=== PATIENT | female | born 1965 | race Caucasian/White ===

== ENCOUNTER 2018-01-28 01:25 | Emergency (ER) | payer OTHER ==
--- OUTSIDE RECORDS SUMMARY | 2018-01-28 01:27 | XMS REPORT ---
:1965 Author Organization [facility] Address [address] [place] [address] Dr. Baker [address] [place] [id number] Care Team Providers Name Role Phone Sg CORDOVA Primary Care Provider Unavailable MARKO CORDOVA M.D. Unavailable Unavailable Problems This patient has no known problems. Allergies, Adverse Reactions, Alerts This patient has no known allergies or adverse reactions. Medications This patient has no known medications. Results Test Description Test Time Test Comments Text Results Atomic Results Result Comments POC Glucose, Blood 2017-11-03 05:26:00 Test Item Value Reference Range Comments POC Glucose (test code=POCGLUC) 136 mg/dL 70-115 Notify RN or MDIf you consider your patient critically ill, the Moira Accu-Chek InformII metershould not be used for Glucose determinations.Draw a venous Glucose and send to the Main Lab for Analysis. [id number] 08:15:00 Test Item Value Reference Range Comments [place] (test code=LI) 0.44 mmol/L 0.6-1.2 POC Glucose, [id number] 05:37:00 Test Item Value Reference Range Comments POC Glucose (test 134 mg/dL 70-115 If you consider your patient code=POCGLUC) critically ill, the Moira Accu-Chek InformII metershould not be used for Glucose determinations.Draw a venous Glucose and send to the Main Lab for Analysis. POC Glucose, [id number] 07:28:00 Test Item Value Reference Range Comments POC Glucose (test 128 mg/dL 70-115 If you consider your patient code=POCGLUC) critically ill, the Moira Accu-Chek InformII metershould not be used for Glucose determinations.Draw a venous Glucose and send to the Main Lab for Analysis. POC Glucose, [id number] 20:18:00 Test Item Value Reference Range Comments POC Glucose (test 121 mg/dL 70-115 If you consider your patient code=POCGLUC) critically ill, the [place]ira Accu-Chek InformII metershould not be used for Glucose determinations.Draw a venous Glucose and send to the Main Lab for Analysis. BHCG, Serum, [id number] 22:36:00 Test Item Value Reference Range Comments Preg Qual [Se] (test code=BSHCG) Negative Negative POC Glucose, [id number] 15:14:00 Test Item Value Reference Range Comments POC Glucose (test 117 mg/dL 70-115 If you consider your patient code=POCGLUC) critically ill, the Moira Accu-Chek InformII metershould not be used for Glucose determinations.Draw a venous Glucose and send to the Main Lab for Analysis.
[2018-01-28] MEDS ORDERED: LIDOCAINE VISCOUS 2% SOLN 15 ML UDC ONE (02:03)
--- NOTE | 2018-01-28 02:09 | EDPHYS ---
Physician Documentation [facility] Name: Wendi Norton Age: 52 yrs Sex: Female : 1965 Arrival Date: 01/28/2018 Time: 01:26 Bed 18 Private MD: ED Physician Cornelius Vyas HPI: 01/28 01:38 This 52 yrs old Female presents to ER via EMS with complaints of Vaginal Pain.snw 01:38 The patient presents with vaginal pain. Onset: The symptoms/episode began/occurred snw suddenly, just prior to arrival. Modifying factors: The symptoms are alleviated by nothing, the symptoms are aggravated by movement, sexual intercourse, walking, urinating. Associated signs and symptoms: The patient has no apparent associated signs or symptoms. Severity of symptoms: At their worst the symptoms were moderate, severe. The patient has experienced a previous episode, many years ago. It is unknown whether or not the patient has recently seen a physician. 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 - Social history:: Smoking status: unknown. ROS: 01:37 Constitutional: Negative for fever, chills, and weight loss, Eyes: Negative for injury, snw pain, redness, and discharge, ENT: Negative for injury, pain, and discharge, Neck: Negative for injury, pain, and swelling, Cardiovascular: Negative for chest pain, palpitations, and edema, Respiratory: Negative for shortness of breath, cough, wheezing, and pleuritic chest pain, Abdomen/GI: Negative for abdominal pain, nausea, vomiting, diarrhea, and constipation, Back: Negative for injury and pain, MS/Extremity: Negative for injury and deformity, Skin: Negative for injury, rash, and discoloration, Neuro: Negative for headache, weakness, numbness, tingling, and seizure, Psych: Negative for depression, anxiety, suicide ideation, homicidal ideation, and hallucinations. 01:37 : Positive for urinary symptoms, vaginal burning. Exam: 01:35 Constitutional: This is a well developed, well nourished patient who is awake, alert, snw and in no acute distress. Head/Face: Normocephalic, atraumatic. Eyes: Pupils equal round and reactive to light, extra-ocular motions intact. Lids and lashes normal. Conjunctiva and sclera are non-icteric and not injected. Cornea within normal limits. Periorbital areas with no swelling, redness, or edema. ENT: Nares patent. No nasal discharge, no septal abnormalities noted. Tympanic membranes are normal and external auditory canals are clear. Oropharynx with no redness, swelling, or masses, exudates, or evidence of obstruction, uvula midline. Mucous membranes moist. Neck: Trachea midline, no thyromegaly or masses palpated, and no cervical lymphadenopathy. Supple, full range of motion without nuchal rigidity, or vertebral point tenderness. No Meningismus. Chest/axilla: Normal chest wall appearance and motion. Nontender with no deformity. No lesions are appreciated. Cardiovascular: Regular rate and rhythm with a normal S1 and S2. No gallops, murmurs, or rubs. Normal PMI, no JVD. No pulse deficits. Respiratory: Lungs have equal breath sounds bilaterally, clear to auscultation and percussion. No rales, rhonchi or wheezes noted. No increased work of breathing, no retractions or nasal flaring. Abdomen/GI: Soft, non-tender, with normal bowel sounds. No distension or tympany. No guarding or rebound. No evidence of tenderness throughout. Back: No spinal tenderness. No costovertebral tenderness. Full range of motion. Pelvic Exam: Tender external genital. Pt unwilling to allow full view. Hx of blistered lesions to perineal before. Will place topical lidocaine and eval cath urine Skin: Warm, dry with normal turgor. Normal color with no rashes, no lesions, and no evidence of cellulitis. MS/ Extremity: Pulses equal, no cyanosis. Neurovascular intact. Full, normal range of motion. Neuro: Awake and alert, GCS 15, oriented to person, place, time, and situation. Cranial nerves II-XII grossly intact. Motor strength 5/5 in all extremities. Sensory grossly intact. Cerebellar exam normal. Normal gait. Psych: Awake, alert, with orientation to person, place and time. Behavior, mood, and affect are within normal limits. Vital Signs: 01:33 BP 114 / 62; Pulse 87; Resp 20 S; Temp 98.2(O); Pulse Ox 97% on R/A; Weight 86.18 kg bb (R); Height 5 ft. 4 in. (162.56 cm) (R); Pain 9/10; 02:20 BP 120 / 75; Pulse 86; Resp 17 S; Pulse Ox 97% on R/A; jd3 01:33 Body Mass Index 32.61 (86.18 kg, 162.56 cm) bb MDM: 01:27 Patient medically screened. snw 02:11 Data reviewed: vital signs, nurses notes. Data interpreted: Pulse oximetry: on room air snw is 97 %. Interpretation: normal. Counseling: I had a detailed discussion with the patient and/or guardian regarding: the historical points, exam findings, and any diagnostic results supporting the discharge/admit diagnosis, the need for outpatient follow up, to return to the emergency department if symptoms worsen or persist or if there are any questions or concerns that arise at home. Special discussion: Based on the history and exam findings, there is no indication for further emergent testing or inpatient evaluation. I discussed with the patient/guardian the need to see the OB Gyne specialist for further evaluation of the symptoms. I discussed with the patient/guardian the need to see the primary care provider for further evaluation of the symptoms. 01/28 01:40 Order name: Urine Culture w 01/28 01:40 Order name: Urine Microscopic Only w 01/28 02:06 Order name: Urine Dipstick--Ancillary (enter results) rg2 01/28 02:35 Order name: Urine Dipstick-Ancillary; Complete Time: 16:10 EDMS 01/28 02:49 Order name: Urine Microscopic Only; Complete Time: 16:10 EDMS 01/28 01:40 Order name: Cath; Complete Time: 01:56 snw 01/28 01:40 Order name: Urine Dipstick-Ancillary (obtain specimen); Complete Time: 01:56 snw Administered Medications: 02:01 Drug: Lidocaine Gel 2 % 1 application Route: Mucous Membrane; ea Disposition: 06:14 Co-signature as Attending Physician, Cornelius Vyas MD. Disposition: 01/28/18 02:08 Discharged to Home. Impression: Pain in vagina, Dysuria. - Condition is Stable. - Discharge Instructions: Dysuria, Sitz Bath, Atrophic Vaginitis, [id number]. - Prescriptions for Lubricating Plus - Apply to affected area 1 application by VAGINAL route 2 times per day; 1 Container. - Medication Reconciliation Form, Thank You Letter, Antibiotic Education, Prescription Opioid Use form. - Follow up: Private Physician; When: Tomorrow; Reason: Recheck today's complaints, Continuance of care, Re-evaluation by your physician. Follow up: Emergency Department; When: As needed; Reason: Worsening of condition. Signatures: Dispatcher [employer] EDMS Sveta Moss, MAILING MANAGER-C MAILING MANAGER-Csnw Carli Ren, RN RN Akua Campbell RN Cornelius Olson ea, MD MD gs Davies, Jonathon RN RN jd3
--- NOTE | 2018-01-28 02:09 | ER ---
Nurse's Notes [facility] Name: Wendi Norton Age: 52 yrs Sex: Female : 1965 Arrival Date: 01/28/2018 Time: : Bed 18 Private MD: Diagnosis: Pain in vagina;Dysuria Presentation: 01/28 01:20 Presenting complaint: EMS states: they were toned out for report of pt having vaginal bb pain. Transition of care: patient was not received from another setting of care. Onset of symptoms was January 28, 2018. Care prior to arrival: None. 01:20 Method Of Arrival: EMS: [facility] bb 01:20 Acuity: RAUL 3 bb [place]: 02:23 LMP N/A - Post-menopause jd3 Historical: - Allergies: : NKDA; bb - PMHx: :33 Asthma; Bipolar disorder; COPD; Depression; Diabetes - NIDDM; Diverticulitis; bb Hepatitis; PTSD; - Immunization history:: Adult Immunizations unknown. - Social history:: Smoking status: unknown. Screenin:34 Abuse screen: Denies threats or abuse. Nutritional screening: No deficits noted. jd3 Tuberculosis screening: No symptoms or risk factors identified. Fall Risk Mental Status- Overestimates/Forgets Limitations (15 pts.). Total Singleton Fall Scale indicates No Risk (0-24 pts). Assessment: 01:30 General: Appears in no apparent distress. uncomfortable, Behavior is calm, cooperative, jd3 appropriate for age. Pain: Complains of pain in suprapubic area Quality of pain is described as aching, sharp. Neuro: Level of Consciousness is awake, alert, obeys commands, Oriented to person, place, time, situation. Cardiovascular: Heart tones S1 S2 present Capillary refill < 3 seconds Patient's skin is warm and dry. Respiratory: Airway is patent Respiratory effort is even, unlabored, Respiratory pattern is regular, symmetrical, Breath sounds are clear bilaterally. GI: Abdomen is round Bowel sounds present X 4 quads. Abd is soft Abdomen is tender to palpation in suprapubic area. : No signs and/or symptoms were reported regarding the genitourinary system. EENT: No signs and/or symptoms were reported regarding the EENT system. Derm: Skin is intact, Skin is dry, Skin is normal, Skin temperature is warm. Musculoskeletal: Circulation, motion, and sensation intact. Range of motion: intact in all extremities. 02:00 Reassessment: Patient appears in no apparent distress at this time. Patient and/or jd3 family updated on plan of care and expected duration. Pain level reassessed. Patient is alert, oriented x 3, equal unlabored respirations, skin warm/dry/pink. pt requesting pain medication, provider notified, no new orders at this time. 02:21 Reassessment: Patient appears in no apparent distress at this time. Patient and/or jd3 family updated on plan of care and expected duration. Pain level reassessed. Patient is alert, oriented x 3, equal unlabored respirations, skin warm/dry/pink. pt reporting some pain relief while sitting upright, continues to request pain medication, provider notified, no new orders at this time. 03:10 Reassessment: Patient appears in no apparent distress at this time. Patient and/or jd3 family updated on plan of care and expected duration. Pain level reassessed. Patient is alert, oriented x 3, equal unlabored respirations, skin warm/dry/pink. pt reported understanding of discharge instructions, even and steady gait upon discharge. Vital Signs: 01:33 BP 114 / 62; Pulse 87; Resp 20 S; Temp 98.2(O); Pulse Ox 97% on R/A; Weight 86.18 kg bb (R); Height 5 ft. 4 in. (162.56 cm) (R); Pain 9/10; 02:20 BP 120 / 75; Pulse 86; Resp 17 S; Pulse Ox 97% on R/A; jd3 01:33 Body Mass Index 32.61 (86.18 kg, 162.56 cm) bb ED Course: 01:26 Patient arrived in ED. ds1 01:27 [facility] snw 01:27 Cornelius Vyas MD is Attending Physician. snw 01:30 Eduin Nuno RN is Primary Nurse. jd3 01:32 Triage completed. bb 01:33 Arm band placed on Patient placed in an exam room, on a stretcher, on pulse oximetry. bb 01:34 Patient has correct armband on for positive identification. Bed in low position. Call jd3 light in reach. Side rails up X2. 03:08 No provider procedures requiring assistance completed. Patient did not have IV access jd3 during this emergency room visit. Administered Medications: 02:01 Drug: Lidocaine Gel 2 % 1 application Route: Mucous Membrane; ea Output: 02:01 Urine: 700ml (Straight Cath); Total: 700ml. ea Outcome: 02:08 Discharge ordered by . polo 03:09 Discharged to home ambulatory. jd3 03:09 Condition: stable 03:09 Discharge instructions given to patient, Instructed on discharge instructions, follow up and referral plans. medication usage, Demonstrated understanding of instructions, follow-up care, medications, Prescriptions given X 1. 03:09 Patient left the ED. jd3 Addendum: 01/31/2018 09:17 Addendum: Culture Results: Positive urine culture. Patient was not prescribed i w antibiotics at discharge. Report given to KEO for further evaluation and then to quality improvement analyst for follow up with patient. Phone call Attempt #1 pt did not answer, left voice mail with call back number. Signatures: Sveta Moss, PRODUCTION BORING MACHINE OPERATOR-C PRODUCTION BORING MACHINE OPERATOR-Csnw Luana Villegas ds1 Carli Ren, RN RN Danette Thomas, RN Akua Ramos, Eduin Parsons RN, ea, RN RN jd3
[2018-01-28 02:35] LABS: Urine Blood TRACE (NEG); Urine Glucose NEGATIVE (NEG); Urine Protein NEGATIVE (NEG)
[2018-01-28 02:48] LABS: Urine Bacteria <20 /HPF (<20); Urine Culture Reflex Order NOT NEEDED; Urine RBC <5 /HPF (NONE SEEN)
[2018-01-28 03:22] VITALS: TEMP 98.2; O2SAT 97
[2018-01-28 03:23] VITALS: BP 120/75
== END 2018-01-28 03:09 | disposition home or self-care (01) ==
LOC: ER 01:25
DX: R30.0 Dysuria (principal)
CPT/HCPCS: 81003; 81015; 87077; 87086; 87088; 87186; 99284

== ENCOUNTER 2018-05-03 13:16 | Emergency (ER) | payer OTHER ==
--- OUTSIDE RECORDS SUMMARY | 2018-05-03 13:20 | XMS REPORT ---
:1965 Author Organization [facility] Address [address] [place] [address] Dr. Baker [address] [place] [address] Care Team Providers Name Role Phone MARKO CORDOVA Primary Care Provider Unavailable MARKO CORDOVA [...] send to the Main Lab for Analysis. [id number] 08:15:00 Test Item Value Reference Range Comments [place] (test code=LI) 0.44 mmol/L 0.6-1.2 POC Glucose, [id number] 05:37:00 Test Item Value Reference Range Comments POC Glucose (test 134 mg/dL 70-115 If you consider your patient code=POCGLUC) critically ill, the Moira Accu-Chek InformII metershould not be used for Glucose determinations.Draw a venous Glucose and send to the Main Lab for Analysis. POC Glucose, [id number] 07:28:00 Test Item Value Reference Range Comments POC Glucose (test 128 mg/dL 70-115 If you consider your patient code=POCGLUC) critically ill, the Moira Accu-Chek InformII metershould not be used for Glucose determinations.Draw a venous Glucose and send to the Main Lab for Analysis. POC Glucose, [id number] 20:18:00 Test Item Value Reference Range Comments POC Glucose (test 121 mg/dL 70-115 If you consider your patient code=POCGLUC) critically ill, the Moira Accu-Chek InformII metershould not be used for Glucose determinations.Draw a venous Glucose and send to the Main Lab for Analysis. BHCG, Serum, [id number] 22:36:00 Test Item Value Reference Range Comments Preg Qual [Se] (test code=BSHCG) Negative Negative POC Glucose, [id number] 15:14:00 Test Item Value Reference Range Comments POC Glucose (test 117 mg/dL 70-115 If you consider your patient code=POCGLUC) critically ill, the Moira Accu-Chek InformII metershould not be used for Glucose determinations.Draw a venous Glucose and send to the Main Lab for Analysis.
--- OUTSIDE RECORDS SUMMARY | 2018-05-03 13:20 | XMS REPORT | Clinical Summary ---
:1965 Author Organization [facility] Address [address] [place] [address] Phone Care Team Providers Name Role Phone Unavailable Primary Care Provider Unavailable Allergies No Known Allergies Current Medications Prescription Sig. Disp. Refills Start Date End Date Status QUEtiapine (SEROQUEL) Take 100 mg by mouth Active 100 MG tablet nightly. lithium 150 MG capsule Take 300 mg by mouth. Active FLUOXETINE, BULK, MISC 40 mg by Miscellaneous Active route . clonazePAM (KLONOPIN) Take 2 mg by mouth 2 Active 2 MG tablet (two) times daily as needed for Anxiety. dextroamphetamine-amph Take 10 mg by mouth. Active etamine 5 mg Tab pregabalin (LYRICA) 50 Take 50 mg by mouth 3 Active MG capsule (three) times daily. topiramate (TOPAMAX) Take 50 mg by mouth 2 Active 50 MG tablet (two) times daily. Active Problems Problem Noted Date Shortness of breath 04/22/2016 Social History Tobacco Use Types Packs/Day Years Used Date Current Every Day Smoker Smokeless Tobacco: Never Used Alcohol Use Drinks/Week oz/Week Comments No Sex Assigned at Date Recorded Not on file Last Filed Vital Signs Not on file Plan of Treatment Not on file Results Not on fileafter 05/02/2017
--- NOTE | 2018-05-03 14:58 | ER ---
Nurse's Notes [facility] Name: Wendi Norton Age: 52 yrs Sex: Female : 1965 Arrival Date: 05/03/2018 Time: 13:21 Bed 24 Private MD: None, None Diagnosis: Cellulitis of chest wall Presentation: 05/03 13:24 Presenting complaint: Patient states: recently had a partial mastectomy to the left sv breast and reports drainage and foul smell. Was done about a week and a half ago. Transition of care: patient was not received from another setting of care. Onset of symptoms was May 03, 2018. Care prior to arrival: None. 13:24 Method Of Arrival: Wheelchair sv 13:24 Acuity: RAUL 3 sv 14:22 Risk Assessment: Do you want to hurt yourself or someone else? Patient reports no kr2 desire to harm self or others. Other: first officer at bedside. States he received a report that patient called MD Hawley and stated she would kill herself if someone did not prescribe her pain medication. She states she said this out of anger and has no desire or intention of hurting herself or anyone else. Initial Sepsis Screen: Does the patient meet any 2 criteria? No. Patient's initial sepsis screen is negative. Does the patient have a suspected source of infection? No. Patient's initial sepsis screen is negative. Triage Assessment: 13:24 General: Appears uncomfortable, obese, Behavior is calm, cooperative, appropriate for sv age. Pain: Complains of pain in left breast Pain currently is 8 out of 10 on a pain scale. Neuro: Level of Consciousness is awake, alert, obeys commands, Oriented to person, place, time, situation, Moves all extremities. Full function. Respiratory: Respiratory effort is even, unlabored, Respiratory pattern is regular, symmetrical. Derm: Skin is normal. Historical: - Allergies: 13:26 NKDA; sv - Home Meds: :26 quetiapine 300 mg Oral tab 2 tabs nightly [Active]; Ambien 12.5 MG Oral 1 tab nightly sv [Active]; Adderall XR Oral 1 cap once daily [Active]; clonazepam 2 mg Oral tab 1 tab 2 times per day [Active]; fluoxetine 40 mg Oral cap 1 cap once daily [Active]; [place] Carbonate Oral 1 cap 3 times per day [Active]; vicodin [Active]; - PMHx: 13:26 Asthma; Bipolar disorder; COPD; Depression; Diabetes - NIDDM; Diverticulitis; sv Hepatitis; PTSD; - Immunization history:: Adult Immunizations up to date. - Social history:: Smoking status: Patient uses tobacco products, smokes one-half pack cigarettes per day. - Ebola Screening: : No symptoms or risks identified at this time. Screenin:21 Abuse screen: Denies threats or abuse. Denies injuries from another. Nutritional kr2 screening: No deficits noted. Tuberculosis screening: No symptoms or risk factors identified. Fall Risk None identified. Assessment: 14:20 General: Appears in no apparent distress. uncomfortable, well groomed, well developed, kr2 well nourished, Behavior is cooperative, anxious, restless. Pain: Complains of pain in left breast Pain does not radiate. Pain currently is 6 out of 10 on a pain scale. Quality of pain is described as sharp, tender, Is continuous, Alleviated by nothing. Aggravated by touch. Neuro: Cardiovascular: Capillary refill < 3 seconds in bilateral fingers Patient's skin is warm and dry. Respiratory: Airway is patent Respiratory effort is even, unlabored, Respiratory pattern is regular, symmetrical. GI: Abdomen is flat, non-distended. : Denies burning with urination. EENT: Oral mucosa is moist. Derm: Skin is intact, is healthy with good turgor, Skin is pink, warm \T\ dry. Musculoskeletal: Circulation, motion, and sensation intact. 15:10 Reassessment: Patient appears in no apparent distress at this time. Patient and/or kr2 family updated on plan of care and expected duration. Pain level reassessed. Patient is alert, oriented x 3, equal unlabored respirations, skin warm/dry/pink. Patient states feeling better. Vital Signs: 13:26 BP 149 / 75; Pulse 101; Resp 18; Temp 99.2(O); Pulse Ox 97% ; Weight 92.53 kg; Height 5 sv ft. 4 in. (162.56 cm); Pain 8/10; 15:00 BP 146 / 70; Pulse 110; Resp 16; Pulse Ox 99% on R/A; kr2 13:26 Body Mass Index 35.02 (92.53 kg, 162.56 cm) sv ED Course: 13:21 Patient arrived in ED. mr 13:22 None, None is Private Physician. mr 13:25 Triage completed. 13:27 Arm band placed on left wrist. 13:55 Cornelius Vyas MD is Attending Physician. 14:20 Verona Hull, RN is Primary Nurse. kr2 14:23 Patient has correct armband on for positive identification. Bed in low position. Call kr2 light in reach. Side rails up X2. Pulse ox on. NIBP on. Door closed. Warm blanket given. Head of bed elevated. 15:05 Patient did not have IV access during this emergency room visit. kr2 21:52 No provider procedures requiring assistance completed. kr2 Administered Medications: No medications were administered Outcome: 14:57 Discharge ordered by . 15:30 Discharged to home ambulatory. kr2 15:30 Condition: good 15:30 Discharge instructions given to patient, Instructed on discharge instructions, follow up and referral plans. medication usage, Demonstrated understanding of instructions, follow-up care, medications, Prescriptions given X 2. 15:38 Patient left the ED. kr2 Signatures: Padmini Scott, RN RN Eve Arora mr Cornelius Vyas MD MD Verona Hull, RN RN kr2
--- NOTE | 2018-05-03 14:58 | EDPHYS ---
Physician Documentation [facility] Name: Wendi Norton Age: 52 yrs Sex: Female : 1965 Arrival Date: 05/03/2018 Time: 13:21 Bed 24 Private MD: None, None ED Physician Cornelius Vyas HPI: 05/03 14:27 This 52 yrs old Female presents to ER via Wheelchair with complaints of gs Breast Problem. 14:27 Patient presents to ED for recheck of: breast surgery incisions red painful. The gs affected area is on the left breast. The affected area is on the left axilla. The patient has not experienced similar symptoms in the past. Historical: - Allergies: 13:26 NKDA; sv - Home Meds: 13:26 quetiapine 300 mg Oral tab 2 tabs nightly [Active]; Ambien 12.5 MG Oral 1 tab nightly sv [Active]; Adderall XR Oral 1 cap once daily [Active]; clonazepam 2 mg Oral tab 1 tab 2 times per day [Active]; fluoxetine 40 mg Oral cap 1 cap once daily [Active]; Bethania Carbonate Oral 1 cap 3 times per day [Active]; vicodin [Active]; - PMHx: 13:26 Asthma; Bipolar disorder; COPD; Depression; Diabetes - NIDDM; Diverticulitis; sv Hepatitis; PTSD; - Immunization history:: Adult Immunizations up to date. - Social history:: Smoking status: Patient uses tobacco products, smokes one-half pack cigarettes per day. - Ebola Screening: : No symptoms or risks identified at this time. ROS: 14:27 All other systems are negative. gs 15:34 Psych: Negative for suicide gesture, suicidal ideation, acute changes. gs Exam: 14:27 Head/Face: Normocephalic, atraumatic. ENT: Nares patent. No nasal discharge, no gs septal abnormalities noted. Tympanic membranes are normal and external auditory canals are clear. Oropharynx with no redness, swelling, or masses, exudates, or evidence of obstruction, uvula midline. Mucous membranes moist. Neck: Trachea midline, no thyromegaly or masses palpated, and no cervical lymphadenopathy. Supple, full range of motion without nuchal rigidity, or vertebral point tenderness. No Meningismus. Cardiovascular: Regular rate and rhythm with a normal S1 and S2. No gallops, murmurs, or rubs. Normal PMI, no JVD. No pulse deficits. Respiratory: Lungs have equal breath sounds bilaterally, clear to auscultation and percussion. No rales, rhonchi or wheezes noted. No increased work of breathing, no retractions or nasal flaring. Abdomen/GI: Soft, non-tender, with normal bowel sounds. No distension or tympany. No guarding or rebound. No evidence of tenderness throughout. 14:27 Constitutional: The patient appears alert, awake. 14:27 Chest/axilla: Axilla: cellulitis, that is moderate, of the left axilla, incision, Breasts: cellulitis, that is mild of the left breast. 14:27 Skin: cellulitis, see breast exam. Vital Signs: 13:26 BP 149 / 75; Pulse 101; Resp 18; Temp 99.2(O); Pulse Ox 97% ; Weight 92.53 kg; Height 5 sv ft. 4 in. (162.56 cm); Pain 8/10; 15:00 BP 146 / 70; Pulse 110; Resp 16; Pulse Ox 99% on R/A; kr2 13:26 Body Mass Index 35.02 (92.53 kg, 162.56 cm) sv MDM: 14:07 Patient medically screened. 14:27 Differential diagnosis: cellulitis, wound dehiscence, spoke dr baig wants on cipro gs doxy will see tomorrow, says on pain contact so no pain meds. Data reviewed: vital signs, nurses notes. Administered Medications: No medications were administered Disposition: 05/03/18 14:57 Discharged to Home. Impression: Cellulitis of chest wall. - Condition is Stable. - Discharge Instructions: Cellulitis. - Prescriptions for Cipro 500 mg Oral Tablet - take 1 tablet by ORAL route every 12 hours for 7 days; 14 tablet. Doxycycline Hyclate 100 mg Oral Tablet - take 1 tablet by ORAL route every 12 hours; 14 tablet. Ibuprofen 800 mg Oral Tablet - take 1 tablet by ORAL route every 8 hours As needed take with food; 30 tablet. - Medication Reconciliation Form, Thank You Letter, Antibiotic Education, Prescription Opioid Use form. - Follow up: Private Physician; When: 2 - 3 days; Reason: Re-evaluation by your physician. Signatures: Padmini Scott RN RN sv Cornelius Vyas MD MD gs Reaves, Karey, RN RN kr2 Corrections: (The following items were deleted from the chart) 15:38 14:57 05/03/2018 14:57 Discharged to Home. Impression: Cellulitis of chest wall. kr2 Condition is Stable. Forms are Medication Reconciliation Form, Thank You Letter, Antibiotic Education, Prescription Opioid Use. Follow up: Private Physician; When: 2 - 3 days; Reason: Re-evaluation by your physician.
[2018-05-03 15:49] VITALS: BP 149/75; TEMP 99.2; O2SAT 97
== END 2018-05-03 15:38 | disposition home or self-care (01) ==
LOC: ER 13:16
DX: L03.313 Cellulitis of chest wall (principal); F17.210 Nicotine dependence, cigarettes, uncomplicated; J45.909 Unspecified asthma, uncomplicated; E11.9 Type 2 diabetes mellitus without complications; K75.9 Inflammatory liver disease, unspecified
CPT/HCPCS: 99283

== ENCOUNTER 2018-11-05 20:35 | Emergency (ER) | payer OTHER ==
--- OUTSIDE RECORDS SUMMARY | 2018-11-05 20:38 | XMS REPORT | Clinical Summary ---
:1965 Author Organization [facility] Address [address] [place] [address] Care Team Providers Name Role Phone Unavailable Primary Care Provider Unavailable Allergies No Known Allergies Medications Medication Sig Dispensed Refills Start Date End Date Status QUEtiapine Take 100 mg by mouth 0 Active (SEROQUEL) 100 MG nightly. tablet lithium 150 MG Take 300 mg by mouth. 0 Active capsule FLUOXETINE, BULK, 40 mg by 0 Active MISC Miscellaneous route . clonazePAM Take 2 mg by mouth 2 0 Active (KLONOPIN) 2 MG (two) times daily as tablet needed for Anxiety. dextroamphetamine-a Take 10 mg by mouth. 0 Active mphetamine 5 mg Tab pregabalin (LYRICA) Take 50 mg by mouth 3 0 Active 50 MG capsule (three) times daily. topiramate Take 50 mg by mouth 2 0 Active (TOPAMAX) 50 MG (two) times daily. tablet Active Problems Problem Noted Date Shortness of breath 04/22/2016 Social History Tobacco Use Types Packs/Day Years Used Date Current Every Day Smoker Smokeless Tobacco: Never Used Alcohol Use Drinks/Week oz/Week Comments No Sex Assigned at Date Recorded Not on file Job Start Date Occupation Industry Not on file Not on file Not on file Travel History Travel Start Travel End No recent travel history available. Last Filed Vital Signs Not on file Plan of Treatment Not on file Results Not on fileafter 11/04/2017 Insurance Payer Benefit Plan / Group Subscriber ID Type Phone Address MEDICARE MEDICARE A B xxxxxxxxxx Medicare MEDICAID MEDICAID [facility] xxxxxxxxx Medicaid Advance Directives For more information, please contact:[place] [id number] [facility] [place], [place] [phone] Code Status Date Activated Date Inactivated Comments Full Code 04/22/2016 12:20 PM 04/29/2016 5:47 PM This code status was determined by: Patient
--- OUTSIDE RECORDS SUMMARY | 2018-11-05 20:38 | XMS REPORT ---
:1965 Author Organization [facility] Address [address] [place] [address] Dr. Baker [address] [place] [id number] Care Team Providers Name Role Phone MARKO [...] send to the Main Lab for Analysis. [id number] 08:15:00 Test Item Value Reference Range Comments Experiment (test code=LI) 0.44 mmol/L 0.6-1.2 POC Glucose, [id number] 05:37:00 Test Item Value Reference Range Comments POC Glucose (test 134 mg/dL 70-115 If you consider your patient code=POCGLUC) critically ill, the Moira Accu-Chek InformII metershould not be used for Glucose determinations.Draw a venous Glucose and send to the Main Lab for Analysis. POC Glucose, [id number] 07:28:00 Test Item Value Reference Range Comments POC Glucose (test 128 mg/dL 70-115 If you consider your patient code=POCGLUC) critically ill, the Moira Accu-Chek InformII metershould not be used for Glucose determinations.Draw a venous Glucose and send to the Main Lab for Analysis. POC Glucose, [id number] 20:18:00 Test Item Value Reference Range Comments POC Glucose (test 121 mg/dL 70-115 If you consider your patient code=POCGLUC) critically ill, the Moira Accu-Chek InformII metershould not be used for Glucose determinations.Draw a venous Glucose and send to the Main Lab for Analysis. BHCG, Serum, [id number] 22:36:00 Test Item Value Reference Range Comments Preg Qual [Se] (test code=BSHCG) Negative Negative POC Glucose, [id number] 15:14:00 Test Item Value Reference Range Comments POC Glucose (test 117 mg/dL 70-115 If you consider your patient code=POCGLUC) critically ill, the Moira Accu-Chek InformII metershould not be used for Glucose determinations.Draw a venous Glucose and send to the Main Lab for Analysis.
[2018-11-05] MEDS ORDERED: HYDROCODONE/APAP 7.5/325 MG TAB ONE (21:31)
--- NOTE | 2018-11-05 22:01 | ER ---
Nurse's Notes [facility] Name: Wendi Norton Age: 53 yrs Sex: Female : 1965 Arrival Date: 11/05/2018 Time: 20:43 Bed 14 Private MD: Diagnosis: Pain in right ankle and joints of right foot;Pain in left ankle and joints of left foot Presentation: 11/05 20:58 Presenting complaint: Patient states: She fell last night and then again this morning. aj1 States she landed on her left knee both times, and now she is having pain to the left knee and both feet. Patient also states that she hit the left side of her head. Small laceration noted above left eye, not currently bleeding. Patient denies LOC, vomiting. Transition of care: patient was not received from another setting of care. Onset of symptoms was November 05, 2018. Risk Assessment: Do you want to hurt yourself or someone else? Patient reports no desire to harm self or others. Initial Sepsis Screen: Does the patient meet any 2 criteria? No. Patient's initial sepsis screen is negative. Does the patient have a suspected source of infection? No. Patient's initial sepsis screen is negative. Care prior to arrival: None. 20:58 Method Of Arrival: Ambulatory aj1 20:58 Acuity: RAUL 4 aj1 Triage Assessment: 21:03 General: Appears in no apparent distress. comfortable, Behavior is calm, cooperative, aj1 appropriate for age. Pain: Complains of pain in right foot, left foot and left knee. Neuro: Level of Consciousness is awake, alert, obeys commands. Neuro: Oriented to person, place, time, situation, Moves all extremities. Full function Gait is steady, Speech is normal, Facial symmetry appears normal. Cardiovascular: Patient's skin is warm and dry. Respiratory: Airway is patent Respiratory effort is even, unlabored, Respiratory pattern is regular, symmetrical. 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 - Social history:: Smoking status: Patient uses tobacco products, denies chronic smoking, but will smoke occasionally. - Ebola Screening: : Patient denies travel to an Ebola-affected area in the 21 days before illness onset. Screenin:01 Abuse screen: Denies threats or abuse. Nutritional screening: No deficits noted. jb4 Tuberculosis screening: No symptoms or risk factors identified. Fall Risk Fall in past 12 months (25 points). Total Singleton Fall Scale indicates Low Risk Score (25-44 pts). Assessment: 21:01 General: Appears in no apparent distress. uncomfortable, Behavior is calm, cooperative, jb4 appropriate for age. Pain: Complains of pain in left knee, Bilaterall ankles Pain does not radiate. Pain currently is 10 out of 10 on a pain scale. Quality of pain is described as stabbing. Neuro: Level of Consciousness is awake, alert, obeys commands, Oriented to person, place, time, situation. Cardiovascular: Patient's skin is warm and dry. Respiratory: Airway is patent Respiratory effort is even, unlabored, Respiratory pattern is regular, symmetrical. GI: No signs and/or symptoms were reported involving the gastrointestinal system. Patient currently denies nausea, vomiting. : No signs and/or symptoms were reported regarding the genitourinary system. EENT: No signs and/or symptoms were reported regarding the EENT system. Derm: Skin is intact, Skin is pink, warm \T\ dry. Musculoskeletal: Circulation, motion, and sensation intact. Reports pain in left knee, Bilaterall ankles. 22:23 Reassessment: Patient appears in no apparent distress at this time. Patient and/or jb4 family updated on plan of care and expected duration. Pain level reassessed. Patient is alert, oriented x 3, equal unlabored respirations, skin warm/dry/pink. Discussed D/c, F/u with pt, denies questions or concerns. Vital Signs: 21:03 BP 118 / 82; Pulse 83; Resp 18; Temp 98.0; Pulse Ox 96% on R/A; aj1 22:00 BP 130 / 86; Pulse 77; Resp 16; Pulse Ox 95% on R/A; jb4 ED Course: 20:43 Patient arrived in ED. es 20:49 Sunny Waller, RN is Primary Nurse. jb4 20:58 Alphonso Simeon PA is PHCP. jr8 20:58 Juwan Dyer MD is Attending Physician. jr8 20:59 Triage completed. aj1 21:01 Patient has correct armband on for positive identification. Bed in low position. Call jb4 light in reach. Side rails up X 1. Pulse ox on. NIBP on. 21:03 Arm band placed on Patient placed in an exam room, on a stretcher. aj1 21:43 XRAY Ankle LEFT 3 view In Process Unspecified. EDMS 21:43 XRAY Ankle RIGHT 3 view In Process Unspecified. EDMS 22:00 No provider procedures requiring assistance completed. Patient did not have IV access jb4 during this emergency room visit. Administered Medications: 21:25 Drug: [place] (7.5 mg-325 mg) 1 tabs Route: PO; jb4 22:28 Follow up: Response: No adverse reaction; Pain is decreased jb4 Outcome: 22:01 Discharge ordered by . jr8 22:27 Discharged to home ambulatory, with significant other. jb4 22:27 Condition: stable 22:27 Discharge instructions given to patient, Instructed on discharge instructions, follow up and referral plans. medication usage, Demonstrated understanding of instructions, follow-up care, medications, Prescriptions given X 1. 22:28 Patient left the ED. jb4 Signatures: Dispatcher [employer] Gaviota Desai, RN RN aj1 Yu Handy Josh, PA PA jr8 Sunny Waller, RN RN jb4
--- NOTE | 2018-11-05 22:02 | EDPHYS ---
Physician Documentation [facility] Name: Wendi Norton Age: 53 yrs Sex: Female : 1965 Arrival Date: 11/05/2018 Time: 20:43 Bed 14 Private MD: ED Physician Juwan Dyer HPI: 11/05 21:29 This 53 yrs old Female presents to ER via Ambulatory with complaints of Leg jr8 Pain. 21:29 Onset: The symptoms/episode began/occurred acutely, yesterday. Modifying factors: The jr8 symptoms are alleviated by nothing. the symptoms are aggravated by movement. Associated signs and symptoms: The patient has no apparent associated signs or symptoms. Severity of symptoms: At their worst the symptoms were mild, in the emergency department the symptoms are unchanged. The patient has not experienced similar symptoms in the past. The patient has not recently seen a physician. Patient stated that she fell while signing to a song. Hurt both ankle regions. Able to ambulate but with pain. Denies LOC. Denies pain anywhere else . 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 - Social history:: Smoking status: Patient uses tobacco products, denies chronic smoking, but will smoke occasionally. - Ebola Screening: : Patient denies travel to an Ebola-affected area in the 21 days before illness onset. ROS: 21:29 Eyes: Negative for injury, pain, redness, and discharge, ENT: Negative for injury, jr8 pain, and discharge, Neck: Negative for injury, pain, and swelling, Cardiovascular: Negative for chest pain, palpitations, and edema, Respiratory: Negative for shortness of breath, cough, wheezing, and pleuritic chest pain, Abdomen/GI: Negative for abdominal pain, nausea, vomiting, diarrhea, and constipation, Back: Negative for injury and pain, Skin: Negative for injury, rash, and discoloration, Neuro: Negative for headache, weakness, numbness, tingling, and seizure. 21:29 MS/extremity: Positive for pain, tenderness, of the right and left ankle. Exam: 21:29 Eyes: Pupils equal round and reactive to light, extra-ocular motions intact. Lids and jr8 lashes normal. Conjunctiva and sclera are non-icteric and not injected. Cornea within normal limits. Periorbital areas with no swelling, redness, or edema. ENT: Nares patent. No nasal discharge, no septal abnormalities noted. Tympanic membranes are normal and external auditory canals are clear. Oropharynx with no redness, swelling, or masses, exudates, or evidence of obstruction, uvula midline. Mucous membranes moist. Neck: Trachea midline, no thyromegaly or masses palpated, and no cervical lymphadenopathy. Supple, full range of motion without nuchal rigidity, or vertebral point tenderness. No Meningismus. Chest/axilla: Normal chest wall appearance and motion. Nontender with no deformity. No lesions are appreciated. Cardiovascular: Regular rate and rhythm with a normal S1 and S2. No gallops, murmurs, or rubs. Normal PMI, no JVD. No pulse deficits. Respiratory: Lungs have equal breath sounds bilaterally, clear to auscultation and percussion. No rales, rhonchi or wheezes noted. No increased work of breathing, no retractions or nasal flaring. Abdomen/GI: Soft, non-tender, with normal bowel sounds. No distension or tympany. No guarding or rebound. No evidence of tenderness throughout. Back: No spinal tenderness. No costovertebral tenderness. Full range of motion. Skin: Warm, dry with normal turgor. Normal color with no rashes, no lesions, and no evidence of cellulitis. Neuro: Awake and alert, GCS 15, oriented to person, place, time, and situation. Cranial nerves II-XII grossly intact. Motor strength 5/5 in all extremities. Sensory grossly intact. Cerebellar exam normal. Normal gait. 21:29 Musculoskeletal/extremity: Extremities: grossly normal except: noted in the right ankle: pain, tenderness, noted in the left ankle: pain, tenderness, Mild bruising to left mid tibia without point tenderness , ROM: intact in all extremities, full active range of motion, full passive range of motion, Circulation is intact in all extremities. Sensation intact. Vital Signs: 21:03 BP 118 / 82; Pulse 83; Resp 18; Temp 98.0; Pulse Ox 96% on R/A; aj1 22:00 BP 130 / 86; Pulse 77; Resp 16; Pulse Ox 95% on R/A; jb4 MDM: 20:58 Patient medically screened. jr8 22:00 Data reviewed: vital signs, nurses notes, radiologic studies, plain films, and as a jr8 result, I will discharge patient. Data interpreted: Pulse oximetry: on room air is 96 %. Interpretation: normal. Counseling: I had a detailed discussion with the patient and/or guardian regarding: the historical points, exam findings, and any diagnostic results supporting the discharge/admit diagnosis, radiology results, the need for outpatient follow up, a orthopedic surgeon, to return to the emergency department if symptoms worsen or persist or if there are any questions or concerns that arise at home. 11/05 21:17 Order name: XRAY Ankle LEFT 3 view jr8 11/05 21:17 Order name: XRAY Ankle RIGHT 3 view jr8 Administered Medications: 21:25 Drug: [place] (7.5 mg-325 mg) 1 tabs Route: PO; jb4 22:28 Follow up: Response: No adverse reaction; Pain is decreased jb4 Disposition: 22:30 Co-signature as Attending Physician, Juwan Dyer MD. pkl Disposition: 11/05/18 22:01 Discharged to Home. Impression: Pain in right ankle and joints of right foot, Pain in left ankle and joints of left foot. - Condition is Stable. - Discharge Instructions: Ankle Sprain, Contusion. - Prescriptions for Tylenol- Codeine #3 300-30 mg Oral Tablet - take 2 tablets by ORAL route every 6 hours As needed; 12 tablet. - Medication Reconciliation Form, Thank You Letter, Antibiotic Education, Prescription Opioid Use form. - Follow up: Private Physician; When: 1 week; Reason: Recheck today's complaints, Continuance of care, Re-evaluation by your physician. - Problem is new. - Symptoms have improved. Signatures: Dispatcher [employer] Gaviota Desai RN RN aj1 Juwan Dyer MD MD pkl Roszak, Josh, PA PA jr8 Sunny Waller, RN RN jb4 Corrections: (The following items were deleted from the chart) 22:28 22:01 11/05/2018 22:01 Discharged to Home. Impression: Pain in right ankle and joints jb4 of right foot; Pain in left ankle and joints of left foot. Condition is Stable. Forms are Medication Reconciliation Form, Thank You Letter, Antibiotic Education, Prescription Opioid Use. Follow up: Private Physician; When: 1 week; Reason: Recheck today's complaints, Continuance of care, Re-evaluation by your physician. Problem is new. Symptoms have improved. jr8
[2018-11-05 22:55] VITALS: TEMP 98
[2018-11-05 22:56] VITALS: BP 130/86; O2SAT 95
--- NOTE | 2018-11-06 11:22 | RAD REPORT ---
EXAM DESCRIPTION: RAD - Ankle Right 3 View - 11/05/2018 9:43 pm CLINICAL HISTORY: PAIN Trauma, fall COMPARISON: Ankle Right 3 View dated 05/19/2015 FINDINGS: Tibiotalar joint fusion is noted. Bony remodeling of the distal fibula also seen, chronic. No acute fracture or dislocation right ankle suspected. Small calcaneal spurs.
--- NOTE | 2018-11-06 11:23 | RAD REPORT ---
EXAM DESCRIPTION: RAD - Ankle Left 3 View - 11/05/2018 9:43 pm CLINICAL HISTORY: PAIN Fall, pain COMPARISON: No comparisons FINDINGS: No acute fracture or dislocation of the left ankle is seen. A large plantar calcaneal spur is seen.
== END 2018-11-05 22:28 | disposition home or self-care (01) ==
LOC: ER 20:35
DX: M25.571 Pain in right ankle and joints of right foot (principal); M25.572 Pain in left ankle and joints of left foot; W19.XXXA Unspecified fall, initial encounter; J44.9 Chronic obstructive pulmonary disease, unspecified; E11.9 Type 2 diabetes mellitus without complications; F31.9 Bipolar disorder, unspecified; F17.210 Nicotine dependence, cigarettes, uncomplicated; Z79.899 Other long term (current) drug therapy; Z85.3 Personal history of malignant neoplasm of breast
CPT/HCPCS: 99284

== ENCOUNTER 2018-11-25 20:28 | Emergency (ER) | payer OTHER ==
--- OUTSIDE RECORDS SUMMARY | 2018-11-25 20:31 | XMS REPORT | Clinical Summary ---
:1965 Author Organization [facility] Address [address] [place] [address] Care Team Providers Name Role Phone Unavailable [...] Not on file Results Not on fileafter 11/24/2017 Insurance Payer Benefit Plan / Group Subscriber ID Type Phone Address MEDICARE MEDICARE A B xxxxxxxxxx Medicare MEDICAID MEDICAID [facility] xxxxxxxxx Medicaid Advance Directives For more information, please contact:[place] [phone] [facility] [place], [place] [phone] Code Status Date Activated Date Inactivated Comments Full Code 04/22/2016 12:20 PM 04/29/2016 5:47 PM This code status was determined by: Patient
--- OUTSIDE RECORDS SUMMARY | 2018-11-25 20:31 | XMS REPORT ---
:1965 Author Organization [facility] Address [address] [place] [address] Dr. Baker [address] [place] [id number] Care Team Providers Name Role Phone MARKO [...] send to the Main Lab for Analysis. [id number] 08:15:00 Test Item Value Reference Range Comments [place] (test code=LI) 0.44 mmol/L 0.6-1.2 POC Glucose, [id number] 05:37:00 Test Item Value Reference Range Comments POC Glucose (test 134 mg/dL 70-115 If you consider your patient code=POCGLUC) critically ill, the Moira Accu-Chek InformII metershould not be used for Glucose determinations.Draw a venous Glucose and send to the Main Lab for Analysis. POC Glucose, [id number] 07:28:00 Test Item Value Reference Range Comments POC Glucose (test 128 mg/dL 70-115 If you consider your patient code=POCGLUC) critically ill, the Moira Accu-Chek InformII metershould not be used for Glucose determinations.Draw a venous Glucose and send to the Main Lab for Analysis. POC Glucose, [id number] 20:18:00 Test Item Value Reference Range Comments POC Glucose (test 121 mg/dL 70-115 If you consider your patient code=POCGLUC) critically ill, the Moira Accu-Chek InformII metershould not be used for Glucose determinations.Draw a venous Glucose and send to the Main Lab for Analysis. BHCG, Serum, [id number] 22:36:00 Test Item Value Reference Range Comments Preg Qual [Se] (test code=BSHCG) Negative Negative POC Glucose, [id number] 15:14:00 Test Item Value Reference Range Comments POC Glucose (test 117 mg/dL 70-115 If you consider your patient code=POCGLUC) critically ill, the Moira Accu-Chek InformII metershould not be used for Glucose determinations.Draw a venous Glucose and send to the Main Lab for Analysis.
--- NOTE | 2018-11-25 21:20 | EDPHYS ---
Physician Documentation [facility] Name: Wendi Norton Age: 53 yrs Sex: Female : 1965 Arrival Date: 11/25/2018 Time: 20:30 Bed 10 Private MD: ED Physician Cornelius Vyas HPI: 11/25 21:22 This 53 yrs old Female presents to ER via Ambulatory with complaints of Ankle kb Injury. 21:22 The patient presents with pain, that is chronic. The complaints affect the right ankle. kb Onset: The symptoms/episode began/occurred 2 month(s) ago. Context: The problem was sustained at home, resulted from The patient can fully bear weight on the affected extremity. the patient is able to ambulate. Associated signs and symptoms: The patient has no apparent associated signs or symptoms. Modifying factors: The symptoms are alleviated by nothing, the symptoms are aggravated by weight bearing. Severity of symptoms: At their worst the symptoms were moderate, in the emergency department the symptoms are unchanged. The patient has experienced similar episodes in the past, chronically. The patient has not recently seen a physician. 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-menopause jl3 Historical: - Allergies: 20:38 NKDA; ak1 - Home Meds: 20:38 quetiapine 300 mg Oral tab 2 tabs nightly [Active]; clonazepam 2 mg Oral tab 1 tab 2 ak1 times per day [Active]; Adderall XR Oral 1 cap once daily [Active]; fluoxetine 40 mg Oral cap 1 cap once daily [Active]; lithium carbonate 300 mg Oral TbER 1 tab 2 times per day [Active]; Harvoni 90-400 mg oral tab 1 tab once daily [Active]; - PMHx: 20:38 Asthma; Bipolar disorder; breast cancer- in remission; COPD; Depression; Diabetes - ak1 NIDDM; Diverticulitis; PTSD; Hepatitis; - PSHx: 20:38 ; ak1 - Immunization history:: Adult Immunizations unknown. - Social history:: Smoking status: Patient uses tobacco products, denies chronic smoking, but will smoke occasionally. - Ebola Screening: : No symptoms or risks identified at this time. ROS: 21:20 Constitutional: Negative for fever, chills, and weight loss, Cardiovascular: Negative kb for chest pain, palpitations, and edema, Respiratory: Negative for shortness of breath, cough, wheezing, and pleuritic chest pain, Abdomen/GI: Negative for abdominal pain, nausea, vomiting, diarrhea, and constipation, Skin: Negative for injury, rash, and discoloration, Neuro: Negative for headache, weakness, numbness, tingling, and seizure. 21:20 MS/extremity: Positive for pain, of the right forearm and anterior aspect of right ankle. Exam: 21:21 Constitutional: This is a well developed, well nourished patient who is awake, alert, kb and in no acute distress. Head/Face: Normocephalic, atraumatic. Neck: Trachea midline, no thyromegaly or masses palpated, and no cervical lymphadenopathy. Supple, full range of motion without nuchal rigidity, or vertebral point tenderness. No Meningismus. Chest/axilla: Normal chest wall appearance and motion. Nontender with no deformity. No lesions are appreciated. Cardiovascular: Regular rate and rhythm with a normal S1 and S2. No gallops, murmurs, or rubs. Normal PMI, no JVD. No pulse deficits. Respiratory: Lungs have equal breath sounds bilaterally, clear to auscultation and percussion. No rales, rhonchi or wheezes noted. No increased work of breathing, no retractions or nasal flaring. Abdomen/GI: Soft, non-tender, with normal bowel sounds. No distension or tympany. No guarding or rebound. No evidence of tenderness throughout. Skin: Warm, dry with normal turgor. Normal color with no rashes, no lesions, and no evidence of cellulitis. MS/ Extremity: Pulses equal, no cyanosis. Neurovascular intact. Full, normal range of motion. Neuro: Awake and alert, GCS 15, oriented to person, place, time, and situation. Cranial nerves II-XII grossly intact. Motor strength 5/5 in all extremities. Sensory grossly intact. Cerebellar exam normal. Normal gait. Vital Signs: 20:36 BP 102 / 67; Pulse 92; Resp 16; Temp 98; Pulse Ox 96% on R/A; Weight 90.72 kg (R); ak1 Height 5 ft. 4 in. (162.56 cm); Pain 9/10; 21:35 BP 108 / 70; Pulse 98; Resp 18; Pulse Ox 96% ; Pain 5/10; jl3 20:36 Body Mass Index 34.33 (90.72 kg, 162.56 cm) ak1 MDM: 21:02 Patient medically screened. kb 21:17 Data reviewed: vital signs, nurses notes. Data interpreted: Pulse oximetry: on room air kb is 96 %. Interpretation: normal. Counseling: I had a detailed discussion with the patient and/or guardian regarding: the historical points, exam findings, and any diagnostic results supporting the discharge/admit diagnosis, the need for outpatient follow up, a family practitioner, a painting contractor, to return to the emergency department if symptoms worsen or persist or if there are any questions or concerns that arise at home. Administered Medications: 21:30 Drug: TORadol 60 mg Route: IM; Site: right gluteus; jl3 22:00 Follow up: Response: No adverse reaction jl3 Disposition: 11/25/18 21:19 Discharged to Home. Impression: Pain in right ankle and joints of right foot - chronic, Pain in right forearm. - Condition is Stable. - Discharge Instructions: Chronic Pain, Musculoskeletal Pain. - Medication Reconciliation Form, Thank You Letter, Antibiotic Education, Prescription Opioid Use form. - Follow up: Emergency Department; When: As needed; Reason: Worsening of condition. Follow up: Private Physician; When: 2 - 3 days; Reason: Recheck today's complaints, Continuance of care, Re-evaluation by your physician. Addendum: 12/03/2018 03:22 Co-signature as Attending Physician, Cornelius Vyas MD. g s Signatures: Anisa Noriega, ASIA-Primitivo BETANCOURT-Salvador Cintron RN RN jl3 Mayra Paredes RN RN ak1 Cornelius Vyas MD MD Corrections: (The following items were deleted from the chart) 11/25 22:02 21:19 11/25/2018 21:19 Discharged to Home. Impression: Pain in right ankle and joints jl3 of right foot - chronic; Pain in right forearm. Condition is Stable. Forms are Medication Reconciliation Form, Thank You Letter, Antibiotic Education, Prescription Opioid Use. Follow up: Emergency Department; When: As needed; Reason: Worsening of condition. Follow up: Private Physician; When: 2 - 3 days; Reason: Recheck today's complaints, Continuance of care, Re-evaluation by your physician. kb
--- NOTE | 2018-11-25 21:20 | ER ---
Nurse's Notes [facility] Name: Wendi Norton Age: 53 yrs Sex: Female : 1965 Arrival Date: 11/25/2018 Time: 20:30 Bed 10 Private MD: Diagnosis: Pain in right ankle and joints of right foot-chronic;Pain in right forearm Presentation: 11/25 20:36 Presenting complaint: Patient states: right ankle pain X1 week, bilateral hand pain X 6 ak1 months. Transition of care: patient was not received from another setting of care. Onset of symptoms is unknown. Risk Assessment: Do you want to hurt yourself or someone else? Patient reports no desire to harm self or others. Initial Sepsis Screen: Does the patient meet any 2 criteria? No. Patient's initial sepsis screen is negative. Does the patient have a suspected source of infection? No. Patient's initial sepsis screen is negative. Care prior to arrival: None. 20:36 Method Of Arrival: Ambulatory ak1 20:36 Acuity: RAUL 5 ak1 Triage Assessment: 21:36 General: Appears distressed, uncomfortable, obese, unkempt, Behavior is anxious. 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 jl3 Historical: - Allergies: 20:38 NKDA; ak1 - Home Meds: 20:38 quetiapine 300 mg Oral tab 2 tabs nightly [Active]; clonazepam 2 mg Oral tab 1 tab 2 ak1 times per day [Active]; Adderall XR Oral 1 cap once daily [Active]; fluoxetine 40 mg Oral cap 1 cap once daily [Active]; lithium carbonate 300 mg Oral TbER 1 tab 2 times per day [Active]; Harvoni 90-400 mg oral tab 1 tab once daily [Active]; - PMHx: 20:38 Asthma; Bipolar disorder; breast cancer- in remission; COPD; Depression; Diabetes - ak1 NIDDM; Diverticulitis; PTSD; Hepatitis; - PSHx: 20:38 ; ak1 - Immunization history:: Adult Immunizations unknown. - Social history:: Smoking status: Patient uses tobacco products, denies chronic smoking, but will smoke occasionally. - Ebola Screening: : No symptoms or risks identified at this time. Screenin:36 Abuse screen: none. Nutritional screening: No deficits noted. Tuberculosis screening: jl3 No symptoms or risk factors identified. Fall Risk None identified. Assessment: 20:54 General: Pt states pain 8/10 in R. ankle and lower leg, hX ankle sx "about 8 months jl3 ago" but area is well-healed. Pt also c/o pain 8/10 bilateral hands r/t moving a bed without help. 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 Pain: Complains of pain in right foot and right heel. Neuro: No deficits noted. Cardiovascular: No deficits noted. Respiratory: No deficits noted. GI: No deficits noted. : No deficits noted. EENT: No deficits noted. Derm: Reports Hx breast CA. L. breast. Currently on radiation and meds. Musculoskeletal: Reports pain in right hand, left hand, right foot and right heel. Vital Signs: 20:36 BP 102 / 67; Pulse 92; Resp 16; Temp 98; Pulse Ox 96% on R/A; Weight 90.72 kg (R); ak1 Height 5 ft. 4 in. (162.56 cm); Pain 9/10; 21:35 BP 108 / 70; Pulse 98; Resp 18; Pulse Ox 96% ; Pain 5/10; jl3 20:36 Body Mass Index 34.33 (90.72 kg, 162.56 cm) ak1 ED Course: 20:30 Patient arrived in ED. am2 20:36 Triage completed. ak1 20:36 Arm band placed on Patient placed in an exam room, on a stretcher, Patient notified of ak1 wait time. 20:48 Salvador Zayas RN is Primary Nurse. jl3 21:02 [facility]C [facility] kb 21:02 Cornelius Vyas MD is Attending Physician. kb 21:36 No provider procedures requiring assistance completed. jl3 21:37 Patient has correct armband on for positive identification. jl3 21:37 Patient did not have IV access during this emergency room visit. jl3 Administered Medications: 21:30 Drug: TORadol 60 mg Route: IM; Site: right gluteus; jl3 22:00 Follow up: Response: No adverse reaction jl3 Outcome: 21:19 Discharge ordered by . kb 21:36 Discharged to home ambulatory. jl3 21:36 Condition: stable 22:00 Discharge instructions given to patient, friend, Pt ambulatory, but placed in WC and jl3 taken to personal vehicle, helped into vehicle, left with 2 friends. 22:02 Patient left the ED. jl3 Signatures: Anisa Noriega, VANDNAA BETANCOURT-Salvador Cintron, RN RN jl3 Mayra Paredes RN RN ak1 Kenzie Nickerson am2
[2018-11-25] MEDS ORDERED: KETOROLAC 30 MG/ML INJ ONE (21:33)
[2018-11-25 22:20] VITALS: BP 108/70; O2SAT 96
[2018-11-25 22:22] VITALS: TEMP 98
== END 2018-11-25 22:02 | disposition home or self-care (01) ==
LOC: ER 20:28
DX: M79.631 Pain in right forearm (principal); E11.9 Type 2 diabetes mellitus without complications; F31.9 Bipolar disorder, unspecified; F32.9 Major depressive disorder, single episode, unspecified; F43.10 Post-traumatic stress disorder, unspecified; J44.9 Chronic obstructive pulmonary disease, unspecified; Z72.0 Tobacco use; Z85.3 Personal history of malignant neoplasm of breast

== ENCOUNTER 2018-12-21 19:46 | Emergency (ER) | payer OTHER ==
--- OUTSIDE RECORDS SUMMARY | 2018-12-21 19:48 | XMS REPORT ---
:1965 Author Organization [facility] Address [address] [place] [address] Dr. Baker [address] [place] [id number] Care Team Providers Name Role Phone MARKO [...] send to the Main Lab for Analysis. [id number] 08:15:00 Test Item Value Reference Range Comments [place] (test code=LI) 0.44 mmol/L 0.6-1.2 POC Glucose, [id number] 05:37:00 Test Item Value Reference Range Comments POC Glucose (test 134 mg/dL 70-115 If you consider your patient code=POCGLUC) critically ill, the Moira Accu-Chek InformII metershould not be used for Glucose determinations.Draw a venous Glucose and send to the Main Lab for Analysis. POC Glucose, [id number] 07:28:00 Test Item Value Reference Range Comments POC Glucose (test 128 mg/dL 70-115 If you consider your patient code=POCGLUC) critically ill, the Moira Accu-Chek InformII metershould not be used for Glucose determinations.Draw a venous Glucose and send to the Main Lab for Analysis. POC Glucose, [id number] 20:18:00 Test Item Value Reference Range Comments POC Glucose (test 121 mg/dL 70-115 If you consider your patient code=POCGLUC) critically ill, the Moira Accu-Chek InformII metershould not be used for Glucose determinations.Draw a venous Glucose and send to the Main Lab for Analysis. BHCG, Serum, [id number] 22:36:00 Test Item Value Reference Range Comments Preg Qual [Se] (test code=BSHCG) Negative Negative POC Glucose, [id number] 15:14:00 Test Item Value Reference Range Comments POC Glucose (test 117 mg/dL 70-115 If you consider your patient code=POCGLUC) critically ill, the Moira Accu-Chek InformII metershould not be used for Glucose determinations.Draw a venous Glucose and send to the Main Lab for Analysis.
--- OUTSIDE RECORDS SUMMARY | 2018-12-21 19:48 | XMS REPORT | Clinical Summary ---
:1965 Author Organization [facility] Address [address] [place] [address] Care Team Providers Name Role Phone Unavailable [...] Not on file Results Not on fileafter 12/20/2017 Insurance Payer Benefit Plan / Group Subscriber ID Type Phone Address MEDICARE MEDICARE A B xxxxxxxxxx Medicare MEDICAID MEDICAID [facility] xxxxxxxxx Medicaid Advance Directives For more information, please contact:[place] [phone] [facility] [place], [place] [phone] Code Status Date Activated Date Inactivated Comments Full Code 04/22/2016 12:20 PM 04/29/2016 5:47 PM This code status was determined by: Patient
[2018-12-21 21:13] LABS: Protime INR 1.12
[2018-12-21 21:14] LABS: Absolute Lymphocytes (CBC) 1.3 K/uL (0.7-4.9); Absolute Monocytes 0.3 K/uL (0.1-1.3); Absolute Neutrophil 2.3 K/uL (1.8-8.0); Basophils % 1.1 % (0-1.3); Eosinophils % 2.3 % (0-4.4); Hematocrit 34.1 % (36.0-45.0); Lymphocytes % 31.4 % (15.3-44.8); MPV 9.2 fL (7.6-11.3); Monocytes % 8.4 % (3.3-12.3); RBC Red Blood Cell Count 3.88 M/uL (3.86-4.86)
[2018-12-21 21:20] LABS: Urine Blood NEGATIVE (NEG); Urine Glucose NEGATIVE (NEG); Urine Protein NEGATIVE (NEG); Urine Specific Gravity 1.025 (1.005-1.030); Urine pH 6.5 (5.0-7.0)
[2018-12-21 21:38] LABS: ALT/SGPT 23 U/L (12-78); AST/SGOT 22 U/L (15-37); Albumin 3.3 g/dL (3.4-5.0); Alkaline Phosphatase 170 U/L (45-117); BUN Blood Urea Nitrogen 17 mg/dL (7-18); Bicarbonate 28 mmol/L (21-32); Bilirubin Direct 0.3 mg/dL (0-0.2); Bilirubin Total 0.7 mg/dL (0.2-1.0); Glucose Level 148 mg/dL (74-106); NT PRO-BNP 8 pg/mL (<125); Potassium 3.8 mmol/L (3.5-5.1); Sodium Level 143 mmol/L (136-145); Troponin (Emerg Dept Use Only) < 0.02 ng/mL (0.0-0.045)
[2018-12-21 21:47] LABS: Barbiturates NEGATIVE (NEGATIVE); Benzodiazepines POSITIVE (NEGATIVE); Cocaine NEGATIVE (NEGATIVE); METHAMPHETAM POSITIVE (NEGATIVE); Methadone NEGATIVE (NEGATIVE); Opiates NEGATIVE (NEGATIVE); Phencyclidine NEGATIVE (NEGATIVE); THC Cannibis NEGATIVE (NEGATIVE)
[2018-12-21 21:49] LABS: Platelet Estimate DECR; Urine White Blood Cell Casts OK
[2018-12-21 21:50] LABS: Blood Morphology Comment NOTED (NOT SEEN)
--- NOTE | 2018-12-21 22:18 | EDPHYS ---
Physician Documentation [facility] Name: Wendi Norton Age: 53 yrs Sex: Female : 1965 Arrival Date: 12/21/2018 Time: 19:51 Bed 5 Private MD: ED Physician Donavan Hawley HPI: 12/21 21:10 This 53 yrs old Female presents to ER via Ambulatory with complaints of Chest shefali Pain. 21:10 The patient or guardian reports chest pain that is located primarily in the anterior shefali chest wall. Onset: just prior to arrival, after choking on water. The pain does not radiate. The chest pain is described as dull. Severity of pain: At its worst the pain was mild in the emergency department the pain is unchanged. 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 - Social history:: Smoking status: Patient uses tobacco products, smokes one-half pack cigarettes per day. - Ebola Screening: : Patient denies travel to an Ebola-affected area in the 21 days before illness onset. ROS: 21:13 Constitutional: Negative for fever, chills, and weight loss, Eyes: Negative for injury, shefali pain, redness, and discharge, ENT: Negative for injury, pain, and discharge, Neck: Negative for injury, pain, and swelling, Cardiovascular: Negative for chest pain, palpitations, and edema, Respiratory: Negative for shortness of breath, cough, wheezing, and pleuritic chest pain, Abdomen/GI: Negative for abdominal pain, nausea, vomiting, diarrhea, and constipation, Back: Negative for injury and pain, : Negative for injury, bleeding, discharge, and swelling, Skin: Negative for injury, rash, and discoloration, Neuro: Negative for headache, weakness, numbness, tingling, and seizure, Psych: Negative for depression, anxiety, suicide ideation, homicidal ideation, and hallucinations, Allergy/Immunology: Negative for hives, rash, and allergies, Endocrine: Negative for neck swelling, polydipsia, polyuria, polyphagia, and marked weight changes, Hematologic/Lymphatic: Negative for swollen nodes, abnormal bleeding, and unusual bruising. 21:13 MS/extremity: Positive for pain, of the right arm, left arm, right leg and left leg. Exam: 21:13 Constitutional: This is a well developed, well nourished patient who is awake, alert, shefali and in no acute distress. Head/Face: Normocephalic, atraumatic. Eyes: Pupils equal round and reactive to light, extra-ocular motions intact. Lids and lashes normal. Conjunctiva and sclera are non-icteric and not injected. Cornea within normal limits. Periorbital areas with no swelling, redness, or edema. ENT: Nares patent. No nasal discharge, no septal abnormalities noted. Tympanic membranes are normal and external auditory canals are clear. Oropharynx with no redness, swelling, or masses, exudates, or evidence of obstruction, uvula midline. Mucous membranes moist. Neck: Trachea midline, no thyromegaly or masses palpated, and no cervical lymphadenopathy. Supple, full range of motion without nuchal rigidity, or vertebral point tenderness. No Meningismus. Chest/axilla: Normal chest wall appearance and motion. Nontender with no deformity. No lesions are appreciated. Cardiovascular: Regular rate and rhythm with a normal S1 and S2. No gallops, murmurs, or rubs. Normal PMI, no JVD. No pulse deficits. Respiratory: Lungs have equal breath sounds bilaterally, clear to auscultation and percussion. No rales, rhonchi or wheezes noted. No increased work of breathing, no retractions or nasal flaring. Abdomen/GI: Soft, non-tender, with normal bowel sounds. No distension or tympany. No guarding or rebound. No evidence of tenderness throughout. Back: No spinal tenderness. No costovertebral tenderness. Full range of motion. Skin: Warm, dry with normal turgor. Normal color with no rashes, no lesions, and no evidence of cellulitis. MS/ Extremity: Pulses equal, no cyanosis. Neurovascular intact. Full, normal range of motion. Neuro: Awake and alert, GCS 15, oriented to person, place, time, and situation. Cranial nerves II-XII grossly intact. Motor strength 5/5 in all extremities. Sensory grossly intact. Cerebellar exam normal. Normal gait. Psych: Awake, alert, with orientation to person, place and time. Behavior, mood, and affect are within normal limits. 21:13 Musculoskeletal/extremity: DVT Exam: No signs of deep vein thrombosis. no pain, no swelling, no tenderness, negative Homans' sign noted on exam, no appreciated bluish discoloration, no erythema, no increased warmth. Vital Signs: 19:59 BP 112 / 61; Pulse 94; Resp 18; Temp 97.9; Pulse Ox 97% on R/A; Weight 60.78 kg (R); aj1 Height 5 ft. 4 in. (162.56 cm) (R); Pain 8/10; 20:38 BP 131 / 74; Pulse 96; Resp 17; Pulse Ox 98% on R/A; lp1 21:30 BP 112 / 61; Pulse 91; Resp 20; Pulse Ox 96% ; lp1 22:30 BP 128 / 94; Pulse 91; Resp 19; Pulse Ox 95% on R/A; lp1 19:59 Body Mass Index 23.00 (60.78 kg, 162.56 cm) aj1 MDM: 20:38 Patient medically screened. [facility] 21:14 Data reviewed: vital signs, nurses notes, lab test result(s), EKG, radiologic studies, shefali plain films. 12/21 20:48 Order name: Basic Metabolic Panel [facility] 12/21 20:48 Order name: CBC with Diff; Complete Time: 21:55 [facility] 12/21 20:48 Order name: LFT's; Complete Time: 21:55 [facility] 12/21 20:48 Order name: Magnesium; Complete Time: 21:55 [facility] 12/21 20:48 Order name: NT PRO-BNP; Complete Time: 21:55 [facility] 12/21 20:48 Order name: PT-INR; Complete Time: 21:55 [facility] 12/21 20:48 Order name: Troponin (emerg Dept Use Only); Complete Time: 21:55 [facility] 12/21 20:49 Order name: Basic Metabolic Panel; Complete Time: 21:55 [facility] 12/21 21:10 Order name: Acetaminophen; Complete Time: 22:17 [facility] 12/21 21:10 Order name: ETOH Level; Complete Time: 22:17 [facility] 12/21 21:10 Order name: Ptt, Activated; Complete Time: 21:55 [facility] 12/21 21:10 Order name: Salicylate; Complete Time: 22:17 [facility] 12/21 21:10 Order name: Urine Drug Screen; Complete Time: 21:55 [facility] 12/21 21:12 Order name: Urine Dipstick--Ancillary (enter results); Complete Time: 21:55 12/21 20:48 Order name: XRAY Chest (1 view) [facility] 12/21 20:48 Order name: EKG; Complete Time: 20:49 [facility] 12/21 20:48 Order name: Cardiac monitoring; Complete Time: 21:05 [facility] 12/21 20:48 Order name: EKG - Nurse/Tech; Complete Time: 21:05 [facility] 12/21 20:48 Order name: IV Saline Lock; Complete Time: 21:05 [facility] 12/21 20:48 Order name: Labs collected and sent; Complete Time: 21:05 [facility] 12/21 20:48 Order name: O2 Per Protocol; Complete Time: 21:05 [facility] 12/21 20:48 Order name: O2 Sat Monitoring; Complete Time: 21:05 [facility] 12/21 21:10 Order name: Urine Dipstick-Ancillary (obtain specimen); Complete Time: 21:32 [facility] 12/21 21:50 Order name: CBC Smear Scan; Complete Time: 21:55 [facility] 12/21 21:56 Order name: [place] [facility] Administered Medications: No medications were administered Disposition: 12/21/18 22:17 Discharged to Home. Impression: Malaise and fatigue, Bipolar disorder, Adverse effect of amphetamines. - Condition is Stable. - Discharge Instructions: Bipolar Disorder, Weakness, Stimulant Use Disorder-Methamphetamines, Weakness, [id number]. - Medication Reconciliation Form, Thank You Letter, Antibiotic Education, Prescription Opioid Use form. - Follow up: Private Physician; When: 2 - 3 days; Reason: Recheck today's complaints, Continuance of care, Re-evaluation by your physician. - Problem is new. - Symptoms have improved. Signatures: Dispatcher [employer] Gaviota Desai, RN RN aj1 Donavan Hawley MD MD cha Pena, Laura, RN RN lp1 Corrections: (The following items were deleted from the chart) 22:31 22:17 12/21/2018 22:17 Discharged to Home. Impression: Malaise and fatigue; Bipolar lp1 disorder; Adverse effect of amphetamines. Condition is Stable. Discharge Instructions: Bipolar Disorder, Weakness, Weakness, [id number], Stimulant Use Disorder-Methamphetamines. Forms are Medication Reconciliation Form, Thank You Letter, Antibiotic Education, Prescription Opioid Use. Follow up: Private Physician; When: 2 - 3 days; Reason: Recheck today's complaints, Continuance of care, Re-evaluation by your physician. Problem is new. Symptoms have improved. shefali
--- NOTE | 2018-12-21 22:18 | ER ---
Nurse's Notes [facility] Name: Wendi Norton Age: 53 yrs Sex: Female : 1965 Arrival Date: 12/21/2018 Time: 19:51 Bed 5 Private MD: Diagnosis: Malaise and fatigue;Bipolar disorder;Adverse effect of amphetamines Presentation: 12/21 19:52 Presenting complaint: Patient states: "I was coughing, I choked on my water and I threw aj1 up and it felt like something was jabbing up here (patient points to her chest), and it went down my right arm, and I have an ankle that has 28 stitches and I need another boot or some pain medicine, even Tylenol #3s work. I'm out of luck for pain meds until I get a PCP." Patient states that her chest pain has calmed down some now. Patient also reports that she is under a large amount of stress right now because she is from her and she is not getting along with her mother. Transition of care: patient was not received from another setting of care. Onset of symptoms was December 21, 2018. Risk Assessment: Do you want to hurt yourself or someone else? Patient reports no desire to harm self or others. Initial Sepsis Screen: Does the patient meet any 2 criteria? No. Patient's initial sepsis screen is negative. Does the patient have a suspected source of infection? No. Patient's initial sepsis screen is negative. Care prior to arrival: None. 19:52 Method Of Arrival: Ambulatory aj1 19:52 Acuity: RAUL 3 aj1 Triage Assessment: 19:59 General: Appears in no apparent distress. comfortable, Behavior is calm, cooperative, aj1 appropriate for age. Pain: Complains of pain in chest Pain currently is 8 out of 10 on a pain scale. Quality of pain is described as aching, Pain began 3 hours ago. Neuro: Level of Consciousness is awake, alert, obeys commands, Oriented to person, place, time, situation. Cardiovascular: Reports chest pain, Patient's skin is warm and dry. Respiratory: Airway is patent Respiratory effort is even, unlabored, Respiratory pattern is regular, symmetrical. 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 - Post-menopause aj1 Historical: - Allergies: 19:59 NKDA; aj1 - Home Meds: 19:59 Adderall XR Oral 1 cap once daily [Active]; clonazepam 2 mg Oral tab 1 tab 2 times per aj1 day [Active]; fluoxetine 40 mg Oral cap 1 cap once daily [Active]; Harvoni 90-400 mg Oral tab 1 tab once daily [Active]; lithium carbonate 300 mg Oral TbER 1 tab 2 times per day [Active]; quetiapine 300 mg Oral tab 2 tabs nightly [Active]; - PMHx: 19:59 Asthma; Bipolar disorder; breast cancer- in remission; COPD; Depression; Diabetes - aj1 NIDDM; Diverticulitis; Hepatitis; PTSD; - Immunization history:: Flu vaccine is not up to date. - Social history:: Smoking status: Patient uses tobacco products, smokes one-half pack cigarettes per day. - Ebola Screening: : Patient denies travel to an Ebola-affected area in the 21 days before illness onset. Screenin:40 Abuse screen: Denies threats or abuse. Denies injuries from another. Nutritional lp1 screening: No deficits noted. Tuberculosis screening: No symptoms or risk factors identified. Fall Risk None identified. Assessment: 20:38 General: Appears in no apparent distress. comfortable, Behavior is calm, cooperative. lp1 Pain: Complains of pain in chest, right ankle Pain does not radiate. Pain currently is 5 out of 10 on a pain scale. Quality of pain is described as squeezing. Neuro: Level of Consciousness is awake, alert, obeys commands, Oriented to person, place, situation. Cardiovascular: Patient's skin is warm and dry. Rhythm is sinus rhythm. Respiratory: Respiratory effort is even, unlabored, Breath sounds are clear bilaterally. GI: No signs and/or symptoms were reported involving the gastrointestinal system. : No signs and/or symptoms were reported regarding the genitourinary system. EENT: No signs and/or symptoms were reported regarding the EENT system. Derm: Skin is pink, warm \\T\\ dry. 22:00 Reassessment: Patient appears in no apparent distress at this time. Patient and/or lp1 family updated on plan of care and expected duration. Pain level reassessed. Patient is alert, oriented x 3, equal unlabored respirations, skin warm/dry/pink. Vital Signs: 19:59 BP 112 / 61; Pulse 94; Resp 18; Temp 97.9; Pulse Ox 97% on R/A; Weight 60.78 kg (R); aj1 Height 5 ft. 4 in. (162.56 cm) (R); Pain 8/10; 20:38 BP 131 / 74; Pulse 96; Resp 17; Pulse Ox 98% on R/A; lp1 21:30 BP 112 / 61; Pulse 91; Resp 20; Pulse Ox 96% ; lp1 22:30 BP 128 / 94; Pulse 91; Resp 19; Pulse Ox 95% on R/A; lp1 19:59 Body Mass Index 23.00 (60.78 kg, 162.56 cm) aj1 ED Course: 19:51 Patient arrived in ED. aj1 19:59 Triage completed. aj1 19:59 Arm band placed on Patient placed in waiting room. EKG completed in triage. Results aj1 shown to MD. 20:37 Saige Fischer, RN is Primary Nurse. lp1 20:38 Donavan Hawley MD is Attending Physician. [facility] 20:40 Patient has correct armband on for positive identification. Placed in gown. Bed in low lp1 position. conveyor monitor on. Pulse ox on. NIBP on. 20:40 Patient maintains SpO2 saturation greater than 95% on room air. lp1 21:00 Missed attempt(s): 20 gauge in left antecubital area. Inserted saline lock: 22 gauge in lp1 left wrist, using aseptic technique. Blood collected. 21:22 X-ray completed. Portable x-ray completed in exam room. Patient tolerated procedure ka well. 21:24 XRAY Chest (1 view) In Process Unspecified. EDCT 22:31 No provider procedures requiring assistance completed. IV discontinued, No lp1 redness/swelling at site. Pressure dressing applied. Administered Medications: No medications were administered Outcome: 22:17 Discharge ordered by . [facility] 22:31 Discharged to home ambulatory. lp1 22:31 Condition: good 22:31 Discharge instructions given to patient, Instructed on discharge instructions, follow up and referral plans. Demonstrated understanding of instructions, follow-up care. 22:31 Patient left the ED. lp1 Signatures: Dispatcher [employer] EDMS Gaviota Carlin RN RN aj1 Donavan Hawley MD MD cha Pena, Laura, RN RN lp1 Zhang, Seble ka
[2018-12-22 01:02] VITALS: TEMP 97.9
[2018-12-22 01:06] VITALS: BP 128/94; O2SAT 95
--- NOTE | 2018-12-22 06:59 | RAD REPORT ---
EXAM DESCRIPTION: RAD - Chest Single View - 12/21/2018 9:24 pm CLINICAL HISTORY: Chest pain COMPARISON: August 2017 TECHNIQUE: AP portable chest image was obtained 2121 hours . FINDINGS: Lungs are clear. Portable technique and large body habitus accentuate chest findings. Late ral left base opacification is a common artifact of portable imaging with large body habitus. Heart a nd vasculature are normal. No measurable pleural effusion and no pneumothorax. No acute bony abnormal ity seen. No acute aortic findings suspected. IMPRESSION: No acute cardiopulmonary process. No significant change from 2017.
--- NOTE | 2018-12-22 09:50 | EKG ---
Test Date: 2018-12-21 Test Time: 20:01:25 [place] Set Up Operator: JUAN J MEASUREMENT RESULTS: Intervals: Rate: 95 IL: 126 QRSD: 78 QT: 360 QTc: 452 [place]: P: 33 IL: 126 QRS: 54 T: 41 INTERPRETIVE STATEMENTS: Normal sinus rhythm Normal ECG Compared to ECG 10/26/2017 10:42:05 No significant changes Electronically Signed On 12-22-18 08:34:40 SAFETY SPEC by Karel Greene
--- NOTE | 2018-12-22 09:51 | EKG ---
Test Date: 2018-12-21 Test Time: 20:34:07 Planning Rn: SHY MEASUREMENT RESULTS: Intervals: Rate: 98 ID: [id number] QRSD: 82 QT: 348 QTc: 444 [place]: P: 50 ID: 130 QRS: 70 T: 49 INTERPRETIVE STATEMENTS: Normal sinus rhythm Normal ECG Compared to ECG 12/21/2018 20:01:25 No significant changes Electronically Signed On 12-22-18 09:20:49 HAT CONDITIONER by Karel Greene
== END 2018-12-21 22:31 | disposition home or self-care (01) ==
LOC: ER 19:46
DX: F31.9 Bipolar disorder, unspecified (principal); R53.81 Other malaise; R53.83 Other fatigue; T43.625A Adverse effect of amphetamines, initial encounter; E11.9 Type 2 diabetes mellitus without complications; J44.9 Chronic obstructive pulmonary disease, unspecified; F43.10 Post-traumatic stress disorder, unspecified; F17.210 Nicotine dependence, cigarettes, uncomplicated; Z79.899 Other long term (current) drug therapy
CPT/HCPCS: 36415; 71045; 80048; 80076; 80178; 80307; 80320; 80329; 81003; 83735; 83880; 84484; 85025; 85610; 85730; 93005; 99285

== ENCOUNTER 2019-02-15 19:47 | Emergency (ER) | payer OTHER ==
--- OUTSIDE RECORDS SUMMARY | 2019-02-15 19:50 | XMS REPORT | Clinical Summary ---
:1965 Author Organization [facility] Address [address] [place] [address] Care Team Providers Name Role Phone Unavailable [...] Not on file Results Not on fileafter 02/14/2018 Insurance Payer Benefit Plan / Group Subscriber ID Type Phone Address MEDICARE MEDICARE A B xxxxxxxxxx Medicare MEDICAID MEDICAID [facility] xxxxxxxxx Medicaid Advance Directives For more information, please contact:[place] [id number] [facility] [place], [place] [phone] Code Status Date Activated Date Inactivated Comments Full Code 04/22/2016 12:20 PM 04/29/2016 5:47 PM This code status was determined by: Patient
--- OUTSIDE RECORDS SUMMARY | 2019-02-15 19:50 | XMS REPORT ---
:1965 Author Organization [facility] Address [address] [place] [address] Dr. Baker [address] [place] [id number] Care Team Providers Name Role Phone MARKO [...] send to the Main Lab for Analysis. [id number] 08:15:00 Test Item Value Reference Range Comments Pentress (test code=LI) 0.44 mmol/L 0.6-1.2 POC Glucose, [id number] 05:37:00 Test Item Value Reference Range Comments POC Glucose (test 134 mg/dL 70-115 If you consider your patient code=POCGLUC) critically ill, the [place]ira Accu-Chek InformII metershould not be used for Glucose determinations.Draw a venous Glucose and send to the Main Lab for Analysis. POC Glucose, [id number] 07:28:00 Test Item Value Reference Range Comments POC Glucose (test 128 mg/dL 70-115 If you consider your patient code=POCGLUC) critically ill, the [place] Accu-Chek InformII metershould not be used for Glucose determinations.Draw a venous Glucose and send to the Main Lab for Analysis. POC Glucose, [id number] 20:18:00 Test Item Value Reference Range Comments POC Glucose (test 121 mg/dL 70-115 If you consider your patient code=POCGLUC) critically ill, the [place]ira Accu-Chek InformII metershould not be used for Glucose determinations.Draw a venous Glucose and send to the Main Lab for Analysis. BHCG, Serum, [id number] 22:36:00 Test Item Value Reference Range Comments Preg Qual [Se] (test code=BSHCG) Negative Negative POC Glucose, [id number] 15:14:00 Test Item Value Reference Range Comments POC Glucose (test 117 mg/dL 70-115 If you consider your patient code=POCGLUC) critically ill, the [place] Accu-Chek InformII metershould not be used for Glucose determinations.Draw a venous Glucose and send to the Main Lab for Analysis.
--- NOTE | 2019-02-15 20:33 | EDPHYS ---
Physician Documentation [facility] Name: Wendi Norton Age: 53 yrs Sex: Female : 1965 Arrival Date: 02/15/2019 Time: 19:50 Bed 12 Private MD: Donavan Verduzco HPI: 02/16 03:17 This 53 yrs old Female presents to ER via Ambulatory with complaints of Ear snw Pain, Knee Pain. 03:17 The patient presents with pain, that is acute. The complaints affect the right ear. snw Onset: The symptoms/episode began/occurred suddenly. Modifying factors: The symptoms are alleviated by nothing. Associated signs and symptoms: The patient has no apparent associated signs or symptoms. Severity of symptoms: At their worst the symptoms were moderate severe. It is unknown whether or not the patient has had similar symptoms in the past. The patient has been recently seen by a physician: the patient's primary care provider, with different complaint(s). 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 - Post-menopause lp1 Historical: - Allergies: 19:55 NKDA; lp1 - Home Meds: 19:55 Adderall XR Oral 1 cap once daily [Active]; clonazepam 2 mg Oral tab 1 tab 2 times per lp1 day [Active]; fluoxetine 40 mg Oral cap 1 cap once daily [Active]; lithium carbonate 300 mg Oral TbER 1 tab 2 times per day [Active]; quetiapine 300 mg Oral tab 2 tabs nightly [Active]; - PMHx: 19:55 Asthma; Bipolar disorder; breast cancer- in remission; COPD; Depression; Diabetes - lp1 NIDDM; Diverticulitis; Hepatitis; PTSD; - PSHx: 19:55 None; lp1 - Immunization history:: Immunization history: Adult Immunizations up to date, Flu vaccine is not up to date. - Social history:: Smoking status: Patient uses tobacco products, smokes one-half pack cigarettes per day. - Ebola Screening: : No symptoms or risks identified at this time. ROS: 02/16 03:16 Constitutional: Negative for fever, chills, and weight loss, Eyes: Negative for injury, snw pain, redness, and discharge, Neck: Negative for injury, pain, and swelling, Cardiovascular: Negative for chest pain, palpitations, and edema, Respiratory: Negative for shortness of breath, cough, wheezing, and pleuritic chest pain, Abdomen/GI: Negative for abdominal pain, nausea, vomiting, diarrhea, and constipation, Back: Negative for injury and pain, : Negative for injury, bleeding, discharge, and swelling, Neuro: Negative for headache, weakness, numbness, tingling, and seizure. ENT: Positive for ear pain. MS/extremity: Positive for abrasion, contusion, pain, of the bilateral knees and right lower anterior avila. Skin: Positive for abscess, of the right axilla. Exam: 03:12 Constitutional: This is a well developed, well nourished patient who is awake, alert, snw and in no acute distress. Head/Face: Normocephalic, atraumatic. Eyes: Pupils equal round and reactive to light, extra-ocular motions intact. Lids and lashes normal. Conjunctiva and sclera are non-icteric and not injected. Cornea within normal limits. Periorbital areas with no swelling, redness, or edema. ENT: Nares patent. No nasal discharge, no septal abnormalities noted. Tympanic membrane is normal on the left, perforated with dried blood on the right, external auditory canal is clear on the left with dried blood and exudate on the right. Oropharynx with no redness, swelling, or masses, exudates, or evidence of obstruction, uvula midline. Mucous membranes moist. Neck: Trachea midline, no thyromegaly or masses palpated, and no cervical lymphadenopathy. Supple, full range of motion without nuchal rigidity, or vertebral point tenderness. No Meningismus. Cardiovascular: Regular rate and rhythm with a normal S1 and S2. No gallops, murmurs, or rubs. Normal PMI, no JVD. No pulse deficits. Respiratory: Lungs have equal breath sounds bilaterally, clear to auscultation and percussion. No rales, rhonchi or wheezes noted. No increased work of breathing, no retractions or nasal flaring. Abdomen/GI: Soft, non-tender, with normal bowel sounds. No distension or tympany. No guarding or rebound. No evidence of tenderness throughout. Back: No spinal tenderness. No costovertebral tenderness. Full range of motion. Skin: Warm, dry with normal turgor. Normal color with no rashes, no lesions, and no evidence of cellulitis. Neuro: Awake and alert, GCS 15, oriented to person, place, time, and situation. Cranial nerves II-XII grossly intact. Motor strength 5/5 in all extremities. Sensory grossly intact. Cerebellar exam normal. Normal gait. Psych: Awake, alert, with orientation to person, place and time. Behavior, mood, and affect are within normal limits. 03:12 Chest/axilla: Inspection: abscess, that is small, of the right axilla several scars from previous abscesses, area of erythema, minimal induration, no fluctuance x 4, no dc, no warmth. 03:12 Musculoskeletal/extremity: Extremities: tenderness to anterior avila area of right lower extremity, left knee with small abrasion, Circulation is intact in all extremities. Sensation intact. Vital Signs: 02/15 19:54 BP 129 / 55; Pulse 107; Resp 18; Temp 98.5(O); Pulse Ox 97% on R/A; Weight 99.79 kg; lp1 Height 5 ft. 4 in. (162.56 cm); Pain 08/17; 21:05 BP 115 / 70; Pulse 95; Resp 17; Pulse Ox 99% ; rr5 19:54 Body Mass Index 37.76 (99.79 kg, 162.56 cm) lp1 MDM: 20:14 Patient medically screened. snw 02/16 03:11 Data reviewed: vital signs, nurses notes. Data interpreted: Pulse oximetry: on room air snw is 99 %. Interpretation: normal. Counseling: I had a detailed discussion with the patient and/or guardian regarding: the historical points, exam findings, and any diagnostic results supporting the discharge/admit diagnosis, the need for outpatient follow up, for definitive care, to return to the emergency department if symptoms worsen or persist or if there are any questions or concerns that arise at home. Special discussion: Based on the history and exam findings, there is no indication for further emergent testing or inpatient evaluation. I discussed with the patient/guardian the need to see the primary care provider for further evaluation of the symptoms. 02/15 20:26 Order name: Walking boot: right; Complete Time: 20:46 snw Administered Medications: 02/15 20:30 Drug: [place] 5 mg-325 mg 1 tabs Route: PO; rr5 21:19 Follow up: Response: No adverse reaction rr5 20:30 Drug: Clindamycin 300 mg Route: PO; rr5 21:20 Follow up: Response: No adverse reaction rr5 Disposition: 02/15/19 20:32 Discharged to Home. Impression: Acute serous otitis media, right ear, Unspecified perforation of tympanic membrane, right ear, Cutaneous abscess of right axilla, Abrasion, left knee, Pain in right leg. - Condition is Stable. - Discharge Instructions: Skin Abscess, Eardrum Rupture, Adult, Otitis Media, Adult, Musculoskeletal Pain, Heat Therapy, Walking Boot. - Prescriptions for Clindamycin HCl 300 mg Oral Capsule - take 1 capsule by ORAL route every 6 hours for 10 days; 40 capsule. Cortisporin- TC 3.3-3-10-0.5 mg/mL Otic Suspension - instill 4 drop by OTIC route every 6 hours; 1 bottle. - Medication Reconciliation Form, Thank You Letter, Antibiotic Education, Prescription Opioid Use form. - Follow up: Private Physician; When: 2 - 3 days; Reason: Recheck today's complaints, Continuance of care, Re-evaluation by your physician. Follow up: Emergency Department; When: As needed; Reason: Worsening of condition. Signatures: Sveta Moss, ASIA-C OUTREACH CLINICIAN-Csnw Saige Fischer RN RN lp1 Jonnie Camara RN RN rr5 Corrections: (The following items were deleted from the chart) 21:22 20:32 02/15/2019 20:32 Discharged to Home. Impression: Acute serous otitis media, right rr5 ear; Unspecified perforation of tympanic membrane, right ear; Cutaneous abscess of right axilla; Abrasion, left knee; Pain in right leg. Condition is Stable. Forms are Medication Reconciliation Form, Thank You Letter, Antibiotic Education, Prescription Opioid Use. Follow up: Private Physician; When: 2 - 3 days; Reason: Recheck today's complaints, Continuance of care, Re-evaluation by your physician. Follow up: Emergency Department; When: As needed; Reason: Worsening of condition. snw
--- NOTE | 2019-02-15 20:33 | ER ---
Nurse's Notes [facility] Name: Wendi Norton Age: 53 yrs Sex: Female : 1965 Arrival Date: 02/15/2019 Time: 19:50 Bed 12 Private MD: Diagnosis: Acute serous otitis media, right ear;Unspecified perforation of tympanic membrane, right ear;Cutaneous abscess of right axilla;Abrasion, left knee;Pain in right leg Presentation: 02/15 19:52 Presenting complaint: Patient states: Bilateral ear pain, "I feel like they are lp1 infected, the right hurts worse"; States her legs have been hurting her, "they just give out on me sometimes". Transition of care: patient was not received from another setting of care. Onset of symptoms was February 15, 2019. Risk Assessment: Do you want to hurt yourself or someone else? Patient reports no desire to harm self or others. Initial Sepsis Screen: Does the patient meet any 2 criteria? No. Patient's initial sepsis screen is negative. Does the patient have a suspected source of infection? No. Patient's initial sepsis screen is negative. Care prior to arrival: None. 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 - Post-menopause lp1 Historical: - Allergies: 19:55 NKDA; lp1 - Home Meds: 19:55 Adderall XR Oral 1 cap once daily [Active]; clonazepam 2 mg Oral tab 1 tab 2 times per lp1 day [Active]; fluoxetine 40 mg Oral cap 1 cap once daily [Active]; lithium carbonate 300 mg Oral TbER 1 tab 2 times per day [Active]; quetiapine 300 mg Oral tab 2 tabs nightly [Active]; - PMHx: 19:55 Asthma; Bipolar disorder; breast cancer- in remission; COPD; Depression; Diabetes - lp1 NIDDM; Diverticulitis; Hepatitis; PTSD; - PSHx: 19:55 None; lp1 - Immunization history:: Immunization history: Adult Immunizations up to date, Flu vaccine is not up to date. - Social history:: Smoking status: Patient uses tobacco products, smokes one-half pack cigarettes per day. - Ebola Screening: : No symptoms or risks identified at this time. Screenin:07 Abuse screen: Denies threats or abuse. Denies injuries from another. Nutritional rr5 screening: No deficits noted. Tuberculosis screening: No symptoms or risk factors identified. Fall Risk None identified. Assessment: 20:00 General: Appears in no apparent distress. uncomfortable, Behavior is calm, cooperative, rr5 appropriate for age. Pain: Complains of pain in right ear and left ear Pain does not radiate. Pain currently is 10 out of 10 on a pain scale. Quality of pain is described as aching, Pain began gradually, Is intermittent. Neuro: Level of Consciousness is awake, alert, obeys commands, Oriented to person, place, time, situation, Appropriate for age. Cardiovascular: Capillary refill < 3 seconds Patient's skin is warm and dry. Cardiovascular: Capillary refill < 3 seconds Patient's skin is warm and dry. Respiratory: Airway is patent Respiratory effort is even, unlabored, Respiratory pattern is regular, symmetrical. EENT: Ear canal ear wax noted.. 20:00 GI: No signs and/or symptoms were reported involving the gastrointestinal system. : rr5 No signs and/or symptoms were reported regarding the genitourinary system. Derm: redness swelling right armpit. Musculoskeletal: Circulation, motion, and sensation intact. Range of motion: intact in all extremities, Reports pain in knee. 21:20 Reassessment: Patient appears in no apparent distress at this time. Patient is alert, rr5 oriented x 3, equal unlabored respirations, skin warm/dry/pink. discharge instruction given and explained without complaints made. Patient states feeling better. Patient states symptoms have improved. Vital Signs: 19:54 BP 129 / 55; Pulse 107; Resp 18; Temp 98.5(O); Pulse Ox 97% on R/A; Weight 99.79 kg; lp1 Height 5 ft. 4 in. (162.56 cm); Pain 10/10; 21:05 BP 115 / 70; Pulse 95; Resp 17; Pulse Ox 99% ; rr5 19:54 Body Mass Index 37.76 (99.79 kg, 162.56 cm) lp1 ED Course: 19:50 Patient arrived in ED. do 19:54 Triage completed. lp1 19:55 Arm band placed on. lp1 19:57 Jonnie Camara, KEYUR is Primary Nurse. rr5 20:00 Patient has correct armband on for positive identification. rr5 20:14 Sveta Moss FNP-C is PHCP. snw 20:14 Donavan Hawley MD is Attending Physician. snw 21:00 No provider procedures requiring assistance completed. Patient did not have IV access rr5 during this emergency room visit. Ortho shoe applied to right foot. Administered Medications: 20:30 Drug: [place] 5 mg-325 mg 1 tabs Route: PO; rr5 21:19 Follow up: Response: No adverse reaction rr5 20:30 Drug: Clindamycin 300 mg Route: PO; rr5 21:20 Follow up: Response: No adverse reaction rr5 Outcome: 20:32 Discharge ordered by . snw 21:20 Discharged to home ambulatory, with family. rr5 21:20 Condition: stable 21:20 Discharge instructions given to patient, family, Instructed on discharge instructions, follow up and referral plans. medication usage, Demonstrated understanding of instructions, follow-up care, medications, Prescriptions given X 2. 21:22 Patient left the ED. rr5 Signatures: Sveta Moss FNP-C VARNISH BLENDER-Csnw Saige Fischer RN RN lp1 Holly Randall Raymond, RN RN rr5 Corrections: (The following items were deleted from the chart) 19:56 19:54 Pain 10/10; lp1 lp1 20:10 20:00 Musculoskeletal: Circulation, motion, and sensation intact. Range of motion: rr5 intact in all extremities, rr5
[2019-02-15] MEDS ORDERED: HYDROCODONE/APAP 5/325 MG TAB ONE (20:47)
[2019-02-15] MEDS ORDERED: CLINDAMYCIN HCL 150 MG CAP ONE (20:47)
[2019-02-15 21:28] VITALS: TEMP 98.5
[2019-02-15 21:37] VITALS: BP 115/70; O2SAT 99
== END 2019-02-15 21:22 | disposition home or self-care (01) ==
LOC: ER 19:47
DX: H65.01 Acute serous otitis media, right ear (principal); H72.91 Unspecified perforation of tympanic membrane, right ear; L02.411 Cutaneous abscess of right axilla; S80.212A Abrasion, left knee, initial encounter; X58.XXXA Exposure to other specified factors, initial encounter; M25.561 Pain in right knee; J44.9 Chronic obstructive pulmonary disease, unspecified; E11.9 Type 2 diabetes mellitus without complications; F31.9 Bipolar disorder, unspecified; F17.210 Nicotine dependence, cigarettes, uncomplicated; Z79.899 Other long term (current) drug therapy
CPT/HCPCS: 99283

== ENCOUNTER 2019-03-13 14:08 | Emergency (ER) | payer OTHER ==
--- OUTSIDE RECORDS SUMMARY | 2019-03-13 14:19 | XMS REPORT ---
:1965 Author Organization [facility] Address [address] [place] [address] Dr. Baker [address] [place] [address] Care Team Providers Name Role Phone MARKO [...] send to the Main Lab for Analysis. [id number] 08:15:00 Test Item Value Reference Range Comments [place] (test code=LI) 0.44 mmol/L 0.6-1.2 POC Glucose, [id number] 05:37:00 Test Item Value Reference Range Comments POC Glucose (test 134 mg/dL 70-115 If you consider your patient code=POCGLUC) critically ill, the Moira Accu-Chek InformII metershould not be used for Glucose determinations.Draw a venous Glucose and send to the Main Lab for Analysis. POC Glucose, [id number] 07:28:00 Test Item Value Reference Range Comments POC Glucose (test 128 mg/dL 70-115 If you consider your patient code=POCGLUC) critically ill, the Moira Accu-Chek InformII metershould not be used for Glucose determinations.Draw a venous Glucose and send to the Main Lab for Analysis. POC Glucose, [id number] 20:18:00 Test Item Value Reference Range Comments POC Glucose (test 121 mg/dL 70-115 If you consider your patient code=POCGLUC) critically ill, the Moira Accu-Chek InformII metershould not be used for Glucose determinations.Draw a venous Glucose and send to the Main Lab for Analysis. BHCG, Serum, [id number] 22:36:00 Test Item Value Reference Range Comments Preg Qual [Se] (test code=BSHCG) Negative Negative POC Glucose, [id number] 15:14:00 Test Item Value Reference Range Comments POC Glucose (test 117 mg/dL 70-115 If you consider your patient code=POCGLUC) critically ill, the Moira Accu-Chek InformII metershould not be used for Glucose determinations.Draw a venous Glucose and send to the Main Lab for Analysis.
--- OUTSIDE RECORDS SUMMARY | 2019-03-13 14:19 | XMS REPORT | Clinical Summary ---
:[address] [facility] Address [address] [place] [address] Care Team Providers Name Role Phone Unavailable [...] Not on file Results Not on fileafter 03/12/2018 Insurance Payer Benefit Plan / Group Subscriber ID Type Phone Address MEDICARE MEDICARE A B xxxxxxxxxx Medicare MEDICAID MEDICAID [facility] xxxxxxxxx Medicaid Advance Directives For more information, please contact:[place] [phone] [facility] [place], [place] [phone] Code Status Date Activated Date Inactivated Comments Full Code 04/22/2016 12:20 PM 04/29/2016 5:47 PM This code status was determined by: Patient
[2019-03-13] MEDS ORDERED: KETOROLAC 30 MG/ML INJ ONE (16:34)
--- NOTE | 2019-03-13 17:00 | ER ---
Nurse's Notes [facility] Name: Wendi Norton Age: 53 yrs Sex: Female : 1965 Arrival Date: 03/13/2019 Time: 14:09 Bed 20 Private MD: None, None Diagnosis: Otalgia;Pain in left leg;Pain in right leg;Other chronic pain Presentation: 03/13 14:41 Presenting complaint: Patient states: "It's more like a follow up today, but last week ss I was here for an ear thing, and I still have ear drainage and a cough, and my legs hurts so if I can get a couple Tylenol #3s until I can get in with my doctor that would be good.". Transition of care: patient was not received from another setting of care. Onset of symptoms is unknown. Risk Assessment: Do you want to hurt yourself or someone else? Patient reports no desire to harm self or others. Initial Sepsis Screen: Does the patient meet any 2 criteria? HR > 90 bpm. No. Patient's initial sepsis screen is negative. Does the patient have a suspected source of infection? No. Patient's initial sepsis screen is negative. Care prior to arrival: None. 14:41 Method Of Arrival: Ambulatory ss 14:41 Acuity: RAUL 5 ss Triage Assessment: 16:06 General: Appears in no apparent distress. uncomfortable, Behavior is calm, cooperative, hj appropriate for age. Pain: Complains of pain in right ear. EENT: Reports pain in right ear. 16:06 Neuro: Level of Consciousness is awake, alert, obeys commands, Oriented to person, hj place, time, situation, Appropriate for age. Cardiovascular: Capillary refill < 3 seconds Patient's skin is warm and dry. Respiratory: Airway is patent Respiratory effort is even, unlabored, Respiratory pattern is regular, symmetrical. GI: No signs and/or symptoms were reported involving the gastrointestinal system. : No signs and/or symptoms were reported regarding the genitourinary system. Derm: No signs and/or symptoms reported regarding the dermatologic system. Musculoskeletal: No signs and/or symptoms reported regarding the musculoskeletal system. 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 - Social history:: Smoking status: Patient uses tobacco products, 4 cigarettes/ day. - Ebola Screening: : Patient denies exposure to infectious person Patient denies travel to an Ebola-affected area in the 21 days before illness onset. Screenin:06 Abuse screen: Denies threats or abuse. Denies injuries from another. Nutritional hj screening: No deficits noted. Tuberculosis screening: No symptoms or risk factors identified. Fall Risk None identified. Assessment: 16:44 Reassessment: Patient and/or family updated on plan of care and expected duration. Pain hj level reassessed. Patient is alert, oriented x 3, equal unlabored respirations, skin warm/dry/pink. awaiting POC; Patient states feeling better. Vital Signs: 14:43 BP 97 / 77; Pulse 104; Resp 20; Temp 98.6(O); Pulse Ox 95% on R/A; Weight 90.72 kg; ss Height 5 ft. 4 in. (162.56 cm); Pain 9/10; 16:14 BP 151 / 88; Pulse 96; Pulse Ox 95% on R/A; mb4 17:10 BP 140 / 74; Pulse 90; Resp 18; Pulse Ox 96% ; hj 14:43 Body Mass Index 34.33 (90.72 kg, 162.56 cm) ED Course: 14:09 Patient arrived in ED. mr 14:10 None, None is Private Physician. mr 14:42 Triage completed. ss 14:43 Arm band placed on left wrist. ss 16:04 Alphonso Simeon PA is PHCP. jr8 16:05 Donavan Hawley MD is Attending Physician. jr8 16:06 Luis Carlos Ireland, KEYUR is Primary Nurse. hj 16:08 Bed in low position. Call light in reach. Side rails up X 1. Pulse ox on. NIBP on. mb4 16:08 Patient has correct armband on for positive identification. Bed in low position. Call light in reach. Side rails up X 1. 17:09 No provider procedures requiring assistance completed. Patient did not have IV access hj during this emergency room visit. Administered Medications: 16:19 Drug: TORadol - Ketorolac 15 mg Route: IM; Site: right deltoid; 16:24 Follow up: Response: No adverse reaction; Pain is decreased Outcome: 17:00 Discharge ordered by . twyla 17:10 Discharged to home ambulatory. 17:10 Condition: stable 17:10 Discharge instructions given to patient, Instructed on discharge instructions, follow up and referral plans. medication usage, Demonstrated understanding of instructions, follow-up care, medications, Prescriptions given X 1. 17:11 Patient left the ED. Signatures: Charisse Arora mr Dana Worley RN RN Alphonso Simeon PA PA Luis Carlos Kirkpatrick RN RN Adelia Monteoj mb4 Corrections: (The following items were deleted from the chart) 14:44 14:41 Initial Sepsis Screen: Does the patient meet any 2 criteria? No. Patient's ss initial sepsis screen is negative. Does the patient have a suspected source of infection? No. Patient's initial sepsis screen is negative.
--- NOTE | 2019-03-13 17:00 | EDPHYS ---
Physician Documentation [facility] Name: Wendi Norton Age: 53 yrs Sex: Female : 1965 Arrival Date: 03/13/2019 Time: 14:09 Bed 20 Private MD: None, None ED Physician Donavan Hawley HPI: 03/13 16:18 This 53 yrs old Female presents to ER via Ambulatory with complaints of Ear jr8 Pain. 16:18 The patient presents with "itching". The complaints affect the right ear and left ear. jr8 Onset: The symptoms/episode began/occurred last week. Associated signs and symptoms: Pertinent negatives: cough, fever, rhinorrhea, sore throat. Severity of symptoms: Pain is currently a 6 / 10. The patient has experienced a previous episode, last week. The patient has been recently seen at the [facility] Emergency Department, last week. Patient also report bilateral intermittent sharp lower leg pain in her knees. Reports pain is severe enough to cause her to fall occasionally. Denies recent preceding trauma. . 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 - Social history:: Smoking status: Patient uses tobacco products, 4 cigarettes/ day. - Ebola Screening: : Patient denies exposure to infectious person Patient denies travel to an Ebola-affected area in the 21 days before illness onset. ROS: 16:21 Constitutional: Negative for fever, chills, and weight loss, Cardiovascular: Negative jr8 for chest pain, palpitations, and edema, Respiratory: Negative for shortness of breath, cough, wheezing, and pleuritic chest pain, Abdomen/GI: Negative for abdominal pain, nausea, vomiting, diarrhea, and constipation, Skin: Negative for injury, rash, and discoloration, Neuro: Negative for headache, weakness, numbness, tingling, and seizure. 16:21 ENT: Positive for "ear itching", Negative for drainage from ear(s), ear pain, rhinorrhea, sore throat. 16:21 MS/extremity: Positive for pain, Negative for acute changes, injury or acute deformity, decreased range of motion, deformity, ecchymosis, laceration, paresthesias, swelling, tenderness. Exam: 16:22 Constitutional: This is a well developed, well nourished patient who is awake, alert, jr8 and in no acute distress. ENT: Nares patent. No nasal discharge, no septal abnormalities noted. Tympanic membranes are normal and external auditory canals are clear. Oropharynx with no redness, swelling, or masses, exudates, or evidence of obstruction, uvula midline. Mucous membranes moist. Neck: Trachea midline, no thyromegaly or masses palpated, and no cervical lymphadenopathy. Supple, full range of motion without nuchal rigidity, or vertebral point tenderness. No Meningismus. Chest/axilla: Normal chest wall appearance and motion. Nontender with no deformity. No lesions are appreciated. Cardiovascular: Regular rate and rhythm with a normal S1 and S2. No gallops, murmurs, or rubs. Normal PMI, no JVD. No pulse deficits. Respiratory: Lungs have equal breath sounds bilaterally, clear to auscultation and percussion. No rales, rhonchi or wheezes noted. No increased work of breathing, no retractions or nasal flaring. Skin: Warm, dry with normal turgor. Normal color with no rashes, no lesions, and no evidence of cellulitis. MS/ Extremity: Pulses equal, no cyanosis. Neurovascular intact. Full, normal range of motion. Neuro: Awake and alert, GCS 15, oriented to person, place, time, and situation. Cranial nerves II-XII grossly intact. Motor strength 5/5 in all extremities. Sensory grossly intact. Cerebellar exam normal. Normal gait. Vital Signs: 14:43 BP 97 / 77; Pulse 104; Resp 20; Temp 98.6(O); Pulse Ox 95% on R/A; Weight 90.72 kg; ss Height 5 ft. 4 in. (162.56 cm); Pain 9/10; 16:14 BP 151 / 88; Pulse 96; Pulse Ox 95% on R/A; mb4 17:10 BP 140 / 74; Pulse 90; Resp 18; Pulse Ox 96% ; hj 14:43 Body Mass Index 34.33 (90.72 kg, 162.56 cm) MDM: 16:05 Patient medically screened. jr8 16:59 Data reviewed: vital signs, nurses notes, and as a result, I will discharge patient. jr8 Data interpreted: Pulse oximetry: on room air is 95 %. Interpretation: normal. Counseling: I had a detailed discussion with the patient and/or guardian regarding: the historical points, exam findings, and any diagnostic results supporting the discharge/admit diagnosis, the need for outpatient follow up, a family practitioner, to return to the emergency department if symptoms worsen or persist or if there are any questions or concerns that arise at home. Response to treatment: the patient's symptoms have markedly improved after treatment. 17:05 ED course: Patient reports pain relief after Toradol. Instructed patient to use OTC jr8 allergy medication to assist in ear itching. Patient verbalized understanding. Patient to follow up with PCP. Administered Medications: 16:19 Drug: TORadol - Ketorolac 15 mg Route: IM; Site: right deltoid; hj 16:24 Follow up: Response: No adverse reaction; Pain is decreased hj Disposition: 03/14 07:02 Co-signature as Attending Physician, Donavan Hawley MD I agree with the assessment and shefali plan of care. Disposition: 03/13/19 17:00 Discharged to Home. Impression: Otalgia, Pain in left leg, Pain in right leg, Other chronic pain. - Condition is Stable. - Discharge Instructions: Chronic Pain. - Prescriptions for Mobic 7.5 mg Oral Tablet - take 1 tablet by ORAL route once daily take with food; 20 tablet. - Medication Reconciliation Form, Thank You Letter, Antibiotic Education, Prescription Opioid Use form. - Follow up: Private Physician; When: 5 - 6 days; Reason: Recheck today's complaints, Continuance of care, Re-evaluation by your physician. - Problem is new. - Symptoms have improved. Signatures: Donavan Hawley MD MD cha Smirch, Shelby, RN RN Alphonso Simeon PA PA jr8 Luis Carlos Ireland RN RN hj Corrections: (The following items were deleted from the chart) 03/13 17:00 17:00 03/13/2019 17:00 Discharged to Home. Impression: Otalgia; Pain in left leg; Pain jr8 in right leg. Condition is Stable. Forms are Medication Reconciliation Form, Thank You Letter, Antibiotic Education, Prescription Opioid Use. Follow up: Private Physician; When: 5 - 6 days; Reason: Recheck today's complaints, Continuance of care, Re-evaluation by your physician. Problem is new. Symptoms have improved. jr8 17:11 17:00 03/13/2019 17:00 Discharged to Home. Impression: Otalgia; Pain in left leg; Pain hj in right leg; Other chronic pain. Condition is Stable. Forms are Medication Reconciliation Form, Thank You Letter, Antibiotic Education, Prescription Opioid Use. Follow up: Private Physician; When: 5 - 6 days; Reason: Recheck today's complaints, Continuance of care, Re-evaluation by your physician. Problem is new. Symptoms have improved. jr8
[2019-03-13 18:40] VITALS: TEMP 98.6
[2019-03-13 18:41] VITALS: BP 140/74; O2SAT 96
== END 2019-03-13 17:11 | disposition home or self-care (01) ==
LOC: ER 14:08
DX: M79.605 Pain in left leg (principal); M79.604 Pain in right leg; G89.29 Other chronic pain; J45.909 Unspecified asthma, uncomplicated; F31.9 Bipolar disorder, unspecified; C50.919 Malignant neoplasm of unspecified site of unspecified female breast; E11.9 Type 2 diabetes mellitus without complications; J44.9 Chronic obstructive pulmonary disease, unspecified; F32.9 Major depressive disorder, single episode, unspecified; Z72.0 Tobacco use
CPT/HCPCS: 96372; 99283

== ENCOUNTER 2019-03-15 02:16 | Emergency (ER) | payer OTHER ==
--- OUTSIDE RECORDS SUMMARY | 2019-03-15 02:19 | XMS REPORT ---
:1965 Author Organization [facility] Address [address] [place] [address] Dr. Baker [address] [place] [id number] Care Team Providers Name Role Phone MARKO [...] send to the Main Lab for Analysis. [id number] 08:15:00 Test Item Value Reference Range Comments [place] (test code=LI) 0.44 mmol/L 0.6-1.2 POC Glucose, [id number] 05:37:00 Test Item Value Reference Range Comments POC Glucose (test 134 mg/dL 70-115 If you consider your patient code=POCGLUC) critically ill, the Moira Accu-Chek InformII metershould not be used for Glucose determinations.Draw a venous Glucose and send to the Main Lab for Analysis. POC Glucose, [id number] 07:28:00 Test Item Value Reference Range Comments POC Glucose (test 128 mg/dL 70-115 If you consider your patient code=POCGLUC) critically ill, the Moira Accu-Chek InformII metershould not be used for Glucose determinations.Draw a venous Glucose and send to the Main Lab for Analysis. POC Glucose, [id number] 20:18:00 Test Item Value Reference Range Comments POC Glucose (test 121 mg/dL 70-115 If you consider your patient code=POCGLUC) critically ill, the Moira Accu-Chek InformII metershould not be used for Glucose determinations.Draw a venous Glucose and send to the Main Lab for Analysis. BHCG, Serum, [id number] 22:36:00 Test Item Value Reference Range Comments Preg Qual [Se] (test code=BSHCG) Negative Negative POC Glucose, [id number] 15:14:00 Test Item Value Reference Range Comments POC Glucose (test 117 mg/dL 70-115 If you consider your patient code=POCGLUC) critically ill, the Moira Accu-Chek InformII metershould not be used for Glucose determinations.Draw a venous Glucose and send to the Main Lab for Analysis.
--- OUTSIDE RECORDS SUMMARY | 2019-03-15 02:19 | XMS REPORT | Clinical Summary ---
:1965 Author Organization [facility] Address [address] [place] [address] Care Team Providers Name Role Phone Unavailable [...] Not on file Results Not on fileafter 03/14/2018 Insurance Payer Benefit Plan / Group Subscriber ID Type Phone Address MEDICARE MEDICARE A B xxxxxxxxxx Medicare MEDICAID MEDICAID [facility] xxxxxxxxx Medicaid Advance Directives For more information, please contact:[place] [phone] [facility] [place], [place] [phone] Code Status Date Activated Date Inactivated Comments Full Code 04/22/2016 12:20 PM 04/29/2016 5:47 PM This code status was determined by: Patient
[2019-03-15] MEDS ORDERED: IPRATROPIUM BROM 0.5MG/2.5ML ONE (02:46)
[2019-03-15] MEDS ORDERED: KETOROLAC 30 MG/ML INJ ONE (02:46)
[2019-03-15] MEDS ORDERED: ALBUTEROL 2.5 MG/3 ML NEB SOL ONE (02:46)
[2019-03-15] MEDS ORDERED: NA CHLORIDE 0.9% 1,000 ML ONE (03:18)
--- NOTE | 2019-03-15 04:08 | EDPHYS ---
Physician Documentation [facility] Name: Wendi Norton Age: 53 yrs Sex: Female : 1965 Arrival Date: 03/15/2019 Time: 02:20 Bed 5 Private MD: ED Physician Daniel Bauman HPI: 03/15 02:29 This 53 yrs old Female presents to ER via EMS with complaints of Back Pain. tw4 02:29 The patient presents with pain, that is chronic. The complaints affect the left lateral tw4 ankle, lateral aspect of left foot, left Achilles, left heel, left medial ankle, medial aspect of left foot, anterior aspect of left ankle and dorsum of left foot, right ankle, lateral aspect of right foot, right Achilles, right heel, medial aspect of right foot, anterior aspect of right ankle and dorsum of right foot. 02:30 The complaints affect the lateral aspect of left knee, lateral aspect of left foot, tw4 posterior aspect of left knee, left heel, medial aspect of left knee, medial aspect of left foot, left knee and dorsum of left foot, lateral aspect of right knee, lateral aspect of right foot, posterior aspect of right knee, right heel, medial aspect of right knee, medial aspect of right foot, right knee and dorsum of right foot. Onset: The symptoms/episode began/occurred at an unknown time. Modifying factors: The symptoms are alleviated by nothing. the symptoms are aggravated by movement, weight bearing. Associated signs and symptoms: The patient has no apparent associated signs or symptoms. Severity of symptoms: At their worst the symptoms were moderate, in the emergency department the symptoms are unchanged. The patient has experienced similar episodes in the past, several times. Pt states she has had chronic pain both of her lower extremities for a month and a half. Denies pervious injury.. 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 - Social history:: Smoking status: unknown. - Ebola Screening: : No symptoms or risks identified at this time. ROS: 02:30 Constitutional: Negative for fever, chills, and weight loss, Eyes: Negative for injury, tw4 pain, redness, and discharge, Cardiovascular: Negative for chest pain, palpitations, and edema, Respiratory: Negative for shortness of breath, cough, wheezing, and pleuritic chest pain, Abdomen/GI: Negative for abdominal pain, nausea, vomiting, diarrhea, and constipation, Skin: Negative for injury, rash, and discoloration. 02:30 MS/extremity: Positive for decreased range of motion, pain, Negative for injury or acute deformity, abrasion, paresthesias, rash. Exam: 02:30 Constitutional: This is a well developed, well nourished patient who is awake, alert, tw4 and in no acute distress. Head/Face: Normocephalic, atraumatic. Chest/axilla: Normal chest wall appearance and motion. Nontender with no deformity. No lesions are appreciated. Cardiovascular: Regular rate and rhythm with a normal S1 and S2. No gallops, murmurs, or rubs. Normal PMI, no JVD. No pulse deficits. Respiratory: Lungs have equal breath sounds bilaterally, clear to auscultation and percussion. No rales, rhonchi or wheezes noted. No increased work of breathing, no retractions or nasal flaring. Abdomen/GI: Soft, non-tender, with normal bowel sounds. No distension or tympany. No guarding or rebound. No evidence of tenderness throughout. Back: No spinal tenderness. No costovertebral tenderness. Full range of motion. Neuro: Awake and alert, GCS 15, oriented to person, place, time, and situation. Cranial nerves II-XII grossly intact. Motor strength 5/5 in all extremities. Sensory grossly intact. Cerebellar exam normal. Normal gait. 02:30 Musculoskeletal/extremity: Extremities: noted in the lateral side of right heel, right lateral malleolus, right medial malleolus, right Achilles, medial aspect of right heel and instep of right foot: pain, There is no evidence of abrasion, bite, contusion, deformity, ecchymosis, erythema, laceration, swelling, noted in the lateral aspect of right knee, posterior aspect of right knee, medial aspect of right knee and right knee: pain, abrasion, deformity, ecchymosis, erythema, laceration, swelling, noted in the lateral aspect of left knee, posterior aspect of left knee, medial aspect of left knee and left knee: pain, abrasion, bite, contusion, deformity, ecchymosis, erythema, laceration, swelling. Vital Signs: 02:27 BP 94 / 45 (auto/); Pulse 103; Resp 18 S; Temp 97.5(O); Pulse Ox 95% on R/A; Weight bb 92.53 kg (R); Height 5 ft. 4 in. (162.56 cm) (R); Pain 10/10; 02:28 BP 90 / 52 RA (man/reg); ea 02:30 BP 93 / 54; jd3 03:00 BP 88 / 50; Pulse 96; Resp 17 S; Pulse Ox 94% on R/A; jd3 03:56 BP 106 / 58 LA (man/reg); ea 03:59 BP 105 / 59; Pulse 93; Resp 19; Pulse Ox 95% on R/A; ea 02:27 Body Mass Index 35.02 (92.53 kg, 162.56 cm) bb 03:00 provider notified of low blood pressure. orders recieved, view MAR. jd3 MDM: 02:21 Patient medically screened. tw4 04:03 Differential diagnosis: tendonitis, chronic pain syndrome. Data reviewed: vital signs, tw4 nurses notes. Data interpreted: Pulse oximetry: Interpretation: normal. Counseling: I had a detailed discussion with the patient and/or guardian regarding: the historical points, exam findings, and any diagnostic results supporting the discharge/admit diagnosis. Special discussion: I discussed with the patient/guardian in detail that at this point there is no indication for admission to the hospital. It is understood, however, that if the symptoms persist or worsen the patient needs to return immediately for re-evaluation. ED course: pt was recently seen yesterday am with the same complaints. There have been no new changes with her complaints or additional complaints. Pt appears somewhat intoxicated as her speech seems slurred.. Administered Medications: 02:38 Drug: DuoNeb (3:1) (2.5 mg - 0.5 mg) 3 ml Route: Nebulizer; jd3 04:10 Follow up: Response: No adverse reaction ea 02:38 Drug: TORadol 60 mg Route: IM; Site: right gluteus; jd3 04:10 Follow up: Response: No adverse reaction; Pain is decreased ea 04:10 Not Given (Patient Refused): NS 0.9% 1000 ml IV at 1 bolus Per protocol; 1000 mL bolus ea Disposition: 03/15/19 04:07 Discharged to Home. Impression: Chronic pain syndrome, Other chronic pain. - Condition is Stable. - Discharge Instructions: Chronic Pain, Pain Without a Known Cause. - Prescriptions for Albuterol Sulfate 90 mcg/actuation - inhale 1-2 puff by INHALATION route every 4-6 hours; 1 Inhaler. - Medication Reconciliation Form, Thank You Letter, Antibiotic Education, Prescription Opioid Use form. - Follow up: Private Physician; When: Upon discharge from the Emergency Department; Reason: If symptoms return, Recheck today's complaints, Continuance of care. - Problem is an ongoing problem. - Symptoms are unchanged. Signatures: Carli Ren RN RN bb Antunez, Elena, RN RN ea Davies, Jonathon, RN RN jd3 Wadley, Terrence, MD MD tw4 Corrections: (The following items were deleted from the chart) 04:10 03:25 IV Saline Lock ordered. jd3 ea 04:35 04:07 03/15/2019 04:07 Discharged to Home. Impression: Chronic pain syndrome; Other ea chronic pain. Condition is Stable. Forms are Medication Reconciliation Form, Thank You Letter, Antibiotic Education, Prescription Opioid Use. Follow up: Private Physician; When: Upon discharge from the Emergency Department; Reason: If symptoms return, Recheck today's complaints, Continuance of care. Problem is an ongoing problem. Symptoms are unchanged. tw4
--- NOTE | 2019-03-15 04:08 | ER ---
Nurse's Notes [facility] Name: Wendi Norton Age: 53 yrs Sex: Female : 1965 Arrival Date: 03/15/2019 Time: 02:20 Bed 5 Private MD: Diagnosis: Chronic pain syndrome;Other chronic pain Presentation: 03/15 02:24 Presenting complaint: EMS states: they were toned out for report of pt with left sided bb back pain, foot pain and pt states she is having cramping in her feet. Pt was seen here yesterday for the same thing. Transition of care: patient was not received from another setting of care. Onset of symptoms was March 15, 2019. Risk Assessment: Do you want to hurt yourself or someone else? Patient reports no desire to harm self or others. Initial Sepsis Screen: Does the patient meet any 2 criteria? No. Patient's initial sepsis screen is negative. Does the patient have a suspected source of infection? No. Patient's initial sepsis screen is negative. Care prior to arrival: None. 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 - Social history:: Smoking status: unknown. - Ebola Screening: : No symptoms or risks identified at this time. Screenin:29 Abuse screen: Denies threats or abuse. Nutritional screening: No deficits noted. jd3 Tuberculosis screening: No symptoms or risk factors identified. Fall Risk Ambulatory Aid- None/Bed Rest/Nurse Assist (0 pts). Gait- Weak (10 pts.). Mental Status- Oriented to own ability (0 pts). Total Singleton Fall Scale indicates No Risk (0-24 pts). Assessment: 02:20 General: Appears uncomfortable, Behavior is cooperative, drowsy. Pain: Complains of jd3 pain in back and left foot and right foot Quality of pain is described as sharp. Neuro: Level of Consciousness is awake, obeys commands, Oriented to person, place, time, situation, Appropriate for age Speech is slurred, Facial symmetry appears normal. Cardiovascular: Denies chest pain, Heart tones S1 S2 present Capillary refill < 3 seconds Patient's skin is warm and dry. Respiratory: Airway is patent Respiratory effort is even, unlabored, Respiratory pattern is regular, symmetrical, Breath sounds with wheezes bilaterally. GI: No signs and/or symptoms were reported involving the gastrointestinal system. : No signs and/or symptoms were reported regarding the genitourinary system. EENT: No signs and/or symptoms were reported regarding the EENT system. Derm: Skin is intact, Skin is dry, Skin is normal, Skin temperature is warm. Musculoskeletal: Circulation, motion, and sensation intact. Range of motion: intact in all extremities. 03:30 Reassessment: Patient and/or family updated on plan of care and expected duration. Pain ea level reassessed. Patient is alert, oriented x 3, equal unlabored respirations, skin warm/dry/pink. 04:34 Reassessment: Patient and/or family updated on plan of care and expected duration. Pain ea level reassessed. Patient is alert, oriented x 3, equal unlabored respirations, skin warm/dry/pink. Discharge instruction given to patient, verbalized the understanding of instruction. No s/s of pain or discomfort noted at this time Patient states feeling better. Patient states symptoms have improved. Vital Signs: 02:27 BP 94 / 45 (auto/); Pulse 103; Resp 18 S; Temp 97.5(O); Pulse Ox 95% on R/A; Weight bb 92.53 kg (R); Height 5 ft. 4 in. (162.56 cm) (R); Pain 10/10; 02:28 BP 90 / 52 RA (man/reg); ea 02:30 BP 93 / 54; jd3 03:00 BP 88 / 50; Pulse 96; Resp 17 S; Pulse Ox 94% on R/A; jd3 03:56 BP 106 / 58 LA (man/reg); ea 03:59 BP 105 / 59; Pulse 93; Resp 19; Pulse Ox 95% on R/A; ea 02:27 Body Mass Index 35.02 (92.53 kg, 162.56 cm) bb 03:00 provider notified of low blood pressure. orders recieved, view JAN. jd3 ED Course: 02:20 Patient arrived in ED. jd3 02:21 Daniel Bauman MD is Attending Physician. tw4 02:26 Triage completed. bb 02:27 Arm band placed on Patient placed in an exam room, on a stretcher, on director of cardiac rehabilitation, bb on pulse oximetry. 02:29 Patient has correct armband on for positive identification. Placed in gown. Bed in low jd3 position. Call light in reach. Side rails up X2. 02:38 Eduin Nuno RN is Primary Nurse. jd3 03:26 Missed attempt(s): 22 gauge in right wrist. Bleeding controlled, band aid applied, jd3 catheter tip intact. 03:57 Missed attempt(s): 18 gauge in left antecubital area. Bleeding controlled, band aid ea applied, catheter tip intact. 04:11 No provider procedures requiring assistance completed. ea 04:35 Patient did not have IV access during this emergency room visit. ea Administered Medications: 02:38 Drug: DuoNeb (3:1) (2.5 mg - 0.5 mg) 3 ml Route: Nebulizer; jd3 04:10 Follow up: Response: No adverse reaction ea 02:38 Drug: TORadol 60 mg Route: IM; Site: right gluteus; jd3 04:10 Follow up: Response: No adverse reaction; Pain is decreased ea 04:10 Not Given (Patient Refused): NS 0.9% 1000 ml IV at 1 bolus Per protocol; 1000 mL bolus ea Outcome: 04:07 Discharge ordered by . tw4 04:35 Discharged to home ambulatory. ea 04:35 Condition: improved 04:35 Discharge instructions given to patient, Instructed on discharge instructions, follow up and referral plans. medication usage, Demonstrated understanding of instructions, follow-up care, medications, Prescriptions given X 1. 04:35 Patient left the ED. ea Signatures: Carli Ren RN RN bb Akua Simons RN Eduin Parsons ea, RN RN jd3 Wadley, Terrence, MD MD tw4 Corrections: (The following items were deleted from the chart) 02:20 Pain: Complains of pain in right foot and left foot Quality of pain is described jd3 as sharp, jd3 02:20 Cardiovascular: Denies chest pain, Capillary refill < 3 seconds Patient's skin is jd3 warm and dry. jd3 02:20 Respiratory: Airway is patent Respiratory effort is even, unlabored, Respiratory jd3 pattern is regular, symmetrical, Denies shortness of breath jd3 02:32 02:27 Pulse 103bpm; Resp 18bpm; Spontaneous; Pulse Ox 95% RA; Temp 97.5F Oral; 92.53 kg bb Reported; Height 5 ft. 4 in. Reported; BMI: 35.0; Pain 08/17; bb
[2019-03-15 04:40] VITALS: TEMP 97.5
[2019-03-15 04:45] VITALS: BP 105/59; O2SAT 95
== END 2019-03-15 04:35 | disposition home or self-care (01) ==
LOC: ER 02:16
DX: G89.4 Chronic pain syndrome (principal); F31.9 Bipolar disorder, unspecified; J45.909 Unspecified asthma, uncomplicated; F32.9 Major depressive disorder, single episode, unspecified; J44.9 Chronic obstructive pulmonary disease, unspecified; E11.9 Type 2 diabetes mellitus without complications; F43.10 Post-traumatic stress disorder, unspecified
CPT/HCPCS: 94640; 96372; 99284; J7030

== ENCOUNTER 2019-04-28 18:49 | Emergency (ER) | payer OTHER ==
--- OUTSIDE RECORDS SUMMARY | 2019-04-28 18:53 | XMS REPORT ---
:1965 Author Organization [facility] Address [address] [place] [address] Dr. Baker [address] [place] [id number] Care Team Providers Name Role Phone MARKO [...] send to the Main Lab for Analysis. [id number] 08:15:00 Test Item Value Reference Range Comments [place] (test code=LI) 0.44 mmol/L 0.6-1.2 POC Glucose, [id number] 05:37:00 Test Item Value Reference Range Comments POC Glucose (test 134 mg/dL 70-115 If you consider your patient code=POCGLUC) critically ill, the [place] Accu-Chek InformII metershould not be used for Glucose determinations.Draw a venous Glucose and send to the Main Lab for Analysis. POC Glucose, [id number] 07:28:00 Test Item Value Reference Range Comments POC Glucose (test 128 mg/dL 70-115 If you consider your patient code=POCGLUC) critically ill, the [place] Accu-Chek InformII metershould not be used for Glucose determinations.Draw a venous Glucose and send to the Main Lab for Analysis. POC Glucose, [id number] 20:18:00 Test Item Value Reference Range Comments POC Glucose (test 121 mg/dL 70-115 If you consider your patient code=POCGLUC) critically ill, the [place] Accu-Chek InformII metershould not be used for Glucose determinations.Draw a venous Glucose and send to the Main Lab for Analysis. BHCG, Serum, [id number] 22:36:00 Test Item Value Reference Range Comments Preg Qual [Se] (test code=BSHCG) Negative Negative POC Glucose, [id number] 15:14:00 Test Item Value Reference Range Comments POC Glucose (test 117 mg/dL 70-115 If you consider your patient code=POCGLUC) critically ill, the [place] Accu-Chek InformII metershould not be used for Glucose determinations.Draw a venous Glucose and send to the Main Lab for Analysis.
--- OUTSIDE RECORDS SUMMARY | 2019-04-28 18:53 | XMS REPORT | Clinical Summary ---
:1965 Author Organization [facility] Address [address] [place] [address] Care Team Providers Name Role Phone Unavailable [...] Not on file Results Not on fileafter 04/27/2018 Insurance Payer Benefit Plan / Group Subscriber ID Type Phone Address MEDICARE MEDICARE A B xxxxxxxxxx Medicare MEDICAID MEDICAID [facility] xxxxxxxxx Medicaid Advance Directives For more information, please contact:[place] [id number] [facility] [place], [place] [phone] Code Status Date Activated Date Inactivated Comments Full Code 04/22/2016 12:20 PM 04/29/2016 5:47 PM This code status was determined by: Patient
[2019-04-28] MEDS ORDERED: CEFTRIAXONE 1000 MG/VIAL ONE (19:37)
[2019-04-28] MEDS ORDERED: LIDOCAINE 1% MPF 2 ML AMPULE ONE (19:37)
--- NOTE | 2019-04-28 19:39 | EDPHYS ---
Physician Documentation [facility] Name: Wendi Norton Age: 53 yrs Sex: Female : 1965 Arrival Date: 04/28/2019 Time: 18:52 Bed 24 Private MD: ED Physician Cam Zambrano HPI: 04/28 19:37 This 53 yrs old Female presents to ER via Ambulatory with complaints of ma2 Infection under arms. 19:37 The rash is located on the. Onset: The symptoms/episode began/occurred gradually, 2 ma2 month(s) ago. Associated signs and symptoms: Pertinent negatives: None. Pain swelling of lips, swelling of tongue. Severity of symptoms: At their worst the symptoms were mild in the emergency department the symptoms are unchanged. The patient has experienced similar episodes in the past. 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 - Social history:: Smoking status: Patient uses tobacco products, smokes one-half pack cigarettes per day, Patient/guardian denies using alcohol, street drugs, The patient lives with family. - Ebola Screening: : Patient negative for fever greater than or equal to 101.5 degrees Fahrenheit, and additional compatible Ebola Virus Disease symptoms. - Family history:: not pertinent. ROS: 19:37 Constitutional: Negative for fever, chills, and weight loss. ma2 19:37 Skin: Positive for rash, Negative for cellulitis, erythema, hematoma. 19:37 All other systems are negative. Exam: 19:37 Constitutional: This is a well developed, well nourished patient who is awake, alert, ma2 and in no acute distress. Chest/axilla: Normal chest wall appearance and motion. Nontender with no deformity. No lesions are appreciated. Cardiovascular: Regular rate and rhythm with a normal S1 and S2. No gallops, murmurs, or rubs. Normal PMI, no JVD. No pulse deficits. Respiratory: Lungs have equal breath sounds bilaterally, clear to auscultation and percussion. No rales, rhonchi or wheezes noted. No increased work of breathing, no retractions or nasal flaring. Abdomen/GI: Soft, non-tender, with normal bowel sounds. No distension or tympany. No guarding or rebound. No evidence of tenderness throughout. Back: No spinal tenderness. No costovertebral tenderness. Full range of motion. 19:37 Skin: no rash present. rash a mild rash is noted, underarm redness , no induration or tenderness no abscess . Vital Signs: 19:10 BP 144 / 72; Pulse 108; Resp 19 S; Temp 98.7(O); Pulse Ox 95% on R/A; Weight 95.25 kg jd3 (R); Height 5 ft. 4 in. (162.56 cm) (R); Pain 0/10; 19:10 Body Mass Index 36.05 (95.25 kg, 162.56 cm) jd3 MDM: 19:06 Patient medically screened. ma2 19:37 Differential diagnosis: varicella, allergic reaction, parasite infection, carcinoma. ma2 Data reviewed: vital signs, nurses notes. Counseling: I had a detailed discussion with the patient and/or guardian regarding: the historical points, exam findings, and any diagnostic results supporting the discharge/admit diagnosis, the presence of at least one elevated blood pressure reading (>120/80) during this emergency department visit, the need for outpatient follow up. Medical screen evaluation completed. EMTALA emergency medical condition absent. 04/28 19:21 Order name: Glucose, Ancillary Testing EDMS Administered Medications: 19:27 Drug: Rocephin (cefTRIAXone) 1 grams Route: IM; Site: left gluteus; ca1 19:47 Follow up: Response: No adverse reaction; No change in condition ca1 Point of Care Testing: Blood Glucose: 19:20 Blood Glucose: 134 mg/dL; ca1 Ranges: Critical Glucose Levels:Adult <50 mg/dl or >400 mg/dl <40 mg/dl or >180 mg/dl Disposition: 04/28/19 19:39 Discharged to Home. Impression: Candidiasis. - Condition is Stable. - Discharge Instructions: Rash. - Prescriptions for Nystatin- Triamcinolone 100,000-0.1 unit/g-% Topical Cream - apply 1 application by TOPICAL route 2 times per day; 1 tube. - Medication Reconciliation Form, Thank You Letter, Antibiotic Education, Prescription Opioid Use form. - Follow up: Private Physician; When: Tomorrow; Reason: Continuance of care. Signatures: Eduin Nuno RN RN jd3 Cam Zambrano MD MD ma2 Betty Aponte RN RN ca1 Corrections: (The following items were deleted from the chart) 19:48 19:39 04/28/2019 19:39 Discharged to Home. Impression: Candidiasis. Condition is ca1 Stable. Forms are Medication Reconciliation Form, Thank You Letter, Antibiotic Education, Prescription Opioid Use. Follow up: Private Physician; When: Tomorrow; Reason: Continuance of care. ma2
--- NOTE | 2019-04-28 19:39 | ER ---
Nurse's Notes [facility] Name: Wendi Norton Age: 53 yrs Sex: Female : 1965 Arrival Date: 04/28/2019 Time: 18:52 Bed 24 Private MD: Diagnosis: Candidiasis Presentation: 04/28 19:06 Presenting complaint: Patient states: "I think I might have an infection under both my jd3 arms. I also am noticing some skin breakdown under my breasts. Also my gums might have a problem because I recently lost 2 teeth for no reason. and I also have been having swelling in my knees.". Transition of care: patient was not received from another setting of care. Onset of symptoms was April 28, 2019. Risk Assessment: Do you want to hurt yourself or someone else? Patient reports no desire to harm self or others. Initial Sepsis Screen: Does the patient meet any 2 criteria? HR > 90 bpm. No. Patient's initial sepsis screen is negative. Does the patient have a suspected source of infection? No. Patient's initial sepsis screen is negative. Care prior to arrival: None. 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 - Social history:: Smoking status: Patient uses tobacco products, smokes one-half pack cigarettes per day, Patient/guardian denies using alcohol, street drugs, The patient lives with family. - Ebola Screening: : Patient negative for fever greater than or equal to 101.5 degrees Fahrenheit, and additional compatible Ebola Virus Disease symptoms. - Family history:: not pertinent. Screenin:12 Abuse screen: Denies threats or abuse. Denies injuries from another. Nutritional ca1 screening: No deficits noted. Tuberculosis screening: No symptoms or risk factors identified. Fall Risk None identified. Assessment: 19:12 General: Appears in no apparent distress. comfortable, Behavior is calm, cooperative, ca1 appropriate for age. Pain: Denies pain. Neuro: Level of Consciousness is awake, alert, obeys commands, Oriented to person, place, time, situation. Derm: Skin is intact, is healthy with good turgor, Skin is pink, warm \\T\\ dry. redness under both underarm. Pt reports foul smell from it as well as under the creases of the breasts. No redness seen under the breasrs. Musculoskeletal: Circulation, motion, and sensation intact. Capillary refill < 3 seconds, Range of motion: intact in all extremities. 19:40 Reassessment: Patient appears in no apparent distress at this time. Patient is alert, ca1 oriented x 3, equal unlabored respirations, skin warm/dry/pink. Vital Signs: 19:10 BP 144 / 72; Pulse 108; Resp 19 S; Temp 98.7(O); Pulse Ox 95% on R/A; Weight 95.25 kg jd3 (R); Height 5 ft. 4 in. (162.56 cm) (R); Pain 0/10; 19:10 Body Mass Index 36.05 (95.25 kg, 162.56 cm) jd3 ED Course: 18:52 Patient arrived in ED. mr 18:53 Betty Aponte, KEYUR is Primary Nurse. ca1 19:06 Cam Zambrano MD is Attending Physician. ma2 19:08 Triage completed. jd3 19:10 Arm band placed on. jd3 19:12 Patient has correct armband on for positive identification. Placed in gown. Bed in low ca1 position. Call light in reach. Side rails up X 1. Pulse ox on. NIBP on. Warm blanket given. 19:12 No provider procedures requiring assistance completed. Patient did not have IV access ca1 during this emergency room visit. Administered Medications: 19:27 Drug: Rocephin (cefTRIAXone) 1 grams Route: IM; Site: left gluteus; ca1 19:47 Follow up: Response: No adverse reaction; No change in condition ca1 Point of Care Testing: Blood Glucose: 19:20 Blood Glucose: 134 mg/dL; ca1 Ranges: Outcome: 19:39 Discharge ordered by . kofi 19:40 Discharged to home ambulatory. ca1 19:40 Condition: stable 19:40 Discharge instructions given to patient, Instructed on discharge instructions, follow up and referral plans. medication usage, Demonstrated understanding of instructions, follow-up care, medications, Prescriptions given X 1. 19:48 Patient left the ED. ca1 Signatures: Charisse Arora NurysEduin RN RN jd3 Cam Zambrano MD MD ma2 Acob, Cheryl, RN RN ca1
[2019-04-28 20:40] VITALS: BP 144/72; TEMP 98.7; O2SAT 95
== END 2019-04-28 19:48 | disposition home or self-care (01) ==
LOC: ER 18:49
DX: B37.2 Candidiasis of skin and nail (principal); J45.909 Unspecified asthma, uncomplicated; F31.9 Bipolar disorder, unspecified; Z85.3 Personal history of malignant neoplasm of breast; J44.9 Chronic obstructive pulmonary disease, unspecified; F32.9 Major depressive disorder, single episode, unspecified; E11.9 Type 2 diabetes mellitus without complications; F17.210 Nicotine dependence, cigarettes, uncomplicated
CPT/HCPCS: 82962; 96372; 99283; J2001

== ENCOUNTER 2019-07-03 15:12 | Emergency (ER) | payer OTHER ==
--- OUTSIDE RECORDS SUMMARY | 2019-07-03 15:21 | XMS REPORT ---
:1965 Author Organization [facility] Address [address] [place] [address] Dr. Baker [address] [place] [id number] Care Team Providers Name Role Phone MARKO [...] send to the Main Lab for Analysis. [id number] 08:15:00 Test Item Value Reference Range Comments [place] (test code=LI) 0.44 mmol/L 0.6-1.2 POC Glucose, [id number] 05:37:00 Test Item Value Reference Range Comments POC Glucose (test 134 mg/dL 70-115 If you consider your patient code=POCGLUC) critically ill, the Moira Accu-Chek InformII metershould not be used for Glucose determinations.Draw a venous Glucose and send to the Main Lab for Analysis. POC Glucose, [id number] 07:28:00 Test Item Value Reference Range Comments POC Glucose (test 128 mg/dL 70-115 If you consider your patient code=POCGLUC) critically ill, the [place] Accu-Chek InformII metershould not be used for Glucose determinations.Draw a venous Glucose and send to the Main Lab for Analysis. POC Glucose, [id number] 20:18:00 Test Item Value Reference Range Comments POC Glucose (test 121 mg/dL 70-115 If you consider your patient code=POCGLUC) critically ill, the [place] Accu-Chek InformII metershould not be used for Glucose determinations.Draw a venous Glucose and send to the Main Lab for Analysis. BHCG, Serum, [id number] 22:36:00 Test Item Value Reference Range Comments Preg Qual [Se] (test code=BSHCG) Negative Negative POC Glucose, [id number] 15:14:00 Test Item Value Reference Range Comments POC Glucose (test 117 mg/dL 70-115 If you consider your patient code=POCGLUC) critically ill, the [place]ira Accu-Chek InformII metershould not be used for Glucose determinations.Draw a venous Glucose and send to the Main Lab for Analysis.
--- OUTSIDE RECORDS SUMMARY | 2019-07-03 15:21 | XMS REPORT | Clinical Summary ---
:1965 Author Organization [facility] Address [address] [place] [address] Care Team Providers Name Role Phone Unavailable [...] Not on file Results Not on fileafter 07/02/2018 Insurance Payer Benefit Plan / Group Subscriber ID Type Phone Address MEDICARE MEDICARE A B xxxxxxxxxx Medicare MEDICAID MEDICAID [facility] xxxxxxxxx Medicaid Advance Directives For more information, please contact:[place] [phone] [facility] [place], [place] [phone] Code Status Date Activated Date Inactivated Comments Full Code 04/22/2016 12:20 PM 04/29/2016 5:47 PM This code status was determined by: Patient
[2019-07-03] MEDS ORDERED: CODEINE 30MG/APAP 300MG TAB ONE ×2 (16:33→16:41)
--- NOTE | 2019-07-03 16:36 | EDPHYS ---
Physician Documentation [facility] Name: Wendi Norton Age: 53 yrs Sex: Female : 1965 Arrival Date: 07/03/2019 Time: 15:15 Bed 18 Private MD: ED Physician Donavan Hawley HPI: 07/03 16:32 This 53 yrs old Female presents to ER via Ambulatory with complaints of shefali Medication Refill. 16:32 The patient presents to the emergency department requesting refill(s) for: Klonopin, shefali Tylenol #3, SEROQUEL. The patient has experienced similar episodes in the past, a few times. 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 jl7 Historical: - Allergies: 15:16 NKDA; hj - Home Meds: 16:39 Adderall XR Oral 1 cap once daily [Active]; clonazepam 2 mg Oral tab 1 tab 2 times per jl7 day [Active]; fluoxetine 40 mg Oral cap 1 cap once daily [Active]; lithium carbonate 300 mg Oral cpER 1 tab 2 times per day [Active]; quetiapine 300 mg Oral tab 2 tabs nightly [Active]; Tylenol #3 Oral [Active]; - PMHx: 15:16 Asthma; Bipolar disorder; breast cancer- in remission; COPD; Depression; Diabetes - hj NIDDM; Diverticulitis; Hepatitis; PTSD; 16:39 Pain Management; jl7 - PSHx: 15:16 None; hj - Immunization history:: Adult Immunizations unknown. - Social history:: Smoking status: unknown. - Ebola Screening: : No symptoms or risks identified at this time. ROS: 16:33 Constitutional: Negative for fever, chills, and weight loss, Eyes: Negative for injury, shefali pain, redness, and discharge, ENT: Negative for injury, pain, and discharge, Neck: Negative for injury, pain, and swelling, Cardiovascular: Negative for chest pain, palpitations, and edema, Respiratory: Negative for shortness of breath, cough, wheezing, and pleuritic chest pain, Abdomen/GI: Negative for abdominal pain, nausea, vomiting, diarrhea, and constipation, Back: Negative for injury and pain, : Negative for injury, bleeding, discharge, and swelling, MS/Extremity: Negative for injury and deformity, Skin: Negative for injury, rash, and discoloration, Psych: Negative for depression, anxiety, suicide ideation, homicidal ideation, and hallucinations, Allergy/Immunology: Negative for hives, rash, and allergies, Endocrine: Negative for neck swelling, polydipsia, polyuria, polyphagia, and marked weight changes, Hematologic/Lymphatic: Negative for swollen nodes, abnormal bleeding, and unusual bruising. 16:33 Neuro: Negative for headache, weakness, numbness, tingling, and seizure. 16:33 Neuro: Exam: 16:34 Constitutional: This is a well developed, well nourished patient who is awake, alert, shefali and in no acute distress. Head/Face: Normocephalic, atraumatic. Eyes: Pupils equal round and reactive to light, extra-ocular motions intact. Lids and lashes normal. Conjunctiva and sclera are non-icteric and not injected. Cornea within normal limits. Periorbital areas with no swelling, redness, or edema. ENT: Nares patent. No nasal discharge, no septal abnormalities noted. Tympanic membranes are normal and external auditory canals are clear. Oropharynx with no redness, swelling, or masses, exudates, or evidence of obstruction, uvula midline. Mucous membranes moist. Neck: Trachea midline, no thyromegaly or masses palpated, and no cervical lymphadenopathy. Supple, full range of motion without nuchal rigidity, or vertebral point tenderness. No Meningismus. Chest/axilla: Normal chest wall appearance and motion. Nontender with no deformity. No lesions are appreciated. Cardiovascular: Regular rate and rhythm with a normal S1 and S2. No gallops, murmurs, or rubs. Normal PMI, no JVD. No pulse deficits. Respiratory: Lungs have equal breath sounds bilaterally, clear to auscultation and percussion. No rales, rhonchi or wheezes noted. No increased work of breathing, no retractions or nasal flaring. Abdomen/GI: Soft, non-tender, with normal bowel sounds. No distension or tympany. No guarding or rebound. No evidence of tenderness throughout. Back: No spinal tenderness. No costovertebral tenderness. Full range of motion. Female : Normal external genitalia. Skin: Warm, dry with normal turgor. Normal color with no rashes, no lesions, and no evidence of cellulitis. MS/ Extremity: Pulses equal, no cyanosis. Neurovascular intact. Full, normal range of motion. Neuro: Awake and alert, GCS 15, oriented to person, place, time, and situation. Cranial nerves II-XII grossly intact. Motor strength 5/5 in all extremities. Sensory grossly intact. Cerebellar exam normal. Normal gait. Psych: Awake, alert, with orientation to person, place and time. Behavior, mood, and affect are within normal limits. Vital Signs: 15:18 BP 124 / 72; Pulse 98; Resp 18; Temp 99.0(O); Pulse Ox 97% on R/A; Weight 90.72 kg; hj Height 5 ft. 4 in. (162.56 cm); Pain 10/10; 16:45 BP 125 / 75; Pulse 95; Resp 18 S; Pulse Ox 97% on R/A; jl7 15:18 Body Mass Index 34.33 (90.72 kg, 162.56 cm) hj MDM: 15:22 Patient medically screened. shefali Administered Medications: 16:35 Drug: Tylenol #3 (300 mg-30 mg) 2 tabs Route: PO; jl7 16:40 Follow up: Response: Medication administered at discharge. jl7 Disposition: 07/03/19 16:35 Discharged to Home. Impression: Bipolar disorder, Encounter for issue of repeat prescription. - Condition is Stable. - Discharge Instructions: Medicine Refill at the Emergency Department. - Prescriptions for Seroquel 300 mg Oral tablet - take 2 tablet by ORAL route At bedtime; 30 tablet. Klonopin 1 mg Oral Tablet - take 2 tablet by ORAL route every 12 hours As needed; 30 tablet. Tylenol- Codeine #3 300-30 mg Oral Tablet - take 2 tablet by ORAL route every 6 hours As needed; 30 tablet. - Medication Reconciliation Form, Thank You Letter, Antibiotic Education, Prescription Opioid Use form. - Follow up: Private Physician; When: 2 - 3 days; Reason: Recheck today's complaints, Continuance of care, Re-evaluation by your physician. - Problem is new. - Symptoms have improved. Signatures: Donavan Hawley MD MD cha Joaquin, Henry RN RN Robert Cleary RN RN jl7 Corrections: (The following items were deleted from the chart) 16:47 16:35 07/03/2019 16:35 Discharged to Home. Impression: Bipolar disorder; Encounter for jl7 issue of repeat prescription. Condition is Stable. Forms are Medication Reconciliation Form, Thank You Letter, Antibiotic Education, Prescription Opioid Use. Follow up: Private Physician; When: 2 - 3 days; Reason: Recheck today's complaints, Continuance of care, Re-evaluation by your physician. Problem is new. Symptoms have improved. shefali
--- NOTE | 2019-07-03 16:36 | ER ---
Nurse's Notes [facility] Name: Wendi Norton Age: 53 yrs Sex: Female : 1965 Arrival Date: 07/03/2019 Time: 15:15 Bed 18 Private MD: Diagnosis: Bipolar disorder;Encounter for issue of repeat prescription Presentation: 07/03 15:16 Presenting complaint: Patient states: i miss my psych appointment and i couldn't get an hj appointment until a malia, i need a refill for my Klonopin and Tylenol codeine #3 and Adderall;. Transition of care: patient was not received from another setting of care. Onset of symptoms was July 03, 2019. Risk Assessment: Do you want to hurt yourself or someone else? Patient reports no desire to harm self or others. Initial Sepsis Screen: Does the patient meet any 2 criteria? No. Patient's initial sepsis screen is negative. Does the patient have a suspected source of infection? No. Patient's initial sepsis screen is negative. Care prior to arrival: None. 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 jl7 Historical: - Allergies: 15:16 NKDA; - Home Meds: 16:39 Adderall XR Oral 1 cap once daily [Active]; clonazepam 2 mg Oral tab 1 tab 2 times per jl7 day [Active]; fluoxetine 40 mg Oral cap 1 cap once daily [Active]; lithium carbonate 300 mg Oral cpER 1 tab 2 times per day [Active]; quetiapine 300 mg Oral tab 2 tabs nightly [Active]; Tylenol #3 Oral [Active]; - PMHx: 15:16 Asthma; Bipolar disorder; breast cancer- in remission; COPD; Depression; Diabetes - NIDDM; Diverticulitis; Hepatitis; PTSD; 16:39 Pain Management; jl7 - PSHx: 15:16 None; hj - Immunization history:: Adult Immunizations unknown. - Social history:: Smoking status: unknown. - Ebola Screening: : No symptoms or risks identified at this time. Screenin:00 Abuse screen: Denies threats or abuse. Denies injuries from another. Nutritional jl7 screening: No deficits noted. Tuberculosis screening: No symptoms or risk factors identified. Fall Risk None identified. Assessment: 16:00 General: Appears in no apparent distress. uncomfortable, Behavior is calm, cooperative, jl7 appropriate for age. Pain: Complains of pain in right wrist Pain currently is 10 out of 10 on a pain scale. Quality of pain is described as aching, Pain began years ago. Is continuous. Neuro: Level of Consciousness is awake, alert, obeys commands, Oriented to person, place, time, situation. Cardiovascular: Patient's skin is warm and dry. Respiratory: Airway is patent Respiratory effort is even, unlabored, Respiratory pattern is regular, symmetrical. Derm: Skin is pink, warm \T\ dry. Musculoskeletal: Range of motion: intact in all extremities. Vital Signs: 15:18 BP 124 / 72; Pulse 98; Resp 18; Temp 99.0(O); Pulse Ox 97% on R/A; Weight 90.72 kg; hj Height 5 ft. 4 in. (162.56 cm); Pain 10/10; 16:45 BP 125 / 75; Pulse 95; Resp 18 S; Pulse Ox 97% on R/A; jl7 15:18 Body Mass Index 34.33 (90.72 kg, 162.56 cm) ED Course: 15:15 Patient arrived in ED. 15:16 Arm band placed on. 15:18 Triage completed. 15:22 Donavan Hawley MD is Attending Physician. [facility] 15:53 Robert Cleary, KEYUR is Primary Nurse. jl7 16:00 Patient has correct armband on for positive identification. Bed in low position. Call jl7 light in reach. Side rails up X 1. 16:40 No provider procedures requiring assistance completed. Patient did not have IV access jl7 during this emergency room visit. Administered Medications: 16:35 Drug: Tylenol #3 (300 mg-30 mg) 2 tabs Route: PO; jl7 16:40 Follow up: Response: Medication administered at discharge. jl7 Outcome: 16:35 Discharge ordered by . [facility] 16:46 Discharged to home ambulatory. jl7 16:46 Condition: stable 16:46 Discharge instructions given to patient, Instructed on discharge instructions, follow up and referral plans. medication usage, Demonstrated understanding of instructions, follow-up care, medications, Prescriptions given X 3. 16:47 Patient left the ED. jl7 Signatures: Donavan Hawley MD MD cha Joaquin, Henry, RN RN hj Robert Cleary RN RN jl7 Corrections: (The following items were deleted from the chart) 15:21 15:18 Pulse 98bpm; Resp 18bpm; Pulse Ox 97% RA; Temp 99.0F Oral; 90.72 kg; Height 5 ft. hj 4 in.; BMI: 34.3; Pain 10/10; hj
[2019-07-03 17:10] VITALS: BP 125/75; O2SAT 97
[2019-07-03 17:11] VITALS: TEMP 99
== END 2019-07-03 16:47 | disposition home or self-care (01) ==
LOC: ER 15:12
DX: F31.9 Bipolar disorder, unspecified (principal); F32.9 Major depressive disorder, single episode, unspecified; E11.9 Type 2 diabetes mellitus without complications; F43.10 Post-traumatic stress disorder, unspecified; Z85.3 Personal history of malignant neoplasm of breast
CPT/HCPCS: 99283

== ENCOUNTER 2019-08-27 18:34 | Emergency (ER) | payer OTHER ==
[2019-08-27] MEDS ORDERED: dexAMETHasone 10 MG/ML VIAL ONE (19:10)
[2019-08-27] MEDS ORDERED: GABAPENTIN 300 MG CAP ONE (19:10)
[2019-08-27] MEDS ORDERED: IBUPROFEN 400 MG TAB ONE (19:11)
--- NOTE | 2019-08-27 19:42 | ER ---
Nurse's Notes [facility] Name: Wendi Norton Age: 54 yrs Sex: Female : 1965 Arrival Date: 08/27/2019 Time: 18:36 Bed 6 Private MD: Unknown, Unknown Diagnosis: Paresthesia of skin Presentation: 08/27 18:38 Presenting complaint: Numbness and tingling of bilateral arms and sore throat x 3 days. hb VAN NEGATIVE. Transition of care: patient was not received from another setting of care. Onset of symptoms was August 25, 2019. Risk Assessment: Do you want to hurt yourself or someone else? Patient reports no desire to harm self or others. Initial Sepsis Screen: Does the patient meet any 2 criteria? No. Patient's initial sepsis screen is negative. Does the patient have a suspected source of infection? No. Patient's initial sepsis screen is negative. Care prior to arrival: None. 18:38 Method Of Arrival: Ambulatory hb 18:38 Acuity: RAUL 3 hb Historical: - Allergies: 18:40 NKDA; hb - Immunization history:: Adult Immunizations up to date. - Social history:: Smoking status: Patient uses tobacco products, denies chronic smoking, but will smoke occasionally. - Ebola Screening: : No symptoms or risks identified at this time. Screenin:22 Abuse screen: Denies threats or abuse. Nutritional screening: No deficits noted. ea Tuberculosis screening: No symptoms or risk factors identified. Fall Risk None identified. Assessment: 19:21 General: Appears in no apparent distress. Behavior is calm, cooperative, appropriate ea for age. Pain: Complains of pain in right hand. Neuro: Level of Consciousness is awake, alert, obeys commands, Oriented to person, place, time, situation. Cardiovascular: Patient's skin is warm and dry. Respiratory: Airway is patent Respiratory effort is even, unlabored, Respiratory pattern is regular, symmetrical. Derm: Skin is pink, warm \T\ dry. Musculoskeletal: Circulation, motion, and sensation intact. 19:49 Reassessment: Patient and/or family updated on plan of care and expected duration. Pain ea level reassessed. Patient is alert, oriented x 3, equal unlabored respirations, skin warm/dry/pink. Discharge instruction given to patient, verbalized the understanding of instruction. Pt awaiting for to be discharged. Ambulated to husbands room, tolerating well. Vital Signs: 18:40 BP 173 / 83; Pulse 88; Resp 16; Temp 98.1; Pulse Ox 100% on R/A; Weight 90.72 kg; hb Height 5 ft. 4 in. (162.56 cm); Pain 9/10; 19:30 BP 150 / 82; Pulse 90; Resp 18; Pulse Ox 98% ; ea 18:40 Body Mass Index 34.33 (90.72 kg, 162.56 cm) hb ED Course: 18:36 Patient arrived in ED. ag5 18:36 Unknown, Unknown is Private Physician. ag5 18:40 Triage completed. hb 18:40 Arm band placed on left wrist. 18:49 [email or web address]] 18:49 Cornelius Vyas MD is Attending Physician. jr8 19:01 Akua Simons, RN is Primary Nurse. ea 19:22 Patient has correct armband on for positive identification. Bed in low position. Call ea light in reach. 19:51 No provider procedures requiring assistance completed. Patient did not have IV access ea during this emergency room visit. Administered Medications: 19:21 Drug: Motrin 800 mg Route: PO; ea 19:53 Follow up: Response: No adverse reaction ea 19:21 Drug: Decadron 10 mg Route: IM; Site: right deltoid; ea 19:53 Follow up: Response: No adverse reaction ea 19:21 Drug: Gabapentin 600 mg Route: PO; ea 19:53 Follow up: Response: No adverse reaction ea Outcome: 19:42 Discharge ordered by . [facility] [[email or web address]] 19:51 Discharged to Pt awaiting for to be discharged ea 19:51 Condition: stable 19:51 Discharge instructions given to patient, Instructed on discharge instructions, follow up and referral plans. medication usage, Demonstrated understanding of instructions, follow-up care, medications, Prescriptions given X 1. 19:52 Patient left the ED. ea Signatures: Alphonso Simeon PA PA [facility] [[email or web address]] Melody Montejo, RN KEYUR Akua Simons, KEYUR RN Angela Astorga 5
--- NOTE | 2019-08-27 19:42 | EDPHYS ---
Physician Documentation [facility] Name: Wendi Norton Age: 54 yrs Sex: Female : 1965 Arrival Date: 08/27/2019 Time: 18:36 Bed 6 Private MD: Unknown, Unknown ED Physician Cornelius Vyas HPI: 08/27 19:26 This 54 yrs old Female presents to ER via Ambulatory with complaints of jr8 Numbness Of Hand, Numbness Of Arm. 19:26 Pt reports MARQUIS tingling in pain in MARQUIS arms from shoulder to hand, has chronic back jr8 issues and states that her mom took her pills and threw then away. States she sees pain management and missed her appointment. no focal neurological deficits. Historical: - Allergies: 18:40 NKDA; hb - Immunization history:: Adult Immunizations up to date. - Social history:: Smoking status: Patient uses tobacco products, denies chronic smoking, but will smoke occasionally. - Ebola Screening: : No symptoms or risks identified at this time. ROS: 19:27 Constitutional: Negative for fever, chills, and weight loss, Eyes: Negative for injury, jr8 pain, redness, and discharge, ENT: Negative for injury, pain, and discharge, Neck: Negative for injury, pain, and swelling, Cardiovascular: Negative for chest pain, palpitations, and edema, Respiratory: Negative for shortness of breath, cough, wheezing, and pleuritic chest pain, Abdomen/GI: Negative for abdominal pain, nausea, vomiting, diarrhea, and constipation, Back: Negative for injury and pain, Skin: Negative for injury, rash, and discoloration, Neuro: Negative for headache, weakness, numbness, tingling, and seizure. 19:27 MS/extremity: Positive for pain, of the right arm and left arm. Exam: 19:27 Constitutional: This is a well developed, well nourished patient who is awake, alert, jr8 and in no acute distress. Head/Face: Normocephalic, atraumatic. Eyes: Pupils equal round and reactive to light, extra-ocular motions intact. Lids and lashes normal. Conjunctiva and sclera are non-icteric and not injected. Cornea within normal limits. Periorbital areas with no swelling, redness, or edema. ENT: Nares patent. No nasal discharge, no septal abnormalities noted. Tympanic membranes are normal and external auditory canals are clear. Oropharynx with no redness, swelling, or masses, exudates, or evidence of obstruction, uvula midline. Mucous membranes moist. Neck: Trachea midline, no thyromegaly or masses palpated, and no cervical lymphadenopathy. Supple, full range of motion without nuchal rigidity, or vertebral point tenderness. No Meningismus. Chest/axilla: Normal chest wall appearance and motion. Nontender with no deformity. No lesions are appreciated. Cardiovascular: Regular rate and rhythm with a normal S1 and S2. No gallops, murmurs, or rubs. Normal PMI, no JVD. No pulse deficits. Respiratory: Lungs have equal breath sounds bilaterally, clear to auscultation and percussion. No rales, rhonchi or wheezes noted. No increased work of breathing, no retractions or nasal flaring. Abdomen/GI: Soft, non-tender, with normal bowel sounds. No distension or tympany. No guarding or rebound. No evidence of tenderness throughout. Skin: Warm, dry with normal turgor. Normal color with no rashes, no lesions, and no evidence of cellulitis. MS/ Extremity: Pulses equal, no cyanosis. Neurovascular intact. Full, normal range of motion. Neuro: Awake and alert, GCS 15, oriented to person, place, time, and situation. Cranial nerves II-XII grossly intact. Motor strength 5/5 in all extremities. Sensory grossly intact. Cerebellar exam normal. Normal gait. 19:27 Neuro: Cranial nerves: CN II- XII are normal as tested, Cerebellar function: is grossly normal, Motor: is normal, Sensation: tingling, that is mild, of the right arm and left arm. Vital Signs: 18:40 BP 173 / 83; Pulse 88; Resp 16; Temp 98.1; Pulse Ox 100% on R/A; Weight 90.72 kg; hb Height 5 ft. 4 in. (162.56 cm); Pain 9/10; 19:30 BP 150 / 82; Pulse 90; Resp 18; Pulse Ox 98% ; ea 18:40 Body Mass Index 34.33 (90.72 kg, 162.56 cm) hb MDM: 18:49 Patient medically screened. jr8 19:42 Data reviewed: vital signs, nurses notes. 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 Administered Medications: 19:21 Drug: Motrin 800 mg Route: PO; ea 19:53 Follow up: Response: No adverse reaction ea 19:21 Drug: Decadron 10 mg Route: IM; Site: right deltoid; ea :53 Follow up: Response: No adverse reaction ea 19: Drug: Gabapentin 600 mg Route: PO; ea 19:53 Follow up: Response: No adverse reaction ea Disposition: 08/27/19 19:42 Discharged to Home. Impression: Paresthesia of skin. - Condition is Stable. - Discharge Instructions: Paresthesia, Peripheral Neuropathy. - Prescriptions for Ibuprofen 800 mg Oral Tablet - take 1 tablet by ORAL route every 8 hours As needed take with food; 20 tablet. - Medication Reconciliation Form, Thank You Letter form. - Follow up: Private Physician; When: 2 - 3 days; Reason: Recheck today's complaints, Re-evaluation by your physician. - Problem is new. - Symptoms have improved. Signatures: Alphonso Simeon PA PA jr8 Melody Montejo, RN RN Akua Dumont RN RN ea Corrections: (The following items were deleted from the chart) 19:52 19:42 08/27/2019 19:42 Discharged to Home. Impression: Paresthesia of skin. Condition ea is Stable. Forms are Medication Reconciliation Form, Thank You Letter, Antibiotic Education, Prescription Opioid Use. Follow up: Private Physician; When: 2 - 3 days; Reason: Recheck today's complaints, Re-evaluation by your physician. Problem is new. Symptoms have improved. twyla
[2019-08-27 19:58] VITALS: TEMP 98.1
[2019-08-27 20:00] VITALS: BP 150/82; O2SAT 98
== END 2019-08-27 19:52 | disposition home or self-care (01) ==
LOC: ER 18:34
DX: R20.2 Paresthesia of skin (principal); Z72.0 Tobacco use
CPT/HCPCS: 96372; 99283; J1100

== ENCOUNTER 2019-12-16 10:47 | Emergency (ER) | payer OTHER ==
--- OUTSIDE RECORDS SUMMARY | 2019-12-16 10:50 | XMS REPORT ---
:1965 Author Organization [facility] Address [address] [place] [address] Dr. Baker [address] [place] [id number] Care Team Providers Name Role Phone MARKO [...] send to the Main Lab for Analysis. [id number] 08:15:00 Test Item Value Reference Range Comments [place] (test code=LI) 0.44 mmol/L 0.6-1.2 POC Glucose, [id number] 05:37:00 Test Item Value Reference Range Comments POC Glucose (test 134 mg/dL 70-115 If you consider your patient code=POCGLUC) critically ill, the Moira Accu-Chek InformII metershould not be used for Glucose determinations.Draw a venous Glucose and send to the Main Lab for Analysis. POC Glucose, [id number] 07:28:00 Test Item Value Reference Range Comments POC Glucose (test 128 mg/dL 70-115 If you consider your patient code=POCGLUC) critically ill, the Moira Accu-Chek InformII metershould not be used for Glucose determinations.Draw a venous Glucose and send to the Main Lab for Analysis. POC Glucose, [id number] 20:18:00 Test Item Value Reference Range Comments POC Glucose (test 121 mg/dL 70-115 If you consider your patient code=POCGLUC) critically ill, the [place]ira Accu-Chek InformII metershould not be used for Glucose determinations.Draw a venous Glucose and send to the Main Lab for Analysis. BHCG, Serum, [id number] 22:36:00 Test Item Value Reference Range Comments Preg Qual [Se] (test code=BSHCG) Negative Negative POC Glucose, [id number] 15:14:00 Test Item Value Reference Range Comments POC Glucose (test 117 mg/dL 70-115 If you consider your patient code=POCGLUC) critically ill, the Moira Accu-Chek InformII metershould not be used for Glucose determinations.Draw a venous Glucose and send to the Main Lab for Analysis.
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
--- NOTE | 2019-12-16 11:47 | ER ---
Nurse's Notes [facility] Name: Wendi Norton Age: 54 yrs Sex: Female : 1965 Arrival Date: 12/16/2019 Time: 10:49 Bed 6 Private MD: Diagnosis: Radiculopathy, cervical region;Paresthesia of skin Presentation: 12/16 11:08 Presenting complaint: Patient states: arms are so sore and tingly and so is the right iw side of my body, started 2 days ago, happened about a month ago, was given a shot and medications that helped. Transition of care: patient was not received from another setting of care. Onset of symptoms was December 14, 2019. Risk Assessment: Do you want to hurt yourself or someone else? Patient reports no desire to harm self or others. Initial Sepsis Screen: Does the patient meet any 2 criteria? No. Patient's initial sepsis screen is negative. Does the patient have a suspected source of infection? No. Patient's initial sepsis screen is negative. Care prior to arrival: None. 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 - Coronavirus screen:: The patient has NOT traveled to [place], [place], or [place] in the past 14 days. Proceed with normal triage process as indicated. - Social history:: Smoking status: Patient reports the use of cigarette tobacco products, smokes one-half pack cigarettes per day. - Family history:: not pertinent. - Ebola Screening: : Patient negative for fever greater than or equal to 101.5 degrees Fahrenheit, and additional compatible Ebola Virus Disease symptoms Patient denies exposure to infectious person Patient denies travel to an Ebola-affected area in the 21 days before illness onset No symptoms or risks identified at this time. - Hospitalizations: : No recent hospitalization is reported. Screenin:30 Abuse screen: Denies threats or abuse. Denies injuries from another. Nutritional hb screening: No deficits noted. Tuberculosis screening: No symptoms or risk factors identified. Fall Risk None identified. Assessment: 11:30 General: Appears in no apparent distress. Behavior is calm, cooperative. Pain: Pain hb currently is 7 out of 10 on a pain scale. Neuro: Level of Consciousness is awake, alert, obeys commands, Oriented to person, place, time, situation, Reports chronic numbness and pain in right arm. Cardiovascular: Heart tones S1 S2 present Capillary refill < 3 seconds Patient's skin is warm and dry. Respiratory: Airway is patent Respiratory effort is even, unlabored, Respiratory pattern is regular, symmetrical. GI: No signs and/or symptoms were reported involving the gastrointestinal system. : No signs and/or symptoms were reported regarding the genitourinary system. EENT: No signs and/or symptoms were reported regarding the EENT system. Derm: Skin is intact, is healthy with good turgor. Musculoskeletal: Reports numbness and pain in right arm. Vital Signs: 11:11 BP 93 / 61; Pulse 96; Resp 16; Temp 98.4; Pulse Ox 97% on R/A; Weight 90.72 kg; Height iw 5 ft. 4 in. (162.56 cm); Pain 9/10; 11:11 Body Mass Index 34.33 (90.72 kg, 162.56 cm) iw ED Course: 10:49 Patient arrived in ED. as 11:10 Triage completed. iw 11:11 Arm band placed on. iw 11:22 Gato Smart MD is Attending Physician. rn 11:30 Patient has correct armband on for positive identification. Bed in low position. Call hb light in reach. Side rails up X 1. 11:44 Melody Montejo, RN is Primary Nurse. hb 12:03 No provider procedures requiring assistance completed. Patient did not have IV access hb during this emergency room visit. Administered Medications: No medications were administered Outcome: 11:47 Discharge ordered by . rn 12:03 Discharged to home ambulatory. hb 12:03 Condition: stable 12:03 Discharge instructions given to patient, Instructed on discharge instructions, follow up and referral plans. medication usage, Demonstrated understanding of instructions, follow-up care, medications, Prescriptions given X 2. 12:03 Patient left the ED. hb Signatures: Kelley Drummond Irene, RN RN Gato Smart MD MD rn Baxter, Heather, RN RN hb
--- NOTE | 2019-12-16 11:48 | EDPHYS ---
Physician Documentation [facility] Name: Wendi Norton Age: 54 yrs Sex: Female : 1965 Arrival Date: 12/16/2019 Time: 10:49 Bed 6 Private MD: ED Physician Gato Smart HPI: 12/16 11:43 This 54 yrs old Female presents to ER via Ambulatory with complaints of Arm rn Pain, Foot Pain. 11:43 The patient or guardian complains of pain, numbness. The complaints affect the right rn arm. Onset: The symptoms/episode began/occurred at an unknown time. Modifying factors: The symptoms are alleviated by nothing. the symptoms are aggravated by nothing. Severity of symptoms: At their worst the symptoms were mild, in the emergency department the symptoms are unchanged. The patient has experienced similar episodes in the past. Reports right arm pain and tingling, unsure when began, has had this before, has chronic neck and back issues, sees pain management, no weakness, reports currently only feels it in right arm, seen before for this and symptoms improved with steroids. No recent trauma.. 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 - Coronavirus screen:: The patient has NOT traveled to [place], [place], or [place] in the past 14 days. Proceed with normal triage process as indicated. - Social history:: Smoking status: Patient reports the use of cigarette tobacco products, smokes one-half pack cigarettes per day. - Family history:: not pertinent. - Ebola Screening: : Patient negative for fever greater than or equal to 101.5 degrees Fahrenheit, and additional compatible Ebola Virus Disease symptoms Patient denies exposure to infectious person Patient denies travel to an Ebola-affected area in the 21 days before illness onset No symptoms or risks identified at this time. - Hospitalizations: : No recent hospitalization is reported. ROS: 11:43 Constitutional: Negative for fever, chills, and weight loss, Neck: Negative for injury, rn pain, and swelling, Cardiovascular: Negative for chest pain, palpitations, and edema, Respiratory: Negative for shortness of breath, cough, wheezing, and pleuritic chest pain, Abdomen/GI: Negative for abdominal pain, nausea, vomiting, diarrhea, and constipation, MS/Extremity: Negative for injury and deformity, Skin: Negative for injury, rash, and discoloration, Neuro: Negative for headache, weakness, and seizure. Exam: 11:43 Constitutional: This is a well developed, well nourished patient who is awake, alert, rn and in no acute distress. Head/Face: Normocephalic, atraumatic. Neck: Trachea midline, no thyromegaly or masses palpated, and no cervical lymphadenopathy. Supple, full range of motion without nuchal rigidity, or vertebral point tenderness. No Meningismus. Cardiovascular: Regular rate and rhythm. No pulse deficits. Respiratory: No increased work of breathing, no retractions or nasal flaring. MS/ Extremity: Pulses equal, no cyanosis. Neurovascular intact. Full, normal range of motion. Equal circumference. Neuro: Awake and alert, GCS 15, oriented to person, place, time, and situation. Cranial nerves II-XII grossly intact. Motor strength 5/5 in all extremities. Decreased sensation to soft touch RUE. Cerebellar exam normal. Vital Signs: 11:11 BP 93 / 61; Pulse 96; Resp 16; Temp 98.4; Pulse Ox 97% on R/A; Weight 90.72 kg; Height iw 5 ft. 4 in. (162.56 cm); Pain 9/10; 11:11 Body Mass Index 34.33 (90.72 kg, 162.56 cm) iw MDM: 11:22 Patient medically screened. rn 11:43 Differential diagnosis: radiculopathy, paresthesias. Data reviewed: vital signs, nurses rn notes, old medical records, and as a result, I will discharge patient. Counseling: I had a detailed discussion with the patient and/or guardian regarding: the historical points, exam findings, and any diagnostic results supporting the discharge/admit diagnosis, the need for outpatient follow up, to return to the emergency department if symptoms worsen or persist or if there are any questions or concerns that arise at home. Special discussion: I discussed with the patient/guardian in detail that at this point there is no indication for admission to the hospital. It is understood, however, that if the symptoms persist or worsen the patient needs to return immediately for re-evaluation. ED course: Pt requests pain meds, but on pain management, requests prescription for ibuprofen. . Administered Medications: No medications were administered Disposition: 12/16/19 11:47 Discharged to Home. Impression: Radiculopathy, cervical region, Paresthesia of skin. - Condition is Stable. - Discharge Instructions: Cervical Radiculopathy, Paresthesia. - Prescriptions for Ibuprofen 600 mg Oral Tablet - take 1 tablet by ORAL route every 6 hours As needed take with food; 15 tablet. Medrol (Carl) 4 mg Oral Tablets, Dose Pack - take 1 tablet by ORAL route as directed - follow package instructions; 1 packet. - Medication Reconciliation Form, Thank You Letter, Antibiotic Education, Prescription Opioid Use form. - Follow up: Private Physician; When: As needed; Reason: Recheck today's complaints, Re-evaluation by your physician. - Problem is chronic. - Symptoms have improved. Signatures: Danette Fletcher RN RN iw Nieto, Roman, MD MD rn Baxter, Heather, RN RN hb Corrections: (The following items were deleted from the chart) 12:03 11:47 12/16/2019 11:47 Discharged to Home. Impression: Radiculopathy, cervical region; hb Paresthesia of skin. Condition is Stable. Forms are Medication Reconciliation Form, Thank You Letter, Antibiotic Education, Prescription Opioid Use. Follow up: Private Physician; When: As needed; Reason: Recheck today's complaints, Re-evaluation by your physician. Problem is chronic. Symptoms have improved. rn
[2019-12-16 12:10] VITALS: BP 93/61; TEMP 98.4; O2SAT 97
== END 2019-12-16 12:03 | disposition home or self-care (01) ==
LOC: ER 10:47
DX: M54.12 Radiculopathy, cervical region (principal); R20.2 Paresthesia of skin; F17.210 Nicotine dependence, cigarettes, uncomplicated; F31.9 Bipolar disorder, unspecified; E11.9 Type 2 diabetes mellitus without complications; J44.9 Chronic obstructive pulmonary disease, unspecified; Z85.3 Personal history of malignant neoplasm of breast
CPT/HCPCS: 99282

== ENCOUNTER 2019-12-24 04:39 | Emergency (ER) | payer OTHER ==
--- OUTSIDE RECORDS SUMMARY | 2019-12-24 04:42 | XMS REPORT ---
[...] Start End Status Dosage System Date Date [place] ND 61658438690 300 MG Orally Active 1 capsule Carbonate Once a day Paxil ND 30975929081 40 MG Orally Active 1 tablet Once a day in the morning Adderall ND 31103396958 20 MG Orally Active 1 tablet Twice a day Indomethacin ND 72417615508 50 MG Orally Oct 10, Nov 09, Active 1 capsule Twice a day 2018 2019 as needed for pain; take with food or milk Klonopin ND 96584360143 1 MG Orally TID Active 1 tablet Quetiapine ND 96871282233 300 MG Orally Active 1 tablet Fumarate Once a day at bedtime Results No Known Results Summary Purpose eClinicalWorks Submission
--- OUTSIDE RECORDS SUMMARY | 2019-12-24 04:42 | XMS REPORT ---
:1965 Author Organization [facility] Address [address] [place] [address] Dr. Baker [address] [place] [id number] Care Team Providers Name Role Phone MARKO [...] send to the Main Lab for Analysis. [id number] 08:15:00 Test Item Value Reference Range Comments [place] (test code=LI) 0.44 mmol/L 0.6-1.2 POC Glucose, [id number] 05:37:00 Test Item Value Reference Range Comments POC Glucose (test 134 mg/dL 70-115 If you consider your patient code=POCGLUC) critically ill, the [place]ira Accu-Chek InformII metershould not be used for Glucose determinations.Draw a venous Glucose and send to the Main Lab for Analysis. POC Glucose, [id number] 07:28:00 Test Item Value Reference Range Comments POC Glucose (test 128 mg/dL 70-115 If you consider your patient code=POCGLUC) critically ill, the [place]ira Accu-Chek InformII metershould not be used for Glucose determinations.Draw a venous Glucose and send to the Main Lab for Analysis. POC Glucose, [id number] 20:18:00 Test Item Value Reference Range Comments POC Glucose (test 121 mg/dL 70-115 If you consider your patient code=POCGLUC) critically ill, the [place]ira Accu-Chek InformII metershould not be used for Glucose determinations.Draw a venous Glucose and send to the Main Lab for Analysis. BHCG, Serum, [id number] 22:36:00 Test Item Value Reference Range Comments Preg Qual [Se] (test code=BSHCG) Negative Negative POC Glucose, [id number] 15:14:00 Test Item Value Reference Range Comments POC Glucose (test 117 mg/dL 70-115 If you consider your patient code=POCGLUC) critically ill, the Moira Accu-Chek InformII metershould not be used for Glucose determinations.Draw a venous Glucose and send to the Main Lab for Analysis.
--- OUTSIDE RECORDS SUMMARY | 2019-12-24 04:42 | XMS REPORT ---
[...] End Date Status Dosage System Date Diclofenac [facility] [id number] 50 MG Orally Oct 20, Nov 19, Active 1 tablet Sodium Twice a day prn 2018 2019 Results No Known Results Summary Purpose eClinicalWorks Submission
[2019-12-24] MEDS ORDERED: METHYLPREDNISOLONE 125 MG INJ ONE (05:23)
[2019-12-24] MEDS ORDERED: HYDROCODONE/APAP 10/325 TAB ONE (05:23)
[2019-12-24] MEDS ORDERED: methocarbamoL 500 MG TAB ONE (05:23)
[2019-12-24] MEDS ORDERED: IBUPROFEN 400 MG TAB ONE (05:24)
[2019-12-24] MEDS ORDERED: ALBUTEROL 2.5 MG/3 ML NEB SOL ONE (05:33)
--- NOTE | 2019-12-24 05:46 | ER ---
Nurse's Notes [facility] Name: Wendi Norton Age: 54 yrs Sex: Female : 1965 Arrival Date: 12/24/2019 Time: 04:41 Bed 16 [facility] MD: Diagnosis: Muscle spasm Presentation: 12/24 04:40 Presenting complaint: EMS states: complaining of cramps all over the body for 3 days rr5 and now its getting worst. 04:40 Transition of care: patient was not received from another setting of care. Onset of rr5 symptoms was December 21, 2019. Risk Assessment: Do you want to hurt yourself or someone else? Patient reports no desire to harm self or others. Initial Sepsis Screen: Does the patient meet any 2 criteria? No. Patient's initial sepsis screen is negative. Does the patient have a suspected source of infection? No. Patient's initial sepsis screen is negative. Note patient stated she needs a pain medicine and muscle relaxer. she complaining of hand , stomach and foot pain with a score of 7/10. 04:40 Method Of Arrival: EMS: [facility] rr5 04:40 Acuity: RAUL 3 rr5 04:40 Care prior to arrival: None. 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 N/A - Post-menopause, last menstruation 8 years ago rr5 Historical: - Allergies: 04:56 NKDA; rr5 - Home Meds: 04:56 Adderall XR Oral 1 cap once daily [Active]; clonazepam 2 mg Oral tab 1 tab 2 times per rr5 day [Active]; fluoxetine 40 mg Oral cap 1 cap once daily [Active]; lithium carbonate 300 mg Oral cpER 1 tab 2 times per day [Active]; Tylenol #3 Oral [Active]; quetiapine 300 mg Oral tab 2 tabs nightly [Active]; - PMHx: 04:56 Asthma; Bipolar disorder; breast cancer- in remission; COPD; Depression; Diabetes - rr5 NIDDM; Diverticulitis; Hepatitis; Pain Management; PTSD; ADD/ADHD; - PSHx: 04:56 leg surgery; rr5 - Immunization history:: Adult Immunizations up to date. - Coronavirus screen:: The patient has NOT traveled to [place] in the past 14 days. Proceed with normal triage process as indicated. - Social history:: Smoking status: Patient reports the use of cigarette tobacco products, 5 sticks /day, Patient uses alcohol, occasionally. Patient/guardian denies using street drugs. - Ebola Screening: : Patient negative for fever greater than or equal to 101.5 degrees Fahrenheit, and additional compatible Ebola Virus Disease symptoms Patient denies exposure to infectious person Patient denies travel to an Ebola-affected area in the 21 days before illness onset. Screenin:57 Abuse screen: Denies threats or abuse. Denies injuries from another. Nutritional rr5 screening: No deficits noted. Tuberculosis screening: No symptoms or risk factors identified. Fall Risk None identified. Total [place] Fall Scale indicates No Risk (0-24 pts). Assessment: 04:50 General: Appears in no apparent distress. comfortable, Behavior is calm, cooperative, rr5 appropriate for age. Pain: Complains of pain in abdomen, right hand, left hand, right foot and left foot Pain does not radiate. Pain currently is 7 out of 10 on a pain scale. Quality of pain is described as aching, crampy, Pain began gradually, Is intermittent. Neuro: Level of Consciousness is awake, alert, obeys commands, Oriented to person, place, time, situation, Appropriate for age. Cardiovascular: Capillary refill < 3 seconds Patient's skin is warm and dry. Respiratory: Airway is patent Respiratory effort is even, unlabored, Respiratory pattern is regular, symmetrical. 04:50 GI: No signs and/or symptoms were reported involving the gastrointestinal system. : rr5 No signs and/or symptoms were reported regarding the genitourinary system. EENT: No signs and/or symptoms were reported regarding the EENT system. Derm: Skin is intact, is healthy with good turgor, Skin temperature is warm. Musculoskeletal: Circulation, motion, and sensation intact. Capillary refill < 3 seconds, Reports cramps all over the body. 05:15 Reassessment: Patient appears in no apparent distress at this time. Patient is alert, rr5 oriented x 3, equal unlabored respirations, skin warm/dry/pink. complaints of hard to breath, ED provider informed with order for breathing treatment. 05:51 Reassessment: Patient appears in no apparent distress at this time. Patient is alert, rr5 oriented x 3, equal unlabored respirations, skin warm/dry/pink. discharge instruction given and explained without complaints made. Patient states feeling better. Patient states symptoms have improved. Vital Signs: 04:50 BP 99 / 56; Pulse 93; Resp 20; Temp 98.3; Pulse Ox 99% ; Weight 92.53 kg; Height 5 ft. rr5 4 in. (162.56 cm); Pain 7/10; 05:50 BP 109 / 83; Pulse 80; Resp 17; Pulse Ox 98% on R/A; rr5 04:50 Body Mass Index 35.02 (92.53 kg, 162.56 cm) rr5 ED Course: 04:41 Patient arrived in ED. rr5 04:44 Volodymyr Watson MD is Attending Physician. kdr 04:53 Triage completed. rr5 04:57 Arm band placed on right wrist. rr5 04:57 Patient has correct armband on for positive identification. Bed in low position. Call rr5 light in reach. Pulse ox on. NIBP on. 05:15 Jonnie Camara, RN is Primary Nurse. rr5 05:51 No provider procedures requiring assistance completed. Patient did not have IV access rr5 during this emergency room visit. Administered Medications: 05:25 Drug: SOLU-Medrol 125 mg Route: IM; Site: left gluteus; rr5 05:57 Follow up: Response: No adverse reaction rr5 05:30 Drug: [place] 10 mg-325 mg 1 tabs {Note: rass 0.} Route: PO; rr5 05:56 Follow up: Response: No adverse reaction; Marked relief of symptoms; RASS: Alert and rr5 Calm (0) 05:30 Drug: Robaxin 750 mg Route: PO; rr5 05:56 Follow up: Response: No adverse reaction; Marked relief of symptoms rr5 05:30 Drug: Robaxin 750 mg Route: PO; rr5 05:30 Drug: Ibuprofen 800 mg Route: PO; rr5 05:55 Follow up: Response: No adverse reaction; Marked relief of symptoms rr5 05:32 Drug: Albuterol 2.5 mg Route: Inhalation; rr5 05:55 Follow up: Response: No adverse reaction; Marked relief of symptoms rr5 Outcome: 05:44 Discharge ordered by . kdr 05:51 Discharged to home via wheelchair. rr5 05:51 Condition: stable 05:51 Discharge instructions given to patient, Instructed on discharge instructions, follow up and referral plans. medication usage, Demonstrated understanding of instructions, follow-up care, medications, Prescriptions given X 3. 05:58 Patient left the ED. rr5 Signatures: Volodymyr Watson MD MD [facility] Jonnie Camara RN RN rr5
--- NOTE | 2019-12-24 05:46 | EDPHYS ---
[facility] Name: Wendi Norton Age: 54 yrs Sex: Female : 1965 Arrival Date: 12/24/2019 Time: 04:41 Bed 16 Private MD: ED Physician Volodymyr Watson HPI: 12/24 06:45 This 54 yrs old Female presents to ER via EMS with complaints of cramps all kdr over the body. 06:45 The patient has multiple complaints and is requesting the strongest pain shot we have kdr and admission. States that she is having muscle spasms. 06:50 She is also wanting a refill of her psych medications. Onset: The symptoms/episode kdr began/occurred gradually, at an unknown time. Severity of symptoms: At their worst the symptoms were moderate in the emergency department the symptoms have improved markedly. The patient has experienced similar episodes in the past, chronically. The patient has not recently seen a physician. 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 N/A - Post-menopause, last menstruation 8 years ago rr5 Historical: - Allergies: 04:56 NKDA; rr5 - Home Meds: 04:56 Adderall XR Oral 1 cap once daily [Active]; clonazepam 2 mg Oral tab 1 tab 2 times per rr5 day [Active]; fluoxetine 40 mg Oral cap 1 cap once daily [Active]; lithium carbonate 300 mg Oral cpER 1 tab 2 times per day [Active]; Tylenol #3 Oral [Active]; quetiapine 300 mg Oral tab 2 tabs nightly [Active]; - PMHx: 04:56 Asthma; Bipolar disorder; breast cancer- in remission; COPD; Depression; Diabetes - rr5 NIDDM; Diverticulitis; Hepatitis; Pain Management; PTSD; ADD/ADHD; - PSHx: 04:56 leg surgery; rr5 - Immunization history:: Adult Immunizations up to date. - Coronavirus screen:: The patient has NOT traveled to [place] in the past 14 days. Proceed with normal triage process as indicated. - Social history:: Smoking status: Patient reports the use of cigarette tobacco products, 5 sticks /day, Patient uses alcohol, occasionally. Patient/guardian denies using street drugs. - Ebola Screening: : Patient negative for fever greater than or equal to 101.5 degrees Fahrenheit, and additional compatible Ebola Virus Disease symptoms Patient denies exposure to infectious person Patient denies travel to an Ebola-affected area in the 21 days before illness onset. ROS: 06:50 Constitutional: Negative for fever, chills, and weight loss, Eyes: Negative for injury, kdr pain, redness, and discharge, ENT: Negative for injury, pain, and discharge, Neck: Negative for injury, pain, and swelling, Cardiovascular: Negative for chest pain, palpitations, and edema, Respiratory: Negative for shortness of breath, cough, wheezing, and pleuritic chest pain, Abdomen/GI: Negative for abdominal pain, nausea, vomiting, diarrhea, and constipation, Back: Negative for injury and pain, : Negative for injury, bleeding, discharge, and swelling, Skin: Negative for injury, rash, and discoloration, Neuro: Negative for headache, weakness, numbness, tingling, and seizure activity. Psych: Negative for depression, anxiety, suicide ideation, homicidal ideation, and hallucinations, Allergy/Immunology: Negative for hives, rash, and allergies, Endocrine: Negative for neck swelling, polydipsia, polyuria, polyphagia, and marked weight changes, Hematologic/Lymphatic: Negative for swollen nodes, abnormal bleeding, and unusual bruising. 06:50 MS/extremity: Positive for cramps. Exam: 06:50 Constitutional: This is a well developed, well nourished patient who is awake, alert, kdr and in no acute distress. Head/Face: Normocephalic, atraumatic. Eyes: Pupils equal round and reactive to light, extra-ocular motions intact. Lids and lashes normal. Conjunctiva and sclera are non-icteric and not injected. Cornea within normal limits. Periorbital areas with no swelling, redness, or edema. Neck: Trachea midline, no thyromegaly or masses palpated, and no cervical lymphadenopathy. Supple, full range of motion without nuchal rigidity, or vertebral point tenderness. No Meningismus. Chest/axilla: Normal chest wall appearance and motion. Nontender with no deformity. No lesions are appreciated. Cardiovascular: Regular rate and rhythm with a normal S1 and S2. No gallops, murmurs, or rubs. Normal PMI, no JVD. No pulse deficits. Respiratory: Lungs have equal breath sounds bilaterally, clear to auscultation and percussion. No rales, rhonchi or wheezes noted. No increased work of breathing, no retractions or nasal flaring. Abdomen/GI: Soft, non-tender, with normal bowel sounds. No distension or tympany. No guarding or rebound. No evidence of tenderness throughout. Back: No spinal tenderness. No costovertebral tenderness. Full range of motion. Skin: Warm, dry with normal turgor. Normal color with no rashes, no lesions, and no evidence of cellulitis. MS/ Extremity: Pulses equal, no cyanosis. Neurovascular intact. Full, normal range of motion. Neuro: Awake and alert, GCS 15, oriented to person, place, time, and situation. Cranial nerves II-XII grossly intact. Motor strength 5/5 in all extremities. Sensory grossly intact. Cerebellar exam normal. Normal gait. Psych: Awake, alert, with orientation to person, place and time. Behavior, mood, and affect are within normal limits. Vital Signs: 04:50 BP 99 / 56; Pulse 93; Resp 20; Temp 98.3; Pulse Ox 99% ; Weight 92.53 kg; Height 5 ft. rr5 4 in. (162.56 cm); Pain 7/10; 05:50 BP 109 / 83; Pulse 80; Resp 17; Pulse Ox 98% on R/A; rr5 04:50 Body Mass Index 35.02 (92.53 kg, 162.56 cm) rr5 MDM: 05:44 Patient medically screened. kdr 06:50 Data reviewed: vital signs, nurses notes. Counseling: I had a detailed discussion with kdr the patient and/or guardian regarding: the historical points, exam findings, and any diagnostic results supporting the discharge/admit diagnosis, the need for outpatient follow up. Special discussion: I discussed with the patient/guardian in detail that at this point there is no indication for admission to the hospital. It is understood, however, that if the symptoms persist or worsen the patient needs to return immediately for re-evaluation. ED course: The patient was non-toxic appearing and her VS were stable. She did not appear to need emergency medical attention in any manner. Administered Medications: 05:25 Drug: SOLU-Medrol 125 mg Route: IM; Site: left gluteus; rr5 05:57 Follow up: Response: No adverse reaction rr5 05:30 Drug: [place] 10 mg-325 mg 1 tabs {Note: rass 0.} Route: PO; rr5 05:56 Follow up: Response: No adverse reaction; Marked relief of symptoms; RASS: Alert and rr5 Calm (0) 05:30 Drug: Robaxin 750 mg Route: PO; rr5 05:56 Follow up: Response: No adverse reaction; Marked relief of symptoms rr5 05:30 Drug: Robaxin 750 mg Route: PO; rr5 05:30 Drug: Ibuprofen 800 mg Route: PO; rr5 05:55 Follow up: Response: No adverse reaction; Marked relief of symptoms rr5 05:32 Drug: Albuterol 2.5 mg Route: Inhalation; rr5 05:55 Follow up: Response: No adverse reaction; Marked relief of symptoms rr5 Disposition: 12/24/19 05:44 Discharged to Home. Impression: Muscle spasm. - Condition is Stable. - Discharge Instructions: Muscle Cramps and Spasms, Muscle Pain, Adult. - Prescriptions for Robaxin 500 mg Oral Tablet - take 2 tablets by ORAL route every 6 hours As needed; 20 tablet. Medrol (Carl) 4 mg Oral Tablets, Dose Pack - take 1 tablet by ORAL route as directed - follow package instructions; 1 packet. Albuterol Sulfate 90 mcg/actuation - inhale 1-2 puff by INHALATION route every 4-6 hours; 1 Inhaler. - Medication Reconciliation Form, Thank You Letter form. - Follow up: Private Physician; When: 2 - 3 days; Reason: If symptoms return, Further diagnostic work-up, Recheck today's complaints, Continuance of care, Re-evaluation by your physician. - Problem is an acute exacerbation. - Symptoms have improved. Signatures: Volodymyr Watson MD MD kdr Jonnie Camara RN RN rr5 Corrections: (The following items were deleted from the chart) 05:58 05:44 12/24/2019 05:44 Discharged to Home. Impression: Muscle spasm. Condition is rr5 Stable. Forms are Medication Reconciliation Form, Thank You Letter, Antibiotic Education, Prescription Opioid Use. Follow up: Private Physician; When: 2 - 3 days; Reason: If symptoms return, Further diagnostic work-up, Recheck today's complaints, Continuance of care, Re-evaluation by your physician. Problem is an acute exacerbation. Symptoms have improved. kdr
[2019-12-24 06:20] VITALS: BP 109/83; O2SAT 98
[2019-12-24 06:58] VITALS: TEMP 98.3
== END 2019-12-24 05:58 | disposition home or self-care (01) ==
LOC: ER 04:39
DX: M62.838 Other muscle spasm (principal); F31.9 Bipolar disorder, unspecified; F43.10 Post-traumatic stress disorder, unspecified; E11.9 Type 2 diabetes mellitus without complications; F17.210 Nicotine dependence, cigarettes, uncomplicated; Z85.3 Personal history of malignant neoplasm of breast
CPT/HCPCS: 96372; 99284; J2930

== ENCOUNTER 2020-01-24 12:56 | Emergency (ER) | payer OTHER ==
--- OUTSIDE RECORDS SUMMARY | 2020-01-24 12:59 | XMS REPORT ---
[...] Start End Status Dosage System Date Date Saline ND 40722519022 300 MG Orally Active 1 capsule Carbonate Once a day Paxil ND 99077229700 40 MG Orally Active 1 tablet Once a day in the morning Adderall ND 12874223603 20 MG Orally Active 1 tablet Twice a day Indomethacin ND 22174588045 50 MG Orally Oct 10, Nov 09, Active 1 capsule Twice a day 2018 2019 as needed for pain; take with food or milk Klonopin ND 79056898941 1 MG Orally TID Active 1 tablet Quetiapine ND 30129324726 300 MG Orally Active 1 tablet Fumarate Once a day at bedtime Results No Known Results Summary Purpose eClinicalWorks Submission
--- OUTSIDE RECORDS SUMMARY | 2020-01-24 12:59 | XMS REPORT ---
:1965 Author Organization [facility] Address [address] [place] [address] Dr. Baker [address] [place] [id number] Care Team Providers Name Role Phone MARKO [...] send to the Main Lab for Analysis. [id number] 08:15:00 Test Item Value Reference Range Comments [place] (test code=LI) 0.44 mmol/L 0.6-1.2 POC Glucose, [id number] 05:37:00 Test Item Value Reference Range Comments POC Glucose (test 134 mg/dL 70-115 If you consider your patient code=POCGLUC) critically ill, the Moira Accu-Chek InformII metershould not be used for Glucose determinations.Draw a venous Glucose and send to the Main Lab for Analysis. POC Glucose, [id number] 07:28:00 Test Item Value Reference Range Comments POC Glucose (test 128 mg/dL 70-115 If you consider your patient code=POCGLUC) critically ill, the Moira Accu-Chek InformII metershould not be used for Glucose determinations.Draw a venous Glucose and send to the Main Lab for Analysis. POC Glucose, [id number] 20:18:00 Test Item Value Reference Range Comments POC Glucose (test 121 mg/dL 70-115 If you consider your patient code=POCGLUC) critically ill, the Moira Accu-Chek InformII metershould not be used for Glucose determinations.Draw a venous Glucose and send to the Main Lab for Analysis. BHCG, Serum, [id number] 22:36:00 Test Item Value Reference Range Comments Preg Qual [Se] (test code=BSHCG) Negative Negative POC Glucose, [id number] 15:14:00 Test Item Value Reference Range Comments POC Glucose (test 117 mg/dL 70-115 If you consider your patient code=POCGLUC) critically ill, the Moira Accu-Chek InformII metershould not be used for Glucose determinations.Draw a venous Glucose and send to the Main Lab for Analysis.
--- OUTSIDE RECORDS SUMMARY | 2020-01-24 12:59 | XMS REPORT ---
[...] End Date Status Dosage System Date Diclofenac [facility] [id number] 50 MG Orally Oct 20, Nov 19, Active 1 tablet Sodium Twice a day prn 2018 2019 Results No Known Results Summary Purpose eClinicalWorks Submission
--- NOTE | 2020-01-24 14:02 | RAD REPORT ---
EXAM DESCRIPTION: RAD - Hip Right 2 View - 01/24/2020 1:51 pm CLINICAL HISTORY: PAIN, right hip COMPARISON: No comparisons FINDINGS: AP and frog-leg views of the right hip were obtained. There is no fracture or dislocation. No AVN or focal head abnormality. No significant degenerative ch anges are present. Joint effusion is not suspected. Overlying soft tissues somewhat limit detail. No periarticular soft tissue abnormality identifiable. IMPRESSION: Negative right hip examination for acute or significant findings.
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
[2020-01-24 15:01] VITALS: TEMP 99.4
[2020-01-24 15:09] VITALS: BP 103/72; O2SAT 95
== END 2020-01-24 14:47 | disposition home or self-care (01) ==
LOC: ER 12:56
DX: M25.551 Pain in right hip (principal); R09.81 Nasal congestion; F31.9 Bipolar disorder, unspecified; J44.9 Chronic obstructive pulmonary disease, unspecified; F90.9 Attention-deficit hyperactivity disorder, unspecified type; F17.210 Nicotine dependence, cigarettes, uncomplicated; Z85.3 Personal history of malignant neoplasm of breast
CPT/HCPCS: 99284

== ENCOUNTER 2020-02-20 07:22 | Emergency (ER) | payer OTHER ==
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
--- OUTSIDE RECORDS SUMMARY | 2020-02-20 07:24 | XMS REPORT ---
[...] unspecified chronicity Problem Encounter for medication Z51.81 Act rex monitoring Problem Chronic pain syndrome G89.4 Active Problem Obesity (BMI 30-39.9) E66.9 Active Problem Right ankle pain, unspecified M25.571 Active chronicity Problem Numbness of tongue R20.0 Active Problem Depression with anxiety F41.8 Acti ve Problem Daily headache R51 Active Medications Medication Code Code Instructions Start End Date Status Dosage System Date Diclofenac [facility] 05314005566 50 MG Orally Oct 20, Nov 19, Active 1 ta blet Sodium Twice a day prn 2018 2019 Results No Known Results Summary Purpose eClinicalWorks Submission
--- OUTSIDE RECORDS SUMMARY | 2020-02-20 07:24 | XMS REPORT ---
:[address] [facility] t Address Critical access hospital [address] [place] [address] Care Team Providers Name Role Phone Sg [...] Value Reference Range Comments POC Glucose (test code = 136 mg/dL 70-115 Notify RN or MDIf you consider your POCGLUC) patient critical ly ill, the [place] Accu-Chek Inform II metershould not be used for Glucose determinations.Draw a venous Glucose a nd send to the Main Lab for Analysis. [id number] 08:15:00 Test Item Value Reference Range Comments [place] (test code = LI) 0.44 mmol/L 0.6-1.2 POC Glucose, [id number] 05:37:00 Test Item Value Reference Range Comments POC Glucose (test code = 134 mg/dL 70-115 If you consider your patient POCGLUC) critically ill, the [place] Accu-Chek Inform II metershould not be used for Glucose determinations.D raw a venous Glucose and send to the Main Lab for Analysis . POC Glucose, [id number] 07:28:00 Test Item Value Reference Range Comments POC Glucose (test code = 128 mg/dL 70-115 If you consider your patient POCGLUC) critically ill, the [place] Accu-Chek Inform II metershould not be used for Glucose determinations.D raw a venous Glucose and send to the Main Lab for Analysis . POC Glucose, [id number] 20:18:00 Test Item Value Reference Range Comments POC Glucose (test code = 121 mg/dL 70-115 If you consider your patient POCGLUC) critically ill, the [place] Accu-Chek Inform II metershould not be used for Glucose determinations.D raw a venous Glucose and send to the Main Lab for Analysis . BHCG, Serum, [id number] 22:36:00 Test Item Value Reference Range Comments Preg Qual [Se] (test code = BSHCG) Negative Negative POC Glucose, [id number] 15:14:00 Test Item Value Reference Range Comments POC Glucose (test code = 117 mg/dL 70-115 If you consider your patient POCGLUC) critically ill, the [place] Accu-Chek Inform II metershould not be used for Glucose determinations.D raw a venous Glucose and send to the Main Lab for Analysis .
[2020-02-20 07:56] LABS: Absolute Lymphocytes (CBC) 1.7 K/uL (0.7-4.9); Basophils % 0.5 % (0-1.3); Hematocrit 47.9 % (36.0-45.0); Lymphocytes % 15.6 % (15.3-44.8); MPV 9.4 fL (7.6-11.3); RBC Red Blood Cell Count 5.42 M/uL (3.86-4.86)
[2020-02-20 08:03] LABS: Protime INR 1.17
--- NOTE | 2020-02-20 08:09 | RAD REPORT ---
EXAM DESCRIPTION: CT - Head Brain Wo Cont - 02/20/2020 7:54 am CLINICAL HISTORY: CONFUSED Headache, drowsiness COMPARISON: Head Brain Wo Cont dated 10/25/2017; Head Brain Wo Cont dated 08/14/2017 TECHNIQUE: All CT scans are performed using dose optimization technique as appropriate and may inclu de automated exposure control or mA/KV adjustment according to patient size. FINDINGS: No intracranial hemorrhage, hydrocephalus or extra-axial fluid collection.No areas of brai n edema or evidence of midline shift. The paranasal sinuses and mastoids are clear. The calvarium is intact. IMPRESSION: No acute intracranial abnormality.
--- NOTE | 2020-02-20 08:10 | RAD REPORT ---
EXAM DESCRIPTION: RAD - Chest Single View - 02/20/2020 8:05 am CLINICAL HISTORY: COUGH Chest pain. COMPARISON: Chest Single View dated 12/21/2018; Chest Single View dated 09/01/2017; Chest Single View dated 08/14/2017; Chest Single View dated 08/07/2017 FINDINGS: Portable technique limits examination quality. The lungs are grossly clear. The heart is normal in size. No displaced fractures. IMPRESSION: No acute intrathoracic process suspected.
[2020-02-20 08:17] LABS: ALT/SGPT 27 U/L (12-78); AST/SGOT 22 U/L (15-37); Albumin 3.8 g/dL (3.4-5.0); Alkaline Phosphatase 134 U/L (45-117); BUN Blood Urea Nitrogen 16 mg/dL (7-18); Bicarbonate 20 mmol/L (21-32); Bilirubin Direct 0.3 mg/dL (0-0.2); Glucose Level 160 mg/dL (74-106); Potassium 3.3 mmol/L (3.5-5.1); Sodium Level 140 mmol/L (136-145)
[2020-02-20] MEDS ORDERED: NA CHLORIDE 0.9% 1,000 ML ONE (08:17)
[2020-02-20 09:39] LABS: Barbiturates NEGATIVE (NEGATIVE); Benzodiazepines NEGATIVE (NEGATIVE); Cocaine NEGATIVE (NEGATIVE); METHAMPHETAM NEGATIVE (NEGATIVE); Methadone NEGATIVE (NEGATIVE); Opiates POSITIVE (NEGATIVE); Phencyclidine NEGATIVE (NEGATIVE); THC Cannibis NEGATIVE (NEGATIVE)
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
--- NOTE | 2020-02-20 11:04 | EDPHYS ---
Physician Documentation [facility] Name: Wendi Norton Age: 54 yrs Sex: Female : 1965 Arrival Date: 02/20/2020 Time: 07:20 Bed 7 Private MD: ED Physician Donavan Hawley HPI: 02/19 07:41 This 54 yrs old Female presents to ER via EMS with complaints of altered kb mental status. 07:41 The patient presents with confusion, disorientation, to time. Onset: The kb symptoms/episode began/occurred 3 day(s) ago. Possible causes: unknown. Associated signs and symptoms: Pertinent positives: confusion. Current symptoms: In the emergency department the patient's symptoms are unchanged from the initial presentation. Patient's baseline: Neuro: alert and fully oriented, Motor: no deficits, Ambulation: walks without assistance, Speech: normal. The patient has not experienced similar symptoms in the past. The patient has not recently seen a physician. Pt's spouse called and reported that pt has been confused for the last 2-3 days so he called 911 to bring her in. . 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 N/A - Post-menopause Historical: - Allergies: 07:30 NKDA; jl7 - Home Meds: 07:30 Adderall XR Oral 1 cap once daily [Active]; clonazepam 2 mg Oral tab 1 tab 2 times per jl7 day [Active]; lithium carbonate 300 mg Oral cpER 1 tab 2 times per day [Active]; fluoxetine 40 mg Oral cap 1 cap once daily [Active]; quetiapine 300 mg Oral tab 2 tabs nightly [Active]; Tylenol #3 Oral [Active]; Vicodin 5-300 mg Oral tab 1 tab daily [Active]; - PMHx: 07:30 ADD/ADHD; Asthma; Bipolar disorder; breast cancer- in remission; COPD; Depression; jl7 Diabetes - NIDDM; Diverticulitis; Hepatitis; Pain Management; PTSD; - Immunization history:: Adult Immunizations unknown. - Social history:: Smoking status: Patient reports the use of cigarette tobacco products, Patient uses street drugs. ROS: 07:39 Constitutional: Negative for fever, chills, and weight loss, Cardiovascular: Negative kb for chest pain, palpitations, and edema, Abdomen/GI: Negative for abdominal pain, nausea, vomiting, diarrhea, and constipation, Back: Negative for injury and pain, MS/Extremity: Negative for injury and deformity, Skin: Negative for injury, rash, and discoloration. 07:39 Respiratory: Positive for cough, Negative for dyspnea on exertion, hemoptysis, orthopnea, pleurisy, shortness of breath, wheezing. 07:39 Neuro: Positive for altered mental status. Exam: 07:40 Constitutional: This is a well developed, well nourished patient who is awake, alert, kb and in no acute distress. Head/Face: Normocephalic, atraumatic. ENT: Nares patent. No nasal discharge, no septal abnormalities noted. Tympanic membranes are normal and external auditory canals are clear. Oropharynx with no redness, swelling, or masses, exudates, or evidence of obstruction, uvula midline. Mucous membranes moist. Neck: Trachea midline, no thyromegaly or masses palpated, and no cervical lymphadenopathy. Supple, full range of motion without nuchal rigidity, or vertebral point tenderness. No Meningismus. Chest/axilla: Normal chest wall appearance and motion. Nontender with no deformity. No lesions are appreciated. Cardiovascular: Regular rate and rhythm with a normal S1 and S2. No gallops, murmurs, or rubs. Normal PMI, no JVD. No pulse deficits. Respiratory: Lungs have equal breath sounds bilaterally, clear to auscultation and percussion. No rales, rhonchi or wheezes noted. No increased work of breathing, no retractions or nasal flaring. Abdomen/GI: Soft, non-tender, with normal bowel sounds. No distension or tympany. No guarding or rebound. No evidence of tenderness throughout. Back: No spinal tenderness. No costovertebral tenderness. Full range of motion. Skin: Warm, dry with normal turgor. Normal color with no rashes, no lesions, and no evidence of cellulitis. MS/ Extremity: Pulses equal, no cyanosis. Neurovascular intact. Full, normal range of motion. 07:40 Neuro: Orientation: to person, place, Mentation: able to follow commands, confused, Cerebellar function: is grossly normal, Motor: is normal, Gait: is steady, at a normal pace, without difficulty. 08:49 ECG was reviewed by the Attending Physician. kb Vital Signs: 07:24 BP 143 / 107; Pulse 113; Resp 19 S; Temp 98.1(TE); Pulse Ox 100% on R/A; jl7 09:48 BP 126 / 74; Pulse 102; Resp 16 S; Pulse Ox 100% on R/A; jl7 MDM: 07:25 Patient medically screened. 07:40 Data reviewed: vital signs, nurses notes. Data interpreted: Pulse oximetry: on room air kb is 100 %. Interpretation: normal. 09:54 ED course: Spouse reports pt hasn't been taking her medications prescribed by her psychiatrist. . 10:56 Counseling: I had a detailed discussion with the patient and/or guardian regarding: the kb historical points, exam findings, and any diagnostic results supporting the discharge/admit diagnosis, lab results, radiology results, the need for outpatient follow up, a family practitioner, to return to the emergency department if symptoms worsen or persist or if there are any questions or concerns that arise at home. 02/19 07:24 Order name: Acetaminophen; Complete Time: 08:31 kb 02/19 07:24 Order name: Basic Metabolic Panel; Complete Time: 08:31 kb 02/19 07:24 Order name: CBC with Diff; Complete Time: 08:07 kb 02/19 07:24 Order name: ETOH Level; Complete Time: 08:18 kb 02/19 07:24 Order name: Hepatic Function; Complete Time: 08:31 kb 02/19 07:24 Order name: PT-INR; Complete Time: 08:07 kb 02/19 07:24 Order name: Ptt, Activated; Complete Time: 08:07 kb 02/19 07:24 Order name: Salicylate; Complete Time: 08:36 kb 02/19 07:24 Order name: Urine Drug Screen; Complete Time: 09:40 kb 02/19 07:24 Order name: CT Head Brain wo Cont; Complete Time: 08:13 kb 02/19 07:24 Order name: Chest Single View XRAY; Complete Time: 08:13 kb 02/19 07:24 Order name: Flu; Complete Time: 08:31 kb 02/19 09:06 Order name: Urine Dipstick--Ancillary (enter results); Complete Time: 11:06 bd 02/19 09:52 Order name: Aline; Complete Time: 10:56 kb 02/19 07:24 Order name: EKG - Nurse/Tech; Complete Time: 08:58 kb 02/19 07:24 Order name: IV Saline Lock; Complete Time: 07:48 kb 02/19 07:24 Order name: Labs collected and sent; Complete Time: 07:48 kb 02/19 07:24 Order name: Urine Dipstick-Ancillary (obtain specimen); Complete Time: 08:58 kb 02/19 11:06 Order name: EKG Electrocardiogram EDMS EC:49 Rate is 99 beats/min. Rhythm is regular. QRS [place] is Normal. UT interval is normal at kb 128 msec. QRS interval is normal at 82 msec. QT interval is normal at 344 msec. Administered Medications: :20 Drug: NS 0.9% 1000 ml Route: IV; Rate: 1000 ml; Site: right antecubital; jl7 09:48 Follow up: Response: No adverse reaction; IV Intake: 1000ml jl7 Disposition: 13:52 Co-signature as Attending Physician, Donavan Hawley MD I agree with the assessment and shefali plan of care. Disposition: 02/20/20 11:02 Discharged to Home. Impression: subtherapeutic lithium level, Bipolar disorder, Dehydration. - Condition is Stable. - Discharge Instructions: Confusion, Bipolar Disorder. - Medication Reconciliation Form, Thank You Letter, Antibiotic Education, Prescription Opioid Use form. - Follow up: Private Physician; When: 2 - 3 days; Reason: Recheck today's complaints, Continuance of care, Re-evaluation by your physician. Follow up: Emergency Department; When: As needed; Reason: Worsening of condition. Signatures: Dispatcher [employer] EDDC Anisa Noriega, PROPELLER LAYOUT WORKER-C PROPELLER LAYOUT WORKER-Donavan Brice MD MD cha Baxter, Heather, RN RN Robert Rodas RN RN jl7 Corrections: (The following items were deleted from the chart) 11:07 11:02 02/20/2020 11:02 Discharged to Home. Impression: subtherapeutic lithium level; kb Bipolar disorder. Condition is Stable. Forms are Medication Reconciliation Form, Thank You Letter, Antibiotic Education, Prescription Opioid Use. Follow up: Private Physician; When: 2 - 3 days; Reason: Recheck today's complaints, Continuance of care, Re-evaluation by your physician. Follow up: Emergency Department; When: As needed; Reason: Worsening of condition. kb 12:36 11:07 02/20/2020 11:02 Discharged to Home. Impression: subtherapeutic lithium level; hb Bipolar disorder; Dehydration. Condition is Stable. Discharge Instructions: Confusion, Bipolar Disorder. Forms are Medication Reconciliation Form, Thank You Letter, Antibiotic Education, Prescription Opioid Use. Follow up: Private Physician; When: 2 - 3 days; Reason: Recheck today's complaints, Continuance of care, Re-evaluation by your physician. Follow up: Emergency Department; When: As needed; Reason: Worsening of condition. kb
[2020-02-20 11:05] LABS: Urine Blood NEGATIVE (NEG); Urine Glucose NEGATIVE (NEG); Urine Protein 1+ (NEG); Urine Specific Gravity 1.025 (1.005-1.030)
--- NOTE | 2020-02-20 11:30 | EKG ---
Test Date: 2020-02-20 Test Time: 08:48:26 Assistant Professor Of Surgery: TATYANA MEASUREMENT RESULTS: Intervals: Rate: 99 FL: 128 QRSD: 82 QT: 344 QTc: 441 [place]: P: 75 FL: 128 QRS: 69 T: 49 INTERPRETIVE STATEMENTS: Normal sinus rhythm Normal ECG Compared to ECG 12/21/2018 20:34:07 No significant changes Electronically Signed On 02-20-20 11:29:36 CDT by Keith Aldana
[2020-02-20 12:55] VITALS: TEMP 98.1; O2SAT 100
[2020-02-20 12:56] VITALS: BP 126/74
== END 2020-02-20 12:36 | disposition home or self-care (01) ==
LOC: ER 07:22
DX: R79.0 Abnormal level of blood mineral (principal); E86.0 Dehydration; F31.9 Bipolar disorder, unspecified; E11.9 Type 2 diabetes mellitus without complications; J44.9 Chronic obstructive pulmonary disease, unspecified; F90.9 Attention-deficit hyperactivity disorder, unspecified type; Z85.3 Personal history of malignant neoplasm of breast
CPT/HCPCS: 93005; 85025; 80048; 36415; 80320; 80329 ×2; 85610; 80178; 80076; 80307 ×8; 85730; 81003; 87804 ×2; 70450; 71045; J7030; 99284

== ENCOUNTER 2020-03-18 19:39 | Emergency (ER) | payer OTHER ==
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
--- OUTSIDE RECORDS SUMMARY | 2020-03-18 19:42 | XMS REPORT | Clinical Summary ---
:1965 [facility] Address [address] [place] [address] Care Team Providers Name Role Phone Unavailable Primary Care Provider Unavailable Allergies No Known Allergies Medications Medication Sig Dispensed Refills Start Date End Date Status QUEtiapine Take 100 mg by mouth 0 Active (SEROQUEL) 100 MG nightly. tablet lithium 150 MG Take 300 mg by mouth. 0 Active capsule FLUOXETINE, BULK, 40 mg by 0 Ac tive MISC Miscellaneous route . clonazePAM Take 2 [...] Not on file Results Not on fileafter 03/18/2019 Insurance Payer Benefit Plan / Group Subscriber ID Type Phone A ddress MEDICARE MEDICARE A B xxxxxxxxxx Medicare MEDICAID MEDICAID [facility] xxxxxxxxx Medicaid Advance Directives For more information, please contact:[place] [address] [place], [place] [phone] Code Status Date Activated Date Inactivated Comments Full Code 04/22/2016 12:20 PM 04/29/2016 5:47 PM This code status was determined by: Patient
--- OUTSIDE RECORDS SUMMARY | 2020-03-18 19:43 | XMS REPORT ---
:1965 Author Organization [facility] Care Team Providers Name Role Phone Kimi [...] Start End Status Dosage System Date Date [place] 91244487646 300 MG Orally Active 1 caps ule Carbonate Once a day Paxil [facility] 75342605705 40 MG Orally Active 1 table t Once a day in the morning Adderall ND 49256488386 20 MG Orally Active 1 tabl et Twice a day Indomethacin ND 96515758461 50 MG Orally Oct 10Nov 09, Active 1 capsule Twice a day 2018 2019 as needed for pain; take with food or milk Klonopin ND 36249799328 1 MG Orally TID Active 1 t ablet Quetiapine [facility] 48241468550 300 MG Orally Active 1 t ablet Fumarate Once a day at bedtime Results No Known Results Summary Purpose eClinicalWorks Submission
--- OUTSIDE RECORDS SUMMARY | 2020-03-18 19:43 | XMS REPORT ---
[...] End Date Status Dosage System Date Diclofenac [facility] 91219533921 50 MG Orally Oct 20, Nov 19, Active 1 ta blet Sodium Twice a day prn 2018 2019 Results No Known Results Summary Purpose eClinicalWorks Submission
[2020-03-18] MEDS ORDERED: NA CHLORIDE 0.9% 1,000 ML ONE ×3 (20:27→21:45)
[2020-03-18 20:52] LABS: Barbiturates NEGATIVE (NEGATIVE); Benzodiazepines NEGATIVE (NEGATIVE); Cocaine NEGATIVE (NEGATIVE); METHAMPHETAM NEGATIVE (NEGATIVE); Methadone NEGATIVE (NEGATIVE); Opiates POSITIVE (NEGATIVE); Phencyclidine NEGATIVE (NEGATIVE); THC Cannibis NEGATIVE (NEGATIVE)
[2020-03-18 20:54] LABS: Urine Bacteria 20-50 /HPF (<20); Urine Culture Reflex Order NOT NEEDED; Urine RBC NONE SEEN /HPF (NONE SEEN)
[2020-03-18 20:57] LABS: Absolute Lymphocytes (CBC) 1.9 K/uL (0.7-4.9); Basophils % 0.3 % (0-1.3); Hematocrit 44.6 % (36.0-45.0); Lymphocytes % 17.1 % (15.3-44.8); MPV 10.3 fL (7.6-11.3); RBC Red Blood Cell Count 4.91 M/uL (3.86-4.86)
--- NOTE | 2020-03-18 20:57 | RAD REPORT ---
[facility] CLINICAL HISTORY: Cough COMPARISON: March 18, 2020 CT chest FINDINGS: Left upper lobe nodule unchanged. Refer to the CT chest report for recommendation The right lung appears clear. The heart is normal sized
--- NOTE | 2020-03-18 21:11 | RAD REPORT ---
EXAM DESCRIPTION: CT - Head Brain Wo Cont - 03/18/2020 8:46 pm CLINICAL HISTORY: Alteration of awareness/confusion COMPARISON: February 2020 TECHNIQUE: Computed axial tomography of the head was obtained. IV contrast was not requested. All CT scans are performed using dose optimization technique as appropriate and may include automated exposure control or mA/KV adjustment according to patient size. FINDINGS: An intracranial bleed is not seen . The ventricles are normal in caliber. No extra-axial fluid collection is noted. Mild low-density areas within periventricular, deep and subcortical white matter likely represent is chemic changes secondary to small vessel disease. Fluid within the sinuses/ mastoids is not seen. IMPRESSION: No acute intracranial abnormality is seen. If patient's symptoms persist MRI of the bra in would be recommended.
[2020-03-18 21:15] LABS: Urine Blood TRACE (NEG); Urine Glucose NEGATIVE (NEG); Urine Protein TRACE (NEG); Urine Specific Gravity 1.025 (1.005-1.030)
[2020-03-18 21:19] LABS: Protime INR 1.16
[2020-03-18 21:20] LABS: ALT/SGPT 20 U/L (12-78); AST/SGOT 15 U/L (15-37); Albumin 3.7 g/dL (3.4-5.0); Alkaline Phosphatase 118 U/L (45-117); BUN Blood Urea Nitrogen 11 mg/dL (7-18); Bicarbonate 22 mmol/L (21-32); Bilirubin Direct 0.4 mg/dL (0-0.2); Bilirubin Total 1.2 mg/dL (0.2-1.0); Glucose Level 276 mg/dL (74-106); Lithium 0.3 mmol/L (0.6-1.2); Potassium 3.5 mmol/L (3.5-5.1); Protein, Total 8.4 g/dL (6.4-8.2); Salicylates Level 5.1 mg/dL (2.8-20); Sodium Level 140 mmol/L (136-145)
[2020-03-18 21:56] LABS: Blood Morphology Comment NOT SEEN (NOT SEEN); Platelet Estimate DECR; Urine White Blood Cell Casts OK
--- NOTE | 2020-03-18 22:20 | EDPHYS ---
Physician Documentation [facility] Name: Wendi Norton Age: 54 yrs Sex: Female : 1965 Arrival Date: 03/18/2020 Time: 19:46 Bed 4 Private MD: ED Physician Gato Smart HPI: 03/18 20:36 This 54 yrs old Female presents to ER via Wheelchair with complaints of rn Altered Mental Status. 20:36 The patient presents with confusion, decreased mental status. Onset: The rn symptoms/episode began/occurred at an unknown time. Possible causes: unknown. Current symptoms: In the emergency department the patient's symptoms are unchanged from the initial presentation. It is unknown whether or not the patient has had similar symptoms in the past. Patient reports doesn't feel right, came in because "feels sick", reports headache, sore throat, generalized weakness. Denies drug use or head injury. Denies fever.. 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 - Social history:: Smoking status: Patient reports the use of cigarette tobacco products, smokes one-half pack cigarettes per day. - Family history:: not pertinent. - Hospitalizations: : No recent hospitalization is reported. ROS: 20:36 Constitutional: Negative for fever, chills, and weight loss, Eyes: Negative for injury, rn pain, redness, and discharge, ENT: + sore throat Cardiovascular: Negative for chest pain, palpitations, and edema, Respiratory: Negative for shortness of breath, wheezing, and pleuritic chest pain, Abdomen/GI: Negative for abdominal pain, nausea, vomiting, diarrhea, and constipation, MS/Extremity: Negative for injury and deformity, Skin: Negative for injury, rash, and discoloration, Neuro: Negative for numbness, tingling, and seizure. Exam: 20:36 Constitutional: This is a well developed, well nourished patient who is awake, alert, rn rambling but redirectible. Head/Face: Normocephalic, atraumatic. Eyes: Pupils equal round and reactive to light, extra-ocular motions intact. Lids and lashes normal. Conjunctiva and sclera are non-icteric and not injected. Cornea within normal limits. Periorbital areas with no swelling, redness, or edema. ENT: dry MM, no stridor Neck: Trachea midline, no thyromegaly or masses palpated, and no cervical lymphadenopathy. Supple, full range of motion without nuchal rigidity, or vertebral point tenderness. No Meningismus. Cardiovascular: Tachycardic, regular, intact distal pulses Respiratory: + faint exp wheezing, no increased effort, speaking full sentences. Abdomen/GI: soft, non-tender Back: No spinal tenderness. No costovertebral tenderness. Full range of motion. Skin: Warm, dry, with no rashes, no lesions, and no evidence of cellulitis. MS/ Extremity: Pulses equal, no cyanosis. Neurovascular intact. Full, normal range of motion. Equal circumference. Neuro: Awake and alert, GCS 15, oriented to person, place. Cranial nerves II-XII grossly intact. Motor strength 5/5 in all extremities. Sensory grossly intact. Cerebellar exam normal. 22:24 ECG was reviewed by the Attending Physician. rn Vital Signs: 19:55 BP 124 / 58; Pulse 112; Resp 18 S; Temp 98.5(O); Pulse Ox 95% on R/A; Weight 90.72 kg ca1 (R); Height 5 ft. 4 in. (162.56 cm) (R); 21:45 BP 134 / 95; Pulse 110; Resp 19; Pulse Ox 99% ; rr5 22:15 BP 115 / 60; Pulse 106; Resp 18; Pulse Ox 97% on R/A; ea 23:15 BP 105 / 66; Pulse 100; Resp 18; Pulse Ox 95% on R/A; ea 23:40 BP 110 / 75; Pulse 101; Resp 17; Temp 98; Pulse Ox 99% ; rr5 19:55 Body Mass Index 34.33 (90.72 kg, 162.56 cm) ca1 MDM: 20:06 Patient medically screened. rn 22:15 Differential Diagnosis: electrolyte abnormality, overdose, pneumonia, UTI, volume rn depletion, subtherapeutic lithium. Data reviewed: vital signs, nurses notes, lab test result(s), EKG, radiologic studies, CT scan, plain films, and as a result, I will discharge patient. Counseling: I had a detailed discussion with the patient and/or guardian regarding: the historical points, exam findings, and any diagnostic results supporting the discharge/admit diagnosis, lab results, radiology results, the need for outpatient follow up, to return to the emergency department if symptoms worsen or persist or if there are any questions or concerns that arise at home. Response to treatment: the patient's symptoms have mildly improved after treatment, and as a result, I will discharge patient. Special discussion: I discussed with the patient/guardian in detail that at this point there is no indication for admission to the hospital. It is understood, however, that if the symptoms persist or worsen the patient needs to return immediately for re-evaluation. ED course: Pt non-toxic, neg Procal, neg ct head, no evidence of UTI. + chronic drug user with bipolar disorder and subtherapeutic lithium level, which could both explain presentation. She does not seem encephalopathic or septic. + chronic liver problems. Will dc home with instructions to take her medication and avoid illegal drugs. . 22:19 ED course: Pt requests to leave, continuously calling to see when she is being rn discharged. . 03/18 20:12 Order name: CBC with Diff; Complete Time: 22:14 rn 03/18 20:12 Order name: Basic Metabolic Panel; Complete Time: 21:37 rn 03/18 20:12 Order name: Urine Culture rn 03/18 20:12 Order name: Urine Drug Screen; Complete Time: 21:17 rn 03/18 20:12 Order name: Urine Microscopic Only; Complete Time: 21:17 rn 03/18 20:12 Order name: Procalcitonin; Complete Time: 21:37 rn 03/18 20:12 Order name: Blood Culture Adult (2) rn 03/18 20:12 Order name: Acetaminophen; Complete Time: 21:37 rn 03/18 20:12 Order name: ETOH Level; Complete Time: 21:17 rn 03/18 20:12 Order name: Hepatic Function; Complete Time: 21:37 rn 03/18 20:12 Order name: PT-INR; Complete Time: 21:37 rn 03/18 20:12 Order name: Ptt, Activated; Complete Time: 21:37 rn 03/18 20:12 Order name: Salicylate; Complete Time: 21:37 rn 03/18 20:12 Order name: AMMONIA; Complete Time: 21: rn 03/18 20:12 Order name: IV Start; Complete Time: 20:39 rn 03/18 20:12 Order name: Urine Dipstick-Ancillary (obtain specimen); Complete Time: 20:52 rn 03/18 20:12 Order name: XRAY Chest (1 view); Complete Time: 21:17 rn 03/18 20:12 Order name: EKG; Complete Time: 20:13 rn 03/18 20:12 Order name: EKG - Nurse/Tech; Complete Time: 21:06 rn 03/18 20:12 Order name: Labs collected and sent; Complete Time: 20:39 rn 03/18 20:12 Order name: CT Head Brain wo Cont; Complete Time: 21:17 rn 03/18 20:12 Order name: Langeloth; Complete Time: 21:37 rn 03/18 20:12 Order name: Strep; Complete Time: : rn 03/18 20:12 Order name: Flu; Complete Time: 21: rn 03/18 21:01 Order name: CBC Smear Scan; Complete Time: 22:14 EDMS 03/18 21:11 Order name: Urine Dipstick--Ancillary (enter results); Complete Time: 21:17 ar5 03/18 21:26 Order name: Throat Culture EDMS EC:24 Rate is 114 beats/min. Rhythm is regular. QRS [place] is Normal. OR interval is normal. rn QRS interval is normal. QT interval is normal. No Q waves. T waves are Normal. No ST changes noted. Clinical impression: Sinus tachycardia. Interpreted by me. Reviewed by me. Administered Medications: 20:51 Drug: NS 0.9% 1000 ml Route: IV; Rate: 1000 ml; Site: left hand; ea 23:47 Follow up: Response: No adverse reaction; IV Status: Completed infusion; IV Intake: ea 2000ml 21:39 Drug: NS 0.9% 1000 ml Route: IV; Rate: 1000 ml; Site: left hand; ea 23:30 Follow up: Response: No adverse reaction; IV Status: Completed infusion; IV Intake: rr5 1000ml 23:46 Follow up: Response: No adverse reaction; IV Status: Completed infusion ea Disposition: 03/18/20 22:19 Discharged to Home. Impression: Dehydration, Subtherapeutic lithium level, Bipolar disorder. - Condition is Stable. - Discharge Instructions: Dehydration, Adult, Bipolar Disorder. - Medication Reconciliation Form, Thank You Letter, Antibiotic Education, Prescription Opioid Use form. - Follow up: Private Physician; When: As needed; Reason: Recheck today's complaints, Re-evaluation by your physician. - Problem is an ongoing problem. - Symptoms have improved. Signatures: Dispatcher [employer] EDMS Gato Smart MD MD rn Antunez, Elena RN KEYUR Aponte, Betty RN Jonnie Stoll RN rr5 Corrections: (The following items were deleted from the chart) 23:49 22:19 03/18/2020 22:19 Discharged to Home. Impression: Dehydration; Subtherapeutic ea lithium level; Bipolar disorder. Condition is Stable. Forms are Medication Reconciliation Form, Thank You Letter, Antibiotic Education, Prescription Opioid Use. Follow up: Private Physician; When: As needed; Reason: Recheck today's complaints, Re-evaluation by your physician. Problem is an ongoing problem. Symptoms have improved. rn
--- NOTE | 2020-03-18 22:20 | ER ---
Nurse's Notes [facility] Name: Wendi Norton Age: 54 yrs Sex: Female : 1965 Arrival Date: 03/18/2020 Time: 19:46 Bed 4 Private MD: Diagnosis: Dehydration;Subtherapeutic lithium level;Bipolar disorder Presentation: 03/18 19:55 Chief complaint: Spouse and/or significant other states: She is not making sense when ca1 she talks, she has fever off and on. She has infected teeth. She has flu symptoms, chills, body aches, cough, runny nose for a couple of weeks. But her mental status has gotten worse. She can't carry out a conversation. Coronavirus screen: Patient reports a cough. Patient denies shortness of breath or difficulty breathing. Patient reports a measured and/or subjective temperature greater than 100.4F. Patient denies travel on a cruise ship or to a country the [facility] currently lists as an affected area. Patient denies contact with known and/or suspected case of COVID-19. Ebola Screen: Patient negative for fever greater than or equal to 101.5 degrees Fahrenheit, and additional compatible Ebola Virus Disease symptoms Patient denies exposure to infectious person. Patient denies travel to an Ebola-affected area in the 21 days before illness onset. No symptoms or risks identified at this time. Initial Sepsis Screen: Does the patient meet any 2 criteria? Altered Mental Status. HR > 90 bpm. Risk Assessment: Do you want to hurt yourself or someone else? Patient reports no desire to harm self or others. Onset of symptoms was March 18, 2020. 19:55 Method Of Arrival: Wheelchair ca1 19:55 Acuity: RAUL 2 ca1 21:45 Initial Sepsis Screen: Does the patient have a suspected source of infection? No. ea Patient's initial sepsis screen is negative. 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 - Social history:: Smoking status: Patient reports the use of cigarette tobacco products, smokes one-half pack cigarettes per day. - Family history:: not pertinent. - Hospitalizations: : No recent hospitalization is reported. Screenin:05 Abuse screen: Denies threats or abuse. Denies injuries from another. Nutritional rr5 screening: No deficits noted. Tuberculosis screening: No symptoms or risk factors identified. Fall Risk IV access (20 points). Mental Status- Overestimates/Forgets Limitations (15 pts.). Total Singleton Fall Scale indicates Low Risk Score (25-44 pts). Fall prevention measures have been instituted. Side Rails Up X 2 Placed close to Nursing Station Frequent Obs/Assesments occuring As available Patient and Family Educated on Fall Prevention Program and strategies. Assessment: 20:00 General: Appears in no apparent distress. Behavior is agitated. Pain: Denies pain. rr5 Neuro: Level of Consciousness is awake, alert, Oriented to person, place, time, crying, anxious . Cardiovascular: Capillary refill < 3 seconds Patient's skin is warm and dry. Respiratory: Airway is patent Respiratory effort is even, unlabored, Respiratory pattern is regular, symmetrical. GI: No signs and/or symptoms were reported involving the gastrointestinal system. : No signs and/or symptoms were reported regarding the genitourinary system. EENT: No signs and/or symptoms were reported regarding the EENT system. Derm: Skin is intact, is healthy with good turgor, Skin temperature is warm. Musculoskeletal: Circulation, motion, and sensation intact. Capillary refill < 3 seconds. 20:05 Reassessment: , Aman, . ca1 21:45 Reassessment: Pt resting with eyes closed, respirations even and unlabored, chest ea expansions even and symmetrical. No s/s of pain or discomfort noted at this time. 22:34 Reassessment: Patient appears in no apparent distress at this time. for discharge after rr5 fluid infusion. 22:38 Reassessment: Patient and/or family updated on plan of care and expected duration. Pain ea level reassessed. Awaiting for NS bolus to complete per ED physician. 23:45 Reassessment: Patient appears in no apparent distress at this time. Patient is alert, rr5 oriented x 3, equal unlabored respirations, skin warm/dry/pink. IV fluid consumed and terminated, discharge instruction given and explained without complaints made. endorsed to family member. Vital Signs: 19:55 BP 124 / 58; Pulse 112; Resp 18 S; Temp 98.5(O); Pulse Ox 95% on R/A; Weight 90.72 kg ca1 (R); Height 5 ft. 4 in. (162.56 cm) (R); 21:45 BP 134 / 95; Pulse 110; Resp 19; Pulse Ox 99% ; rr5 22:15 BP 115 / 60; Pulse 106; Resp 18; Pulse Ox 97% on R/A; ea 23:15 BP 105 / 66; Pulse 100; Resp 18; Pulse Ox 95% on R/A; ea 23:40 BP 110 / 75; Pulse 101; Resp 17; Temp 98; Pulse Ox 99% ; rr5 19:55 Body Mass Index 34.33 (90.72 kg, 162.56 cm) ca1 ED Course: 19:46 Patient arrived in ED. bp1 20:00 Triage completed. ca1 20:03 Arm band placed on right wrist. ca1 20:06 Gato Smart MD is Attending Physician. rn 20:10 Jonnie Camara RN is Primary Nurse. rr5 20:30 Inserted saline lock: 20 gauge in left hand, using aseptic technique. Blood collected. rr5 20:35 Patient has correct armband on for positive identification. Placed in gown. Bed in low ea position. Call light in reach. monitoring specialist on. Pulse ox on. NIBP on. 20:39 Flu and/or RSV swab sent to lab. Strep swab sent to lab. rr5 20:46 CT Head Brain wo Cont In Process Unspecified. EDMS 20:50 XRAY Chest (1 view) In Process Unspecified. EDMS 21:06 EKG done, by ED staff, reviewed by Gato Smart MD. rr5 23:46 No provider procedures requiring assistance completed. IV discontinued, intact, ea bleeding controlled, No redness/swelling at site. Pressure dressing applied. Administered Medications: 20:51 Drug: NS 0.9% 1000 ml Route: IV; Rate: 1000 ml; Site: left hand; ea 23:47 Follow up: Response: No adverse reaction; IV Status: Completed infusion; IV Intake: ea 2000ml 21:39 Drug: NS 0.9% 1000 ml Route: IV; Rate: 1000 ml; Site: left hand; ea 23:30 Follow up: Response: No adverse reaction; IV Status: Completed infusion; IV Intake: rr5 1000ml 23:46 Follow up: Response: No adverse reaction; IV Status: Completed infusion ea Intake: 23:30 IV: 1000ml; Total: 1000ml. rr5 23:47 IV: 2000ml; Total: 3000ml. ea Outcome: 22:19 Discharge ordered by . rn 23:46 Discharged to home via wheelchair. ea 23:46 Condition: stable 23:46 Discharge instructions given to patient, family, Instructed on discharge instructions, follow up and referral plans. Demonstrated understanding of instructions, follow-up care. 23:49 Patient left the ED. ea Addendum: 03/24/2020 08:03 Addendum: Culture Results: Positive urine culture. Patient was not prescribed a a5 antibiotics at discharge. Report given to KEO for further evaluation and then to fish and game warden for follow up with patient. Phone call Attempt #1 unable to leave voicemail. Signatures: Dispatcher [employer] EDMS Gato Smart MD MD rn Calderon, Audri RN RN aa5 Akua Simons RN Jonnie Owen ea RN RN rr5 Betty Aponte RN RN Hayley Gordon
[2020-03-19 00:58] VITALS: TEMP 98.5
[2020-03-19 01:03] VITALS: BP 105/66; O2SAT 95
--- NOTE | 2020-03-19 07:20 | EKG ---
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
== END 2020-03-18 23:49 | disposition home or self-care (01) ==
LOC: ER 19:39
DX: E86.0 Dehydration (principal); R79.0 Abnormal level of blood mineral; F31.9 Bipolar disorder, unspecified; F17.210 Nicotine dependence, cigarettes, uncomplicated; E11.9 Type 2 diabetes mellitus without complications; Z85.3 Personal history of malignant neoplasm of breast
CPT/HCPCS: 96361; 93005; 87040 ×2; 87070; 87088; 85025; 87086; 80048; 36415; 80320; 82140; 80329 ×2; 85610; 80178; 80076; 87081; 80307 ×8; 85730; 87077; 87186; 84145; 87804 ×2; 70450; 71045; 96360; 99284; J7030 ×3; 81003; 81015

== ENCOUNTER 2020-03-31 22:13 | Emergency (ER) | payer OTHER ==
[2020-03-31] MEDS ORDERED: ROCURONIUM 50 MG/5 ML VIAL IV ONE (22:14)
--- OUTSIDE RECORDS SUMMARY | 2020-03-31 22:15 | XMS REPORT | Clinical Summary ---
:1965 [facility] Address [address] [place] [address] Care Team Providers Name Role Phone Unavailable [...] Not on file Results Not on fileafter 03/31/2019 Insurance Payer Benefit Plan / Group Subscriber ID Type Phone A ddress MEDICARE MEDICARE A B xxxxxxxxxx Medicare MEDICAID MEDICAID [facility] xxxxxxxxx Medicaid Advance Directives For more information, please contact:[place] [address] [place], [place] [phone] Code Status Date Activated Date Inactivated Comments Full Code 04/22/2016 12:20 PM 04/29/2016 5:47 PM This code status was determined by: Patient
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
[2020-03-31] MEDS ORDERED: LORazepam 2 MG/ML VIAL ONE (22:31)
[2020-03-31] MEDS ORDERED: RSI MEDICATION KIT IV ONE (22:35)
[2020-03-31] MEDS ORDERED: NA CHLORIDE 0.9% 1,000 ML ONE (22:35)
[2020-03-31] MEDS ORDERED: propofoL 1,000 MG/100 ML VIAL IV ONE (22:38)
[2020-03-31 22:51] LABS: Absolute Lymphocytes (CBC) 6.2 K/uL (0.7-4.9); Basophils % 0.6 % (0-1.3); Hematocrit 48.1 % (36.0-45.0); Lymphocytes % 27.1 % (15.3-44.8); MPV 9.5 fL (7.6-11.3); RBC Red Blood Cell Count 5.18 M/uL (3.86-4.86)
[2020-03-31] MEDS ORDERED: NA CHLORIDE 0.9% 100 ML IV ONE (22:56)
[2020-03-31] MEDS ORDERED: LEVETIRACETAM 500 MG/5 ML VIAL IV ONE (22:56)
[2020-03-31 22:58] LABS: Protime INR 1.15
[2020-03-31 23:19] LABS: ALT/SGPT 41 U/L (12-78); AST/SGOT 35 U/L (15-37); Alkaline Phosphatase 134 U/L (45-117); BUN Blood Urea Nitrogen 18 mg/dL (7-18); Bilirubin Direct 0.4 mg/dL (0-0.2); Bilirubin Total 1.7 mg/dL (0.2-1.0); Glucose Level 240 mg/dL (74-106); Magnesium 2.4 mg/dL (1.8-2.4); NT PRO-BNP 18 pg/mL (<125); Potassium 4.2 mmol/L (3.5-5.1); Protein, Total 9.4 g/dL (6.4-8.2); Sodium Level 140 mmol/L (136-145); Troponin (Emerg Dept Use Only) < 0.02 ng/mL (0.0-0.045)
[2020-03-31 23:22] LABS: Bicarbonate 14 mmol/L (21-32)
[2020-03-31 23:54] LABS: Blood Morphology Comment NOT SEEN (NOT SEEN); Platelet Estimate ADEQ
[2020-03-31 23:56] LABS: Arterial Blood Carboxyhemoglob 1.8 % (0-1.5); Blood Gas Oxyhemoglobin 97.9 % (94-97); Blood O2 Saturation 99.8 % (92-98.5)
[2020-04-01 00:01] LABS: Barbiturates NEGATIVE (NEGATIVE); Benzodiazepines NEGATIVE (NEGATIVE); Cocaine NEGATIVE (NEGATIVE); METHAMPHETAM NEGATIVE (NEGATIVE); Methadone NEGATIVE (NEGATIVE); Opiates NEGATIVE (NEGATIVE); Phencyclidine NEGATIVE (NEGATIVE); THC Cannibis NEGATIVE (NEGATIVE)
[2020-04-01 00:11] LABS: Urine Blood TRACE (NEG); Urine Glucose NEGATIVE (NEG); Urine Protein 2+ (NEG); Urine Specific Gravity >1.030 (1.005-1.030); Urine pH 5.5 (5.0-7.0)
[2020-04-01] MEDS ORDERED: NA CHLORIDE 0.9% 1,000 ML ONE (00:14)
[2020-04-01] MEDS ORDERED: propofoL 1,000 MG/100 ML VIAL IV ONE ×2 (01:22→03:44)
--- NOTE | 2020-04-01 01:33 | EDPHYS ---
Physician Documentation [facility] Name: Wendi Norton Age: 54 yrs Sex: Female : 1965 Arrival Date: 03/31/2020 Time: 22:19 Bed 3 Private MD: ED Physician Pierce Soares HPI: 03/31 22:41 This 54 yrs old Female presents to ER via Unassigned with complaints of UTI, ms3 Seizure, Altered Mental status. 22:41 The patient presents with a history of multiple seizures, a total of 2, that last 2 ms3 minute(s), Most recent on arrival. Character of seizure(s): Loss of consciousness: the patient did not lose consciousness, Motor activity: generalized, Incontinence: none, Apnea: the patient did not experience apnea, Circulation: the patient did not experience evidence of pulse disturbance, Eye movements: during the seizure the eyes were fixed in one direction, to the right. Seizure onset: today. Context: the seizure(s) was witnessed, by EMS personnel. Seizure Hx: it is unknown whether or not the patient has a previous seizure history. Associated injury: Head/face: Other: Tongue abrasion. EMS care: Ativan, 2 mg(s), IV, with resolution of the seizure, Pt became combative. Current symptoms: confusion. 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 rr5 Historical: - Allergies: 03/31 22:25 NKDA; rr5 - Home Meds: 22:25 Adderall XR Oral 1 cap once daily [Active]; clonazepam 2 mg Oral tab 1 tab daily rr5 [Active]; fluoxetine 20 mg Oral tab 1 tab once daily [Active]; lithium carbonate 300 mg Oral cpER 1 tab nightly [Active]; quetiapine 300 mg Oral tab 1 tab nightly [Active]; Tylenol #3 Oral [Active]; Vicodin 5-300 mg Oral tab 1 tab daily [Active]; - PMHx: 22:25 ADD/ADHD; Asthma; Bipolar disorder; breast cancer- in remission; COPD; Depression; rr5 Diabetes - NIDDM; Diverticulitis; Hepatitis; Pain Management; PTSD; - Immunization history:: Adult Immunizations unknown. - Social history:: Smoking status: unknown. ROS: 22:41 Unable to obtain ROS due to altered mental status. ms3 Exam: 22:41 Constitutional: The patient appears alert, awake, agitated. ms3 22:41 Head/face: Noted is 22:41 Eyes: Pupils: dilated, bilaterally, equal, Extraocular movements: no acute changes, Conjunctiva: normal, Sclera: no appreciated abnormality. 22:41 ENT: Abrasion to left tongue. 22:41 Neck: ROM/movement: is normal, no acute changes. 22:41 Chest/axilla: Inspection: 22:41 Cardiovascular: Rate: tachycardic, actual rate is 120 bpm, Rhythm: regular, Heart sounds: normal, Edema: is not appreciated, JVD: is not appreciated. 22:41 Respiratory: mild respiratory distress is noted, Respirations: nasal flaring, Breath sounds: rales, that are moderate, are heard diffusely. 22:41 Abdomen/GI: Inspection: obese Bowel sounds: normal, Palpation: abdomen is soft and non-tender, Indicators: 22:41 Musculoskeletal/extremity: Extremities: all appear grossly normal, with no appreciated pain with palpation, ROM: no acute changes, Circulation is intact in all extremities. 22:41 Skin: Appearance: Color: pale, Temperature: normal temperature, Moisture: normal moisture, ecchymosis, not noted, diaphoresis is not appreciated. 22:41 Neuro: Mentation: confused, unable to follow commands. 04/01 00:41 ECG was reviewed by the Attending Physician. ms3 Vital Signs: 03/31 22:25 BP 144 / 69; Pulse 92; Resp 25; Temp 98; Pulse Ox 94% ; Weight 100 kg; rr5 22:29 BP 158 / 69; Pulse 140; Resp 30; Pulse Ox 94% on 15% Non-rebreather mask; rr5 22:33 BP 164 / 80; Pulse 137; Resp 24; Pulse Ox 90% on 15% Non-rebreather mask; rr5 22:40 BP 136 / 60; Pulse 132; Resp 16; Pulse Ox 98% on 100% FiO2 ETT vent; rr5 23:00 BP 116 / 76; Pulse 131; Resp 16; Pulse Ox 98% on 100% FiO2 ETT vent; rr5 23:15 BP 155 / 85; Pulse 118; Resp 16; Temp 98.2; Pulse Ox 98% on 50% FiO2 ETT vent; rr5 23:30 BP 132 / 92; Pulse 125; Resp 16; Temp 98.3; Pulse Ox 98% on 50% FiO2 ETT vent; rr5 04/01 00:00 BP 162 / 98; Pulse 125; Resp 16; Temp 98.5; Pulse Ox 98% on 50% FiO2 ETT vent; rr5 00:30 BP 167 / 111; Pulse 111; Resp 16; Temp 98.; Pulse Ox 97% on 50% FiO2 ETT vent; rr5 00:53 BP 111 / 62; Pulse 126; Resp 16; Temp 98.1; Pulse Ox 96% 50% ; rr5 02:00 BP 109 / 68; Pulse 103; Resp 16; Temp 98; Pulse Ox 98% on 50% FiO2 ETT vent; rr5 03:00 BP 131 / 85; Pulse 110; Resp 16; Temp 98.3(R); Pulse Ox 100% on 45% FiO2 ETT vent; rr5 03:30 BP 129 / 78; Pulse 105; Resp 16; Temp 98.4; Pulse Ox 100% on 45% FiO2 ETT vent; rr5 Procedures: 03/31 22:53 Intubation: Ventilated with 100% NRB prior to procedure. Intubated orally using ms3 Glidescope #4 with 7.5 mm ETT. was successful on first attempt. Ventilated with Ambu bag. ventilator. Tube secured with ETT nettles measured 20 cm at teeth. Placement verified by CXR, CO2 detector with (+) color change, auscultating bilateral breath sounds, O2 saturation after procedure was 98 %. Patient tolerated well. MDM: 22:40 Patient medically screened. ms3 22:41 Differential diagnosis: drug overdose, seizure, . ms3 22:58 ED course: Pt WBC 22.9, likely due to seizure activity.. ms3 04/01 00:41 Data reviewed: vital signs, nurses notes, EKG. ms3 00:45 Data interpreted: threat monitoring analyst: Pulse oximetry:. Test interpretation: by ED ms3 physician or midlevel provider: ECG, plain radiologic studies. Counseling: I had a detailed discussion with the patient and/or guardian regarding:. 01:16 ED course: Discussed case with Neurology. Possible ED to ED transfer.. ms3 01:30 ED course: Discussed case with Dr Clayton. He accepts pt to [facility] Emergency Department [address] 03/31 22:31 Order name: Basic Metabolic Panel; Complete Time: 00:34 [facility] 03/31 22:31 Order name: CBC with Diff; Complete Time: 00:34 [facility] 03/31 22:31 Order name: LFT's; Complete Time: 00:34 [facility] 03/31 22:31 Order name: Magnesium; Complete Time: 00:34 [facility] 03/31 22:31 Order name: NT PRO-BNP; Complete Time: 00:34 [facility] 03/31 22:31 Order name: PT-INR; Complete Time: 00:34 [facility] 03/31 22:31 Order name: Troponin (emerg Dept Use Only); Complete Time: 00:34 [facility] 03/31 22:31 Order name: [place]; Complete Time: 00:34 [facility] 03/31 22:31 Order name: ETOH Level; Complete Time: 00:34 [facility] 03/31 22:31 Order name: Urine Drug Screen; Complete Time: 00:34 [facility] 03/31 22:31 Order name: Tylenol Level; Complete Time: 00:34 [facility] 03/31 22:45 Order name: Glucose, Ancillary Testing; Complete Time: 23:00 [facility] 03/31 22:56 Order name: Manual Differential; Complete Time: 00:34 [facility] 03/31 23:43 Order name: ABG; Complete Time: 00:34 [facility] 03/31 22:31 Order name: XRAY Chest (1 view) [facility] 03/31 22:31 Order name: EKG; Complete Time: 22:32 [facility] 03/31 22:31 Order name: Cardiac monitoring; Complete Time: 00:45 [facility] 03/31 22:31 Order name: EKG - Nurse/Tech; Complete Time: 00:45 [facility] 03/31 22:31 Order name: CT Head Brain wo Cont [facility] 03/31 23:49 Order name: Urine Dipstick--Ancillary (enter results); Complete Time: 00:34 [facility] 04/01 01:00 Order name: Urine Microscopic Only; Complete Time: 02:04 [facility] 04/01 01:00 Order name: Urine Culture [facility] 03/31 22:31 Order name: IV Saline Lock; Complete Time: 00:45 [facility] 03/31 22:31 Order name: Labs collected and sent; Complete Time: 00:45 [facility] 03/31 22:31 Order name: O2 Per Protocol; Complete Time: 01:04 [facility] 03/31 22:31 Order name: O2 Sat Monitoring; Complete Time: 00:02 [facility] 04/01 01:56 Order name: Restraint:Non-Violent; Complete Time: 03:01 rr5 EC:41 Rate is 147 beats/min. Rhythm is regular. QRS [place] is Normal. [place] interval is normal. ms3 QRS interval is normal. QT interval is normal. Clinical impression: Abnormal EKG without significant change. Interpreted by me. Administered Medications: 03/31 22:25 Drug: Ativan 2 mg Route: IVP; Site: right forearm; rr5 23:25 Follow up: Response: No adverse reaction rr5 22:33 Drug: Propofol 100 mg Route: IVP; Site: right forearm; rr5 23:30 Follow up: Response: No adverse reaction rr5 22:34 Drug: Rocuronium 100 mg Route: IVP; Site: right forearm; rr5 23:30 Follow up: Response: No adverse reaction rr5 22:45 Drug: Propofol 5 mcg/kg/min Route: IV; Rate: calculated rate; Site: right forearm; rr5 23:00 Follow up: Rate change 10 mcg/kg/min rr5 23:10 Follow up: Rate change 15 mcg/kg/min rr5 23:30 Follow up: Rate change 20 mcg/kg/min rr5 23:40 Follow up: Rate change 30 mcg/kg/min rr5 04/01 00:10 Follow up: Rate change 40 mcg/kg/min rr5 00:25 Follow up: Rate change 50 mcg/kg/min rr5 03/31 23:00 Drug: NS 0.9% 1000 ml Route: IV; Rate: 1 bolus; Site: right forearm; rr5 04/01 00:00 Follow up: Response: No adverse reaction; IV Status: Completed infusion; IV Intake: rr5 1000ml 03/31 23:30 Drug: Keppra 1000 mg Route: IV; Rate: calculated rate; Site: right hand; rr5 04/01 00:00 Follow up: Response: No adverse reaction; IV Status: Completed infusion; IV Intake: rr5 100ml 01:00 Drug: NS 0.9% 1000 ml Route: IV; Rate: 100 ml/hr; Site: right forearm; rr5 02:30 Drug: Versed 1 mg/hr, custom 1 mg/hr Route: IV; Rate: calculated rate; Site: left hand; rr5 03:11 Follow up: Rate change 2 mg/hr rr5 Disposition: 01:31 Co-signature as Attending Physician, Pierce Soares DO. ms3 Disposition: 04/01/20 01:[address] [facility]. Diagnosis are Acute respiratory failure, Status Epilepticus, Abrasion of Left side of tongue. - Reason for transfer: Higher level of care. - Accepting physician is Glendy Clayton MD. - Condition is Critical. - Problem is new. - Symptoms have improved. Critical care time excluding procedures: 00:46 Critical care time: Bedside Care: 35 minutes, Conultation, Review of labs and ms3 treatment: 30 minutes. Total time: 65 minutes Signatures: Dispatcher [employer] Jose Miguel Mclaughlin PA PA jmm Roque, Raymond RN RN rr5 Pierce Soares DO DO ms3 Corrections: (The following items were deleted from the chart) 03:55 01:32 04/01/2020 01:[address] [facility]. rr5 Diagnosis is Acute respiratory failure; Status Epilepticus; Abrasion of Left side of tongue. Reason for transfer: Higher level of care. Accepting physician is Glendy Clayton MD. Condition is Critical. Problem is new. Symptoms have improved. ms3
--- NOTE | 2020-04-01 01:33 | ER ---
Nurse's Notes [facility] Name: Wendi Norton Age: 54 yrs Sex: Female : 1965 Arrival Date: 03/31/2020 Time: 22:19 Bed 3 Private MD: Diagnosis: Acute respiratory failure;Status Epilepticus;Abrasion of Left side of tongue Presentation: 03/31 22:25 Chief complaint: EMS states: we were tone out for a complaint of UTI. when we arrived rr5 patient is ambulatory awake and alert she walked going to ambulance car. while en route patient inside the truck had seizure. 22:25 Coronavirus screen: unable to obtain, patient is combative. Ebola Screen: Patient rr5 negative for fever greater than or equal to 101.5 degrees Fahrenheit, and additional compatible Ebola Virus Disease symptoms Patient denies exposure to infectious person. Patient denies travel to an Ebola-affected area in the 21 days before illness onset. Initial Sepsis Screen: Does the patient meet any 2 criteria? HR > 90 bpm. No. Patient's initial sepsis screen is negative. Does the patient have a suspected source of infection? No. Patient's initial sepsis screen is negative. Risk Assessment: Do you want to hurt yourself or someone else? Patient reports no desire to harm self or others. Note patient came in via EMS a case of post seizure, restless, combative, dry blood noted on her mouth, positive tongue bite. Onset of symptoms was March 31, 2020. Care prior to arrival: Medication(s) given: ativan 2 mg/IV given by EMS. 22:25 Method Of Arrival: EMS: [facility] rr5 22:25 Acuity: RAUL 2 rr5 22:25 Note states by EMS the patient is not taking her bipolar medication. but today she took rr5 her seroquel medication. pupils dilated. 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 rr5 Historical: - Allergies: 03/31 22:25 NKDA; rr5 - Home Meds: 22:25 Adderall XR Oral 1 cap once daily [Active]; clonazepam 2 mg Oral tab 1 tab daily rr5 [Active]; fluoxetine 20 mg Oral tab 1 tab once daily [Active]; lithium carbonate 300 mg Oral cpER 1 tab nightly [Active]; quetiapine 300 mg Oral tab 1 tab nightly [Active]; Tylenol #3 Oral [Active]; Vicodin 5-300 mg Oral tab 1 tab daily [Active]; - PMHx: 22:25 ADD/ADHD; Asthma; Bipolar disorder; breast cancer- in remission; COPD; Depression; rr5 Diabetes - NIDDM; Diverticulitis; Hepatitis; Pain Management; PTSD; - Immunization history:: Adult Immunizations unknown. - Social history:: Smoking status: unknown. Screenin:25 Abuse screen: unable to obtain. rr5 22:25 Nutritional screening: No deficits noted. Tuberculosis screening: No symptoms or risk rr5 factors identified. Fall Risk Secondary diagnosis (15 points) seizures, IV access (20 points). Gait- Impaired (20 pts.). Mental Status- Overestimates/Forgets Limitations (15 pts.). Total Singleton Fall Scale indicates High Risk Score (45 or more points). Fall prevention measures have been instituted. Side Rails Up X 2 Placed Close to Nursing Station Frequent Obs/Assessments Occuring As available patient and family educated on Fall Prevention Program and Strategies. Assessment: 22:20 General: Appears distressed, Behavior is combative, restless. rr5 22:20 Pain: Unable to use pain scale. Patient is disoriented. Neuro: Level of Consciousness rr5 is confused, Oriented to none. Cardiovascular: Capillary refill < 3 seconds Patient's skin is warm and dry. Respiratory: Airway is patent Respiratory effort is even, Respiratory pattern is tachypnea. GI: Abdomen is round non-distended. : Parent/caregiver report the patient having burning with urination. EENT: tongue bite noted.. Derm: Skin is intact, Skin is pink, warm \T\ dry. Musculoskeletal: Capillary refill < 3 seconds. 22:25 Neuro: Seizure activity noted at this time. Type of seizure: tonic-clonic seizure. rr5 Seizure lasted approximately 1 minutes. ED provider at bedside, hooked to oxygen and suctioning done. 22:56 Reassessment: Received critical WBC of 22.9 from lab. Reported to Dr Soares. 23:05 Reassessment: Patient appears in no apparent distress at this time. send to CT scan rr5 assisted by CT staff and RT. vitally stable. 23:20 Reassessment: Patient appears in no apparent distress at this time. vitally stable. rr5 back from CT scan, suctioning oral and via ET done thick blood secretion noted. 23:40 Reassessment: propofol titrated. patient opening eyes. moving extremities. rr5 04/01 00:20 Reassessment: Patient appears in no apparent distress at this time. No changes from rr5 previously documented assessment. 01:00 Reassessment: Patient appears in no apparent distress at this time. patient for rr5 transfer awaiting for acceptance. patient open eyes and keeps on moving her arms, two point restraint applied. 02:00 Reassessment: report given to [facility] ER and accepted the case. patient rr5 keeps on moving maintain on 2 point restraint, ED provider aware with order made and carried out for versed drip. 02:22 Reassessment: patient family member updated for the plan of care. rr5 02:30 Reassessment: Patient appears in no apparent distress at this time. keeps on moving rr5 versed drip increased to 2mg/hr. 03:35 Reassessment: Patient appears in no apparent distress at this time. report given to EMS rr5 intubated ET 7.5 22cm lip level, with OGT F16, IV cannula G18 at right forearm ongoing propofol drip at 50 mcg/kg/min, G22 at right hand ongoing NS 100 ml/hr side drip of versed drip at 2mg/hr, with amaya catheter to urine bag. vitally stable. Vital Signs: 03/31 22:25 BP 144 / 69; Pulse 92; Resp 25; Temp 98; Pulse Ox 94% ; Weight 100 kg; rr5 22:29 BP 158 / 69; Pulse 140; Resp 30; Pulse Ox 94% on 15% Non-rebreather mask; rr5 22:33 BP 164 / 80; Pulse 137; Resp 24; Pulse Ox 90% on 15% Non-rebreather mask; rr5 22:40 BP 136 / 60; Pulse 132; Resp 16; Pulse Ox 98% on 100% FiO2 ETT vent; rr5 23:00 BP 116 / 76; Pulse 131; Resp 16; Pulse Ox 98% on 100% FiO2 ETT vent; rr5 23:15 BP 155 / 85; Pulse 118; Resp 16; Temp 98.2; Pulse Ox 98% on 50% FiO2 ETT vent; rr5 23:30 BP 132 / 92; Pulse 125; Resp 16; Temp 98.3; Pulse Ox 98% on 50% FiO2 ETT vent; rr5 04/01 00:00 BP 162 / 98; Pulse 125; Resp 16; Temp 98.5; Pulse Ox 98% on 50% FiO2 ETT vent; rr5 00:30 BP 167 / 111; Pulse 111; Resp 16; Temp 98.; Pulse Ox 97% on 50% FiO2 ETT vent; rr5 00:53 BP 111 / 62; Pulse 126; Resp 16; Temp 98.1; Pulse Ox 96% 50% ; rr5 02:00 BP 109 / 68; Pulse 103; Resp 16; Temp 98; Pulse Ox 98% on 50% FiO2 ETT vent; rr5 03:00 BP 131 / 85; Pulse 110; Resp 16; Temp 98.3(R); Pulse Ox 100% on 45% FiO2 ETT vent; rr5 03:30 BP 129 / 78; Pulse 105; Resp 16; Temp 98.4; Pulse Ox 100% on 45% FiO2 ETT vent; rr5 ED Course: 03/31 22:19 Patient arrived in ED. lp1 22:20 Inserted saline lock: 18 gauge in right forearm, using aseptic technique. Blood rr5 collected. 22:25 Patient has correct armband on for positive identification. Placed in gown. Bed in low rr5 position. Side rails up X2. Seizure precautions initiated. 22:25 front desk monitor on. Pulse ox on. NIBP on. rr5 22:27 EKG done, by ED staff, reviewed by Pierce Soares DO. rr5 22:27 Placed nasal trumpet 26 Fr via left nare. rr5 22:30 Arm band placed on right wrist. rr5 22:36 Assisted provider with intubation using 7.5 mm ETT via oral route. ET tube secured at rr5 22cm at the lips. Set up intubation tray. Intubated by Pierce Soares DO Placement verified by CO2 detector w/ + color change, auscultating bilateral breath sounds, CXR, Patient tolerated well. assisted by RT leonard. 22:39 Pierce Soares DO is Attending Physician. ms3 22:54 XRAY Chest (1 view) In Process Unspecified. EDMS 23:05 Robinson gastric tube greek 16 inserted by benedicto, verified by auscultation, xray. Assist rr5 ventilation. 23:19 CT Head Brain wo Cont In Process Unspecified. EDMS 23:30 Inserted saline lock: 22 gauge in right hand, using aseptic technique. rr5 23:35 Amaya cath inserted, using sterile technique, 16 Fr., by me, balloon inflated, to rr5 gravity drainage, urine specimen collected. 23:49 Jonnie Camara, RN is Primary Nurse. rr5 04/01 00:24 Triage completed. rr5 00:35 Suctioned orally - moderate amount thick bloody sputum. via ETT - moderate amount thick rr5 bloody sputum. 02:[address] Soares requested Versed gtt for sedation. 25mg Versed in 50ml NS bag mw prepared. IV to be infused at 1-5mg/hr. Administered Medications: 03/31 22:25 Drug: Ativan 2 mg Route: IVP; Site: right forearm; rr5 23:25 Follow up: Response: No adverse reaction rr5 22:33 Drug: Propofol 100 mg Route: IVP; Site: right forearm; rr5 23:30 Follow up: Response: No adverse reaction rr5 22:34 Drug: Rocuronium 100 mg Route: IVP; Site: right forearm; rr5 23:30 Follow up: Response: No adverse reaction rr5 22:45 Drug: Propofol 5 mcg/kg/min Route: IV; Rate: calculated rate; Site: right forearm; rr5 23:00 Follow up: Rate change 10 mcg/kg/min rr5 23:10 Follow up: Rate change 15 mcg/kg/min rr5 23:30 Follow up: Rate change 20 mcg/kg/min rr5 23:40 Follow up: Rate change 30 mcg/kg/min rr5 04/01 00:10 Follow up: Rate change 40 mcg/kg/min rr5 00:25 Follow up: Rate change 50 mcg/kg/min rr5 03/31 23:00 Drug: NS 0.9% 1000 ml Route: IV; Rate: 1 bolus; Site: right forearm; rr5 04/01 00:00 Follow up: Response: No adverse reaction; IV Status: Completed infusion; IV Intake: rr5 1000ml 03/31 23:30 Drug: Keppra 1000 mg Route: IV; Rate: calculated rate; Site: right hand; rr5 04/01 00:00 Follow up: Response: No adverse reaction; IV Status: Completed infusion; IV Intake: rr5 100ml 01:00 Drug: NS 0.9% 1000 ml Route: IV; Rate: 100 ml/hr; Site: right forearm; rr5 02:30 Drug: Versed 1 mg/hr, custom 1 mg/hr Route: IV; Rate: calculated rate; Site: left hand; rr5 03:11 Follow up: Rate change 2 mg/hr rr5 Intake: 00:00 IV: 100ml; Total: 100ml. rr5 00:00 IV: 1000ml; Total: 1100ml. rr5 Outcome: 01:32 ER care complete, transfer ordered by . ms3 03:55 Patient left the ED. rr5 Signatures: Dispatcher [employer] EDMS Haylee Hernandez RN RN Benedicto Fischer RN RN lp1 Jonnie Camara RN RN rr5 Tiffany Greene RN Pierce Lewis DO DO ms3 Corrections: (The following items were deleted from the chart) 00:41 03/31 22:33 Propofol 5 mcg/kg/min IV at calculated rate in right forearm rr5 rr5 04/01 02:18 01:00 Reassessment: Patient appears in no apparent distress at this time. patient for rr5 transfer awaiting for accpetance rr5
[2020-04-01 01:35] LABS: Urine Bacteria <20 /HPF (<20); Urine Culture Reflex Order NOT NEEDED; Urine Urothelial Cells <5 /HPF (NONE SEEN)
[2020-04-01 01:36] LABS: Urine RBC NONE SEEN /HPF (NONE SEEN)
[2020-04-01] MEDS ORDERED: MIDAZOLAM HCL 2 MG/2 ML INJ ONE ×3 (02:19→02:34)
[2020-04-01] MEDS ORDERED: NA CHLORIDE 0.9% 50 ML IV ONE (02:35)
[2020-04-01] MEDS ORDERED: NA CHLORIDE 0.9% 500 ML ONE (02:47)
[2020-04-01 04:40] VITALS: O2SAT 100
[2020-04-01 04:42] VITALS: BP 129/78; TEMP 98.4
--- NOTE | 2020-04-01 08:52 | EKG ---
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
--- NOTE | 2020-04-01 09:13 | RAD REPORT ---
EXAM DESCRIPTION: Joel Single View03/31/2020 10:54 pm CLINICAL HISTORY: Shortness of breath COMPARISON: Mar 18 2020 FINDINGS: The lungs appear clear of acute infiltrate. The heart is mildly enlarged. Endotracheal tube has its tip well above the esmer. Nasogastric tube is present stomach
--- NOTE | 2020-04-01 09:49 | RAD REPORT ---
EXAM DESCRIPTION: CT - Head Brain Wo Cont - 04/01/2020 1:01 am CLINICAL HISTORY: The patient is 54 years old and is Female; SEIZURE TECHNIQUE: Axial computed tomography images of the head/brain without intravenous contrast. Sagitt al and coronal reformatted images were created and reviewed. This CT exam was performed using one o r more of the following dose reduction techniques: automated exposure control, adjustment of the mA and/or kV according to patient size, and/or use of iterative reconstruction technique. COMPARISON: CT of the head March 18, 2020 FINDINGS: BRAIN: Unremarkable. The vergara-white matter differentiation is preserved . No hemorrhag e. No significant white matter disease. No edema. No extra-axial fluid collections. VENTRICLES: Unremarkable. No ventriculomegaly. BONES/JOINTS: No acute fracture. SOFT TISSUES: Unremarkable. SINUSES: Unremarkable as visualized. No acute sinusitis. MASTOID AIR CELLS: Unremarkable as visualized. No mastoid effusion. ORBITS: Unremarkable as visualized. IMPRESSION: No acute intracranial findings. Electronically signed by: Sandra Lara MD 03/31/2020 11:37 PM CDT Due to temporary technical issues with the PACS/Fluency reporting system, reports are being signed by the in house radiologist as a courtesy to ensure prompt reporting. The interpreting radiologist is f ully responsible for the content of the report.
== END 2020-04-01 03:55 | disposition short-term general hospital (02) ==
LOC: ER 22:13
PROC: 0BH17EZ Insertion of Endotracheal Airway into Trachea, Via Natural or Artificial Opening (ICD-10-PCS; principal; 2020-04-01)
PROC: 5A1935Z Respiratory Ventilation, Less than 24 Consecutive Hours (ICD-10-PCS; 2020-04-01)
DX: J96.00 Acute respiratory failure, unspecified whether with hypoxia or hypercapnia (principal); G40.901 Epilepsy, unspecified, not intractable, with status epilepticus; S00.512A Abrasion of oral cavity, initial encounter; F31.9 Bipolar disorder, unspecified; F43.10 Post-traumatic stress disorder, unspecified; E11.9 Type 2 diabetes mellitus without complications; J44.9 Chronic obstructive pulmonary disease, unspecified; F90.9 Attention-deficit hyperactivity disorder, unspecified type
CPT/HCPCS: 93005; 87088; 85025; 80048; 36415; 80320; 83735; 80329; 85610; 80178; 82947; 80076; 80307 ×8; 81003; 81015; 84484; 83880; 70450; 71045; 94002; 82805; 31500; 51702; 99291; 99292; J2704 ×3; J2250 ×3; J1953; J7040; J7030 ×2; 87086

== ENCOUNTER 2020-07-03 12:54 | Emergency (ER) | payer OTHER ==
--- OUTSIDE RECORDS SUMMARY | 2020-07-03 12:58 | XMS REPORT | Clinical Summary ---
:1965 Author Organization [facility] Address [address] [place] [address] Care Team Providers Name Role Phone Unavailable Primary Care Provider Unavailable Allergies No Known Allergies Medications Medication Sig Dispensed Refills Start Date End Date Status anastrozole Take 1 mg by mouth 0 Active (ARIMIDEX) 1 mg daily. tablet umeclidinium-anton Inhale 1 puff by 0 Active nteroL (ANORO mouth via inhaler ELLIPTA) 62.5-25 daily. mcg/actuation DsDv acetaminophen-cod Take 1 tablet by 0 Active eine (TYLENOL #3) mouth every 8 300-30 mg per (eight) hours as tablet needed (severe pain) . albuterol HFA Inhale 2 puffs by 1 Inhaler 0 04/15/2020 02 Active (VENTOLIN HFA) 90 mouth via inhaler 1 mcg/actuation every 6 (six) inhaler hours as needed for Wheezing. QUEtiapine Take 4 tablets 0 04/15/2020 Act rex (SEROQUEL) 50 MG (200 mg total) by tablet mouth 2 (two) times daily. lithium 150 MG Take 4 capsules 0 04/15/2020 Active capsule (600 mg total) by mouth 2 (two) times daily with breakfast and dinner. QUEtiapine Take 100 mg by 0 Disc ontinued (SEROQUEL) 100 MG mouth nightly. 0 tablet lithium 150 MG Take 300 mg by 0 Discontinued capsule mouth. 0 FLUOXETINE, BULK, 40 mg by 0 Di scontinued MISC Miscellaneous 0 route . clonazePAM Take 2 mg by mouth 0 Discontinued (KLONOPIN) 2 MG 2 (two) times 0 tablet daily as needed for Anxiety. dextroamphetamine Take 10 mg by 0 04/01/20 2 Discontinued -amphetamine 5 mg mouth. 0 Tab pregabalin Take 50 mg by 0 Disco ntinued (LYRICA) 50 MG mouth 3 (three) 0 capsule times daily. topiramate Take 50 mg by 0 Disco ntinued (TOPAMAX) 50 MG mouth 2 (two) 0 tablet times daily. dextroamphetamine dextroamphetamine- 0 Discontinued -amphetamine amphetamine 20 mg 0 (ADDERALL) 20 mg tablet Tab tablet FLUoxetine Take 20 mg by 0 Disco ntinued (PROZAC) 20 MG mouth daily. 0 tablet lithium 300 MG lithium carbonate 0 04/20/2016 Discontinued capsule 300 mg capsule 0 QUEtiapine quetiapine 300 mg 0 11/22/2019 Discontinued (SEROQUEL) 300 MG tablet 0 tablet HYDROcodone-aceta Take by mouth. 0 02 Discontinued minophen 0 (VICODIN) 5-300 mg Tab FLUoxetine Take 1 tablet (10 0 04/13/2020 Discontinued (PROZAC) 10 MG mg total) by mouth 0 tablet daily. QUEtiapine Take 3 tablets 0 04/14/2020 Dis continued (SEROQUEL) 50 MG (150 mg total) by 0 tablet mouth 2 (two) times daily. lithium 150 MG Take 3 capsules 0 04/15/2020 04/15/20 2 Discontinued capsule (450 mg total) by 0 mouth 2 (two) times daily with breakfast and dinner. Active Problems Problem Noted Date E-coli UTI 04/08/2020 Tobacco abuse 04/04/2020 History of hepatitis C 04/02/2020 Overview: Overview: Per ID team: "She denies blood transfusi on before 1991, but she recalled using dilaudid IV by herself and possible sharing needles." Completed 12 weeks of Harvoni under care of Dr. Manley in January 2019. 08: 25 HepC RNA PCR Qnt-MayoUndetectedIU/mL (Undetected) Witnessed seizure-like activity 04/01/2020 Anxiety and depression 04/01/2020 Obesity (BMI 30-39.9) 04/01/2020 Hypertension 05/31/2019 Osteoarthritis 05/29/2019 Overview: Overview: 2014: IMPRESSION: 1. Small central disc herniation at L2-L 3 with minimal indentation of the thecal sac and mild narrowing of the spi nal canal. 2. Changes of degenerative disc disease and facet degenerative disease throughout the lumbar spine as described above. Portal hypertension 05/14/2019 Overview: Overview: 05/11/2019: Hepatosplenomegaly. There are findings s uggestive of portal hypertension. 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 Lab Results Component Value Date HGB 12.3 05/31/2019 HGB 10.7 (L) 05/27/2019 HGB See Note (A) 05/27/2019 HGB 10.5 (L) 05/24/2019 HGB 10.3 (L) 05/23/2019 HCT 38.1 05/31/2019 HCT 34.5 (L) 05/27/2019 HCT See Note (A) 05/27/2019 HCT 34.5 (L) 05/24/2019 HCT 33.8 (L) 05/23/2019 Bipolar disorder with psychotic features 07/08/2018 Chronic pain 12/07/2017 Estrogen receptor positive status (ER+) 10/12/2017 Malignant neoplasm of central portion of left female b reast 10/12/2017 Severe bipolar I disorder, current or most recent epis ode depressed 09/18/2006 Adjustment disorder with depressed mood 09/18/2006 Resolved Problems Problem Noted Date Resolved Date Leukocytosis 04/04/2020 04/08/2020 Shortness of breath 04/22/2016 04/08/2020 Encounters Date Type Specialty Care Team Description 04/01/2020 - Hospital Encounter General Internal Glendy Clayton MD Status epilepticus (HCC) (Primary Dx); 04/16/2020 Medicine Kirit De La Cruz, Acute respi ratory failure, unspecified whether with hypoxia or hypercapnia (HCC); MD Chung; Melody Burton Anxiety and depression; MD Sandra Severe bipolar I disorder, current or mo st recent episode depressed (HCC); Samantha Lanier Manic state (H CC); MD Divine Bipolar affective disorder, current epis ode manic with psychotic symptoms (HCC); Arturo Downs, Bipolar dis order with psychotic features (HCC); E-coli UTI; Obesity (BMI 30 -39.9); Witnessed seizu re-like activity (HCC) 04/01/2020 Orders Only General Internal Medicine 04/01/2020 Travel after 07/03/2019 Social History Tobacco Use Types Packs/Day Years Used Date Current Every Day Smoker Smokeless Tobacco: Never Used Alcohol Use Drinks/Week oz/Week Comments No Sex Assigned at Date Recorded Not on file Job Start Date Occupation Industry Not on file Not on file Not on file Travel History Travel Start Travel End No recent travel history available. Last Filed Vital Signs Vital Sign Reading Time Taken Blood Pressure 115/75 04/16/2020 6:55 AM CDT Pulse 104 04/16/2020 6:55 AM CDT Temperature 36.4 C (97.5 F) 04/16/2020 6:55 AM CDT Respiratory Rate 16 04/16/2020 6:55 AM CDT Oxygen Saturation 93% 04/16/2020 6:55 AM CDT Inhaled Oxygen Concentration 60% 04/01/2020 7:19 AM CDT Weight 91.9 kg (202 lb 9.6 oz) 04/04/2020 10:17 AM CDT Height 161 cm (5' 3.39") 04/01/2020 1:00 PM CDT Body Mass Index 35.45 04/04/2020 10:17 AM CDT Plan of Treatment Not on file Procedures Procedure Name Priority Date/Time Associated Comments Diagnosis RHYTHM STRIP - SCAN 04/17/2020 3:11 PM CDT POCT-GLUCOSE METER Routine 04/15/2020 10:05 Resul ts for this PM CDT procedure are i n the results section. POCT-GLUCOSE METER Routine 04/15/2020 12:44 Resul ts for this PM CDT procedure are i n the results section. POCT-GLUCOSE METER Routine 04/15/2020 8:15 Resul ts for this AM CDT procedure are i n the results section. POCT-GLUCOSE METER Routine 04/14/2020 9:19 Resul ts for this PM CDT procedure are i n the results section. POCT-GLUCOSE METER Routine 04/13/2020 5:03 Resul ts for this PM CDT procedure are i n the results section. POCT-GLUCOSE METER Routine 04/13/2020 11:55 Resul ts for this AM CDT procedure are i n the results section. POCT-GLUCOSE METER Routine 04/13/2020 8:22 Resul ts for this AM CDT procedure are i n the results section. POCT-GLUCOSE METER Routine 04/12/2020 8:48 Resul ts for this PM CDT procedure are i n the results section. POCT-GLUCOSE METER Routine 04/12/2020 5:18 Resul ts for this PM CDT procedure are i n the results section. POCT-GLUCOSE METER Routine 04/12/2020 12:10 Resul ts for this PM CDT procedure are i n the results section. POCT-GLUCOSE METER Routine 04/12/2020 8:32 Resul ts for this AM CDT procedure are i n the results section. LITHIUM LEVEL Routine 04/12/2020 4:26 Results fo r this AM CDT procedure are i n the results section. POCT-GLUCOSE METER Routine 04/11/2020 9:49 Resul ts for this PM CDT procedure are i n the results section. POCT-GLUCOSE METER Routine 04/11/2020 4:42 Resul ts for this PM CDT procedure are i n the results section. POCT-GLUCOSE METER Routine 04/11/2020 10:52 Resul ts for this AM CDT procedure are i n the results section. POCT-GLUCOSE METER Routine 04/11/2020 6:55 Resul ts for this AM CDT procedure are i n the results section. POCT-GLUCOSE METER Routine 04/10/2020 8:46 Resul ts for this PM CDT procedure are i n the results section. POCT-GLUCOSE METER Routine 04/10/2020 5:42 Resul ts for this PM CDT procedure are i n the results section. POCT-GLUCOSE METER Routine 04/10/2020 11:07 Resul ts for this AM CDT procedure are i n the results section. POCT-GLUCOSE METER Routine 04/10/2020 7:12 Resul ts for this AM CDT procedure are i n the results section. CBC W/PLT COUNT & AUTO Routine 04/10/2020 3:58 R esults for this DIFFERENTIAL AM CDT procedure are i n the results section. BASIC METABOLIC PANEL Routine 04/10/2020 3:58 Re sults for this (7) AM CDT procedure are i n the results section. CBC W/PLT COUNT & AUTO Routine 04/10/2020 3:58 R esults for this DIFFERENTIAL AM CDT procedure are i n the results section. POCT-GLUCOSE METER Routine 04/09/2020 9:30 Resul ts for this PM CDT procedure are i n the results section. POCT-GLUCOSE METER Routine 04/09/2020 5:05 Resul ts for this PM CDT procedure are i n the results section. POCT-GLUCOSE METER Routine 04/09/2020 7:13 Resul ts for this AM CDT procedure are i n the results section. LITHIUM LEVEL Routine 04/09/2020 4:06 Results fo r this AM CDT procedure are i n the results section. POCT-GLUCOSE METER Routine 04/08/2020 9:22 Resul ts for this PM CDT procedure are i n the results section. POCT-GLUCOSE METER Routine 04/08/2020 6:08 Resul ts for this PM CDT procedure are i n the results section. POCT-GLUCOSE METER Routine 04/08/2020 12:36 Resul ts for this PM CDT procedure are i n the results section. CBC W/PLT COUNT & AUTO Routine 04/08/2020 3:42 R esults for this DIFFERENTIAL AM CDT procedure are i n the results section. COMPREHENSIVE Routine 04/08/2020 3:42 Results fo r this METABOLIC PANEL AM CDT procedure ar e in the results section. CBC W/PLT COUNT & AUTO Routine 04/08/2020 3:42 R esults for this DIFFERENTIAL AM CDT procedure are i n the results section. POCT-GLUCOSE METER Routine 04/07/2020 9:08 Resul ts for this PM CDT procedure are i n the results section. POCT-GLUCOSE METER Routine 04/07/2020 5:20 Resul ts for this PM CDT procedure are i n the results section. POCT-GLUCOSE METER Routine 04/07/2020 12:02 Resul ts for this PM CDT procedure are i n the results section. POCT-GLUCOSE METER Routine 04/07/2020 7:55 Resul ts for this AM CDT procedure are i n the results section. CBC W/PLT COUNT & AUTO Routine 04/07/2020 4:24 R esults for this DIFFERENTIAL AM CDT procedure are i n the results section. COMPREHENSIVE Routine 04/07/2020 4:24 Results fo r this METABOLIC PANEL AM CDT procedure ar e in the results section. CBC W/PLT COUNT & AUTO Routine 04/07/2020 4:24 R esults for this DIFFERENTIAL AM CDT procedure are i n the results section. POCT-GLUCOSE METER Routine 04/06/2020 9:01 Resul ts for this PM CDT procedure are i n the results section. CT CHEST PE TEST STAT 04/06/2020 4:30 Results for this DESIGN PM CDT procedure are i n the results section. APTT Routine 04/06/2020 1:47 Results for this PM CDT procedure are i n the results section. POCT-GLUCOSE METER Routine 04/06/2020 11:56 Resul ts for this AM CDT procedure are i n the results section. RESPIRATORY PANEL [facility] Routine 04/06/2020 9:15 R esults for this AM CDT procedure are i n the results section. POCT-GLUCOSE METER Routine 04/06/2020 7:41 Resul ts for this AM CDT procedure are i n the results section. CBC W/PLT COUNT & AUTO Routine 04/06/2020 3:34 R esults for this DIFFERENTIAL AM CDT procedure are i n the results section. APTT Routine 04/06/2020 3:34 Results for this AM CDT procedure are i n the results section. CBC W/PLT COUNT & AUTO Routine 04/06/2020 3:34 R esults for this DIFFERENTIAL AM CDT procedure are i n the results section. COMPREHENSIVE Routine 04/06/2020 3:34 Results fo r this METABOLIC PANEL AM CDT procedure ar e in the results section. POCT-GLUCOSE METER Routine 04/05/2020 11:20 Resul ts for this PM CDT procedure are i n the results section. URINALYSIS W/ REFLEX Routine 04/05/2020 7:02 Res ults for this URINE CULTURE PM CDT procedure are in the results section. URINE CULTURE Routine 04/05/2020 7:02 Results fo r this PM CDT procedure are i n the results section. CBC W/PLT COUNT & AUTO STAT 04/05/2020 6:48 R esults for this DIFFERENTIAL PM CDT procedure are i n the results section. CBC W/PLT COUNT & AUTO STAT 04/05/2020 6:48 R esults for this DIFFERENTIAL PM CDT procedure are i n the results section. PHOSPHORUS STAT 04/05/2020 6:48 Results for this PM CDT procedure are i n the results section. MAGNESIUM STAT 04/05/2020 6:48 Results for this PM CDT procedure are i n the results section. BASIC METABOLIC PANEL STAT 04/05/2020 6:48 Re sults for this (7) PM CDT procedure are i n the results section. D-DIMER STAT 04/05/2020 6:48 Results for this PM CDT procedure are i n the results section. SARS-COV2/RT-PCR ([facility] Routine 04/05/2020 5:02 R esults for this & REF LABS) PM CDT procedure are i n the results section. POCT-GLUCOSE METER Routine 04/05/2020 4:51 Resul ts for this PM CDT procedure are i n the results section. XR CHEST 1 VIEW STAT 04/05/2020 4:46 Results for this PORTABLE/BEDSIDE PM CDT procedure a re in the results section. LACTIC ACID, VENOUS STAT 04/05/2020 4:24 Resu lts for this PM CDT procedure are i n the results section. ECG 12-LEAD STAT 04/05/2020 4:08 Results for this PM CDT procedure are i n the results section. ECG 12-LEAD STAT 04/05/2020 1:27 Results for this PM CDT procedure are i n the results section. POCT-GLUCOSE METER Routine 04/05/2020 11:22 Resul ts for this AM CDT procedure are i n the results section. POCT-GLUCOSE METER Routine 04/05/2020 8:11 Resul ts for this AM CDT procedure are i n the results section. POCT-GLUCOSE METER Routine 04/04/2020 8:58 Resul ts for this PM CDT procedure are i n the results section. POCT-GLUCOSE METER Routine 04/04/2020 5:52 Resul ts for this PM CDT procedure are i n the results section. HEPATIC FUNCTION PANEL JOSY 04/04/2020 3:21 R esults for this PM CDT procedure are i n the results section. CBC W/PLT COUNT & AUTO Routine 04/04/2020 3:20 R esults for this DIFFERENTIAL PM CDT procedure are i n the results section. CBC W/PLT COUNT & AUTO Routine 04/04/2020 3:20 R esults for this DIFFERENTIAL PM CDT procedure are i n the results section. REPORT OF PROCEDURE - 04/04/2020 1:41 ENDOSCOPY SCAN PM CDT POCT-GLUCOSE METER Routine 04/04/2020 11:41 Resul ts for this AM CDT procedure are i n the results section. POCT-GLUCOSE METER Routine 04/04/2020 8:55 Resul ts for this AM CDT procedure are i n the results section. CBC W/PLT COUNT & AUTO Routine 04/04/2020 5:30 R esults for this DIFFERENTIAL AM CDT procedure are i n the results section. PHOSPHORUS Routine 04/04/2020 5:30 Results for this AM CDT procedure are i n the results section. MAGNESIUM Routine 04/04/2020 5:30 Results for this AM CDT procedure are i n the results section. CBC W/PLT COUNT & AUTO Routine 04/04/2020 5:30 R esults for this DIFFERENTIAL AM CDT procedure are i n the results section. BASIC METABOLIC PANEL Routine 04/04/2020 5:30 Re sults for this (7) AM CDT procedure are i n the results section. POCT-GLUCOSE METER Routine 04/03/2020 9:53 Resul ts for this PM CDT procedure are i n the results section. POCT-GLUCOSE METER Routine 04/03/2020 5:49 Resul ts for this PM CDT procedure are i n the results section. POCT-GLUCOSE METER Routine 04/03/2020 11:26 Resul ts for this AM CDT procedure are i n the results section. POCT-GLUCOSE METER Routine 04/03/2020 7:24 Resul ts for this AM CDT procedure are i n the results section. US ABDOMEN LIMITED JOSY 04/03/2020 5:45 Resul ts for this AM CDT procedure are i n the results section. CBC W/PLT COUNT & AUTO Routine 04/03/2020 3:34 R esults for this DIFFERENTIAL AM CDT procedure are i n the results section. HEMOGLOBIN A1C Routine 04/03/2020 3:34 Results f or this AM CDT procedure are i n the results section. PHOSPHORUS Routine 04/03/2020 3:34 Results for this AM CDT procedure are i n the results section. MAGNESIUM Routine 04/03/2020 3:34 Results for this AM CDT procedure are i n the results section. CBC W/PLT COUNT & AUTO Routine 04/03/2020 3:34 R esults for this DIFFERENTIAL AM CDT procedure are i n the results section. BASIC METABOLIC PANEL Routine 04/03/2020 3:34 Re sults for this (7) AM CDT procedure are i n the results section. HEPATIC FUNCTION PANEL Routine 04/03/2020 3:34 R esults for this AM CDT procedure are i n the results section. POCT-GLUCOSE METER Routine 04/02/2020 9:09 Resul ts for this PM CDT procedure are i n the results section. MR BRAIN WITHOUT IV Routine 04/02/2020 8:22 Resu lts for this CONTRAST PM CDT procedure are i n the results section. POCT-GLUCOSE METER Routine 04/02/2020 5:17 Resul ts for this PM CDT procedure are i n the results section. RAPID DRUG SCREEN, Routine 04/02/2020 1:14 Resul ts for this URINE PM CDT procedure are i n the results section. DRUG SCREEN, URINE, Routine 04/02/2020 1:12 COMPREHENSIVE PM CDT AMMONIA Routine 04/02/2020 12:22 Results for this PM CDT procedure are i n the results section. BLOOD CULTURE STAT 04/02/2020 12:08 Results fo r this PM CDT procedure are i n the results section. POCT-GLUCOSE METER Routine 04/02/2020 11:00 Resul ts for this AM CDT procedure are i n the results section. POCT-GLUCOSE METER Routine 04/02/2020 8:33 Resul ts for this AM CDT procedure are i n the results section. EEG 12-26 HR STAT 04/02/2020 6:32 Results for this CONTINUOUS MONITORING AM CDT proced ure are in WITH VIDEO the results section. CBC W/PLT COUNT & AUTO Routine 04/02/2020 4:43 R esults for this DIFFERENTIAL AM CDT procedure are i n the results section. CBC W/PLT COUNT & AUTO Routine 04/02/2020 4:43 R esults for this DIFFERENTIAL AM CDT procedure are i n the results section. BASIC METABOLIC PANEL Routine 04/02/2020 4:43 Re sults for this (7) AM CDT procedure are i n the results section. POCT-GLUCOSE METER Routine 04/02/2020 1:53 Resul ts for this AM CDT procedure are i n the results section. POCT-GLUCOSE METER Routine 04/01/2020 8:44 Resul ts for this PM CDT procedure are i n the results section. HEPATIC FUNCTION PANEL Routine 04/01/2020 6:46 R esults for this PM CDT procedure are i n the results section. POCT-GLUCOSE METER Routine 04/01/2020 5:57 Resul ts for this PM CDT procedure are i n the results section. T4, FREE Routine 04/01/2020 2:13 Results for this PM CDT procedure are i n the results section. LITHIUM LEVEL AP Routine 04/01/2020 2:13 Results fo r this PM CDT procedure are i n the results section. VITAMIN B12 AND FOLATE Routine 04/01/2020 2:13 R esults for this PM CDT procedure are i n the results section. TSH/FREE T4 IF JOSY 04/01/2020 2:13 Results f or this INDICATED PM CDT procedure are i n the results section. BLOOD CULTURE STAT 04/01/2020 2:11 Results fo r this PM CDT procedure are i n the results section. POCT-GLUCOSE METER Routine 04/01/2020 12:22 Resul ts for this PM CDT procedure are i n the results section. ECG 12-LEAD Routine 04/01/2020 8:31 Results for this AM CDT procedure are i n the results section. SARS-COV2/RT-PCR ([facility] STAT 04/01/2020 5:24 R esults for this & REF LABS) AM CDT procedure are i n the results section. CBC W/PLT COUNT & AUTO STAT 04/01/2020 5:08 R esults for this DIFFERENTIAL AM CDT procedure are i n the results section. TROPONIN I STAT Add-on 04/01/2020 5:08 Results for this AM CDT procedure are i n the results section. PT/APTT STAT 04/01/2020 5:08 Results for this AM CDT procedure are i n the results section. PHOSPHORUS STAT 04/01/2020 5:08 Results for this AM CDT procedure are i n the results section. CREATINE KINASE (CK) STAT 04/01/2020 5:08 Res ults for this AM CDT procedure are i n the results section. MAGNESIUM STAT 04/01/2020 5:08 Results for this AM CDT procedure are i n the results section. BASIC METABOLIC PANEL STAT 04/01/2020 5:08 Re sults for this (7) AM CDT procedure are i n the results section. CBC W/PLT COUNT & AUTO STAT 04/01/2020 5:08 R esults for this DIFFERENTIAL AM CDT procedure are i n the results section. URINALYSIS W/ REFLEX STAT 04/01/2020 5:04 Res ults for this URINE CULTURE AM CDT procedure are in the results section. XR CHEST 1 VIEW STAT 04/01/2020 4:58 Results for this PORTABLE/BEDSIDE AM CDT procedure a re in the results section. ED ECG INTERPRETATION Routine 04/01/2020 4:51 Re sults for this AM CDT procedure are i n the results section. CRITICAL CARE Routine 04/01/2020 4:51 Results fo r this AM CDT procedure are i n the results section. after 07/03/2019 Results RHYTHM STRIP - SCAN (04/17/2020 3:11 PM CDT) Narrative Performed At This result has an attachment that is no t available. POC-Glucose meter (04/15/2020 10:05 PM CDT)Only the most recent of52 results within the time period is included. POC-Glucose Meter 124 (H)Comment: : TESTED 70 - 110 mg/dL [facility] AT [address], [address]: Recovery Agent/Remote Control Assembler ID = [id number] for RAY ERVIN Specimen Blood Performing Organization Address [facility] Phone Number [address] [phone] CENTER [place] level (04/12/2020 4:26 AM CDT)Only the most recent of3 resultswithin the time period is included. [place] Level 0.6 (L) 0.8 - 1.2 mmol/L [facility] Specimen Blood Narrative Performed At This result has an attachment that is no t available. Performing Organization Address [facility] Phone Number [address] [address] CENTER CBC with platelet count + automated diff (04/10/2020 3:58 AM CDT)Only the most recent of10 resultswithin the time period is included. WBC 4.6 3.5 - 10.5 K/L [facility] RBC 4.19 3.93 - 5.22 M/L [facility] Hemoglobin 12.0 11.2 - 15.7 GM/DL [facility] Hematocrit 37.6 34.1 - 44.9 % [facility] MCV 89.7 79.4 - 94.8 fL [facility] MCH 28.6 25.6 - 32.2 pg [facility] MCHC 31.9 (L) 32.2 - 35.5 GM/DL [facility] RDW 13.8 11.7 - 14.4 % [facility] Platelets 92 (L) 150 - 450 K/CU MM [facility] MPV 12.3 9.4 - 12.3 fL [facility] nRBC 0 0 - 0 /100 WBC [facility] % Neutros 48 % [facility] % Lymphs 37 % [facility] % Monos 11 % [facility] % Eos 3 % [facility] CENTER % Baso 0 % [facility] # Neutros 2.20 1.56 - 6.13 K/L [facility] # Lymphs 1.69 1.18 - 3.74 K/L [facility] # Monos 0.50 (H) 0.24 - 0.36 K/L [facility] # Eos 0.13 0.04 - 0.36 K/L [facility] # Baso 0.02 0.01 - 0.08 K/L [facility] Immature Granulocytes-Relative 0 0 - 1 % C [facility] Specimen Blood Performing Organization Address City/State/Zipcode Phone Number [facility] [address] [place] [address] CENTER Basic Metabolic Panel (04/10/2020 3:58 AM CDT)Only the most recent of6 results within the time period is included. Sodium 143 136 - 145 meq/L [facility] Potassium 4.0 3.5 - 5.1 meq/L [facility] Chloride 111 (H) 98 - 107 meq/L [facility] CO2 25 22 - 29 meq/L [facility] BUN 11 7 - 21 mg/dL [facility] Creatinine 0.76 0.57 - 1.25 mg/dL [facility] Glucose 106 (H) 70 - 105 mg/dL [facility] Calcium 9.6 8.4 - 10.2 mg/dL [facility] EGFR 79Comment: ESTIMATED GFR IS mL/min/1.[address] [facility] NOT ACCURATE CREATININE [facility] CLEARANCE IN PREDICTING GLOMERULAR FILTRATION RATE. ESTIMATED GFR IS NOT APPLICABLE FOR DIALYSIS PATIENTS. Specimen Blood Narrative Performed At Recovery Agent DEEPA Velazquez ZAHRA Sg [facility] Performing Organization Address City/State/Zipcode Phone Number [facility] [address] [place] [address] [place] Comprehensive metabolic panel (04/08/2020 3:42 AM CDT)Only the most recent of3 resultswithin the time period is included. Protein, Total 7.5 6.0 - 8.3 gm/dL [facility] Albumin 3.7 3.5 - 5.0 g/dL [facility] Alkaline Phosphatase 94 40 - 150 U/L [facility] Total Bilirubin 0.9 0.2 - 1.2 mg/dL [facility] Sodium 141 136 - 145 meq/L [facility] Potassium 4.0 3.5 - 5.1 meq/L [facility] Chloride 110 (H) 98 - 107 meq/L [facility] CO2 23 22 - 29 meq/L [facility] BUN 10 7 - 21 mg/dL [facility] Creatinine 0.72 0.57 - 1.25 mg/dL [facility] Glucose 123 (H) 70 - 105 mg/dL [facility] Calcium 9.6 8.4 - 10.2 mg/dL [facility] AST 28 5 - 34 U/L [facility] ALT 39 6 - 55 U/L [facility] EGFR 84Comment: ESTIMATED GFR mL/min/1.73 sq m [facility] IS NOT ACCURATE [facility] CREATININE CLEARANCE IN PREDICTING GLOMERULAR FILTRATION RATE. ESTIMATED GFR IS NOT APPLICABLE FOR DIALYSIS PATIENTS. Specimen Blood Narrative Performed At Recovery Agent ID - PIAYA L [facility] Performing Organization Address City/State/Zipcode Phone Number [facility] [address] [place] [address] chest for pulmonary embolus (04/06/2020 4:30 PM CDT) Specimen Narrative Performed At FINAL REPORT [employer] [facility] Exam: CT pulmonary angiogram Clinical History: Pulmonary embolism Technique: Helical images of the chest w ere obtained after IV contrast administration using the pulmon patrice embolism protocol. Findings: There is no evidence of acute pulmonary embolism in the main pulmonary artery or its visualized branches. There is no evidence of pulmonary edema, consolidation, pleural effusion, or pneumothorax. The tracheobr onchial tree is clear. There is no evidence of mediastinal or hilar a denopathy. The cardiac size is within normal limits. The great vesse ls are normal in caliber and configuration. A 1.6 cm hypodense lesion is noted in the left lobe of thyroid gland. The visualized upper abdominal solid org ans are unremarkable. Deformity of the superior endplates is n oted in 2 of the thoracic vertebral bodies in the mid and lower le shanthi. These may represent compression fractures, age indeterminate . Impression: 1. No CT evidence of acute pulmonary emb olism. 2. 1.6 cm thyroid nodule.If indicate d, ultrasound can be performed for further assessment. 3. Endplate deformity in 2 of the thorac ic vertebral bodies which may represent compression fractures, age ind eterminate. Signed: Milton Cook MD Report Verified Date/Time:04/06/2020 16:45:26 Reading Location: [address] Reading Room Procedure Note Interface, External Ris In - 04/06/2020 4:47 PM CDT FINAL REPORT Exam: CT pulmonary angiogram Clinical History: Pulmonary embolism Technique: Helical images of the chest w ere obtained after IV contrast administration using the pulmon patrice embolism protocol. Findings: There is no evidence of acute pulmonary embolism in the main pulmonary artery or its visualized branches. There is no evidence of pulmonary edema, consolidation, pleural effusion, or pneumothorax. The tracheobr onchial tree is clear. There is no evidence of mediastinal or hilar a denopathy. The cardiac size is within normal limits. The great vesse ls are normal in caliber and configuration. A 1.6 cm hypodense lesion is noted in the left lobe of thyroid gland. The visualized upper abdominal solid org ans are unremarkable. Deformity of the superior endplates is n oted in 2 of the thoracic vertebral bodies in the mid and lower le shanthi. These may represent compression fractures, age indeterminate . Impression: 1. No CT evidence of acute pulmonary emb olism. 2. 1.6 cm thyroid nodule. If indicated, ultrasound can be performed for further assessment. 3. Endplate deformity in 2 of the thorac ic vertebral bodies which may represent compression fractures, age ind eterminate. Signed: Milton Cook MD Report Verified Date/Time: 04/06/2020 1 6:45:26 Reading Location: [address] Reading Room Performing Organization Address City/State/Zipcode Phone Number GE RIS aPTT (04/06/2020 1:47 PM CDT)Only the most recent of2 resultswithin the time period is included. PTT 31.0 22.5 - 36.0 seconds [facility] Specimen Blood Narrative Performed At 6 hours after starting heparin infusion and [facility] [place] as indicated per sliding scale Performing Organization Address City/State/Zipcode Phone Number [facility] [address] [place] [address] CENTER Respiratory Panel [facility] (04/06/2020 9:15 AM CDT) Human Metapneumovirus Not detected Not detected, [facility] [employer] [facility] Rhinovirus Not detected Not detected, [facility] [employer] [facility] Influenza A Not detected Not detected, [facility] [employer] [facility] INFLUENZA A (NO SUBTYPE) [facility] Influenza A subtype H1 [facility] Influenza A Subtype H3 [facility] Influenza A Subtype H1-2009 [facility] Influenza B Not detected Not detected, [facility] [employer] [facility] Respiratory Syncytial Virus Not detected Not detected, [facility] [employer] [facility] Parainfluenza Virus 1 Not detected Not detected, [facility] [employer] [facility] Parainfluenza Virus 2 Not detected Not detected, [facility] [employer] [facility] Parainfluenza virus 3 Not detected Not detected, [facility] [employer] [facility] Parainfluenza Virus 4 Not detected Not detected, [facility] [employer] [facility] Adenovirus Not detected Not detected, [facility] [employer] [facility] Coronavirus 229E Not detected Not detected, [facility] [employer] [facility] Coronavirus HKU1 Not detected Not detected, [facility] [employer] [facility] Coronavirus NL63 Not detected Not detected, [facility] [employer] [facility] Coronavirus OC43 Not detected Not detected, [facility] [employer] [facility] Bordetella Pertussis Not detected Not detected, [facility] [employer] [facility] Chlamydophila Pneumoniae Not detected Not detected, [facility] [employer] [facility] Mycoplasma Pneumoniae Not detected Not detected, [facility] [employer] [facility] Specimen Nasopharyngeal Narrative Performed At Other viruses and bacteria not targeted by [facility] this PCR panel cannot be excluded; therefore clinical correlation and follow up of serology, culture results, and other molecular studies is required. The results are not intended to be used as the sole means for clinical diagnosis or patient management decisions. This sample was tested at the [facility] Molecular Diagnostics Laboratory using the [employer] FilmArray Respiratory Panel. It is FDA cleared and has been verified and approved by the [facility] Molecular Diagnostics Laboratory for clinical use on nasopharyngeal swab specimens. The performance of the FilmArray RP has not been established in individuals who received influenza vaccine.Recent administration of a nasal influenza vaccine may cause false positive results for Influenza A and/or Influenza B. Performing Organization Address City/State/Zipcode Phone Number [facility] [address] [place] [address] CENTER Urinalysis w/Microscopic + Reflex to Culture (04/05/2020 7:02 PM CDT)Only the most recent of2 resultswithin the time period is included. Color, UA Yellow [facility] Clarity, UA Clear [facility] Specific [place], UA 1.015 1.001 - 1.035 [facility] pH, UA 7.0 5.0 - 8.0 [facility] Protein, UA Negative Negative [facility] Glucose, UA Negative Negative [facility] Ketones, UA Negative Negative [facility] Bilirubin, UA Negative Negative [facility] Blood, UA Negative Negative [facility] Nitrite, UA Negative Negative [facility] Leukocytes, UA Moderate (A) Negative [facility] Urobilinogen, UA 6.0 (H) 0.2 - 1.0 mg/dL [facility] RBC, UA <1 /HPF [facility] WBC, UA 14 /HPF [facility] Bacteria, UA Occasional [facility] Squam Epithel, UA 5 /HPF [facility] Specimen Source [facility] Specimen Urine Narrative Performed At Recovery Agent ID - [auto] [facility] Recovery Agent ID - ann Performing Organization Address City/State/Zipcode Phone Number [facility] [address] [place] [address] CENTER Urine culture (04/05/2020 7:02 PM CDT) Result >100,000 col/mL Escherichia coli [facility] (A) [facility] Specimen Urine Narrative Performed At <10,000 col/mL gram negative layla of a second [facility] type 40-49,000 col/mL skin krystin Organism Antibiotic Method Susceptibility Escherichia coli Amikacin <=2: Susceptibl e Escherichia coli Ampicillin + Sulbactam >=32: Re sistant Escherichia coli Aztreonam <=1: Susceptibl e Escherichia coli Cefepime <=1: Susceptibl e Escherichia coli Cefoxitin <=4: Susceptibl e Escherichia coli Ceftazidime <=1: Susceptibl e Escherichia coli Ceftriaxone <=1: Susceptibl e Escherichia coli Ertapenem <=0.5: Suscepti ble Escherichia coli Gentamicin <=1: Susceptibl e Escherichia coli Levofloxacin >=8: Resistant Escherichia coli Meropenem <=0.25: Suscept ible Escherichia coli Nitrofurantoin <=16: Susceptib le Escherichia coli Piperacillin + Tazobactam <=4: Susceptible Escherichia coli Tetracycline >=16: Resistant Escherichia coli Tobramycin <=1: Susceptibl e Escherichia coli Trimethoprim + Sulfamethoxazole >=320: Resistant Performing Organization Address [facility] Phone Number [address] [address] CENTER D-dimer (04/05/2020 6:48 PM CDT) D-Dimer, Quant 0.89 (H) <0.50 MG/L FEU [facility] Specimen Blood Narrative Performed At Intended Use: The D-Dimer Assay can be used [facility] [place] to aid in the diagnosis of Deep Vein Thrombosis (DVT) and Pulmonary Embolism Disease (PED). In patients with low pre-test probability, various studies concerning STA Liatest D-dimer test have reported that with a cutoff value of 0.50 MG/L FEU, the Negative Predictive Value (NPV) regarding the exclusion of thrombosis is within 95-100% range. Performing Organization Address [facility] Phone Number [address] [address] CENTER Phosphorus (04/05/2020 6:48 PM CDT)Only the most recent of4 resultswithin the time period is included. Phosphorus 2.9 2.3 - 4.7 mg/dL [facility] Specimen Blood Narrative Performed At Recovery Agent ID - DB [facility] Performing Organization Address [facility] Phone Number [address] [address] CENTER Magnesium (04/05/2020 6:48 PM CDT)Only the most recent of4 resultswithin the time period is included. Magnesium 1.6 1.6 - 2.6 mg/dL [facility] Specimen Blood Narrative Performed At Recovery Agent ID - DB [facility] Performing Organization Address [facility]/Zipcode Phone Number [facility] [address] [place] [address] CENTER SARS-CoV2/RT-PCR (Symptomatic ONLY) (04/05/2020 5:02 PM CDT)Only the most recent of2 resultswithin the time period is included. SARS-COV2/RT-PCR Not Detected Not Detected, Negative [facility] SARS-COV-2 PERFORMING LAB [facility] Specimen Other Narrative Performed At Negative results do not preclude SARS-CoV-[address] [facility] [place] infection and should not be used as the sole basis for patient management decisions. Negative results must be combined with clinical observations, patient history, and epidemiological information. A false negative result may occur if a specimen is improperly collected, transported or handled. The limit of detection for this assay is 250 copies/mL. This SARS CoV-2 test is a rapid, real-time RT-PCR test intended for the qualitative detection of nucleic acid from SARS-CoV-2 in a nasopharyngeal swab specimen collected from individuals suspected of COVID-19 by their healthcare provider. This test has not been Food and Drug Administration (FDA) cleared or approved and has been authorized by FDA under an Emergency Use Authorization (EUA). This EUA will be effective until the declaration that circumstances exist justifying the authorization of the emergency use of in vitro diagnostic tests for detection and/or diagnosis of COVID-19 is terminated under Section 564(b)(2) of the Act or the EUA is revoked under Section 564(g) of the Act. Fact Sheet for Healthcare Providers: https://www.demandmart/Documents/Xpert%20Xpre ss%20SARS%20CoV-2/Fact%20Sheets/738-5999%20SAR S-COV-2%20HEALTHCARE%20PROVIDERS%20FACT%20SHEE T.pdf Fact Sheet for Healthcare Patients: https://www.demandmart/Documents/Xpert%20Xpre ss%20SARS%20CoV-2/Fact%20Sheets/876-3801%20SAR S-COV-2%20PATIENT%20FACT%20SHEET.pdf Performing Laboratory: [facility] [address] [place] [id number] Performing Organization Address City/State/Zipcode Phone Number [facility] [address] [place] [id number] CENTER XR chest 1 view portable / bedside (04/05/2020 4:46 PM CDT)Only the most recent of2 resultswithin the time period is included. Specimen Narrative Performed At FINAL REPORT GE RIS TECHNIQUE: Frontal chest radiograph date d 04/05/2020. CLINICAL HISTORY: SOB, Fever COMPARISON STUDY: Chest radiograph dated 04/01/2020 IMPRESSION: Endotracheal and enteric tubes have been removed. Lungs are clear. No pleural effusion or pneumothorax. Cardio mediastinal silhouette is normal in size. No pulmonary edema. No f racture. Signed: Douglas Hale MD Report Verified Date/Time:04/05/2020 17:16:45 Reading Location: [address] [facility] Reading Room Procedure Note Interface, External Ris In - 04/05/2020 5:18 PM CDT FINAL REPORT TECHNIQUE: Frontal chest radiograph date d 04/05/2020. CLINICAL HISTORY: SOB, Fever COMPARISON STUDY: Chest radiograph dated 04/01/2020 IMPRESSION: Endotracheal and enteric tubes have been removed. Lungs are clear. No pleural effusion or pneumothorax. Cardio mediastinal silhouette is normal in size. No pulmonary edema. No f racture. Signed: Douglas Hale MD Report Verified Date/Time: 04/05/2020 1 7:16:45 Reading Location: [address] [employer] Reading Room Performing Organization Address City/State/Zipcode Phone Number GE RIS Lactic acid, venous (04/05/2020 4:24 PM CDT) Lactate, Venous 1.24 0.50 - 2.20 mmol/L [facility] Specimen Blood Narrative Performed At Recovery Agent ID - DB [facility] Performing Organization Address City/State/Zipcode Phone Number [facility] [address] [place] [address] CENTER ECG 12 lead (04/05/2020 4:08 PM CDT)Only the most recent of3 resultswithin the time period is included. Specimen Narrative Performed At Ventricular Rate 119 BPM GE MUSE Atrial Rate 119 BPM P-R Interval 128 ms QRS Duration 84 ms Q-T Interval 308 ms QTC Calculation(Bazett) 433 ms P [place] 68 degrees R [place] 64 degrees T [place] 55 degrees Sinus tachycardia Otherwise normal ECG Confirmed by MD MCCABE MAJID ([id number]) on 020 11:22:13 AM Procedure Note Interface, External Ris In - 04/06/2020 11:22 AM CDT Ventricular Rate 119 BPM Atrial Rate 119 BPM P-R Interval 128 ms QRS Duration 84 ms Q-T Interval 308 ms QTC Calculation(Bazett) 433 ms P [place] 68 degrees R [place] 64 degrees T [place] 55 degrees Sinus tachycardia Otherwise normal ECG Confirmed by MD MCCABE MAJID ( [id number]) on 04/06/2020 11:22:13 AM Performing Organization Address [facility] Phone Number GE MUSE Hepatic function panel (04/04/2020 3:21 PM CDT)Only the most recent of3 results within the time period is included. Protein, Total 7.4 6.0 - 8.3 gm/dL [facility] Albumin 3.8 3.5 - 5.0 g/dL [facility] Total Bilirubin 1.4 (H) 0.2 - 1.2 mg/dL [facility] Bilirubin, Direct 0.7 (H) 0.1 - 0.5 mg/dL [facility] Alkaline Phosphatase 102 40 - 150 U/L [facility] AST 67 (H) 5 - 34 U/L [facility] ALT 40 6 - 55 U/L [facility] Specimen Blood Narrative Performed At Recovery Agent ID - NTP [facility] Performing Organization Address City/State/Zipcode Phone Number [facility] [address] [place] [address] CENTER EKG-SCANNED (04/04/2020 1:41 PM CDT) Narrative Performed At This result has an attachment that is no t available. US abdomen limited (04/03/2020 5:45 AM CDT) Specimen Narrative Performed At FINAL REPORT [employer] History: Evaluate for cirrhosis Abdominal ultrasound dated 04/03/2020 Comparison: None Comment:Real-time transabdominal ult rasound of the right upper quadrant abdomen was performed. Liver: 16.6 cm , normal. Coarsened paren chymal echogenicity with a subtle nodular contour suggesting underl chinedu cirrhosis. A 2.1 x 2.0 x 1.8 cm nodular focus in the right liver is noted. Gallbladder: No gallstones. No gallbladd er wall thickening. No perocholecystic fluid.. No sonographic M urphy's sign. Biliary tree: No intrahepatic ductal dil atation. CBD: 4 mm. MPV: 8 mm Pancreas: Unremarkable. Right kidney: 10.3 x 4.6 x 5.0 cm. Enriqueta l echogenicity. No ascites is present in the abdomen. The visualized abdominal aorta is normal in caliber. The IVC and Hepatic veins are patent. Impression: Coarsened hepatic parenchymal echogenici ty with a subtle nodular contour suggesting underlying cirrhosis. Subtle, 2.1 x 2.0 x 1.8 cm nodular focus in the inferior right liver could reflect a hepatic mass. Better shefali racterization with liver protocol MRI is recommended. Signed: rGegorio Walker MD Report Verified Date/Time:04/03/2020 06:20:42 Procedure Note Interface, External Ris In - 04/03/2020 6:23 AM CDT FINAL REPORT History: Evaluate for cirrhosis Abdominal ultrasound dated 04/03/2020 Comparison: None Comment: Real-time transabdominal ultra sound of the right upper quadrant abdomen was performed. Liver: 16.6 cm , normal. Coarsened paren chymal echogenicity with a subtle nodular contour suggesting underl chinedu cirrhosis. A 2.1 x 2.0 x 1.8 cm nodular focus in the right liver is noted. Gallbladder: No gallstones. No gallbladd er wall thickening. No perocholecystic fluid.. No sonographic M urphy's sign. Biliary tree: No intrahepatic ductal dil atation. CBD: 4 mm. MPV: 8 mm Pancreas: Unremarkable. Right kidney: 10.3 x 4.6 x 5.0 cm. Enriqueta l echogenicity. No ascites is present in the abdomen. The visualized abdominal aorta is normal in caliber. The IVC and Hepatic veins are patent. Impression: Coarsened hepatic parenchymal echogenici ty with a subtle nodular contour suggesting underlying cirrhosis. Subtle, 2.1 x 2.0 x 1.8 cm nodular focus in the inferior right liver could reflect a hepatic mass. Better shefali racterization with liver protocol MRI is recommended. Signed: Gregorio Walker MD Report Verified Date/Time: 04/03/2020 0 6:20:42 Performing Organization Address City/State/Zipcode Phone Number [employer] Hemoglobin A1c (04/03/2020 3:34 AM CDT) Hemoglobin A1C 6.0 4.3 - 6.1 % [facility] CENTER Specimen Blood Performing Organization Address City/State/Zipcode Phone Number [facility] [address] [place] [address] CENTER MR brain without IV contrast (04/02/2020 8:22 PM CDT) Specimen Narrative Performed At FINAL REPORT [employer] MR, BRAIN, WITHOUT CONTRAST INDICATION: Neuro deficit, acute, persis tent or progressing TECHNIQUE: Multiplanar, multisequence MR imaging of the brain without intravenous contrast. COMPARISON: CT head 04/22/2016 FINDINGS: Intracranial: A few scattered foci of T2 prolongation within the periventricular and subcortical white ma tter are a nonspecific finding commonly attributed to chronic s mall vessel ischemic disease. No acute intracranial hemorrhage. No res tricted diffusion to suggest acute infarct. No mass effect. No hydroc ephalus. Visualized intracranial flow voids are of normal co urse and caliber. Sinuses: No evidence of sinusitis. Masto ids are clear. Orbits: Globes are intact. Calvarium \\T\\ scalp: Unremarkable. IMPRESSION: No acute intracranial abnormality. Signed: Colby More MD Report Verified Date/Time:04/02/2020 20:37:03 Procedure Note Interface, External Ris In - 04/02/2020 8:39 PM CDT FINAL REPORT MR, BRAIN, WITHOUT CONTRAST INDICATION: Neuro deficit, acute, persis tent or progressing TECHNIQUE: Multiplanar, multisequence MR imaging of the brain without intravenous contrast. COMPARISON: CT head 04/22/2016 FINDINGS: Intracranial: A few scattered foci of T2 prolongation within the periventricular and subcortical white ma tter are a nonspecific finding commonly attributed to chronic s mall vessel ischemic disease. No acute intracranial hemorrhage. No res tricted diffusion to suggest acute infarct. No mass effect. No hydroc ephalus. Visualized intracranial flow voids are of normal co urse and caliber. Sinuses: No evidence of sinusitis. Masto ids are clear. Orbits: Globes are intact. Calvarium \\T\\ scalp: Unremarkable. IMPRESSION: No acute intracranial abnormality. Signed: Colby More MD Report Verified Date/Time: 04/02/2020 2 0:37:03 Performing Organization Address City/State/Zipcode Phone Number RIS Rapid drug screen, urine (04/02/2020 1:14 PM CDT) Barbiturate Screen Negative Negative [facility] Benzodiazepine Screen Positive (A) Negative [facility] Cocaine (Metab.) Screen Negative Negative [facility] Meth[facility]one Screen Negative [facility] Opiate Screen [facility] Negative [facility] Cannabinoid Screen Negative Negative [facility] Amph/Methamph Screen Negative Negative [facility] Phencyclidine Screen Negative Negative [facility] pH, UA 6.5 5.0 - 8.0 [facility] Specimen Urine Narrative Performed At [facility] Cocaine 300 ng/mL Dxfkofvsoay86 ng /mL Xqqqeckxayzckq235 ng/mL Barbiturate 200 ng/m L Esjdctjjsnbkn28 ng/m L Rzcesq425 ng/mL Methadone 300 ng /mL Amphetamine/ 1000 ng/mL Methamphetamine This assay provides an unconfirmed qualitative test result for the clinical management of patients in emergency situations. Chain of custody not maintained. Some cjfc-mlq-amynmkm medications, as well as adulterants, may cause inaccurate results. Clinical correlation should be applied. A more comprehensive drug screen or confirmation of a detected drug may be performed upon request. Recovery Agent ID - ADMIN Performing Organization Address [facility]/Zipcode Phone Number [address] [address] [place] Drug screen, urine, comprehensive (04/02/2020 1:12 PM CDT) Specimen Urine Narrative Performed At This result has an attachment that is no t available. Ammonia (04/02/2020 12:22 PM CDT) Ammonia 60 18 - 72 mol/L [facility] Specimen Blood Narrative Performed At Recovery Agent ID - ABILIO Mota [facility] Performing Organization Address [facility] Phone Number [address] [address] [place] Blood culture (04/02/2020 12:08 PM CDT)Only the most recent of2 resultswithin the time period is included. Result No growth in 5 days [facility] Specimen Blood Performing Organization Address [facility]/Zipcode Phone Number [address] [address] [place] EEG 12-26 HR Continuous Monitoring with Video (04/02/2020 6:32 AM CDT) Specimen Narrative Performed At Date of EE04/01/2020 to 04/02/2020 GE RIS DATE OF REPORT:04/02/2020 ACC: [id number] EEG Number: [id number] Start time: 04/01/2020 @ 14:41 PM Stop time: 04/02/2020 @ 11:30 AM ICD-10: R56.9 CPT Code: 72040 HISTORY: 54 y.o. Female with ADHD, bipol ar disorder, breast cancer, and hepatitis who was transferred due to concern for seizures requiring intubation. MEDICATIONS: No anti-seizure medications . TECHNICAL SUMMARY: This is a digital video-EEG recorded wit h 32 input channels reviewed with bipolar and referential montages us ing the modified [employer] system nomenclature. DESCRIPTION OF RECORD: During the maximally alert state an 8.5- 9.5 Hz posterior dominant rhythm was seen that was symmetric, reac tive to eye opening and well regulated.More anteriorly, low volta ge frontocentral beta predominated.Drowsiness was characte rized by decreased eye blinks, alpha attenuation and increased frontoce ntral theta, vertex sharp transients.Stage 2 sleep was reached characterized by symmetric sleep spindles and K-complexes. SIGNIFICANT VIDEO EVENTS: None SIGNIFICANT ELECTROCARDIOGRAM EVENTS: Ta chycardia HV: Hyperventilation was not performed. PHOTIC STIMULATION: Photic stimulation w as not performed. IMPRESSION: Normal Awake and Sleep EEG CLINICAL CORRELATION: An EEG without epi leptiform discharges does not exclude the possibility of epilepsy. If the clinical suspicion of epilepsy remains, consider additional EE G recordings. Avtar Parker MD Neurophysiology Fellow I have reviewed the electroencephalogram and this report and agree with its interpretation. Freedom Mckay MD Epilepsy Attending Procedure Note Interface, External Ris In - 04/02/2020 1:28 PM CDT Date of EE04/01/2020 to 04/02/2020 DATE OF REPORT: 04/02/2020 ACC: [id number] EEG Number: [id number] Start time: 04/01/2020 @ 14:41 PM Stop time: 04/02/2020 @ 11:30 AM ICD-10: R56.9 CPT Code: 34849 HISTORY: 54 y.o. Female with ADHD, bipol ar disorder, breast cancer, and hepatitis who was transferred due to concern for seizures requiring intubation. MEDICATIONS: No anti-seizure medications . TECHNICAL SUMMARY: This is a digital video-EEG recorded wit h 32 input channels reviewed with bipolar and referential montages us ing the modified [employer] system nomenclature. DESCRIPTION OF RECORD: During the maximally alert state an 8.5- 9.5 Hz posterior dominant rhythm was seen that was symmetric, reac tive to eye opening and well regulated. More anteriorly, low voltage frontocentral beta predominated. Drowsiness was characteri zed by decreased eye blinks, alpha attenuation and increased frontoce ntral theta, vertex sharp transients. Stage 2 sleep was reached c haracterized by symmetric sleep spindles and K-complexes. SIGNIFICANT VIDEO EVENTS: None SIGNIFICANT ELECTROCARDIOGRAM EVENTS: Ta chycardia HV: Hyperventilation was not performed. PHOTIC STIMULATION: Photic stimulation w as not performed. IMPRESSION: Normal Awake and Sleep EEG CLINICAL CORRELATION: An EEG without epi leptiform discharges does not exclude the possibility of epilepsy. If the clinical suspicion of epilepsy remains, consider additional EE G recordings. Avtar Parker MD Neurophysiology Fellow I have reviewed the electroencephalogram and this report and agree with its interpretation. Freedom Mcaky MD Epilepsy Attending Performing Organization Address [facility] Phone Number RIS Vitamin B12 and Folate (04/01/2020 2:13 PM CDT) Vitamin B12 929 (H) 213 - 816 pg/mL [facility] Folate 15.80 >=7.00 ng/mL [facility] Specimen Blood Narrative Performed At Recovery Agent ID - NTP [facility] Performing Organization Address [facility] Phone Number [address] [address] C[place] TSH/Free T4 If Indicated (04/01/2020 2:13 PM CDT) TSH 0.057 (L) 0.350 - 4.940 uIU/mL [facility] Specimen Blood Narrative Performed At Recovery Agent ID - [facility] Performing Organization Address [facility] Phone Number [address] [address] C[place] T4, free (04/01/2020 2:13 PM CDT) Free T4 1.19 0.70 - 1.48 ng/dL [facility] Specimen Blood Narrative Performed At Recovery Agent ID - NTP [facility] Performing Organization Address City/[facility] Phone Number [facility] [address] [place] [address] CENTER PT/aPTT (04/01/2020 5:08 AM CDT) Protime 15.4 (H) 11.9 - 14.2 seconds [facility] INR 1.3 <=5.9 [facility] PTT 25.8 22.5 - 36.0 seconds [facility] Specimen Blood Narrative Performed At Effective 04/05/2019: PT Reference Range [facility] Change New: 11.9-14.2Previous: 11.7-14.7 RECOMMENDED COUMADIN/WARFARIN INR THERAPY RANGES STANDARD DOSE: 2.0-3.0Includes: PROPHYLAXIS for venous thrombosis, systemic embolization; TREATMENT for venous thrombosis and/or pulmonary embolus. HIGH RISK: Target INR is 2.5-3.5 for patients wiht mechanical heart valves. Performing Organization Address City/[facility] Phone Number [address] [address] C[place] Troponin I (04/01/2020 5:08 AM CDT) Troponin I 0.01 0.00 - 0.03 ng/mL [facility] Specimen Blood Narrative Performed At Troponin I (TnI) levels must be interpreted [facility] [place] in the context of the presenting symptoms and the clinical findings. Elevated TnI levels indicate myocardial damage, but are not specific for ischemic heart disease. Elevated TnI levels are seen in patients with other cardiac conditions (including myocarditis and congestive heart failure), and slight TnI elevations occur in patients with other conditions, including sepsis, renal failure, acidosis, acute neurological disease, and persistent tachyarrhythmia. Recovery Agent ID - NTP Performing Organization Address City/State/Zipcode Phone Number [facility] [address] [place] [address] CENTER Creatine Kinase (CK) (04/01/2020 5:08 AM CDT) Total CK 79 29 - 200 U/L [facility] Specimen Blood Narrative Performed At Recovery Agent ID - ZAHRA Bettencourt [facility] Performing Organization Address City/State/Zipcode Phone Number [facility] [address] [place] [address] [place] ECG/EKG Interpretation (04/01/2020 4:51 AM CDT) Narrative Performed At Glendy Clayton MD 04/15/20203:33 PM ECG/EKG Interpretation Date/Time: 04/15/2020 3:33 PM Performed by: Glendy Clayton MD Authorized by: Arturo Downs MD The ECG was interpreted by ED physician. The ECG is in terpreted as sinus tachycardia. Rate is tachycardic. Heart rate is [address] segments normal. T waves normal. [place] is normal. Other findings include: prolonged QTc in terval. Clinical Impression: non-specific ECGECG reviewed and does no t meet STEMI criteria. Patient tolerance: Patient tolerated the procedu re well with no immediate complications CRITICAL CARE (04/01/2020 4:51 AM CDT) Narrative Performed At Glendy Clayton MD 04/15/20203:33 PM Critical Care Performed by: Glendy Clayton MD Authorized by: Glendy Clayton MD Total critical care time: 30 minutes Critical care was necessary to treat or prevent imminent or life-threatening deterioration of the fo llowing conditions: respiratory failure and [employer] failure or compromise. Critical care was time spent personally by me on the f ollowing activities: discussions with consultants, evaluation of patient's response to treatment, obtaining history from patien t or surrogate, ordering and review of laboratory studies, pulse oxim etry, development of treatment plan with patient or surrogate, interpre tation of cardiac output measurements, examination of patient, ordering and per forming treatments and interventions, ordering and review o f radiographic studies and re-evaluation of patient's condition. after 07/03/2019 Insurance Payer Benefit Plan / Group Subscriber ID Type Phone A ddress MEDICARE MEDICARE A B xxxxxxxxxxx Medicare [place] MEDICAID MEDICAID [place] xxxxxxxxx CDC REVIEW CDC REVIEW [address] [place] [address] MEDICAID MEDICAID [facility] xxxxxxxxx Medicaid Advance Directives For more information, please contact:[facility] [place], [place] [phone] Code Status Date Activated Date Inactivated Comments Full Code 04/01/2020 6:44 AM 04/16/2020 10:45 AM This code status was determined by: Patient Full Code 04/22/2016 12:20 PM 04/29/2016 5:47 PM This code status was determined by: Patient
--- OUTSIDE RECORDS SUMMARY | 2020-07-03 13:02 | XMS REPORT | Continuity of Care Document ---
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 Melody Burton [facility] MAGNESIUM 2020-04-05 18:48:00 Bartsch, [facility] PHOSPHORUS 2020-04-05 18:48:00 LTAC[facility] CBC W/PLT COUNT & AUTO 2020-04-05 18:48:00 [facility] SARS-COV2/RT-PCR ([facility] & 2020-04-05 17:02:00 Melody Burton [facility] - REF LABS) [facility] POCT-GLUCOSE METER 2020-04-05 16:51:00 [facility] XR CHEST 1 VIEW 2020-04-05 16:46:00 [facility] PORTABLE/BEDSIDE [facility] LACTIC ACID, VENOUS 2020-04-05 16:24:00 [facility] ECG 12-LEAD 2020-04-05 16:08:18 [facility] ECG 12-LEAD 2020-04-05 13:27:01 LTAC[facility] located within [facility] POCT-GLUCOSE METER 2020-04-05 11:22:00 [facility] POCT-GLUCOSE METER 2020-04-05 08:11:00 [facility] POCT-GLUCOSE METER 2020-04-04 20:58:00 [facility] POCT-GLUCOSE METER 2020-04-04 17:52:00 [facility] HEPATIC FUNCTION PANEL 2020-04-04 15:21:00 [facility] CBC W/PLT COUNT & AUTO 2020-04-04 15:20:00 [facility] REPORT OF PROCEDURE - 2020-04-04 13:41:29 Provider, [facility] - ENDOSCOPY SCAN [facility] POCT-GLUCOSE METER 2020-04-04 11:41:00 [facility] POCT-GLUCOSE METER 2020-04-04 08:55:00 [facility] BASIC METABOLIC PANEL (7) 2020-04-04 05:30:00 Chantell Larson CH, I [facility] MAGNESIUM 2020-04-04 05:30[facility] 2020-04-04 05:30:00 [facility] W/PLT COUNT & AUTO 2020-04-04 05:30:00 Kirit De La [facility] POCT-GLUCOSE METER 2020-04-03 21:53:00 [facility] POCT-GLUCOSE METER 2020-04-03 17:49:00 [facility] POCT-GLUCOSE METER 2020-04-03 11:26:00 [facility] POCT-GLUCOSE METER 2020-04-03 07:24:00 [facility] US ABDOMEN LIMITED 2020-04-03 05:45:00 [facility] HEPATIC FUNCTION PANEL 2020-04-03 03:34:00 [facility] BASIC METABOLIC PANEL (7) 2020-04-03 03:34:00 Chantell Larson CH, I [facility] MAGNESIUM 2020-04-03 03:34:00 [facility] PHOSPHORUS 2020-04-03 03:34:00 [facility] HEMOGLOBIN A1C 2020-04-03 03:34:00 LTAC[facility] located [facility] CBC W/PLT COUNT & AUTO 2020-04-03 03:34:00 Kirit De La Cruz [facility] POCT-GLUCOSE METER 2020-04-02 21:09:00 [facility] MR BRAIN WITHOUT IV 2020-04-02 20:22:00 [place] Lorene Sarkar [facility] POCT-GLUCOSE METER 2020-04-02 17:17:00 [facility] RAPID DRUG SCREEN, URINE 2020-04-02 13:14:00 Kami Lorene [facility] DRUG SCREEN, URINE, 2020-04-02 13:12:00 Kami Lorene [facility] AMMONIA 2020-04-02 12:22:00 Denisse [facility] BLOOD CULTURE 2020-04-02 12:08:00 Denisse [facility] POCT-GLUCOSE METER 2020-04-02 11:00:00 [facility] POCT-GLUCOSE METER 2020-04-02 08:33:00 [facility] EEG 12-26 HR CONTINUOUS 2020-04-02 06:32:00 Glendy Clayton [facility] - MONITORING WITH VIDEO Medical Ce nter BASIC METABOLIC PANEL (7) 2020-04-02 04:43:00 Chantell Larson CH I [facility] CBC W/PLT COUNT & AUTO 2020-04-02 04:43:00 Denisse [facility] POCT-GLUCOSE METER 2020-04-02 01:53:00 Denisse [facility] POCT-GLUCOSE METER 2020-04-01 20:44:00 Denisse [facility] HEPATIC FUNCTION PANEL 2020-04-01 18:46:00 Denisse [facility] POCT-GLUCOSE METER 2020-04-01 17:57:00 [facility] TSH/FREE T4 IF INDICATED 2020-04-01 14:13:00 Denisse [facility] VITAMIN B12 AND FOLATE 2020-04-01 14:13:00 Denisse [facility] LITHIUM LEVEL 2020-04-01 14:13:00 Denisse [facility] T4, FREE 2020-04-01 14:13:00 [facility] BLOOD CULTURE 2020-04-01 14:11:00 Denisse [facility] POCT-GLUCOSE METER 2020-04-01 12:22:00 [facility] 12-LEAD 2020-04-01 08:31:07 [facility] SARS-COV2/RT-PCR ([facility] & 2020-04-01 05:24:00 Forrest, [facility] REF LABS) [facility] BASIC METABOLIC PANEL (7) 2020-04-01 05:08:00 Forrest, [facility] MAGNESIUM 2020-04-01 05:08:00 Forrest, [facility] CREATINE KINASE (CK) 2020-04-01 05:08:00 Forrest, [facility] PHOSPHORUS 2020-04-01 05:08:00 Forrest, [facility] PT/APTT 2020-04-01 05:08:00 [facility], [facility] TROPONIN I 2020-04-01 05:08:00 [facility] CBC W/PLT COUNT & AUTO 2020-04-01 05:08:00 [facility] DIFFERENTIAL [facility] URINALYSIS W/ REFLEX URINE 2020-04-01 05:04:00 Forrest, [facility] C HI [facility] XR CHEST 1 VIEW 2020-04-01 04:58:00 Forrest, [facility] PORTABLE/BEDSIDE Medical Center CRITICAL CARE 2020-04-01 04:51:54 Forrest, [facility] ED ECG INTERPRETATION 2020-04-01 04:51:54 Forrest, [facility] HP FC FLOW CYTOMETRY BLOOD 2019-07-19 14:02:00 Renee Manley COLLECTION COMPLETE BLOOD COUNT W/ 2019-07-19 14:02:00 Renee Manley MD DIFFERENTIAL HEPATIC FUNCTION PANEL 2019-07-19 14:02:00 Renee Manley MD PARTIAL THROMBOPLASTIN TIME 2019-07-19 14:02:00 Renee Manley MD PROTHROMBIN TIME 2019-07-19 14:02:00 Renee Manley MD HEPATITIS C VIRUS RNA 2019-07-19 14:02:00 Renee Manley MD And ersdeena DETECT/QUANT, SERUM Results CBC 2019-07-19 14:02:00 Renee Manley MD MANUAL DIFFERENTIAL 2019-07-19 14:02:00 Renee Manley MD Georges son ALBUMIN LEVEL 2019-07-19 14:02:00 Renee Manley MD ALKALINE PHOSPHATASE 2019-07-19 14:02:00 Renee Manley MD rson ALANINE AMINOTRANSFERASE 2019-07-19 14:02:00 Renee Manley MD ASPARTATE AMINOTRANSFERASE 2019-07-19 14:02:00 Renee Manley TOTAL PROTEIN 2019-07-19 14:02:00 Renee Manley MD FRACTIONATED BILIRUBIN 2019-07-19 14:02:00 Renee Manley MD HP FC RATIO 2019-07-19 14:02:00 Renee Manley MD Encounters Start End Encounter Admission Attending Care Care Encounter Source Date/Time Date/Time Type Type Clinicians Facility Department ID 2020-06-13 2020-06-13 [facility] [id number] 11:00:00 11:00:00 [facility] Medicine Medicine Outpati ent Clinics 2020-05-24 2020-05-24 Outpatient AWILDA VERNON MDA MDA [id number] MD 00:00:00 00:00:00 NEDA melendez 2020-05-23 2020-05-23 Outpatient AWILDA VERNON MDA MDA [id number] MD 00:00:00 00:00:00 NEDA melnedez 2020-05-13 2020-05-13 Outpatient AWILDA SULLIVAN MDA MDA [id number] 00:00:00 00:00:00 FAUSTINO melendez 2020-05-07 2020-05-07 Outpatient AWILDA VERNON MDA MDA [id number] 00:00:00 00:00:00 NEDA Georges jeancarlos n 2020-05-07 2020-05-07 Outpatient AWILDA VERNON MDA MDA [id number] 00:00:00 00:00:00 NEDAJOSE DE JESUS Su so n 2020-04-30 2020-04-30 Outpatient AWILDA POLANCO MDA MDA [id number] MD 09:15:00 23:59:00 LAMBERTO Georges so n 2019-10-18 2019-10-18 [facility] [id number] 08:20:00 08:20:00 [facility] 2019-10-10 2019-10-10 [facility] [id number] 16:00:00 16:00:00 [facility] ent [facility] Results Test Description Test Time Test Comments Results Result Comments Source POC-Glucose meter 2020-04-15 22:17:00 Test Item Value Reference Range Interpretation Comme nts POC-Glucose Meter (test code = 124 mg/dL 70-110 H : TESTED AT [facility] [address], [facility] 30: Reporting Developer/Techni janel ID = [id number] for RAY ERVIN Lab Interpretation (test code = Abnormal 00988-0) [facility] [id number] 22:17:00 Test Item Value Reference Range Interpretation Comments POC-GLUCOSE METER 124 mg/dL 70-110 H : TESTED A T [facility] 6720 ([facility]) (test code = [facility], 1538) [address]: Reporting Developer/Techni janel ID = [id number] for SHAN BROWN RAY POCT-GLUCOSE [id number] 12:55:00 Test Item Value Reference Range Interpretation Comments POC-GLUCOSE METER 189 mg/dL 70-110 H : TESTED A T [facility] 6720 (BEAKER) (test code = [facility], 1538) 87131: Reporting Developer/Techni janel ID = [id number] for LUCAS LOWE POCT-GLUCOSE [id number] 08:26:00 Test Item Value Reference Range Interpretation Comments POC-GLUCOSE METER 123 mg/dL 70-110 H : TESTED A T [facility] 6720 ([facility]) (test code = [facility], 153) [address]: Reporting Developer/Techni janel ID = [id number] for JOE BINGHAM POCT-GLUCOSE [id number] 21:31:00 Test Item Value Reference Range Interpretation Comments POC-GLUCOSE METER 176 mg/dL 70-110 H : Notified RN/MD: ([facility]) (test code = TESTED AT [place] 2214720 1538) [facility], [address]: Reporting Developer/Techni janel ID = [id number] for LATHBRIDGE, ZAYDA ICE [place] [id number] 11:45:00 Test Item Value Reference Range Interpretation Comments [place] Level (test code = 0.6 mmol/L 0.8-1.2 L 19741-8) Lab Interpretation (test code = Abnormal 82631-5) [facility] [id number] 11:45:00 Test Item Value Reference Range Interpretation Comments LITHIUM LEVEL (BEAKER) (test code 0.6 mmol/L 0.8-1.2 L = 630) POCT-GLUCOSE [id number] 17:15:00 Test Item Value Reference Range Interpretation Comments POC-GLUCOSE METER 128 mg/dL 70-110 H : [facility] (test code = [facility], 153) [address]: Reporting Developer/Techni janel ID = [id number] for HI LUCAS BETH POCT-GLUCOSE [id number] 12:20:00 Test Item Value Reference Range Interpretation Comments POC-GLUCOSE METER 108 mg/dL 70-110 : [facility] (test code = [facility], 153) [address]25[address]: Reporting Developer/Techni janel ID = [id number] for Sm ith, Elaina POCT-GLUCOSE [id number] 08:34:00 Test Item Value Reference Range Interpretation Comments POC-GLUCOSE METER 115 mg/dL 70-110 H : [facility]) (test code = [facility], 153) [address]: Reporting Developer/Techni janel ID = [id number] for Sm ith, Elaina POCT-GLUCOSE [id number] 20:59:00 Test Item Value Reference Range Interpretation Comments POC-GLUCOSE METER 152 mg/dL 70-110 H : TESTED A T [facility] 6720 (BEAKER) (test code = [facility], 1538) [address]: Reporting Developer/Techni janel ID = [id number] for EMBER SCRUGGS POCT-GLUCOSE [id number] 17:29:00 Test Item Value Reference Range Interpretation Comments POC-GLUCOSE METER 103 mg/dL 70-110 : TESTED A T [facility] 6720 (BEAKER) (test code [facility], = 1538) [address]: Reporting Developer/Techni janel ID = [id number] for TSEG GAI, TSIGHEREDA POCT-GLUCOSE [id number] 12:22:00 Test Item Value Reference Range Interpretation Comments POC-GLUCOSE METER 204 mg/dL 70-110 H : Not[facility] RN/MD: [facility] = 1538) [facility], 770 30: Reporting Developer/Techni janel ID = [id number] for TSEG GAI, TSIGHEREDA POCT-GLUCOSE [id number] 08:43:00 Test Item Value Reference Range Interpretation Comments POC-GLUCOSE METER 132 mg/dL 70-110 H : TESTED A T [facility] 6720 (BEAKER) (test code [facility], = 1538) [address]: Reporting Developer/Techni janel ID = [id number] for TSEG GAI, TSIGHEREDA POCT-GLUCOSE [id number] 07:13:00 Test Item Value Reference Range Interpretation Comments POC-GLUCOSE METER 200 mg/dL 70-110 H : TESTED A T [facility] 6720 (BEAKER) (test code = [facility], 1538) 92126: Reporting Developer/Techni janel ID = [id number] for OC FELICIA, KULDIP POCT-GLUCOSE [id number] 16:54:00 Test Item Value Reference Range Interpretation Comments POC-GLUCOSE METER 103 mg/dL 70-110 : TESTED A T [facility] 6720 (BEAKER) (test code = [facility], 1538) 92483: Reporting Developer/Techni janel ID = [id number] for HU NT, KATIE POCT-GLUCOSE [id number] 11:03:00 Test Item Value Reference Range Interpretation Comments POC-GLUCOSE METER 155 mg/dL 70-110 H : TESTED A T [facility] 6720 (BEAKER) (test code = [facility], 1538) 42[address]: Reporting Developer/Techni janel ID = [id number] for HU NT, KATIE POCT-GLUCOSE [id number] 07:06:00 Test Item Value Reference Range Interpretation Comments POC-GLUCOSE METER 129 mg/dL 70-110 H : TESTED A T [facility] 6720 (BEAKER) (test code = [facility], [facility]) [address]: Reporting Developer/Techni janel ID = [id number] for HU NT, KATIE POCT-GLUCOSE [id number] 20:59:00 Test Item Value Reference Range Interpretation Comments POC-GLUCOSE METER 167 mg/dL 70-110 H : TESTED A T [facility] 6720 (BEAKER) (test code = [facility], [facility]) 14657: Reporting Developer/Techni janel ID = [id number] for KE BE, SAUDATU POCT-GLUCOSE [id number] 17:53:00 Test Item Value Reference Range Interpretation Comments POC-GLUCOSE METER 185 mg/dL 70-110 H : TESTED A T [facility] 6720 (BEAKER) (test code = [facility], [facility]) [address]7824: Reporting Developer/Techni janel ID = [id number] for Ma thew, Remyia POCT-GLUCOSE [id number] 11:18:00 Test Item Value Reference Range Interpretation Comments POC-GLUCOSE METER 145 mg/dL 70-110 H : TESTED A T [facility] 6720 (BEAKER) (test code = [facility], 1538) 37[address]: Reporting Developer/Techni janel ID = [id number] for Ma thew, Remyia POCT-GLUCOSE [id number] 07:23:00 Test Item Value Reference Range Interpretation Comments POC-GLUCOSE METER 105 mg/dL 70-110 : TESTED A T [facility] 6720 (BEAKER) (test code = [facility], 1538) 72926: Reporting Developer/Techni janel ID = [id number] for Ma thew, Remyia Basic Metabolic [id number] 04:32:00 Test Item Value Reference Range Interpretation Comments Sodium (test code = 143 meq/L 877-842 0895-2) Potassium (test code = 4.0 meq/L 3.5-5.1 2823-3) Chloride (test code = 111 meq/L 98-107 H 2075-0) CO2 (test code = 25 meq/L 22-29 2028-9) BUN (test code = 11 mg/dL 7-21 3094-0) Creatinine (test code 0.76 mg/dL 0.57-1.25 = 2160-0) Glucose (test code = 106 mg/dL 70-105 H 2345-7) Calcium (test code = 9.6 mg/dL 8.4-10.2 29226-0) EGFR (test code = 79 mL/min/1.73 [place] [address]-6) NOT ACCURATE CREATININE CLEARANCE IN PREDICTING GLOMERULAR FILTRATION RATE . ESTIMATED GFR I S NOT APPLICABLE FOR DIALYSIS PATIENTS. VIKKI (test code = VIKKI) Reporting Developer ID - ZAHRA M Lab Interpretation Abnormal (test code = 71680-3) [facility] [id number] 04:32:00 Test Item Value Reference Range Interpretation Comments SODIUM (BEAKER) 143 meq/L 136-145 (test code = 381) POTASSIUM (BEAKER) 4.0 meq/L 3.5-5.1 (test code = 379) CHLORIDE (BEAKER) 111 meq/L 98-107 H (test code = 382) CO2 (BEAKER) (test 25 meq/L -29 code = 355) BLOOD UREA NITROGEN 11 mg/dL 7-21 (BEAKER) (test code = 354) CREATININE (BEAKER) 0.76 mg/dL 0.57-1.25 (test code = 358) GLUCOSE RANDOM 106 mg/dL 70-105 H (BEAKER) (test code = 652) CALCIUM (BEAKER) 9.6 mg/dL 8.4-10.2 (test code = 697) EGFR (BEAKER) (test 79 mL/min/1.73 ESTIMA JASSI GFR IS code = 1092) sq m NOT ACCURATE CREATININE CLEARANCE IN PREDICTING GLOMERULAR FILTRATION RATE . ESTIMATED GFR I S NOT APPLICABLE FOR DIALYSIS PATIEN TS. Reporting Developer ID - ZAHRA MCBC with platelet count + automated [id number] 04:10:00 Test Item Value Reference Range Interpretation Comments WBC (test code = 6690-2) 4.6 3.5- 10.5 K/L RBC (test code = 789-8) 4.19 3.93- 5.22 M/L MCHC (test code = 786-4) 31.9 32.2- 35.5 GM/DL L Hematocrit (test code = 4544-3) 37.6 % 34.1-44.9 MCV (test code = 787-2) 89.7 fL 79.4-94.8 MCH (test code = 785-6) 28.6 pg 25.6-32.2 RDW (test code = 788-0) 13.8 % 11.7-14.4 Platelets (test code = 777-3) 92 150- 450 K/CU MM L MPV (test code = 80864-6) 12.3 fL 9.4-12.3 nRBC (test code = 413) 0 0- 0 /100 WBC % Neutros (test code = 429) 48 % % Lymphs (test code = 430) 37 % % Monos (test code = 431) 11 % % Eos (test code = 432) 3 % % Baso (test code = 437) 0 % # Neutros (test code = 670) 2.20 1.56- 6.13 K/L # Lymphs (test code = 414) 1.69 1.18- 3.74 K/L # Monos (test code = 415) 0.50 0.24- 0.36 K/L H # Eos (test code = 416) 0.13 0.04- 0.36 K/L # Baso (test code = 417) 0.02 0.01- 0.08 K/L Immature Granulocytes-Relative 0 % 0-1 (test code = 2801) Lab Interpretation (test code = Abnormal 71834-2) [facility] W/PLT COUNT & AUTO [id number] 04:10:00 Test Item Value Reference Range Interpretation Comments WHITE BLOOD CELL COUNT (BEAKER) 4.6 K/ L 3.5-10.5 (test code = 775) RED BLOOD CELL COUNT (BEAKER) 4.19 M/ L 3.93-5.22 (test code = 761) HEMOGLOBIN (BEAKER) (test code = 12.0 GM/DL 11.2-15.7 410) HEMATOCRIT (BEAKER) (test code = 37.6 % 34.1-44.9 411) MEAN CORPUSCULAR VOLUME (BEAKER) 89.7 fL 79.4-94.8 (test code = 753) MEAN CORPUSCULAR HEMOGLOBIN 28.6 pg 25.6-32.2 (BEAKER) (test code = 751) MEAN CORPUSCULAR HEMOGLOBIN CONC 31.9 GM/DL 32.2-35.5 L (BEAKER) (test code = 752) RED CELL DISTRIBUTION WIDTH 13.8 % 11.7-14.4 (BEAKER) (test code = 412) PLATELET COUNT (BEAKER) (test code 92 K/CU MM 150-450 L = 756) MEAN PLATELET VOLUME (BEAKER) 12.3 fL 9.4-12.3 (test code = 754) NUCLEATED RED BLOOD CELLS (BEAKER) 0 /100 WBC 0-0 (test code = 413) NEUTROPHILS RELATIVE PERCENT 48 % (BEAKER) (test code = 429) LYMPHOCYTES RELATIVE PERCENT 37 % (BEAKER) (test code = 430) MONOCYTES RELATIVE PERCENT 11 % (BEAKER) (test code = 431) EOSINOPHILS RELATIVE PERCENT 3 % (BEAKER) (test code = 432) BASOPHILS RELATIVE PERCENT 0 % (BEAKER) (test code = 437) NEUTROPHILS ABSOLUTE COUNT 2.20 K/ L 1.56-6.13 (BEAKER) (test code = 670) LYMPHOCYTES ABSOLUTE COUNT 1.69 K/ L 1.18-3.74 (BEAKER) (test code = 414) MONOCYTES ABSOLUTE COUNT (BEAKER) 0.50 K/ L 0.24-0.36 H (test code = 415) EOSINOPHILS ABSOLUTE COUNT 0.13 K/ L 0.04-0.36 (BEAKER) (test code = 416) BASOPHILS ABSOLUTE COUNT (BEAKER) 0.02 K/ L 0.01-0.08 (test code = 417) IMMATURE GRANULOCYTES-RELATIVE 0 % 0-1 PERCENT (BEAKER) (test code = 2801) POCT-GLUCOSE [id number] 21:41:00 Test Item Value Reference Range Interpretation Comments POC-GLUCOSE METER 130 mg/dL 70-110 H : TESTED A T [facility] 6720 (BEAKER) (test code = [facility], 1538) [address]: Reporting Developer/Techni janel ID = [id number] for SA NTOS, UYEN POCT-GLUCOSE [id number] 17:17:00 Test Item Value Reference Range Interpretation Comments POC-GLUCOSE METER 107 mg/dL 70-110 : [facility] T [facility] 6720 [facility] (test code = [facility], 1538) [address]: Reporting Developer/Techni janel ID = [id number] for CA STRO, JONAH LITHIUM [id number] 13:12:00 Test Item Value Reference Range Interpretation Comments LITHIUM LEVEL (AKER) (test code 0.5 mmol/L 0.8-1.2 L = 630) POCT-GLUCOSE [id number] 07:24:00 Test Item Value Reference Range Interpretation Comments POC-GLUCOSE METER 124 mg/dL 70-110 H : [facility] T [facility] 6720 [facility] (test code = [facility], 153) 86845: Reporting Developer/Techni janel ID = [id number] for CA STRO, JONAH POCT-GLUCOSE [id number] 21:34:00 Test Item Value Reference Range Interpretation Comments POC-GLUCOSE METER 174 mg/dL 70-110 H : [facility] T [facility] 6720 [facility] (test code = [facility], 153) 20968: Reporting Developer/Techni janel ID = [id number] for DE NNIS, BING POCT-GLUCOSE [id number] 18:20:00 Test Item Value Reference Range Interpretation Comments POC-GLUCOSE METER 125 mg/dL 70-110 H : TESTED A T [facility] 6720 (BEAKER) (test code = [facility], 1538) 39412: Reporting Developer/Techni janel ID = [id number] for HI DALGO, AGLAE POCT-GLUCOSE [id number] 12:47:00 Test Item Value Reference Range Interpretation Comments POC-GLUCOSE METER 100 mg/dL 70-110 : TESTED A T [facility] (BEAKER) (test code = [facility], 1538) 57452: Reporting Developer/Techni janel ID = [id number] for HI DALGO, AGLAE Comprehensive metabolic [id number] 04:30:00 Test Item Value Reference Range Interpretation Comments Protein, Total (test 7.5 6.0- 8.3 gm/dL code = 2885-2) Albumin (test code = 3.7 g/dL 3.5-5 96908-5) Alkaline Phosphatase 94 U/L 40-150 (test code = 6768-6) Total Bilirubin (test 0.9 mg/dL 0.2-1.2 code = 1975-2) Sodium (test code = 141 meq/L 930-652 2693-2) Potassium (test code = 4.0 meq/L 3.5-5.1 2823-3) Chloride (test code = 110 meq/L 98-107 H 2075-0) CO2 (test code = 23 meq/L 22-29 8-9) BUN (test code = 10 mg/dL 7-21 3094-0) Creatinine (test code 0.72 mg/dL 0.57-1.25 = 2160-0) Glucose (test code = 123 mg/dL 70-105 H 2345-7) Calcium (test code = 9.6 mg/dL 8.4-10.2 05091-3) AST (test code = 28 U/L 5-34 1920-8) ALT (test code = 39 U/L 6-55 1742-6) EGFR (test code = 84 mL/min/1.73 sq [place] [address]-2) NOT ACCURATE CREATININE CLEARANCE IN PREDICTING GLOMERULAR FILTRATION RATE . ESTIMATED GFR I S NOT APPLICABLE FOR DIALYSIS PATIENTS. VIKKI (test code = VIKKI) Reporting Developer ID - [id number] Interpretation Abnormal (test code = 68140-3) [facility] HospitalCOMPREHENSIVE METABOLIC [id number] 04:30:00 Test Item Value Reference Range Interpretation Comments TOTAL PROTEIN 7.5 gm/dL 6.0-8.3 (BEAKER) (test code = 770) ALBUMIN (BEAKER) 3.7 g/dL 3.5-5.0 (test code = 1145) ALKALINE PHOSPHATASE 94 U/L 40-150 (BEAKER) (test code = 346) BILIRUBIN TOTAL 0.9 mg/dL 0.2-1.2 (BEAKER) (test code = 377) SODIUM (BEAKER) (test 141 meq/L 136-145 code = 381) POTASSIUM (BEAKER) 4.0 meq/L 3.5-5.1 (test code = 379) CHLORIDE (BEAKER) 110 meq/L 98-107 H (test code = 382) CO2 (BEAKER) (test 23 meq/L 22-29 code = 355) BLOOD UREA NITROGEN 10 mg/dL 7-21 (BEAKER) (test code = 354) CREATININE (BEAKER) 0.72 mg/dL 0.57-1.25 (test code = 358) GLUCOSE RANDOM 123 mg/dL 70-105 H (BEAKER) (test code = 652) CALCIUM (BEAKER) 9.6 mg/dL 8.4-10.2 (test code = 697) AST (SGOT) (BEAKER) 28 U/L 5-34 (test code = 353) ALT (SGPT) (BEAKER) 39 U/L 6-55 (test code = 347) EGFR (BEAKER) (test 84 mL/min/1.73 ESTIMA JASSI GFR IS code = 1092) sq m NOT ACCURATE CREATININE CLEARANCE IN PREDICTING GLOMERULAR FILTRATION RATE . ESTIMATED GFR I S NOT APPLICABLE FOR DIALYSIS PATIEN TS. Reporting Developer ID - PIAYA LCBC W/PLT COUNT & AUTO [id number] 03:57:00 Test Item Value Reference Range Interpretation Comments WHITE BLOOD CELL COUNT (BEAKER) 4.2 K/ L 3.5-10.5 (test code = 775) RED BLOOD CELL COUNT (BEAKER) 4.36 M/ L 3.93-5.22 (test code = 761) HEMOGLOBIN (BEAKER) (test code = 13.0 GM/DL 11.2-15.7 410) HEMATOCRIT (BEAKER) (test code = 40.0 % 34.1-44.9 411) MEAN CORPUSCULAR VOLUME (BEAKER) 91.7 fL 79.4-94.8 (test code = 753) MEAN CORPUSCULAR HEMOGLOBIN 29.8 pg 25.6-32.2 (BEAKER) (test code = 751) MEAN CORPUSCULAR HEMOGLOBIN CONC 32.5 GM/DL 32.2-35.5 (BEAKER) (test code = 752) RED CELL DISTRIBUTION WIDTH 14.0 % 11.7-14.4 (BEAKER) (test code = 412) PLATELET COUNT (BEAKER) (test code 93 K/CU MM 150-450 L = 756) MEAN PLATELET VOLUME (BEAKER) 12.2 fL 9.4-12.3 (test code = 754) NUCLEATED RED BLOOD CELLS (BEAKER) 0 /100 WBC 0-0 (test code = 413) NEUTROPHILS RELATIVE PERCENT 57 % (BEAKER) (test code = 429) LYMPHOCYTES RELATIVE PERCENT 29 % (BEAKER) (test code = 430) MONOCYTES RELATIVE PERCENT 11 % (BEAKER) (test code = 431) EOSINOPHILS RELATIVE PERCENT 2 % (BEAKER) (test code = 432) BASOPHILS RELATIVE PERCENT 1 % (BEAKER) (test code = 437) NEUTROPHILS ABSOLUTE COUNT 2.35 K/ L 1.56-6.13 (BEAKER) (test code = 670) LYMPHOCYTES ABSOLUTE COUNT 1.20 K/ L 1.18-3.74 (BEAKER) (test code = 414) MONOCYTES ABSOLUTE COUNT (BEAKER) 0.47 K/ L 0.24-0.36 H (test code = 415) EOSINOPHILS ABSOLUTE COUNT 0.10 K/ L 0.04-0.36 (BEAKER) (test code = 416) BASOPHILS ABSOLUTE COUNT (BEAKER) 0.02 K/ L 0.01-0.08 (test code = 417) IMMATURE GRANULOCYTES-RELATIVE 0 % 0-1 PERCENT (BEAKER) (test code = 2801) POCT-GLUCOSE [id number] 21:19:00 Test Item Value Reference Range Interpretation Comments POC-GLUCOSE METER 111 mg/dL 70-110 H : TESTED A T [facility] 6720 (BEAKER) (test code = [facility], 153) 11383: Reporting Developer/Techni janel ID = [id number] for Neda Pineda POCT-GLUCOSE [id number] 17:31:00 Test Item Value Reference Range Interpretation Comments POC-GLUCOSE METER 106 mg/dL 70-110 : TESTED A T [facility] 6720 (BEAKER) (test code = [facility], 153) 05768: Reporting Developer/Techni janel ID = [id number] for Caleb Barcenas Blood [id number] 14:00:00 Test Item Value Reference Range Interpretation Comments Result (test code = No growth in 5 days 6463-4) [facility] HospitalBLO[facility] [id number] 14:00:00 Test Item Value Reference Range Interpretation Comments CULTURE (BEAKER) (test No growth in 5 days code = 1095) POCT-GLUCOSE [id number] 12:14:00 Test Item Value Reference Range Interpretation Comments POC-GLUCOSE METER 113 mg/dL 70-110 H : TESTED A T [facility] 6720 (BEAKER) (test code = [facility], 1538) 50318: Reporting Developer/Techni janel ID = [id number] for Caleb Barcenas POCT-GLUCOSE [id number] 08:06:00 Test Item Value Reference Range Interpretation Comments POC-GLUCOSE METER 133 mg/dL 70-110 H : TESTED A T [facility] 6720 (BEAKER) (test code = [facility], 1538) 64162: Reporting Developer/Techni janel ID = [id number] for Ingris Barcenasyia COMPREHENSIVE METABOLIC [id number] 05:57:00 Test Item Value Reference Range Interpretation Comments TOTAL PROTEIN 7.7 gm/dL 6.0-8.3 (BEAKER) (test code = 770) ALBUMIN (BEAKER) 3.7 g/dL 3.5-5.0 (test code = 1145) ALKALINE PHOSPHATASE 100 U/L 40-150 (BEAKER) (test code = 346) BILIRUBIN TOTAL 0.8 mg/dL 0.2-1.2 (BEAKER) (test code = 377) SODIUM (BEAKER) (test 140 meq/L 136-145 code = 381) POTASSIUM (BEAKER) 3.9 meq/L 3.5-5.1 (test code = 379) CHLORIDE (BEAKER) 110 meq/L 98-107 H (test code = 382) CO2 (BEAKER) (test 20 meq/L 22-29 L code = 355) BLOOD UREA NITROGEN 7 mg/dL 7-21 (BEAKER) (test code = 354) CREATININE (BEAKER) 0.73 mg/dL 0.57-1.25 (test code = 358) GLUCOSE RANDOM 123 mg/dL 70-105 H (BEAKER) (test code = 652) CALCIUM (BEAKER) 9.3 mg/dL 8.4-10.2 (test code = 697) AST (SGOT) (BEAKER) 36 U/L 5-34 H (test code = 353) ALT (SGPT) (BEAKER) 44 U/L 6-55 (test code = 347) EGFR (BEAKER) (test 83 mL/min/1.73 ESTIMA JASSI GFR IS code = 1092) sq m NOT ACCURATE CREATININE CLEARANCE IN PREDICTING GLOMERULAR FILTRATION RATE . ESTIMATED GFR I S NOT APPLICABLE FOR DIALYSIS PATIEN TS. Reporting Developer ID - PIAYA LCBC W/PLT COUNT & AUTO [id number] 05:15:00 Test Item Value Reference Range Interpretation Comments WHITE BLOOD CELL COUNT (BEAKER) 4.7 K/ L 3.5-10.5 (test code = 775) RED BLOOD CELL COUNT (BEAKER) 4.42 M/ L 3.93-5.22 (test code = 761) HEMOGLOBIN (BEAKER) (test code = 13.0 GM/DL 11.2-15.7 410) HEMATOCRIT (BEAKER) (test code = 39.8 % 34.1-44.9 411) MEAN CORPUSCULAR VOLUME (BEAKER) 90.0 fL 79.4-94.8 (test code = 753) MEAN CORPUSCULAR HEMOGLOBIN 29.4 pg 25.6-32.2 (BEAKER) (test code = 751) MEAN CORPUSCULAR HEMOGLOBIN CONC 32.7 GM/DL 32.2-35.5 (BEAKER) (test code = 752) RED CELL DISTRIBUTION WIDTH 14.0 % 11.7-14.4 (BEAKER) (test code = 412) PLATELET COUNT (BEAKER) (test code 71 K/CU MM 150-450 L = 756) MEAN PLATELET VOLUME (BEAKER) 12.0 fL 9.4-12.3 (test code = 754) NUCLEATED RED BLOOD CELLS (BEAKER) 0 /100 WBC 0-0 (test code = 413) NEUTROPHILS RELATIVE PERCENT 59 % (BEAKER) (test code = 429) LYMPHOCYTES RELATIVE PERCENT 30 % (BEAKER) (test code = 430) MONOCYTES RELATIVE PERCENT 10 % (BEAKER) (test code = 431) EOSINOPHILS RELATIVE PERCENT 0 % (BEAKER) (test code = 432) BASOPHILS RELATIVE PERCENT 0 % (BEAKER) (test code = 437) NEUTROPHILS ABSOLUTE COUNT 2.76 K/ L 1.56-6.13 (BEAKER) (test code = 670) LYMPHOCYTES ABSOLUTE COUNT 1.40 K/ L 1.18-3.74 (BEAKER) (test code = 414) MONOCYTES ABSOLUTE COUNT (BEAKER) 0.48 K/ L 0.24-0.36 H (test code = 415) EOSINOPHILS ABSOLUTE COUNT 0.02 K/ L 0.04-0.36 L (BEAKER) (test code = 416) BASOPHILS ABSOLUTE COUNT (BEAKER) 0.02 K/ L 0.01-0.08 (test code = 417) IMMATURE GRANULOCYTES-RELATIVE 1 % 0-1 PERCENT (BEAKER) (test code = 2801) POCT-GLUCOSE [id number] 21:12:00 Test Item Value Reference Range Interpretation Comments POC-GLUCOSE METER 197 mg/dL 70-110 H : TESTED A T [facility] 6720 (BEAKER) (test code = [place], 1538) 86[address]: Reporting Developer/Techni janel ID = [id number] for SUMMER OSWALD BLOOD [id number] 20:00:00 Test Item Value Reference Range Interpretation Comments CULTURE (BEAKER) (test No growth in 5 days code = 1095) Respiratory Panel [id number] 19:01:00 Test Item Value Reference Range Interpretation Comments Human Metapneumovirus Not detected Not detected, (test code = 18260-2) Equivocal Rhinovirus (test code = Not detected Not detected, 15206-0) Equivocal INFLUENZA A (NO Not detected Not detected, SUBTYPE) (test code = Equivocal 30328-7) Influenza A subtype H1 (test code = 35885-2) Influenza A Subtype H3 (test code = 43777-1) Influenza A Subtype H1-2009 (test code = 76773-9) Influenza B (test code Not detected Not detected, = 08304-4) Equivocal Respiratory Syncytial Not detected Not detected, Virus (test code = Equivocal 30579-2) Parainfluenza Virus 1 Not detected Not detected, (test code = 96519-3) Equivocal Parainfluenza Virus 2 Not detected Not detected, (test code = 16344-2) Equivocal Parainfluenza virus 3 Not detected Not detected, (test code = 72993-5) Equivocal Parainfluenza Virus 4 Not detected Not detected, (test code = 79913-1) Equivocal Adenovirus (test code = Not detected Not detected, 72326-5) Equivocal Coronavirus 229E (test Not detected Not detected, code = 33824-0) Equivocal Coronavirus HKU1 (test Not detected Not detected, code = 13810-9) Equivocal Coronavirus NL63 (test Not detected Not detected, code = 25782-1) Equivocal Coronavirus OC43 (test Not detected Not detected, code = 49953-9) Equivocal Bordetella Pertussis Not detected Not detected, (test code = 76449-9) Equivocal Chlamydophila Not detected Not detected, Pneumoniae (test code = Equivocal 44418-7) Mycoplasma Pneumoniae Not detected Not detected, (test code = 14346-8) Equivocal VIKKI (test code = VIKKI) Other viruses and bacteria not targeted by this PCR panel cannot be excluded; therefore clinical correlation and follow up of serology, culture results, and other molecular studies is required. The results are not intended to be used as the sole means for clinical diagnosis or patient management decisions. This sample was tested at the [facility] using the LocaiArray Respiratory Panel. It is FDA cleared and has been verified and approved by the [facility] for clinical use on nasopharyngeal swab specimens. The performance of the FilmArray RP has not been established in individuals who received influenza vaccine. Recent administration of a nasal influenza vaccine may cause false positive results for Influenza A and/orInfluenza B. [facility] [id number] 19:01:00 Test Item Value Reference Range Interpretation Comments HUMAN METAPNEUMOVIRUS Not detected Not detected, (BEAKER) (test code = 2683) Equivocal RHINOVIRUS (BEAKER) (test Not detected Not detected, code = 2684) Equivocal INFLUENZA A (BEAKER) (test Not detected Not detected, code = 2685) Equivocal INFLUENZA A (NO SUBTYPE) (test code = 3606) INFLUENZA A SUBTYPE H1 (BEAKER) (test code = 2686) INFLUENZA A SUBTYPE H3 (BEAKER) (test code = 2687) INFLUENZA A SUBTYPE H1-2009 (BEAKER) (test code = 3198) INFLUENZA B (BEAKER) (test Not detected Not detected, code = 2688) Equivocal RESPIRATORY SYNCYTIAL VIRUS Not detected Not detected, (BEAKER) (test code = 3199) Equivocal PARAINFLUENZA VIRUS 1 Not detected Not detected, (BEAKER) (test code = 2691) Equivocal PARAINFLUENZA VIRUS 2 Not detected Not detected, (BEAKER) (test code = 2692) Equivocal PARAINFLUENZA VIRUS 3 Not detected Not detected, (BEAKER) (test code = 2693) Equivocal PARAINFLUENZA VIRUS 4 Not detected Not detected, (BEAKER) (test code = 3200) Equivocal ADENOVIRUS (BEAKER) (test Not detected Not detected, code = 2694) Equivocal CORONAVIRUS 229E (BEAKER) Not detected Not detected, (test code = 3201) Equivocal CORONAVIRUS HKU1 (BEAKER) Not detected Not detected, (test code = 3202) Equivocal CORONAVIRUS NL63 (BEAKER) Not detected Not detected, (test code = 3203) Equivocal CORONAVIRUS OC43 (BEAKER) Not detected Not detected, (test code = 3204) Equivocal BORDETELLA PERTUSSIS Not detected Not detected, (BEAKER) (test code = 3205) Equivocal CHLAMYDOPHILA PNEUMONIAE Not detected Not detected, (BEAKER) (test code = 3206) Equivocal MYCOPLASMA PNEUMONIAE Not detected Not detected, (BEAKER) (test code = 3207) Equivocal Other viruses and bacteria not targeted by this PCR panel cannot be excluded; therefore clinical correlation and follow up of serology, culture results, and other molecular studies is required. The results are not intended to be used as the sole means for clinical diagnosis or patient management decisions. This sample was tested at the [facility] using the LocaiArray Respiratory Panel. It is FDA cleared and has been verified and approved by the [facility] for clinical use on nasopharyngeal swab specimens.The performance of the FilmArrayRP has not been established in individuals who received influenza vaccine. Recent administration ofa nasal influenza vaccine may cause false positive results for Influenza A and/orInfluenza B.CT, CHEST WITH IV CONTRAST- PE TEST DESIGN 2020-04-06 16:45:00FINAL REPORT Exam: CT pulmonary angiogram Clinical History: Pulmonary embolism Technique: Helical images of the chest were obtained after IV contrast administration using the pulmonary embolism protocol. Findings: There is no evidence of acute pulmonary embolism in the main pulmonary artery or its visualized branches. There is no evidence of pulmonary edema, consolidation, pleural effusion, or pneumothorax. The tracheobronchial tree is clear. There is no evidence of mediastinal or hilar adenopathy. The cardiac size is within normal limits. The great vessels are normal in caliber and configuration. A 1.6 cm hypodense lesion is noted in the left lobe of thyroid gland. The visualized upper abdominal solid organs are unremarkable. Deformity of the superior endplates is noted in 2 of the thoracic vertebral bodies in the mid and lower level. These may represent compression fractures, age indeterminate. Impression: 1. No CT evidence of acute pulmonary embolism. 2. 1.6 cm thyroid nodule. If indicated, ultrasound can be performed for further assessment. 3. Endplate deformity in 2 of the thoracic vertebral bodies which may represent compression fractures, age indeterminate. Signed: Lorenzo Cook MDReport Verified Date/Time: 04/06/2020 16:45:26 Reading Location: [address] Transitional Reading Room CT chest for pulmonary embolus 2020-04-06 16:45:00Interface, External Ris In - 04/06/2020 4:47 PM CDTFINAL REPORT Exam: CT pulmonary angiogram Clinical History: Pulmonary embolism Technique: Helical images of the chest were obtained after IV contrast administration using the pulmonary embolism protocol. Findings: There is no evidence of acute pulmonary embolism in the main pulmonary artery or its visualized branches. There is no evidence of pulmonary edema, consolidation, pleural effusion, or pneumothorax. The tracheobronchial tree is clear. There is no evidence of mediastinal or hilar adenopathy. The cardiac size is within normal limits. The great vessels are normal in caliber and configuration. A 1.6 cm hypodense lesionis noted in the left lobe of thyroid gland. The visualized upper abdominal solid organs are unremarkable. Deformity of the superior endplates is noted in 2 of the thoracic vertebral bodies in the mid and lower level. These may represent compression fractures, age indeterminate. Impression: 1. No CT evidence of acute pulmonary embolism. 2. 1.6 cm thyroid nodule. If indicated, ultrasound can be performed for further assessment. 3. Endplate deformity in 2 of the thoracic vertebral bodies which may represent compression fractures, age indeterminate. Signed: Lorenzo Cook MDReport Verified Date/Time: 04/06/2020 16:45:26 Reading Location: [address] Transitional Reading [facility] 14:25:00 Test Item Value Reference Range Interpretation Comments PTT (test code = 31.0 22.5- 36.0 seconds 77025-0) VIKKI (test code = VIKKI) 6 hours after starting heparin infusion and as indicated per sliding scale Lab Interpretation (test Normal code = 11894-6) [facility]APTT[facility] 14:25:00 Test Item Value Reference Range Interpretation Comments PARTIAL THROMBOPLASTIN TIME 31.0 seconds 22.5-36.0 (BEAKER) (test code = 760) 6 hours after starting heparin infusion and as indicated per sliding scalePOCT- GLUCOSE [id number] 12:08:00 Test Item Value Reference Range Interpretation Comments POC-GLUCOSE METER 135 mg/dL 70-110 H : TESTED A T [facility] 6720 (EyeEm) (test code = [place], 1538) [address]: Reporting Developer/Techni janel ID = [id number] for PO IRIER, JEREMY ECG 12 [id number] 11:22:15Interface, External Ris In - 04/06/2020 11:22 AM CDTVentricular Rate 119 BPMAtrial Rate 119 BPMP-R Interval 128 msQRS Duration 84 msQ-T Interval 308 msQTC Calculation(Bazett) 433 msP [place] 68 degreesR [place] 64 degreesT [place] 55 degreesSinus tachycardiaOtherwise normal ECGConfirmed by MD ESTELLE, ELVIA ([id number]) on 04/06/2020 11:22:13 [facility] [id number] 07:52:00 Test Item Value Reference Range Interpretation Comments POC-GLUCOSE METER 128 mg/dL 70-110 H : TESTED A T [facility] 6720 (BEAKER) (test code = [place], 1538) 07[address]: Reporting Developer/Techni janel ID = [id number] for PO IRIER, JEREMY COMPREHENSIVE METABOLIC [id number] 04:36:00 Test Item Value Reference Range Interpretation Comments TOTAL PROTEIN 8.0 gm/dL 6.0-8.3 (BEAKER) (test code = 770) ALBUMIN (BEAKER) 3.9 g/dL 3.5-5.0 (test code = 1145) ALKALINE PHOSPHATASE 104 U/L 40-150 (BEAKER) (test code = 346) BILIRUBIN TOTAL 1.3 mg/dL 0.2-1.2 H (BEAKER) (test code = 377) SODIUM (BEAKER) (test 137 meq/L 136-145 code = 381) POTASSIUM (BEAKER) 4.1 meq/L 3.5-5.1 (test code = 379) CHLORIDE (BEAKER) 106 meq/L 98-107 (test code = 382) CO2 (BEAKER) (test 23 meq/L 22-29 code = 355) BLOOD UREA NITROGEN 8 mg/dL 7-21 (BEAKER) (test code = 354) CREATININE (BEAKER) 0.79 mg/dL 0.57-1.25 (test code = 358) GLUCOSE RANDOM 138 mg/dL 70-105 H (BEAKER) (test code = 652) CALCIUM (BEAKER) 9.5 mg/dL 8.4-10.2 (test code = 697) AST (SGOT) (BEAKER) 47 U/L 5-34 H (test code = 353) ALT (SGPT) (BEAKER) 45 U/L 6-55 (test code = 347) EGFR (BEAKER) (test 76 mL/min/1.73 ESTIMA JASSI GFR IS code = 1092) sq m NOT ACCURATE CREATININE CLEARANCE IN PREDICTING GLOMERULAR FILTRATION RATE . ESTIMATED GFR I S NOT APPLICABLE FOR DIALYSIS PATIEN TS. Reporting Developer ID - PIAYA [id number] 04:10:00 Test Item Value Reference Range Interpretation Comments PARTIAL THROMBOPLASTIN TIME 29.3 seconds 22.5-36.0 (BEAKER) (test code = 760) Prior to initiating heparinCBC W/PLT COUNT & AUTO [id number] 04:02:00 Test Item Value Reference Range Interpretation Comments WHITE BLOOD CELL COUNT (BEAKER) 5.0 K/ L 3.5-10.5 (test code = 775) RED BLOOD CELL COUNT (BEAKER) 4.34 M/ L 3.93-5.22 (test code = 761) HEMOGLOBIN (BEAKER) (test code = 12.4 GM/DL 11.2-15.7 410) HEMATOCRIT (BEAKER) (test code = 38.9 % 34.1-44.9 411) MEAN CORPUSCULAR VOLUME (BEAKER) 89.6 fL 79.4-94.8 (test code = 753) MEAN CORPUSCULAR HEMOGLOBIN 28.6 pg 25.6-32.2 (BEAKER) (test code = 751) MEAN CORPUSCULAR HEMOGLOBIN CONC 31.9 GM/DL 32.2-35.5 L (BEAKER) (test code = 752) RED CELL DISTRIBUTION WIDTH 13.5 % 11.7-14.4 (BEAKER) (test code = 412) PLATELET COUNT (BEAKER) (test code 69 K/CU MM 150-450 L = 756) MEAN PLATELET VOLUME (BEAKER) 12.3 fL 9.4-12.3 (test code = 754) NUCLEATED RED BLOOD CELLS (BEAKER) 0 /100 WBC 0-0 (test code = 413) NEUTROPHILS RELATIVE PERCENT 83 % (BEAKER) (test code = 429) LYMPHOCYTES RELATIVE PERCENT 10 % (BEAKER) (test code = 430) MONOCYTES RELATIVE PERCENT 6 % (BEAKER) (test code = 431) EOSINOPHILS RELATIVE PERCENT 0 % (BEAKER) (test code = 432) BASOPHILS RELATIVE PERCENT 0 % (BEAKER) (test code = 437) NEUTROPHILS ABSOLUTE COUNT 4.15 K/ L 1.56-6.13 (BEAKER) (test code = 670) LYMPHOCYTES ABSOLUTE COUNT 0.48 K/ L 1.18-3.74 L (BEAKER) (test code = 414) MONOCYTES ABSOLUTE COUNT (BEAKER) 0.32 K/ L 0.24-0.36 (test code = 415) EOSINOPHILS ABSOLUTE COUNT 0.00 K/ L 0.04-0.36 L (BEAKER) (test code = 416) BASOPHILS ABSOLUTE COUNT (BEAKER) 0.01 K/ L 0.01-0.08 (test code = 417) IMMATURE GRANULOCYTES-RELATIVE 1 % 0-1 PERCENT (BEAKER) (test code = 2801) Urinalysis w/Microscopic + Reflex to [id number] 00:18:00 Test Item Value Reference Range Interpretation Comments Color, UA (test code = Yellow 5778-6) Clarity, UA (test code = Clear 5767-9) Specific [place], UA 1.015 1.001-1.035 (test code = 5811-5) pH, UA (test code = 7.0 5.0-8.0 5803-2) Protein, UA (test code = Negative Negative 67508-4) Glucose, UA (test code = Negative Negative 365) Ketones, UA (test code = Negative Negative 2514-8) Bilirubin, UA (test code Negative Negative = 97246-8) Blood, UA (test code = Negative Negative 96175-3) Nitrite, UA (test code = Negative Negative 5802-4) Leukocytes, UA (test code Moderate Negative A = 5799-2) Urobilinogen, UA (test 6.0 mg/dL 0.2-1 H code = 29899-3) RBC, UA (test code = <1 /HPF 15731-0) WBC, UA (test code = 14 /HPF 5821-4) Bacteria, UA (test code = Occasional 18942-5) Squam Epithel, UA (test 5 /HPF code = 70038-7) Specimen Source (test code = 2795) VIKKI (test code = VIKKI) Reporting Developer ID - [auto]Reporting Developer ID - ann Lab Interpretation (test Abnormal code = 42766-5) [facility] URINE [id number] 00:18:00 Test Item Value Reference Range Interpretation Comments COLOR (BEAKER) (test code = 470) Yellow CLARITY (BEAKER) (test code = 469) Clear SPECIFIC GRAVITY UA (BEAKER) (test 1.015 1.001-1.035 code = 468) PH UA (BEAKER) (test code = 467) 7.0 5.0-8.0 PROTEIN UA (BEAKER) (test code = Negative Negative 464) GLUCOSE UA (BEAKER) (test code = Negative Negative 365) KETONES UA (BEAKER) (test code = Negative Negative 371) BILIRUBIN UA (BEAKER) (test code = Negative Negative 462) BLOOD UA (BEAKER) (test code = Negative Negative 461) NITRITE UA (BEAKER) (test code = Negative Negative 465) LEUKOCYTE ESTERASE UA (BEAKER) Moderate Negative A (test code = 466) UROBILINOGEN UA (BEAKER) (test 6.0 mg/dL 0.2-1.0 H code = 463) RBC UA (BEAKER) (test code = 519) < /HPF WBC UA (BEAKER) (test code = 520) 14 /HPF BACTERIA (BEAKER) (test code = Occasional 517) SQUAMOUS EPITHELIAL (BEAKER) (test 5 /HPF code = 516) SOURCE(BEAKER) (test code = 2795) Reporting Developer ID - [auto]Reporting Developer ID - hankPOCT-GLUCOSE [id number] 23:31:00 Test Item Value Reference Range Interpretation Comments POC-GLUCOSE METER 137 mg/dL 70-110 H : TESTED A T [facility] [address] (BEAKER) (test code = [place] [facility], 1538) [address]: Reporting Developer/Techni janel ID = [id number] for CH UA, HENRISON [id number] 19:18:00 Test Item Value Reference Range Interpretation Comments Magnesium (test code = 1.6 mg/dL 1.6-2.6 41137-8) VIKKI (test code = VIKKI) Reporting Developer ID - DB Lab Interpretation (test Normal code = 72023-2) [facility] Hospital[facility]osph[facility]2020-[facility] 19:18:00 Test Item Value Reference Range Interpretation Comments Phosphorus (test code = 2.9 mg/dL 2.3-4.7 2777-1) VIKKI (test code = VIKKI) Reporting Developer ID - DB Lab Interpretation (test Normal code = 74734-3) [facility]OS[facility]US2020-05-29 19:18:00 Test Item Value Reference Range Interpretation Comments PHOSPHORUS (BEAKER) (test code = 2.9 mg/dL 2.3-4.7 604) Reporting Developer ID - [id number] 19:18:00 Test Item Value Reference Range Interpretation Comments MAGNESIUM (BEAKER) (test code = 1.6 mg/dL 1.6-2.6 627) Reporting Developer ID - DBBASIC METABOLIC [id number] 19:18:00 Test Item Value Reference Range Interpretation Comments SODIUM (BEAKER) 136 meq/L 136-145 (test code = 381) POTASSIUM (BEAKER) 3.4 meq/L 3.5-5.1 L (test code = 379) CHLORIDE (BEAKER) 104 meq/L 98-107 (test code = 382) CO2 (BEAKER) (test 21 meq/L 22-29 L code = 355) BLOOD UREA NITROGEN 8 mg/dL 7-21 (BEAKER) (test code = 354) CREATININE (BEAKER) 0.87 mg/dL 0.57-1.25 (test code = 358) GLUCOSE RANDOM 215 mg/dL 70-105 H (BEAKER) (test code = 652) CALCIUM (BEAKER) 9.8 mg/dL 8.4-10.2 (test code = 697) EGFR (BEAKER) (test 68 mL/min/1.73 ESTIMA JASSI GFR IS code = 1092) sq m NOT ACCURATE CREATININE CLEARANCE IN PREDICTING GLOMERULAR FILTRATION RATE . ESTIMATED GFR I S NOT APPLICABLE FOR DIALYSIS PATIEN TS. Reporting Developer ID - [id number] 19:09:00 Test Item Value Reference Range Interpretation Comments D-Dimer, Quant (test code 0.89 <0.50 MG/L FEU H = 55143-1) VIKKI (test code = VIKKI) Intended Use: The D-Dimer Assay can be used to aid in the diagnosis of Deep Vein Thrombosis (DVT) and Pulmonary Embolism Disease (PED).In patients with low pre-test probability, various studies concerning STA Liatest D-dimer test have reported that with a cutoff value of 0.50 MG/L FEU, the Negative Predictive Value (NPV) regarding the exclusion of thrombosis is within 95-100% range. Lab Interpretation (test Abnormal code = 02495-3) [facility]Symptomatic ONLY)2020-04-05 19:09:00 Test Item Value Reference Range Interpretation Comments SARS-COV2/RT-PCR Not Detected Not Detected, (test code = Negative 63370-7) SARS-COV-2 [facility] PERFORMING LAB (test code = 25265-9) VIKKI (test code = Negative results do not VIKKI) preclude SARS-CoV-2 infection and should not be used as [...] of the Act. Fact Sheet for Healthcare Providers:https://www.Genomas/Documents/Xper t%20Xpress%20SARS%20CoV- 2/Fact%20Sheets/302-3802 %56XWCT-CSJ-1%20HEALTHCA RE%20PROVIDERS%20FACT%20 SHEET.pdf Fact Sheet for Healthcare Patients:https://www.[employer]/Documents/Xpert %20Xpress%20SARS%20CoV-2 /Fact%20Sheets/3023801% 52RHLD-VOM-1%20PATIENT%2 0FACT%20SHEET.pdf Performing Laboratory:[facility] [place] [address] [facility]-[id number] 19:09:00 Test Item Value Reference Range Interpretation Comments D-DIMER QUANTITATIVE (BEAKER) 0.89 MG/L FEU <0.50 H (test code = 671) Intended Use: The D-Dimer Assay can be used to aid in the diagnosis of Deep Vein Thrombosis (DVT) and Pulmonary Embolism Disease (PED).In patients with low pre- test probability, various studies concerning STA Liatest D-dimer test have reported that with a cutoff value of 0.50 MG/L FEU, the Negative Predictive Value (NPV) regarding the exclusion of thrombosis is within 95-100% range. SARS-COV2/RT-PCR ([facility])2020-04-05 19:09:00 Test Item Value Reference Range Interpretation Comments SARS-COV2/RT-PCR (test Not Detected Not Detected, Negative code = 0689625) SARS-COV-2 PERFORMING LAB [facility] (test code = 4370682) Negative results do not preclude SARS-CoV-2 infection and should not be used as the sole basis for patient management decisions. Negative results must be combined with clinical observations, patient history, and epidemiological information. A false negative result may occur if a specimen is improperly collected, transported or handled.The limit of detection for this assay is 250 copies/mL.This SARS CoV-2 test is a rapid, real-time RT-PCR test intended for the qualitative detection of nucleic acid from SARS-CoV-2 in a nasopharyngeal swab specimen collected from individuals suspected of COVID-19 by their healthcare provider.This test has not been Food and Drug [...] is revoked under Section 564(g) of the Act.Fact Sheet for Healthcare Pro viders:https://www.[employer]/Documents/Xpert%20Xpress%20SARS%20CoV-2/Fact%20Sh eets/302-3802%36SEDN-ZDZ-4%20HEALTHCARE%20PROVIDERS%20FACT%20SHEET.pdfFact Sheet for Healthcare Patients:https://www.[employer]/Documents/Xpert%20Xpress%20SARS%20CoV-2/Fact%20Sheets/302-3801%20SARS-COV -2%20PATIENT%20FACT%20SHEET.pdfPerforming Laboratory:[facility], [place] [address]NFD W/PLT COUNT & AUTO DIFFERENTIAL 2020-04-05 19:01:00 Test Item Value Reference Range Interpretation Comments WHITE BLOOD CELL COUNT (BEAKER) 5.2 K/ L 3.5-10.5 (test code = 775) RED BLOOD CELL COUNT (BEAKER) 4.24 M/ L 3.93-5.22 (test code = 761) HEMOGLOBIN (BEAKER) (test code = 12.3 GM/DL 11.2-15.7 410) HEMATOCRIT (BEAKER) (test code = 38.6 % 34.1-44.9 411) MEAN CORPUSCULAR VOLUME (BEAKER) 91.0 fL 79.4-94.8 (test code = 753) MEAN CORPUSCULAR HEMOGLOBIN 29.0 pg 25.6-32.2 (BEAKER) (test code = 751) MEAN CORPUSCULAR HEMOGLOBIN CONC 31.9 GM/DL 32.2-35.5 L (BEAKER) (test code = 752) RED CELL DISTRIBUTION WIDTH 13.7 % 11.7-14.4 (BEAKER) (test code = 412) PLATELET COUNT (BEAKER) (test code 68 K/CU MM 150-450 L = 756) MEAN PLATELET VOLUME (BEAKER) 11.6 fL 9.4-12.3 (test code = 754) NUCLEATED RED BLOOD CELLS (BEAKER) 0 /100 WBC 0-0 (test code = 413) NEUTROPHILS RELATIVE PERCENT 81 % (BEAKER) (test code = 429) LYMPHOCYTES RELATIVE PERCENT 14 % (BEAKER) (test code = 430) MONOCYTES RELATIVE PERCENT 4 % (BEAKER) (test code = 431) EOSINOPHILS RELATIVE PERCENT 0 % (BEAKER) (test code = 432) BASOPHILS RELATIVE PERCENT 0 % (BEAKER) (test code = 437) NEUTROPHILS ABSOLUTE COUNT 4.21 K/ L 1.56-6.13 (BEAKER) (test code = 670) LYMPHOCYTES ABSOLUTE COUNT 0.74 K/ L 1.18-3.74 L (BEAKER) (test code = 414) MONOCYTES ABSOLUTE COUNT (BEAKER) 0.21 K/ L 0.24-0.36 L (test code = 415) EOSINOPHILS ABSOLUTE COUNT 0.01 K/ L 0.04-0.36 L (BEAKER) (test code = 416) BASOPHILS ABSOLUTE COUNT (BEAKER) 0.01 K/ L 0.01-0.08 (test code = 417) IMMATURE GRANULOCYTES-RELATIVE 0 % 0-1 PERCENT (BEAKER) (test code = 2801) RAD, CHEST, 1 VIEW, NON [id number] 17:16:00Reason for exam:->sob, feverShould this be performed at the bedside?->YesFINAL REPORT TECHNIQUE: Frontal chest radiograph dated 04/05/2020. CLINICAL HISTORY: SOB, Fever COMPARISON STUDY: Chest radiograph dated 04/01/2020 IMPRESSION:Endotracheal and enteric tubes have been removed. Lungs are clear. No pleural effusion or pneumothorax. Cardiomediastinalsilhouette is normal in size. No pulmonary edema. No fracture. Signed: Douglas Hale MDReport V erified Date/Time: 04/05/2020 17:16:45 Reading Location: [address] Transitional Reading Room XR chest 1 view portable / [id number] 17:16:00 Interface, External Ris In - 04/05/2020 5:18 PM CDTFINAL REPORT TECHNIQUE: Frontal chest radiograph dated 04/05/2020. CLINICAL HISTORY: SOB, Fever COMPARISON STUDY: Chest radiograph dated 04/01/2020 IMPRESSION:Endotracheal and enteric tubes have been removed. Lungs are clear. No pleural effusion or pneumothorax. Cardiomediastinal silhouette is normal in size. No pulmonary edema. No fracture. Signed: Douglas Haleeport Verified Date/Time: 04/05/2020 17:16:45 Reading Location: [address] Transitional [facility] [place] [id number] 17:04:00 Test Item Value Reference Range Interpretation Comments POC-GLUCOSE METER 128 mg/dL 70-110 H : TESTED A T [facility] [address] (BEAKER) (test code = A[facility] [place] [facility], 1538) [address]: Reporting Developer/Techni janel ID = [id number] for JOE BINGHAM Lactic acid, [id number] 16:47:00 Test Item Value Reference Range Interpretation Comments Lactate, Venous (test code = 1.24 mmol/L 0.5-2.2 2871) VIKKI (test code = VIKKI) Reporting Developer ID - DB Lab Interpretation (test Normal code = 68129-4) [facility] HospitalLACT[facility], [id number] 16:47:00 Test Item Value Reference Range Interpretation Comments LACTATE BLOOD VENOUS (2) ([facility]) 1.24 mmol/L 0.50-2.20 (test code = 2872) Reporting Developer ID - DBPOCT-GLUCOSE [id number] 11:33:00 Test Item Value Reference Range Interpretation Comments POC-GLUCOSE METER 92 mg/dL 70-110 : TESTED A T [facility] [address] (EyeEm) (test code = [facility], 153) [address]: Reporting Developer/Techni janel ID = [id number] for RODGeorge ERS, JAMECA POCT-GLUCOSE [id number] 08:34:00 Test Item Value Reference Range Interpretation Comments POC-GLUCOSE METER 136 mg/dL 70-110 H : TESTED A T [facility] 6720 (BEMimeo) (test code = [facility], 153) 76653: Reporting Developer/Techni janel ID = [id number] for RO DGERS, JAMECA POCT-GLUCOSE [id number] 21:09:00 Test Item Value Reference Range Interpretation Comments POC-GLUCOSE METER 93 mg/dL 70-110 : TESTED A T [facility] 6720 ([facility]) (test code = [facility], 153) 61448: Reporting Developer/Techni janel ID = [id number] for DILCIA Z, NADINA POCT-GLUCOSE [id number] 18:02:00 Test Item Value Reference Range Interpretation Comments POC-GLUCOSE METER 84 mg/dL 70-110 : TESTED A T [facility] [address] (EyeEm) (test code = [facility], 153) 387[address]: Reporting Developer/Techni janel ID = [id number] for BROW N, DARYA Hepatic function [id number] 16:01:00 Test Item Value Reference Range Interpretation Comments Protein, Total (test code = 7.4 6.0- 8.3 gm/dL 2885-2) Albumin (test code = 3.8 g/dL 3.5-5 67417-5) Total Bilirubin (test code 1.4 mg/dL 0.2-1.2 H = 1974-2) Bilirubin, Direct (test 0.7 mg/dL 0.1-0.5 H code = 1967-7) Alkaline Phosphatase (test 102 U/L 40-150 code = 6768-6) AST (test code = 1920-8) 67 U/L 5-34 H ALT (test code = 1742-6) 40 U/L 6-55 VIKKI (test code = VIKKI) Reporting Developer ID - [id number] Lab Interpretation (test Abnormal code = 54202-9) [facility] Hospital[facility]AT[facility] [id number] 16:01:00 Test Item Value Reference Range Interpretation Comments TOTAL PROTEIN (BEAKER) (test code = 7.4 gm/dL 6.0-8.3 770) ALBUMIN (BEAKER) (test code = 1145) 3.8 g/dL 3.5-5.0 BILIRUBIN TOTAL (BEAKER) (test code 1.4 mg/dL 0.2-1.2 H = 377) BILIRUBIN DIRECT (BEAKER) (test 0.7 mg/dL 0.1-0.5 H code = 706) ALKALINE PHOSPHATASE (BEAKER) (test 102 U/L 40-150 code = 346) AST (SGOT) (BEAKER) (test code = 67 U/L 5-34 H 353) ALT (SGPT) (BEAKER) (test code = 40 U/L 6-55 347) Reporting Developer ID - NTPCBC W/PLT COUNT & AUTO [id number] 15:40:00 Test Item Value Reference Range Interpretation Comments WHITE BLOOD CELL COUNT (BEAKER) 6.7 K/ L 3.5-10.5 (test code = 775) RED BLOOD CELL COUNT (BEAKER) 4.14 M/ L 3.93-5.22 (test code = 761) HEMOGLOBIN (BEAKER) (test code = 12.2 GM/DL 11.2-15.7 410) HEMATOCRIT (BEAKER) (test code = 37.4 % 34.1-44.9 411) MEAN CORPUSCULAR VOLUME (BEAKER) 90.3 fL 79.4-94.8 (test code = 753) MEAN CORPUSCULAR HEMOGLOBIN 29.5 pg 25.6-32.2 (BEAKER) (test code = 751) MEAN CORPUSCULAR HEMOGLOBIN CONC 32.6 GM/DL 32.2-35.5 (BEAKER) (test code = 752) RED CELL DISTRIBUTION WIDTH 14.0 % 11.7-14.4 (BEAKER) (test code = 412) PLATELET COUNT (BEAKER) (test code 76 K/CU MM 150-450 L = 756) MEAN PLATELET VOLUME (BEAKER) 12.1 fL 9.4-12.3 (test code = 754) NUCLEATED RED BLOOD CELLS (BEAKER) 0 /100 WBC 0-0 (test code = 413) NEUTROPHILS RELATIVE PERCENT 70 % (BEAKER) (test code = 429) LYMPHOCYTES RELATIVE PERCENT 21 % (BEAKER) (test code = 430) MONOCYTES RELATIVE PERCENT 7 % (BEAKER) (test code = 431) EOSINOPHILS RELATIVE PERCENT 1 % (BEAKER) (test code = 432) BASOPHILS RELATIVE PERCENT 0 % (BEAKER) (test code = 437) NEUTROPHILS ABSOLUTE COUNT 4.71 K/ L 1.56-6.13 (BEAKER) (test code = 670) LYMPHOCYTES ABSOLUTE COUNT 1.43 K/ L 1.18-3.74 (BEAKER) (test code = 414) MONOCYTES ABSOLUTE COUNT (BEAKER) 0.46 K/ L 0.24-0.36 H (test code = 415) EOSINOPHILS ABSOLUTE COUNT 0.08 K/ L 0.04-0.36 (BEAKER) (test code = 416) BASOPHILS ABSOLUTE COUNT (BEAKER) 0.02 K/ L 0.01-0.08 (test code = 417) IMMATURE GRANULOCYTES-RELATIVE 0 % 0-1 PERCENT (BEAKER) (test code = 2801) POCT-GLUCOSE [id number] 11:53:00 Test Item Value Reference Range Interpretation Comments POC-GLUCOSE METER 94 mg/dL 70-110 : TESTED A T [facility] 6720 (BEAKER) (test code = [facility], 153) 40744: Reporting Developer/Techni janel ID = [id number] for BROW N, DARYA POCT-GLUCOSE [id number] 09:06:00 Test Item Value Reference Range Interpretation Comments POC-GLUCOSE METER 114 mg/dL 70-110 H : TESTED A T [facility] [address] (BEAKER) (test code = [facility], 153) 57545: Reporting Developer/Techni janel ID = [id number] for BR OWN, DARYA [id number] 06:19:00 Test Item Value Reference Range Interpretation Comments PHOSPHORUS (BEAKER) (test code = 3.8 mg/dL 2.3-4.7 604) Reporting Developer ID - ZAHRA [id number] 06:19:00 Test Item Value Reference Range Interpretation Comments MAGNESIUM (BEAKER) (test code = 1.8 mg/dL 1.6-2.6 627) Reporting Developer ID - ZAHRA MBASIC METABOLIC [id number] 06:19:00 Test Item Value Reference Range Interpretation Comments SODIUM (BEAKER) 144 meq/L 136-145 (test code = 381) POTASSIUM (BEAKER) 3.7 meq/L 3.5-5.1 (test code = 379) CHLORIDE (BEAKER) 111 meq/L 98-107 H (test code = 382) CO2 (BEAKER) (test 27 meq/L 22-29 code = 355) BLOOD UREA NITROGEN 9 mg/dL 7-21 (BEAKER) (test code = 354) CREATININE (BEAKER) 0.72 mg/dL 0.57-1.25 (test code = 358) GLUCOSE RANDOM 115 mg/dL 70-105 H (BEAKER) (test code = 652) CALCIUM (BEAKER) 9.5 mg/dL 8.4-10.2 (test code = 697) EGFR (BEAKER) (test 84 mL/min/1.73 ESTIMA JASSI GFR IS code = 1092) sq m NOT ACCURATE CREATININE CLEARANCE IN PREDICTING GLOMERULAR FILTRATION RATE . ESTIMATED GFR I S NOT APPLICABLE FOR DIALYSIS PATIEN TS. Reporting Developer ID - ZAHRA MCBC W/PLT COUNT & AUTO [id number] 05:56:00 Test Item Value Reference Range Interpretation Comments WHITE BLOOD CELL COUNT (BEAKER) 4.6 K/ L 3.5-10.5 (test code = 775) RED BLOOD CELL COUNT (BEAKER) 4.35 M/ L 3.93-5.22 (test code = 761) HEMOGLOBIN (BEAKER) (test code = 13.0 GM/DL 11.2-15.7 410) HEMATOCRIT (BEAKER) (test code = 39.7 % 34.1-44.9 411) MEAN CORPUSCULAR VOLUME (BEAKER) 91.3 fL 79.4-94.8 (test code = 753) MEAN CORPUSCULAR HEMOGLOBIN 29.9 pg 25.6-32.2 (BEAKER) (test code = 751) MEAN CORPUSCULAR HEMOGLOBIN CONC 32.7 GM/DL 32.2-35.5 (BEAKER) (test code = 752) RED CELL DISTRIBUTION WIDTH 14.1 % 11.7-14.4 (BEAKER) (test code = 412) PLATELET COUNT (BEAKER) (test code 75 K/CU MM 150-450 L = 756) MEAN PLATELET VOLUME (BEAKER) 12.2 fL 9.4-12.3 (test code = 754) NUCLEATED RED BLOOD CELLS (BEAKER) 0 /100 WBC 0-0 (test code = 413) NEUTROPHILS RELATIVE PERCENT 68 % (BEAKER) (test code = 429) LYMPHOCYTES RELATIVE PERCENT 22 % (BEAKER) (test code = 430) MONOCYTES RELATIVE PERCENT 7 % (BEAKER) (test code = 431) EOSINOPHILS RELATIVE PERCENT 2 % (BEAKER) (test code = 432) BASOPHILS RELATIVE PERCENT 1 % (BEAKER) (test code = 437) NEUTROPHILS ABSOLUTE COUNT 3.12 K/ L 1.56-6.13 (BEAKER) (test code = 670) LYMPHOCYTES ABSOLUTE COUNT 1.00 K/ L 1.18-3.74 L (BEAKER) (test code = 414) MONOCYTES ABSOLUTE COUNT (BEAKER) 0.32 K/ L 0.24-0.36 (test code = 415) EOSINOPHILS ABSOLUTE COUNT 0.11 K/ L 0.04-0.36 (BEAKER) (test code = 416) BASOPHILS ABSOLUTE COUNT (BEAKER) 0.03 K/ L 0.01-0.08 (test code = 417) IMMATURE GRANULOCYTES-RELATIVE 0 % 0-1 PERCENT (BEAKER) (test code = 2801) POCT-GLUCOSE [id number] 22:05:00 Test Item Value Reference Range Interpretation Comments POC-GLUCOSE METER 110 mg/dL 70-110 : TESTED A T [facility] 6720 (BEAKER) (test code = [facility], 153) 70396: Reporting Developer/Techni janel ID = [id number] for MO JOSE C PAIGE POCT-GLUCOSE [id number] 18:00:00 Test Item Value Reference Range Interpretation Comments POC-GLUCOSE METER 127 mg/dL 70-110 H : TESTED A T [facility] 6720 (BEAKER) (test code = [facility] [employer] [facility], 153) 89221: Reporting Developer/Techni janel ID = [id number] for Sm calli, Elaina POCT-GLUCOSE [id number] 11:47:00 Test Item Value Reference Range Interpretation Comments POC-GLUCOSE METER 100 mg/dL 70-110 : TESTED A T [facility] [address] (CHANG) (test code = [place], 1538) [address]: Reporting Developer/Techni janel ID = [id number] for Sm Elaina mccurdy Hemoglobin [id number] 10:02:00 Test Item Value Reference Range Interpretation Comments Hemoglobin A1C (test code = 4548-4) 6.0 % 4.3-6.1 Lab Interpretation (test code = Normal 23612-4) [facility]HEMO[facility] [id number] 10:02:00 Test Item Value Reference Range Interpretation Comments HEMOGLOBIN A1C (CHANG) (test code = 6.0 % 4.3-6.1 368) POCT-GLUCOSE [id number] 07:38:00 Test Item Value Reference Range Interpretation Comments POC-GLUCOSE METER 115 mg/dL 70-110 H : TESTED A T [facility] [address] (CHANG) (test code = [facility] [place] [facility], 1538) 96[address]: Reporting Developer/Techni janel ID = [id number] for Sm Elaina mccurdy U/S, ABDOMINAL, [id number] 06:20:00Abdomen limited area? Add comment if clarification is needed.->Right upper quadrantReason for exam:->evaluate for cirrhosisShould this be performed at the bedside?->YesFINAL REPORT History: Evaluate for cirrhosis Abdominal ultrasound dated 04/03/2020 Comparison: None Comment: Real-time transabdominal ultrasound of the right upper quadrant abdomen was performed. Liver: 16.6 cm , normal. Coarsened parenchymal echogenicity with a subtle nodularcontour suggesting underlying cirrhosis. A 2.1 x 2.0 x 1.8 cm nodular focus in the right liver is noted. Gallbladder: No gallstones. No gallbladder wall thickening. No perocholecystic fluid.. No sonographic Rojas's sign. Biliary tree: No intrahepatic ductal dilatation. CBD: 4 mm. MPV: 8 mm Pancreas: Unremarkable. Right kidney: 10.3 x 4.6 x 5.0 cm. Normal echogenicity. No ascites is present in the abdomen. The visualized abdominal aorta is normal in caliber. The IVC and Hepatic veins are patent.Impression: Coarsened hepatic parenchymal echogenicity with a subtle nodular contour suggesting underlying cirrhosis. Subtle, 2.1 x 2.0 x 1.8 cm nodular focus in the inferior right liver could reflecta hepatic mass. Better characterization with liver protocol MRI is recommended. Signed: Leighton Walker MDReport Verified Date/Time: 04/03/2020 06:20:42 US abdomen [id number] 06:20:00Interface, External Ris In - 04/03/2020 6:23 AM CDTFINAL REPORT History: Evaluate for cirrhosis Abdominal ultrasound dated 04/03/2020 Comparison: None Comment: Real-time transabdominal ultrasound of the right upper quadrant abdomen was performed. Liver: 16.6 cm , normal. Coarsened parenchymal echogenicity with a subtle nodular contour suggesting underlying cirrhosis. A 2.1 x2.0 x 1.8 cm nodular focus in the right liver is noted. Gallbladder: No gallstones. No gallbladder wall thickening. No perocholecystic fluid.. No sonographic Rojas's sign. Biliary tree: No intrahepatic ductal dilatation. CBD: 4 mm. MPV: 8 mm Pancreas: Unremarkable. Right kidney: 10.3 x 4.6 x 5.0 cm. Normal echogenicity. No ascites is present in the abdomen. The visualized abdominal aorta is normal in caliber. The IVC and Hepatic veins are patent. Impression: Coarsened hepatic parenchymal echogenicity with a subtle nodular contour suggesting underlying cirrhosis. Subtle, 2.1 x 2.0 x 1.8 cm nodular focus in the inferior right liver could reflect a hepatic mass. Better characterization with liver protocol MRI is recommended. Signed: Leighton Walker MDReport Verified Date/Time: 04/03/2020 06:20:42 [id number] 04:33:00 Test Item Value Reference Range Interpretation Comments PHOSPHORUS (BEAKER) (test code = 3.3 mg/dL 2.3-4.7 604) Reporting Developer ID - PIAYA [id number] 04:33:00 Test Item Value Reference Range Interpretation Comments MAGNESIUM (BEAKER) (test code = 1.8 mg/dL 1.6-2.6 627) Reporting Developer ID - PIAYA LBASIC METABOLIC [id number] 04:33:00 Test Item Value Reference Range Interpretation Comments SODIUM (BEAKER) 143 meq/L 136-145 (test code = 381) POTASSIUM (BEAKER) 3.6 meq/L 3.5-5.1 (test code = 379) CHLORIDE (BEAKER) 112 meq/L 98-107 H (test code = 382) CO2 (BEAKER) (test 27 meq/L 22-29 code = 355) BLOOD UREA NITROGEN 12 mg/dL 7-21 (BEAKER) (test code = 354) CREATININE (BEAKER) 0.70 mg/dL 0.57-1.25 (test code = 358) GLUCOSE RANDOM 103 mg/dL 70-105 (BEAKER) (test code = 652) CALCIUM (BEAKER) 8.8 mg/dL 8.4-10.2 (test code = 697) EGFR (BEAKER) (test 87 mL/min/1.73 ESTIMA JASSI GFR IS code = 1092) sq m NOT ACCURATE CREATININE CLEARANCE IN PREDICTING GLOMERULAR FILTRATION RATE . ESTIMATED GFR I S NOT APPLICABLE FOR DIALYSIS PATIEN TS. Reporting Developer ID - PIAYA LHEPATIC FUNCTION [id number] 04:33:00 Test Item Value Reference Range Interpretation Comments TOTAL PROTEIN (BEAKER) (test code = 6.7 gm/dL 6.0-8.3 770) ALBUMIN (BEAKER) (test code = 1145) 3.4 g/dL 3.5-5.0 L BILIRUBIN TOTAL (BEAKER) (test code 1.2 mg/dL 0.2-1.2 = 377) BILIRUBIN DIRECT (BEAKER) (test 0.6 mg/dL 0.1-0.5 H code = 706) ALKALINE PHOSPHATASE (BEAKER) (test 110 U/L 40-150 code = 346) AST (SGOT) (BEAKER) (test code = 45 U/L 5-34 H 353) ALT (SGPT) (BEAKER) (test code = 32 U/L 6-55 347) Reporting Developer ID - PIAYA LCBC W/PLT COUNT & AUTO [id number] 04:08:00 Test Item Value Reference Range Interpretation Comments WHITE BLOOD CELL COUNT (BEAKER) 5.4 K/ L 3.5-10.5 (test code = 775) RED BLOOD CELL COUNT (BEAKER) 3.93 M/ L 3.93-5.22 (test code = 761) HEMOGLOBIN (BEAKER) (test code = 11.8 GM/DL 11.2-15.7 410) HEMATOCRIT (BEAKER) (test code = 35.5 % 34.1-44.9 411) MEAN CORPUSCULAR VOLUME (BEAKER) 90.3 fL 79.4-94.8 (test code = 753) MEAN CORPUSCULAR HEMOGLOBIN 30.0 pg 25.6-32.2 (BEAKER) (test code = 751) MEAN CORPUSCULAR HEMOGLOBIN CONC 33.2 GM/DL 32.2-35.5 (BEAKER) (test code = 752) RED CELL DISTRIBUTION WIDTH 14.2 % 11.7-14.4 (BEAKER) (test code = 412) PLATELET COUNT (BEAKER) (test code 73 K/CU MM 150-450 L = 756) MEAN PLATELET VOLUME (BEAKER) 12.1 fL 9.4-12.3 (test code = 754) NUCLEATED RED BLOOD CELLS (BEAKER) 0 /100 WBC 0-0 (test code = 413) NEUTROPHILS RELATIVE PERCENT 62 % (BEAKER) (test code = 429) LYMPHOCYTES RELATIVE PERCENT 25 % (BEAKER) (test code = 430) MONOCYTES RELATIVE PERCENT 10 % (BEAKER) (test code = 431) EOSINOPHILS RELATIVE PERCENT 2 % (BEAKER) (test code = 432) BASOPHILS RELATIVE PERCENT 0 % (BEAKER) (test code = 437) NEUTROPHILS ABSOLUTE COUNT 3.37 K/ L 1.56-6.13 (BEAKER) (test code = 670) LYMPHOCYTES ABSOLUTE COUNT 1.35 K/ L 1.18-3.74 (BEAKER) (test code = 414) MONOCYTES ABSOLUTE COUNT (BEAKER) 0.55 K/ L 0.24-0.36 H (test code = 415) EOSINOPHILS ABSOLUTE COUNT 0.10 K/ L 0.04-0.36 (BEAKER) (test code = 416) BASOPHILS ABSOLUTE COUNT (BEAKER) 0.02 K/ L 0.01-0.08 (test code = 417) IMMATURE GRANULOCYTES-RELATIVE 0 % 0-1 PERCENT (BEAKER) (test code = 2801) POCT-GLUCOSE [id number] 21:20:00 Test Item Value Reference Range Interpretation Comments POC-GLUCOSE METER 144 mg/dL 70-110 H : Notified RN/MD: (CHANG) (test code = TESTED AT [facility] 6720 1538) [facility], [address]: Reporting Developer/Techni janel ID = [id number] for ZAYDA LANDON MR, BRAIN, WITHOUT [id number] 20:37:00FINAL REPORT MR, BRAIN, WITHOUT CONTRAST INDICATION: Neuro deficit, acute, per sistent or progressing TECHNIQUE: Multiplanar, multisequence MR imaging of the brain without intravenous contrast. COMPARISON: CT head 04/22/2016 FINDINGS: Intracranial: A few scattered foci of T2 prolongation within the periventricular and subcortical white matter are a nonspecific finding commonly attributed to chronic small vessel ischemic disease. No acute intracranial hemorrhage. No restricted diffusion to suggest acute infarct. No mass effect. No hydrocephalus. Visualized intracranial flow voids are of normal course and caliber. Sinuses: No evidence of sinusitis. Mastoids are clear. Orbits: Globes are intact. Calvarium \\T\\ scalp: Unremarkable. IMPRESSION:No acute intracranial abnormality. Signed: Parvin More Verified Date/Time: 04/02/2020 20:37:03 MR brain without IV [id number] 20:37:00Interface, External Ris In - 04/02/2020 8:39 PM CDTFINAL REPORT MR, BRAIN, WITHOUT CONTRAST INDICATION: Neuro deficit, acute, persistent or progressing TECHNIQUE: Multiplanar, multisequence MR imaging of the brain without intravenous contrast. COMPARISON: CT head 04/22/2016 FINDINGS: Intracranial: A few scattered foci of T2 prolongation within the periventricular and subcortical white matter are a nonspecific finding commonly attributed to chronic small vessel ischemic disease . No acute intracranial hemorrhage. No restricted diffusion to suggest acute infarct. No mass effect. No hydrocephalus. Visualized intracranial flow voids are of normal course and caliber. Sinuses: Noevidence of sinusitis. Mastoids are clear. Orbits: Globes are intact. Calvarium \\T\\ scalp: Unremarkable. IMPRESSION:No acute intracranial abnormality. Signed: Parvin More Verified Date/Time: 04/02/2020 20:37:03 [facility] [place] [id number] 17:29:00 Test Item Value Reference Range Interpretation Comments POC-GLUCOSE METER 131 mg/dL 70-110 H : TESTED A T [facility] 6720 (BEAKER) (test code = ALE[facility]ANDER [facility], 1538) [address]: Reporting Developer/Techni janel ID = [id number] for KATIE ZAMORA LITHIUM [id number] 16:31:00 Test Item Value Reference Range Interpretation Comments LITHIUM LEVEL (BEAKER) < mmol/L 0.8-1.2 L This test was performed (test code = 630) at:[facility] [place] [place] [facility] , [facility], [address] [place] [id number] Rapid drug screen, [id number] 13:58:00 Test Item Value Reference Range Interpretation Comments Barbiturate Screen Negative Negative (test code = 74072-5) Benzodiazepine Screen Positive Negative A (test code = 40809-8) Cocaine (Metab.) Negative Negative Screen (test code = 3397-7) Methadone Screen (test Negative Negative code = 37632-4) Opiate Screen (test Negative Negative code = 65795-6) Cannabinoid Screen Negative Negative (test code = 15246-1) Amph/Methamph Screen Negative Negative (test code = 09566-2) Phencyclidine Screen Negative Negative (test code = 89111-5) pH, UA (test code = 6.5 5.0-8.0 5803-2) VIKKI (test code = VIKKI) DRUG CUTOFF CONC.Cocaine 300 ng/mL Cannabinoid 50 ng/mLBenzodiazepine 200 ng/mLBarbiturate 200 ng/mLPhencyclidine 25 ng/mLOpiate 300 ng/mLMethadone 300 ng/mLAmphetamine/ 1000 ng/mL Methamphetamine This assay provides an unconfirmed qualitative test result for the clinical management of patients in emergency situations. Chain of custody not maintained. Some altz-yms-thvxnis medications, as well as adulterants, may cause inaccurate results. Clinical correlation should be applied. A more comprehensive drug screen or confirmation of a detected drug may be performed upon request.Reporting Developer ID - ADMIN Lab Interpretation Abnormal (test code = 68186-0) [facility], [id number] 13:58:00 Test Item Value Reference Range Interpretation Comments BARBITURATE URINE (BEAKER) (test Negative Negative code = 725) BENZODIAZEPINE SCREEN URINE (BEAKER) Positive Negative A (test code = 726) COCAINE (METAB.) SCREEN (BEAKER) Negative Negative (test code = 1164) METHADONE SCREEN (BEAKER) (test code Negative Negative = 1436) OPIATE SCREEN URINE (BEAKER) (test Negative Negative code = 734) CANNABINOID SCREEN URINE (BEAKER) Negative Negative (test code = 727) AMPH/METHAMPH SCREEN (BEAKER) (test Negative Negative code = 1438) PHENCYCLIDINE SCREEN URINE (BEAKER) Negative Negative (test code = 608) PH UA (BEAKER) (test code = 467) 6.5 5.0-8.0 DRUG CUTOFF CONC.Cocaine 300 ng/mL Cannabinoid 50 ng/mLBenzodiazepine 200 ng/mLBarbiturate 200 ng/mLPhencyclidine 25 ng/mLOpiate 300 ng/mLMethadone 300 ng/mLAmphetamine/ 1000 ng/mL MethamphetamineThis assay provides an unconfirmed qualitative test result for the clinical management of patients in emergency situations. Chain of custody not maintained. Some dreh-qso-ezddspn medications, as well as adulterants, may cause inaccurate results. Clinical correlation should be applied. A more comprehensivedrug screen or confirmation of a detected drug may be performed upon request.Reporting Developer ID - ADMINEEG W VID [id number] HR CONTINUOUS MONITORING (VEEG)2020-04-02 13:28:00Reason for exam:- >SEIZURES Should this be performed at the bedside?->YesDate of EE04/01/2020 to 04/02/2020 DATE OF REPORT: 04/02/2020 ACC: [id number] EEG Number: [id number] Start time: 04/01/2020 @ 14:41 PM Stop time: 04/02/2020 @ 11:30 AM ICD-10: R56.9 CPT Code: 98858 HISTORY: 54 y.o. Female with ADHD, bipolar disorder, breast cancer, and hepatitis who was transferred due to concern for seizures requiring intubation. MEDICATIONS: No anti-seizure medic ations. TECHNICAL SUMMARY: This is a digital video-EEG recorded with 32 input channels reviewed with bipolar and referential montages using the modified Entrec system nomenclature. DESCRIPTION OF RECORD: During the maximally alert state an 8.5-9.5 Hz posterior dominant rhythm was seen that was symmetric, reactive to eye opening and well regulated. More anteriorly, low voltage frontocentral beta predominated. Drowsiness was characterized by decreased eye blinks, alpha attenuation andincreased frontocentral theta, vertex sharp transients. Stage 2 sleep was reached characterized by symmetric sleep spindles and K-complexes. SIGNIFICANT VIDEO EVENTS: None SIGNIFICANT ELECTROCARDIOGRAM EVENTS: Tachycardia HV: Hyperventilation was not performed. PHOTIC STIMULATION: Photic stimulation was not performed. IMPRESSION: Normal Awake and Sleep EEG CLINICAL CORRELATION: An EEG without epileptiform discharges does not exclude the possibility of epilepsy. If the clinical estephanie picion of epilepsy remains, consider additional EEG recordings. Avtar Parker MD Neurophysiology Fellow I have reviewed the electroencephalogram and this report and agree with its interpretation. Elvie Mckay MD Epilepsy Attending EEG 12-26 HR Continuous Monitoring with [id number] 13:28:00 Interface, External Ris In - 04/02/2020 1:28 PM CDTDate of EE04/01/2020 to 04/02/2020 DATE OF REPORT: 04/02/2020 ACC: [id number] EEG Number: [id number] Start time: 04/01/2020 @ 14:41 PM Stop time: 04/02/2020 @ 11:30 AM ICD-10: R56.9 CPT Code: 51591 HISTORY: 54 y.o. Female with ADHD, bipolar disorder, breast cancer, and hepatitis who was transferred due to concern for seizures requiring intubation. MEDICATIONS: No anti-seizure medications. TECHNICAL SUMMARY: This is a digitalvideo-EEG recorded with 32 input channels reviewed with bipolar and referential montages using the modified combinatorial system nomenclature. DESCRIPTION OF RECORD: During the maximally alert state an 8.5-9.5 Hz posterior dominant rhythm was seen that was symmetric, reactive to eye opening and well regulated. More anteriorly, low voltage frontocentral beta predominated. Drowsiness was characterized by decreased eye blinks, alpha attenuation and increased frontocentral theta, vertex sharp transients. Stage 2 sleep was reached characterized by symmetric sleep spindles and K-complexes. SIGNIFICANT VIDEO EVENTS: None SIGNIFICANT ELECTROCARDIOGRAM EVENTS: Tachycardia HV: Hyperventilation was not performed. PHOTIC STIMULATION: Photic stimulation was not performed. IMPRESSION: Normal Awake and Sleep EEG CLINICAL CORRELATION: An EEG without epileptiform discharges does not exclude the possibility of epilepsy. If the clinical suspicion of epilepsy remains, consider additional EEG recordings. Avtar Parker MD Neurophysiology Fellow I have reviewed the electroencephalogram and this report and agree with its interpretation. Elvie Mckay MD Epilepsy Attending E lectronically signed by: ELVIE MCKAY MD on 04/02/2020 01:28 [facility]2020-05-26 12:55:00 Test Item Value Reference Range Interpretation Comments Ammonia (test code = 60 18- 72 mol/L 90467-1) VIKKI (test code = VIKKI) Reporting Developer ID - ABILIO E Lab Interpretation (test Normal code = 80758-9) [facility]2020-05-26 12:55:00 Test Item Value Reference Range Interpretation Comments AMMONIA (BEAKER) (test code = 348) 60 mol/L 18-72 Reporting Developer ID - ABILIO EPOCT-GLUCOSE [id number] 11:12:00 Test Item Value Reference Range Interpretation Comments POC-GLUCOSE METER 165 mg/dL 70-110 H : TESTED A T [facility] 6720 (BEAKER) (test code = mEgo [facility], 1538) 138[address]: Reporting Developer/Techni janel ID = [id number] for KATIE ZAMORA POCT-GLUCOSE [id number] 08:44:00 Test Item Value Reference Range Interpretation Comments POC-GLUCOSE METER 97 mg/dL 70-110 : TESTED A T [facility] 6720 (BEAKER) (test code = mEgo [facility], 1538) 919[address]: Reporting Developer/Techni janel ID = [id number] for HARIS FUCHS BASIC METABOLIC [id number] 05:35:00 Test Item Value Reference Range Interpretation Comments SODIUM (BEAKER) 142 meq/L 136-145 (test code = 381) POTASSIUM (BEAKER) 3.5 meq/L 3.5-5.1 Specimen moderately (test code = 379) hemolyzed CHLORIDE (BEAKER) 113 meq/L 98-107 H (test code = 382) CO2 (BEAKER) (test 24 meq/L 22-29 code = 355) BLOOD UREA NITROGEN 10 mg/dL 7-21 (BEAKER) (test code = 354) CREATININE (BEAKER) 0.70 mg/dL 0.57-1.25 Specimen moderately (test code = 358) hemolyzed GLUCOSE RANDOM 105 mg/dL 70-105 (BEAKER) (test code = 652) CALCIUM (BEAKER) 9.0 mg/dL 8.4-10.2 (test code = 697) EGFR (BEAKER) (test 87 mL/min/1.73 ESTIMA JASSI GFR IS code = 1092) sq m NOT ACCURATE CREATININE CLEARANCE IN PREDICTING GLOMERULAR FILTRATION RATE . ESTIMATED GFR I S NOT APPLICABLE FOR DIALYSIS PATIEN TS. Reporting Developer ID - LACBC W/PLT COUNT & AUTO [id number] 05:04:00 Test Item Value Reference Range Interpretation Comments WHITE BLOOD CELL COUNT (BEAKER) 8.8 K/ L 3.5-10.5 (test code = 775) RED BLOOD CELL COUNT (BEAKER) 4.42 M/ L 3.93-5.22 (test code = 761) HEMOGLOBIN (BEAKER) (test code = 12.6 GM/DL 11.2-15.7 410) HEMATOCRIT (BEAKER) (test code = 39.3 % 34.1-44.9 411) MEAN CORPUSCULAR VOLUME (BEAKER) 88.9 fL 79.4-94.8 (test code = 753) MEAN CORPUSCULAR HEMOGLOBIN 28.5 pg 25.6-32.2 (BEAKER) (test code = 751) MEAN CORPUSCULAR HEMOGLOBIN CONC 32.1 GM/DL 32.2-35.5 L (BEAKER) (test code = 752) RED CELL DISTRIBUTION WIDTH 14.2 % 11.7-14.4 (BEAKER) (test code = 412) PLATELET COUNT (BEAKER) (test code 78 K/CU MM 150-450 L = 756) MEAN PLATELET VOLUME (BEAKER) 11.9 fL 9.4-12.3 (test code = 754) NUCLEATED RED BLOOD CELLS (BEAKER) 0 /100 WBC 0-0 (test code = 413) NEUTROPHILS RELATIVE PERCENT 73 % (BEAKER) (test code = 429) LYMPHOCYTES RELATIVE PERCENT 19 % (BEAKER) (test code = 430) MONOCYTES RELATIVE PERCENT 8 % (BEAKER) (test code = 431) EOSINOPHILS RELATIVE PERCENT 0 % (BEAKER) (test code = 432) BASOPHILS RELATIVE PERCENT 0 % (BEAKER) (test code = 437) NEUTROPHILS ABSOLUTE COUNT 6.42 K/ L 1.56-6.13 H (BEAKER) (test code = 670) LYMPHOCYTES ABSOLUTE COUNT 1.62 K/ L 1.18-3.74 (BEAKER) (test code = 414) MONOCYTES ABSOLUTE COUNT (BEAKER) 0.67 K/ L 0.24-0.36 H (test code = 415) EOSINOPHILS ABSOLUTE COUNT 0.03 K/ L 0.04-0.36 L (BEAKER) (test code = 416) BASOPHILS ABSOLUTE COUNT (BEAKER) 0.02 K/ L 0.01-0.08 (test code = 417) IMMATURE GRANULOCYTES-RELATIVE 0 % 0-1 PERCENT (BEAKER) (test code = 2801) POCT-GLUCOSE [id number] 02:05:00 Test Item Value Reference Range Interpretation Comments POC-GLUCOSE METER 116 mg/dL 70-110 H : TESTED A T [facility] 6720 (BEAKER) (test code = [facility] [employer] [facility], 153) 65603: Reporting Developer/Techni janel ID = [id number] for [facility] T4, [id number] 20:56:00 Test Item Value Reference Range Interpretation Comments Free T4 (test code = 1.19 ng/dL 0.7-1.48 3024-7) VIKKI (test code = VIKKI) Reporting Developer ID - NTP Lab Interpretation (test Normal code = 21844-7) [facility] Hospital[facility], [id number] 20:56:00 Test Item Value Reference Range Interpretation Comments FREE T4 (BEAKER) (test code = 655) 1.19 ng/dL 0.70-1.48 Reporting Developer ID - NTPPOCT-GLUCOSE [id number] 20:54:00 Test Item Value Reference Range Interpretation Comments POC-GLUCOSE METER 99 mg/dL 70-110 : TESTED A T [facility] 6720 (BEAKER) (test code = [facility], 1538) 31534: Reporting Developer/Techni janel ID = [id number] for DUNG DOWLING TSH/Free T4 If [id number] 20:18:00 Test Item Value Reference Range Interpretation Comments TSH (test code = 0.057 0.350- 4.940 uIU/mL L 98951-5) VIKKI (test code = VIKKI) Reporting Developer ID - NTP Lab Interpretation (test Abnormal code = 17157-8) [facility] HospitalTSH/FREE T4 IF [id number] 20:18:00 Test Item Value Reference Range Interpretation Comments THYROID STIMULATING HORMONE 0.057 uIU/mL 0.350-4.940 L (BEAKER) (test code = 772) Reporting Developer ID - NTPVitamin B12 and [id number] 20:07:00 Test Item Value Reference Range Interpretation Comments Vitamin B12 (test code = 929 pg/mL 213-816 H 2132-9) Folate (test code = 2284-8) 15.80 ng/mL >=7.00 VIKKI (test code = VIKKI) Reporting Developer ID - NTP Lab Interpretation (test Abnormal code = 98329-3) [facility] HospitalVITAMIN B12 AND [id number] 20:07:00 Test Item Value Reference Range Interpretation Comments VITAMIN B12 (BEAKER) (test code = 929 pg/mL 213-816 H 774) FOLATE (BEAKER) (test code = 362) 15.80 ng/mL >=7.00 Reporting Developer ID - NTPHEPATIC FUNCTION [id number] 19:32:00 Test Item Value Reference Range Interpretation Comments TOTAL PROTEIN (BEAKER) (test code = 8.0 gm/dL 6.0-8.3 770) ALBUMIN (BEAKER) (test code = 1145) 4.0 g/dL 3.5-5.0 BILIRUBIN TOTAL (BEAKER) (test code 1.8 mg/dL 0.2-1.2 H = 377) BILIRUBIN DIRECT (BEAKER) (test 0.9 mg/dL 0.1-0.5 H code = 706) ALKALINE PHOSPHATASE (BEAKER) (test 107 U/L 40-150 code = 346) AST (SGOT) (BEAKER) (test code = 30 U/L 5-34 353) ALT (SGPT) (BEAKER) (test code = 31 U/L 6-55 347) Reporting Developer ID - NTPPOCT-GLUCOSE [id number] 18:09:00 Test Item Value Reference Range Interpretation Comments POC-GLUCOSE METER 96 mg/dL 70-110 : TESTED A T [facility] 6720 (BEAKER) (test code = DESIREEWA Oni [facility], 1538) 57394: Reporting Developer/Techni janel ID = [id number] for SLY DUBOSE POCT-GLUCOSE [id number] 12:33:00 Test Item Value Reference Range Interpretation Comments POC-GLUCOSE METER 102 mg/dL 70-110 : TESTED A T [facility] 6720 (BEAKER) (test code = [facility], 1538) 20676: Reporting Developer/Techni janel ID = [id number] for JOSEPHINE HOOVER Troponin [id number] 07:53:00 Test Item Value Reference Range Interpretation Comments Troponin I (test code = 0.01 ng/mL 0-0.03 15850-3) VIKKI (test code = VIKKI) Troponin I (TnI) levels must be interpreted in the context of the presenting symptoms and the clinical findings. Elevated TnI levels indicate myocardial damage, but are not specific for ischemic heart disease. Elevated TnI levels are seen in patients with other cardiac conditions (including myocarditis and congestive heart failure), and slight TnI elevations occur in patients with other conditions, including sepsis, renal failure, acidosis, acute neurological disease, and persistent tachyarrhythmia.Opera tor ID - NTP Lab Interpretation (test Normal code = 21011-7) [facility] HospitalTROPONIN [id number] 07:53:00 Test Item Value Reference Range Interpretation Comments TROPONIN I (BEAKER) (test code = 0.01 ng/mL 0.00-0.03 397) Troponin I (TnI) levels must be interpreted in the context of the presenting symptoms and the clinical findings. Elevated TnI levels indicate myocardial damage, but are not specific for ischemic heart disease. Elevated TnI levels are seen in patients with other cardiac conditions (including myocarditis and congestive heart failure), and slight TnI elevations occur in patients with other conditions, including sepsis, renal failure, acidosis, acute neurological disease, and persistent tachyarrhythmia.Reporting Developer ID - NTPSARS-COV2/RT-PCR ([facility])2020-04-01 06:29:00 Test Item Value Reference Range Interpretation Comments SARS-COV2/RT-PCR (test Not Detected Not Detected, Negative code = 1214640) SARS-COV-2 PERFORMING LAB [facility] (test code = 2898511) Negative results do not preclude SARS-CoV-2 infection and should not be used as the sole basis for patient management decisions. Negative results must be combined with clinical observations, patient history, and epidemiological information. A false negative result may occur if a specimen is improperly collected, transported or handled.The limit of detection for this assay is 250 copies/mL.This SARS CoV-2 test is a rapid, real-time RT-PCR test intended for the qualitative detection of nucleic acid from SARS-CoV-2 in a nasopharyngeal swab specimen collected from individuals suspected of COVID-19 by their healthcare provider.This test has not been Food and Drug [...] is revoked under Section 564(g) of the Act.Fact Sheet for Healthcare Pro viders:https://www.[employer]/Documents/Xpert%20Xpress%20SARS%20CoV-2/Fact%20Sh eets/3023802%54EDVY-XER-9%20HEALTHCARE%20PROVIDERS%20FACT%20SHEET.pdfFact Sheet for Healthcare Patients:https://www.[employer]/Documents/Xpert%20Xpress%20SARS%20CoV-2/Fact%20Sheets/3023801%20SARS-COV -2%20PATIENT%20FACT%20SHEET.pdfPerforming Laboratory:[facility], [place] [address]KXN W/PLT COUNT & AUTO DIFFERENTIAL 2020-04-01 05:56:00 Test Item Value Reference Range Interpretation Comments WHITE BLOOD CELL COUNT (BEAKER) 12.3 K/ L 3.5-10.5 H (test code = 775) RED BLOOD CELL COUNT (BEAKER) 4.54 M/ L 3.93-5.22 (test code = 761) HEMOGLOBIN (BEAKER) (test code = 13.6 GM/DL 11.2-15.7 410) HEMATOCRIT (BEAKER) (test code = 41.8 % 34.1-44.9 411) MEAN CORPUSCULAR VOLUME (BEAKER) 92.1 fL 79.4-94.8 (test code = 753) MEAN CORPUSCULAR HEMOGLOBIN 30.0 pg 25.6-32.2 (BEAKER) (test code = 751) MEAN CORPUSCULAR HEMOGLOBIN CONC 32.5 GM/DL 32.2-35.5 (BEAKER) (test code = 752) RED CELL DISTRIBUTION WIDTH 14.6 % 11.7-14.4 H (BEAKER) (test code = 412) PLATELET COUNT (BEAKER) (test code 97 K/CU MM 150-450 L = 756) MEAN PLATELET VOLUME (BEAKER) 11.4 fL 9.4-12.3 (test code = 754) NUCLEATED RED BLOOD CELLS (BEAKER) 0 /100 WBC 0-0 (test code = 413) NEUTROPHILS RELATIVE PERCENT 87 % (BEAKER) (test code = 429) LYMPHOCYTES RELATIVE PERCENT 7 % (BEAKER) (test code = 430) MONOCYTES RELATIVE PERCENT 5 % (BEAKER) (test code = 431) EOSINOPHILS RELATIVE PERCENT 0 % (BEAKER) (test code = 432) BASOPHILS RELATIVE PERCENT 0 % (BEAKER) (test code = 437) NEUTROPHILS ABSOLUTE COUNT 10.73 K/ L 1.56-6.13 H (BEAKER) (test code = 670) LYMPHOCYTES ABSOLUTE COUNT 0.86 K/ L 1.18-3.74 L (BEAKER) (test code = 414) MONOCYTES ABSOLUTE COUNT (BEAKER) 0.65 K/ L 0.24-0.36 H (test code = 415) EOSINOPHILS ABSOLUTE COUNT 0.00 K/ L 0.04-0.36 L (BEAKER) (test code = 416) BASOPHILS ABSOLUTE COUNT (BEAKER) 0.03 K/ L 0.01-0.08 (test code = 417) IMMATURE GRANULOCYTES-RELATIVE 1 % 0-1 PERCENT (BEAKER) (test code = 2801) URINALYSIS W/ REFLEX URINE [id number] 05:55:00 Test Item Value Reference Range Interpretation Comments COLOR (BEAKER) (test code = 470) Yellow CLARITY (BEAKER) (test code = 469) Hazy SPECIFIC GRAVITY UA (BEAKER) (test 1.014 1.001-1.035 code = 468) PH UA (BEAKER) (test code = 467) 6.0 5.0-8.0 PROTEIN UA (BEAKER) (test code = Negative Negative 464) GLUCOSE UA (BEAKER) (test code = Negative Negative 365) KETONES UA (BEAKER) (test code = Negative Negative 371) BILIRUBIN UA (BEAKER) (test code = Negative Negative 462) BLOOD UA (BEAKER) (test code = 461) Small Negative A NITRITE UA (BEAKER) (test code = Negative Negative 465) LEUKOCYTE ESTERASE UA (BEAKER) Negative Negative (test code = 466) UROBILINOGEN UA (BEAKER) (test code 0.2 mg/dL 0.2-1.0 = 463) RBC UA (BEAKER) (test code = 519) 8 /HPF WBC UA (BEAKER) (test code = 520) 1 /HPF SQUAMOUS EPITHELIAL (BEAKER) (test 24 /HPF code = 516) HYALINE CASTS (BEAKER) (test code = 2 /LPF 514) AMORPHOUS CRYSTALS (BEAKER) (test Moderate code = 1584) SOURCE(BEAKER) (test code = 2795) Reporting Developer ID - [auto]Reporting Developer ID - techCreatine Kinase (CK)2020-04-01 05:42:00 Test Item Value Reference Range Interpretation Comments Total CK (test code = 79 U/L 29-200 7-6) VIKKI (test code = VIKKI) Reporting Developer ID - ZAHRA M Lab Interpretation (test Normal code = 58364-9) [facility] HospitalPHOSPHORUS2020-05-25 05:42:00 Test Item Value Reference Range Interpretation Comments PHOSPHORUS (BEAKER) (test code = 3.0 mg/dL 2.3-4.7 604) Reporting Developer ID - ZAHRA [id number] 05:42:00 Test Item Value Reference Range Interpretation Comments MAGNESIUM (BEAKER) (test code = 2.1 mg/dL 1.6-2.6 627) Reporting Developer ID - ZAHRA MBASIC METABOLIC [id number] 05:42:00 Test Item Value Reference Range Interpretation Comments SODIUM (BEAKER) 140 meq/L 136-145 (test code = 381) POTASSIUM (BEAKER) 3.8 meq/L 3.5-5.1 (test code = 379) CHLORIDE (BEAKER) 112 meq/L 98-107 H (test code = 382) CO2 (BEAKER) (test 20 meq/L 22-29 L code = 355) BLOOD UREA NITROGEN 16 mg/dL 7-21 (BEAKER) (test code = 354) CREATININE (BEAKER) 0.82 mg/dL 0.57-1.25 (test code = 358) GLUCOSE RANDOM 119 mg/dL 70-105 H (BEAKER) (test code = 652) CALCIUM (BEAKER) 8.8 mg/dL 8.4-10.2 (test code = 697) EGFR (BEAKER) (test 72 mL/min/1.73 ESTIMA JASSI GFR IS code = 1092) sq m NOT ACCURATE CREATININE CLEARANCE IN PREDICTING GLOMERULAR FILTRATION RATE . ESTIMATED GFR I S NOT APPLICABLE FOR DIALYSIS PATIEN TS. Reporting Developer ID - ZAHRA MCREATINE KINASE (CK)2020-04-01 05:42:00 Test Item Value Reference Range Interpretation Comments CREATINE KINASE TOTAL (BEAKER) (test 79 U/L 29-200 code = 380) Reporting Developer ID - ZAHRA MPT/[id number] 05:34:00 Test Item Value Reference Range Interpretation Comments Protime (test code = 15.4 11.9- 14.2 H 5902-2) seconds INR (test code = 1.3 <=5.9 6301-6) PTT (test code = 25.8 22.5- 36.0 60991-9) seconds VIKKI (test code = VIKKI) Effective 04/05/2019: PT Reference Range ChangeNew: 11.9-14.2 Previous: 11.7-14.7 RECOMMENDED COUMADIN/WARFARIN INR THERAPY RANGESSTANDARD DOSE: 2.0-3.0 Includes: PROPHYLAXIS for venous thrombosis, systemic embolization; TREATMENT for venous thrombosis and/or pulmonary embolus.HIGH RISK: Target INR is 2.5-3.5 for patients wiht mechanical heart valves. Lab Interpretation Abnormal (test code = 50338-1) [facility] HospitalPT/[id number] 05:34:00 Test Item Value Reference Range Interpretation Comments PROTIME (BEAKER) (test code = 15.4 seconds 11.9-14.2 H 759) INR (BEAKER) (test code = 370) 1.3 <=5.9 PARTIAL THROMBOPLASTIN TIME 25.8 seconds 22.5-36.0 (BEAKER) (test code = 760) Effective 04/05/2019: PT Reference Range ChangeNew: 11.9-14.2 Previous: 11.7- 14.7RECOMMENDED COUMADIN/WARFARIN INR THERAPY RANGESSTANDARD DOSE: 2.0-3.0 Includes: PROPHYLAXIS for venous thrombosis, systemic embolization; TREATMENT for venous thrombosis and/or pulmonary embolus.HIGH RISK: Target INR is2.5-3.5 for patients wiht mechanical heart valves.RAD, CHEST, 1 VIEW, NON [id number] 05:12:00Reason for exam:->post intubationIs the patient ?->UnknownFINAL REPORT History: Intubation. Comparison: 04/24/2016 Findings: A single view of the chest is submitted. The tip of an endotracheal tube is in good position between the clavicles and esmer. The cardiomediastinal contours are unremarkable. Blunting of the left costophrenic sulcus may reflect pleural thickening or a trace effusion. Retrocardiac opacity may reflect atelectasis in the supine patient but pneumonitis should be excluded clinically. There is no pneumothorax, evidence of overt pulmonary edema or acute bony abnormality. An enteric tube traverses examination to the upper abdomen. 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.Critical care was time spent personally by me on the following activities: discussions with consultants, evaluation of patient's response to treatment, obtaining history from patient or surrogate, ordering and review of laboratory studies, pulse oximetry, development of treatment plan with patient or surrogate, interpretation of cardiac output measurements, examination of patient, ordering and performing treatments and interventions, ordering and review of radiographic studies and re-evaluation of patient's condition.[facility] ECG/EKG [id number] 04:51:54Glendy Clayton MD 04/15/2020 3:33 PMECG/EKG InterpretationDate/Time: 04/15/2020 3:33 PMPerformed by: Glendy Clayton MDAuthorized by: Arturo Downs MD The ECG was interpreted by ED physician. The ECG is interpreted as sinus tachycardia. Rate is tachycardic. Heart rate is 111 BPM.ST segments normal. T waves normal. [place] is normal. Other findings include: prolonged QTc interval. Clinical Impression: non-specific ECGECG reviewed and does not meet STEMI criteria. Patient tolerance: Patient tolerated the procedure well with no immediate complicationsCHI [facility] Hepatitis C Virus RNA Detect/[id number] 02:35:14 Test Item Value Reference Range Interpretation Comments HepC RNA PCR Undetected Undetected IU/mL Result in l og IU/mL is [place] (test Undetected. code = 53747-3) -------ADDITIO NAL INFORMATION---- ----The quantif ication range of this a ssay is 15 to 100,000,000I U/mL (1.18 log to 8.00 log IU/mL). Testing was per formedusing the natasha HCV t est ([employer]with the [employer] sameer Ezeec[employer]0 System. Test Pe rformed by:[place] [id number] Director: Malachi Kamara M.D. Ph. D.; CLIA# [id number] MD HawleyFlow Cytometry Specimen Collection -[id number] 03:27:49 Test Item Value Reference Range Interpretation Comments Flow Cytometry (Received) (test code = Yes 8319) MD HawleyFC CD4/CD8 [id number] 03:27:39 Test Item Value Reference Range Interpretation Comments WBC Count, Ratio Add 8.0 K/uL (test code = 8461) Gated Lymph Region, 12 % Ratio Add (test code = 8353) CD3+ (test code = 72.6 % 64.5-88.5 8124-0) CD3+ Absolute (test 697 395- 2,692 code = 8122-4) cells/mcL CD3+CD4+ (test code = 59.0 % 37.7-64.2 8123-2) CD3+CD4+ Absolute 566 188- 1,883 (test code = 45393-8) cells/mcL CD3+CD8+ (test code = 13.2 % 10.9-35.3 8101-8) CD3+CD8+ Absolute 127 82- 831 (test code = 01415-5) cells/mcL CD4+/CD8+ Ratio (test 4.47 1.80-3.50 H code = 43234-7) VIKKI (test code = VIKKI) This test was developed and its performance characteristics determined by [facility] Clinical Flow Cytometry [facility]. It has not been cleared or approved by the US Food and Drug Administration. The FDA does not require this test go through premarket FDA review. This test is used for clinical purposes. It should not be regarded as investigational or for research. This laboratory is certified under the Clinical Laboratory Improvement Amendment of 1988 (CLIA) as qualified to perform high complexity clinical laboratory testing. Lab Interpretation Abnormal (test code = 11623-9) MD HawleyFractionated [id number] 14:54:13 Test Item Value Reference Range Interpretation Comments Bili Total (test 0.9 mg/dL <=1.2 Indocyanine Green (ICG) code = 5096) may cause false ly elevated biliru bin results. Total and direct bilirubin must not be measured from s amples containing indo cyanine green. False el evation of total bilirubin can be seen in patient s with IgG concentrations above 28 g/L. Bili Direct (test 0.3 mg/dL <=0.3 Indocyanin e Green (ICG) code = 5094) may cause false ly elevated biliru bin results. Total and direct bilirubin must not be measured from s amples containing indo cyanine green. Bili Indirect (test 0.6 mg/dL 0-0.9 code = 5095) MD HawleyAlkaline [id number] 14:54:11 Test Item Value Reference Range Interpretation Comments Alk Phos (test code = 4768) 137 U/L 35-104 H Lab Interpretation (test code = Abnormal 90378-6) MD HawleyAlbumin [id number] 14:54:10 Test Item Value Reference Range Interpretation Comments Albumin Lvl (test code = 4763) 4.4 3.5- 5.2 gm/dL MD HawleyAspartate [id number] 14:54:08 Test Item Value Reference Range Interpretation Comments AST (test code = 4731) 22 U/L <=32 MD HawleyTotal [id number] 14:54:07 Test Item Value Reference Range Interpretation Comments Total Protein (test code = 7649) 8.5 6.4- 8.3 gm/dL H Lab Interpretation (test code = Abnormal 60118-9) MD [id number] 14:54:06 Test Item Value Reference Range Interpretation Comments ALT (test code = 4705) 17 U/L <=33 MD HawleyPartial Thromboplastin [id number] 14:41:17 Test Item Value Reference Range Interpretation Comments PTT (test code = 15339-8) 29.2 24.7- 35.9 second(s) MD HawleyProthrombin Time with [id number] 14:41:16 Test Item Value Reference Range Interpretation Comments PT (test code = 5902-2) 14.7 12.7- 15.0 second(s) INR (test code = 6301-6) 1.13 0.90-1.20 MD HawleyJvggbfqwIdnpkdmgqgqu0112-40-84 14:24:03 Test Item Value Reference Range Interpretation Comments Neutrophil % (test code = 77.2 % 42-66 H 08902-5) Lymphocyte % (test code = 16.8 % 24-44 L 737-7) Monocyte % (test code = 3.9 % 2-7 744-3) Eosinophil % (test code = 1.3 % 1-4 713-8) Basophil % (test code = 0.5 % 0-1 707-0) IGRE % (test code = 0.3 % 0-0.4 IGRE % c ount 49090-7) includes Metamyelocytes, Myelocytes, and Promyelocytes. Neutrophil Abs (test code 6.16 K/uL 1.7-7.3 = 753-4) Lymphocyte Abs (test code 1.34 K/uL 1-4.8 = 732-8) Monocyte Abs (test code = 0.31 K/uL 0.08-0.7 743-5) Eosinophil Abs (test code 0.10 K/uL 0.04-0.4 = 712-0) Basophil Abs (test code = 0.04 K/uL 0-0.1 705-4) IG Abs (test code = 0.02 K/uL 0-0.04 80933-7) Lab Interpretation (test Abnormal code = 55048-8) MD Hawley.[id number] 14:23:59 Test Item Value Reference Range Interpretation Comments WBC (test code = 8.0 K/uL 4-11 6690-2) RBC (test code = 789-8) 4.90 4.00- 5.50 M/uL Hgb (test code = 718-7) 14.0 12.0- 16.0 gm/dL Hct (test code = 41.9 % 37-47 4544-3) MPV (test code = 787-2) 12.8 fL 4-10.4 H MCH (test code = 785-6) 28.6 pg 27-31 MCHC (test code = 33.4 31.0- 36.0 gm/dL 786-4) RDW-SD (test code = 52.7 fL 35.1-46.3 H 52743-9) RDW-CV (test code = 17.1 % 12-15.5 H 788-0) Platelet count (test 114 K/uL 140-440 L code = 777-3) INRBC (test code = 0.0 % <=0.0 The INRBC (instrument 5974) NRBC) value ref lects the enumeration of nucleated red b lood cells contained in a 200uL sampleof whole blood analyzed by the instrument. Thi s value maydiffer from the NRBC value reported in a m anual differential,wh ich is based on a 100 cell differential. Lab Interpretation Abnormal (test code = 82767-2) MD HawleyPOC Glucose, [id number] 05:26:00 Test Item Value Reference Range Interpretation Comments POC Glucose (test 136 mg/dL 70-115 H Notify RN or Fabiola you code = POCGLUC) consider you r patient critically ill, the [facility] Accu-Chek InformII metershould not be used for Glucose determinations. Draw a venous Glucose and send to the Main Lab for Analysis. [id number] 08:15:00 Test Item Value Reference Range Interpretation Comments [place] (test code = LI) 0.44 mmol/L 0.6-1.2 L POC Glucose, [id number] 05:37:00 Test Item Value Reference Range Interpretation Comments POC Glucose (test 134 mg/dL 70-115 H If you con inspector precision assembly your code = POCGLUC) patient crit ically ill, the [facility] Accu- Chek InformII meters hould not be used for Glu cose determinations. Draw a venous Glucose and send to the Main Lab for Analysis. POC Glucose, [id number] 07:28:00 Test Item Value Reference Range Interpretation Comments POC Glucose (test 128 mg/dL 70-115 H If you con inspector precision assembly your code = POCGLUC) patient crit ically ill, the [facility] Accu- Chek InformII meters hould not be used for Glu cose determinations. Draw a venous Glucose and send to the Main Lab for Analysis. POC Glucose, [id number] 20:18:00 Test Item Value Reference Range Interpretation Comments POC Glucose (test 121 mg/dL 70-115 H If you con inspector precision assembly your code = POCGLUC) patient crit ically ill, the [facility] Accu- Chek InformII meters hould not be used for Glu cose determinations. Draw a venous Glucose and send to the Main Lab for Analysis. BHCG, Serum, [id number] 22:36:00 Test Item Value Reference Range Interpretation Comments Preg Qual [Se] (test code = BSHCG) Negative Negative N POC Glucose, [id number] 15:14:00 Test Item Value Reference Range Interpretation Comments POC Glucose (test 117 mg/dL 70-115 H If you con inspector precision assembly your code = POCGLUC) patient crit ically ill, the [facility] Accu- Chek InformII meters hould not be used for Glu cose determinations. Draw a venous Glucose and send to the Main Lab for Analysis.
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
--- NOTE | 2020-07-03 14:48 | EDPHYS ---
Physician Documentation [facility] Name: Wendi Norton Age: 54 yrs Sex: Female : 1965 Arrival Date: 07/03/2020 Time: 12:55 Bed 25 Private MD: Lea Bolden ED Physician Gato Smart HPI: 07/03 14:45 This 54 yrs old Female presents to ER via Ambulatory with complaints of rn Toothache. 14:45 The patient presents with pain. The problem is located in the left upper molar. Onset: rn The symptoms/episode began/occurred at an unknown time. Duration: The symptoms are intermittent. Modifying factors: the symptoms are aggravated by chewing. Severity of symptoms: At their worst the symptoms were mild, in the emergency department the symptoms are unchanged. The patient has experienced similar episodes in the past. No injury, + acute on chronic dental pain. No fever. . 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 - Social history:: Smoking status: Patient reports the use of cigarette tobacco products, smokes one-half pack cigarettes per day. - Family history:: not pertinent. - Hospitalizations: : No recent hospitalization is reported. ROS: 14:45 Constitutional: Negative for fever, chills, and weight loss, ENT: + dental pain, no rn swelling Exam: 14:45 Constitutional: This is a well developed, well nourished patient who is awake, alert, rn and in no acute distress. ENT: Poor dentition, no abscess, no drainage, uvula midline, soft floor of mouth. Vital Signs: 13:37 BP 120 / 71; Pulse 103; Resp 17; Temp 97.9; Pulse Ox 95% ; Pain 8/10; jl7 MDM: 14:02 Patient medically screened. rn 14:45 Differential diagnosis: dental caries. Data reviewed: vital signs, nurses notes, and as rn a result, I will discharge patient. Counseling: I had a detailed discussion with the patient and/or guardian regarding: the historical points, exam findings, and any diagnostic results supporting the discharge/admit diagnosis, the need for outpatient follow up, to return to the emergency department if symptoms worsen or persist or if there are any questions or concerns that arise at home. Special discussion: I discussed with the patient/guardian in detail that at this point there is no indication for admission to the hospital. It is understood, however, that if the symptoms persist or worsen the patient needs to return immediately for re-evaluation. Based on the history and exam findings, there is no indication for further emergent testing or inpatient evaluation. I discussed with the patient/guardian the need to see a dentist for further evaluation of the symptoms. Administered Medications: 14:59 Drug: [place] 5 mg-325 mg 1 tabs Route: PO; ss 15:15 Follow up: Response: Medication administered at discharge. ss Disposition: 07/03/20 14:47 Discharged to Home. Impression: Dental caries. - Condition is Stable. - Discharge Instructions: Dental Pain. - Prescriptions for Clindamycin HCl 300 mg Oral Capsule - take 1 capsule by ORAL route every 6 hours for 10 days; 40 capsule. Ultram 50 mg Oral Tablet - take 1 tablet by ORAL route every 6 hours As needed; 10 tablet. - Medication Reconciliation Form, Thank You Letter, Antibiotic Education, Prescription Opioid Use form. - Follow up: Private Physician; When: As needed; Reason: Recheck today's complaints, Re-evaluation by your physician. - Problem is new. - Symptoms are unchanged. Signatures: Gato Smart MD MD rn Smirch, Shelby, RN RN Robert Cleary RN RN jl7 Corrections: (The following items were deleted from the chart) 15:27 14:47 07/03/2020 14:47 Discharged to Home. Impression: Dental caries. Condition is ss Stable. Forms are Medication Reconciliation Form, Thank You Letter, Antibiotic Education, Prescription Opioid Use. Follow up: Private Physician; When: As needed; Reason: Recheck today's complaints, Re-evaluation by your physician. Problem is new. Symptoms are unchanged. rn
--- NOTE | 2020-07-03 14:48 | ER ---
Nurse's Notes [facility] Name: Wendi Norton Age: 54 yrs Sex: Female : 1965 Arrival Date: 07/03/2020 Time: 12:55 Bed 25 Private MD: Lea Bolden Diagnosis: Dental caries Presentation: 07/03 13:37 Chief complaint: Patient states: Left upper tooth starting hurting x 5 days. jl7 Coronavirus screen: Client denies travel out of the [place] in the last 14 days. At this time, the client does not indicate any symptoms associated with coronavirus-19. Ebola Screen: No symptoms or risks identified at this time. Initial Sepsis Screen: Does the patient meet any 2 criteria? No. Patient's initial sepsis screen is negative. Does the patient have a suspected source of infection? No. Patient's initial sepsis screen is negative. Risk Assessment: Do you want to hurt yourself or someone else? Patient reports no desire to harm self or others. Onset of symptoms was June 28, 2020. Care prior to arrival: None. Transition of care: patient was not received from another setting of care. 13:37 Method Of Arrival: Ambulatory [facility] 13:37 Acuity: RAUL 4 jl7 Triage Assessment: 13:39 General: Appears in no apparent distress. uncomfortable, Behavior is cooperative, jl7 anxious. Pain: Complains of pain in mouth Pain currently is 8 out of 10 on a pain scale. EENT: Reports pain Pain is 8 out of 10 on a pain scale. 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 - Social history:: Smoking status: Patient reports the use of cigarette tobacco products, smokes one-half pack cigarettes per day. - Family history:: not pertinent. - Hospitalizations: : No recent hospitalization is reported. Screenin:19 Abuse screen: Denies threats or abuse. Denies injuries from another. Nutritional ss screening: No deficits noted. Tuberculosis screening: Never had TB. Fall Risk None identified. Assessment: 14:19 General: Appears uncomfortable, Behavior is calm, cooperative. Pain: Complains of pain ss in left buccal mucosa Pain currently is 8 out of 10 on a pain scale. Quality of pain is described as tender, Is continuous. Neuro: Level of Consciousness is awake, alert, obeys commands, Oriented to person, place, time, situation. Cardiovascular: Capillary refill < 3 seconds is brisk in bilateral fingers. Respiratory: Airway is patent Respiratory effort is even, unlabored, Respiratory pattern is regular, symmetrical, Denies cough, shortness of breath. GI: No signs and/or symptoms were reported involving the gastrointestinal system. EENT: Poor dentition noted. Derm: Skin is intact, is healthy with good turgor, Skin is pink, warm \T\ dry. normal. Musculoskeletal: Circulation, motion, and sensation intact. Range of motion: intact in all extremities, Swelling absent. Vital Signs: 13:37 BP 120 / 71; Pulse 103; Resp 17; Temp 97.9; Pulse Ox 95% ; Pain 8/10; jl7 ED Course: 12:55 Patient arrived in ED. ag5 12:55 Lea Bolden MD is Private Physician. ag5 13:38 Triage completed. jl7 13:39 Arm band placed on right wrist. Patient placed in waiting room, Patient notified of jl7 wait time. 14:02 Gato Smart MD is Attending Physician. rn 14:19 Dana Worley RN is Primary Nurse. ss 14:19 Patient has correct armband on for positive identification. Bed in low position. Call ss light in reach. 14:19 No provider procedures requiring assistance completed. ss 15:26 Patient did not have IV access during this emergency room visit. ss Administered Medications: 14:59 Drug: [place] 5 mg-325 mg 1 tabs Route: PO; ss 15:15 Follow up: Response: Medication administered at discharge. ss Outcome: 14:47 Discharge ordered by . rn 15:26 Discharged to home ambulatory. ss 15:26 Condition: good 15:26 Discharge instructions given to patient, Instructed on discharge instructions, follow up and referral plans. medication usage, Demonstrated understanding of instructions, follow-up care, medications, Prescriptions given X 2. 15:27 Patient left the ED. ss Signatures: Gato Smart MD MD rn Smirch, Shelby, RN RN ss Robert Cleary, RN RN jl7 Angela Colon 5
[2020-07-03] MEDS ORDERED: HYDROCODONE/APAP 5/325 MG TAB ONE (15:06)
[2020-07-08 10:52] VITALS: BP 120/71; TEMP 97.9; O2SAT 95
== END 2020-07-03 15:27 | disposition home or self-care (01) ==
LOC: ER 12:54
DX: K02.9 Dental caries, unspecified (principal); F17.210 Nicotine dependence, cigarettes, uncomplicated; Z88.6 Allergy status to analgesic agent; Z85.3 Personal history of malignant neoplasm of breast
CPT/HCPCS: 99283

== ENCOUNTER 2020-08-08 10:13 | Emergency (ER) | payer OTHER ==
[2020-08-08] MEDS ORDERED: KETOROLAC 30 MG/ML INJ ONE (11:55)
--- NOTE | 2020-08-08 12:20 | ER ---
Nurse's Notes [facility] Name: Wendi oNrton Age: 54 yrs Sex: Female : 1965 Arrival Date: 08/08/2020 Time: 10:17 Bed 25 Private MD: Diagnosis: Pain in right forearm Presentation: 08/08 10:17 Chief complaint: Patient states: right arm pain for one year, no new trauma. No fever. iw Coronavirus screen: At this time, the client does not indicate any symptoms associated with coronavirus-19. Ebola Screen: Patient negative for fever greater than or equal to 101.5 degrees Fahrenheit, and additional compatible Ebola Virus Disease symptoms Patient denies exposure to infectious person. Patient denies travel to an Ebola-affected area in the 21 days before illness onset. No symptoms or risks identified at this time. Initial Sepsis Screen: Does the patient meet any 2 criteria? No. Patient's initial sepsis screen is negative. Does the patient have a suspected source of infection? No. Patient's initial sepsis screen is negative. Risk Assessment: Do you want to hurt yourself or someone else? Patient reports no desire to harm self or others. 10:17 Method Of Arrival: EMS: [facility] iw 10:17 Acuity: RAUL 4 iw 10:37 Onset of symptoms was 2019. ll1 Triage Assessment: 12:00 General: Appears in no apparent distress. Behavior is calm, cooperative. 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 - Social history:: Smoking status: Patient denies any tobacco usage or history of. Screenin:29 Abuse screen: Denies threats or abuse. Denies injuries from another. Nutritional iw screening: No deficits noted. Tuberculosis screening: No symptoms or risk factors identified. Fall Risk None identified. Assessment: 11:30 General: Appears in no apparent distress. comfortable, Behavior is calm, cooperative. iw Pain: Complains of pain in palmar aspect of right forearm. Neuro: Level of Consciousness is awake, alert, obeys commands, Oriented to person, place, time, situation, Moves all extremities. Full function. Cardiovascular: Patient's skin is warm and dry. Respiratory: Respiratory effort is even, unlabored, Respiratory pattern is regular, symmetrical. GI: No signs and/or symptoms were reported involving the gastrointestinal system. Derm: Skin is intact, is healthy with good turgor. Musculoskeletal: Range of motion: intact in all extremities. Vital Signs: 10:17 BP 153 / 100; Temp 97.9; Pulse Ox 95% on R/A; iw 10:37 BP 130 / 85; Pulse 105; Resp 18; Temp 98.4; Pulse Ox 98% ; Weight 86.18 kg; Height 5 ll1 ft. 2 in. (157.48 cm); Pain 5/10; 10:37 Body Mass Index 34.75 (86.18 kg, 157.48 cm) ll1 ED Course: 10:17 Patient arrived in ED. iw 10:18 Triage completed. iw 10:39 Arm band placed on. ll1 11:30 Patient has correct armband on for positive identification. iw 11:33 Danette Fletcher, RN is Primary Nurse. iw 11:33 Alphonso Simeon PA is PHCP. jr8 11:33 Volodymyr Watson MD is Attending Physician. jr8 12:18 Stephen Inman MD is Referral Physician. jr8 12:29 No provider procedures requiring assistance completed. Patient did not have IV access iw during this emergency room visit. 12:47 XRAY Forearm RIGHT In Process Unspecified. EDMS Administered Medications: 11:55 Drug: TORadol 30 mg Route: IM; Site: right deltoid; iw Outcome: 12:19 Discharge ordered by . jr8 12:29 Discharged to home ambulatory. iw 12:29 Condition: good 12:29 Discharge instructions given to patient, Instructed on discharge instructions, follow up and referral plans. medication usage, Demonstrated understanding of instructions, follow-up care, medications, Prescriptions given X 1. 12:30 Patient left the ED. iw Signatures: Dispatcher [employer] EDMS Danette Fletcher RN RN iw Alphonso Simeon PA PA jr8 Liliya Myrick RN RN ll1 Corrections: (The following items were deleted from the chart) 10:38 10:17 Chief complaint: Patient states: right arm pain for one month, no trauma iw ll1
--- NOTE | 2020-08-08 12:20 | EDPHYS ---
Physician Documentation [facility] Name: Wendi Norton Age: 54 yrs Sex: Female : 1965 Arrival Date: 08/08/2020 Time: 10:17 Bed 25 Private MD: ED Physician Volodymyr Watson HPI: 08/08 12:16 This 54 yrs old Female presents to ER via EMS with complaints of Arm Pain. jr8 12:16 The patient or guardian complains of pain. The complaints affect the palmar aspect of jr8 right forearm. Onset: The symptoms/episode began/occurred gradually, 1 week(s) ago. Modifying factors: The symptoms are alleviated by nothing. the symptoms are aggravated by movement. Associated signs and symptoms: The patient has no apparent associated signs or symptoms. Severity of symptoms: At their worst the symptoms were mild, in the emergency department the symptoms are unchanged. The patient has experienced a previous episode. The patient has not recently seen a physician. Patient stated that she has broke this arm in past. Has had pain on/off since then. Worse this week . Denies new trauma . 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 - Social history:: Smoking status: Patient denies any tobacco usage or history of. ROS: 12:16 Eyes: Negative for injury, pain, redness, and discharge, ENT: Negative for injury, jr8 pain, and discharge, Neck: Negative for injury, pain, and swelling, Cardiovascular: Negative for chest pain, palpitations, and edema, Respiratory: Negative for shortness of breath, cough, wheezing, and pleuritic chest pain, Abdomen/GI: Negative for abdominal pain, nausea, vomiting, diarrhea, and constipation, Back: Negative for injury and pain, Skin: Negative for injury, rash, and discoloration, Neuro: Negative for headache, weakness, numbness, tingling, and seizure. 12:16 MS/extremity: Positive for pain, tenderness, of the palmar aspect of right forearm. Exam: 12:16 Constitutional: This is a well developed, well nourished patient who is awake, alert, jr8 and in no acute distress. Cardiovascular: Regular rate and rhythm with a normal S1 and S2. No gallops, murmurs, or rubs. Normal PMI, no JVD. No pulse deficits. Respiratory: Lungs have equal breath sounds bilaterally, clear to auscultation and percussion. No rales, rhonchi or wheezes noted. No increased work of breathing, no retractions or nasal flaring. Skin: Warm, dry with normal turgor. Normal color with no rashes, no lesions, and no evidence of cellulitis. Neuro: Awake and alert, GCS 15, oriented to person, place, time, and situation. Cranial nerves II-XII grossly intact. Motor strength 5/5 in all extremities. Sensory grossly intact. Cerebellar exam normal. Normal gait. 12:16 Musculoskeletal/extremity: Extremities: grossly normal except: noted in the right forearm: pain, tenderness, ROM: intact in all extremities, full active range of motion, full passive range of motion, Circulation is intact in all extremities. Sensation intact. Vital Signs: 10:17 BP 153 / 100; Temp 97.9; Pulse Ox 95% on R/A; iw 10:37 BP 130 / 85; Pulse 105; Resp 18; Temp 98.4; Pulse Ox 98% ; Weight 86.18 kg; Height 5 ll1 ft. 2 in. (157.48 cm); Pain 5/10; 10:37 Body Mass Index 34.75 (86.18 kg, 157.48 cm) ll1 MDM: 11:33 Patient medically screened. jr8 12:16 Data reviewed: vital signs, nurses notes, radiologic studies, plain films. Data jr8 interpreted: Pulse oximetry: on room air is 98 %. Interpretation: normal. Test interpretation: by ED physician or midlevel provider: plain radiologic studies, Negative for acute findings on plain films . Counseling: I had a detailed discussion with the patient and/or guardian regarding: the historical points, exam findings, and any diagnostic results supporting the discharge/admit diagnosis, radiology results, the need for outpatient follow up, a orthopedic surgeon, to return to the emergency department if symptoms worsen or persist or if there are any questions or concerns that arise at home. Response to treatment: the patient's symptoms have mildly improved after treatment, and as a result, I will discharge patient. 08/08 11:40 Order name: XRAY Forearm RIGHT jr8 Administered Medications: 11:55 Drug: TORadol 30 mg Route: IM; Site: right deltoid; iw Disposition: 08/09 09:25 Co-signature as Attending Physician, Volodymyr Watson MD I agree with the assessment and kdr plan of care. Disposition: 08/08/20 12:19 Discharged to Home. Impression: Pain in right forearm. - Condition is Stable. - Discharge Instructions: Musculoskeletal Pain. - Prescriptions for meloxicam 15 mg Oral tablet - take 1 tablet by ORAL route once daily As needed; 20 tablet. - Medication Reconciliation Form, Thank You Letter, Antibiotic Education, Prescription Opioid Use form. - Follow up: Stephen Inman MD; When: As needed; Reason: Recheck today's complaints, Continuance of care, Re-evaluation by your physician. - Problem is new. - Symptoms have improved. Signatures: Dispatcher [employer] EDMS Volodymyr Watson MD MD [facility] Danette Fletcher RN RN Alphonso Simeon PA PA jr8 Liliya Myrick RN RN ll1 Corrections: (The following items were deleted from the chart) 08/08 12:30 12:19 08/08/2020 12:19 Discharged to Home. Impression: Pain in right forearm. Condition iw is Stable. Forms are Medication Reconciliation Form, Thank You Letter, Antibiotic Education, Prescription Opioid Use. Follow up: Dr. Stephen Inman; When: As needed; Reason: Recheck today's complaints, Continuance of care, Re-evaluation by your physician. Problem is new. Symptoms have improved. jr8
[2020-08-08 12:40] VITALS: BP 130/85; TEMP 98.4; O2SAT 98
--- NOTE | 2020-08-09 14:29 | RAD REPORT ---
EXAM DESCRIPTION: RAD - Forearm Right - 08/09/2020 7:49 am CLINICAL HISTORY: Right arm pain FINDINGS: Deformity of the distal right radius secondary to old fracture No acute fracture is seen. Bones are osteoporotic
--- OUTSIDE RECORDS SUMMARY | 2020-08-14 15:31 | XMS REPORT | Clinical Summary ---
:1965 Author Organization [facility] Address [address] [place] [address] Care Team Providers Name Role Phone Unavailable [...] Only General Internal Medicine 04/01/2020 Travel after 08/14/2019 Social History Tobacco Use Types Packs/Day Years [...] are i n the results section. SARS-COV2/RT-PCR ([facility] STAT 04/01/2020 5:24 R esults for [...] are i n the results section. after 08/14/2019 Results RHYTHM STRIP - SCAN (04/17/2020 3:11 PM CDT) Narrative Performed At This result has an attachment that is no t available. POC-Glucose meter (04/15/2020 10:05 PM CDT)Only the most recent of52 results within the time period is included. POC-Glucose Meter 124 (H)Comment: : TESTED 70 - 110 mg/dL [facility] AT [address], [address]: Cashier Gambling/Slip Cover Cutter ID = [id number] for RAY ERVIN Specimen Blood Performing Organization Address [facility] Cent[facility] Phone Number [address] [phone] CENTER Magness level (04/12/2020 4:26 AM CDT)Only the most recent of3 resultswithin the time period is included. Magness Level 0.6 (L) 0.8 - 1.2 mmol/L [facility] Specimen Blood Narrative Performed At This result has an attachment that is no t available. Performing Organization Address [facility] Centercodc Phone Number [address] [address] CENTER CBC with platelet count + automated diff (04/10/2020 3:58 AM CDT)Only the most recent of10 resultswithin the time period is included. WBC 4.6 3.5 - 10.5 K/L [facility] RBC 4.19 3.93 - 5.22 M/L [facility] Hemoglobin 12.0 11.2 - 15.7 GM/DL [facility] Hematocrit 37.6 34.1 - 44.9 % [facility] MCV 89.7 79.4 - 94.[address] [facility] MCH 28.6 25.6 - 32.[address] [facility] MCHC 31.9 (L) 32.2 - 35.5 GM/DL [facility] RDW 13.8 11.7 - 14.4 % [facility] Platelets 92 (L) 150 - 450 K/CU MM [facility] MPV 12.3 9.4 - 12.3 fL [facility] nRBC 0 0 - 0 /100 WBC [facility] % Neutros 48 % [facility] % Lymphs 37 % [facility] % Monos 11 % [facility] % Eos 3 % [facility] % Baso 0 % [facility] # Neutros 2.20 1.56 - 6.13 K/L [facility] # Lymphs 1.69 1.18 - 3.74 K/L [facility] # Monos 0.50 (H) 0.24 - 0.36 K/L [facility] # Eos 0.13 0.04 - 0.36 K/L [facility] # Baso 0.02 0.01 - 0.08 K/L [facility] Immature Granulocytes-Relative 0 0 - 1 % C HI [facility] Specimen Blood Performing Organization Address City/State/Zipcode Phone Number [facility] [address] [place] [address] CENTER Basic Metabolic Panel (04/10/2020 3:58 AM CDT)Only the most recent of6 results within the time period is included. Sodium 143 136 - 145 meq/L [facility] Potassium 4.0 3.5 - 5.1 meq/L [facility] Chloride 111 (H) 98 - 107 meq/L [facility] CO2 25 22 - 29 meq/L [facility] BUN 11 7 - 21 mg/dL [facility] Creatinine 0.76 0.57 - 1.25 mg/dL [facility] Glucose 106 (H) 70 - 105 mg/dL [facility] Calcium 9.6 8.4 - 10.2 mg/dL [facility] EGFR 79Comment: ESTIMATED GFR IS mL/min/1.73 sq m [facility] NOT ACCURATE CREATININE [facility] CLEARANCE IN PREDICTING GLOMERULAR FILTRATION RATE. ESTIMATED GFR IS NOT APPLICABLE FOR DIALYSIS PATIENTS. Specimen Blood Narrative Performed At Cashier Gambling DEEPA Velazquez ZAHRA Sg [facility] Performing Organization Address City/State/Zipcode Phone Number [facility] [address] [place] [address] [place] Comprehensive metabolic panel (04/08/2020 3:42 AM CDT)Only the most recent of3 resultswithin the time period is included. Protein, Total 7.5 6.0 - 8.3 gm/dL [facility] Albumin 3.7 3.5 - 5.0 g/dL [facility] Alkaline Phosphatase 94 40 - 150 U/L [facility] Total Bilirubin 0.9 0.2 - 1.2 mg/dL [facility] Sodium 141 136 - 145 meq/L [facility] Potassium 4.0 3.5 - 5.1 meq/L [facility] Chloride 110 (H) 98 - 107 meq/L [facility] CO2 23 22 - 29 meq/L [facility] BUN 10 7 - 21 mg/dL [facility] Creatinine 0.72 0.57 - 1.25 mg/dL [facility] Glucose 123 (H) 70 - 105 mg/dL [facility] Calcium 9.6 8.4 - 10.2 mg/dL [facility] H [facility] AST 28 5 - 34 U/L [facility] ALT 39 6 - 55 U/L [facility] EGFR 84Comment: ESTIMATED GFR mL/min/1.73 sq m [facility] IS NOT ACCURATE [facility] CREATININE CLEARANCE IN PREDICTING GLOMERULAR FILTRATION RATE. ESTIMATED GFR IS NOT APPLICABLE FOR DIALYSIS PATIENTS. Specimen Blood Narrative Performed At Cashier Gambling ID - PIAYA L [facility] Performing Organization Address City/State/Zipcode Phone Number [facility] [address] [place] [address] chest for pulmonary embolus (04/06/2020 4:30 PM CDT) Specimen Narrative Performed At FINAL REPORT Alerts [facility] Exam: CT pulmonary angiogram Clinical History: [...] MD Report Verified Date/Time:04/06/2020 16:45:26 Reading Location: [address] Reading Room Procedure Note Interface, External [...] Verified Date/Time: 04/06/2020 1 6:45:26 Reading Location: [address] Reading Room Performing Organization Address City/State/Zipcode Phone Number GE RIS aPTT (04/06/2020 1:47 PM CDT)Only the most recent of2 resultswithin the time period is included. PTT 31.0 22.5 - 36.[address] [facility] Specimen Blood Narrative Performed At 6 hours after starting heparin infusion and [facility] as indicated per sliding scale Performing Organization Address City/State/Zipcode Phone Number [facility] [address] [place] [address] CENTER Respiratory Panel [facility] (04/06/2020 9:15 AM CDT) Human Metapneumovirus Not detected Not detected, [facility] Rhinovirus Not detected Not detected, [facility] Influenza A Not detected Not detected, [facility] INFLUENZA A (NO SUBTYPE) [facility] ER Influenza A subtype H1 [facility] Influenza A Subtype H3 [facility] Influenza A Subtype H1-2009 [facility] Influenza B Not detected Not detected, [facility] [facility] Respiratory Syncytial Virus Not detected Not detected, [facility] Parainfluenza Virus 1 Not detected Not detected, [facility] Parainfluenza Virus 2 Not detected Not detected, [facility] Parainfluenza virus 3 Not detected Not detected, [facility] Parainfluenza Virus 4 Not detected Not detected, [facility] Adenovirus Not detected Not detected, [facility] Coronavirus 229E Not detected Not detected, [facility]ALTH [facility] Coronavirus HKU1 Not detected Not detected, [facility] [employer] [facility] Coronavirus NL63 Not detected Not detected, [facility] [employer] [facility] Coronavirus OC43 Not detected Not detected, [facility] Bordetella Pertussis Not detected Not detected, [facility] Chlamydophila Pneumoniae Not detected Not detected, [facility] [employer] [facility] Mycoplasma Pneumoniae Not detected Not detected, [facility] [employer] [facility] Specimen Nasopharyngeal Narrative Performed At Other viruses and bacteria not targeted by [facility] this PCR panel cannot be excluded; therefore clinical correlation and follow up of serology, culture results, and other molecular studies is required. The results are not intended to be used as the sole means for clinical diagnosis or patient management decisions. This sample was tested at the [facility] using the [employer] FilmArray Respiratory Panel. It is FDA cleared and has been verified and approved by the [facility] for clinical use on nasopharyngeal swab specimens. The performance of the FilmArray RP has not been established in individuals who received influenza vaccine.Recent administration of a nasal influenza vaccine may cause false positive results for Influenza A and/or Influenza B. Performing Organization Address City/State/Zipcode Phone Number [facility] [address] [place] [address] CENTER Urinalysis w/Microscopic + Reflex to Culture (04/05/2020 7:02 PM CDT)Only the most recent of2 resultswithin the time period is included. Color, UA Yellow [facility] Clarity, UA Clear [facility] Specific [place], UA 1.015 1.001 - 1.035 [facility] pH, UA 7.0 5.0 - 8.0 [facility] Protein, UA Negative Negative [facility] Glucose, UA Negative Negative [facility] Ketones, UA Negative Negative [facility] Bilirubin, UA Negative Negative [facility] Blood, UA Negative Negative [facility] Nitrite, UA Negative Negative [facility] Leukocytes, UA Moderate (A) Negative [facility] Urobilinogen, UA 6.0 (H) 0.2 - 1.0 mg/dL [facility] H EALTH [facility] RBC, UA <1 /HPF [facility] WBC, UA 14 /HPF [facility] Bacteria, UA Occasional [facility] Squam Epithel, UA 5 /HPF [facility] Specimen Source [facility] Specimen Urine Narrative Performed At Cashier Gambling ID - [auto] [facility] Cashier Gambling ID - ann Performing Organization Address City/State/Zipcode Phone Number [facility] [address] [place] [address] CENTER Urine culture (04/05/2020 7:02 PM CDT) Result >100,000 col/mL Escherichia coli [facility] (A) [facility] Specimen Urine Narrative Performed At <10,000 col/mL gram negative layla of a second [facility] type 40-49,000 col/mL skin krystin Organism Antibiotic [...] + Sulfamethoxazole >=320: Resistant Performing Organization Address [facility] Phone Number [address] [address] CENTER D-dimer (04/05/2020 6:48 PM CDT) D-Dimer, Quant 0.89 (H) <0.50 MG/L FEU [facility] Specimen Blood Narrative Performed At Intended Use: The D-Dimer Assay can be used [facility] to aid in the diagnosis of Deep Vein Thrombosis (DVT) and Pulmonary Embolism Disease (PED). In patients with low pre-test probability, various studies concerning STA Liatest D-dimer test have reported that with a cutoff value of 0.50 MG/L FEU, the Negative Predictive Value (NPV) regarding the exclusion of thrombosis is within 95-100% range. Performing Organization Address [facility] Phone Number [address] [address] CENTER Phosphorus (04/05/2020 6:48 PM CDT)Only the most recent of4 resultswithin the time period is included. Phosphorus 2.9 2.3 - 4.7 mg/dL [facility] Specimen Blood Narrative Performed At Cashier Gambling ID - DB [facility] Performing Organization Address [facility] [place] [facility] Phone Number [address] [address] CENTER Magnesium (04/05/2020 6:48 PM CDT)Only the most recent of4 resultswithin the time period is included. Magnesium 1.6 1.6 - 2.6 mg/dL [facility] Specimen Blood Narrative Performed At Cashier Gambling ID - DB [facility] Performing Organization Address [facility]/Zipcode Phone Number [facility] [address] [place] [address] CENTER SARS-CoV2/RT-PCR (Symptomatic ONLY) (04/05/2020 5:02 PM CDT)Only the most recent of2 resultswithin the time period is included. SARS-COV2/RT-PCR Not Detected Not Detected, Negative [facility] SARS-COV-2 PERFORMING LAB [facility] Specimen Other Narrative Performed At Negative results do not preclude SARS-CoV-2 [facility] infection and should not be used as [...] the Act. Fact Sheet for Healthcare Providers: https://www.dloHaiti/Documents/Xpert%20Xpre ss%20SARS%20CoV-2/Fact%20Sheets/082-8992%20SAR S-COV-2%20HEALTHCARE%20PROVIDERS%20FACT%20SHEE T.pdf Fact Sheet for Healthcare Patients: https://www.dloHaiti/Documents/Xpert%20Xpre ss%20SARS%20CoV-2/Fact%20Sheets/446-3801%20SAR S-COV-2%20PATIENT%20FACT%20SHEET.pdf Performing Laboratory: [facility] [address] [place] [address] Performing Organization Address City/State/Zipcode Phone Number [facility] [address] [place] [address] CENTER XR chest 1 view portable / [...] MD Report Verified Date/Time:04/05/2020 17:16:45 Reading Location: [address] [facility] Procedure Note Interface, External Ris [...] Verified Date/Time: 04/05/2020 1 7:16:45 Reading Location: [address] [facility] Reading Room Performing Organization Address City/State/Zipcode Phone Number GE RIS Lactic acid, venous (04/05/2020 4:24 PM CDT) Lactate, Venous 1.24 0.50 - 2.20 mmol/L [facility] Specimen Blood Narrative Performed At Cashier Gambling ID - DB [facility] CENTER Performing Organization Address City/State/Zipcode Phone Number [facility] [address] [place] [address] CENTER ECG 12 lead (04/05/2020 4:08 PM CDT)Only the most recent of3 resultswithin the time period is included. Specimen Narrative Performed At Ventricular Rate 119 BPM GE MUSE Atrial Rate 119 BPM P-R Interval 128 ms QRS Duration 84 ms Q-T Interval 308 ms QTC Calculation(Bazett) 433 ms P Salem 68 degrees R Salem 64 degrees T [place] 55 degrees Sinus tachycardia Otherwise normal ECG Confirmed by MD MCCABE MAJID ([id number]) on 020 11:22:13 AM Procedure Note Interface, External Ris In - 04/06/2020 11:22 AM CDT Ventricular Rate 119 BPM Atrial Rate 119 BPM P-R Interval 128 ms QRS Duration 84 ms Q-T Interval 308 ms QTC Calculation(Bazett) 433 ms P Salem 68 degrees R [place] 64 degrees T [place] 55 degrees Sinus tachycardia Otherwise normal ECG Confirmed by MD MCCABE MAJID ( [id number]) on 04/06/2020 11:22:13 AM Performing Organization Address [facility] Phone Number GE MUSE Hepatic function panel (04/04/2020 3:21 PM CDT)Only the most recent of3 results within the time period is included. Protein, Total 7.4 6.0 - 8.3 gm/dL [facility] Albumin 3.8 3.5 - 5.0 g/dL [facility] Total Bilirubin 1.4 (H) 0.2 - 1.2 mg/dL [facility] Bilirubin, Direct 0.7 (H) 0.1 - 0.5 mg/dL [facility] Alkaline Phosphatase 102 40 - 150 U/L [facility] AST 67 (H) 5 - 34 U/L [facility] ALT 40 6 - 55 U/L [facility] Specimen Blood Narrative Performed At Cashier Gambling ID - NTP [facility] Performing Organization Address City/State/Zipcode Phone Number [facility] [address] [place] [address] CENTER EKG-SCANNED (04/04/2020 1:41 PM CDT) Narrative Performed At This result has an attachment that is no t available. US abdomen limited (04/03/2020 5:45 AM CDT) Specimen Narrative Performed At FINAL REPORT [employer] History: Evaluate for cirrhosis Abdominal ultrasound dated [...] recommended. Signed: Gregorio Walker MD Report Verified Date/Time:04/03/2020 06:20:42 Procedure [...] 6:20:42 Performing Organization Address City/State/Zipcode Phone Number [employer] Hemoglobin A1c (04/03/2020 3:34 AM CDT) Hemoglobin A1C 6.0 4.3 - 6.1 % [facility] CENTER Specimen Blood Performing Organization Address City/State/Zipcode Phone Number [facility] [address] [place] [address] CENTER MR brain without IV contrast (04/02/2020 8:22 PM CDT) Specimen Narrative Performed At FINAL REPORT [employer] MR, BRAIN, WITHOUT CONTRAST INDICATION: Neuro deficit, [...] 1:14 PM CDT) Barbiturate Screen Negative Negative [facility] Benzodiazepine Screen Positive (A) Negative [facility] Cocaine (Metab.) Screen Negative Negative [facility] Methadone Screen [facility] Negative [facility] Opiate Screen Negative Negative [facility] Cannabinoid Screen Negative Negative [facility] Amph/Methamph Screen Negative Negative [facility] Phencyclidine Screen Negative Negative [facility] pH, UA 6.5 5.0 - 8.0 [facility] Specimen Urine Narrative Performed At DRUGCUTOFF [facility] CONC. Cocaine 300 ng/mL Aewyraskavo74 ng /mL Ybnxgbxzbxmxrz824 ng/mL Barbiturate 200 ng/m L Ofnuesayyffwa76 ng/m L Uptess939 ng/mL Methadone 300 ng /mL Amphetamine/ 1000 ng/mL Methamphetamine This assay provides an unconfirmed qualitative test result for the clinical management of patients in emergency situations. Chain of custody not maintained. Some pwph-gju-hlijote medications, as well as adulterants, may cause inaccurate results. Clinical correlation should be applied. A more comprehensive drug screen or confirmation of a detected drug may be performed upon request. Cashier Gambling ID - ADMIN Performing Organization Address [facility]/Zipcode Phone Number [address] [address] [place] Drug screen, urine, comprehensive (04/02/2020 1:12 PM CDT) Specimen Urine Narrative Performed At This result has an attachment that is no t available. Ammonia (04/02/2020 12:22 PM CDT) Ammonia 60 18 - 72 mol/L [facility] Specimen Blood Narrative Performed At Cashier Gambling ID - ABILIO Mota [facility] Performing Organization Address [facility] Cent[facility] Phone Number [address] [address] [place] Blood culture (04/02/2020 12:08 PM CDT)Only the most recent of2 resultswithin the time period is included. Result No growth in [address] [facility] Specimen Blood Performing Organization Address [facility]/Zipcode Phone Number [address] [address] [place] EEG 12-26 HR Continuous Monitoring with Video (04/02/2020 6:32 AM CDT) Specimen Narrative Performed At Date of EE04/01/2020 to 04/02/2020 GE RIS DATE OF REPORT:04/02/2020 ACC: [id number] EEG Number: [id number] Start time: 04/01/2020 @ 14:41 PM Stop time: 04/02/2020 @ 11:30 AM ICD-10: R56.9 CPT Code: 65396 HISTORY: 54 y.o. Female with ADHD, bipol ar disorder, breast cancer, and hepatitis who was transferred due to concern for seizures requiring intubation. MEDICATIONS: No anti-seizure medications . TECHNICAL SUMMARY: This is a digital video-EEG recorded wit h 32 input channels reviewed with bipolar and referential montages us ing the modified Payteller system nomenclature. DESCRIPTION OF RECORD: During the [...] to 04/02/2020 DATE OF REPORT: 04/02/2020 ACC: [id number] EEG Number: [id number] Start time: 04/01/2020 @ 14:41 PM Stop time: 04/02/2020 @ 11:30 AM ICD-10: R56.9 CPT Code: 67491 HISTORY: 54 y.o. Female with ADHD, bipol ar disorder, breast cancer, and hepatitis who was transferred due to concern for seizures requiring intubation. MEDICATIONS: No anti-seizure medications . TECHNICAL SUMMARY: This is a digital video-EEG recorded wit h 32 input channels reviewed with bipolar and referential montages us ing the modified Payteller system nomenclature. DESCRIPTION OF RECORD: During the [...] its interpretation. Freedom Mckay MD Epilepsy Attending Performing Organization Address [facility] [place] [facility] Phone Number RIS Vitamin B12 and Folate (04/01/2020 2:13 PM CDT) Vitamin B12 929 (H) 213 - 816 pg/mL [facility] Folate 15.80 >=7.00 ng/mL [facility] Specimen Blood Narrative Performed At Cashier Gambling ID - NTP [facility] Performing Organization Address [facility] Phone Number [address] [address] CENTER TSH/Free T4 If Indicated (04/01/2020 2:13 PM CDT) TSH 0.057 (L) 0.350 - 4.940 uIU/mL [facility] Specimen Blood Narrative Performed At Cashier Gambling ID - [facility] CENTER Performing Organization Address [facility] Phone Number [address] [address] CENTER T4, free (04/01/2020 2:13 PM CDT) Free T4 1.19 0.70 - 1.48 ng/dL [facility] Specimen Blood Narrative Performed At [employer]ier G[employer] ID - NTP [facility] Performing Organization Address City/[facility] Phone Number [facility] [address] [place] [phone] CENTER PT/aPTT (04/01/2020 5:08 AM CDT) Protime 15.4 (H) 11.9 - 14.[address] [facility] INR 1.3 <=5.9 [facility] PTT 25.8 22.5 - 36.[address] [facility] Specimen Blood Narrative Performed At Effective 04/05/2019: PT Reference Range [facility] Change New: 11.9-14.2Previous: 11.7-14.7 RECOMMENDED COUMADIN/WARFARIN INR THERAPY RANGES STANDARD DOSE: 2.0-3.0Includes: PROPHYLAXIS for venous thrombosis, systemic embolization; TREATMENT for venous thrombosis and/or pulmonary embolus. HIGH RISK: Target INR is 2.5-3.5 for patients wiht mechanical heart valves. Performing Organization Address City/[facility] Phone Number [address] [address] CENTER Troponin I (04/01/2020 5:08 AM CDT) Troponin I 0.01 0.00 - 0.03 ng/mL [facility] Specimen Blood Narrative Performed At Troponin I (TnI) levels must be interpreted [facility] in the context of the presenting symptoms and the clinical findings. Elevated TnI levels indicate myocardial damage, but are not specific for ischemic heart disease. Elevated TnI levels are seen in patients with other cardiac conditions (including myocarditis and congestive heart failure), and slight TnI elevations occur in patients with other conditions, including sepsis, renal failure, acidosis, acute neurological disease, and persistent tachyarrhythmia. [employer] ID - NTP Performing Organization Address City/State/Zipcode Phone Number [facility] [address] [place] [address] CENTER Creatine Kinase (CK) (04/01/2020 5:08 AM CDT) Total CK 79 29 - 200 U/L [facility] CENTER Specimen Blood Narrative Performed At Cashier G[employer] ID - ZAHRA Bettencourt [facility] Performing Organization Address City/[facility]/Zipcode Phone Number [facility] [address] [place] [address] [place] ECG/EKG Interpretation (04/01/2020 4:51 AM CDT) Narrative Performed At Glendy Clayton MD 04/15/20203:33 PM ECG/EKG Interpretation Date/Time: 04/15/2020 3:33 PM Performed by: Glendy Clayton MD Authorized by: Arturo Downs MD The ECG was interpreted by ED physician. The ECG is in terpreted as sinus tachycardia. Rate is tachycardic. Heart rate is [address] segments normal. T waves normal. [place] is normal. Other findings include: prolonged QTc [...] the fo llowing conditions: respiratory failure and FEATHER SAWYER failure or compromise. Critical care was time [...] studies and re-evaluation of patient's condition. after 08/14/2019 Insurance Payer Benefit Plan / Group Subscriber ID Type Phone A ddress MEDICARE MEDICARE A B xxxxxxxxxxx Medicare [place] MEDICAID MEDICAID [place] xxxxxxxxx CDC REVIEW CDC REVIEW [address] [place] [address] MEDICAID MEDICAID [facility] xxxxxxxxx Medicaid Advance Directives For more information, please contact:[facility] [place], [place] [phone] Code Status Date Activated Date Inactivated Comments Full Code 04/01/2020 6:44 AM 04/16/2020 10:45 AM This code status was determined by: Patient Full Code 04/22/2016 12:20 PM 04/29/2016 5:47 PM This code status was determined by: Patient
--- OUTSIDE RECORDS SUMMARY | 2020-08-14 15:34 | XMS REPORT ---
[...] End Status Dosage System Date Date Paxil [facility] 79100753009 40 MG Orally Active 1 table t in Once a day the morning Adderall [facility] 15867815179 20 MG Orally Active 1 tabl et Twice a day Risperdal [facility] 87031321661 2 MG Orally Active 1 tabl et Twice a day FreeStyle [facility] 44942115910 - subcutaneous Jun 13, Active as directed Roxy 14 Day Test BS three 2019 Sensor times daily + prn Metformin HCl [facility] 20626947507 500 MG Orally Jun 13, Active 1 tablet Twice a day 2019 with a meal FreeStyle [facility] 01425936385 - as directed Jun 13, Active as d irected Roxy Sabina Check BS three 2019 times daily + prn [place] [facility] 04260589828 300 MG Orally Active (450 m g) 1 Carbonate Once a day capsule Levemir [facility] 08750347050 100 UNIT/ML Jun 13, Active as direc jassi FlexTouch Subcutaneous 20 2020 units once daily in am Pen [place] [facility] 18421961082 32G X 5 MM Jun 13, Active as di rected subcutaneous use 2019 as directed with Levemir FlexTouch once daily Quetiapine [facility] 30661877436 300 MG Orally Active 1 t ablet at Fumarate Once a day bedtime Klonopin [facility] 03586177995 1 MG Orally TID Active 1 t ablet Results Name Result Date Reference Range Unit Abnormali ty Flag GLUCOSE FINGER ----Result [id number] Summary Purpose eClinicalWorks Submission
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
--- OUTSIDE RECORDS SUMMARY | 2020-08-14 15:34 | XMS REPORT | Continuity of Care Document ---
:1965 Author Organization [facility] t Address [address] Baker [address] [place] [address] Care Team Providers Name Role Phone JANEEN Primary Care Physician Unavailable Sam BAER Attending Clinician Unavailable JANEEN Attending Clinician Unavailable MARIA M [...] Clinician Unavailable Roger KHALIL Attending Clinician Willy BAER Sg. Attending Clinician Noel RN, B Attending Clinician Unavailable Perez Abrams NP, A. Attending Clinician MARKO CORDOVA M.D. Attending Clinician Unavailable DENISSE Admitting Clinician Unavailable MARKO CORDOVA M.D., M Admitting Clinician Unavailable Payers Payer Name Policy Policy Number Effective Expiration Source Type Date Date MEDICAREMEDICARE PART A [id number] 2005 MD Hawley AND 00:00:00 [id number] 2004-Pres [id number], [facility] [place] [id number] 2018 MD Juan Antonio melendez TRADITIONALMEDICAID [place] 00:00:00 TRADITIONAL STAR PLUS [id number] entMedicaid MEDICAREMEDICARE A xxxxxxxxxxx [facility] PEDRAZA MEDICAIDMEDICAID xxxxxxxxx [facility] MOLINAxxxxxxxxx [facility] CDC REVIEWCDC xxxxxxxx [place] [place] [address] [facility] MEDICAIDMEDICAID OF xxxxxxxxx [facility] t [place]xxxxxxxxx[place]icaid [facility] Problems Condition Condition Condition Status Onset Resolution Last Treating Co mments Source Name Details Category Date Date Treatment Clinician Date E-coli UTI E-coli UTI Disease Active [facility] 00 [place] Tobacco Tobacco Disease Active [facility] abuse [facility] 04-04 [facility] 00 [place] History of History of Disease Active Overview : [facility] hepatitis hepatitis 04-02 Overview: L ukes - C C 00:00: Per ID Medical 00 team: Center "She denies blood transfusi on before 1991, but she recalled using dilaudid IV by herself and possible sharing needles." Completed 12 weeks of Harvoni under care of Dr. Manley in January 2019. 528 9 08:25HepC RNA PCR Qnt[place] Undetecte d IU/mL (Undetec jassi) Witnessed Witnessed Disease Active [facility] seizure-li seizure-li 04-01 Keyla kes - ke ke 00:00: Medical activity activity 00 Center Anxiety Anxiety Disease Active [facility] and and 04-01 [facility] - depression depression 00:00: Me dical 00 Center Obesity Obesity Disease Active [facility] (BMI (BMI - [facility] - 30-39.9) 30-39.9) 00:00: Medica l 00 Center Hypertensi Hypertensi Disease Active [facility] on on 05-31 [facility] - 00:[facility]: Medical 00 Center Impaired Impaired Disease Active Overview: glucose glucose 05-30 Formattin Goerges so tolerance tolerance 00:00: g of this n 00 note might be different from the original. Lab Results Component Value Date A1C 5.8 (H) 9 A1C 5.6 7 Osteoarthr Osteoarthr Disease Active Overview : [facility] itis itis 05-29 Overview: Aquiles - 00:00: 2015:IMPR Medical 00 ESSION:1. Center [...] - on on 00:00: Medical 00 9:Hepatos [facility]. There are findings suggestiv e of portal hypertens ion. Generalize Generalize Disease Active M D d anxiety d anxiety 05-03 Douglas rso disorder disorder 00:00: n 00 [...] (L) 9 Obesity Obesity Disease Active Overview: - Whitney Anderso 00:00: g of this n 00 [...] 2016-11 carcinoma carcinoma 2-05 [place] rso of central of [place] 00:00: n portion of portion of 00 left left female female breast breast Estrogen Estrogen Disease Active 2016-11 MD receptor receptor 2-05 Shahab o positive positive 00:00: n status status 00 (ER+) (ER+) Estrogen Estrogen Disease Active 2016-11 [facility] receptor receptor 2-05 [facility] - positive positive 00:00: Medica l status status 00 Center (ER+) (ER+) Malignant Malignant Disease Active 2016-[address] [facility] neoplasm neoplasm 2-05 [facility] - [facility] 00:00: Me dical portion of portion of 00 Ce nter left left female female breast breast Severe Severe Disease Active 2005-[address] bipolar I bipolar I -11 Luke s - disorder, disorder, 00:00: Medi shelley current or current or 00 Ce nter most most recent recent episode episode depressed depressed Adjustment Adjustment Disease Active 2005-[address] disorder disorder -11 [facility] - with with 00:00: Medical depressed depressed 00 Cent er mood mood History of Past Illness Condition Condition Condition Status Onset Resolution Last Treating Co mments Source Name Details Category Date Date Treatment Clinician Date Leukocytos Leukocytos Disease Resolve 2020-04-08 2020-04-[address] is is d 5-28 00:00:00 13:20:47 [facility] - 00:[facility]: Medical 00 [place] Shortness Shortness Disease Resolve 2020-04-08 2020-04-[address] of breath of breath d 6-15 00:00:00 13:20:50 [facility] - 00:00: Medical 00 [place] Abnormal Abnormal Disease Resolve 2019-11-27 2019-11-27 findings findings d 7-24 00:00:00 23:25:42 An derso on on 00:00: n cytologica cytologica 00 l and l and histologic histologic al al examinatio examinatio n of urine n of urine Altered Altered Disease Resolve 2019-11-27 2019-11-27 mental mental d 7- 00:00:00 23:25:49 Shahab o status status 00:00: n 00 Delirium Delirium Disease Resolve 2019-11-27 2019-11-27 d 9- 00:00:00 23:25:58 Shahab o 00:00: n 00 [...] deconditio deconditio d 00:00:00 18:07:31 Anderso seth ann n Allergies, Adverse Reactions, Alerts This patient has no known allergies or adverse reactions. Family History Family Member Diagnosis Comments Start Date Stop Date Source Family member -Breast cancer MD Douglas couch Family member Ovarian cancer MD Douglas couch Social History Social Habit Start Date Stop Date Quantity Comments Source Sex Assigned At [facility] Tobacco use and 2019-11-23 2019-11-23 Never used [...] Source Current every day smoker 2020-04-01 00:00:00 [facility] Medications Ordered Filled Start Stop Current Ordering Indication Dosage Frequency Signature Comments Components Source Medication Medication Date Date Medication? Clinician (SIG) Name Name FreeStyle FreeStyle 2020-0 Yes Lea as [facility] Roxy 14 Roxy 14 8-06 Millender directed [facility] - Day Sensor Day Sensor 00:00: M emoria 00 l [facility] Metformin Metformin 2020-0 Yes Lea [address] HCl HCl 8-06 Millender with a [facility] - 00:00: meal Memoria 00 l [facility] FreeStyle FreeStyle 2020-0 Yes Lea as [facility] Roxy Roxy 8-06 Millender directed Luke s - [place] 00:00: Memoria 00 [facility] ent Clinics Levemir Levemir 2020-0 Yes Lea as [facility] FlexTouch FlexTouch 8-06 Millender directed [facility] - 00:00: Memoria 00 l [facility] Pen [place] 2020-0 Yes Lea as [facility] 8-06 Millender directed [facility] - 00:00: Memoria 00 l [facility] anastrozole 2020-0 Yes Mucinous TAKE 1 MD (ARIMIDEX) 7-07 carcinoma TABLET BY Juan Antonio 1 mg tablet 00:00: of central MOUTH n 00 portion of EVERY DAY left female breast acetaminoph 2020-0 Yes 1{tbl} Take 1 en-codeine 6-23 tablet by Douglas avina (TYLENOL-CO 14:39: mouth 2 n DEINE #3) 39 (two) 300 mg-30 times a mg tablet day as needed for moderate pain. albuterol 2019-0 Yes 1{puff} Inhale 1-2 MD (VENTOLIN 6-23 puffs by Shahab o HFA,PROAIR 14:39: mouth n HFA) 90 39 every 4 mcg/puff (four) inhaler hours as needed for wheezing or shortness of breath. QUEtiapine 2019-0 Yes 200mg Q.5D Take [address] (SEROQUEL) 6-08 tablets [facility] - 50 MG 00:00: (200 mg Medical tablet 00 total) by Center mouth 2 (two) times daily. lithium 150 2019- Yes 600mg Take [address] MG capsule 6-08 capsules [facility] - 00:00: (600 mg Medical 00 total) by Center mouth 2 (two) times daily with breakfast and dinner. albuterol 2019-2020- No 2{puff} Inhale [address] [facility] HFA 6-08 06-08 puffs by [facility] - (VENTOLIN 00:00: 23:59 mouth via Me dical HFA) 90 00 :00 inhaler Center mcg/actuati every 6 on inhaler (six) hours as needed for Wheezing. lithium 150 2019-2019- No 450mg Take [address] MG capsule 6-08 06-08 capsules Luke s - 00:00: 00:00 (450 mg Medical 00 :00 total) by Center mouth 2 (two) times daily with breakfast and dinner. QUEtiapine 2020- No 150mg Q.5D Take [address] (SEROQUEL) 6-07 06-08 tablets [facility] - 50 MG 00:00: 00:00 (150 mg Medical tablet 00 :00 total) by Center mouth 2 (two) times daily. FLUoxetine 2019- 2020- No 20mg QD Take [address] [facility] (PROZAC) 20 6- 06-06 by mouth Oj es - MG tablet 16:40: 00:00 daily. Medic al 14 :00 Center acetaminoph 2020-0 Yes 1{tbl} Take [address] en-codeine 6-06 tablet by Luke s - (TYLENOL 13:31: mouth Medical #3) 300-30 13 every 8 Center mg per (eight) tablet hours as needed (severe pain) . umeclidiniu Yes 1{puff} QD Inhale [address] m-vilantero 6-06 puff by Aquiles - L (ANORO 13:30: mouth via Medi shelley ELLIPTA) 38 inhaler Center 62.5-25 daily. mcg/actuati on DsDv clonazePAM 2019- No 2mg Take [address] (KLONOPIN) 04-13-06 by mouth 2 Keyla kes - 2 MG tablet 13:29: 00:00 (two) Medi shelley 33 :00 times Center daily as needed for Anxiety. dextroamphe 2020- No dextroamph [facility] tamine-amph 04-13- etamine-am L ukes - etamine 13:29: 00:00 phetamine [facility] (ADDERALL) 33 :00 20 mg Center 20 mg Tab tablet tablet HYDROcodone 2020- No Take by I St -acetaminop 04-13- mouth. Keylakes - hen 13:29: 00:00 Medical (VICODIN) 33 :00 Center 5-300 mg Tab QUEtiapine 2019- No 100mg QD Take [address] (SEROQUEL) 04-13- mg by [facility] - 100 MG 13:28: 00:00 mouth Medical tablet 37 :00 nightly. Center FLUoxetine 2019- No 10mg QD Take [address] (PROZAC) 10 04-13-08 tablet (10 L ukes - MG tablet 00:00: 00:00 mg total) Me dical 00 :00 by mouth Center daily. anastrozole Yes 1mg QD Take [address] (ARIMIDEX) 5-30 by mouth [facility] - 1 mg tablet 17:03: daily. Medi shelley 13 Center topiramate 0 2020- No 50mg Q.5D Take [address] [facility] (TOPAMAX) 5-25 05-25 by mouth 2 Oj es - 50 MG 05:02: 00:00 (two) Medical tablet 48 :00 times Center daily. pregabalin 0 2020- No 50mg Q.[id number] Take [address] (LYRICA) 50 5-25 05-25 [id number] by mouth 3 [facility] - MG capsule 05:02: 00:00 3D (three) Med ical 44 :00 times Center daily. lithium 150 2019-0 2020- No 300mg Take [address] MG capsule 5-25 05-25 mg by [facility] - 05:02: 00:00 mouth. Medical 34 :00 Center dextroamphe 2019-0 2020- No 10mg Take [address] tamine-amph 5-25 05-25 by mouth. Keyla kes - etamine 5 05:01: 00:00 Medical mg Tab 52 :00 Center FLUOXETINE, 2019- No 40mg [address] BULK, MISC 5-25 05-25 Miscellane Keyla kes - 05:01: 00:[address] Medical 48 :00 . [place] dextroamphe 0 2020- No 20mg Take 20 mg MD tamine-amph [...] 00:00: 00:00 tablet Medical tablet 00 :00 [place] anastrozole 2019- No Mucinous 1mg Take 1 [...] No lithium [facility] MG capsule 04-2008 carbonate Oj es - 00:00: 00:00 300 mg Medical 00 :00 capsule [place] Paxil Paxil Yes Lea [address] Millender in the [facility] - [facility] Adderall Adderall Yes Lea [address] Millender [facility] Risperdal Risperdal Yes Lea [address] [facility] [place] Yes Lea (450 mg) [address] Carbonate Carbonate Millender capsule [facility] Quetiapine Quetiapine Yes Lea [address] Fumarate Fumarate Millender [facility] Klonopin Klonopin Yes Lea [address] [facility] Vital Signs Vital Name Observation Time Observation Value Comments Source Systolic blood 2020-04-16 06:55:00 115 mm[Hg] [facility] Diastolic blood 2020-04-16 06:55:00 75 mm[Hg] [facility] Heart rate 2020-04-16 06:55:00 104 /min [facility] Body temperature 2020-04-16 06:55:00 36.39 Mansi [facility] Respiratory rate 2020-04-16 06:55:00 16 /min [facility] Oxygen saturation in 2020-04-16 06:55:00 93 /min [facility] - Arterial blood by Medical Ce nter Pulse oximetry Body weight Measured 2020-04-04 10:17:00 91.899 kg [facility] BMI 2020-04-04 10:17:00 35.45 kg/m2 [facility] Body height 2020-04-01 13:00:00 161 cm [facility] Heart rate 2019-11-23 17:10:00 93 /min MD Georges jarrett Body temperature 2019-11-23 17:10:00 36.72 Mansi MD Hernan duncan Respiratory rate 2019-11-23 17:10:00 18 /min MD Hernan duncan Body weight 2019-11-23 17:10:00 92.8 kg MD Georges jarrett BMI 2019-11-23 17:10:00 35.80 kg/m2 MD Georges jarrett Procedures Procedure Date / Time Performing Clinician Source Performed RHYTHM STRIP - SCAN 2020-04-17 15:11:17 Provider, Roshni [facility] POCT-GLUCOSE METER 2020-04-15 22:05:00 Arturo [place] [facility] POCT-GLUCOSE METER 2020-04-15 12:44:00 Yareli Arturo [facility] POCT-GLUCOSE METER 2020-04-15 08:15:00 Yareli Arturo [facility] POCT-GLUCOSE METER 2020-04-14 21:19:00 Samantha Lanier [facility] POCT-GLUCOSE METER 2020-04-13 17:03:00 Lanier, [facility] PO[facility]-GLUCOSE METER 2020-04-13 11:55:00 Lanier, Samantha [facility] POCT-GLUCOSE METER 2020-04-13 08:22:00 [facility] POCT-GLUCOSE METER 2020-04-12 20:48:00 [facility] POCT-GLUCOSE METER 2020-04-12 17:18:00 [facility] POCT-GLUCOSE METER 2020-04-12 12:10:00 [facility] POCT-GLUCOSE METER 2020-04-12 08:32:00 Lanier, [facility] LITHIUM LEVEL 2020-04-12 04:26:00 LeeannaJairo Carlton [facility] POCT-GLUCOSE METER 2020-04-11 21:49:00 Lanier, [facility] POCT-GLUCOSE METER 2020-04-11 16:42:00 Lanier, [facility] POCT-GLUCOSE METER 2020-04-11 10:52:00 [facility] POCT-GLUCOSE METER 2020-04-11 06:55:00 Lanier, [facility] POCT-GLUCOSE METER 2020-04-10 20:46:00 Lanier, [facility] POCT-GLUCOSE METER 2020-04-10 17:42:00 Lanier, [facility] POCT-GLUCOSE METER 2020-04-10 11:07:00 Lanier, [facility] POCT-GLUCOSE METER 2020-04-10 07:12:00 Lanier, [facility] BASIC METABOLIC PANEL (7) 2020-04-10 03:58:00 Lanier, [facility] CBC W/PLT COUNT & AUTO 2020-04-10 03:58:00 Lanier, Samantha [facility]askins [facility] POCT-GLUCOSE METER 2020-04-09 21:30:00 Lanier, Samantha Haskins [facility] POCT-GLUCOSE METER 2020-04-09 17:05:00 Lanier, Samantha Haskins [facility] POCT-GLUCOSE METER 2020-04-09 07:13:00 Lanier, Samantha Haskins [facility] LITHIUM LEVEL 2020-04-09 04:06:00 Lanier, Samantha Haskins [facility] POCT-GLUCOSE METER 2020-04-08 21:22:00 Lanier, [facility] POCT-GLUCOSE METER 2020-04-08 18:08:00 Lanier, [facility] POCT-GLUCOSE METER 2020-04-08 12:36:00 Lanier, Samantha Haskins [facility] COMPREHENSIVE METABOLIC 2020-04-08 03:42:00 [facility] CBC W/PLT COUNT & AUTO 2020-04-08 03:42:00 [facility] POCT-GLUCOSE METER 2020-04-07 21:08:00 [facility] POCT-GLUCOSE METER 2020-04-07 17:20:00 [facility] POCT-GLUCOSE METER 2020-04-07 12:02:00 [facility] POCT-GLUCOSE METER 2020-04-07 07:55:00 [facility] COMPREHENSIVE METABOLIC 2020-04-07 04:24:00 [facility] CBC W/PLT COUNT & AUTO 2020-04-07 04:24:00 [facility] POCT-GLUCOSE METER 2020-04-06 21:01:[address] [facility] CT CHEST PE TEST DESIGN 2020-04-06 16:30:[address] [facility] 2020-04-06 13:47:00 [facility] POCT-GLUCOSE METER 2020-04-06 11:56:00 [facility] RESPIRATORY PANEL [facility] 2020-04-06 09:15:00 [facility] POCT-GLUCOSE METER 2020-04-06 07:41:00 [facility] COMPREHENSIVE METABOLIC 2020-04-06 03:34:00 [facility] APTT 2020-04-06 03:34:00 [facility] CBC W/PLT COUNT & AUTO 2020-04-06 03:34:00 [facility] POCT-GLUCOSE METER 2020-04-05 23:20:00 [facility] URINE CULTURE 2020-04-05 19:02:00 [facility] URINALYSIS W/ REFLEX URINE 2020-04-05 19:02:00 [facility] D-DIMER 2020-04-05 18:48:00 [facility] BASIC METABOLIC PANEL (7) 2020-04-05 18:48:00 [facility] MAGNESIUM 2020-04-05 18:48:00 [facility] PHOSPHORUS 2020-04-05 18:48:00 [facility] CBC W/PLT COUNT & AUTO 2020-04-05 18:48:00 [facility] SARS-COV2/RT-PCR ([facility] & 2020-04-05 17:02:00 Melody [facility] - REF LABS) [facility] POCT-GLUCOSE METER 2020-04-05 16:51:00 [facility] XR CHEST 1 VIEW 2020-04-05 16:46:00 [facility] PORTABLE/BEDSIDE [facility] LACTIC ACID, VENOUS 2020-04-05 16:24:00 [facility] ECG 12-LEAD 2020-04-05 16:08:18 [facility] ECG 12-LEAD 2020-04-05 13:27:01 [facility] POCT-GLUCOSE METER 2020-04-05 11:22:00 [facility] POCT-GLUCOSE METER 2020-04-05 08:11:00 [facility] POCT-GLUCOSE METER 2020-04-04 20:58:00 [facility] POCT-GLUCOSE METER 2020-04-04 17:52:00 [facility] HEPATIC FUNCTION PANEL 2020-04-04 15:21:00 [facility] CBC W/PLT COUNT & AUTO 2020-04-04 15:20:00 [facility] DIFFERENTIAL [facility] REPORT OF PROCEDURE - 2020-04-04 13:41:29 Provider, [facility] - ENDOSCOPY SCAN [facility] POCT-GLUCOSE METER 2020-04-04 11:41:00 [facility] POCT-GLUCOSE METER 2020-04-04 08:55:00 [facility] BASIC METABOLIC PANEL (7) 2020-04-04 05:30:00 Chantell Larson CH, I [facility] MAGNESIUM 2020-04-04 05:30:00 [facility] PHOSPHORUS 2020-04-04 05:30:00 [facility] CBC W/PLT COUNT & AUTO 2020-04-04 05:30:00 Kirit De La Cruz [facility] POCT-GLUCOSE METER 2020-04-03 21:53:00 [facility] POCT-GLUCOSE METER 2020-04-03 17:49:00 [facility] POCT-GLUCOSE METER 2020-04-03 11:26:00 [facility] POCT-GLUCOSE METER 2020-04-03 07:24:00 [facility] US ABDOMEN LIMITED 2020-04-03 05:45:00 [facility] HEPATIC FUNCTION PANEL 2020-04-03 03:34:00 [facility] BASIC METABOLIC PANEL (7) 2020-04-03 03:34:00 Chantell Larson CH, I [facility] MAGNESIUM 2020-04-03 03:34:00 [facility] PHOSPHORUS 2020-04-03 03:34:00 [facility] HEMOGLOBIN A1C 2020-04-03 03:34:00 [facility] CBC W/PLT COUNT & AUTO 2020-04-03 03:34:00 Kirit De La Cruz [facility] POCT-GLUCOSE METER 2020-04-02 21:09:00 [facility] MR BRAIN WITHOUT IV 2020-04-02 20:22:00 Lorene Mcclure [facility] POCT-GLUCOSE METER 2020-04-02 17:17:00 [facility] RAPID DRUG SCREEN, URINE 2020-04-02 13:14:00 Lorene Mcclure [facility] DRUG SCREEN, URINE, 2020-04-02 13:12:00 Lorene Mcclure [facility] AMMONIA 2020-04-02 12:22:00 Denisse [facility] BLOOD CULTURE 2020-04-02 12:08:00 Denisse [facility] POCT-GLUCOSE METER 2020-04-02 11:00:00 Micheal Melody [facility] POCT-GLUCOSE METER 2020-04-02 08:33:00 Micheal [facility] EEG 12-26 HR CONTINUOUS 2020-04-02 06:32:00 Forrest Alexymelodie [facility] - MONITORING WITH VIDEO Medical Ce nter BASIC METABOLIC PANEL (7) 2020-04-02 04:43:00 Chantell Larson CH I [facility] CBC W/PLT COUNT & AUTO 2020-04-02 04:43:00 Denisse [facility] POCT-GLUCOSE METER 2020-04-02 01:53:00 Denisse [facility] POCT-GLUCOSE METER 2020-04-01 20:44:00 [facility] 2020-04-01 18:46:00 Denisse [facility] POCT-GLUCOSE METER 2020-04-01 17:57:00 [facility] TSH/FREE T4 IF INDICATED 2020-04-01 14:13:00 Denisse [facility] VITAMIN B12 AND FOLATE 2020-04-01 14:13:00 Denisse [facility] LITHIUM LEVEL 2020-04-01 14:13:00 [facility] T[facility], FREE 2020-04-01 14:13:00 [facility] BLOOD CULTURE 2020-04-01 14:11:00 Denisse [facility] POCT-GLUCOSE METER 2020-04-01 12:22:00 [facility] ECG 12-LEAD 2020-04-01 08:31:07 [facility] SARS-COV2/RT-PCR ([facility] & 2020-04-01 05:24:00 Forrest, [facility] REF LABS) [facility] BASIC METABOLIC PANEL (7) 2020-04-01 05:08:00 Forrest, [facility] CH I [facility] MAGNESIUM 2020-04-01 05:08:00 Forrest, [facility] CREATINE KINASE (CK) 2020-04-01 05:08:00 Forrest, [facility] PHOSPHORUS 2020-04-01 05:08:00 Forrest, [facility] PT/APTT 2020-04-01 05:08:00 Forrest, [facility] TROPONIN I 2020-04-01 05:08:00 [facility] CBC W/PLT COUNT & AUTO 2020-04-01 05:08:00 Forrest, [facility] URINALYSIS W/ REFLEX URINE 2020-04-01 05:04:00 Forrest, [facility] C [facility] XR CHEST 1 VIEW 2020-04-01 04:58:00 Forrest, [facility] CRITICAL CARE 2020-04-01 04:51:54 Forrest, [facility] ED ECG INTERPRETATION 2020-04-01 04:51:54 [facility], [facility] Encounters Start End Encounter Admission Attending Care Care Encounter Source Date/Time Date/Time Type Type Clinicians Facility Department ID 2020-08-07 2020-08-07 [id number] 2020-07-09 2020-07-09 [facility] [id number] [facility] 2020-06-13 2020-06-13 [facility] [id number] 11:00:00 11:00:00 [facility] Medicine l Medicine Outpati ent Clinics 2020-05-24 2020-05-24 Outpatient WAILDA VERNON MDA MDA [id number] 00:00:00 00:00:00 NEDAJOSE DE JESUS Su jeancarlos melendez 2020-05-23 2020-05-23 Outpatient AWILDA VERNON MDA MDA [id number] MD 00:00:00 00:00:00 NEDA Georgesjaguar melendez 2020-05-13 2020-05-13 Outpatient AWILDA SULLIVAN MDA MDA [id number] 00:00:00 00:00:00 FAUSTINO melendez 2020-05-07 2020-05-07 Outpatient AWILDA VERNON MDA MDA [id number] 00:00:00 00:00:00 NEDA Georgesjaguar melendez 2020-05-07 2020-05-07 Outpatient AWILDA VERNON MDA MDA [id number] 00:00:00 00:00:00 NEDA melendez 2020-04-30 2020-04-30 Outpatient AWILDA POLANCO MDA MDA [id number] 09:15:00 23:59:00 LAMBERTO melendez 2019-10-18 2019-10-18 [facility] [id number] [facility] 08:20:00 08:20:00 [facility] 2019-10-10 2019-10-10 [facility] [id number] [facility] [address] 16:00:00 16:00:00 [facility] Results Test Description Test Time Test Comments Results Result Comments Source POC-Glucose meter 2020-04-15 22:17:00 Test Item Value Reference Range Interpretation Comme nts POC-Glucose Meter (test code = 124 mg/dL 70-110 H : TESTED AT [facility] [address] 1538) [facility], [facility] 30: Water Truck Driver/Techni janel ID = [id number] for RAY ERVIN Lab Interpretation (test code = Abnormal 74680-9) [facility] [id number] 22:17:00 Test Item Value Reference Range Interpretation Comments POC-GLUCOSE METER 124 mg/dL 70-110 H : TESTED A T [facility] 6720 ([facility]) (test code = [facility], 1538) [address]: Water Truck Driver/Techni janel ID = [id number] for RAY MCCLELLAN POCT-GLUCOSE [id number] 12:55:00 Test Item Value Reference Range Interpretation Comments POC-GLUCOSE METER 189 mg/dL 70-110 H : [facility] (test code = [facility], 153) [address]: Water Truck Driver/Techni janel ID = [id number] for HI DALGO, AGLAE POCT-GLUCOSE [id number] 08:26:00 Test Item Value Reference Range Interpretation Comments POC-GLUCOSE METER 123 mg/dL 70-110 H : [facility]) (test code = [facility], 153) [address]: Water Truck Driver/Techni janel ID = [id number] for JOE BINGHAM POCT-GLUCOSE [id number] 21:31:00 Test Item Value Reference Range Interpretation Comments POC-GLUCOSE METER 176 mg/dL 70-110 H : Notified RN/MD: ([facility]) (test code = TESTED AT [facility] 6720 1538) [facility], [address]: Water Truck Driver/Techni janel ID = [id number] for ZAYDA LANDON ICE [place] [id number] 11:45:00 Test Item Value Reference Range Interpretation Comments [place] Level (test code = 0.6 mmol/L 0.8-1.2 L 02753-6) Lab Interpretation (test code = Abnormal 72222-9) [facility] [id number] 11:45:00 Test Item Value Reference Range Interpretation Comments LITHIUM LEVEL ([facility]) (test code 0.6 mmol/L 0.8-1.2 L = 630) POCT-GLUCOSE [id number] 17:15:00 Test Item Value Reference Range Interpretation Comments POC-GLUCOSE METER 128 mg/dL 70-110 H : [facility]) (test code = [facility], 153) [address]72: Water Truck Driver/Techni janel ID = [id number] for HI DALGO, AGLAE POCT-GLUCOSE [id number] 12:20:00 Test Item Value Reference Range Interpretation Comments POC-GLUCOSE METER 108 mg/dL 70-110 : TESTED A T [facility] 6720 (BEAKER) (test code = [facility], 1538) [address]: Water Truck Driver/Techni janel ID = [id number] for Sm ith, Elaina POCT-GLUCOSE [id number] 08:34:00 Test Item Value Reference Range Interpretation Comments POC-GLUCOSE METER 115 mg/dL 70-110 H : TESTED A T [facility] 6720 (BEAKER) (test code = [facility], 1538) [address]: Water Truck Driver/Techni janel ID = [id number] for Sm ith, Elaina POCT-GLUCOSE [id number] 20:59:00 Test Item Value Reference Range Interpretation Comments POC-GLUCOSE METER 152 mg/dL 70-110 H : TESTED A T [facility] 6720 ([facility]) (test code = [facility], 1538) [address]: Water Truck Driver/Techni janel ID = [id number] for BA ISH EMBER POCT-GLUCOSE [id number] 17:29:00 Test Item Value Reference Range Interpretation Comments POC-GLUCOSE METER 103 mg/dL 70-110 : TESTED A T [facility] 6720 ([facility]) (test code [facility], = 1538) [address]: Water Truck Driver/Techni janel ID = [id number] for TSEG GAI, TSIGHEREDA POCT-GLUCOSE [id number] 12:22:00 Test Item Value Reference Range Interpretation Comments POC-GLUCOSE METER 204 mg/dL 70-110 H : Notified RN/MD: TESTED ([facility]) (test code AT [facility] 6720 [facility] = 1538) [facility], 770 30: Water Truck Driver/Techni janel ID = [id number] for TSEG GAI, TSIGHEREDA POCT-GLUCOSE [id number] 08:43:00 Test Item Value Reference Range Interpretation Comments POC-GLUCOSE METER 132 mg/dL 70-110 H : TESTED A T [facility] 6720 (BEAKER) (test code [facility], = 1538) [address]: Water Truck Driver/Techni janel ID = [id number] for TSEG GAI, TSIGHEREDA POCT-GLUCOSE [id number] 07:13:00 Test Item Value Reference Range Interpretation Comments POC-GLUCOSE METER 200 mg/dL 70-110 H : TESTED A T [facility] 6720 (BEAKER) (test code = [facility], 1538) [address]: Water Truck Driver/Techni janel ID = [id number] for OC ANNE MARIE DUARTEANA POCT-GLUCOSE [id number] 16:54:00 Test Item Value Reference Range Interpretation Comments POC-GLUCOSE METER 103 mg/dL 70-110 : TESTED A T [facility] 6720 (BEAKER) (test code = [facility], [facility]8) [address]: Water Truck Driver/Techni janel ID = [id number] for HU NT, KATIE POCT-GLUCOSE [id number] 11:03:00 Test Item Value Reference Range Interpretation Comments POC-GLUCOSE METER 155 mg/dL 70-110 H : TESTED A T [facility] 6720 (BEAKER) (test code = [facility], [facility]8) [address]: Water Truck Driver/Techni janel ID = [id number] for HU NT, KATIE POCT-GLUCOSE [id number] 07:06:00 Test Item Value Reference Range Interpretation Comments POC-GLUCOSE METER 129 mg/dL 70-110 H : TESTED A T [facility] 6720 (BEAKER) (test code = [facility], [facility]8) [address]: Water Truck Driver/Techni janel ID = [id number] for HU NT, KATIE POCT-GLUCOSE [id number] 20:59:00 Test Item Value Reference Range Interpretation Comments POC-GLUCOSE METER 167 mg/dL 70-110 H : TESTED A T [facility] 6720 (BEAKER) (test code = [facility], [facility]8) [address]: Water Truck Driver/Techni janel ID = [id number] for KE BE, SAUDATU POCT-GLUCOSE [id number] 17:53:00 Test Item Value Reference Range Interpretation Comments POC-GLUCOSE METER 185 mg/dL 70-110 H : TESTED A T [facility] 6720 (BEAKER) (test code = [facility], [facility]8) [address]: Water Truck Driver/Techni janel ID = [id number] for Ma thew, Remyia POCT-GLUCOSE [id number] 11:18:00 Test Item Value Reference Range Interpretation Comments POC-GLUCOSE METER 145 mg/dL 70-110 H : TESTED A T [facility] 6720 (BEAKER) (test code = [facility] [place] [place], 1538) [address]: Water Truck Driver/Techni janel ID = [id number] for Caleb Barcenas POCT-GLUCOSE [id number] 07:23:00 Test Item Value Reference Range Interpretation Comments POC-GLUCOSE METER 105 mg/dL 70-110 : TESTED A T [facility] 6720 (BEAKER) (test code = [facility] [place] [place], 1538) [address]: Water Truck Driver/Techni janel ID = [id number] for Ingris Barcenasyia Basic Metabolic [id number] 04:32:00 Test Item Value Reference Range Interpretation Comments Sodium (test code = 143 meq/L 678-255 0326-2) Potassium (test code = 4.0 meq/L 3.5-5.1 2823-3) Chloride (test code = 111 meq/L 98-107 H 2075-0) CO2 (test code = 25 meq/L 22-29 2028-9) BUN (test code = 11 mg/dL 7-21 3094-0) Creatinine (test code 0.76 mg/dL 0.57-1.25 = 2160-0) Glucose (test code = 106 mg/dL 70-105 H 2345-7) Calcium (test code = 9.6 mg/dL 8.4-10.2 06238-4) EGFR (test code = 79 mL/min/1.73 [place] [address]-1) NOT ACCURATE CREATININE CLEARANCE IN PREDICTING GLOMERULAR FILTRATION RATE . ESTIMATED GFR I S NOT APPLICABLE FOR DIALYSIS PATIENTS. VIKKI (test code = VIKKI) Water Truck Driver ID - ZAHRA M Lab Interpretation Abnormal (test code = 85078-1) [facility] [id number] 04:32:00 Test Item Value Reference Range Interpretation [...] S NOT APPLICABLE FOR DIALYSIS PATIEN TS. Water Truck Driver ID - ZAHRA MCBC with platelet count + automated [id number] 04:10:00 Test Item Value Reference Range Interpretation [...] K/CU MM L MPV (test code = 11194-8) 12.3 fL 9.4-12.3 nRBC (test code = [...] 2801) Lab Interpretation (test code = Abnormal 41859-4) [facility] W/PLT COUNT & AUTO [id number] 04:10:00 Test Item Value Reference Range Interpretation [...] PERCENT (BEAKER) (test code = 2801) POCT-GLUCOSE [id number] 21:41:00 Test Item Value Reference Range Interpretation Comments POC-GLUCOSE METER 130 mg/dL 70-110 H : TESTED A T [facility] 6720 ([facility]) (test code = [facility], 1538) [address]: Water Truck Driver/Techni janel ID = [id number] for SA NTOS, UYEN POCT-GLUCOSE [id number] 17:17:00 Test Item Value Reference Range Interpretation Comments POC-GLUCOSE METER 107 mg/dL 70-110 : TESTED A T [facility] 6720 ([facility]) (test code = [facility], 1538) [address]: Water Truck Driver/Techni janel ID = [id number] for CA STRO, JONAH LITHIUM [id number] 13:12:00 Test Item Value Reference Range Interpretation Comments LITHIUM LEVEL (BEAKER) (test code 0.5 mmol/L 0.8-1.2 L = 630) POCT-GLUCOSE [id number] 07:24:00 Test Item Value Reference Range Interpretation Comments POC-GLUCOSE METER 124 mg/dL 70-110 H : TESTED A T [facility] 6720 (BEAKER) (test code = [facility], 1538) [address]: Water Truck Driver/Techni janel ID = [id number] for CA STRO, JONAH POCT-GLUCOSE [id number] 21:34:00 Test Item Value Reference Range Interpretation Comments POC-GLUCOSE METER 174 mg/dL 70-110 H : TESTED A T [facility] 6720 (BEAKER) (test code = [facility], 1538) [address]: Water Truck Driver/Techni janel ID = [id number] for DE NNIS, BING POCT-GLUCOSE [id number] 18:20:00 Test Item Value Reference Range Interpretation Comments POC-GLUCOSE METER 125 mg/dL 70-110 H : TESTED A T [facility] 6720 (BEAKER) (test code = [facility] [place] [place], 1538) [address]: Water Truck Driver/Techni janel ID = [id number] for LUCAS LOWE POCT-GLUCOSE [id number] 12:47:00 Test Item Value Reference Range Interpretation Comments POC-GLUCOSE METER 100 mg/dL 70-110 : TESTED A T [facility] 6720 (CHANG) (test code = [facility] [place] [place], 1538) [address]: Water Truck Driver/Techni janel ID = [id number] for LUCAS LOWE Comprehensive metabolic [id number] 04:30:00 Test Item Value Reference Range Interpretation Comments Protein, Total (test 7.5 6.0- 8.3 gm/dL code = 2885-2) Albumin (test code = 3.7 g/dL 3.5-5 49256-9) Alkaline Phosphatase 94 U/L 40-150 (test code = 6768-6) Total Bilirubin (test 0.9 mg/dL 0.2-1.2 code = 1974-2) Sodium (test code = 141 meq/L 464-843 6004-2) Potassium (test code = 4.0 meq/L 3.5-5.1 2823-3) Chloride (test code = 110 meq/L 98-107 H 2075-0) CO2 (test code = 23 meq/L 22-29 8-9) BUN (test code = 10 mg/dL 7-21 3094-0) Creatinine (test code 0.72 mg/dL 0.57-1.25 = 2160-0) Glucose (test code = 123 mg/dL 70-105 H 2345-7) Calcium (test code = 9.6 mg/dL 8.4-10.2 38834-7) AST (test code = 28 U/L 5-34 1920-8) ALT (test code = 39 U/L 6-55 1742-6) EGFR (test code = 84 mL/min/1.73 [place] [address]-5) NOT ACCURATE CREATININE CLEARANCE IN PREDICTING GLOMERULAR FILTRATION RATE . ESTIMATED GFR I S NOT APPLICABLE FOR DIALYSIS PATIENTS. VIKKI (test code = VIKKI) Water Truck Driver ID - DELFINO Cardozo Lab Interpretation Abnormal (test code = 36888-4) [facility] [id number] 04:30:00 Test Item Value Reference Range Interpretation [...] S NOT APPLICABLE FOR DIALYSIS PATIEN TS. Water Truck Driver ID - PIAYA LCBC W/PLT COUNT & AUTO [id number] 03:57:00 Test Item Value Reference Range Interpretation [...] PERCENT (BEAKER) (test code = 2801) POCT-GLUCOSE [id number] 21:19:00 Test Item Value Reference Range Interpretation Comments POC-GLUCOSE METER 111 mg/dL 70-110 H : TESTED A T [facility] 6720 (BEAKER) (test code = [facility], 1538) [address]: Water Truck Driver/Techni janel ID = [id number] for Neda Pineda POCT-GLUCOSE [id number] 17:31:00 Test Item Value Reference Range Interpretation Comments POC-GLUCOSE METER 106 mg/dL 70-110 : TESTED A T [facility] 6720 (BEAKER) (test code = [facility], 153) [address]: Water Truck Driver/Techni janel ID = [id number] for Caleb Barcenas Blood [id number] 14:00:00 Test Item Value Reference Range Interpretation Comments Result (test code = No growth in 5 days 6463-4) [facility] [id number] 14:00:00 Test Item Value Reference Range Interpretation Comments CULTURE (BEAKER) (test No growth in 5 days code = 1095) POCT-GLUCOSE [id number] 12:14:00 Test Item Value Reference Range Interpretation Comments POC-GLUCOSE METER 113 mg/dL 70-110 H : TESTED A T [facility] 6720 (BEAKER) (test code = [facility], 153) [address]: Water Truck Driver/Techni janel ID = [id number] for Ingris Barcenasyihernan POCT-GLUCOSE [id number] 08:06:00 Test Item Value Reference Range Interpretation Comments POC-GLUCOSE METER 133 mg/dL 70-110 H : TESTED A T [facility] 6720 (BEAKER) (test code = [facility], 153) 45285: Water Truck Driver/Techni janel ID = [id number] for Ingris Barcenasyihernan COMPREHENSIVE METABOLIC [id number] 05:57:00 Test Item Value Reference Range Interpretation [...] S NOT APPLICABLE FOR DIALYSIS PATIEN TS. Water Truck Driver ID - PIAYA LCBC W/PLT COUNT & AUTO [id number] 05:15:00 Test Item Value Reference Range Interpretation [...] PERCENT (BEAKER) (test code = 2801) POCT-GLUCOSE [id number] 21:12:00 Test Item Value Reference Range Interpretation Comments POC-GLUCOSE METER 197 mg/dL 70-110 H : [facility] ([facility], 1538) [address]: Water Truck Driver/Techni janel ID = [id number] for SUMMER OSWALD BLOOD [id number] 20:00:00 Test Item Value Reference Range Interpretation Comments CULTURE (BEAKER) (test No growth in 5 days code = 1095) Respiratory Panel [id number] 19:01:00 Test Item Value Reference Range Interpretation Comments Human Metapneumovirus Not detected Not detected, (test code = 42289-5) Equivocal Rhinovirus (test code = Not detected Not detected, 86452-8) Equivocal INFLUENZA A (NO Not detected Not detected, SUBTYPE) (test code = Equivocal 96471-4) Influenza A subtype H1 (test code = 65295-8) Influenza A Subtype H3 (test code = 16081-9) Influenza A Subtype H1-2009 (test code = 95918-1) Influenza B (test code Not detected Not detected, = 40293-0) Equivocal Respiratory Syncytial Not detected Not detected, Virus (test code = Equivocal 52345-5) Parainfluenza Virus 1 Not detected Not detected, (test code = 00153-9) Equivocal Parainfluenza Virus 2 Not detected Not detected, (test code = 55343-3) Equivocal Parainfluenza virus 3 Not detected Not detected, (test code = 69339-0) Equivocal Parainfluenza Virus 4 Not detected Not detected, (test code = 47987-1) Equivocal Adenovirus (test code = Not detected Not detected, 88024-9) Equivocal Coronavirus 229E (test Not detected Not detected, code = 67605-7) Equivocal Coronavirus HKU1 (test Not detected Not detected, code = 84661-0) Equivocal Coronavirus NL63 (test Not detected Not detected, code = 39828-6) Equivocal Coronavirus OC43 (test Not detected Not detected, code = 27233-1) Equivocal Bordetella Pertussis Not detected Not detected, (test code = 19686-9) Equivocal Chlamydophila Not detected Not detected, Pneumoniae (test code = Equivocal 57045-2) Mycoplasma Pneumoniae Not detected Not detected, (test code = 88489-9) Equivocal VIKKI (test code = VIKKI) Other viruses and bacteria not targeted by this PCR panel cannot be excluded; therefore clinical correlation and follow up of serology, culture results, and other molecular studies is required. The results are not intended to be used as the sole means for clinical diagnosis or patient management decisions. This sample was tested at the [facility] Molecular Diagnostics Laboratory using the MaginaticsArray Respiratory Panel. It is FDA cleared and has been verified and approved by the [facility] Molecular Diagnostics [facility] for clinical use on nasopharyngeal swab specimens. The performance of the FilmArray RP has not been established in individuals who received influenza vaccine. Recent administration of a nasal influenza vaccine may cause false positive results for Influenza A and/orInfluenza B. [facility] [id number] 19:01:00 Test Item Value Reference Range Interpretation [...] decisions. This sample was tested at the [facility] Molecular Diagnostics Laboratory using the MaginaticsArray Respiratory Panel. It is FDA cleared and has been verified and approved by the [facility] Molecular Diagnostics Laboratory for clinical [...] MDReport Verified Date/Time: 04/06/2020 16:45:26 Reading Location: [address] Transitional Reading Room CT chest for [...] MDReport Verified Date/Time: 04/06/2020 16:45:26 Reading Location: [address] Transitional [facility] 14:25[facility]00 Test Item Value Reference Range Interpretation Comments PTT (test code = 31.0 22.5- 36.0 seconds 40033-1) VIKKI (test code = VIKKI) 6 hours after starting heparin infusion and as indicated per sliding scale Lab Interpretation (test Normal code = 27503-7) [facility] 14:25:00 Test Item Value Reference Range Interpretation Comments PARTIAL THROMBOPLASTIN TIME 31.0 seconds 22.5-36.0 (BEAKER) (test code = 760) 6 hours after starting heparin infusion and as indicated per sliding scalePOCT- GLUCOSE [id number] 12:08:00 Test Item Value Reference Range Interpretation Comments POC-GLUCOSE METER 135 mg/dL 70-110 H : TESTED A T [facility] 6720 (BEAKER) (test code = [facility], 1538) [address]: Water Truck Driver/Techni janel ID = [id number] for PO OLGAHERLINDA CARLISLEA ECG 12 [id number] 11:22:15Interface, External Ris In - 04/06/2020 11:22 AM CDTVentricular Rate 119 BPMAtrial Rate 119 BPMP-R Interval 128 msQRS Duration 84 msQ-T Interval 308 msQTC Calculation(Bazett) 433 msP [place] 68 degreesR [place] 64 degreesT [place] 55 degreesSinus tachycardiaOtherwise normal ECGConfirmed by MD ESTELLE, ELVIA ([id number]) on 04/06/2020 11:22:13 [facility] [id number] 07:52:00 Test Item Value Reference Range Interpretation Comments POC-GLUCOSE METER 128 mg/dL 70-110 H : TESTED A T [facility] 6720 (BEAKER) (test code = [place], 1538) [address]: Water Truck Driver/Techni janel ID = [id number] for JEREMY VILLEDA COMPREHENSIVE METABOLIC [id number] 04:36:00 Test Item Value Reference Range Interpretation [...] S NOT APPLICABLE FOR DIALYSIS PATIEN TS. Water Truck Driver ID - DELFINO [id number] 04:10:00 Test Item Value Reference Range Interpretation Comments PARTIAL THROMBOPLASTIN TIME 29.3 seconds 22.5-36.0 (BEAKER) (test code = 760) Prior to initiating heparinCBC W/PLT COUNT & AUTO [id number] 04:02:00 Test Item Value Reference Range Interpretation [...] = 2801) Urinalysis w/Microscopic + Reflex to [id number] 00:18:00 Test Item Value Reference Range Interpretation Comments Color, UA (test code = Yellow 5778-6) Clarity, UA (test code = Clear 5767-9) Specific Grace, UA 1.015 1.001-1.035 (test code = 5811-5) pH, UA (test code = 7.0 5.0-8.0 5803-2) Protein, UA (test code = Negative Negative 64809-9) Glucose, UA (test code = Negative Negative 365) Ketones, UA (test code = Negative Negative 2514-8) Bilirubin, UA (test code Negative Negative = 35560-1) Blood, UA (test code = Negative Negative 85389-3) Nitrite, UA (test code = Negative Negative 5802-4) Leukocytes, UA (test code Moderate Negative A = 5799-2) Urobilinogen, UA (test 6.0 mg/dL 0.2-1 H code = 33138-6) RBC, UA (test code = <1 /HPF 16494-4) WBC, UA (test code = 14 /HPF 5821-4) Bacteria, UA (test code = Occasional 50601-8) Squam Epithel, UA (test 5 /HPF code = 34957-5) Specimen Source (test code = 2795) VIKKI (test code = VIKKI) Water Truck Driver ID - [auto]Water Truck Driver ID - ann Lab Interpretation (test Abnormal code = 41488-4) [facility] REFLEX URINE [id number] 00:18:00 Test Item Value Reference Range Interpretation [...] = 516) SOURCE(BEAKER) (test code = 2795) Water Truck Driver ID - [auto]Water Truck Driver ID - hankPOCT-GLUCOSE [id number] 23:31:00 Test Item Value Reference Range Interpretation Comments POC-GLUCOSE METER 137 mg/dL 70-110 H : TESTED A T [facility] 6720 (BEAKER) (test code = [place], 1538) [address]: Water Truck Driver/Techni janel ID = [id number] for CH UA, HENRISON [id number] 19:18:00 Test Item Value Reference Range Interpretation Comments Magnesium (test code = 1.6 mg/dL 1.6-2.6 32429-3) VIKKI (test code = VIKKI) Water Truck Driver ID - DB Lab Interpretation (test Normal code = 58523-2) [facility]Phosphorus2020-05-29 19:18:00 Test Item Value Reference Range Interpretation Comments Phosphorus (test code = 2.9 mg/dL 2.3-4.7 2777-1) VIKKI (test code = VIKKI) Water Truck Driver ID - DB Lab Interpretation (test Normal code = 40804-9) [facility]OSPHORUS2020-05-29 19:18:00 Test Item Value Reference Range Interpretation Comments PHOSPHORUS (BEAKER) (test code = 2.9 mg/dL 2.3-4.7 604) Water Truck Driver ID - [id number] 19:18:00 Test Item Value Reference Range Interpretation Comments MAGNESIUM (BEAKER) (test code = 1.6 mg/dL 1.6-2.6 627) Water Truck Driver ID - DBBASIC METABOLIC [id number] 19:18:00 Test Item Value Reference Range Interpretation [...] S NOT APPLICABLE FOR DIALYSIS PATIEN TS. Water Truck Driver ID - [id number] 19:09:00 Test Item Value Reference Range Interpretation Comments D-Dimer, Quant (test code 0.89 <0.50 MG/L FEU H = 71590-2) VIKKI (test code = VIKKI) Intended Use: [...] range. Lab Interpretation (test Abnormal code = 17270-1) [facility]2020-04-05 19:09:00 Test Item Value Reference Range Interpretation Comments SARS-COV2/RT-PCR Not Detected Not Detected, (test code = Negative 93396-8) SARS-COV-2 [facility] PERFORMING LAB (test code = 69922-5) VIKKI (test code = Negative results do [...] of the Act. Fact Sheet for Healthcare Providers:https://www.[employer]/Documents/Xper t%20Xpress%20SARS%20CoV- 2/Fact%20Sheets/3023802 %19ZOFK-OQQ-0%20HEALTHCA RE%20PROVIDERS%20FACT%20 SHEET.pdf Fact Sheet for Healthcare Patients:https://www.[employer]/Documents/Xpert %20Xpress%20SARS%20CoV-2 /Fact%20Sheets/3023801% 20KCFP-ILN-2%20PATIENT%2 0FACT%20SHEET.pdf Performing Laboratory:[facility] [place] [address] [facility] HospitalD-[id number] 19:09:00 Test Item Value Reference Range Interpretation [...] of thrombosis is within 95-100% range. SARS-COV2/RT-PCR ([facility])2020-04-05 19:09:00 Test Item Value Reference Range Interpretation Comments SARS-COV2/RT-PCR (test Not Detected Not Detected, Negative code = 3735035) SARS-COV-2 PERFORMING LAB [facility] (test code = 5578041) Negative results do not preclude SARS-CoV-2 infection [...] of the Act.Fact Sheet for Healthcare Pro viders:https://www.[employer]/Documents/Xpert%20Xpress%20SARS%20CoV-2/Fact%20Sh eets/3023802%38FIFW-BNU-2%20HEALTHCARE%20PROVIDERS%20FACT%20SHEET.pdfFact Sheet for Healthcare Patients:https://www.QBotix id.CoMentis/Documents/Xpert%20Xpress%20SARS%20CoV-2/Fact%20Sheets/3023801%20SARS-COV -2%20PATIENT%20FACT%20SHEET.pdfPerforming Laboratory:[facility], [place] [address]UUQ W/PLT COUNT & AUTO DIFFERENTIAL 2020-04-05 19:01:00 [...] = 2801) RAD, CHEST, 1 VIEW, NON [id number] 17:16:00Reason for exam:->sob, feverShould this be performed at the bedside?->YesFINAL REPORT TECHNIQUE: Frontal chest radiograph dated 04/05/2020. CLINICAL HISTORY: SOB, Fever COMPARISON STUDY: Chest radiograph dated 04/01/2020 IMPRESSION:Endotracheal and enteric tubes have been removed. Lungs are clear. No pleural effusion or pneumothorax. Cardiomediastinalsilhouette is normal in size. No pulmonary edema. No fracture. Signed: Douglas Haleeport V erified Date/Time: 04/05/2020 17:16:45 Reading Location: [address] Transitional Reading Room XR chest 1 view portable / [id number] 17:16:00 Interface, External Ris In - 04/05/2020 5:18 PM CDTFINAL REPORT TECHNIQUE: Frontal chest radiograph dated 04/05/2020. CLINICAL HISTORY: SOB, Fever COMPARISON STUDY: Chest radiograph dated 04/01/2020 IMPRESSION:Endotracheal and enteric tubes have been removed. Lungs are clear. No pleural effusion or pneumothorax. Cardiomediastinal silhouette is normal in size. No pulmonary edema. No fracture. Signed: Douglas Haleeport Verified Date/Time: 04/05/2020 17:16:45 Reading Location: [facility] C0[facility] Transitional Reading Room [facility] Hollywood[facility]-GLU[facility]SE [id number] 17:04:00 Test Item Value Reference Range Interpretation Comments POC-GLUCOSE METER 128 mg/dL 70-110 H : TESTED A T [facility] 6720 (BEAKER) (test code = [place], 1538) [address]: Water Truck Driver/Techni janel ID = [id number] for RO DGERS, JAMECA Lactic acid, [id number] 16:47:00 Test Item Value Reference Range Interpretation Comments Lactate, Venous (test code = 1.24 mmol/L 0.5-2.2 2872) VIKKI (test code = VIKKI) Water Truck Driver ID - DB Lab Interpretation (test Normal code = 01622-1) [facility] CampusLACTIC ACID, [id number] 16:47:00 Test Item Value Reference Range Interpretation Comments LACTATE BLOOD VENOUS (2) (BEAKER) 1.24 mmol/L 0.50-2.20 (test code = 2872) Water Truck Driver ID - DBPOCT-GLUCOSE [id number] 11:33:00 Test Item Value Reference Range Interpretation Comments POC-GLUCOSE METER 92 mg/dL 70-110 : TESTED A T [facility] 6720 (BEAKER) (test code = [facility], [facility]8) [address]: Water Truck Driver/Techni janel ID = [id number] for RODG ERS, JAMECA POCT-GLUCOSE [id number] 08:34:00 Test Item Value Reference Range Interpretation Comments POC-GLUCOSE METER 136 mg/dL 70-110 H : TESTED A T [facility] 6720 (BEAKER) (test code = [facility], 153) 917[address]: Water Truck Driver/Techni janel ID = [id number] for RO DGERS, JAMECA POCT-GLUCOSE [id number] 21:09:00 Test Item Value Reference Range Interpretation Comments POC-GLUCOSE METER 93 mg/dL 70-110 : TESTED A T [facility] 6720 (BEAKER) (test code = [facility], 1538) 38947: Water Truck Driver/Techni janel ID = [id number] for DILCIA Z, NADINA POCT-GLUCOSE [id number] 18:02:00 Test Item Value Reference Range Interpretation Comments POC-GLUCOSE METER 84 mg/dL 70-110 : TESTED A T [facility] 6720 (BEAKER) (test code = [facility], 1538) 838[address]: Water Truck Driver/Techni janel ID = [id number] for BROW N, DARYA Hepatic function [id number] 16:01:00 Test Item Value Reference Range Interpretation Comments Protein, Total (test code = 7.4 6.0- 8.3 gm/dL 2885-2) Albumin (test code = 3.8 g/dL 3.5-5 76964-8) Total Bilirubin (test code 1.4 mg/dL 0.2-1.2 H = 1975-2) Bilirubin, Direct (test 0.7 mg/dL 0.1-0.5 H code = 1968-7) Alkaline Phosphatase (test 102 U/L 40-150 code = 6768-6) AST (test code = 1920-8) 67 U/L 5-34 H ALT (test code = 1742-6) 40 U/L 6-55 VIKKI (test code = VIKKI) Water Truck Driver ID - NTP Lab Interpretation (test Abnormal code = 09912-2) [facility] [id number] 16:01:00 Test Item Value Reference Range Interpretation [...] (test code = 40 U/L 6-55 347) Water Truck Driver ID - NTPCBC W/PLT COUNT & AUTO [id number] 15:40:00 Test Item Value Reference Range Interpretation [...] PERCENT (BEAKER) (test code = 2801) POCT-GLUCOSE [id number] 11:53:00 Test Item Value Reference Range Interpretation Comments POC-GLUCOSE METER 94 mg/dL 70-110 : TESTED A T [facility] 6720 (BEAKER) (test code = [place], 1538) [address]: Water Truck Driver/Techni janel ID = [id number] for DARYA SEWELL POCT-GLUCOSE [id number] 09:06:00 Test Item Value Reference Range Interpretation Comments POC-GLUCOSE METER 114 mg/dL 70-110 H : [facility] (BEAKER[facility] (test code = [place], 1538) [address]: Water Truck Driver/Techni janel ID = [id number] for DARYA PEREZ [id number] 06:19:00 Test Item Value Reference Range Interpretation Comments PHOSPHORUS (BEAKER) (test code = 3.8 mg/dL 2.3-4.7 604) Water Truck Driver ID - ZAHRA [id number] 06:19:00 Test Item Value Reference Range Interpretation Comments MAGNESIUM (BEAKER) (test code = 1.8 mg/dL 1.6-2.6 627) Water Truck Driver ID - ZAHRA MBASIC METABOLIC [id number] 06:19:00 Test Item Value Reference Range Interpretation [...] S NOT APPLICABLE FOR DIALYSIS PATIEN TS. Water Truck Driver ID - ZAHRA MCBC W/PLT COUNT & AUTO [id number] 05:56:00 Test Item Value Reference Range Interpretation [...] PERCENT (BEAKER) (test code = 2801) POCT-GLUCOSE [id number] 22:05:00 Test Item Value Reference Range Interpretation Comments POC-GLUCOSE METER 110 mg/dL 70-110 : TESTED A T [facility] 6720 (BEAKER) (test code = [facility], 1538) 76896: Water Truck Driver/Techni janel ID = [id number] for OR JOSE C PAIGE POCT-GLUCOSE [id number] 18:00:00 Test Item Value Reference Range Interpretation Comments POC-GLUCOSE METER 127 mg/dL 70-110 H : TESTED A T [facility] 6720 (BEAKER) (test code = [facility], 1538) 03592: Water Truck Driver/Techni janel ID = [id number] for Sm ith, Elaina POCT-GLUCOSE [id number] 11:47:00 Test Item Value Reference Range Interpretation Comments POC-GLUCOSE METER 100 mg/dL 70-110 : TESTED A T [facility] 6720 (BEAKER) (test code = [facility], 1538) 78010: Water Truck Driver/Techni janel ID = [id number] for Sm ith, Elaina Hemoglobin [id number] 10:02:00 Test Item Value Reference Range Interpretation Comments Hemoglobin A1C (test code = 4548-4) 6.0 % 4.3-6.1 Lab Interpretation (test code = Normal 54621-4) [facility]HEMOGLOBIN [id number] 10:02:00 Test Item Value Reference Range Interpretation Comments HEMOGLOBIN A1C (BEAKER) (test code = 6.0 % 4.3-6.1 368) POCT-GLUCOSE [id number] 07:38:00 Test Item Value Reference Range Interpretation Comments POC-GLUCOSE METER 115 mg/dL 70-110 H : TESTED A T [facility] 6720 (BEAKER) (test code = [facility], 153) 15574: Water Truck Driver/Techni janel ID = [id number] for Sm ith, Elaina U/S, ABDOMINAL, [id number] 06:20:00Abdomen limited area? Add comment if clarification [...] MDReport Verified Date/Time: 04/03/2020 06:20:42 US abdomen [id number] 06:20:00Interface, External Ris In - 04/03/2020 6:23 [...] Leighton Walker MDReport Verified Date/Time: 04/03/2020 06:20:42 [facility] 04:33:00 Test Item Value Reference Range Interpretation Comments PHOSPHORUS (BEAKER) (test code = 3.3 mg/dL 2.3-4.7 604) Water Truck Driver ID - PIAYA [id number] 04:33:00 Test Item Value Reference Range Interpretation Comments MAGNESIUM (BEAKER) (test code = 1.8 mg/dL 1.6-2.6 627) Water Truck Driver ID - PIAYA LBASIC METABOLIC [id number] 04:33:00 Test Item Value Reference Range Interpretation [...] S NOT APPLICABLE FOR DIALYSIS PATIEN TS. Water Truck Driver ID - PIAYA LHEPATIC FUNCTION [id number] 04:33:00 Test Item Value Reference Range Interpretation [...] (test code = 32 U/L 6-55 347) Water Truck Driver ID - PIAYA LCBC W/PLT COUNT & AUTO [id number] 04:08:00 Test Item Value Reference Range Interpretation [...] PERCENT (BEAKER) (test code = 2801) POCT-GLUCOSE [id number] 21:20:00 Test Item Value Reference Range Interpretation Comments POC-GLUCOSE METER 144 mg/dL 70-110 H : Notified RN/MD: (CHANG) (test code = TESTED AT [facility] 6720 1538) [facility], [address]: Water Truck Driver/Techni janel ID = [id number] for MAEARIA ZAYDANora RICHARDS MR, BRAIN, WITHOUT [id number] 20:37:00FINAL REPORT MR, BRAIN, WITHOUT CONTRAST INDICATION: [...] Date/Time: 04/02/2020 20:37:03 MR brain without IV [id number] 20:37:00Interface, External Ris In - 04/02/2020 8:39 [...] Signed: Parvin More Verified Date/Time: 04/02/2020 20:37:03 [facility] [id number] 17:29:00 Test Item Value Reference Range Interpretation Comments POC-GLUCOSE METER 131 mg/dL 70-110 H : TESTED A T [facility] 6720 (BEAKER) (test code = [place]ER [place] [facility], 1538) [address]: Water Truck Driver/Techni janel ID = [id number] for KATIE ZAMORA LITHIUM [id number] 16:31:00 Test Item Value Reference Range Interpretation Comments LITHIUM LEVEL (BEAKER) < mmol/L 0.8-1.2 L This test was performed (test code = 630) at:[facility] , [facility], [address] [place] [address] Rapid drug screen, [id number] 13:58:00 Test Item Value Reference Range Interpretation Comments Barbiturate Screen Negative Negative (test code = 70088-7) Benzodiazepine Screen Positive Negative A (test code = 76379-2) Cocaine (Metab.) Negative Negative Screen (test code = 3397-7) Methadone Screen (test Negative Negative code = 06867-3) Opiate Screen (test Negative Negative code = 91534-6) Cannabinoid Screen Negative Negative (test code = 79685-0) Amph/Methamph Screen Negative Negative (test code = 05370-8) Phencyclidine Screen Negative Negative (test code = 16508-7) pH, UA (test code = 6.5 5.0-8.0 5803-2) VIKKI (test code = VIKKI) DRUG CUTOFF CONC.Cocaine 300 ng/mL Cannabinoid 50 ng/mLBenzodiazepine 200 ng/mLBarbiturate 200 ng/mLPhencyclidine 25 ng/mLOpiate 300 ng/mLMethadone 300 ng/mLAmphetamine/ 1000 ng/mL Methamphetamine This assay provides an unconfirmed qualitative test result for the clinical management of patients in emergency situations. Chain of custody not maintained. Some chde-hom-wwjxtoi medications, as well as adulterants, may cause inaccurate results. Clinical correlation should be applied. A more comprehensive drug screen or confirmation of a detected drug may be performed upon request.Water Truck Driver ID - ADMIN Lab Interpretation Abnormal (test code = 92681-3) [facility] Hospital[facility] SCREEN, [id number] 13:58:00 Test Item Value Reference Range Interpretation [...] situations. Chain of custody not maintained. Some dgqu-odo-lcmykpg medications, as well as adulterants, may cause inaccurate results. Clinical correlation should be applied. A more comprehensivedrug screen or confirmation of a detected drug may be performed upon request.Water Truck Driver ID - ADMINEEG W VID 12-26 HR CONTINUOUS MONITORING (VEEG)2020-04-02 13:28:00Reason for exam:- >SEIZURES Should this be performed at the bedside?->YesDate of EE04/01/2020 to 04/02/2020 DATE OF REPORT: 04/02/2020 ACC: [id number] EEG Number: [id number] Start time: 04/01/2020 @ 14:41 PM Stop time: 04/02/2020 @ 11:30 AM ICD-10: R56.9 CPT Code: 50698 HISTORY: 54 y.o. Female with ADHD, bipolar [...] Attending EEG 12-26 HR Continuous Monitoring with [id number] 13:28:00 Interface, External Ris In 04/02/2020 1:28 PM CDTDate of EE04/01/2020 to 04/02/2020 DATE OF REPORT: 04/02/2020 ACC: [id number] EEG Number: [id number] Start time: 04/01/2020 @ 14:41 PM Stop time: 04/02/2020 @ 11:30 AM ICD-10: R56.9 CPT Code: 26525 HISTORY: 54 y.o. Female with ADHD, bipolar [...] by: ELVIE MCKAY MD on 04/02/2020 01:28 [facility]2020-05-26 12:55:00 Test Item Value Reference Range Interpretation Comments Ammonia (test code = 60 18- 72 mol/L 81923-7) VIKKI (test code = VIKKI) Water Truck Driver ID - ABILIO E Lab Interpretation (test Normal code = 83160-6) [facility]2020-05-26 12:55:00 Test Item Value Reference Range Interpretation Comments AMMONIA (BEAKER) (test code = 348) 60 mol/L 18-72 Water Truck Driver ID Caroline KNOX EPOCT-GLUCOSE [id number] 11:12:00 Test Item Value Reference Range Interpretation Comments POC-GLUCOSE METER 165 mg/dL 70-110 H : TESTED A T [facility] 6720 (BEAKER) (test code = [place], 1538) [address]: Water Truck Driver/Techni janel ID = [id number] for HU NT, KATIE POCT-GLUCOSE [id number] 08:44:00 Test Item Value Reference Range Interpretation Comments POC-GLUCOSE METER 97 mg/dL 70-110 : TESTED A T [facility] 6720 (BEAKER) (test code = [place], 1538) [address]: Water Truck Driver/Techni janel ID = [id number] for HARIS FUCHS BASIC METABOLIC [id number] 05:35:00 Test Item Value Reference Range Interpretation [...] S NOT APPLICABLE FOR DIALYSIS PATIEN TS. Water Truck Driver ID - LACBC W/PLT COUNT & AUTO [id number] 05:04:00 Test Item Value Reference Range Interpretation [...] PERCENT (BEAKER) (test code = 2801) POCT-GLUCOSE [id number] 02:05:00 Test Item Value Reference Range Interpretation Comments POC-GLUCOSE METER 116 mg/dL 70-110 H : TESTED A T [facility] 6720 (BEAKER) (test code = [place], 1538) [address]: Water Truck Driver/Techni janel ID = [id number] for Neda Pineda T4, [id number] 20:56:00 Test Item Value Reference Range Interpretation Comments Free T4 (test code = 1.19 ng/dL 0.7-1.48 3024-7) VIKKI (test code = VIKKI) Water Truck Driver ID - NTP Lab Interpretation (test Normal code = 71908-5) [facility] HospitalT[facility], [id number] 20:56:00 Test Item Value Reference Range Interpretation Comments FREE T4 (BEAKER) (test code = 655) 1.19 ng/dL 0.70-1.48 Water Truck Driver ID - NTPPOCT-GLUCOSE [id number] 20:54:00 Test Item Value Reference Range Interpretation Comments POC-GLUCOSE METER 99 mg/dL 70-110 : TESTED A T [facility] 6720 (BEAKER) (test code = [place], 1538) [address]: Water Truck Driver/Techni janel ID = [id number] for DUNG DOWLING TSH/Free T4 If [id number] 20:18:00 Test Item Value Reference Range Interpretation Comments TSH (test code = 0.057 0.350- 4.940 uIU/mL L 58156-0) VIKKI (test code = VIKKI) Water Truck Driver ID - NTP Lab Interpretation (test Abnormal code = 66200-7) [facility] HospitalTSH/FREE T4 IF [id number] 20:18:00 Test Item Value Reference Range Interpretation Comments THYROID STIMULATING HORMONE 0.057 uIU/mL 0.350-4.940 L (BEAKER) (test code = 772) Water Truck Driver ID - NTPVitamin B12 and Sadinv0127-01-08 20:07:00 Test Item Value Reference Range Interpretation Comments Vitamin B12 (test code = 929 pg/mL 213-816 H 2132-9) Folate (test code = 2284-8) 15.80 ng/mL >=7.00 VIKKI (test code = VIKKI) Water Truck Driver ID - NTP Lab Interpretation (test Abnormal code = 17764-5) [facility] HospitalVITAMIN B12 AND [id number] 20:07:00 Test Item Value Reference Range Interpretation Comments VITAMIN B12 (BEAKER) (test code = 929 pg/mL 213-816 H 774) FOLATE (BEAKER) (test code = 362) 15.80 ng/mL >=7.00 Water Truck Driver ID - NTPHEPATIC FUNCTION [id number] 19:32:00 Test Item Value Reference Range Interpretation [...] (test code = 31 U/L 6-55 347) Water Truck Driver ID - NTPPOCT-GLUCOSE [id number] 18:09:00 Test Item Value Reference Range Interpretation Comments POC-GLUCOSE METER 96 mg/dL 70-110 : TESTED A T [facility] 6720 ([facility]) (test code = [facility], 1538) [address]: Water Truck Driver/Techni janel ID = [id number] for SLY DUBOSE POCT-GLUCOSE [id number] 12:33:00 Test Item Value Reference Range Interpretation Comments POC-GLUCOSE METER 102 mg/dL 70-110 : TESTED A T [facility] 6720 (RoomClipAKER) (test code = [facility], 1538) [address]: Water Truck Driver/Techni janel ID = [id number] for JOSEPHINE HOOVER Troponin [id number] 07:53:00 Test Item Value Reference Range Interpretation Comments Troponin I (test code = 0.01 ng/mL 0-0.03 62544-7) VIKKI (test code = VIKKI) Troponin I [...] NTP Lab Interpretation (test Normal code = 71603-7) [facility] HospitalTROPOXAVIER [id number] 07:53:00 Test Item Value Reference Range Interpretation [...] failure, acidosis, acute neurological disease, and persistent tachyarrhythmia.Water Truck Driver ID - NTPSARS-COV2/RT-PCR ([facility])2020-04-01 06:29:00 Test Item Value Reference Range Interpretation Comments SARS-COV2/RT-PCR (test Not Detected Not Detected, Negative code = 0312225) SARS-COV-2 PERFORMING LAB [facility] (test code = 8580845) Negative results do not preclude SARS-CoV-2 infection [...] of the Act.Fact Sheet for Healthcare Pro viders:https://www.Rippld.CoMentis/Documents/Xpert%20Xpress%20SARS%20CoV-2/Fact%20Sh eets/302-5552%49OFAT-UBE-7%20HEALTHCARE%20PROVIDERS%20FACT%20SHEET.pdfFact Sheet for Healthcare Patients:https://www.[employer]entis/Documents/Xpert%20Xpress%20SARS%20CoV-2/Fact%20Sheets/302-7069%20SARS-COV -2%20PATIENT%20FACT%20SHEET.pdfPerforming Laboratory:[address] [place], [place] [address]RUM W/PLT COUNT & AUTO DIFFERENTIAL 2020-04-01 05:56:00 [...] code = 2801) URINALYSIS W/ REFLEX URINE [id number] 05:55:00 Test Item Value Reference Range Interpretation [...] = 1584) SOURCE(BEAKER) (test code = 2795) Water Truck Driver ID - [auto]Water Truck Driver ID - techCreatine Kinase (CK)2020-04-01 05:42:00 Test Item Value Reference Range Interpretation Comments Total CK (test code = 79 U/L 29-200 7-6) VIKKI (test code = VIKKI) Water Truck Driver ID Caroline SWEENEY M Lab Interpretation (test Normal code = 21327-3) [facility]2020-05-25 05:42:00 Test Item Value Reference Range Interpretation Comments PHOSPHORUS (BEAKER) (test code = 3.0 mg/dL 2.3-4.7 604) Water Truck Driver ID - ZAHRA [id number] 05:42:00 Test Item Value Reference Range Interpretation Comments MAGNESIUM (BEAKER) (test code = 2.1 mg/dL 1.6-2.6 627) Water Truck Driver ID - ZAHRA MBASIC METABOLIC [id number] 05:42:00 Test Item Value Reference Range Interpretation [...] S NOT APPLICABLE FOR DIALYSIS PATIEN TS. Water Truck Driver ID - ZAHRA MCREATINE KINASE (CK)2020-04-01 05:42:00 Test Item Value Reference Range Interpretation Comments CREATINE KINASE TOTAL (BEAKER) (test 79 U/L 29-200 code = 380) Water Truck Driver ID - ZAHRA MPT/[id number] 05:34:00 Test Item Value Reference Range Interpretation Comments Protime (test code = 15.4 11.9- 14.2 H 5902-2) seconds INR (test code = 1.3 <=5.9 6301-6) PTT (test code = 25.8 22.5- 36.0 52110-5) seconds VIKKI (test code = VIKKI) Effective 04/05/2019: PT Reference Range ChangeNew: 11.9-14.2 Previous: 11.7-14.7 RECOMMENDED COUMADIN/WARFARIN INR THERAPY RANGESSTANDARD DOSE: 2.0-3.0 Includes: PROPHYLAXIS for venous thrombosis, systemic embolization; TREATMENT for venous thrombosis and/or pulmonary embolus.HIGH RISK: Target INR is 2.5-3.5 for patients wiht mechanical heart valves. Lab Interpretation Abnormal (test code = 36141-2) [facility] HospitalPT/[id number] 05:34:00 Test Item Value Reference Range Interpretation [...] mechanical heart valves.RAD, CHEST, 1 VIEW, NON [id number] 05:12:00Reason for exam:->post intubationIs the patient ?->UnknownFINAL [...] examination to the upper abdomen. 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 The ECG is interpreted as sinus tachycardia. Rate is tachycardic. Heart rate is 111 BPM.ST segments normal. T waves normal. [place] is normal. Other findings include: prolonged QTc interval. Clinical Impression: non-specific ECGECG reviewed and does not meet STEMI criteria. Patient tolerance: Patient tolerated the procedure well with no immediate complicationsCH[facility] POC Glucose, [id number] 05:26:00 Test Item Value Reference Range Interpretation Comments POC Glucose (test 136 mg/dL 70-115 H Notify RN or MDIf you code = POCGLUC) consider you r patient critically ill, the [place]ira Accu-Chek InformII metershould not be used for Glucose determinations. Draw a venous Glucose and send to the Main Lab for Analysis. [id number] 08:15:00 Test Item Value Reference Range Interpretation Comments [place] (test code = LI) 0.44 mmol/L 0.6-1.2 L POC Glucose, [id number] 05:37:00 Test Item Value Reference Range Interpretation Comments POC Glucose (test 134 mg/dL 70-115 H If you con luncheonette operator your code = POCGLUC) patient crit ically ill, the [place]ira Accu- Chek InformII meters hould not be used for Glu cose determinations. Draw a venous Glucose and send to the Main Lab for Analysis. POC Glucose, [id number] 07:28:00 Test Item Value Reference Range Interpretation Comments POC Glucose (test 128 mg/dL 70-115 H If you con luncheonette operator your code = POCGLUC) patient crit ically ill, the [place] Accu- Chek InformII meters hould not be used for Glu cose determinations. Draw a venous Glucose and send to the Main Lab for Analysis. POC Glucose, [id number] 20:18:00 Test Item Value Reference Range Interpretation Comments POC Glucose (test 121 mg/dL 70-115 H If you con luncheonette operator your code = POCGLUC) patient crit ically ill, the [place]ira Accu- Chek InformII meters hould not be used for Glu cose determinations. Draw a venous Glucose and send to the Main Lab for Analysis. BHCG, Serum, [id number] 22:36:00 Test Item Value Reference Range Interpretation Comments Preg Qual [Se] (test code = BSHCG) Negative Negative N POC Glucose, [id number] 15:14:00 Test Item Value Reference Range Interpretation Comments POC Glucose (test 117 mg/dL 70-115 H If you con luncheonette operator your code = POCGLUC) patient crit ically ill, the [place] Accu- Chek InformII meters hould not be used for Glu cose determinations. Draw a venous Glucose and send to the Main Lab for Analysis.
== END 2020-08-08 12:30 | disposition home or self-care (01) ==
LOC: ER 10:13
DX: M79.631 Pain in right forearm (principal); Z85.3 Personal history of malignant neoplasm of breast
CPT/HCPCS: 96372; 99284

== ENCOUNTER 2020-09-03 22:40 | Emergency (ER) | payer OTHER ==
--- OUTSIDE RECORDS SUMMARY | 2020-09-03 22:43 | XMS REPORT | Clinical Summary ---
:1965 Author Organization [facility] Address [address] [place] [address] Care Team Providers Name Role Phone Unavailable Primary Care Provider Unavailable Allergies No Known Allergies Medications Medication Sig Dispensed Refills Start End Date Status Date anastrozole Take 1 mg by mouth 0 Active (ARIMIDEX) 1 mg daily. tablet umeclidinium-aura Inhale 1 puff by 0 Active anteroL (ANORO mouth via inhaler ELLIPTA) 62.5-25 daily. mcg/actuation DsDv acetaminophen-co Take 1 tablet by 0 Active deine (TYLENOL mouth every 8 #3) 300-30 mg (eight) hours as per tablet needed (severe pain) . albuterol HFA Inhale 2 puffs by 1 Inhaler 0 04/15/20 Active (VENTOLIN HFA) mouth via inhaler 0 21 90 mcg/actuation every 6 (six) inhaler hours as needed for Wheezing. QUEtiapine Take 4 tablets 0 Acti ve (SEROQUEL) 50 MG (200 mg total) by 0 tablet mouth 2 (two) times daily. lithium 150 MG Take 4 capsules 0 Active capsule (600 mg total) by 0 mouth 2 (two) times daily with breakfast and dinner. QUEtiapine Take 100 mg by 0 04/13/20 Disc ontinued (SEROQUEL) 100 mouth nightly. 20 MG tablet lithium 150 MG Take 300 mg by 0 04/01/20 Discontinued capsule mouth. 20 (Error) FLUOXETINE, 40 mg by 0 04/01/20 Disconti nued BULK, MISC Miscellaneous 20 (Erro r) route . clonazePAM Take 2 mg by mouth 0 04/13/20 Discontinued (KLONOPIN) 2 MG 2 (two) times 20 (Stop Taking at tablet daily as needed Disc harge) for Anxiety. dextroamphetamin Take 10 mg by 0 04/01/20 Discontinued e-amphetamine 5 mouth. 20 (Err or) mg Tab pregabalin Take 50 mg by 0 04/01/20 Disco ntinued (LYRICA) 50 MG mouth 3 (three) 20 (Error) capsule times daily. topiramate Take 50 mg by 0 04/01/20 Disco ntinued (TOPAMAX) 50 MG mouth 2 (two) 20 (Error) tablet times daily. dextroamphetamin dextroamphetamine- 0 04/27 Discontinued e-amphetamine amphetamine 20 mg 20 (Stop Taking at (ADDERALL) 20 mg tablet Dis charge) Tab tablet FLUoxetine Take 20 mg by 0 04/13/20 Disco ntinued (PROZAC) 20 MG mouth daily. 20 (R eorder) tablet lithium 300 MG lithium carbonate 0 0 Discontinued capsule 300 mg capsule 6 20 (Reor beck) QUEtiapine quetiapine 300 mg 0 04/14/20 D iscontinued (SEROQUEL) 300 tablet 0 20 (Reor beck) MG tablet HYDROcodone-acet Take by mouth. 0 04/13/20 Discontinued aminophen 20 (Stop Taki ng at (VICODIN) 5-300 Disc harge) mg Tab FLUoxetine Take 1 tablet (10 0 04/15/20 D iscontinued (PROZAC) 10 MG mg total) by mouth 0 20 (Stop Taking at tablet daily. Discharge) QUEtiapine Take 3 tablets 0 04/15/20 Disc ontinued (SEROQUEL) 50 MG (150 mg total) by 0 20 (Reorder) tablet mouth 2 (two) times daily. lithium 150 MG Take 3 capsules 0 04/15/20 Discontinued capsule (450 mg total) by 0 20 (R eorder) mouth 2 (two) times daily with breakfast [...] 04/01/2020 Hypertension 05/31/2019 Osteoarthritis 05/29/2019 Overview: Overview: 2015: IMPRESSION: 1. Small central disc herniation at [...] Description 04/01/2020 - Hospital Encounter General Internal Forrest, Glendy, MD Status epilepticus (HCC) (Primary Dx); 04/16/2020 Medicine Kirit De La Cruz, Acute respi ratory failure, unspecified whether with hypoxia or hypercapnia (HCC); MD Chung; Melody Burton Anxiety and depression; MD Sandra Severe bipolar I disorder, current or mo st recent episode depressed (HCC); LanierSamantha Manic state (H CC); MD Divine Bipolar affective disorder, current epis ode manic with psychotic symptoms (HCC); Arturo Downs, Bipolar dis order with psychotic features (HCC); E-coli UTI; Obesity (BMI 30 -39.9); Witnessed seizu re-like activity ([facility]) 04/01/2020 Orders Only General Internal Medicine 04/01/2020 Travel after 09/03/2019 Social History Tobacco Use Types Packs/Day Years Used Date Current Every Day Smoker Smokeless Tobacco: Never Used Alcohol Use Drinks/Week oz/Week Comments No Sex Assigned at Date Recorded Not on file Last Filed Vital Signs Vital Sign Reading Time Taken Comments Blood Pressure 115/75 04/16/2020 6:55 AM CDT [...] 1:00 PM CDT Body Mass Index 35.45 04/01/2020 1:00 PM CDT Plan of Treatment Not on file [...] are i n the results section. SARS-COV2/RT-PCR ([facility] Routine 04/05/2020 5:02 R esults for this [...] results section. ECG 12-LEAD Routine 04/01/2020 8:31 AM CDT Procedure Note - Interface, External Ris In - 04/02/2020 4:27 AM CDT Ventricular Rate 111 BPM Atrial Rate 111 BPM P-R Interval 130 ms QRS Duration 84 ms Q-T Interval 348 ms QTC Calculation(Bazett) 473 ms P [place] 61 degrees R [place] 50 degrees T [place] 42 degrees Sinus tachycardia Otherwise normal ECG When compared with ECG of 23:37, No significant change was fo und ECG 12-LEAD Routine 04/01/2020 8:31 AM CDT Resu lts for this procedure are i n the results section . SARS-COV2/RT-PCR ([facility] & STAT 04/01/2020 5:24 AM CDT Results for this REF LABS) procedure are i n the results section . CBC W/PLT COUNT & AUTO STAT 04/01/2020 5:08 AM CDT Results for this DIFFERENTIAL procedure are i n the results section . TROPONIN I STAT Add-on 04/01/2020 5:08 AM CDT Resu lts for this procedure are i n the results section . PT/APTT STAT 04/01/2020 5:08 AM CDT Resu lts for this procedure are i n the results section . PHOSPHORUS STAT 04/01/2020 5:08 AM CDT Resu lts for this procedure are i n the results section . CREATINE KINASE (CK) STAT 04/01/2020 5:08 AM CDT Results for this procedure are i n the results section . MAGNESIUM STAT 04/01/2020 5:08 AM CDT Resu lts for this procedure are i n the results section . BASIC METABOLIC PANEL (7) STAT 04/01/2020 5:08 AM CDT Results for this procedure are i n the results section . CBC W/PLT COUNT & AUTO STAT 04/01/2020 5:08 AM CDT Results for this DIFFERENTIAL procedure are i n the results section . URINALYSIS W/ REFLEX URINE STAT 04/01/2020 5:04 AM CDT Results for this CULTURE procedure are i n the results section . XR CHEST 1 VIEW STAT 04/01/2020 4:58 AM CDT R esults for this PORTABLE/BEDSIDE procedure a re in the results section . ED ECG INTERPRETATION Routine 04/01/2020 4:51 AM CDT Results for this procedure are i n the results section . CRITICAL CARE Routine 04/01/2020 4:51 AM CDT Res ults for this procedure are i n the results section . after 09/03/2019 Results RHYTHM STRIP - SCAN (04/17/2020 3:11 PM CDT) Narrative Performed At This result has an attachment that is no t available. POC-Glucose meter (04/15/2020 10:05 PM CDT)Only the most recent of52 results within the time period is included. POC-Glucose Meter 124 (H)Comment: 70 - 110 mg/dL [facility] : TESTED AT [facility] [address] [facility], [id number]: Php Mysql Developer/Technic renee ID = [id number] for RAY ERVIN Specimen Blood Performing Organization Address City/State/Zipcode Phone Number [address] [address] CENTER [place] level (04/12/2020 4:26 AM CDT)Only the most recent of3 resultswithin the time period is included. Pathologist Sig nature [place] Level 0.6 (L) 0.8 - 1.2 mmol/L [facility] Specimen Blood Narrative Performed At This result has an attachment that is no t available. Performing Organization Address City/State/Zipcode Phone Number [facility] [address] [place] [address] CENTER CBC with platelet count + automated diff (04/10/2020 3:58 AM CDT)Only the most recent of10 resultswithin the time period is included. Pathologist Sig nature WBC 4.6 3.5 - 10.5 [facility] RBC 4.19 3.93 - 5.22 [facility] M/FORMERLY [facility] Hemoglobin 12.0 11.2 - 15.7 [facility] GM/DL [facility] Hematocrit 37.6 34.1 - 44.9 % [facility] MCV 89.7 79.4 - 94.8 fL [facility] MCH 28.6 25.6 - 32.2 pg [facility] MCHC 31.9 (L) 32.2 - 35.5 [facility] GM/DL [facility] RDW 13.8 11.7 - 14.4 % [facility] Platelets 92 (L) 150 - 450 K/CU [facility] MPV 12.3 9.4 - 12.3 fL [facility] nRBC 0 0 - 0 /100 WBC [facility] % Neutros 48 % [facility] % Lymphs 37 % [facility] % Monos 11 % [facility] % Eos 3 % [facility] % Baso 0 % [facility] # Neutros 2.20 1.56 - 6.13 [facility] # Lymphs 1.69 1.18 - 3.74 [facility] K/L [facility] # Monos 0.50 (H) 0.24 - 0.36 [facility]/FORM[facility] # Eos 0.13 0.04 - 0.36 [facility]/L [facility] # Baso 0.02 0.01 - 0.08 [facility] Immature 0 0 - 1 % [facility] Granulocytes-Relative [facility] Specimen Blood Performing Organization Address City/[facility]/Zipcode Phone Number [facility] [address] [place] [address] [place] Basic Metabolic Panel (04/10/2020 3:58 AM CDT)Only the most recent of6 results within the time period is included. Sodium 143 136 - 145 meq/L [facility] Potassium 4.0 3.5 - 5.1 meq/L [facility] Chloride 111 (H) 98 - 107 meq/L [facility] CO2 25 22 - 29 meq/L [facility] BUN 11 7 - 21 mg/dL [facility] Creatinine 0.76 0.57 - 1.25 [facility] mg/dL [facility] Glucose 106 (H) 70 - 105 mg/dL [facility] Calcium 9.6 8.4 - 10.2 [facility] mg/dL [facility] EGFR 79Comment: ESTIMATED mL/min/1.73 sq [facility] GFR IS NOT [facility] ACCURATE [place] CREATININE CLEARANCE IN PREDICTING GLOMERULAR FILTRATION RATE. ESTIMATED GFR IS NOT APPLICABLE FOR DIALYSIS PATIENTS. Specimen Blood Narrative Performed At Php Mysql Developer DEEPA Bettencourt [facility] ICAL CENTER Performing Organization Address City/State/Zipcode Phone Number [facility] [address] [place] [address] [place] Comprehensive metabolic panel (04/08/2020 3:42 AM CDT)Only the most recent of3 resultswithin the time period is included. Protein, Total 7.5 6.0 - 8.3 [facility] gm/dL [facility] Albumin 3.7 3.5 - 5.0 [facility] g/dL [facility] Alkaline 94 40 - 150 U/L [facility] Phosphatase [facility] Total Bilirubin 0.9 0.2 - 1.2 [facility] mg/dL [facility] Sodium 141 136 - 145 [facility] meq/L [facility] Potassium 4.0 3.5 - 5.1 [facility] meq/L [facility] Chloride 110 (H) 98 - 107 [facility] meq/L [facility] CO2 23 22 - 29 meq/L [facility] BUN 10 7 - 21 mg/dL [facility] Creatinine 0.72 0.57 - 1.25 [facility] mg/dL [facility] Glucose 123 (H) 70 - 105 [facility] mg/dL [facility] Calcium 9.6 8.4 - 10.2 [facility] mg/dL [facility] AST 28 5 - 34 U/L [facility] ALT 39 6 - 55 U/L [facility] EGFR 84Comment: mL/min/1.73 [facility] ESTIMATED GFR IS sq [facility] NOT [facility] CREATININE CLEARANCE IN PREDICTING GLOMERULAR FILTRATION RATE. ESTIMATED GFR IS NOT APPLICABLE FOR DIALYSIS PATIENTS. Specimen Blood Narrative Performed At Php Mysql Developer ID - PIAYA L [facility] ICAL CENTER Performing Organization Address City/State/Zipcode Phone Number [facility] [address] [place] [address] chest for pulmonary embolus (04/06/2020 4:30 PM CDT) Specimen Narrative Performed At FINAL REPORT [facility] Exam: CT pulmonary angiogram Clinical History: Pulmonary [...] olism. 2. 1.6 cm thyroid nodule. If indicated , ultrasound can be performed for further assessment. 3. Endplate deformity in 2 of the thorac ic vertebral bodies which may represent compression fractures, age ind eterminate. Signed: Milton Cook MD Report Verified Date/Time: 04/06/2020 16:45:26 Reading Location: [address] Reading Room Procedure Note Interface, External [...] Verified Date/Time: 04/06/2020 1 6:45:26 Reading Location: [facility] C0T [facility] Reading Room Performing Organization Address City/[facility]/Zipcode Phone Number GE RIS aPTT (04/06/2020 1:47 PM CDT)Only the most recent of2 resultswithin the time period is included. Pathologist Sig nature PTT 31.0 22.5 - 36.0 seconds [facility] Specimen Blood Narrative Performed At 6 hours after starting heparin infusion and [facility] as indicated per sliding scale Performing Organization Address City/[facility]/Zipcode Phone Number [place] [phone] [place] [address] CENTER Respiratory Panel [facility] (04/06/2020 9:15 AM CDT) Human Metapneumovirus Not detected Not detected, [facility] Rhinovirus Not detected Not detected, [facility] Influenza A Not detected Not detected, [facility] INFLUENZA A (NO [facility] SUBTYPE) [facility] Influenza A subtype H1 [facility] Influenza A Subtype H3 [facility] Influenza A Subtype [facility] H1-2009 [facility] Influenza B Not detected Not detected, [facility] Respiratory Syncytial Not detected Not detected, [facility] Virus [facility] Parainfluenza Virus 1 Not detected Not detected, [facility] Parainfluenza Virus 2 Not detected Not detected, [facility] Parainfluenza virus 3 Not detected Not detected, [facility] Parainfluenza Virus 4 Not detected Not detected, [facility] Adenovirus Not detected Not detected, [facility] Coronavirus 229E Not detected Not detected, [facility] Coronavirus HKU1 Not detected Not detected, [facility] Coronavirus NL63 Not detected Not detected, [facility] Coronavirus OC43 Not detected Not detected, [facility] Bordetella Pertussis Not detected Not detected, [facility] Chlamydophila Not detected Not detected, [facility] Pneumoniae [facility] Mycoplasma Pneumoniae Not detected Not detected, [facility] Specimen Nasopharyngeal - Nasopharyngeal wall str ucture (body structure) Narrative Performed At Other viruses and bacteria not targeted by [facility] this PCR panel cannot be excluded; therefore clinical correlation and follow up of serology, culture results, and other molecular studies is required. The results are not intended to be used as the sole means for clinical diagnosis or patient management decisions. This sample was tested at the [facility] Molecular Diagnostics Laboratory using the [employer] FilmArray Respiratory Panel. It is FDA cleared and has been verified and approved by the [facility] Molecular Diagnostics Laboratory for clinical use on nasopharyngeal swab specimens. The performance of the FilmArray RP has not been established in individuals who received influenza vaccine. Recent administration of a nasal influenza vaccine may cause false positive results for Influenza A and/or Influenza B. Performing Organization Address City/State/Zipcode Phone Number [facility] [address] [place] [address] CENTER Urinalysis w/Microscopic + Reflex to Culture (04/05/2020 7:02 PM CDT)Only the most recent of2 resultswithin the time period is included. Color, UA Yellow [facility] Clarity, UA Clear [facility] Specific [place], 1.015 1.001 - 1.035 [facility] UA [facility] pH, UA 7.0 5.0 - 8.0 [facility] Protein, UA Negative Negative [facility] Glucose, UA Negative Negative [facility] Ketones, UA Negative Negative [facility] Bilirubin, UA Negative Negative [facility] Blood, UA Negative Negative [facility] Nitrite, UA Negative Negative [facility] Leukocytes, UA Moderate (A) Negative [facility] Urobilinogen, UA 6.0 (H) 0.2 - 1.0 mg/dL [facility] RBC, UA <1 /HPF [facility] WBC, UA 14 /HPF [facility] Bacteria, UA Occasional [facility] Squam Epithel, UA 5 /HPF [facility] Specimen Source [facility] Specimen Urine - Urine specimen collection, clean catch (procedure) Narrative Performed At Php Mysql Developer ID - [auto] [facility] Php Mysql Developer ID - ann Performing Organization Address City/State/Zipcode Phone Number [facility] [address] [place] [address] CENTER Urine culture (04/05/2020 7:02 PM CDT) Pathologist Sig nature Result >100,000 col/mL [facility] Escherichia coli (A) [facility] Specimen Urine - Urine specimen collection, clean catch (procedure) Narrative Performed At <10,000 col/mL gram negative layla of a second [facility] type 40-49,000 col/mL skin krystin Organism [...] + Sulfamethoxazole >=320: Resistant Performing Organization Address [facility] Phone Number [address] [address] CENTER D-dimer (04/05/2020 6:48 PM CDT) Pathologist Sig nature D-Dimer, Quant 0.89 (H) <0.50 MG/L FEU [facility] Specimen Blood Narrative Performed At Intended Use: The D-Dimer Assay can be used [facility] to aid in the diagnosis of Deep Vein Thrombosis (DVT) and Pulmonary Embolism Disease (PED). In patients with low pre-test probability, various studies concerning STA Liatest D-dimer test have reported that with a cutoff value of 0.50 MG/L FEU, the Negative Predictive Value (NPV) regarding the exclusion of thrombosis is within 95-100% range. Performing Organization Address [facility] Phone Number [address] [address] CENTER Phosphorus (04/05/2020 6:48 PM CDT)Only the most recent of4 resultswithin the time period is included. Pathologist Sig nature Phosphorus 2.9 2.3 - 4.7 mg/dL [facility] Specimen Blood Narrative Performed At Php Mysql Developer ID - DB [facility] Performing Organization Address [facility] Phone Number [address] [place] [address] CENTER Magnesium (04/05/2020 6:48 PM CDT)Only the most recent of4 resultswithin the time period is included. Pathologist Sig nature Magnesium 1.6 1.6 - 2.6 mg/dL [facility] Specimen Blood Narrative Performed At Php Mysql Developer ID - DB [facility] Performing Organization Address City/State/Zipcode Phone Number [address] [address] CENTER SARS-CoV2/RT-PCR (Symptomatic ONLY) (04/05/2020 5:02 PM CDT)Only the most recent of2 resultswithin the time period is included. SARS-COV2/RT-PCR Not Detected Not Detected, [facility] Negative [facility] SARS-COV-2 [facility] PERFORMING LAB [facility] Specimen Other - Nasopharyngeal wall structure (b judah structure) Narrative Performed At Negative results do not preclude SARS-CoV-2 [facility] infection and should not be used as [...] the Act. Fact Sheet for Healthcare Providers: https://www.BitPass/Documents/Xpert%20Xpre ss%20SARS%20CoV-2/Fact%20Sheets/302-3802%20SAR S-COV-2%20HEALTHCARE%20PROVIDERS%20FACT%20SHEE T.pdf Fact Sheet for Healthcare Patients: https://www.[employer]Pass/Documents/Xpert%20Xpre ss%20SARS%20CoV-2/Fact%20Sheets/302-3801%20SAR S-COV-2%20PATIENT%20FACT%20SHEET.pdf Performing Laboratory: [address] [address] Performing Organization Address City/State/Zipcode Phone Number [address] [address] CENTER XR chest 1 view portable / bedside (04/05/2020 4:46 PM CDT)Only the most recent of2 resultswithin the time period is included. Specimen Narrative Performed At FINAL REPORT RIS TECHNIQUE: Frontal chest radiograph date d 04/05/2020. CLINICAL HISTORY: SOB, Fever COMPARISON STUDY: Chest radiograph dated 04/01/2020 IMPRESSION: Endotracheal and enteric tubes have been removed. Lungs are clear. No pleural effusion or pneumothorax. Cardio mediastinal silhouette is normal in size. No pulmonary edema. No f racture. Signed: Douglas Hale MD Report Verified Date/Time: 04/05/2020 17:16:45 Reading Location: [address] Reading Room Procedure Note Interface, External [...] Verified Date/Time: 04/05/2020 1 7:16:45 Reading Location: [address] nal Reading Room Performing Organization Address City/[facility] Phone Number GE RIS Lactic acid, venous (04/05/2020 4:24 PM CDT) Pathologist Sig nature Lactate, Venous 1.24 0.50 - 2.20 mmol/L [facility] Specimen Blood Narrative Performed At Php Mysql Developer ID - DB [facility] Performing Organization Address City/[facility]/Zipcode Phone Number [facility] [address] [place] [address] CENTER ECG 12 lead (04/05/2020 4:08 PM CDT)Only the most recent of3 resultswithin the time period is included. Specimen Narrative Performed At Ventricular Rate 119 BPM GE MUSE Atrial Rate 119 BPM P-R Interval 128 ms QRS Duration 84 ms Q-T Interval 308 ms QTC Calculation(Bazett) 433 ms P [place] 68 degrees R [place] 64 degrees T [place] 55 degrees Sinus tachycardia Otherwise normal ECG Confirmed by MD MCCABE MAJID ([id number]) on 020 11:22:13 AM Procedure Note Interface, External Ris In - 04/06/2020 11:22 AM CDT Ventricular Rate 119 BPM Atrial Rate 119 BPM P-R Interval 128 ms QRS Duration 84 ms Q-T Interval 308 ms QTC Calculation(Bazett) 433 ms P [place] 68 degrees R [place] 64 degrees T [place] 55 degrees Sinus tachycardia Otherwise normal ECG Confirmed by MD MCCABE MAJID ( [id number]) on 04/06/2020 11:22:13 AM Performing Organization Address City/[facility] Cent[facility]ode Phone Number GE MUSE Hepatic function panel (04/04/2020 3:21 PM CDT)Only the most recent of3 results within the time period is included. Pathologist Sig nature Protein, Total 7.4 6.0 - 8.3 gm/dL [facility] Albumin 3.8 3.5 - 5.0 g/dL [facility] Total Bilirubin 1.4 (H) 0.2 - 1.2 mg/dL [facility] Bilirubin, Direct 0.7 (H) 0.1 - 0.5 mg/dL [facility] Alkaline Phosphatase 102 40 - 150 U/L [facility] AST 67 (H) 5 - 34 U/L [facility] ALT 40 6 - 55 U/L [facility] Specimen Blood Narrative Performed At Php Mysql Developer ID - NTP [facility] Performing Organization Address City/State/Zipcode Phone Number [facility] [address] [place] [address] CENTER EKG-SCANNED (04/04/2020 1:41 PM CDT) Narrative Performed At This result has an attachment that is no t available. US abdomen limited (04/03/2020 5:45 AM CDT) Specimen Narrative Performed At FINAL REPORT [address] History: Evaluate for cirrhosis Abdominal ultrasound dated 04/03/2020 Comparison: None Comment: Real-time transabdominal ultr asound of the right upper quadrant abdomen was [...] liver protocol MRI is recommended. Signed: Gregorio Delgadillo MD Report Verified Date/Time: 04/03/2020 06:20:42 Procedure Note Interface, External Ris In [...] liver protocol MRI is recommended. Signed: Gregorio Delgadillo MD Report Verified Date/Time: 04/03/2020 0 6:20:42 Performing Organization Address City/State/Zipcode Phone Number [facility] Hemoglobin A1c (04/03/2020 3:34 AM CDT) Pathologist Sig nature Hemoglobin A1C 6.0 4.3 - 6.1 % [facility] Specimen Blood Performing Organization Address City/State/Zipcode Phone Number [address] [address] CENTER MR brain without IV contrast (04/02/2020 8:22 PM CDT) Specimen Narrative Performed At FINAL REPORT [address] MR, BRAIN, WITHOUT CONTRAST INDICATION: Neuro deficit, [...] Colby More MD Report Verified Date/Time: 04/02/2020 20:37:03 Procedure Note Interface, External Ris In [...] 1:14 PM CDT) Barbiturate Screen Negative Negative [facility] Benzodiazepine Screen Positive (A) Negative [facility] Cocaine (Metab.) Screen Negative Negative [facility] Methadone Screen Negative Negative [facility] Opiate Screen Negative Negative [facility] Cannabinoid Screen Negative Negative [facility] Amph/Methamph Screen Negative Negative [facility] Phencyclidine Screen Negative Negative [facility] pH, UA 6.5 5.0 - 8.0 [facility] Specimen Urine Narrative Performed At [facility] Cocaine 300 ng/mL Cannabinoid 50 ng/mL Benzodiazepine 200 ng/mL Barbiturate 200 ng/mL Phencyclidine 25 ng/mL Opiate 300 ng/mL Methadone 300 ng/mL Amphetamine/ 1000 ng/mL Methamphetamine This assay provides an unconfirmed qualitative test result for the clinical management of patients in emergency situations. Chain of custody not maintained. Some bwet-xyd-kwzujgb medications, as well as adulterants, may cause inaccurate results. Clinical correlation should be applied. A more comprehensive drug screen or confirmation of a detected drug may be performed upon request. Php Mysql Developer ID - ADMIN Performing Organization Address City/[facility]/Zipcode Phone Number [address] [phone] [place] Drug screen, urine, comprehensive (04/02/2020 1:12 PM CDT) Specimen Urine Narrative Performed At This result has an attachment that is no t available. Ammonia (04/02/2020 12:22 PM CDT) Pathologist Sig nature Ammonia 60 18 - 72 mol/L [facility] Specimen Blood Narrative Performed At Php Mysql Developer ID - ABILIO E [facility] Performing Organization Address City/[facility]/Zipcode Phone Number [address] [address] CENTER Blood culture (04/02/2020 12:08 PM CDT)Only the most recent of2 resultswithin the time period is included. Pathologist Sig nature Result No growth in 5 days [facility] Specimen Blood - Entire left upper arm (body stru cture) Performing Organization Address City/State/Zipcode Phone Number [facility] [address] [place] [address] CENTER EEG 12-26 HR Continuous Monitoring with Video (04/02/2020 6:32 AM CDT) Specimen Narrative Performed At Date of EE04/01/2020 to 04/02/2020 GE RIS DATE OF REPORT: 04/02/2020 ACC: [id number] EEG Number: [id number] Start time: 04/01/2020 @ 14:41 PM Stop time: 04/02/2020 @ 11:30 AM ICD-10: R56.9 CPT Code: 04778 HISTORY: 54 y.o. Female with ADHD, bipol ar disorder, breast cancer, and hepatitis who was transferred due to concern for seizures requiring intubation. MEDICATIONS: No anti-seizure medications . TECHNICAL SUMMARY: This is a digital video-EEG recorded wit h 32 input channels reviewed with bipolar and referential montages us ing the modified combinatorial system nomenclature. DESCRIPTION OF RECORD: During the maximally alert state an 8.5- 9.5 Hz posterior dominant rhythm was seen that was symmetric, reac tive to eye opening and well regulated. More anteriorly, low voltag e frontocentral beta predominated. Drowsiness was character ized by decreased eye blinks, alpha attenuation and [...] does not exclude the possibility of epilepsy. I f the clinical suspicion of epilepsy remains, consider additional EE G recordings. Avtar Parker MD Neurophysiology Fellow I have reviewed the electroencephalogram and this report and agree with its interpretation. Freedom Mckay MD Epilepsy Attending Procedure Note Interface, External Ris In - 04/02/2020 1:28 PM CDT Date of EE04/01/2020 to 04/02/2020 DATE OF REPORT: 04/02/2020 ACC: [id number] EEG Number: [id number] Start time: 04/01/2020 @ 14:41 PM Stop time: 04/02/2020 @ 11:30 AM ICD-10: R56.9 CPT Code: 22694 HISTORY: 54 y.o. Female with ADHD, bipol ar disorder, breast cancer, and hepatitis who was transferred due to concern for seizures requiring intubation. MEDICATIONS: No anti-seizure medications . TECHNICAL SUMMARY: This is a digital video-EEG recorded wit h 32 input channels reviewed with bipolar and referential montages us ing the modified combinatorial system nomenclature. DESCRIPTION OF [...] Mckay MD Epilepsy Attending Performing Organization Address City/State/Zipcode Phone Number [facility] Vitamin B12 and Folate (04/01/2020 2:13 PM CDT) Pathologist Sig nature Vitamin B12 929 (H) 213 - 816 pg/mL [facility] Folate 15.80 >=7.00 ng/mL [facility] Specimen Blood Narrative Performed At Php Mysql Developer ID - NTP [facility] Performing Organization Address City/[facility]/Zipcode Phone Number [facility] [address] [place] [address] CENTER TSH/Free T4 If Indicated (04/01/2020 2:13 PM CDT) Pathologist Sig nature TSH 0.057 (L) 0.350 - 4.940 uIU/mL [facility] Specimen Blood Narrative Performed At Php Mysql Developer ID - NTP [facility] Performing Organization Address City/[facility] [place] [address] [place] T4, free (04/01/2020 2:13 PM CDT) Pathologist Sig nature Free T4 1.19 0.70 - 1.48 ng/dL [facility] Specimen Blood Narrative Performed At Php Mysql Developer ID - NTP [facility] Performing Organization Address [facility] [place] [address] [place] PT/aPTT (04/01/2020 5:08 AM CDT) Pathologist Sig nature Protime 15.4 (H) 11.9 - 14.2 seconds [facility] INR 1.3 <=5.9 [facility] PTT 25.8 22.5 - 36.0 seconds [facility] Specimen Blood Narrative Performed At Effective 04/05/2019: PT Reference Range [facility] Change New: 11.9-14.2 Previous: 11.7-14.7 RECOMMENDED COUMADIN/WARFARIN INR THERAPY RANGES STANDARD DOSE: 2.0-3.0 Includes: PROPHYLAXIS for venous thrombosis, systemic embolization; TREATMENT for venous thrombosis and/or pulmonary embolus. HIGH RISK: Target INR is 2.5-3.5 for patients wiht mechanical heart valves. Performing Organization Address City/State/Zipcode Phone Number [address] [address] CENTER Troponin I (04/01/2020 5:08 AM CDT) Pathologist Sig nature Troponin I 0.01 0.00 - 0.03 ng/mL [facility] Specimen Blood Narrative Performed At Troponin I (TnI) levels must be interpreted [facility] in the context of the presenting symptoms and the clinical findings. Elevated TnI levels indicate myocardial damage, but are not specific for ischemic heart disease. Elevated TnI levels are seen in patients with other cardiac conditions (including myocarditis and congestive heart failure), and slight TnI elevations occur in patients with other conditions, including sepsis, renal failure, acidosis, acute neurological disease, and persistent tachyarrhythmia. Php Mysql Developer ID - NTP Performing Organization Address [facility]/Zipcode Phone Number [address] [address] CENTER Creatine Kinase (CK) (04/01/2020 5:08 AM CDT) Pathologist Sig [facility] Total CK 79 29 - 200 U/L [facility] Specimen Blood Narrative Performed At Php Mysql Developer ID - ZAHRA M [facility] Performing Organization Address City/[facility] Phone Number [address] [address] [place] ECG/EKG Interpretation (04/01/2020 4:51 AM CDT) Narrative Performed At Glendy Clayton MD 04/15/2020 3:33 PM ECG/EKG Interpretation Date/Time: 04/15/2020 3:33 PM Performed by: Glendy Clayton MD Authorized by: Arturo Downs MD The ECG was interpreted by ED physician. The ECG is in terpreted as sinus tachycardia. Rate is tachycardic. Heart rate is [address] segments normal. T waves normal. [place] is normal. Other findings include: prolonged QTc in terval. Clinical Impression: non-specific ECGECG reviewed and does no t meet STEMI criteria. Patient tolerance: Patient tolerated the procedu re well with no immediate complications CRITICAL CARE (04/01/2020 4:51 AM CDT) Narrative Performed At Glendy Clayotn MD 04/15/2020 3:33 PM Critical Care Performed by: Glendy Clayton MD Authorized by: Glendy Clayton MD Total critical care time: 30 minutes Critical care was necessary to treat or prevent imminent or life-threatening deterioration of the fo llowing conditions: respiratory failure and JEWELRY FACER failure or compromise. Critical care was time [...] studies and re-evaluation of patient's condition. after 09/03/2019 Insurance Payer Benefit Plan / Subscriber ID Effective Dates Phone Addre ss Type Group MEDICARE MEDICARE A B [id number] 2005-Prese Medicare nt [place] MED[place]ID [id number] 2017-Prese MEDICAID [place] nt CDC REVIEW CDC REVIEW [id number] 2020-[place] [address] [place] [address] MEDICAID MEDICAID OF [id number] 2015-[place] dicaid [place] t Advance Directives For more information, please contact: [phone] Code Status Date Activated Date Inactivated Comments Full Code 04/01/2020 6:44 AM 04/16/2020 10:45 AM This code status was determined by: Patient Full Code 04/22/2016 12:20 PM 04/29/2016 5:47 PM This code status was determined by: Patient
--- OUTSIDE RECORDS SUMMARY | 2020-09-03 22:47 | XMS REPORT | Continuity of Care Document ---
:1965 Author Organization [facility] t Address [facility] Baker [address] [place] [id number] Care Team Providers Name Role Phone JANEEN Primary Care Physician Unavailable Rosa Maria BAER, R Attending Clinician Unavailable Janeen MOYA Attending Clinician Sam BAER Attending Clinician Unavailable JANEEN Attending Clinician Unavailable MARIA M Attending Clinician Unavailable Guicho THOMASONR Attending Clinician KOREY Attending Clinician Unavailable Korey MOYA Attending Clinician Maria M GOLDSTEINP Attending Clinician Harrison BAER Attending Clinician Forrest [...] Admitting Clinician Unavailable Payers Payer Name Policy Type Policy Effective Expiration Source Number Date Date MEDICAREMEDICARE PART A [id number] 2005 MD Hawley AND 00:00:00 [id number] 2004-Pr [id number] , [place] [id number] 2018 MD Juan Antonio melendez TRADITIONALMEDICAID [place] 00:00:00 TRADITIONAL STAR PLUS [id number] esentMedicaid MEDICAREMEDICARE A [id number] 2005 [facility]wan [id number] 2004-Pr 00:00:00 - Medical [facility] MEDICAIDMEDICAID [id number] [place] [id number] 2016 00:00:00 - Medical -Present [place] CDC REVIEWCDC [id number] [facility] s [id number] 00:00:00 [facility] [id number] MEDICAIDMEDICAID OF [id number] 2015 NELL S chava Kwan [id number] 2014-P 00:00:00 - Medical resentMedicaid [place] Problems Condition Condition Condition Status Onset Resolution Last Treating Co mments Source Name Details Category Date Date Treatment Clinician Date E-coli UTI E-coli UTI Disease Active 2019- [facility] 00 Center Tobacco Tobacco Disease Active 2019- [facility] abuse abuse - [facility] - 00:[facility] Medical 00 Center Witnessed Witnessed Disease Active 2019- [facility] seizure-li seizure-li 5- Keyla kes - ke ke 00:00: Medical activity activity 00 Center Anxiety Anxiety Disease Active 2019- [facility] and and 04-01 [facility] - depression depression 00:00: Me dical 00 Center Obesity Obesity Disease Active [facility] (BMI (BMI 5-25 [facility] - 30-39.9) 30-39.9) 00:00: Medica l 00 Center Hypertensi Hypertensi Disease Active M D on on 05-31 Anderso 00:00: n 00 Impaired Impaired Disease Active Overview: glucose glucose 05-30 Formattin Georges so tolerance tolerance 00:00: g of this n 00 note might be different from the original. Lab Results Component Value Date A1C 5.8 (H) 9 A1C 5.6 7 Osteoarthr Osteoarthr Disease Active Overview : itis itis 05-29 2015:IMPR Anderso 00:00: ESSION:1. n 00 Small central disc herniatio n at L2-L3 with minimal indentati on of thethecal sac and mild narrowing of the spinal canal.2. Changes of degenerat rex disc disease and facet degenerat rex diseaseth roughout the lumbar spine as described above. Portal Portal Disease Active Overview: hypertabdelrahman hypertensi 05-14 Anderso on on 00:00: 9:Hepatos n 00 plenomega ly. There are findings suggestiv e of portal hypertens ion. Generalize Generalize Disease Active M D d anxiety d anxiety 05-03 Douglas rso disorder disorder 00:00: n 00 Sleep Sleep Disease Active apnea apnea 05-02 Anderso 00:00: n 00 Chronic Chronic Disease Active obstructiv obstructiv 24 An derso e e 00:00: n pulmonary pulmonary 00 disease disease Anemia in Anemia in Disease [...] 34.5 (L) 9 HCT 33.8 (L) 9 Anemia in Anemia in Disease [...] Component Value Date PLT 66 (L) 9 Obesity Obesity Disease Active Overview: 07-09 Formattin Anderso 00:00: g of this n 00 note might be different from the original. BMI Readings from Last 2 Encounter s: 05/29/19 35.34 kg/m2 05/01/19 40.93 kg/m2 Bipolar Bipolar Disease Active [facility] disorder disorder 07-08 [facility] - with with 00:00: Medical psychotic psychotic 00 Cent er features features Schizoaffe Schizoaffe Disease Active M D ctive ctive 07-08 Anderso disorder disorder 00:00: n 00 At risk At risk Disease Active for [...] portal hypertens ion. 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 2-05 Douglas rso of central of central 00:00: n portion of portion of 00 left left female female breast breast Estrogen Estrogen Disease Active 2016-11 MD receptor receptor 2-05 Shahab o positive positive 00:00: n status status 00 (ER+) (ER+) Severe Severe Disease Active 2005-[address] [facility] bipolar I bipolar I - Luke s - disorder, disorder, 00:00: Medi shelley current or current or 00 Ce nter most most recent recent episode episode depressed depressed Adjustment Adjustment Disease Active 2005-[address] disorder disorder - [facility] - with with 00:00: Medical depressed depressed 00 Cent er mood mood History of History of Disease Active Overview : hepatitis hepatitis Per ID Douglas rso C C team: n "She denies blood transfusi on before 1991, but she recalled using dilaudid IV by herself and possible sharing needles." Completed 12 weeks of [facility] under care of Dr. Manley in January 2019. 528 9 08:25HepC RNA PCR Qnt-[place] Undetecte d IU/mL (Undetec jassi) History of Past Illness Condition Condition Condition Status Onset Resolution Last Treating Co mments Source Name Details Category Date Date Treatment Clinician Date Leukocytos Leukocytos Disease Resolve 2020-04-08 2020-04-[address] [facility] is is d 5-28 00:00:00 13:20:47 [facility] - 00:00: Medical 00 [place] Shortness Shortness Disease Resolve 2020-04-08 2020-04-[address] of breath of breath d 6-15 00:00:00 13:20:50 [facility] - 00:[facility]: Medical 00 [place] Abnormal Abnormal Disease Resolve 2019-11-27 2019-11-27 findings findings d - 00:00:00 23:25:42 An derso on on 00:00: n cytologica cytologica 00 l and l and histologic histologic al al examinatio examinatio n of urine n of urine Altered Altered Disease Resolve 2019-11-27 2019-11-27 mental mental d 05-14 00:00:00 23:25:49 Shahab o status status 00:00: n 00 Delirium Delirium Disease Resolve 2019-11-27 2019-11-27 d - 00:00:00 23:25:58 Shahab o 00:00: n 00 [...] Physical Physical Disease Resolve 2019-11-23 2019-11-23 deconditio deconditisarika d 00:00:00 18:07:31 Anderso seth ann n Allergies, Adverse Reactions, Alerts This patient has no known allergies or adverse reactions. Family History Family Member Diagnosis Comments Start Date Stop Date Source Family member -Breast cancer MD Douglas couch Family member Ovarian cancer MD Douglas couch Social History Social Habit Start Date Stop Date Quantity Comments Source Sex Assigned At MD Gudino on Tobacco use and 2019-11-23 2019-11-23 Never used MD Gudino on exposure 00:00:00 00:00:00 Alcohol intake 2019-11-23 2019-11-23 Current non-drinker Sg Hawley 00:00:00 00:00:00 of alcohol (finding) Tobacco Comment 2019-11-23 2019-11-23 Down from 2 ppd to M Chayo Hawley 00:00:00 00:00:00 5 cigarettes max per day Alcohol Comment 2018-05-05 2018-05-05 Denies any recent MD Hawley 00:00:00 00:00:00 use, remote hx Smoking Status Start Date Stop Date Source Current every day smoker 2019-11-23 00:00:00 MD Hawley Medications Ordered Filled Start Stop Current Ordering Indication Dosage Frequency Signature Comments Components Source Medication Medication Date Date Medication? Clinician (SIG) Name Name anastrozole 2019-11 Yes Mucinous TAKE 1 (ARIMIDEX) 0-12 carcinoma TABLET BY Andnoemi 1 mg tablet 00:00: of central MOUTH n 00 portion of EVERY DAY left female breast FreeStyle FreeStyle 2020-0 Yes Lea as [facility] Roxy 14 Roxy 14 8-06 Millender directed [facility] - Day Sensor Day Sensor 00:00: M [facility] Metformin Metformin 2020-0 Yes Lea [address] [facility] HCl HCl 8-06 Millender with a [facility] - 00:00: meal [facility] FreeStyle FreeStyle 2020-0 Yes Lea as [facility] Roxy Roxy 8-06 Millender directed [facility] - [place] 00:00: [facility] Levemir Levemir 2020-0 Yes Lea as [facility] FlexTouch FlexTouch 8-06 Millender directed [facility] - 00:[facility]: [facility] Pen Lloyd Pen Lloyd 2020-0 Yes Lea as [facility] 8-06 Millender directed [facility] - 00:00: Memoria [facility]pat[facility] ent Clinics anastrozole 2020-0 2020- No Mucinous TAKE 1 MD (ARIMIDEX) 7- 10-12 carcinoma TABLET BY Anderso 1 mg tablet 00:00: 00:00 of central MOUTH n 00 :00 portion of EVERY DAY left female breast acetaminoph 2019-0 Yes 1{tbl} Take 1 MD en-codeine 6-23 tablet by Douglas avina (TYLENOL-CO 14:39: mouth 2 n DEINE #3) 39 (two) 300 mg-30 times a mg tablet day as needed for moderate pain. albuterol 0 Yes 1{puff} Inhale 1-2 MD (VENTOLIN 6-23 puffs by Shahab o HFA,PROAIR 14:39: mouth n HFA) 90 39 every 4 mcg/puff (four) inhaler hours as needed for wheezing or shortness of breath. anastrozole 2019-0 Yes 1mg QD Take [address] (ARIMIDEX) 6-09 by mouth [facility] - 1 mg tablet 08:45: daily. Medi shelley 06 Center umeclidiniu 0 Yes 1{puff} QD Inhale [address] [facility] [facility] m-vilantero 6-09 puff by [facility] - L (ANORO 08:45: mouth via Medi shelley ELLIPTA) 06 inhaler Center 62.5-25 daily. mcg/actuati on DsDv acetaminoph 0 Yes 1{tbl} Take [address] en-codeine 6-09 tablet by Jeet s - (TYLENOL 08:45: mouth Medical #3) 300-30 06 every 8 Center mg per (eight) tablet hours as needed (severe pain) . FLUoxetine 2020- No 20mg QD Take [address] (PROZAC) 20 04-15- by mouth Oj es - MG tablet 12:19: 00:00 daily. Medic al 24 :00 Center dextroamphe 2019-0 2020- No dextroamph [facility] tamine-amph 04-15- etamine-am L ukes - etamine 12:10: 00:00 phetamine Medi shelley (ADDERALL) 22 :00 20 mg Center 20 mg Tab tablet tablet HYDROcodone 2020- No Take by [facility] -acetaminop 04-15-06 mouth. [facility] - hen 12:10: 00:00 Medical (VICODIN) 22 :00 Center 5-300 mg Tab QUEtiapine 2020-0 Yes 200mg Q.5D Take [address] (SEROQUEL) 6-08 tablets [facility] - 50 MG 00:00: (200 mg Medical tablet 00 total) by Center mouth 2 (two) times daily. lithium 150 2019-0 Yes 600mg Take [address] [facility] [facility] MG capsule 6-08 capsules [facility]ukes - 00:00: (600 mg Medical 00 total) by Center mouth 2 (two) times daily with breakfast and dinner. albuterol 2019-2020- No 2{puff} Inhale [address] HFA - 06-08 puffs by [facility] - (VENTOLIN 00:00: 23:59 mouth via Me dical HFA) 90 00 :00 inhaler Center mcg/actuati every 6 on inhaler (six) hours as needed for Wheezing. lithium 150 2019-2019- No 450mg Take [address] MG capsule 04-15-08 capsules Luke s - 00:00: 00:00 (450 mg Medical 00 :00 total) by Center mouth 2 (two) times daily with breakfast and dinner. QUEtiapine 2019-0 2019- No 150mg Q.5D Take [address] (SEROQUEL) 6- 06-08 tablets [facility] - 50 MG 00:00: 00:00 (150 mg Medical tablet 00 :00 total) by Center mouth 2 (two) times daily. clonazePAM 2019-2019- No 2mg Take [address] (KLONOPIN) 04-13-06 by mouth 2 Keyla kes - 2 MG tablet 13:29: 00:00 (two) Medi shelley 35 :00 times Center daily as needed for Anxiety. QUEtiapine 2019-0 2020- No 100mg QD Take [address] (SEROQUEL) 04-13 06-06 mg by [facility] - 100 MG 13:28: 00:00 mouth Medical tablet 37 :00 nightly. Center FLUoxetine 2019-0 2019- No 10mg QD Take [address] (PROZAC) 10 04-13 06-08 tablet (10 L ukes - MG tablet 00:00: 00:00 mg total) Me dical 00 :00 by mouth Center daily. lithium 150 2019-0 2019- No 300mg Take [address] [facility] MG capsule 5-25 05-25 mg by [facility] - 05:02: 00:00 mouth. Medical 54 :00 Center topiramate 2019-0 2019- No 50mg Q.5D Take [address] [facility] (TOPAMAX) 5-25 05-25 by mouth 2 Oj es - 50 MG 05:02: 00:00 (two) Medical tablet 53 :00 times Center daily. pregabalin 2019-0 2020- No 50mg [id number] Take [address] [facility] (LYRICA) 50 5-25 05-25 [id number] by mouth 3 [facility] - MG capsule 05:02: 00:00 3D (three) Med ical 47 :00 times Center daily. dextroamphe 2019- 2020- No 10mg Take [address] [address] tamine-amph 5-25 05-25 by mouth. Keyla kes - etamine 5 05:01: 00:00 Medical mg Tab 55 :00 Center FLUOXETINE, 2020- No 40mg [address] BULK, MISC 04-01-25 Miscellane Keyla kes - 05:01: 00:[address] Medical 52 :00 . [place] dextroamphe 2019-0 2020- No 20mg Take 20 mg MD tamine-amph 1-16 -16 by mouth And erso etamine 20 17:35: 00:00 twice n mg tab 48 :00 daily. polyethylen 2020-0 Yes Constipatio 17g Take 17 g MD e glycol 1-16 n, not by mouth Georges so (MIRALAX) 00:00: otherwise daily. n 17 00 specified gram/dose powder anastrozole 2019-2019- No Mucinous 1mg Take 1 MD (ARIMIDEX) [...] mouth n capsule 00 twice daily. clonazePAM Yes 1{tbl} Take 1 MD (KlonoPIN) 1-15 tablet by Douglas rso 2 mg tablet 00:00: mouth as n 00 needed. busPIRone 2019- Yes 1{tbl} Take 1 MD (BUSPAR) 10 1-15 tablet by And erso mg tablet 00:00: mouth 4 n 00 (four) times a day. QUEtiapine Yes 1{tbl} Take 1 MD (SEROquel) 1-15 tablet by Douglas rso 50 mg 00:00: mouth n tablet 00 daily. QUEtiapine 2020- No quetiapine [facility] (SEROQUEL) 1-15 06-07 300 mg [facility] - 300 MG 00:00: 00:00 tablet Medical tablet 00 :00 Center anastrozole 2020- No Mucinous 1mg Take 1 MD (ARIMIDEX) 06-06-16 carcinoma tablet (1 Anderso 1 mg tablet [...] by n 00 mouth daily. lithium 300 2020- No lithium [facility] MG capsule 04-20 06-08 carbonate Oj es - 00:00: 00:00 300 mg Medical 00 :00 capsule [place] Paxil Paxil Yes Lea [address] [facility] [address] Millender in the [facility]ukes - morning [facility] Adderall Adderall Yes Lea [address] Millender [facility] Risperdal Risperdal Yes Lea [address] [facility] Millender [facility] [place] Yes Lea (450 mg) [address] Carbonate Carbonate Millender capsule [facility] Quetiapine Quetiapine Yes Lea [address] [facility] Fumarate Fumarate Millender at bedtime [facility] Klonopin Klonopin Yes Lea [address] Millender [facility] Vital Signs Vital Name Observation Time Observation Value Comments Source Systolic blood 2020-04-16 06:55:00 115 mm[Hg] [facility] Diastolic blood 2020-04-16 06:55:00 75 mm[Hg] [facility] Heart rate 2020-04-16 06:55:00 104 /min [facility] Body temperature 2020-04-16 06:55:00 36.39 Mansi [facility] Respiratory rate 2020-04-16 06:55:00 16 /min [facility] Oxygen saturation in 2020-04-16 06:55:00 93 /min [facility] Arterial blood by Medical Ce nter Pulse oximetry Body weight 2020-04-04 10:17:00 91.899 kg [facility] BMI 2020-04-04 10:17:00 35.45 kg/m2 [facility] Body height 2020-04-01 13:00:00 161 cm [facility] Heart rate 2019-11-23 17:10:00 93 /min MD Georges jarrett Body temperature 2019-11-23 17:10:00 36.72 Mansi MD Hernan duncan Respiratory rate 2019-11-23 17:10:00 18 /min MD Hernan duncan Body weight 2019-11-23 17:10:00 92.8 kg MD Georges jarrett BMI 2019-11-23 17:10:00 35.80 kg/m2 MD Georges jarrett Procedures Procedure Date / Time Performing Clinician Source Performed RHYTHM STRIP - SCAN 2020-04-17 15:11:17 Provider, Default [facility] POCT-GLUCOSE METER 2020-04-15 22:05:00 Arturo Downs [facility] POCT-GLUCOSE METER 2020-04-15 12:44:00 Arturo Downs [facility] POCT-GLUCOSE METER 2020-04-15 08:15:00 YareliArturo [facility] POCT-GLUCOSE METER 2020-04-14 21:19:00 Lanier, Samantha Haskins [facility] POCT-GLUCOSE METER 2020-04-13 17:03:00 Lanier, Samantha Carranzan [facility] POCT-GLUCOSE METER 2020-04-13 11:55:00 Lanier, Samantha Carranzan [facility] POCT-GLUCOSE METER 2020-04-13 08:22:00 [facility] 2020-04-12 20:48:00 [facility]SE METER 2020-04-12 17:18:00 [facility] PO[facility]SE METER 2020-04-12 12:10:00 Lanier, Samantha Carranzan [facility] POCT-GLUCOSE METER 2020-04-12 08:32:00 Lanier, Samantha Carranzan [facility] LITHIUM LEVEL 2020-04-12 04:26:00 Jairo Mata [facility] POCT-GLUCOSE METER 2020-04-11 21:49:00 [facility] PO[facility]COSE METER 2020-04-11 16:42:00 Lanier, Samantha Carranzan [facility] POCT-GLUCOSE METER 2020-04-11 10:52:00 Lanier, Samantha Carranzan [facility] POCT-GLUCOSE METER 2020-04-11 06:55:00 Lanier, Samantha Carranzan [facility] POCT-GLUCOSE METER 2020-04-10 20:46:00 Lanier, Samantha Carranzan [facility] POCT-GLUCOSE METER 2020-04-10 17:42:00 [facility] PO[facility]UCOSE METER 2020-04-10 11:07:00 [facility] POCT-[facility]UCOSE METER 2020-04-10 07:12:00 Lanier, Samantha Haskins [facility] BASIC METABOLIC PANEL (7) 2020-04-10 03:58:00 [facility] W/PLT COUNT & AUTO 2020-04-10 03:58:00 [facility]SE [facility] 2020-04-09 21:30:00 [facility] POCT-[facility]UCOSE METER 2020-04-09 17:05:00 Lanier, [facility] POCT-GLUCOSE METER 2020-04-09 07:13:00 Lanier, Samantha Haskins [facility] LITHIUM LEVEL 2020-04-09 04:06:00 [facility]ier[facility] POCT-GLUCOSE METER 2020-04-08 21:22:00 [facility]ier[facility] POCT-GLUCOSE METER 2020-04-08 18:08:00 Lanier, Samantha [facility] POCT-GLUCOSE METER 2020-04-08 12:36:00 Lanier, Samantha Haskins [facility] COMPREHENSIVE METABOLIC 2020-04-08 03:42:00 [facility] CBC W/PLT COUNT & AUTO 2020-04-08 03:42:00 Seanformerly [facility] POCT-GLUCOSE METER 2020-04-07 21:08:00 [facility] POCT-GLUCOSE METER 2020-04-07 17:20:00 [facility] POCT-GLUCOSE METER 2020-04-07 12:02:00 [facility] POCT-GLUCOSE METER 2020-04-07 07:55:00 [facility] COMPREHENSIVE METABOLIC 2020-04-07 04:24:00 Bartsch, [facility] CBC W/PLT COUNT & AUTO 2020-04-07 04:24:00 Micheal [facility] POCT-GLUCOSE METER 2020-04-06 21:01:00 MichealFormerly [facility] CHEST PE TEST DESIGN 2020-04-06 16:30:00 [facility] 2020-04-06 13:47[facility]00 [facility] PO[facility]SE [facility] 2020-04-06 11:56:00 Micheal [facility] RESPIRATORY PANEL [facility] 2020-04-06 09:15:00 [facility] 2020-04-06 07:41:00 Seanformerly [facility] COMPREHENSIVE METABOLIC 2020-04-06 03:34:00 Micheal [facility] APTT 2020-04-06 03:34:00 [facility] CBC W/PLT COUNT & AUTO 2020-04-06 03:34:00 Micheal [facility] POCT-GLUCOSE METER 2020-04-05 23:20:00 [facility] URINE CULTURE 2020-04-05 19:02:[address] [facility] URINALYSIS W/ REFLEX URINE 2020-04-05 19:02:[address] [facility] D-DIMER 2020-04-05 18:48:00 [facility] ED BASIC METABOLIC PANEL (7) 2020-04-05 18:48:[address] [facility] MAGNESIUM 2020-04-05 18:48:[address] [facility] PHOSPHORUS 2020-04-05 18:48:[address] [facility] CBC W/PLT COUNT & AUTO 2020-04-05 18:48:00 [facility] DIFFERENTIAL [facility] SARS-COV2/RT-PCR ([facility] & 2020-04-05 17:02:00 Melody Burton [facility] - REF LABS) [facility] POCT-GLUCOSE METER 2020-04-05 16:51:00 [facility] XR CHEST 1 VIEW 2020-04-05 16:46:00 [facility] PORTABLE/BEDSIDE [facility] LACTIC ACID, VENOUS 2020-04-05 16:24:00 [facility] ECG 12-LEAD 2020-04-05 16:08:18 [facility] ED ECG 12-LEAD 2020-04-05 13:27:01 [facility] POCT-GLUCOSE METER 2020-04-05 11:22:00 [facility] POCT-GLUCOSE METER 2020-04-05 08:11:00 [facility] POCT-GLUCOSE METER 2020-04-04 20:58:00 [facility] POCT-GLUCOSE METER 2020-04-04 17:52:00 [facility] HEPATIC FUNCTION PANEL 2020-04-04 15:21:00 [facility] CBC W/PLT COUNT & AUTO 2020-04-04 15:20:00 [facility] REPORT OF PROCEDURE - 2020-04-04 13:41:29 Provider [facility] - ENDOSCOPY SCAN [facility] POCT-GLUCOSE METER 2020-04-04 11:41:00 [facility] POCT-GLUCOSE METER 2020-04-04 08:55:00 [facility] BASIC METABOLIC PANEL (7) 2020-04-04 05:30:00 Chantell Larson CH I [facility] MAGNESIUM 2020-04-04 05:30:00 [facility] ED PHOSPHORUS 2020-04-04 05:30:00 [facility] ED CBC W/PLT COUNT & AUTO 2020-04-04 05:30:00 Kirit De La Cruz [facility] POCT-GLUCOSE METER 2020-04-03 21:53:00 [facility] POCT-GLUCOSE METER 2020-04-03 17:49:00 [facility] POCT-GLUCOSE METER 2020-04-03 11:26:00 [facility] POCT-GLUCOSE METER 2020-04-03 07:24:00 [facility] US ABDOMEN LIMITED 2020-04-03 05:45:00 [facility] HEPATIC FUNCTION PANEL 2020-04-03 03:34:00 [facility] BASIC METABOLIC PANEL (7) 2020-04-03 03:34:00 Chantell Larson CH I [facility] MAGNESIUM 2020-04-03 03:34:00 [facility] ED PHOSPHORUS 2020-04-03 03:34:00 [facility] ED HEMOGLOBIN A1C 2020-04-03 03:34:00 [facility] CBC W/PLT COUNT & AUTO 2020-04-03 03:34:00 Kirit De La Cruz [facility] POCT-GLUCOSE METER 2020-04-02 21:09:00 [facility] MR BRAIN WITHOUT IV 2020-04-02 20:22:00 Lorene Mcclure [facility] POCT-GLUCOSE METER 2020-04-02 17:17:00 [facility] RAPID DRUG SCREEN, URINE 2020-04-02 13:14:00 Lorene Mcclure [facility] DRUG SCREEN, URINE, 2020-04-02 13:12:00 Lorene Mcclure [facility] AMMONIA 2020-04-02 12:22:00 Denisse [facility] BLOOD CULTURE 2020-04-02 12:08:00 Denisse [facility] POCT-GLUCOSE METER 2020-04-02 11:00:00 [facility] POCT-GLUCOSE METER 2020-04-02 08:33:00 [facility] EEG 12-26 HR CONTINUOUS 2020-04-02 06:32:00 Glendy Clayton [facility] - MONITORING WITH VIDEO Medical Ce nter BASIC METABOLIC PANEL (7) 2020-04-02 04:43:00 Chantell Larson [facility] I [facility] CBC W/PLT COUNT & AUTO 2020-04-02 04:43:[address] [facility] POCT-GLUCOSE METER 2020-04-02 01:53:00 [facility]SE METER 2020-04-01 20:44:00 [facility] 2020-04-01 18:46:00 Denisse [facility] POCT-GLUCOSE METER 2020-04-01 17:57:00 Denisse [facility] TSH/FREE T4 IF INDICATED 2020-04-01 14:13:00 Denisse [facility] VITAMIN B12 AND FOLATE 2020-04-01 14:13:00 Denisse [facility] LITHIUM LEVEL 2020-04-01 14:13:00 [facility] T[facility], FREE 2020-04-01 14:13:00 Denisse [facility] [facility] BLOOD CULTURE 2020-04-01 14:11:00 Denisse [facility] POCT-GLUCOSE METER 2020-04-01 12:22:00 Denisse [facility] ECG 12-LEAD 2020-04-01 08:31:07 Unknown, Hl7 [facility] SARS-COV2/RT-PCR ([facility] & 2020-04-01 05:24:00 Forrest, [facility] - REF LABS) [facility] BASIC METABOLIC PANEL (7) 2020-04-01 05:08:00 Forrest, [facility] I [facility] MAGNESIUM 2020-04-01 05:08:00 Forrest, [facility] CREATINE KINASE (CK) 2020-04-01 05:08:00 Forrest, [facility] PHOSPHORUS 2020-04-01 05:08:00 Forrest, [facility] PT/APTT 2020-04-01 05:08:00 [facility], [facility] TROPONIN I 2020-04-01 05:08:00 Chantell Larson [facility] CBC W/PLT COUNT & AUTO 2020-04-01 05:08:00 [facility], [facility] URINALYSIS W/ REFLEX URINE 2020-04-01 05:04:00 [facility], [facility] XR CHEST 1 VIEW 2020-04-01 04:58:00 Forrest, [facility] PORTABLE/BEDSIDE Medical Center CRITICAL CARE 2020-04-01 04:51:54 Forrest, [facility] ED ECG INTERPRETATION 2020-04-01 04:51:54 [facility], [facility] Encounters Start End Encounter Admission Attending Care Care Encounter Source Date/Time Date/Time Type Type Clinicians Facility Department ID 2020-08-20 2020-08-[address] [facility] [id number] [facility] 00:00:00 00:00:00 Aqu[facility] Clinics 2020-08-16 2020-08-16 [facility] [id number] [facility] Outpat[facility] Clinics 2020-08-07 2020-08-07 [facility] [id number] [facility] 2020-07-09 2020-07-09 [facility] [id number] [facility] 2020-06-13 2020-06-13 [facility] [id number] 11:00:00 11:00:00 [facility] Medicine Outpati ent Clinics 2020-05-24 2020-05-24 Outpatient AWILDA VERNON, [facility] [id number] MD 00:00:00 00:00:00 NEDA melendez 2020-05-23 2020-05-23 Outpatient AWILDA VERNON, MDA MDA [id number] MD 00:00:00 00:00:00 NEDA melendez 2020-05-13 2020-05-13 Outpatient AWILDA SULLIVAN, [facility] MDA [id number] 00:00:00 00:00:00 FAUSTINO melendez 2020-05-07 2020-05-07 Outpatient AWILDA VERNON, [facility] MDA [id number] 00:00:00 00:00:00 NEDA melendez 2020-05-07 2020-05-07 Outpatient AWILDA VERNON, [facility] MDA [id number] 00:00:00 00:00:00 NEDA melendez 2020-04-30 2020-04-30 Outpatient AWILDA POLANCO, MDA MDA [id number] 09:15:00 23:59:00 LAMBERTO melendez 2019-10-18 2019-10-18 [facility] [id number] [facility] 08:20:00 08:20:00 [facility] Medicine Outpati ent Clinics 2019-10-10 2019-10-10 [facility] [id number] 16:00:00 16:00:00 [facility] Medicine Outpati ent Clinics Results Test Description Test Time Test Comments Results Result Comments Source POC-Glucose meter 2020-04-15 22:17:00 Test Item Value Reference Range Interpretation Comme nts POC-Glucose Meter (test code = 124 mg/dL 70-110 H : TESTED AT [facility] [address] [facility] 1538) [facility], 770 30: Web Portal Developer/Techni janel ID = [id number] for RAY ERVIN Lab Interpretation (test code = Abnormal 88096-0) [facility] [place] [facility] [id number] 22:17:00 Test Item Value Reference Range Interpretation Comments POC-GLUCOSE METER 124 mg/dL 70-110 H : TESTED A T [facility] 6720 ([facility]) (test code = [facility], 153) [address]32: Web Portal Developer/Techni janel ID = [id number] for RAY MCCLELLAN POCT-GLUCOSE [id number] 12:55:00 Test Item Value Reference Range Interpretation Comments POC-GLUCOSE METER 189 mg/dL 70-110 H : TESTED A T [facility] 67[facility] ([facility]) (test code = [facility], [facility]) 90590: Web Portal Developer/Techni janel ID = [id number] for LUCAS LOWE POCT-GLUCOSE [id number] 08:26:00 Test Item Value Reference Range Interpretation Comments POC-GLUCOSE METER 123 mg/dL 70-110 H : TESTED A T [facility] 67[facility] ([facility]) (test code = [facility], [facility]) 37251: Web Portal Developer/Techni janel ID = [id number] for LUPE CINDYTALIB JOE POCT-GLUCOSE [id number] 21:31:00 Test Item Value Reference Range Interpretation Comments POC-GLUCOSE METER 176 mg/dL 70-110 H : Notified RN/MD: ([facility]) (test code = TESTED AT [facility] 67[facility] 1538) [facility], [address]: Web Portal Developer/Techni janel ID = [id number] for ZAYDA LANDON ICE [place] [id number] 11:45:00 Test Item Value Reference Range Interpretation Comments [place] Level (test code = 0.6 mmol/L 0.8-1.2 L 01025-1) Lab Interpretation (test code = Abnormal 18715-2) [facility] [place] [facility]ITH[facility]UM [id number] 11:45:00 Test Item Value Reference Range Interpretation Comments LITHIUM LEVEL (BEAKER) (test code 0.6 mmol/L 0.8-1.2 L = 630) POCT-GLUCOSE [id number] 17:15:00 Test Item Value Reference Range Interpretation Comments POC-GLUCOSE METER 128 mg/dL 70-110 H : TESTED A T [facility] 6720 (BEAKER) (test code = [facility], 153) 75607: Web Portal Developer/Techni janel ID = [id number] for HI KIRIT, AGLAE POCT-GLUCOSE [id number] 12:20:00 Test Item Value Reference Range Interpretation Comments POC-GLUCOSE METER 108 mg/dL 70-110 : TESTED A T [facility] 6720 (BEAKER) (test code = [facility], 153) 724[address]: Web Portal Developer/Techni janel ID = [id number] for Sm ith, Elaina POCT-GLUCOSE [id number] 08:34:00 Test Item Value Reference Range Interpretation Comments POC-GLUCOSE METER 115 mg/dL 70-110 H : TESTED A T [facility] 6720 (BEAKER) (test code = [facility], 1538) 23201: Web Portal Developer/Techni janel ID = [id number] for Sm ith, Elaina POCT-GLUCOSE [id number] 20:59:00 Test Item Value Reference Range Interpretation Comments POC-GLUCOSE METER 152 mg/dL 70-110 H : TESTED A T [facility] 6720 (BEAKER) (test code = [facility], 153) 45843: Web Portal Developer/Techni janel ID = [id number] for BA FREDWIN, EMBER POCT-GLUCOSE [id number] 17:29:00 Test Item Value Reference Range Interpretation Comments POC-GLUCOSE METER 103 mg/dL 70-110 : TESTED A T [facility] 6720 (BEAKER) (test code [facility], = 1538) [address]: Web Portal Developer/Techni janel ID = [id number] for TSEG GAI, TSIGHEREDA POCT-GLUCOSE [id number] 12:22:00 Test Item Value Reference Range Interpretation Comments POC-GLUCOSE METER 204 mg/dL 70-110 H : Notified RN/MD: [facility] (test code AT [facility] [address] [facility] = 1538) [facility], 770 30: Web Portal Developer/Techni janel ID = [id number] for TSEG GAI, TSIGHEREDA POCT-GLUCOSE [id number] 08:43:00 Test Item Value Reference Range Interpretation Comments POC-GLUCOSE METER 132 mg/dL 70-110 H : TESTED A T [facility] 6720 (BEAKER) (test code [facility], = 1538) [address]29: Web Portal Developer/Techni janel ID = [id number] for TSEG GAI, TSIGHEREDA POCT-GLUCOSE [id number] 07:13:00 Test Item Value Reference Range Interpretation Comments POC-GLUCOSE METER 200 mg/dL 70-110 H : TESTED A T [facility] 6720 ([facility]) (test code = [facility], 1538) [address]: Web Portal Developer/Techni janel ID = [id number] for OC FELICIA, KULDIP POCT-GLUCOSE [id number] 16:54:00 Test Item Value Reference Range Interpretation Comments POC-GLUCOSE METER 103 mg/dL 70-110 : TESTED A T [facility] 6720 ([facility]) (test code = [facility], 1538) 14399: Web Portal Developer/Techni janel ID = [id number] for HU NT, KATIE POCT-GLUCOSE [id number] 11:03:00 Test Item Value Reference Range Interpretation Comments POC-GLUCOSE METER 155 mg/dL 70-110 H : TESTED A T [facility] 6720 ([facility]) (test code = [facility], 1538) [address]93: Web Portal Developer/Techni janel ID = [id number] for HU NT, KATIE POCT-GLUCOSE [id number] 07:06:00 Test Item Value Reference Range Interpretation Comments POC-GLUCOSE METER 129 mg/dL 70-110 H : TESTED A T [facility] 6720 (BEAKER) (test code = [facility], 1538) 99701: Web Portal Developer/Techni janel ID = [id number] for HU NT, KATIE POCT-GLUCOSE [id number] 20:59:00 Test Item Value Reference Range Interpretation Comments POC-GLUCOSE METER 167 mg/dL 70-110 H : TESTED A T [facility] 6720 (BEAKER) (test code = [facility], 1538) 17529: Web Portal Developer/Techni jnael ID = [id number] for KLEVER ALMONTE POCT-GLUCOSE [id number] 17:53:00 Test Item Value Reference Range Interpretation Comments POC-GLUCOSE METER 185 mg/dL 70-110 H : TESTED A T [facility] 6720 (BEAKER) (test code = [facility], 1538) 18679: Web Portal Developer/Techni janel ID = [id number] for Ingris Barcenasyia POCT-GLUCOSE [id number] 11:18:00 Test Item Value Reference Range Interpretation Comments POC-GLUCOSE METER 145 mg/dL 70-110 H : TESTED A T [facility] 6720 (BEAKER) (test code = [facility], 1538) 89298: Web Portal Developer/Techni janel ID = [id number] for Ingris Barcenasyia POCT-GLUCOSE [id number] 07:23:00 Test Item Value Reference Range Interpretation Comments POC-GLUCOSE METER 105 mg/dL 70-110 : TESTED A T [facility] 6720 (BEAKER) (test code = [facility], 1538) 84361: Web Portal Developer/Techni janel ID = [id number] for Audi ashley, Remyia Basic Metabolic [id number] 04:32:00 Test Item Value Reference Range Interpretation Comments Sodium (test code = 143 meq/L 659-817 6425-2) Potassium (test code = 4.0 meq/L 3.5-5.1 2823-3) Chloride (test code = 111 meq/L 98-107 H 2075-0) CO2 (test code = 25 meq/L 22-29 8-9) BUN (test code = 11 mg/dL 7-21 3094-0) Creatinine (test code 0.76 mg/dL 0.57-1.25 = 2160-0) Glucose (test code = 106 mg/dL 70-105 H 2345-7) Calcium (test code = 9.6 mg/dL 8.4-10.2 65805-6) EGFR (test code = 79 mL/min/1.73 [place] [address]-7) NOT ACCURATE CREATININE CLEARANCE IN PREDICTING GLOMERULAR FILTRATION RATE . ESTIMATED GFR I S NOT APPLICABLE FOR DIALYSIS PATIENTS. VIKKI (test code = VIKKI) Web Portal Developer ID - ZAHRA M Lab Interpretation Abnormal (test code = 19321-2) [facility] METABOLIC [id number] 04:32:00 Test Item Value Reference Range Interpretation Comments SODIUM (BEAKER) 143 meq/L 136-145 (test code = 381) POTASSIUM (BEAKER) 4.0 meq/L 3.5-5.1 (test code = 379) CHLORIDE (BEAKER) 111 meq/L 98-107 H (test code = 382) CO2 (BEAKER) (test 25 meq/L 22-29 code = 355) BLOOD UREA NITROGEN 11 [...] S NOT APPLICABLE FOR DIALYSIS PATIEN TS. Web Portal Developer ID - ZAHRA MCBC with platelet count + automated [id number] 04:10:00 Test Item Value Reference Range Interpretation [...] K/CU MM L MPV (test code = 06845-9) 12.3 fL 9.4-12.3 nRBC (test code = [...] 2801) Lab Interpretation (test code = Abnormal 82393-2) [facility] W/PLT COUNT & AUTO [id number] 04:10:00 Test Item Value Reference Range Interpretation [...] PERCENT (BEAKER) (test code = 2801) POCT-GLUCOSE [id number] 21:41:00 Test Item Value Reference Range Interpretation Comments POC-GLUCOSE METER 130 mg/dL 70-110 H : TESTED A T [facility] 6720 (BEAKER) (test code = [facility] [employer] [facility], 1538) [address]990: Web Portal Developer/Techni janel ID = [id number] for SA NIKAUYEN KELLOGG POCT-GLUCOSE [id number] 17:17:00 Test Item Value Reference Range Interpretation Comments POC-GLUCOSE METER 107 mg/dL 70-110 : TESTED A T [facility] 6720 (BEAKER) (test code = [facility] [employer] [facility], 1538) [address]: Web Portal Developer/Techni janel ID = [id number] for CA JONAH SAAVEDRA LITHIUM [id number] 13:12:00 Test Item Value Reference Range Interpretation Comments LITHIUM LEVEL (BEAKER) (test code 0.5 mmol/L 0.8-1.2 L = 630) POCT-GLUCOSE [id number] 07:24:00 Test Item Value Reference Range Interpretation Comments POC-GLUCOSE METER 124 mg/dL 70-110 H : TESTED A T [facility] 6720 (BEAKER) (test code = [facility], 1538) 02773: Web Portal Developer/Techni janel ID = [id number] for CA JONAH SAAVEDRA POCT-GLUCOSE [id number] 21:34:00 Test Item Value Reference Range Interpretation Comments POC-GLUCOSE METER 174 mg/dL 70-110 H : TESTED A T [facility] 6720 (BEAKER) (test code = [facility], 1538) 76742: Web Portal Developer/Techni janel ID = [id number] for DE NNIS, BING POCT-GLUCOSE [id number] 18:20:00 Test Item Value Reference Range Interpretation Comments POC-GLUCOSE METER 125 mg/dL 70-110 H : TESTED A T [facility] 6720 (BEAKER) (test code = [facility], 1538) 77334: Web Portal Developer/Techni janel ID = [id number] for HI LUCAS BETH POCT-GLUCOSE [id number] 12:47:00 Test Item Value Reference Range Interpretation Comments POC-GLUCOSE METER 100 mg/dL 70-110 : TESTED A T [facility] 6720 (BEAKER) (test code = [facility], 1538) 33237: Web Portal Developer/Techni janel ID = [id number] for SHELL LOWEE Comprehensive metabolic [id number] 04:30:00 Test Item Value Reference Range Interpretation Comments Protein, Total (test 7.5 6.0- 8.3 gm/dL code = 2885-2) Albumin (test code = 3.7 g/dL 3.5-5 19448-2) Alkaline Phosphatase 94 U/L 40-150 (test code = 6768-6) Total Bilirubin (test 0.9 mg/dL 0.2-1.2 code = 1975-2) Sodium (test code = 141 meq/L 856-738 7343-2) Potassium (test code = 4.0 meq/L 3.5-5.1 2823-3) Chloride (test code = 110 meq/L 98-107 H 5-0) CO2 (test code = 23 meq/L 22-29 8-9) BUN (test code = 10 mg/dL 7-21 3094-0) Creatinine (test code 0.72 mg/dL 0.57-1.25 = 2160-0) Glucose (test code = 123 mg/dL 70-105 H 2345-7) Calcium (test code = 9.6 mg/dL 8.4-10.2 27154-3) AST (test code = 28 U/L 5-34 1920-8) ALT (test code = 39 U/L 6-55 1742-6) EGFR (test code = 84 mL/min/1.[place] [address]-9) NOT ACCURATE CREATININE CLEARANCE IN PREDICTING GLOMERULAR FILTRATION RATE . ESTIMATED GFR I S NOT APPLICABLE FOR DIALYSIS PATIENTS. VIKKI (test code = VIKKI) Web Portal Developer ID - PIAYA L Lab Interpretation Abnormal (test code = 86887-0) [facility] MET[facility] [id number] 04:30:00 Test Item Value Reference Range Interpretation [...] S NOT APPLICABLE FOR DIALYSIS PATIEN TS. Web Portal Developer ID - PIAYA LCBC W/PLT COUNT & AUTO [id number] 03:57:00 Test Item Value Reference Range Interpretation [...] PERCENT (BEAKER) (test code = 2801) POCT-GLUCOSE [id number] 21:19:00 Test Item Value Reference Range Interpretation Comments POC-GLUCOSE METER 111 mg/dL 70-110 H : TESTED A T [facility] 6720 (BEAKER) (test code = [facility], 153) [address]: Web Portal Developer/Techni janel ID = [id number] for Neda Pineda POCT-GLUCOSE [id number] 17:31:00 Test Item Value Reference Range Interpretation Comments POC-GLUCOSE METER 106 mg/dL 70-110 : TESTED A T [facility] 6720 (BEAKER) (test code = [facility] [employer] [facility], 1538) 89250: Web Portal Developer/Techni janel ID = [id number] for Audi ashley, Ingrisyia Blood [id number] 14:00:00 Test Item Value Reference Range Interpretation Comments Result (test code = No growth in 5 days 6463-4) [facility] [id number] 14:00:00 Test Item Value Reference Range Interpretation Comments CULTURE (BEAKER) (test No growth in 5 days code = 1095) POCT-GLUCOSE [id number] 12:14:00 Test Item Value Reference Range Interpretation Comments POC-GLUCOSE METER 113 mg/dL 70-110 H : TESTED A T [facility] 6720 (BEAKER) (test code = [facility] [employer] [facility], 1538) 19695: Web Portal Developer/Techni janel ID = [id number] for Audi thenathaniel, Ingrisyia POCT-GLUCOSE [id number] 08:06:00 Test Item Value Reference Range Interpretation Comments POC-GLUCOSE METER 133 mg/dL 70-110 H : TESTED A T [facility] 6720 (BEAKER) (test code = [facility], 1538) 12042: Web Portal Developer/Techni janel ID = [id number] for Caleb Barcenas COMPREHENSIVE METABOLIC [id number] 05:57:00 Test Item Value Reference Range Interpretation [...] S NOT APPLICABLE FOR DIALYSIS PATIEN TS. Web Portal Developer ID - PIAYA LCBC W/PLT COUNT & AUTO [id number] 05:15:00 Test Item Value Reference Range Interpretation [...] PERCENT (BEAKER) (test code = 2801) POCT-GLUCOSE [id number] 21:12:00 Test Item Value Reference Range Interpretation Comments POC-GLUCOSE METER 197 mg/dL 70-110 H : TESTED A T [facility] 6720 (BEAKER) (test code = [place], 1538) 1977[address]: Web Portal Developer/Techni janel ID = [id number] for SUMMER OSWALD BLOOD [id number] 20:00:00 Test Item Value Reference Range Interpretation Comments CULTURE (BEAKER) (test No growth in 5 days code = 1095) Respiratory Panel [id number] 19:01:00 Test Item Value Reference Range Interpretation Comments Human Metapneumovirus Not detected Not detected, (test code = 96027-7) Equivocal Rhinovirus (test code = Not detected Not detected, 72319-7) Equivocal INFLUENZA A (NO Not detected Not detected, SUBTYPE) (test code = Equivocal 37027-1) Influenza A subtype H1 (test code = 34151-0) Influenza A Subtype H3 (test code = 82249-6) Influenza A Subtype H1-2009 (test code = 22720-3) Influenza B (test code Not detected Not detected, = 16872-7) Equivocal Respiratory Syncytial Not detected Not detected, Virus (test code = Equivocal 41266-8) Parainfluenza Virus 1 Not detected Not detected, (test code = 51569-3) Equivocal Parainfluenza Virus 2 Not detected Not detected, (test code = 95422-7) Equivocal Parainfluenza virus 3 Not detected Not detected, (test code = 43759-4) Equivocal Parainfluenza Virus 4 Not detected Not detected, (test code = 25135-3) Equivocal Adenovirus (test code = Not detected Not detected, 58655-6) Equivocal Coronavirus 229E (test Not detected Not detected, code = 56317-2) Equivocal Coronavirus HKU1 (test Not detected Not detected, code = 12791-9) Equivocal Coronavirus NL63 (test Not detected Not detected, code = 23301-8) Equivocal Coronavirus OC43 (test Not detected Not detected, code = 20131-3) Equivocal Bordetella Pertussis Not detected Not detected, (test code = 55381-7) Equivocal Chlamydophila Not detected Not detected, Pneumoniae (test code = Equivocal 52682-4) Mycoplasma Pneumoniae Not detected Not detected, (test code = 90053-2) Equivocal VIKKI (test code = VIKKI) Other viruses and bacteria not targeted by this PCR panel cannot be excluded; therefore clinical correlation and follow up of serology, culture results, and other molecular studies is required. The results are not intended to be used as the sole means for clinical diagnosis or patient management decisions. This sample was tested at the [facility] Molecular Diagnostics Laboratory using the Touch PaymentsArray Respiratory Panel. It is FDA cleared and has been verified and approved by the [facility] for clinical use on nasopharyngeal swab specimens. The performance of the FilmArray RP has not been established in individuals who received influenza vaccine. Recent administration of a nasal influenza vaccine may cause false positive results for Influenza A and/orInfluenza B. [facility] [id number] 19:01:00 Test Item Value Reference Range Interpretation [...] decisions. This sample was tested at the [facility] Molecular Diagnostics Laboratory using the Evento FilmArray Respiratory Panel. It is FDA cleared and has been verified and approved by the [facility] Molecular Diagnostics Laboratory for clinical [...] MDReport Verified Date/Time: 04/06/2020 16:45:26 Reading Location: [address] CT chest for pulmonary embolus [...] MDReport Verified Date/Time: 04/06/2020 16:45:26 Reading Location: [address] Transitional [id number]:25[facility]00 Test Item Value Reference Range Interpretation Comments PTT (test code = 31.0 22.5- 36.0 seconds 11597-5) VIKKI (test code = VIKKI) 6 hours after starting heparin infusion and as indicated per sliding scale Lab Interpretation (test Normal code = 99172-8) [facility] 14:25:00 Test Item Value Reference Range Interpretation Comments PARTIAL THROMBOPLASTIN TIME 31.0 seconds 22.5-36.0 (BEAKER) (test code = 760) 6 hours after starting heparin infusion and as indicated per sliding scalePOCT- GLUCOSE [id number] 12:08:00 Test Item Value Reference Range Interpretation Comments POC-GLUCOSE METER 135 mg/dL 70-110 H : TESTED A T [facility] 6720 (BEAKER) (test code = [place], 1538) [address]: Web Portal Developer/Techni janel ID = [id number] for PO JEREMY DIAZ ECG 12 [id number] 11:22:15Interface, External Ris In - 04/06/2020 11:22 AM CDTVentricular Rate 119 BPMAtrial Rate 119 BPMP-R Interval 128 msQRS Duration 84 msQ-T Interval 308 msQTC Calculation(Humberto) 433 msP [place] 68 degreesR [place] 64 degreesT [place] 55 degreesSinus tachycardiaOtherwise normal ECGConfirmed by MD MCCABE MAJID ([id number]) on 04/06/2020 11:22:13 [facility] [id number] 07:52:00 Test Item Value Reference Range Interpretation Comments POC-GLUCOSE METER 128 mg/dL 70-110 H : TESTED A T [facility] 6720 (BEAKER) (test code = [place], 1538) 0000[address]: Web Portal Developer/Techni janel ID = [id number] for PO JEREMY DIAZ COMPREHENSIVE METABOLIC [id number] 04:36:00 Test Item Value Reference Range Interpretation [...] S NOT APPLICABLE FOR DIALYSIS PATIEN TS. Web Portal Developer ID - PIAYA [id number] 04:10:00 Test Item Value Reference Range Interpretation Comments PARTIAL THROMBOPLASTIN TIME 29.3 seconds 22.5-36.0 (BEAKER) (test code = 760) Prior to initiating heparinCBC W/PLT COUNT & AUTO [id number] 04:02:00 Test Item Value Reference Range Interpretation [...] = 2801) Urinalysis w/Microscopic + Reflex to [id number] 00:18:00 Test Item Value Reference Range Interpretation Comments Color, UA (test code = Yellow 5778-6) Clarity, UA (test code = Clear 5767-9) Specific [place], UA 1.015 1.001-1.035 (test code = 5811-5) pH, UA (test code = 7.0 5.0-8.0 5803-2) Protein, UA (test code = Negative Negative 33460-4) Glucose, UA (test code = Negative Negative 365) Ketones, UA (test code = Negative Negative 2514-8) Bilirubin, UA (test code Negative Negative = 56717-0) Blood, UA (test code = Negative Negative 07632-2) Nitrite, UA (test code = Negative Negative 5802-4) Leukocytes, UA (test code Moderate Negative A = 5799-2) Urobilinogen, UA (test 6.0 mg/dL 0.2-1 H code = 42404-3) RBC, UA (test code = <1 /HPF 73754-3) WBC, UA (test code = 14 /HPF 5821-4) Bacteria, UA (test code = Occasional 13046-2) Squam Epithel, UA (test 5 /HPF code = 73680-0) Specimen Source (test code = 2795) VIKKI (test code = VIKKI) Web Portal Developer ID - [auto]Web Portal Developer ID - ann Lab Interpretation (test Abnormal code = 25694-1) [facility]FLEX URINE [id number] 00:18:00 Test Item Value Reference Range Interpretation [...] = 516) SOURCE(BEAKER) (test code = 2795) Web Portal Developer ID - [auto]Web Portal Developer ID - hankPOCT-GLUCOSE [id number] 23:31:00 Test Item Value Reference Range Interpretation Comments POC-GLUCOSE METER 137 mg/dL 70-110 H : TESTED A T [facility] 6720 (BEAKER) (test code = [place], 1538) [address]: Web Portal Developer/Techni janel ID = [id number] for CH UA, HENRISON [id number] 19:18:00 Test Item Value Reference Range Interpretation Comments Magnesium (test code = 1.6 mg/dL 1.6-2.6 92136-2) VIKKI (test code = VIKKI) Web Portal Developer ID - DB Lab Interpretation (test Normal code = 29054-5) [facility] 19:18[facility]00 Test Item Value Reference Range Interpretation Comments Phosphorus (test code = 2.9 mg/dL 2.3-4.7 2777-1) VIKKI (test code = VIKKI) Web Portal Developer ID - DB Lab Interpretation (test Normal code = 55095-0) [facility]OS[facility]ORUS2020-05-29 19:18:00 Test Item Value Reference Range Interpretation Comments PHOSPHORUS (BEAKER) (test code = 2.9 mg/dL 2.3-4.7 604) Web Portal Developer ID - [id number] 19:18:00 Test Item Value Reference Range Interpretation Comments MAGNESIUM (BEAKER) (test code = 1.6 mg/dL 1.6-2.6 627) Web Portal Developer ID - DBBASIC METABOLIC [id number] 19:18:00 Test Item Value Reference Range Interpretation [...] S NOT APPLICABLE FOR DIALYSIS PATIEN TS. Web Portal Developer ID - GIC-ymlao2684-74-29 19:09:00 Test Item Value Reference Range Interpretation Comments D-Dimer, Quant (test code 0.89 <0.50 MG/L FEU H = 32770-2) VIKKI (test code = VIKKI) Intended Use: [...] range. Lab Interpretation (test Abnormal code = 88482-6) [facility]2020-04-05 19:09:00 Test Item Value Reference Range Interpretation Comments SARS-COV2/RT-PCR Not Detected Not Detected, (test code = Negative 54790-4) SARS-COV-2 [facility] PERFORMING LAB (test code = 66496-7) VIKKI (test code = Negative results do [...] of the Act. Fact Sheet for Healthcare Providers:https://www.[employer]/Documents/Xper t%20Xpress%20SARS%20CoV- 2/Fact%20Sheets/302-7442 %81EKHB-ESE-5%20HEALTHCA RE%20PROVIDERS%20FACT%20 SHEET.pdf Fact Sheet for Healthcare Patients:https://www.cep heid.com/Documents/Xpert %20Xpress%20SARS%20CoV-2 /Fact%20Sheets/302-0231% 77KRTJ-WLZ-2%20PATIENT%2 0FACT%20SHEET.pdf Performing Laboratory:[facility] [place] [address] [facility] [place] campusD-[id number] 19:09:00 Test Item Value Reference Range Interpretation [...] of thrombosis is within 95-100% range. SARS-COV2/RT-PCR ([facility])2020-04-05 19:09:00 Test Item Value Reference Range Interpretation Comments SARS-COV2/RT-PCR (test Not Detected Not Detected, Negative code = 7713199) SARS-COV-2 PERFORMING LAB [facility] (test code = 4840267) Negative results do not preclude SARS-CoV-2 infection [...] of the Act.Fact Sheet for Healthcare Pro viders:https://www.[employer]ku[employer]/Documents/Xpert%20Xpress%20SARS%20CoV-2/Fact%20Sh eets/302-3802%82UZLD-AWB-7%20HEALTHCARE%20PROVIDERS%20FACT%20SHEET.pdfFact Sheet for Healthcare Patients:https://www.In [employer]vo/Documents/Xpert%20Xpress%20SARS%20CoV-2/Fact%20Sheets/302-3801%20SARS-COV -2%20PATIENT%20FACT%20SHEET.pdfPerforming Laboratory:[facility] [place], [place] [address]TVD W/PLT COUNT & AUTO DIFFERENTIAL 2020-04-05 19:01:00 [...] = 2801) RAD, CHEST, 1 VIEW, NON [id number] 17:16:00Reason for exam:->sob, feverShould this be performed at the bedside?->YesFINAL REPORT TECHNIQUE: Frontal chest radiograph dated 04/05/2020. CLINICAL HISTORY: SOB, Fever COMPARISON STUDY: Chest radiograph dated 04/01/2020 IMPRESSION:Endotracheal and enteric tubes have been removed. Lungs are clear. No pleural effusion or pneumothorax. Cardiomediastinalsilhouette is normal in size. No pulmonary edema. No fracture. Signed: Douglas Haleeport V erified Date/Time: 04/05/2020 17:16:45 Reading Location: [address] Transitional Reading Room XR chest 1 view portable / [id number] 17:16:00 Interface, External Ris In - 04/05/2020 5:18 PM CDTFINAL REPORT TECHNIQUE: Frontal chest radiograph dated 04/05/2020. CLINICAL HISTORY: SOB, Fever COMPARISON STUDY: Chest radiograph dated 04/01/2020 IMPRESSION:Endotracheal and enteric tubes have been removed. Lungs are clear. No pleural effusion or pneumothorax. Cardiomediastinal silhouette is normal in size. No pulmonary edema. No fracture. Signed: Douglas Hale Verified Date/Time: 04/05/2020 17:16:45 Reading Location: [facility] C013T Transitional Reading Room [facility] [id number] 17:04:00 Test Item Value Reference Range Interpretation Comments POC-GLUCOSE METER 128 mg/dL 70-110 H : TESTED A T [facility] 6720 (BEAKER) (test code = [facility], 153) [address]: Web Portal Developer/Techni janel ID = [id number] for RO DGERS, JAMECA Lactic acid, [id number] 16:47:00 Test Item Value Reference Range Interpretation Comments Lactate, Venous (test code = 1.24 mmol/L 0.5-2.2 2871) VIKKI (test code = VIKKI) Web Portal Developer ID - DB Lab Interpretation (test Normal code = 25136-6) [facility] campusLACTIC ACID, [id number] 16:47:00 Test Item Value Reference Range Interpretation Comments LACTATE BLOOD VENOUS (2) (BEAKER) 1.24 mmol/L 0.50-2.20 (test code = 2872) Web Portal Developer ID - DBPOCT-GLUCOSE [id number] 11:33:00 Test Item Value Reference Range Interpretation Comments POC-GLUCOSE METER 92 mg/dL 70-110 : TESTED A T [facility] 6720 (BEAKER) (test code = [facility], 153) 99964: Web Portal Developer/Techni janel ID = [id number] for RODG ERS, JAMECA POCT-GLUCOSE [id number] 08:34:00 Test Item Value Reference Range Interpretation Comments POC-GLUCOSE METER 136 mg/dL 70-110 H : TESTED A T [facility] 6720 (BEAKER) (test code = [facility], 153) 53091: Web Portal Developer/Techni janel ID = [id number] for RO DGERS, JAMECA POCT-GLUCOSE [id number] 21:09:00 Test Item Value Reference Range Interpretation Comments POC-GLUCOSE METER 93 mg/dL 70-110 : TESTED A T [facility] 6720 (BEAKER) (test code = [place], 1538) 555[address]: Web Portal Developer/Techni janel ID = [id number] for BRITTNEY BAZAN POCT-GLUCOSE [id number] 18:02:00 Test Item Value Reference Range Interpretation Comments POC-GLUCOSE METER 84 mg/dL 70-110 : TESTED A T [facility] 6720 (BEAKER) (test code = [facility] [facility], 1538) [address]: Web Portal Developer/Techni janel ID = [id number] for DARYA SEWELL Hepatic function [id number] 16:01:00 Test Item Value Reference Range Interpretation Comments Protein, Total (test code = 7.4 6.0- 8.3 gm/dL 2885-2) Albumin (test code = 3.8 g/dL 3.5-5 57696-9) Total Bilirubin (test code 1.4 mg/dL 0.2-1.2 H = 1975-2) Bilirubin, Direct (test 0.7 mg/dL 0.1-0.5 H code = 1968-7) Alkaline Phosphatase (test 102 U/L 40-150 code = 6768-6) AST (test code = 1920-8) 67 U/L 5-34 H ALT (test code = 1742-6) 40 U/L 6-55 VIKKI (test code = VIKKI) Web Portal Developer ID - NTP Lab Interpretation (test Abnormal code = 59257-8) [facility] campusHEPATIC FUNCTION [id number] 16:01:00 Test Item Value Reference Range Interpretation [...] (test code = 40 U/L 6-55 347) Web Portal Developer ID - NTPCBC W/PLT COUNT & AUTO [id number] 15:40:00 Test Item Value Reference Range Interpretation [...] PERCENT (BEAKER) (test code = 2801) POCT-GLUCOSE [id number] 11:53:00 Test Item Value Reference Range Interpretation Comments POC-GLUCOSE METER 94 mg/dL 70-110 : TESTED A T [facility] 6720 (BEAKER) (test code = [facility] [place] [facility], 1538) 28347: Web Portal Developer/Techni janel ID = [id number] for BROW N, DARYA POCT-GLUCOSE [id number] 09:06:00 Test Item Value Reference Range Interpretation Comments POC-GLUCOSE METER 114 mg/dL 70-110 H : TESTED A T [facility] 6720 (BEAKER) (test code = [facility] Oni [facility], 1538) 67[address]: Web Portal Developer/Techni janel ID = [id number] for BR OWN, DARYA [id number] 06:19:00 Test Item Value Reference Range Interpretation Comments PHOSPHORUS (BEAKER) (test code = 3.8 mg/dL 2.3-4.7 604) Web Portal Developer ID - ZAHRA [id number] 06:19:00 Test Item Value Reference Range Interpretation Comments MAGNESIUM (BEAKER) (test code = 1.8 mg/dL 1.6-2.6 627) Web Portal Developer ID - ZAHRA MBASIC METABOLIC [id number] 06:19:00 Test Item Value Reference Range Interpretation [...] S NOT APPLICABLE FOR DIALYSIS PATIEN TS. Web Portal Developer ID - ZAHRA MCBC W/PLT COUNT & AUTO [id number] 05:56:00 Test Item Value Reference Range Interpretation [...] PERCENT (BEAKER) (test code = 2801) POCT-GLUCOSE [id number] 22:05:00 Test Item Value Reference Range Interpretation Comments POC-GLUCOSE METER 110 mg/dL 70-110 : TESTED A T [facility] 6720 (BEAKER) (test code = [facility], 1538) 08788: Web Portal Developer/Techni janel ID = [id number] for MN JOSE C PAIGE POCT-GLUCOSE [id number] 18:00:00 Test Item Value Reference Range Interpretation Comments POC-GLUCOSE METER 127 mg/dL 70-110 H : TESTED A T [facility] 6720 (BEAKER) (test code = [facility], 1538) [address]18[address]: Web Portal Developer/Techni janel ID = [id number] for Sm ith, Elaina POCT-GLUCOSE [id number] 11:47:00 Test Item Value Reference Range Interpretation Comments POC-GLUCOSE METER 100 mg/dL 70-110 : TESTED A T [facility] 6720 (BEAKER) (test code = [facility], 1538) 558[address]: Web Portal Developer/Techni janel ID = [id number] for Sm ith, Elaina Hemoglobin [id number] 10:02:00 Test Item Value Reference Range Interpretation Comments Hemoglobin A1C (test code = 4548-4) 6.0 % 4.3-6.1 Lab Interpretation (test code = Normal 19676-0) [facility]HEMOGLOBIN [id number] 10:02:00 Test Item Value Reference Range Interpretation Comments HEMOGLOBIN A1C (BEAKER) (test code = 6.0 % 4.3-6.1 368) POCT-GLUCOSE [id number] 07:38:00 Test Item Value Reference Range Interpretation Comments POC-GLUCOSE METER 115 mg/dL 70-110 H : TESTED A T [facility] 6720 (BEAKER) (test code = [place], 1538) [address]: Web Portal Developer/Techni janel ID = [id number] for Elaina Connelly U/S, ABDOMINAL, [id number] 06:20:00Abdomen limited area? Add comment if clarification [...] MDReport Verified Date/Time: 04/03/2020 06:20:42 US abdomen [id number] 06:20:00Interface, External Ris In - 04/03/2020 6:23 [...] Leighton Walker MDReport Verified Date/Time: 04/03/2020 06:20:42 [facility] 04:33:00 Test Item Value Reference Range Interpretation Comments PHOSPHORUS (BEAKER) (test code = 3.3 mg/dL 2.3-4.7 604) Web Portal Developer ID - PIAYA [id number] 04:33:00 Test Item Value Reference Range Interpretation Comments MAGNESIUM (BEAKER) (test code = 1.8 mg/dL 1.6-2.6 627) Web Portal Developer ID - PIAYA LBASIC METABOLIC [id number] 04:33:00 Test Item Value Reference Range Interpretation [...] S NOT APPLICABLE FOR DIALYSIS PATIEN TS. Web Portal Developer ID - PIAYA LHEPATIC FUNCTION [id number] 04:33:00 Test Item Value Reference Range Interpretation [...] (test code = 32 U/L 6-55 347) Web Portal Developer ID - PIAYA LCBC W/PLT COUNT & AUTO [id number] 04:08:00 Test Item Value Reference Range Interpretation [...] PERCENT (BEAKER) (test code = 2801) POCT-GLUCOSE [id number] 21:20:00 Test Item Value Reference Range Interpretation Comments POC-GLUCOSE METER 144 mg/dL 70-110 H : Notified RN/MD: (CHANG) (test code = TESTED AT [facility] 6720 1538) [facility], [address]: Web Portal Developer/Techni janel ID = [id number] for ZAYDA LANDON ICE MR, BRAIN, WITHOUT [id number] 20:37:00FINAL REPORT MR, BRAIN, WITHOUT CONTRAST INDICATION: [...] scalp: Unremarkable. IMPRESSION:No acute intracranial abnormality. Signed: Argenis Parvinbeverley Velasquez Verified Date/Time: 04/02/2020 20:37:03 MR brain without IV [id number] 20:37:00Interface, External Ris In - 04/02/2020 8:39 [...] Signed: Parvin More Verified Date/Time: 04/02/2020 20:37:03 [facility] [id number] 17:29:00 Test Item Value Reference Range Interpretation Comments POC-GLUCOSE METER 131 mg/dL 70-110 H : TESTED A T [facility] 6720 (BEAKER) (test code = [place], 1538) [address]: Web Portal Developer/Techni janel ID = [id number] for KATIE ZAMORA LITHIUM [id number] 16:31:00 Test Item Value Reference Range Interpretation Comments LITHIUM LEVEL (BEAKER) < mmol/L 0.8-1.2 L This test was performed (test code = 630) at:[facility] , [facility], [address], [place] [address] Rapid drug screen, [id number] 13:58:00 Test Item Value Reference Range Interpretation Comments Barbiturate Screen Negative Negative (test code = 00010-5) Benzodiazepine Screen Positive Negative A (test code = 75593-4) Cocaine (Metab.) Negative Negative Screen (test code = 3397-7) Methadone Screen (test Negative Negative code = 77415-1) Opiate Screen (test Negative Negative code = 73332-6) Cannabinoid Screen Negative Negative (test code = 36260-7) Amph/Methamph Screen Negative Negative (test code = 21255-2) Phencyclidine Screen Negative Negative (test code = 87959-9) pH, UA (test code = 6.5 5.0-8.0 5803-2) VIKKI (test code = VIKKI) DRUG CUTOFF CONC.Cocaine 300 ng/mL Cannabinoid 50 ng/mLBenzodiazepine 200 ng/mLBarbiturate 200 ng/mLPhencyclidine 25 ng/mLOpiate 300 ng/mLMethadone 300 ng/mLAmphetamine/ 1000 ng/mL Methamphetamine This assay provides an unconfirmed qualitative test result for the clinical management of patients in emergency situations. Chain of custody not maintained. Some ratu-pzl-yhfpbvn medications, as well as adulterants, may cause inaccurate results. Clinical correlation should be applied. A more comprehensive drug screen or confirmation of a detected drug may be performed upon request.Web Portal Developer ID - ADMIN Lab Interpretation Abnormal (test code = 11130-6) [facility]RAPID DRUG SCREEN, [id number] 13:58:00 Test Item Value Reference Range Interpretation [...] situations. Chain of custody not maintained. Some mxmt-rbd-uriijwr medications, as well as adulterants, may cause inaccurate results. Clinical correlation should be applied. A more comprehensivedrug screen or confirmation of a detected drug may be performed upon request.Web Portal Developer ID - ADMINEEG W VID 12-26 HR CONTINUOUS MONITORING (VEEG)2020-04-02 13:28:00Reason for exam:- >SEIZURES Should this be performed at the bedside?->YesDate of EE04/01/2020 to 04/02/2020 DATE OF REPORT: 04/02/2020 ACC: [id number] EEG Number: [id number] Start time: 04/01/2020 @ 14:41 PM Stop time: 04/02/2020 @ 11:30 AM ICD-10: R56.9 CPT Code: 66930 HISTORY: 54 y.o. Female with ADHD, bipolar [...] Attending EEG 12-26 HR Continuous Monitoring with [id number] 13:28:00 Interface, External Ris In - 04/02/2020 1:28 PM CDTDate of EE04/01/2020 to 04/02/2020 DATE OF REPORT: 04/02/2020 ACC: [id number] EEG Number: [id number] Start time: 04/01/2020 @ 14:41 PM Stop time: 04/02/2020 @ 11:30 AM ICD-10: R56.9 CPT Code: 55096 HISTORY: 54 y.o. Female with ADHD, bipolar [...] by: ELVIE MCKAY MD on 04/02/2020 01:28 [facility]Ammonia2020-05-26 12:55:00 Test Item Value Reference Range Interpretation Comments Ammonia (test code = 60 18- 72 mol/L 14655-5) VIKKI (test code = VIKKI) Web Portal Developer ID - ABILIO E Lab Interpretation (test Normal code = 79559-2) [facility]AMMONIA2020-05-26 12:55:00 Test Item Value Reference Range Interpretation Comments AMMONIA (BEAKER) (test code = 348) 60 mol/L 18-72 Web Portal Developer ID - ABILIO EPOCT-GLUCOSE [id number] 11:12:00 Test Item Value Reference Range Interpretation Comments POC-GLUCOSE METER 165 mg/dL 70-110 H : TESTED A T [facility] 6720 (BEAKER) (test code = [facility], 1538) [address]: Web Portal Developer/Techni janel ID = [id number] for AKTIE ZAMORA POCT-GLUCOSE [id number] 08:44:00 Test Item Value Reference Range Interpretation Comments POC-GLUCOSE METER 97 mg/dL 70-110 : TESTED A T [facility] 6720 (BEAKER) (test code = [facility], 1538) 04182: Web Portal Developer/Techni janel ID = [id number] for HARIS FUCHS BASIC METABOLIC [id number] 05:35:00 Test Item Value Reference Range Interpretation [...] S NOT APPLICABLE FOR DIALYSIS PATIEN TS. Web Portal Developer ID - LACBC W/PLT COUNT & AUTO [id number] 05:04:00 Test Item Value Reference Range Interpretation [...] PERCENT (BEAKER) (test code = 2801) POCT-GLUCOSE [id number] 02:05:00 Test Item Value Reference Range Interpretation Comments POC-GLUCOSE METER 116 mg/dL 70-110 H : TESTED A T [facility] 6720 (BEAKER) (test code = [facility], 1538) [address]: Web Portal Developer/Techni janel ID = [id number] for Neda Pineda T4, [id number] 20:56:00 Test Item Value Reference Range Interpretation Comments Free T4 (test code = 1.19 ng/dL 0.7-1.48 3024-7) VIKKI (test code = VIKKI) Web Portal Developer ID - NTP Lab Interpretation (test Normal code = 30884-7) [facility]T4, [id number] 20:56:00 Test Item Value Reference Range Interpretation Comments FREE T4 (ANNIEAKER) (test code = 655) 1.19 ng/dL 0.70-1.48 Web Portal Developer ID - NTPPOCT-GLUCOSE [id number] 20:54:00 Test Item Value Reference Range Interpretation Comments POC-GLUCOSE METER 99 mg/dL 70-110 : TESTED A T [facility] 6720 (BEAKER) (test code = [facility], 1538) 736[address]: Web Portal Developer/Techni janel ID = [id number] for DUNG DOWLING TSH/Free T4 If [id number] 20:18:00 Test Item Value Reference Range Interpretation Comments TSH (test code = 0.057 0.350- 4.940 uIU/mL L 85356-8) VIKKI (test code = VIKKI) Web Portal Developer ID - NTP Lab Interpretation (test Abnormal code = 88281-8) [facility] campusTSH/FREE T4 IF [id number] 20:18:00 Test Item Value Reference Range Interpretation Comments THYROID STIMULATING HORMONE 0.057 uIU/mL 0.350-4.940 L (AKER) (test code = 772) Web Portal Developer ID - NTPVitamin B12 and [id number] 20:07:00 Test Item Value Reference Range Interpretation Comments Vitamin B12 (test code = 929 pg/mL 213-816 H 2132-9) Folate (test code = 2284-8) 15.80 ng/mL >=7.00 VIKKI (test code = VIKKI) Web Portal Developer ID - NTP Lab Interpretation (test Abnormal code = 65125-9) [facility] campusVITAMIN B12 AND [id number] 20:07:00 Test Item Value Reference Range Interpretation Comments VITAMIN B12 (BEAKER) (test code = 929 pg/mL 213-816 H 774) FOLATE (BEAKER) (test code = 362) 15.80 ng/mL >=7.00 Web Portal Developer ID - NTPHEPATIC FUNCTION [id number] 19:32:00 Test Item Value Reference Range Interpretation [...] (test code = 31 U/L 6-55 347) Web Portal Developer ID - NTPPOCT-GLUCOSE [id number] 18:09:00 Test Item Value Reference Range Interpretation Comments POC-GLUCOSE METER 96 mg/dL 70-110 : TESTED A T [facility] 6720 (BEAKER) (test code = [facility], 1538) [address]87: Web Portal Developer/Techni janel ID = [id number] for SLY DUBOSE POCT-GLUCOSE [id number] 12:33:00 Test Item Value Reference Range Interpretation Comments POC-GLUCOSE METER 102 mg/dL 70-110 : TESTED A T [facility] 6720 (BEAKER) (test code = [facility], 1538) [address]: Web Portal Developer/Techni janel ID = [id number] for AK OBINNAUMACARIOLA Troponin [id number] 07:53:00 Test Item Value Reference Range Interpretation Comments Troponin I (test code = 0.01 ng/mL 0-0.03 58050-3) VIKKI (test code = VIKKI) Troponin I [...] NTP Lab Interpretation (test Normal code = 39107-2) [facility] [id number] 07:53:00 Test Item Value Reference Range Interpretation [...] failure, acidosis, acute neurological disease, and persistent tachyarrhythmia.Web Portal Developer ID - NTPSARS-COV2/RT-PCR ([facility])2020-04-01 06:29:00 Test Item Value Reference Range Interpretation Comments SARS-COV2/RT-PCR (test Not Detected Not Detected, Negative code = 9061796) SARS-COV-2 PERFORMING LAB [facility] (test code = 4022291) Negative results do not preclude SARS-CoV-2 infection [...] of the Act.Fact Sheet for Healthcare Pro viders:https://www.SkuServe/Documents/Xpert%20Xpress%20SARS%20CoV-2/Fact%20Sh eets/3023802%84UFDQ-WZT-6%20HEALTHCARE%20PROVIDERS%20FACT%20SHEET.pdfFact Sheet for Healthcare Patients:https://www.In Ovo/Documents/Xpert%20Xpress%20SARS%20CoV-2/Fact%20Sheets/3023801%20SARS-COV -2%20PATIENT%20FACT%20SHEET.pdfPerforming Laboratory:[address] [address]CKD W/PLT COUNT & AUTO DIFFERENTIAL 2020-04-01 05:56:00 [...] code = 2801) URINALYSIS W/ REFLEX URINE [id number] 05:55:00 Test Item Value Reference Range Interpretation [...] = 1584) SOURCE(BEAKER) (test code = 2795) Web Portal Developer ID - [auto]Web Portal Developer ID - techCreatine Kinase (CK)2020-04-01 05:42:00 Test Item Value Reference Range Interpretation Comments Total CK (test code = 79 U/L 29-200 2157-6) VIKKI (test code = VIKKI) Web Portal Developer ID - ZAHRA M Lab Interpretation (test Normal code = 60771-9) [facility]PHOSPHORUS2020-05-25 05:42:00 Test Item Value Reference Range Interpretation Comments PHOSPHORUS (BEAKER) (test code = 3.0 mg/dL 2.3-4.7 604) Web Portal Developer ID - ZAHRA [id number] 05:42:00 Test Item Value Reference Range Interpretation Comments MAGNESIUM (BEAKER) (test code = 2.1 mg/dL 1.6-2.6 627) Web Portal Developer ID - ZAHRA MBASIC METABOLIC [id number] 05:42:00 Test Item Value Reference Range Interpretation [...] S NOT APPLICABLE FOR DIALYSIS PATIEN TS. Web Portal Developer ID - ZAHRA MCREATINE KINASE (CK)2020-04-01 05:42:00 Test Item Value Reference Range Interpretation Comments CREATINE KINASE TOTAL (BEAKER) (test 79 U/L 29-200 code = 380) Web Portal Developer ID - ZAHRA MPT/[id number] 05:34:00 Test Item Value Reference Range Interpretation Comments Protime (test code = 15.4 11.9- 14.2 H 5902-2) seconds INR (test code = 1.3 <=5.9 6301-6) PTT (test code = 25.8 22.5- 36.0 26498-7) seconds VIKKI (test code = VIKKI) Effective 04/05/2019: PT Reference Range ChangeNew: 11.9-14.2 Previous: 11.7-14.7 RECOMMENDED COUMADIN/WARFARIN INR THERAPY RANGESSTANDARD DOSE: 2.0-3.0 Includes: PROPHYLAXIS for venous thrombosis, systemic embolization; TREATMENT for venous thrombosis and/or pulmonary embolus.HIGH RISK: Target INR is 2.5-3.5 for patients wiht mechanical heart valves. Lab Interpretation Abnormal (test code = 73257-9) [facility] campusPT/[id number] 05:34:00 Test Item Value Reference Range Interpretation [...] mechanical heart valves.RAD, CHEST, 1 VIEW, NON [id number] 05:12:00Reason for exam:->post intubationIs the patient ?->UnknownFINAL [...] Walker MDReport Verified Date/Time: 04/01/2020 05:12:05 CRITICAL [id number] 04:51:54Glendy Clayton MD 04/15/2020 3:33 PMCritical CarePerformed by: Glendy Clayton MDAuthorized by: Glendy Clayton MD Total critical care time: 30 minutesCritical care was necessary to treat or prevent imminent or life-threatening deterioration of the following conditions: respiratory failure and NETWORK DESIGNER failure or compromise.Critical care was time spent [...] of radiographic studies and re-evaluation of patient's condition.[facility] ECG/EKG Mgbwiptplvmefg1206-59-59 04:51:54Glendy Clayton MD 04/15/2020 3:33 PMECG/EKG InterpretationDate/Time: 04/15/2020 3:33 PMPerformed by: Glendy Clayton MDAuthorized by: Arturo Downs MD The ECG was interpreted by ED physician. The ECG is interpreted as sinus tachycardia. Rate is tachycardic. Heart rate is 111 BPM.ST segments normal. T waves normal. [place] is normal. Other findings include: prolonged QTc interval. Clinical Impression: non-specific ECGECG reviewed and does not meet STEMI criteria. Patient tolerance: Patient tolerated the procedure well with no immediate complicationsCHI [facility] POC Glucose, [id number] 05:26:00 Test Item Value Reference Range Interpretation Comments POC Glucose (test 136 mg/dL 70-115 H Notify RN or MDIf you code = POCGLUC) consider you r patient critically ill, the [place] Accu-Chek InformII metershould not be used for Glucose determinations. Draw a venous Glucose and send to the Main Lab for Analysis. [id number] 08:15:00 Test Item Value Reference Range Interpretation Comments [place] (test code = LI) 0.44 mmol/L 0.6-1.2 L POC Glucose, [id number] 05:37:00 Test Item Value Reference Range Interpretation Comments POC Glucose (test 134 mg/dL 70-115 H If you con tower hoist operator your code = POCGLUC) patient crit ically ill, the [place] Accu- Chek InformII meters hould not be used for Glu cose determinations. Draw a venous Glucose and send to the Main Lab for Analysis. POC Glucose, [id number] 07:28:00 Test Item Value Reference Range Interpretation Comments POC Glucose (test 128 mg/dL 70-115 H If you con tower hoist operator your code = POCGLUC) patient crit ically ill, the [place] Accu- Chek InformII meters hould not be used for Glu cose determinations. Draw a venous Glucose and send to the Main Lab for Analysis. POC Glucose, [id number] 20:18:00 Test Item Value Reference Range Interpretation Comments POC Glucose (test 121 mg/dL 70-115 H If you con tower hoist operator your code = POCGLUC) patient crit ically ill, the [place] Accu- Chek InformII meters hould not be used for Glu cose determinations. Draw a venous Glucose and send to the Main Lab for Analysis. BHCG, Serum, [id number] 22:36:00 Test Item Value Reference Range Interpretation Comments Preg Qual [Se] (test code = BSHCG) Negative Negative N POC Glucose, [id number] 15:14:00 Test Item Value Reference Range Interpretation Comments POC Glucose (test 117 mg/dL 70-115 H If you con tower hoist operator your code = POCGLUC) patient crit ically ill, the [place] Accu- Chek InformII meters hould not be used for Glu cose determinations. Draw a venous Glucose and send to the Main Lab for Analysis.
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
--- OUTSIDE RECORDS SUMMARY | 2020-09-03 22:48 | XMS REPORT ---
[...] End Status Dosage System Date Date Paxil [facility] 50563816852 40 MG Orally Active 1 table t in Once a day the morning Adderall [facility] 82225089565 20 MG Orally Active 1 tabl et Twice a day Risperdal [facility] 19874901541 2 MG Orally Active 1 tabl et Twice a day FreeStyle [facility] 34598146675 - subcutaneous Jun 13, Active as directed Roxy 14 Day Test BS three 2019 Sensor times daily + prn Metformin HCl [facility] 45248349370 500 MG Orally Jun 13, Active 1 tablet Twice a day 2019 with a meal FreeStyle [facility] 53585725285 - as directed Jun 13, Active as d irected Roxy [place] Check BS three 2019 times daily + prn [place] [facility] 49855652833 300 MG Orally Active (450 m g) 1 Carbonate Once a day capsule Levemir [facility] 20548530405 100 UNIT/ML Jun 13, Active as direc jassi FlexTouch Subcutaneous 20 2020 units once daily in am [place] [facility] 45187539043 32G X 5 MM Jun 13, Active as di rected subcutaneous use 2019 as directed with Levemir FlexTouch once daily Quetiapine [facility] 59647375035 300 MG Orally Active 1 t ablet at Fumarate Once a day bedtime Klonopin [facility] 16230866362 1 MG Orally TID Active 1 t ablet Results Name Result Date Reference Range Unit Abnormali ty Flag GLUCOSE FINGER ----Result 342 [id number] Summary Purpose eClinicalWorks Submission
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
[2020-09-03] MEDS ORDERED: IPRATROPIUM BROM 0.5MG/2.5ML ONE (23:39)
[2020-09-03] MEDS ORDERED: predniSONE 20 MG TAB ONE (23:39)
[2020-09-03] MEDS ORDERED: ALBUTEROL 2.5 MG/3 ML NEB SOL ONE (23:39)
[2020-09-04 00:17] LABS: Protime INR 1.1
[2020-09-04 00:18] LABS: Absolute Lymphocytes (CBC) 1.3 K/uL (0.7-4.9); Basophils % 0.5 % (0-1.3); Hematocrit 36.9 % (36.0-45.0); Lymphocytes % 19.7 % (15.3-44.8); MPV 9.6 fL (7.6-11.3); RBC Red Blood Cell Count 4.12 M/uL (3.86-4.86)
[2020-09-04 00:40] LABS: ALT/SGPT 28 U/L (12-78); AST/SGOT 15 U/L (15-37); Albumin 3.3 g/dL (3.4-5.0); Alkaline Phosphatase 103 U/L (45-117); BUN Blood Urea Nitrogen 12 mg/dL (7-18); Bicarbonate 31 mmol/L (21-32); Bilirubin Direct 0.2 mg/dL (0-0.2); Bilirubin Total 0.5 mg/dL (0.2-1.0); Glucose Level 134 mg/dL (74-106); Magnesium 1.9 mg/dL (1.8-2.4); NT PRO-BNP 103 pg/mL (<125); Potassium 3.8 mmol/L (3.5-5.1); Protein, Total 7.4 g/dL (6.4-8.2); Sodium Level 139 mmol/L (136-145); Troponin (Emerg Dept Use Only) < 0.02 ng/mL (0.0-0.045)
[2020-09-04 01:01] LABS: Blood Morphology Comment NOT SEEN (NOT SEEN); Platelet Estimate DECR; White Blood Cell Scan OK (OK)
--- NOTE | 2020-09-04 01:06 | EDPHYS ---
Physician Documentation [facility] Name: Wendi Norton Age: 55 yrs Sex: Female : 1965 Arrival Date: 09/03/2020 Time: 22:41 Bed 15 Private MD: ED Physician Juwan Dyer HPI: 09/03 23:20 This 55 yrs old Female presents to ER via Ambulatory with complaints of pm1 Breathing Difficulty. 23:20 The patient has shortness of breath at rest, with light activity. Onset: The pm1 symptoms/episode began/occurred 7 day(s) ago. Duration: The symptoms are chronic, are continuous. The patient's shortness of breath is aggravated by light activity, is alleviated by nothing. Associated signs and symptoms: Pertinent positives: non-productive cough, baseline smokers cough, Pertinent negatives: chest pain, fever, nausea, vomiting. Severity of symptoms: in the emergency department the symptoms are worse Pain is currently a 0 / 10. The patient has experienced similar episodes in the past, several times. Historical: - Allergies: 23:12 Motrin; rr5 - Home Meds: 23:12 Adderall XR Oral 1 cap once daily [Active]; clonazepam 2 mg Oral tab 1 tab daily rr5 [Active]; fluoxetine 20 mg Oral tab 1 tab once daily [Active]; lithium carbonate 300 mg Oral cpER 1 tab nightly [Active]; quetiapine 300 mg Oral tab 1 tab nightly [Active]; Tylenol #3 Oral [Active]; Vicodin 5-300 mg Oral tab 1 tab daily [Active]; - PMHx: 23:12 ADD/ADHD; Asthma; Bipolar disorder; breast cancer- in remission; COPD; Depression; rr5 Diabetes - NIDDM; Diverticulitis; Hepatitis; PTSD; Pain Management; - PSHx: 23:12 ; arm surgery; leg surgery; rr5 - Immunization history:: Adult Immunizations up to date. - Social history:: Smoking status: Patient reports the use of cigarette tobacco products, smokes one-half pack cigarettes per day, Patient/guardian denies using alcohol, street drugs. ROS: 23:20 Constitutional: Negative for fever, chills, and weight loss, Cardiovascular: Negative pm1 for chest pain, palpitations, and edema. 23:20 Abdomen/GI: Negative for abdominal pain, nausea, vomiting, diarrhea, and constipation, Back: Negative for injury and pain, MS/Extremity: Negative for injury and deformity, Skin: Negative for injury, rash, and discoloration, Neuro: Negative for headache, weakness, numbness, tingling, and seizure. 23:20 Respiratory: Positive for cough, shortness of breath, on exertion. Exam: 23:20 Constitutional: This is a well developed, well nourished patient who is awake, alert, pm1 and in no acute distress. Head/Face: Normocephalic, atraumatic. 23:20 Abdomen/GI: Soft, non-tender, with normal bowel sounds. No distension or tympany. No guarding or rebound. No evidence of tenderness throughout. Back: No spinal tenderness. No costovertebral tenderness. Full range of motion. Skin: Warm, dry with normal turgor. Normal color with no rashes, no lesions, and no evidence of cellulitis. MS/ Extremity: Pulses equal, no cyanosis. Neurovascular intact. Full, normal range of motion. 23:20 Cardiovascular: Exam negative for acute changes, Rate: normal, Rhythm: regular, Pulses: no pulse deficits are appreciated. 23:20 Respiratory: the patient does not display signs of respiratory distress, Respirations: normal, Breath sounds: rhonchi, that are mild. 23:20 Neuro: Exam negative for acute changes, Orientation: is normal, Motor: is normal, moves all fours. Vital Signs: 23:00 Weight 95.25 kg; Height 5 ft. 2 in. (157.48 cm); rr5 23:04 BP 97 / 61; Pulse 92; Resp 24; Temp 98.7; Pulse Ox 94% on 2 lpm NC; dh4 09/04 00:00 BP 95 / 62; Pulse 95; Resp 19; Pulse Ox 98% on 2 lpm NC; rr5 00:55 BP 100 / 52; Pulse 100; Resp 21; Pulse Ox 98% on 2 lpm NC; rr5 01:18 BP 110 / 62; Pulse 92; Resp 20; Pulse Ox 99% on R/A; rr5 09/03 23:00 Body Mass Index 38.41 (95.25 kg, 157.48 cm) rr5 MDM: 09/03 23:05 Patient medically screened. pm1 09/04 01:03 Data reviewed: vital signs. Data interpreted: Pulse oximetry: on room air is 98 %. pm1 Interpretation: normal. Counseling: I had a detailed discussion with the patient and/or guardian regarding: the historical points, exam findings, and any diagnostic results supporting the discharge/admit diagnosis, lab results, radiology results, the need for outpatient follow up, to return to the emergency department if symptoms worsen or persist or if there are any questions or concerns that arise at home. 01:03 ED course: Patient "felt great" after the breathing treatment and said she was finally pm1 able to sleep. She feels ready to go home. 09/03 23:10 Order name: Basic Metabolic Panel pm1 09/03 23:10 Order name: CBC with Diff pm1 09/03 23:10 Order name: LFT's pm1 09/03 23:10 Order name: Magnesium; Complete Time: 00:49 pm1 09/03 23:10 Order name: NT PRO-BNP; Complete Time: 00:49 pm1 09/03 23:10 Order name: PT-INR; Complete Time: 00:20 pm1 09/03 23:10 Order name: Troponin (emerg Dept Use Only); Complete Time: 00:49 pm1 09/03 23:10 Order name: XRAY Chest (1 view) pm1 09/03 23:11 Order name: Basic Metabolic Panel; Complete Time: 00:49 EDMS 09/03 23:11 Order name: CBC with Automated Diff; Complete Time: 01:02 EDMS 09/03 23:11 Order name: Liver (Hepatic) Function; Complete Time: 00:49 EDMS 09/04 00:19 Order name: CBC Smear Scan; Complete Time: 01:02 EDMS 09/03 23:10 Order name: EKG; Complete Time: 23:12 pm1 09/03 23:10 Order name: Cardiac monitoring; Complete Time: 00:20 pm1 09/03 23:10 Order name: EKG - Nurse/Tech; Complete Time: 00:20 pm1 09/03 23:10 Order name: IV Saline Lock; Complete Time: 00:20 pm1 09/03 23:10 Order name: Labs collected and sent; Complete Time: 00:20 pm1 09/03 23:10 Order name: O2 Per Protocol; Complete Time: 00:20 pm1 09/03 23:10 Order name: O2 Sat Monitoring; Complete Time: 00:20 pm1 Administered Medications: 09/03 23:35 Drug: predniSONE 60 mg Route: PO; rr5 09/04 00:57 Follow up: Response: No adverse reaction rr5 09/03 23:40 Drug: Albuterol - atroVENT (3:1) (2.5 mg - 0.5 mg) 3 ml Route: Nebulizer; rr5 09/04 00:57 Follow up: Response: No adverse reaction rr5 01:03 CANCELLED (Duplicate Order): Rocephin 1 grams IV at calculated rate once; Given slow IV pm1 push per pharmacy instructions 01:05 Drug: Rocephin 1 grams Route: IV; Rate: calculated rate; Site: right hand; rr5 01:19 Follow up: Response: No adverse reaction; IV Status: Completed infusion; IV Intake: [id number] Disposition: 01:20 Co-signature as Attending Physician, Juwan Dyer MD. pkl Disposition: 09/04/20 01:05 Discharged to Home. Impression: Chronic obstructive pulmonary disease with (acute) exacerbation. - Condition is Stable. - Discharge Instructions: How to Use an Inhaler, Chronic Obstructive Pulmonary Disease Exacerbation. - Prescriptions for Zithromax Z- Carl 250 mg Oral Tablet - take 1 tablet by ORAL route as directed for 5 days Day 1 - take two (2) tablets one time. Day 2, 3, 4 , 5 take one (1) tablet once daily.; 6 tablet. Medrol (Carl) 4 mg Oral Tablets, Dose Pack - take 1 tablet by ORAL route as directed - follow package instructions; 1 packet. Albuterol Sulfate 90 mcg/actuation - inhale 1-2 puff by INHALATION route every 4-6 hours; 1 Inhaler. Albuterol Sulfate 2.5 mg /3 mL (0.083 %) Inhalation Solution for Nebulization - inhale 1 unit by NEBULIZATION route every 8 hours As needed; 1 box. - Medication Reconciliation Form, Thank You Letter, Antibiotic Education, Prescription Opioid Use form. - Follow up: Emergency Department; When: As needed; Reason: Worsening of condition. Follow up: Private Physician; When: 2 - 3 days; Reason: Recheck today's complaints, Continuance of care, Re-evaluation by your physician. - Problem is new. - Symptoms have improved. Signatures: Dispatcher [employer] EDJuwan Suarez MD MD pkl Ethan Winters, FINANCIAL DIRECTOR FINANCIAL DIRECTOR pm1 Jonnie Camara, RN RN rr5 Corrections: (The following items were deleted from the chart) 01:03 01:03 Rocephin 1 grams IV at calculated rate once; Given slow IV push per pharmacy pm1 instructions ordered. pm1 01:20 01:05 09/04/2020 01:05 Discharged to Home. Impression: Chronic obstructive pulmonary rr5 disease with (acute) exacerbation. Condition is Stable. Forms are Medication Reconciliation Form, Thank You Letter, Antibiotic Education, Prescription Opioid Use. Follow up: Emergency Department; When: As needed; Reason: Worsening of condition. Follow up: Private Physician; When: 2 - 3 days; Reason: Recheck today's complaints, Continuance of care, Re-evaluation by your physician. Problem is new. Symptoms have improved. pm1
--- NOTE | 2020-09-04 01:06 | ER ---
Nurse's Notes [facility] Name: Wendi Norton Age: 55 yrs Sex: Female : 1965 Arrival Date: 09/03/2020 Time: 22:41 Bed 15 Private MD: Diagnosis: Chronic obstructive pulmonary disease with (acute) exacerbation Presentation: 09/03 23:00 Chief complaint: Patient states: having difficulty of breathing started couple of days rr5 ago, denies any fever and congestion. 23:00 Coronavirus screen: Client denies travel out of the [place] in the last 14 days. rr5 difficulty breathing, Client presents with at least one sign or symptom that may indicate coronavirus-19. Standard/surgical mask placed on the client. Provider contacted for isolation considerations. smokers cough positive. Ebola Screen: Patient negative for fever greater than or equal to 101.5 degrees Fahrenheit, and additional compatible Ebola Virus Disease symptoms Patient denies exposure to infectious person. Patient denies travel to an Ebola-affected area in the 21 days before illness onset. Initial Sepsis Screen: Does the patient meet any 2 criteria? No. Patient's initial sepsis screen is negative. Does the patient have a suspected source of infection? Yes: Productive cough/pneumonia. Risk Assessment: Do you want to hurt yourself or someone else? Patient reports no desire to harm self or others. Onset of symptoms was September 03, 2020. 23:00 Method Of Arrival: Ambulatory rr5 23:00 Acuity: RAUL 3 rr5 Triage Assessment: 23:00 General: Appears in no apparent distress. comfortable, Behavior is calm, cooperative, rr5 appropriate for age. Respiratory: Onset: The symptoms/episode began/occurred gradually, the patient has mild shortness of breath. Historical: - Allergies: 23:12 Motrin; rr5 - Home Meds: 23:12 Adderall XR Oral 1 cap once daily [Active]; clonazepam 2 mg Oral tab 1 tab daily rr5 [Active]; fluoxetine 20 mg Oral tab 1 tab once daily [Active]; lithium carbonate 300 mg Oral cpER 1 tab nightly [Active]; quetiapine 300 mg Oral tab 1 tab nightly [Active]; Tylenol #3 Oral [Active]; Vicodin 5-300 mg Oral tab 1 tab daily [Active]; - PMHx: 23:12 ADD/ADHD; Asthma; Bipolar disorder; breast cancer- in remission; COPD; Depression; rr5 Diabetes - NIDDM; Diverticulitis; Hepatitis; PTSD; Pain Management; - PSHx: 23:12 ; arm surgery; leg surgery; rr5 - Immunization history:: Adult Immunizations up to date. - Social history:: Smoking status: Patient reports the use of cigarette tobacco products, smokes one-half pack cigarettes per day, Patient/guardian denies using alcohol, street drugs. Screenin/28 00:00 Abuse screen: Denies threats or abuse. Denies injuries from another. Nutritional rr5 screening: No deficits noted. Tuberculosis screening: No symptoms or risk factors identified. Fall Risk IV access (20 points). Total [place]leton Fall Scale indicates No Risk (0-24 pts). Assessment: 09/03 23:00 General: Appears in no apparent distress. comfortable, Behavior is calm, cooperative, rr5 appropriate for age. 23:00 Pain: Denies pain. Neuro: Level of Consciousness is awake, alert, obeys commands, rr5 Oriented to person, place, time, situation. Cardiovascular: Capillary refill < 3 seconds Patient's skin is warm and dry. Rhythm is regular. Respiratory: Reports Airway is patent Respiratory effort is even, unlabored, Respiratory pattern is regular, symmetrical, GI: No signs and/or symptoms were reported involving the gastrointestinal system. : No signs and/or symptoms were reported regarding the genitourinary system. EENT: No signs and/or symptoms were reported regarding the EENT system. Derm: Skin is intact, is healthy with good turgor, Skin temperature is warm. Musculoskeletal: Circulation, motion, and sensation intact. Capillary refill < 3 seconds. 09/04 00:10 Reassessment: Patient appears in no apparent distress at this time. Patient is alert, rr5 oriented x 3, equal unlabored respirations, skin warm/dry/pink. Patient states symptoms have improved. 00:54 Reassessment: Patient appears in no apparent distress at this time. Patient is alert, rr5 oriented x 3, equal unlabored respirations, skin warm/dry/pink. resting eyes closed breathing spontaneously. 01:18 Reassessment: Patient appears in no apparent distress at this time. Patient is alert, rr5 oriented x 3, equal unlabored respirations, skin warm/dry/pink. discharge instruction given and explained without complaints made. Vital Signs: 09/03 23:00 Weight 95.25 kg; Height 5 ft. 2 in. (157.48 cm); rr5 23:04 BP 97 / 61; Pulse 92; Resp 24; Temp 98.7; Pulse Ox 94% on 2 lpm NC; dh4 09/04 00:00 BP 95 / 62; Pulse 95; Resp 19; Pulse Ox 98% on 2 lpm NC; rr5 00:55 BP 100 / 52; Pulse 100; Resp 21; Pulse Ox 98% on 2 lpm NC; rr5 01:18 BP 110 / 62; Pulse 92; Resp 20; Pulse Ox 99% on R/A; rr5 09/03 23:00 Body Mass Index 38.41 (95.25 kg, 157.48 cm) rr5 ED Course: 09/03 22:41 Patient arrived in ED. ag3 22:53 Ethan Winters NP is PHCP. pm1 22:53 Juwan Dyer MD is Attending Physician. pm1 23:08 Jonnie Camara, KEYUR is Primary Nurse. rr5 23:10 Triage completed. rr5 23:10 Patient has correct armband on for positive identification. Placed in gown. Bed in low rr5 position. Call light in reach. Side rails up X2. front desk monitor on. Pulse ox on. NIBP on. 23:10 Arm band placed on. rr5 23:39 XRAY Chest (1 view) In Process Unspecified. EDMS 09/04 00:04 Inserted saline lock: 20 gauge in right hand, using aseptic technique. rr5 00:05 EKG done, by ED staff, reviewed by Juwan Dyer MD. rr5 01:09 No provider procedures requiring assistance completed. IV discontinued, intact, rr5 bleeding controlled, No redness/swelling at site. Pressure dressing applied. Administered Medications: 09/03 23:35 Drug: predniSONE 60 mg Route: PO; rr5 09/04 00:57 Follow up: Response: No adverse reaction rr5 09/03 23:40 Drug: Albuterol - atroVENT (3:1) (2.5 mg - 0.5 mg) 3 ml Route: Nebulizer; rr5 09/04 00:57 Follow up: Response: No adverse reaction rr5 01:03 CANCELLED (Duplicate Order): Rocephin 1 grams IV at calculated rate once; Given slow IV pm1 push per pharmacy instructions 01:05 Drug: Rocephin 1 grams Route: IV; Rate: calculated rate; Site: right hand; rr5 01:19 Follow up: Response: No adverse reaction; IV Status: Completed infusion; IV Intake: [id number] Intake: 01:19 IV: 10ml; Total: 10ml. rr5 Outcome: 01:05 Discharge ordered by . pm1 01:09 Discharged to home ambulatory, with family. rr5 01:09 Condition: stable 01:09 Discharge instructions given to patient, Instructed on discharge instructions, follow up and referral plans. medication usage, Demonstrated understanding of instructions, follow-up care, medications, Prescriptions given X 3. 01:20 Patient left the ED. rr5 Signatures: Dispatcher [employer] EDMS Ethan Winters, QUETA DIRECTOR STRATEGIC ACCOUNT MANAGEMENT pm1 Selene Avilez ag3 Jonnie Camara RN RN rr5 Marcelo Gannon 4
[2020-09-04] MEDS ORDERED: CEFTRIAXONE/SWI 1gm 1 GM/10 ML SYR ONE (01:15)
[2020-09-04 02:03] VITALS: TEMP 98.7
[2020-09-04 02:13] VITALS: BP 110/62; O2SAT 99
--- NOTE | 2020-09-04 07:20 | EKG ---
Test Date: 2020-09-03 Test Time: 23:52:09 Skein Inspector: RR MEASUREMENT RESULTS: Intervals: Rate: 87 MO: 132 QRSD: 88 QT: 364 QTc: 438 [place]: P: 67 MO: 132 QRS: 62 T: 59 INTERPRETIVE STATEMENTS: Normal sinus rhythm Normal ECG Compared to ECG 03/31/2020 22:29:35 Sinus tachycardia no longer present Fusion complex(es) no longer present Atrial abnormality no longer present Electronically Signed On 09-04-20 07:19:31 CDT by Keith Aldana
--- NOTE | 2020-09-04 09:11 | RAD REPORT ---
EXAM DESCRIPTION: RAD - Chest Single View - 09/03/2020 11:39 pm CLINICAL HISTORY: SOB Chest pain. COMPARISON: Chest Single View dated 03/31/2020; Chest Single View dated 03/18/2020; Chest Single View dated 02/20/2020; Chest Single View dated 12/21/2018 FINDINGS: Portable technique limits examination quality. The lungs are grossly clear. The heart is upper limit normal in size. No displaced fractures. IMPRESSION: No acute intrathoracic process suspected.
== END 2020-09-04 01:20 | disposition home or self-care (01) ==
LOC: ER 22:40
DX: J44.1 Chronic obstructive pulmonary disease with (acute) exacerbation (principal); F17.210 Nicotine dependence, cigarettes, uncomplicated; E11.9 Type 2 diabetes mellitus without complications; F31.9 Bipolar disorder, unspecified; Z85.3 Personal history of malignant neoplasm of breast; Z88.6 Allergy status to analgesic agent
CPT/HCPCS: 93005; 85025; 80048; 36415; 83735; 85610; 80076; 84484; 83880; 71045; 96374; 99285; J0696; J7512

== ENCOUNTER 2020-10-27 10:01 | Emergency (ER) | payer OTHER ==
--- OUTSIDE RECORDS SUMMARY | 2020-10-27 10:05 | XMS REPORT | Clinical Summary ---
:1965 Author Organization [facility] Address [address] [place] [address] Care Team Providers Name Role Phone Unavailable [...] (BMI 30 -39.9); Witnessed seizu re-like activity ([facility]) 04/01/2020 Orders Only General Internal Medicine 04/01/2020 Travel after 10/27/2019 Social History Tobacco Use Types Packs/Day Years [...] 04/01/2020 1:00 PM CDT Plan of Treatment Health Maintenance Due Date Last Done Comments COLON CANCER SCREENING COLONOSCOPY 1965 PNEUMOCOCCAL VACCINE 0-64 YRS (1 of 1 - PPSV23) 1970 CERVICAL CANCER SCREENING PAP ONLY (Age 21-65) 1985 MEDICARE ANNUAL WELLNESS (YEAR 2 or FIRST YEAR if no 10/09/2006 IPPE) LIPID PANEL 2009 BREAST CANCER SCREENING 04/14/2020 04/14/2018 INFLUENZA VACCINE (#1) 2020 Procedures Procedure Name Priority Date/Time Associated Comments [...] are i n the results section. SARS-COV2/RT-PCR ([facility] Routine 04/05/2020 5:02 R esults for this [...] 348 ms QTC Calculation(Bazett) 473 ms P [place] 61 degrees R [place] 50 degrees T [place] 42 degrees Sinus tachycardia Otherwise normal ECG When compared with ECG of 23:37, No significant change was fo und ECG 12-LEAD Routine 04/01/2020 8:31 AM CDT Resu lts for this procedure are i n the results section . SARS-COV2/RT-PCR (HS & STAT 04/01/2020 5:24 AM CDT Results [...] i n the results section . after 10/27/2019 Results RHYTHM STRIP - SCAN (04/17/2020 3:11 PM CDT) Narrative Performed At This result has an attachment that is no t available. POC-Glucose meter (04/15/2020 10:05 PM CDT)Only the most recent of52 results within the time period is included. POC-Glucose Meter 124 (H)Comment: 70 - 110 mg/dL [facility] : TESTED AT [facility] [address], [address]: Crystal Gazer/Technic renee ID = [id number] for RAY ERVIN Specimen Blood Performing Organization Address City/[facility]/Zipcode Phone Number [address] [address] NORMAL [place] level (04/12/2020 4:26 AM CDT)Only the most recent of3 resultswithin the time period is included. Pathologist Sig nature [place] Level 0.6 (L) 0.8 - 1.2 mmol/L [facility] Specimen Blood Narrative Performed At This result has an attachment that is no t available. Performing Organization Address [facility] Cent[facility] Phone Number [address] [address] NORMAL CBC with platelet count + automated diff (04/10/2020 3:58 AM CDT)Only the most recent of10 resultswithin the time period is included. Pathologist Sig nature WBC 4.6 3.5 - 10.5 [facility] K/L [facility] RBC 4.19 3.93 - 5.22 [facility] M/L [facility] Hemoglobin 12.0 11.2 - 15.7 [facility] GM/DL [facility] Hematocrit 37.6 34.1 - 44.9 % [facility] MCV 89.7 79.4 - 94.8 fL [facility] MCH 28.6 25.6 - 32.2 pg [facility] MCHC 31.9 (L) 32.2 - 35.5 [facility] GM/DL [facility] RDW 13.8 11.7 - 14.4 % [facility] Platelets 92 (L) 150 - 450 K/CU [facility] MPV 12.3 9.4 - 12.3 fL [facility] nRBC 0 0 - 0 /100 WBC [facility] % Neutros 48 % [facility] % Lymphs 37 % [facility] % Monos 11 % [facility] % Eos 3 % [facility] % Baso 0 % [facility] # Neutros 2.20 1.56 - 6.13 [facility] # Lymphs 1.69 1.18 - 3.74 [facility]/L [facility] # Monos 0.50 (H) 0.24 - 0.36 [facility] # Eos 0.13 0.04 - 0.36 [facility] # Baso 0.02 0.01 - 0.08 [facility] Immature 0 0 - 1 % [facility] Granulocytes-Relative [facility] Specimen Blood Performing Organization Address City/State/Zipcode Phone Number [facility] [address] [place] [address] CENTER Basic Metabolic Panel (04/10/2020 3:58 AM CDT)Only the most recent of6 results within the time period is included. Sodium 143 136 - 145 meq/L [facility] Potassium 4.0 3.5 - 5.1 meq/L [facility] Chloride 111 (H) 98 - 107 meq/L [facility] CO2 25 22 - 29 meq/L [facility] BUN 11 7 - 21 mg/dL [facility] Creatinine 0.76 0.57 - 1.25 [facility] mg/dL [facility] Glucose 106 (H) 70 - 105 mg/dL [facility] Calcium 9.6 8.4 - 10.2 [facility] mg/dL [facility] EGFR 79Comment: ESTIMATED mL/min/1.[address] [facility] GFR IS NOT [facility] ACCURATE CENTER CREATININE CLEARANCE IN PREDICTING GLOMERULAR FILTRATION RATE. ESTIMATED GFR IS NOT APPLICABLE FOR DIALYSIS PATIENTS. Specimen Blood Narrative Performed At Crystal Gazer DEEPA Velazquez ZAHRA Bettencourt [facility] Performing Organization Address City/State/Zipcode Phone Number [facility] [address] [place] [address] CENTER Comprehensive metabolic panel (04/08/2020 3:42 AM CDT)Only the most recent of3 resultswithin the time period is included. Protein, Total 7.5 6.0 - 8.3 [facility] gm/dL [facility] Albumin 3.7 3.5 - 5.0 [facility] g/dL [facility] Alkaline 94 40 - 150 U/L [facility] Phosphatase [facility] Total Bilirubin 0.9 0.2 - 1.2 [facility] mg/dL [facility] Sodium 141 136 - 145 [facility] meq/L [facility] Potassium 4.0 3.5 - 5.1 [facility] meq/L [facility] Chloride 110 (H) 98 - 107 [facility] meq/L [facility] CO2 23 22 - 29 meq/L [facility] BUN 10 7 - 21 mg/dL [facility] Creatinine 0.72 0.57 - 1.25 [facility] mg/dL [facility] Glucose 123 (H) 70 - 105 [facility] mg/dL [facility] Calcium 9.6 8.4 - 10.2 [facility] mg/dL [facility] AST 28 5 - 34 U/L [facility] ALT 39 6 - 55 U/L [facility] EGFR 84Comment: mL/min/1.73 [facility] ESTIMATED GFR IS sq [facility] NOT [facility] CREATININE CLEARANCE IN PREDICTING GLOMERULAR FILTRATION RATE. ESTIMATED GFR IS NOT APPLICABLE FOR DIALYSIS PATIENTS. Specimen Blood Narrative Performed At Crystal Gazer DEEPA Velazquez DELFINO Cardozo [facility] Performing Organization Address City/State/Zipcode Phone Number [facility] [address] [place] [address] chest for pulmonary embolus (04/06/2020 4:30 PM CDT) Specimen Narrative Performed At FINAL REPORT Tag & See RIS Exam: CT pulmonary angiogram Clinical History: Pulmonary [...] Report Verified Date/Time: 04/06/2020 16:45:26 Reading Location: [address] Reading Room Procedure Note Interface, External [...] Verified Date/Time: 04/06/2020 1 6:45:26 Reading Location: [facility] [id number] [facility] Reading Room Performing Organization Address City/State/Zipcode Phone Number RIS aPTT (04/06/2020 1:47 PM CDT)Only the most recent of2 resultswithin the time period is included. Pathologist Sig nature PTT 31.0 22.5 - 36.0 seconds [facility] Specimen Blood Narrative Performed At 6 hours after starting heparin infusion and [facility] as indicated per sliding scale Performing Organization Address City/[facility]/Zipcode Phone Number [address] [address] CENTER Respiratory Panel [facility] (04/06/2020 9:15 AM CDT) Human Metapneumovirus Not detected Not detected, [facility] Rhinovirus Not detected Not detected, [facility] Influenza A Not detected Not detected, [facility] INFLUENZA A (NO [facility] SUBTYPE) [facility] Influenza A subtype H1 [facility] Influenza A Subtype H3 [facility] Influenza A Subtype [facility] H1-2009 [facility] Influenza B Not detected Not detected, [facility] Respiratory Syncytial Not detected Not detected, [facility] Virus [facility] Parainfluenza Virus 1 Not detected Not detected, [facility] Parainfluenza Virus 2 Not detected Not detected, [facility] Parainfluenza virus 3 Not detected Not detected, [facility] Parainfluenza Virus 4 Not detected Not detected, [facility] Adenovirus Not detected Not detected, [facility] Coronavirus 229E Not detected Not detected, [facility] Coronavirus HKU1 Not detected Not detected, [facility] Coronavirus NL63 Not detected Not detected, [facility] Coronavirus OC43 Not detected Not detected, [facility] Bordetella Pertussis Not detected Not detected, [facility] Chlamydophila Not detected Not detected, [facility] Pneumoniae [facility] Mycoplasma Pneumoniae Not detected Not detected, [facility] Specimen Nasopharyngeal - Nasopharyngeal wall str ucture (body structure) Narrative Performed At Other viruses and bacteria not targeted by [facility] this PCR panel cannot be excluded; therefore clinical correlation and follow up of serology, culture results, and other molecular studies is required. The results are not intended to be used as the sole means for clinical diagnosis or patient management decisions. This sample was tested at the [facility] using the GEOLIDArray Respiratory Panel. It is FDA cleared and has been verified and approved by the [facility] for clinical use on nasopharyngeal swab specimens. The performance of the FilmArray RP has not been established in individuals who received influenza vaccine. Recent administration of a nasal influenza vaccine may cause false positive results for Influenza A and/or Influenza B. Performing Organization Address City/State/Zipcode Phone Number [facility] [address] [place] [address] NORMAL Urinalysis w/Microscopic + Reflex to Culture (04/05/2020 7:02 PM CDT)Only the most recent of2 resultswithin the time period is included. Color, UA Yellow [facility] Clarity, UA Clear [facility] Specific [place], 1.015 1.001 - 1.035 [facility] pH, UA 7.0 5.0 - 8.0 [facility] Protein, UA Negative Negative [facility] Glucose, UA Negative Negative [facility] Ketones, UA Negative Negative [facility] Bilirubin, UA Negative Negative [facility] Blood, UA Negative Negative [facility] Nitrite, UA Negative Negative [facility] Leukocytes, UA Moderate (A) Negative [facility] Urobilinogen, UA 6.0 (H) 0.2 - 1.0 mg/dL [facility] RBC, UA <1 /HPF [facility] WBC, UA 14 /HPF [facility] Bacteria, UA Occasional [facility] Squam Epithel, UA 5 /HPF [facility] Specimen Source [facility] Specimen Urine - Urine specimen collection, clean catch (procedure) Narrative Performed At Crystal Gazer ID - [auto] [facility] Crystal Gazer ID - ann Performing Organization Address City/State/Zipcode Phone Number [facility] [address] [place] [address] NORMAL Urine culture (04/05/2020 7:02 PM CDT) Pathologist Sig nature Result >100,000 col/mL [facility] Escherichia coli (A) [facility] Specimen Urine - Urine specimen collection, clean catch (procedure) Narrative Performed At <10,000 col/mL gram negative layla of a second [facility] type 40-49,000 col/mL skin krystin Organism Antibiotic [...] + Sulfamethoxazole >=320: Resistant Performing Organization Address [facility] Phone Number [address] [address] CENTER D-dimer (04/05/2020 6:48 PM CDT) Pathologist Sig nature D-Dimer, Quant 0.89 (H) <0.50 MG/L FEU [facility] Specimen Blood Narrative Performed At Intended Use: The D-Dimer Assay can be used [facility] to aid in the diagnosis of Deep Vein Thrombosis (DVT) and Pulmonary Embolism Disease (PED). In patients with low pre-test probability, various studies concerning STA Liatest D-dimer test have reported that with a cutoff value of 0.50 MG/L FEU, the Negative Predictive Value (NPV) regarding the exclusion of thrombosis is within 95-100% range. Performing Organization Address [facility] Phone Number [address] [address] CENTER Phosphorus (04/05/2020 6:48 PM CDT)Only the most recent of4 resultswithin the time period is included. Pathologist Sig nature Phosphorus 2.9 2.3 - 4.7 mg/dL [facility] Specimen Blood Narrative Performed At Crystal Gazer ID - DB [facility] Performing Organization Address [facility]/[place] [address] CENTER Magnesium (04/05/2020 6:48 PM CDT)Only the most recent of4 resultswithin the time period is included. Pathologist Sig nature Magnesium 1.6 1.6 - 2.6 mg/dL [facility] Specimen Blood Narrative Performed At Crystal Gazer ID - DB [facility] Performing Organization Address [facility] [place] [address] CENTER SARS-CoV2/RT-PCR (Symptomatic ONLY) (04/05/2020 5:02 PM CDT)Only the most recent of2 resultswithin the time period is included. SARS-COV2/RT-PCR Not Detected Not Detected, [facility] SARS-COV-2 [facility] Specimen Other - Nasopharyngeal wall structure (b judah structure) Narrative Performed At Negative results do not preclude SARS-CoV-2 [facility] infection and should not be used as [...] the Act. Fact Sheet for Healthcare Providers: https://www.[employer]ushino/Documents/Xpert%20Xpre ss%20SARS%20CoV-2/Fact%20Sheets/3023802%20SAR S-COV-2%20HEALTHCARE%20PROVIDERS%20FACT%20SHEE T.pdf Fact Sheet for Healthcare Patients: https://www.Yushino/Documents/Xpert%20Xpre ss%20SARS%20CoV-2/Fact%20Sheets/3023801%20SAR S-COV-2%20PATIENT%20FACT%20SHEET.pdf Performing Laboratory: [place] [address] Performing Organization Address City/State/[place] [address] CENTER XR chest 1 view portable / [...] Report Verified Date/Time: 04/05/2020 17:16:45 Reading Location: [facility] [id number] Reading Room Procedure Note Interface, External Ris [...] Verified Date/Time: 04/05/2020 1 7:16:45 Reading Location: [address] Reading Room Performing Organization Address City/State/Zipcode Phone Number GE RIS Lactic acid, venous (04/05/2020 4:24 PM CDT) Pathologist Sig nature Lactate, Venous 1.24 0.50 - 2.20 mmol/L [facility] Specimen Blood Narrative Performed At Crystal Gazer ID - DB [facility] Performing Organization Address [facility] Centercode Phone Number [facility] [address] [place] [address] CENTER ECG 12 lead (04/05/2020 4:08 PM CDT)Only the most recent of3 resultswithin the time period is included. Specimen Narrative Performed At Ventricular Rate 119 BPM GE MUSE Atrial Rate 119 BPM P-R Interval 128 ms QRS Duration 84 ms Q-T Interval 308 ms QTC Calculation(Bazett) 433 ms P [place] 68 degrees R [place] 64 degrees T [place] 55 degrees Sinus tachycardia Otherwise normal ECG Confirmed by MD MCCABE MAJID ([id number]) on 020 11:22:13 AM Procedure Note Interface, External Ris In - 04/06/2020 11:22 AM CDT Ventricular Rate 119 BPM Atrial Rate 119 BPM P-R Interval 128 ms QRS Duration 84 ms Q-T Interval 308 ms QTC Calculation(Bazett) 433 ms P [place] 68 degrees R [place] 64 degrees T [place] 55 degrees Sinus tachycardia Otherwise normal ECG Confirmed by MD MCCABE MAJID ( [id number]) on 04/06/2020 11:22:13 AM Performing Organization Address City/[facility] Cent[facility] Phone Number GE MUSE Hepatic function panel (04/04/2020 3:21 PM CDT)Only the most recent of3 results within the time period is included. Pathologist Sig nature Protein, Total 7.4 6.0 - 8.3 gm/dL [facility] Albumin 3.8 3.5 - 5.0 g/dL [facility] Total Bilirubin 1.4 (H) 0.2 - 1.2 mg/dL [facility] Bilirubin, Direct 0.7 (H) 0.1 - 0.5 mg/dL [facility] Alkaline Phosphatase 102 40 - 150 U/L [facility] AST 67 (H) 5 - 34 U/L [facility] ALT 40 6 - 55 U/L [facility] Specimen Blood Narrative Performed At Crystal Gazer ID - NTP [facility] Performing Organization Address City/State/Zipcode Phone Number [facility] [address] [place] [address] CENTER EKG-SCANNED (04/04/2020 1:41 PM CDT) Narrative Performed At This result has an attachment that is no t available. US abdomen limited (04/03/2020 5:45 AM CDT) Specimen Narrative Performed At FINAL REPORT [employer] History: Evaluate for cirrhosis Abdominal ultrasound dated [...] 6:20:42 Performing Organization Address City/State/Zipcode Phone Number [facility] Hemoglobin A1c (04/03/2020 3:34 AM CDT) [facility] Hemoglobin A1C 6.0 4.3 - 6.1 % [facility] Specimen Blood Performing Organization Address City/State/Zipcode Phone Number [facility] [address] [place] [address] CENTER MR brain without IV contrast (04/02/2020 8:22 PM CDT) Specimen Narrative Performed At FINAL REPORT [facility] MR, BRAIN, WITHOUT CONTRAST INDICATION: Neuro deficit, [...] Date/Time: 04/02/2020 2 0:37:03 Performing Organization Address [facility]/Zipcode Phone Number GE RIS Rapid drug screen, urine (04/02/2020 1:14 PM CDT) Barbiturate Screen Negative Negative [facility] Benzodiazepine Screen Positive (A) Negative [facility] Cocaine (Metab.) Screen Negative Negative [facility] Methadone Screen Negative Negative [facility] Opiate Screen Negative Negative [facility] Cannabinoid Screen Negative Negative [facility] Amph/Methamph Screen Negative Negative [facility] Phencyclidine Screen Negative Negative [facility] pH, UA 6.5 5.0 - 8.0 [facility] Specimen Urine Narrative Performed At [facility] Cocaine 300 ng/mL Cannabinoid 50 ng/mL Benzodiazepine 200 ng/mL Barbiturate 200 ng/mL Phencyclidine 25 ng/mL Opiate 300 ng/mL Methadone 300 ng/mL Amphetamine/ 1000 ng/mL Methamphetamine This assay provides an unconfirmed qualitative test result for the clinical management of patients in emergency situations. Chain of custody not maintained. Some alxn-[id number] medications, as well as adulterants, may cause inaccurate results. Clinical correlation should be applied. A more comprehensive drug screen or confirmation of a detected drug may be performed upon request. Crystal Gazer ID - ADMIN Performing Organization Address [facility]/Zipcode Phone Number [facility] [address] [place] [address] NORMAL Drug screen, urine, comprehensive (04/02/2020 1:12 PM CDT) Specimen Urine Narrative Performed At This result has an attachment that is no t available. Ammonia (04/02/2020 12:22 PM CDT) Pathologist Sig nature Ammonia 60 18 - 72 mol/L [facility] Specimen Blood Narrative Performed At Crystal Gazer DEEPA Mota [facility] Performing Organization Address City/[facility]/Zipcode Phone Number [facility] [address] [place] [address] CENTER Blood culture (04/02/2020 12:08 PM CDT)Only the most recent of2 resultswithin the time period is included. Pathologist Sig nature Result No growth in 5 days [facility] Specimen Blood - Entire left upper arm (body stru cture) Performing Organization Address City/[facility] Centercode Phone Number [facility] [address] [place] [address] NORMAL EEG 12-26 HR Continuous Monitoring with Video (04/02/2020 6:32 AM CDT) Specimen Narrative Performed At Date of EE04/01/2020 to 04/02/2020 GE RIS DATE OF REPORT: 04/02/2020 ACC: [id number] EEG Number: [id number] Start time: 04/01/2020 @ 14:41 PM Stop time: 04/02/2020 @ 11:30 AM ICD-10: R56.9 CPT Code: 67332 HISTORY: 54 y.o. Female with ADHD, bipol [...] to 04/02/2020 DATE OF REPORT: 04/02/2020 ACC: [id number] EEG Number: [id number] Start time: 04/01/2020 @ 14:41 PM Stop time: 04/02/2020 @ 11:30 AM ICD-10: R56.9 CPT Code: 43868 HISTORY: 54 y.o. Female with ADHD, bipol [...] Attending Performing Organization Address City/State/Zipcode Phone Number [facility] Vitamin B12 and Folate (04/01/2020 2:13 PM CDT) [facility] Vitamin B12 929 (H) 213 - 816 pg/mL [facility] Folate 15.80 >=7.00 ng/mL [facility] Specimen Blood Narrative Performed At Crystal Gazer ID - NTP [facility] Performing Organization Address [facility]/Zipcode Phone Number [address] [address] CENTER TSH/Free T4 If Indicated (04/01/2020 2:13 PM CDT) Pathologist Sig nature TSH 0.057 (L) 0.350 - 4.940 uIU/mL [facility] Specimen Blood Narrative Performed At Crystal Gazer ID - NTP [facility] Performing Organization Address [facility] Centercode Phone Number [address] [address] CENTER T4, free (04/01/2020 2:13 PM CDT) Pathologist Sig nature Free T4 1.19 0.70 - 1.48 ng/dL [facility] Specimen Blood Narrative Performed At Crystal Gazer ID - NTP [facility] Performing Organization Address [facility] Centerconv Phone Number [address] [address] CENTER PT/aPTT (04/01/2020 5:08 AM CDT) Pathologist Sig nature Protime 15.4 (H) 11.9 - 14.2 seconds [facility] INR 1.3 <=5.9 [facility] PTT 25.8 22.5 - 36.0 seconds [facility] Specimen Blood Narrative Performed At Effective 04/05/2019: PT Reference Range [facility] Change New: 11.9-14.2 Previous: 11.7-14.7 RECOMMENDED COUMADIN/WARFARIN INR THERAPY RANGES STANDARD DOSE: 2.0-3.0 Includes: PROPHYLAXIS for venous thrombosis, systemic embolization; TREATMENT for venous thrombosis and/or pulmonary embolus. HIGH RISK: Target INR is 2.5-3.5 for patients wiht mechanical heart valves. Performing Organization Address [facility] Centercode Phone Number [address] [address] NORMAL Troponin I (04/01/2020 5:08 AM CDT) Pathologist Sig nature Troponin I 0.01 0.00 - 0.03 ng/mL [facility] Specimen Blood Narrative Performed At Troponin I (TnI) levels must be interpreted [facility] in the context of the presenting symptoms and the clinical findings. Elevated TnI levels indicate myocardial damage, but are not specific for ischemic heart disease. Elevated TnI levels are seen in patients with other cardiac conditions (including myocarditis and congestive heart failure), and slight TnI elevations occur in patients with other conditions, including sepsis, renal failure, acidosis, acute neurological disease, and persistent tachyarrhythmia. Crystal Gazer ID - NTP Performing Organization Address [facility] Phone Number [address] [phone] NORMAL Creatine Kinase (CK) (04/01/2020 5:08 AM CDT) Pathologist Sig nature Total CK 79 29 - 200 U/L [facility] Specimen Blood Narrative Performed At Crystal Gazer ID - ZAHRA M [facility] Performing Organization Address [facility] Centercode Phone Number [address] [phone] NORMAL ECG/EKG Interpretation (04/01/2020 4:51 AM CDT) Narrative Performed At Glendy Clayton MD 04/15/2020 3:33 PM ECG/EKG Interpretation Date/Time: 04/15/2020 3:33 PM Performed by: Glendy Clayton MD Authorized by: Arturo Downs MD The ECG was interpreted by ED physician. The ECG is in terpreted as sinus tachycardia. Rate is tachycardic. Heart rate is [address] segments normal. T waves normal. [place] is normal. Other findings include: prolonged QTc in terval. Clinical Impression: non-specific ECGECG reviewed and does no t meet STEMI criteria. Patient tolerance: Patient tolerated the procedu re well with no immediate complications CRITICAL CARE (04/01/2020 4:51 AM CDT) Narrative Performed At Glendy Clayton MD 04/15/2020 3:33 PM Critical Care Performed by: Glendy Clayton MD Authorized by: Glendy Clayton MD Total critical care time: 30 minutes Critical care was necessary to treat or prevent imminent or life-threatening deterioration of the fo llowing conditions: respiratory failure and [employer] failure or compromise. Critical care was time [...] studies and re-evaluation of patient's condition. after 10/27/2019 Insurance Payer Benefit Plan / Subscriber ID Effective Dates Phone Addre ss Type Group MEDICARE MEDICARE A B [id number] 2005-Pres Medicare t [place] MED[place] MEDICAID [place] [id number] 2017-Pres t MEDICAID MEDICAID OF [id number] 2015-Present M bianca [place] Advance Directives For more information, please contact: [phone] Code Status Date Activated Date Inactivated Comments Full Code 04/01/2020 6:44 AM 04/16/2020 10:45 AM This code status was determined by: Patient Full Code 04/22/2016 12:20 PM 04/29/2016 5:47 PM This code status was determined by: Patient
--- OUTSIDE RECORDS SUMMARY | 2020-10-27 10:09 | XMS REPORT | Continuity of Care Document ---
:1965 Author Organization [facility] t Address [facility] Baker [address] [place] [id number] Care Team Providers Name Role Phone JANEEN Primary Care Physician Unavailable Maria M BETANCOURT Attending Clinician Rosa Maria RN, R Attending Clinician Unavailable Janeen MOYA Attending Clinician Sam BAER Attending Clinician Unavailable JANEEN Attending Clinician Unavailable MARIA M Attending Clinician Unavailable Guicho LEAVITT Attending Clinician KOREY Attending Clinician Unavailable Korey MOYA Attending Clinician Harrison RN Attending Clinician Unavailable Forrest MOYA Attending Clinician Denisse MOYA Attending Clinician Sandra Burton MD Attending Clinician Divine Lanier MD Attending Clinician Yareli MOYA Attending Clinician FORREST Attending Clinician Unavailable Roger KHALIL Attending Clinician MARKO CORDOVA M.D. Attending Clinician Unavailable DENISSE Admitting Clinician Unavailable MARKO CORDOVA M.D., M Admitting Clinician Unavailable Payers Payer Name Policy Type Policy Effective Expiration Source Number Date Date MEDICAREMEDICARE PART A [id number] 2005 MD Hawley AND 00:00:00 [id number] 2004-Pr -[phone] , [place] [id number] 2018 MD Juan Antonio melendez [place]AD[place]AL[place] 00:00:00 TRADITIONAL STAR PLUS [id number] esentMedicaid MEDICAREMEDICARE A [id number] [address] [facility] [id number] 2004-Pr 00:00:00 - Medical [facility] [place] MEDICAIDMEDICAID [id number] [facility] [id number] 2016 00:00:00 - Medical [facility] MEDICAIDMEDICAID [id number] [facility] [id number] 2014-P 00:00:00 - [facility] [place] Problems Condition Condition Condition Status Onset Resolution Last Treating Co mments Source Name Details Category Date Date Treatment Clinician Date E-coli UTI E-coli UTI Disease Active [facility] Medical 00 Center Tobacco Tobacco Disease Active [facility] abuse abuse 5-28 [facility] - 00:[facility]: Medical 00 Center Witnessed Witnessed Disease Active [facility] seizure-li seizure-li 5-25 Keyla kes - ke ke 00:00: Medical activity activity 00 Center Anxiety Anxiety Disease Active [facility] and and 5-25 [facility] - depression depression 00:00: Me dical 00 Center Obesity Obesity Disease Active 2019- [facility] (BMI (BMI 5-25 [facility] - 30-39.9) 30-39.9) 00:00: Medica l 00 Center Hypertensi Hypertensi Disease Active 2018- M D on on 05-31 Anderso 00:00: n 00 Impaired Impaired Disease Active Overview: glucose glucose 05-30 Formattin Georges so tolerance tolerance 00:00: g of this n 00 note might be different from the original. Lab Results Component Value Date A1C 5.8 (H) 9 A1C 5.6 7 Osteoarthr Osteoarthr Disease Active Overview : MD jose r odell 05-29 2015:IMPR Anderso 00:00: ESSION:1. n 00 Small central disc herniatio n at L2-L3 with minimal indentati on of thethecal sac and mild narrowing of the spinal canal.2. Changes of degenerat rex disc disease and facet degenerat rex diseaseth roughout the lumbar spine as described above. Portal Portal Disease Active Overview: hypertensi hypertensi 7- Anderso on on 00:00: 9:Hepatos n 00 plenomega ly. There are findings suggestiv e of portal hypertens ion. 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 2-05 Dougals rso of central of [place] 00:00: n portion of portion of 00 left left female female breast breast Estrogen Estrogen Disease Active 2016-11 receptor receptor 2-05 Shahab o positive positive 00:00: n status status 00 (ER+) (ER+) Severe Severe Disease Active 2005-[address] [facility] bipolar I bipolar I 11-18 Luke s - disorder, disorder, 00:00: Medi shelley current or current or 00 Ce nter most most recent recent episode episode depressed depressed Adjustment Adjustment Disease Active 2005-[address] disorder disorder 11-18 [facility] - with with 00:00: Medical depressed depressed 00 Cent er mood mood History of History of Disease Active Overview : hepatitis hepatitis Per ID Douglas rso C C team: n "She denies blood transfusi on before 1991, but she recalled using dilaudid IV by herself and possible sharing needles." [facility] Dr. Manley in January 2019. 528 9 08:25HepC RNA PCR [facility] Undetecte d IU/mL (Undetec jassi) History of Past Illness Condition Condition Condition Status Onset Resolution Last Treating Co mments Source Name Details Category Date Date Treatment Clinician Date Leukocytos Leukocytos Disease Resolve 2020-04-08 2020-04-[address] [facility] [address] is is d 5-28 00:00:00 13:20:47 [facility] - 00:00: Medical 00 [place] Shortness Shortness Disease Resolve 2020-04-08 2020-04-[address] of breath of breath d 6-15 00:00:00 13:20:50 [facility] - 00:00: Medical 00 [place] Abnormal Abnormal Disease Resolve 2019-11-27 2019-11-27 findings findings d 05-31 00:00:00 23:25:42 An derso on on 00:00: n cytologica cytologica 00 l and l and histologic histologic al al examinatio examinatio n of urine n of urine Altered Altered Disease Resolve 2019-11-27 2019-11-27 mental mental d - 00:00:00 23:25:49 Shahab o status status 00:00: n 00 Delirium Delirium Disease Resolve 2019-11-27 2019-11-27 d 9-22 00:00:00 23:25:58 Shahab o 00:00: n 00 Malignant Malignant Disease Resolve 2019-11-27 2019-11-27 neoplasm neoplasm d 8-07 00:00:00 23:26:05 An derso related related 00:00: [...] n Ex-smoker Ex-smoker Disease Resolve 2019-11-27 2019-11-27 d 00:00:00 23:25:59 Shahab o n Oxygen Oxygen Disease Resolve 2019-11-23 2019-11-23 saturation saturation d 7-24 00:00:00 18:07:13 Anderso below below 00:00: n reference reference 00 range range Tachycardi Tachycardi Disease Resolve 2019-11-23 2019-11-23 a a d 7-22 00:00:00 18:07:21 Shahab o 00:00: n 00 [...] 2019-11-23 2019-11-23 Down from 2 ppd to Sg Chayo Hawley 00:00:00 00:00:00 5 cigarettes max [...] Name anastrozole 2019-11 Yes Mucinous TAKE 1 MD (ARIMIDEX) 2-07 carcinoma TABLET BY Anderso 1 mg tablet 00:00: of central MOUTH n 00 portion of EVERY DAY left female breast anastrozole 2019-11 2020- No Mucinous TAKE 1 (ARIMIDEX) 0-12 12-07 carcinoma TABLET BY Anderso 1 mg tablet 00:00: 00:00 of central MOUTH n 00 :00 portion of EVERY DAY left female breast FreeStyle FreeStyle 2020-0 Yes Lea as [facility] Roxy 14 Roxy 14 8-06 Millender directed [facility] - Sensor Day Sensor 00:00: M [facility] Metformin Metformin 2019-0 Yes Lea [address] [facility] HCl HCl 8-06 Millender with a [facility] - 00:00: meal [facility] FreeStyle FreeStyle 2020-0 Yes Lea as [facility] Roxy Roxy 8-06 Millender directed Luke [facility] - [place] 00:00: [facility] Levemir Levemir 2020-0 Yes Lea as [facility] FlexTouch FlexTouch 8-06 Millender directed [facility] - 00:00: [facility] Pen Dent Pen Dent 2020-0 Yes Lea as [facility] 8-06 Millender directed [facility] - 00:00: [facility] anastrozole 2020-0 2020- No Mucinous TAKE 1 (ARIMIDEX) 7-07 10-12 carcinoma TABLET BY Anderso 1 mg tablet 00:00: 00:00 of central MOUTH n 00 :00 portion of EVERY DAY left female breast acetaminoph 2020-0 Yes 1{tbl} Take 1 MD en-codeine 6-23 tablet by Douglas averyo (TYLENOL-CO 14:39: mouth 2 n DEINE #3) 39 (two) 300 mg-30 times a mg tablet day as needed for moderate pain. albuterol 2020-0 Yes 1{puff} Inhale 1-2 MD (VENTOLIN 6-23 puffs by Shahab o HFA,PROAIR 14:39: mouth n HFA) 90 39 every 4 mcg/puff (four) inhaler hours as needed for wheezing or shortness of breath. anastrozole 2020-0 Yes 1mg QD Take [address] (ARIMIDEX) 6-09 by mouth [facility] - 1 mg tablet 08:45: daily. Medi shelley 06 Center umeclidiniu 2019-0 Yes 1{puff} QD Inhale [address] [facility] [facility] m-vilantero 6-09 puff by [facility]ukes - L (ANORO 08:45: mouth via Medi shelley ELLIPTA) 06 inhaler Center 62.5-25 daily. mcg/actuati on DsDv acetaminoph 2019-0 Yes 1{tbl} Take [address] en-codeine 6-09 tablet by Jeet s - (TYLENOL 08:45: mouth Medical #3) 300-30 06 every 8 Center mg per (eight) tablet hours as needed (severe pain) . FLUoxetine 0 2020- No 20mg QD Take [address] [facility] (PROZAC) 20 04-15- by mouth Oj es - MG tablet 12:19: 00:00 daily. Medic al 24 :00 Center dextroamphe 0 2020- No dextroamph [facility] tamine-amph 04-15- etamine-am L ukes - etamine 12:10: 00:00 phetamine Medi shelley (ADDERALL) 22 :00 20 mg Center 20 mg Tab tablet tablet HYDROcodone 2019-0 2020- No Take by [facility] -acetaminop 04-15- mouth. [facility]ukes - hen 12:10: 00:00 Medical (VICODIN) 22 :00 Center 5-300 mg Tab QUEtiapine 2019-0 Yes 200mg Q.5D Take 4 [...] daily with breakfast and dinner. albuterol 2020- No 2{puff} Inhale [address] HFA 04-15 06-08 puffs by [facility]ukes - (VENTOLIN 00:00: 23:59 mouth via Me dical HFA) 90 00 :00 inhaler Center mcg/actuati every 6 on inhaler (six) hours as needed for Wheezing. lithium 150 2019- No 450mg Take [address] MG capsule 04-15 06-08 capsules Luke s - 00:00: 00:00 (450 mg Medical 00 :00 total) by Center mouth 2 (two) times daily with breakfast and dinner. QUEtiapine 2019- No 150mg Q.5D Take [address] (SEROQUEL) 6- 06-08 tablets [facility]ukes - 50 MG 00:00: 00:00 (150 mg Medical tablet 00 :00 total) by Center mouth 2 (two) times daily. clonazePAM 2019- No 2mg Take [address] (KLONOPIN) 04-13-06 by mouth 2 Keyla kes - 2 MG tablet 13:29: 00:00 (two) Medi shelley 35 :00 times Center daily as needed for Anxiety. QUEtiapine 2019- No 100mg QD Take [address] (SEROQUEL) 04-13 06-06 mg by [facility]ukes - 100 MG 13:28: 00:00 mouth Medical tablet 37 :00 nightly. Center FLUoxetine 2019- No 10mg QD Take [address] (PROZAC) 10 04-13 06-08 tablet (10 L ukes - MG tablet 00:00: 00:00 mg total) Me dical 00 :00 by mouth Center daily. lithium 150 2019- No 300mg Take [address] MG capsule 5-25 05-25 mg by [facility]ukes - 05:02: 00:00 mouth. Medical 54 :00 Center topiramate 2019- No 50mg Q.5D Take [address] [facility] (TOPAMAX) 5-25 05-25 by mouth 2 Oj es - 50 MG 05:02: 00:00 (two) Medical tablet 53 :00 times Center daily. pregabalin 2019-0 2020- No 50mg [id number] Take [address] [facility] (LYRICA) 50 5-01 04-25 [id number] by mouth 3 [facility] - MG capsule 05:02: 00:00 3D (three) Med ical 47 :00 times Center daily. dextroamphe 2019-0 2020- No 10mg Take [address] tamine-amph -01 04-25 by mouth. Keyla kes - etamine 5 05:01: 00:00 Medical mg Tab 55 :00 Center FLUOXETINE, 2020- No 40mg [address] BULK, MISC 04-0125 Miscellane Keyla kes - 05:01: 00:[address] Medical 52 :00 . Center dextroamphe 2019-0 2020- No 20mg Take 20 [...] 2020- No quetiapine [facility] (SEROQUEL) 1-15 -07 300 mg [facility]ukes - 300 MG 00:00: 00:00 tablet Medical tablet 00 :00 [place] anastrozole 2019- No Mucinous 1mg Take 1 [...] 00:00 300 mg Medical 00 :00 capsule [place] Paxil Paxil Yes Lea [address] [facility] [address] Millender in the [facility]ukes - morning [facility] Adderall Adderall Yes Lea [address] Millender [facility] Risperdal Risperdal Yes Lea [address] [facility] Millender [facility] Zuehl Zuehl Yes Lea (450 mg) [address] Carbonate Carbonate Millender capsule [facility] Quetiapine Quetiapine Yes Lea [address] [facility] Fumarate Fumarate Millender at bedtime [facility] Klonopin Klonopin Yes Lea [address] Millender [facility] Vital Signs Vital Name Observation Time Observation Value Comments Source Systolic blood 2020-04-16 06:55:00 115 mm[Hg] [facility] Diastolic blood 2020-04-16 06:55:00 75 mm[Hg] [facility] Heart rate 2020-04-16 06:55:00 104 /min [facility] Body temperature 2020-04-16 06:55:00 36.39 Mansi [facility] Respiratory rate 2020-04-16 06:55:00 16 /min [facility] Oxygen saturation in 2020-04-16 06:55:00 93 /min [facility] Arterial blood by Medical Ce ntjaguar Pulse oximetry Body weight 2020-04-04 10:17:00 91.899 kg [facility] BMI 2020-04-04 10:17:00 35.45 kg/m2 [facility] Body height 2020-04-01 13:00:00 161 cm [facility] Heart rate 2019-11-23 17:10:00 93 /min MD Georges jarrett Body temperature 2019-11-23 17:10:00 36.72 Mansi MD Hernan duncan Respiratory rate 2019-11-23 17:10:00 18 /min MD Hernan duncan Body weight 2019-11-23 17:10:00 92.8 kg MD Georges jarrett BMI 2019-11-23 17:10:00 35.80 kg/m2 MD Georges jarrett Procedures Procedure Date / Time Performing Clinician Source Performed RHYTHM STRIP - SCAN 2020-04-17 15:11:17 Provider, Roshni [facility] POCT-GLUCOSE METER 2020-04-15 22:05:00 Arturo Downs [facility] POCT-GLUCOSE METER 2020-04-15 12:44:00 Yareli Arturo [facility] POCT-GLUCOSE METER 2020-04-15 08:15:00 Yareli Arturo [facility] POCT-GLUCOSE METER 2020-04-14 21:19:00 Samantha Lanier [facility] POCT-GLUCOSE METER 2020-04-13 17:03:00 Lanier, Samantha Haskins [facility] POCT-GLUCOSE METER 2020-04-13 11:55:00 [facility]SE METER 2020-04-13 08:22:00 Lanier, Samantha Carranzan [facility] POCT-GLUCOSE METER 2020-04-12 20:48:00 Lanier, Samantha Carranzan [facility] POCT-GLUCOSE METER 2020-04-12 17:18:00 Lanier, [facility] POCT-GLUCOSE METER 2020-04-12 12:10:00 Lanier, [facility] POCT-GLUCOSE METER 2020-04-12 08:32:00 Lanier, Samantha Carranzan [facility] LITHIUM LEVEL 2020-04-12 04:26:00 Jairo Mata [facility] POCT-GLUCOSE METER 2020-04-11 21:49:00 Lanier, [facility] POCT-GLUCOSE METER 2020-04-11 16:42:00 Lanier, [facility] POCT-GLUCOSE METER 2020-04-11 10:52:00 Lanier, [facility] POCT-GLUCOSE METER 2020-04-11 06:55:00 Lanier, Samantha Carranzan [facility] POCT-GLUCOSE METER 2020-04-10 20:46:00 Lanier, Samantha Carranzan [facility] POCT-GLUCOSE METER 2020-04-10 17:42:00 Lanier, Samantha Carranzan [facility] POCT-GLUCOSE METER 2020-04-10 11:07:00 Lanier, [facility] POCT-GLUCOSE METER 2020-04-10 07:12:00 Lanier, [facility] BASIC METABOLIC PANEL (7) 2020-04-10 03:58:00 Lanier, [facility] CBC W/PLT COUNT & AUTO 2020-04-10 03:58:00 Lanier, Samantha Haskins [facility] POCT-GLUCOSE METER 2020-04-09 21:30:00 Lanier, [facility] POCT-GLUCOSE METER 2020-04-09 17:05:00 Lanier, [facility] POCT-GLUCOSE METER 2020-04-09 07:13:00 Lanier, [facility] LITHIUM LEVEL 2020-04-09 04:06:00 [facility] POCT-GLUCOSE METER 2020-04-08 21:22:00 Lanier, Samantha [facility] POCT-GLUCOSE METER 2020-04-08 18:08:00 Lanier, Samantha [facility] POCT-GLUCOSE METER 2020-04-08 12:36:00 Lanier, [facility] COMPREHENSIVE METABOLIC 2020-04-08 03:42:00 [facility] CBC W/PLT COUNT & AUTO 2020-04-08 03:42:00 [facility] POCT-GLUCOSE METER 2020-04-07 21:08:00 [facility] POCT-GLUCOSE METER 2020-04-07 17:20:[facility] 2020-04-07 12:02:00 [facility] POCT-GLUCOSE METER 2020-04-07 07:55:00 [facility] COMPREHENSIVE METABOLIC 2020-04-07 04:24:00 [facility] CBC W/PLT COUNT & AUTO 2020-04-07 04:24:00 [facility] POCT-GLUCOSE METER 2020-04-06 21:01:[address] [facility] [address] CHEST PE TEST DESIGN 2020-04-06 16:30:00 [facility] APTT 2020-04-06 13:47:00 [facility] POCT-GLUCOSE METER 2020-04-06 11:56:00 [facility] RESPIRATORY PANEL [facility] 2020-04-06 09:15:00 [facility] POCT-GLUCOSE METER 2020-04-06 07:41:00 [facility] COMPREHENSIVE METABOLIC 2020-04-06 03:34:00 [facility] APTT 2020-04-06 03:34:00 [facility] CBC W/PLT COUNT & AUTO 2020-04-06 03:34:00 [facility] POCT-GLUCOSE METER 2020-04-05 23:20:00 [facility] URINE CULTURE 2020-04-05 19:02:[address] [facility] URINALYSIS W/ REFLEX URINE 2020-04-05 19:02:00 [facility] D-DIMER 2020-04-05 18:48:[address] [facility] BASIC METABOLIC PANEL (7) 2020-04-05 18:48:00 [facility] MAGNESIUM 2020-04-05 18:48:[address] [facility] PHOSPHORUS 2020-04-05 18:48:[address] [facility] CBC W/PLT COUNT & AUTO 2020-04-05 18:48:00 [facility] SARS-COV2/RT-PCR ([facility] & 2020-04-05 17:02:00 Melody Burton [facility] - REF LABS) [facility] POCT-GLUCOSE METER 2020-04-05 16:51:00 Micheal [facility] XR CHEST 1 VIEW 2020-04-05 16:46:00 Micheal [facility] - PORTABLE/BEDSIDE [facility] LACTIC ACID, VENOUS 2020-04-05 16:24:00 Micheal [facility] ECG 12-LEAD 2020-04-05 16:08:18 [facility] 12-LEAD 2020-04-05 13:27:01 [facility] POCT-GLUCOSE METER 2020-04-05 11:22:00 [facility] POCT-GLUCOSE METER 2020-04-05 08:11:00 [facility] POCT-GLUCOSE METER 2020-04-04 20:58:00 [facility] POCT-GLUCOSE METER 2020-04-04 17:52:00 [facility] HEPATIC FUNCTION PANEL 2020-04-04 15:21:00 [facility] CBC W/PLT COUNT & AUTO 2020-04-04 15:20:00 [facility] DIFFERENTIAL [facility] REPORT OF PROCEDURE - 2020-04-04 13:41:29 Provider, [facility] ENDOSCOPY SCAN Scanning [facility] POCT-GLUCOSE METER 2020-04-04 11:41:00 [facility] POCT-GLUCOSE METER 2020-04-04 08:55:00 [facility] BASIC METABOLIC PANEL (7) 2020-04-04 05:30:00 Chantell Larson [facility] MAGNESIUM 2020-04-04 05:30:[address] [facility] PHOSPHORUS 2020-04-04 05:30:[address] [facility] CBC W/PLT COUNT & AUTO 2020-04-04 05:30:00 Kirit De La Cruz [facility] POCT-GLUCOSE METER 2020-04-03 21:53:00 [facility] POCT-GLUCOSE METER 2020-04-03 17:49:00 [facility] POCT-GLUCOSE METER 2020-04-03 11:26:00 [facility] POCT-GLUCOSE METER 2020-04-03 07:24:00 [facility] US ABDOMEN LIMITED 2020-04-03 05:45:00 [facility] HEPATIC FUNCTION PANEL 2020-04-03 03:34:00 [facility] BASIC METABOLIC PANEL (7) 2020-04-03 03:34:00 Chantell Larson [facility] MAGNESIUM 2020-04-03 03:34:[address] [facility] PHOSPHORUS 2020-04-03 03:34:[address] [facility] HEMOGLOBIN A1C 2020-04-03 03:34:[address] [facility] CBC W/PLT COUNT & AUTO 2020-04-03 03:34:00 Kirit De La Cruz [facility] POCT-GLUCOSE METER 2020-04-02 21:09:00 [facility] MR BRAIN WITHOUT IV 2020-04-02 20:22:00 Lorene Mcclure [facility] POCT-GLUCOSE METER 2020-04-02 17:17:00 [facility] RAPID DRUG SCREEN, URINE 2020-04-02 13:14:00 Lorene Mcclure [facility] DRUG SCREEN, URINE, 2020-04-02 13:12:00 Lorene Mcclure [facility] AMMONIA 2020-04-02 12:22:00 Denisse [facility] BLOOD CULTURE 2020-04-02 12:08:00 Denisse [facility] POCT-GLUCOSE METER 2020-04-02 11:00:00 Micheal [facility] POCT-GLUCOSE METER 2020-04-02 08:33:00 [facility]-26 HR CONTINUOUS 2020-04-02 06:32:00 Glendy Clayton [facility] - MONITORING WITH VIDEO Medical Ce nter BASIC METABOLIC PANEL (7) 2020-04-02 04:43:00 Chantell Larson [facility] CBC W/PLT COUNT & AUTO 2020-04-02 04:43:00 Denisse [facility] POCT-GLUCOSE METER 2020-04-02 01:53:00 Denisse [facility] POCT-GLUCOSE METER 2020-04-01 20:44:00 Denisse [facility] HEPATIC FUNCTION PANEL 2020-04-01 18:46:00 Denisse [facility] POCT-GLUCOSE METER 2020-04-01 17:57:00 Denisse [facility] TSH/FREE T4 IF INDICATED 2020-04-01 14:13:00 Denisse [facility] VITAMIN B12 AND FOLATE 2020-04-01 14:13:00 Denisse [facility] LITHIUM LEVEL 2020-04-01 14:13:00 Denisse [facility] T4, FREE 2020-04-01 14:13:00 Denisse [facility] BLOOD CULTURE 2020-04-01 14:11:00 Denisse [facility] POCT-GLUCOSE METER 2020-04-01 12:22:00 Kirit De La Cruz [facility] ECG 12-LEAD 2020-04-01 08:31:07 Unknown, Hl7 Doctor [facility] SARS-COV2/RT-PCR ([facility] & 2020-04-01 05:24:00 Forrest, [facility] REF LABS) [facility] BASIC METABOLIC PANEL (7) 2020-04-01 05:08:00 Forrest, [facility] MAGNESIUM 2020-04-01 05:08:00 Forrest, [facility] CREATINE KINASE (CK) 2020-04-01 05:08:00 Forrest, [facility] PHOSPHORUS 2020-04-01 05:08:00 Forrest, [facility] PT/APTT 2020-04-01 05:08:00 Forrest, [facility] TROPONIN I 2020-04-01 05:08:00 Chantell Larson [facility] CBC W/PLT COUNT & AUTO 2020-04-01 05:08:00 Forrest, [facility] DIFFERENTIAL [facility] URINALYSIS W/ REFLEX URINE 2020-04-01 05:04:00 Forrest, [facility] C [facility] CULTURE [facility] XR CHEST 1 VIEW 2020-04-01 04:58:00 Forrest, [facility] PORTABLE/BEDSIDE Medical Center CRITICAL CARE 2020-04-01 04:51:54 Forrest, [facility] ED ECG INTERPRETATION 2020-04-01 04:51:54 [facility], [facility] Plan of Care Planned Activity Planned Date Details Comments Source Future Scheduled 2020-07-09 INFLUENZA VACCINE (#1) [facility] Test 00:00:00 [code = INFLUENZA Medical Ce nter VACCINE (#1)] Future Scheduled 2020-04-[address] [facility] - Test 00:00[facility] breast (procedure) [code = 577512066] Future Scheduled [address] [facility] - Test 00:00:00 (procedure) [code = Medical [facility] [id number]] Future Scheduled 2006-10-[address] [facility] - Test 00:00:00 WELLNESS (YEAR 2 or [facility] FIRST YEAR if no IPPE) [code = MEDICARE ANNUAL WELLNESS (YEAR 2 or FIRST YEAR if no IPPE)] Future Scheduled [address] [facility] cervix (procedure) [code = 181879377] Future Scheduled [address] [facility] - Test 00:00:00 0-64 YRS (1 of 1 - Medical C enter PPSV23) [code = PNEUMOCOCCAL VACCINE 0-64 YRS (1 of 1 - PPSV23)] Future Scheduled [address] [facility] 00:00[facility]00 [facility] colon (procedure) [code = 821968783] Encounters Start End Encounter Admission Attending Care Care Encounter Source Date/Time Date/Time Type Type Clinicians Facility Department ID 2020-08-20 2020-08-20 Outpatient [facility] [id number] [facility] 2020-08-18 2020-08-18 Outpatient [facility] [id number] [facility] 2020-08-16 2020-08-16 Out[facility] [id number] [facility] 2020-08-07 2020-08-07 Outpatient [facility] [id number] [facility] 2020-07-09 2020-07-09 Outpatient [facility] [id number] [facility] 2020-06-13 2020-06-13 [facility] [id number]00 11:00:00 [facility] Family Medicine Medicine Outpati ent Clinics 2020-05-24 2020-05-24 Outpatient AWILDA VERNON MDA MDA [id number] MD 00:00:00 00:00:00 NEDA melendez 2020-05-23 2020-05-23 Outpatient AWILDA VERNON MDA MDA [id number] 00:00:00 00:00:00 NEDA Su so n 2020-05-13 2020-05-13 Outpatient AWILDA SULLIVAN MDA MDA [id number] 00:00:00 00:00:00 FAUSTINO melendez 2020-05-07 2020-05-07 Outpatient AWILDA VERNON MDA MDA [id number] 00:00:00 00:00:00 NEDA Su so n 2020-05-07 2020-05-07 Outpatient AWILDA VERNON MDA MDA [id number] 00:00:00 00:00:00 NEDA Su jeancarlos n 2020-04-30 2020-04-30 Outpatient AWILDA POLANCO MDA MDA [id number] 09:15:00 23:59:00 LAMBERTO Georges jeancarlos n 2019-10-18 2019-10-18 [facility] [id number] 08[facility]20[facility]00 08:20[facility]00 [facility] 2019-10-10 2019-10-10 [facility] [id number] 16:00:00 16:00:00 [facility] Results Test Description Test Time Test Comments Results Result Comments Source POC-Glucose meter 2020-04-15 22:17:00 Test Item Value Reference Range Interpretation Comme nts POC-Glucose Meter (test code = 124 mg/dL 70-110 H : TESTED AT [facility] [address] [place] [address]) [facility], 770 30: Database Software Technician/Techni janel ID = [id number] for RAY ERVIN Lab Interpretation (test code = Abnormal 24900-7) [facility] [id number] 22:17:00 Test Item Value Reference Range Interpretation Comments POC-GLUCOSE METER 124 mg/dL 70-110 H : TESTED A T [facility] [address] (BEAKER) (test code = [place] [facility], 1538) 42237: Database Software Technician/Techni janel ID = [id number] for RAY MCCLELLAN POCT-GLUCOSE [id number] 12:55:00 Test Item Value Reference Range Interpretation Comments POC-GLUCOSE METER 189 mg/dL 70-110 H : TESTED A T [facility] [address] ([facility]) (test code = [facility], 153) 76452: Database Software Technician/Techni janel ID = [id number] for SERGIO BETH, SHELLE POCT-GLUCOSE [id number] 08:26:00 Test Item Value Reference Range Interpretation Comments POC-GLUCOSE METER 123 mg/dL 70-110 H : TESTED A T [facility] 67[address] ([facility]) (test code = [facility], 153) 77586: Database Software Technician/Techni janel ID = [id number] for JOE BINGHAM POCT-GLUCOSE [id number] 21:31:00 Test Item Value Reference Range Interpretation Comments POC-GLUCOSE METER 176 mg/dL 70-110 H : Notified RN/MD: ([facility]) (test code = TESTED AT [facility] 67[address] 1538) [facility], [address]: Database Software Technician/Techni janel ID = [id number] for LATRICHARDRIDSARAHI, ZAYDA ICE Zuehl [id number] 11:45:00 Test Item Value Reference Range Interpretation Comments Zuehl Level (test code = 0.6 mmol/L 0.8-1.2 L 80987-4) Lab Interpretation (test code = Abnormal 45568-4) [facility] [id number] 11:45:00 Test Item Value Reference Range Interpretation Comments LITHIUM LEVEL (BEAKER) (test code 0.6 mmol/L 0.8-1.2 L = 630) POCT-GLUCOSE [id number] 17:15:00 Test Item Value Reference Range Interpretation Comments POC-GLUCOSE METER 128 mg/dL 70-110 H : [facility] T [facility] 6720 [facility] (test code = [facility], 153) 27748: Database Software Technician/Techni janel ID = [id number] for SERGIO BETH, CARLTONLAE POCT-GLUCOSE [id number] 12:20:00 Test Item Value Reference Range Interpretation Comments POC-GLUCOSE METER 108 mg/dL 70-110 : TESTED A T [facility] 6720 ([facility]) (test code = [facility], 153) 71701: Database Software Technician/Techni janel ID = [id number] for Sm ith, Elaina POCT-GLUCOSE [id number] 08:34:00 Test Item Value Reference Range Interpretation Comments POC-GLUCOSE METER 115 mg/dL 70-110 H : TESTED A T [facility] [address]20 (BEAKER) (test code = [facility], 1538) 42660: Database Software Technician/Techni janel ID = [id number] for Sm ith, Elaina POCT-GLUCOSE [id number] 20:59:00 Test Item Value Reference Range Interpretation Comments POC-GLUCOSE METER 152 mg/dL 70-110 H : TESTED A T [facility] 6720 ([facility]) (test code = [facility], 1538) 27330: Database Software Technician/Techni janel ID = [id number] for BA ISH, EMBER POCT-GLUCOSE [id number] 17:29:00 Test Item Value Reference Range Interpretation Comments POC-GLUCOSE METER 103 mg/dL 70-110 : TESTED A T [facility] 6720 ([facility]) (test code [facility], = 1538) 29308: Database Software Technician/Techni janel ID = [id number] for TSEG GAI, TSIGHEREDA POCT-GLUCOSE [id number] 12:22:00 Test Item Value Reference Range Interpretation Comments POC-GLUCOSE METER 204 mg/dL 70-110 H : Notified RN/MD: [facility] (test code AT [facility] [address] [facility] = 1538) [facility], 770 30: Database Software Technician/Techni janel ID = [id number] for TSEG GAI, TSIGHEREDA POCT-GLUCOSE [id number] 08:43:00 Test Item Value Reference Range Interpretation Comments POC-GLUCOSE METER 132 mg/dL 70-110 H : TESTED A T [facility] 6720 (BEAKER) (test code [facility], = 1538) 29940: Database Software Technician/Techni janel ID = [id number] for TSEG GAI, TSIGHEREDA POCT-GLUCOSE [id number] 07:13:00 Test Item Value Reference Range Interpretation Comments POC-GLUCOSE METER 200 mg/dL 70-110 H : TESTED A T [facility] 6720 ([facility]) (test code = [facility], 1538) 92351: Database Software Technician/Techni janel ID = [id number] for OC FELICIA, KULDIP POCT-GLUCOSE [id number] 16:54:00 Test Item Value Reference Range Interpretation Comments POC-GLUCOSE METER 103 mg/dL 70-110 : TESTED A T [facility] 6720 (BEAKER) (test code = [facility], 1538) 56082: Database Software Technician/Techni janel ID = [id number] for HU NT, KATIE POCT-GLUCOSE [id number] 11:03:00 Test Item Value Reference Range Interpretation Comments POC-GLUCOSE METER 155 mg/dL 70-110 H : TESTED A T [facility] 6720 (BEAKER) (test code = [facility], 1538) 75049: Database Software Technician/Techni janel ID = [id number] for HU NT, KATIE POCT-GLUCOSE [id number] 07:06:00 Test Item Value Reference Range Interpretation Comments POC-GLUCOSE METER 129 mg/dL 70-110 H : TESTED A T [facility] 6720 (BEAKER) (test code = [facility], [facility]8) 53275: Database Software Technician/Techni janel ID = [id number] for HU NT, KATIE POCT-GLUCOSE [id number] 20:59:00 Test Item Value Reference Range Interpretation Comments POC-GLUCOSE METER 167 mg/dL 70-110 H : TESTED A T [facility] 6720 (BEAKER) (test code = [facility], 1538) 24894: Database Software Technician/Techni janel ID = [id number] for KE BE, SAUDATU POCT-GLUCOSE [id number] 17:53:00 Test Item Value Reference Range Interpretation Comments POC-GLUCOSE METER 185 mg/dL 70-110 H : TESTED A T [facility] 6720 (BEAKER) (test code = [facility], 1538) 37764: Database Software Technician/Techni janel ID = [id number] for Ma thew, Remyia POCT-GLUCOSE [id number] 11:18:00 Test Item Value Reference Range Interpretation Comments POC-GLUCOSE METER 145 mg/dL 70-110 H : TESTED A T [facility] 6720 (BEAKER) (test code = [facility], 1538) 75273: Database Software Technician/Techni janel ID = [id number] for Ma thew, Remyia POCT-GLUCOSE [id number] 07:23:00 Test Item Value Reference Range Interpretation Comments POC-GLUCOSE METER 105 mg/dL 70-110 : TESTED A T [facility] 67[address] (BEAKER) (test code = [place], 1538) [address]: Database Software Technician/Techni janel ID = [id number] for Ingris Barcenasyia Basic Metabolic [id number] 04:32:00 Test Item Value Reference Range Interpretation Comments Sodium (test code = 143 meq/L 655-786 6021-2) Potassium (test code = 4.0 meq/L 3.5-5.1 2823-3) Chloride (test code = 111 meq/L 98-107 H 2075-0) CO2 (test code = 25 meq/L 22-29 8-9) BUN (test code = 11 mg/dL 7-21 3094-0) Creatinine (test code 0.76 mg/dL 0.57-1.25 = 2160-0) Glucose (test code = 106 mg/dL 70-105 H 2345-7) Calcium (test code = 9.6 mg/dL 8.4-10.2 24450-7) EGFR (test code = 79 mL/min/1.73 [place] [address]-8) NOT ACCURATE CREATININE CLEARANCE IN PREDICTING GLOMERULAR FILTRATION RATE . ESTIMATED GFR I S NOT APPLICABLE FOR DIALYSIS PATIENTS. VIKKI (test code = VIKKI) Database Software Technician ID - ZAHRA M Lab Interpretation Abnormal (test code = 71949-2) [facility]OLIC [id number] 04:32:00 Test Item Value Reference Range Interpretation [...] S NOT APPLICABLE FOR DIALYSIS PATIEN TS. Database Software Technician ID - ZAHRA MCBC with platelet count + automated [id number] 04:10:00 Test Item Value Reference Range Interpretation [...] K/CU MM L MPV (test code = 89060-4) 12.3 fL 9.4-12.3 nRBC (test code = [...] Granulocytes-Relative 0 % 0-1 (test code = 9611) Lab Interpretation (test code = Abnormal 52220-4) [facility] W/PLT COUNT & AUTO [id number] 04:10:00 Test Item Value Reference Range Interpretation [...] PERCENT (BEAKER) (test code = 2801) POCT-GLUCOSE [id number] 21:41:00 Test Item Value Reference Range Interpretation Comments POC-GLUCOSE METER 130 mg/dL 70-110 H : TESTED A T [facility] 6720 (BEAKER) (test code = [facility], 153) 17490: Database Software Technician/Techni janel ID = [id number] for SA NTOS, UYEN POCT-GLUCOSE [id number] 17:17:00 Test Item Value Reference Range Interpretation Comments POC-GLUCOSE METER 107 mg/dL 70-110 : [facility] T [facility] 6720 [facility] (test code = [facility], [facility]8) 06515: Database Software Technician/Techni janel ID = [id number] for CA STRO, JONAH LITHIUM [id number] 13:12:00 Test Item Value Reference Range Interpretation Comments LITHIUM LEVEL (BEAKER) (test code 0.5 mmol/L 0.8-1.2 L = 630) POCT-GLUCOSE [id number] 07:24:00 Test Item Value Reference Range Interpretation Comments POC-GLUCOSE METER 124 mg/dL 70-110 H : [facility] T [facility] 6720 ([facility] (test code = [facility], 153) 60893: Database Software Technician/Techni janel ID = [id number] for CA STRO, JONAH POCT-GLUCOSE [id number] 21:34:00 Test Item Value Reference Range Interpretation Comments POC-GLUCOSE METER 174 mg/dL 70-110 H : TESTED A T [facility] 6720 ([facility] (test code = [facility], 1538) 58572: Database Software Technician/Techni janel ID = [id number] for DE NNIS, BING POCT-GLUCOSE [id number] 18:20:00 Test Item Value Reference Range Interpretation Comments POC-GLUCOSE METER 125 mg/dL 70-110 H : TESTED A T [facility] 6720 ([facility] (test code = [facility], 1538) 03148: Database Software Technician/Techni janel ID = [id number] for LUCAS LOWE POCT-GLUCOSE [id number] 12:47:00 Test Item Value Reference Range Interpretation Comments POC-GLUCOSE METER 100 mg/dL 70-110 : TESTED [facility] [facility] 67[address] (ANNIEAKER) (test code = [place], 1538) [address]: Database Software Technician/Techni janel ID = [id number] for LUCAS LOWE Comprehensive metabolic [id number] 04:30:00 Test Item Value Reference Range Interpretation Comments Protein, Total (test 7.5 6.0- 8.3 gm/dL code = 2885-2) Albumin (test code = 3.7 g/dL 3.5-5 65189-0) Alkaline Phosphatase 94 U/L 40-150 (test code = 6768-6) Total Bilirubin (test 0.9 mg/dL 0.2-1.2 code = 1975-2) Sodium (test code = 141 meq/L 964-333 7241-2) Potassium (test code = 4.0 meq/L 3.5-5.1 2823-3) Chloride (test code = 110 meq/L 98-107 H 2075-0) CO2 (test code = 23 meq/L 22-29 2028-9) BUN (test code = 10 mg/dL 7-21 3094-0) Creatinine (test code 0.72 mg/dL 0.57-1.25 = 2160-0) Glucose (test code = 123 mg/dL 70-105 H 2345-7) Calcium (test code = 9.6 mg/dL 8.4-10.2 15726-2) AST (test code = 28 U/L 5-34 1920-8) ALT (test code = 39 U/L 6-55 1742-6) EGFR (test code = 84 mL/min/1.73 [place] [address]-5) NOT ACCURATE CREATININE CLEARANCE IN PREDICTING GLOMERULAR FILTRATION RATE . ESTIMATED GFR I S NOT APPLICABLE FOR DIALYSIS PATIENTS. VIKKI (test code = VIKKI) Database Software Technician ID - PIAYA L Lab Interpretation Abnormal (test code = 67442-5) [facility] CenterCOMPREHENSIVE METABOLIC [id number] 04:30:00 Test Item Value Reference Range Interpretation [...] S NOT APPLICABLE FOR DIALYSIS PATIEN TS. Database Software Technician ID - PIAYA LCBC W/PLT COUNT & AUTO [id number] 03:57:00 Test Item Value Reference Range Interpretation [...] PERCENT (BEAKER) (test code = 2801) POCT-GLUCOSE [id number] 21:19:00 Test Item Value Reference Range Interpretation Comments POC-GLUCOSE METER 111 mg/dL 70-110 H : TESTED [facility] 67[address] (BEAKER) (test code = [place], 1538) 90950: Database Software Technician/Techni janel ID = [id number] for Neda Pineda POCT-GLUCOSE [id number] 17:31:00 Test Item Value Reference Range Interpretation Comments POC-GLUCOSE METER 106 mg/dL 70-110 : TESTED A T [facility] 6720 (BEAKER) (test code = [facility], 1538) 19384: Database Software Technician/Techni janel ID = [id number] for Caleb Barcenas Blood [id number] 14:00:00 Test Item Value Reference Range Interpretation Comments Result (test code = No growth in 5 days 6463-4) [facility] CenterBLOOD [id number] 14:00:00 Test Item Value Reference Range Interpretation Comments CULTURE (BEAKER) (test No growth in 5 days code = 1095) POCT-GLUCOSE [id number] 12:14:00 Test Item Value Reference Range Interpretation Comments POC-GLUCOSE METER 113 mg/dL 70-110 H : TESTED A T [facility] 6720 (BEAKER) (test code = [facility], 1538) 81319: Database Software Technician/Techni janel ID = [id number] for Caleb Barcenas POCT-GLUCOSE [id number] 08:06:00 Test Item Value Reference Range Interpretation Comments POC-GLUCOSE METER 133 mg/dL 70-110 H : TESTED A T [facility] 6720 (BEAKER) (test code = [facility], 1538) 70162: Database Software Technician/Techni janel ID = [id number] for Caleb Barcenas COMPREHENSIVE METABOLIC [id number] 05:57:00 Test Item Value Reference Range Interpretation [...] S NOT APPLICABLE FOR DIALYSIS PATIEN TS. Database Software Technician ID - PIAYA LCBC W/PLT COUNT & AUTO [id number] 05:15:00 Test Item Value Reference Range Interpretation [...] PERCENT (BEAKER) (test code = 2801) POCT-GLUCOSE [id number] 21:12:00 Test Item Value Reference Range Interpretation Comments POC-GLUCOSE METER 197 mg/dL 70-110 H : TESTED A T [facility] 6720 (BEAKER) (test code = [place], 1538) [address]87[address]: Database Software Technician/Techni janel ID = [id number] for SUMMER OSWALD BLOOD [id number] 20:00:00 Test Item Value Reference Range Interpretation Comments CULTURE (BEAKER) (test No growth in 5 days code = 1095) Respiratory Panel [id number] 19:01:00 Test Item Value Reference Range Interpretation Comments Human Metapneumovirus Not detected Not detected, (test code = 30549-8) Equivocal Rhinovirus (test code = Not detected Not detected, 75535-8) Equivocal INFLUENZA A (NO Not detected Not detected, SUBTYPE) (test code = Equivocal 56618-8) Influenza A subtype H1 (test code = 23729-4) Influenza A Subtype H3 (test code = 92152-2) Influenza A Subtype H1-2009 (test code = 48033-8) Influenza B (test code Not detected Not detected, = 73693-7) Equivocal Respiratory Syncytial Not detected Not detected, Virus (test code = Equivocal 71122-5) Parainfluenza Virus 1 Not detected Not detected, (test code = 32316-0) Equivocal Parainfluenza Virus 2 Not detected Not detected, (test code = 12663-0) Equivocal Parainfluenza virus 3 Not detected Not detected, (test code = 77286-6) Equivocal Parainfluenza Virus 4 Not detected Not detected, (test code = 94978-2) Equivocal Adenovirus (test code = Not detected Not detected, 96799-8) Equivocal Coronavirus 229E (test Not detected Not detected, code = 43468-8) Equivocal Coronavirus HKU1 (test Not detected Not detected, code = 67479-1) Equivocal Coronavirus NL63 (test Not detected Not detected, code = 25454-1) Equivocal Coronavirus OC43 (test Not detected Not detected, code = 36615-1) Equivocal Bordetella Pertussis Not detected Not detected, (test code = 81595-7) Equivocal Chlamydophila Not detected Not detected, Pneumoniae (test code = Equivocal 94932-9) Mycoplasma Pneumoniae Not detected Not detected, (test code = 66693-8) Equivocal VIKKI (test code = VIKKI) Other viruses and bacteria not targeted by this PCR panel cannot be excluded; therefore clinical correlation and follow up of serology, culture results, and other molecular studies is required. The results are not intended to be used as the sole means for clinical diagnosis or patient management decisions. This sample was tested at the [facility] Molecular Diagnostics Laboratory using the [employer] Respiratory Panel. It is FDA cleared and has been verified and approved by the [facility] Molecular Diagnostics Laboratory for clinical use on nasopharyngeal swab specimens. The performance of the FilmArray RP has not been established in individuals who received influenza vaccine. Recent administration of a nasal influenza vaccine may cause false positive results for Influenza A and/orInfluenza B. [facility] [id number] 19:01:00 Test Item Value Reference Range Interpretation [...] decisions. This sample was tested at the [facility] Molecular Diagnostics Laboratory using the [employer] Respiratory Panel. It is FDA cleared and has been verified and approved by the [facility] Molecular Diagnostics Laboratory for clinical use [...] may represent compression fractures, age indeterminate. Signed: Loernzo Cook MDReport Verified Date/Time: 04/06/2020 16:45:26 Reading Location: [address] Transitional Reading Room CT chest for [...] MDReport Verified Date/Time: 04/06/2020 16:45:26 Reading Location: [address] Transitional [facility] 14:25[facility]00 Test Item Value Reference Range Interpretation Comments PTT (test code = 31.0 22.5- 36.0 seconds 06267-6) VIKKI (test code = VIKKI) 6 hours after starting heparin infusion and as indicated per sliding scale Lab Interpretation (test Normal code = 29197-5) [facility] CenterAPTT[facility] 14:25:00 Test Item Value Reference Range Interpretation Comments PARTIAL THROMBOPLASTIN TIME 31.0 seconds 22.5-36.0 (BEAKER) (test code = 760) 6 hours after starting heparin infusion and as indicated per sliding scalePOCT- GLUCOSE [id number] 12:08:00 Test Item Value Reference Range Interpretation Comments POC-GLUCOSE METER 135 mg/dL 70-110 H : TESTED A T [facility] [address]20 (BEAKER) (test code = [facility], 1538) 18834: Database Software Technician/Techni janel ID = [id number] for PO IRIER, JEREMY ECG 12 [id number] 11:22:15Interface, External Ris In - 04/06/2020 11:22 AM CDTVentricular Rate 119 BPMAtrial Rate 119 BPMP-R Interval 128 msQRS Duration 84 msQ-T Interval 308 msQTC Calculation(Bazett) 433 msP [place] 68 degreesR [place] 64 degreesT [place] 55 degreesSinus tachycardiaOtherwise normal ECGConfirmed by MD ESTELLE, ELVIA ([id number]) on 04/06/2020 11:22:13 [facility] [id number] 07:52:00 Test Item Value Reference Range Interpretation Comments POC-GLUCOSE METER 128 mg/dL 70-110 H : TESTED A T [facility] [address]20 (BEAKER) (test code = [place], 1538) 46[address]: Database Software Technician/Techni janel ID = [id number] for JEREMY VILLEDA COMPREHENSIVE METABOLIC [id number] 04:36:00 Test Item Value Reference Range Interpretation [...] S NOT APPLICABLE FOR DIALYSIS PATIEN TS. Database Software Technician ID - PIAYA [id number] 04:10:00 Test Item Value Reference Range Interpretation Comments PARTIAL THROMBOPLASTIN TIME 29.3 seconds 22.5-36.0 (BEAKER) (test code = 760) Prior to initiating heparinCBC W/PLT COUNT & AUTO [id number] 04:02:00 Test Item Value Reference Range Interpretation [...] = 2801) Urinalysis w/Microscopic + Reflex to [id number] 00:18:00 Test Item Value Reference Range Interpretation Comments Color, UA (test code = Yellow 5778-6) Clarity, UA (test code = Clear 5767-9) Specific Ackworth, UA 1.015 1.001-1.035 (test code = 5811-5) pH, UA (test code = 7.0 5.0-8.0 5803-2) Protein, UA (test code = Negative Negative 77043-2) Glucose, UA (test code = Negative Negative 365) Ketones, UA (test code = Negative Negative 2514-8) Bilirubin, UA (test code Negative Negative = 46846-6) Blood, UA (test code = Negative Negative 82217-7) Nitrite, UA (test code = Negative Negative 5802-4) Leukocytes, UA (test code Moderate Negative A = 5799-2) Urobilinogen, UA (test 6.0 mg/dL 0.2-1 H code = 65997-6) RBC, UA (test code = <1 /HPF 24922-4) WBC, UA (test code = 14 /HPF 5821-4) Bacteria, UA (test code = Occasional 93188-8) Squam Epithel, UA (test 5 /HPF code = 83538-6) Specimen Source (test code = 2795) VIKKI (test code = VIKKI) Database Software Technician ID - [auto]Database Software Technician ID - ann Lab Interpretation (test Abnormal code = 76278-5) [facility] Center[facility]/ REFLEX URINE [id number] 00:18:00 Test Item Value Reference Range Interpretation [...] = 516) SOURCE(BEAKER) (test code = 2795) Database Software Technician ID - [auto]Database Software Technician ID - hankPOCT-GLUCOSE [id number] 23:31:00 Test Item Value Reference Range Interpretation Comments POC-GLUCOSE METER 137 mg/dL 70-110 H : TESTED A T [facility] 6720 (BEAKER) (test code = [place], 1538) [address]: Database Software Technician/Techni janel ID = [id number] for CH UA, HENRISON [id number] 19:18:00 Test Item Value Reference Range Interpretation Comments Magnesium (test code = 1.6 mg/dL 1.6-2.6 06234-1) VIKKI (test code = VIKKI) Database Software Technician ID - DB Lab Interpretation (test Normal code = 29093-0) [facility] CenterPhosphorus2020-05-29 19:18:00 Test Item Value Reference Range Interpretation Comments Phosphorus (test code = 2.9 mg/dL 2.3-4.7 2777-1) VIKKI (test code = VIKKI) Database Software Technician ID - DB Lab Interpretation (test Normal code = 95272-5) [facility] CenterPHOSPHORUS2020-05-29 19:18:00 Test Item Value Reference Range Interpretation Comments PHOSPHORUS (BEAKER) (test code = 2.9 mg/dL 2.3-4.7 604) Database Software Technician ID - EHLEMCKJHGY8451-12-04 19:18:00 Test Item Value Reference Range Interpretation Comments MAGNESIUM (BEAKER) (test code = 1.6 mg/dL 1.6-2.6 627) Database Software Technician ID - DBBASIC METABOLIC [id number] 19:18:00 Test Item Value Reference Range Interpretation [...] S NOT APPLICABLE FOR DIALYSIS PATIEN TS. Database Software Technician ID - GXS-[id number] 19:09:00 Test Item Value Reference Range Interpretation Comments D-Dimer, Quant (test code 0.89 <0.50 MG/L FEU H = 97747-9) VIKKI (test code = VIKKI) Intended Use: [...] range. Lab Interpretation (test Abnormal code = 83123-3) [facility]pt[facility] ONLY[facility]2020-04-05 19:09:00 Test Item Value Reference Range Interpretation Comments SARS-COV2/RT-PCR Not Detected Not Detected, (test code = Negative 37365-6) SARS-COV-2 [facility] PERFORMING LAB (test code = 29888-2) VIKKI (test code = Negative results do [...] of the Act. Fact Sheet for Healthcare Providers:https://www.[employer]oc[employer]/Documents/Xper t%20Xpress%20SARS%20CoV- 2/Fact%20Sheets/302-3802 %55LVJW-OYJ-7%20HEALTHCA RE%20PROVIDERS%20FACT%20 SHEET.pdf Fact Sheet for Healthcare Patients:https://www.Patient Home Monitoring/Documents/Xpert %20Xpress%20SARS%20CoV-2 /Fact%20Sheets/302-3801% 76BATJ-NUS-2%20PATIENT%2 0FACT%20SHEET.pdf Performing Laboratory:[facility] [place] [address] [facility] CenterD-[id number] 19:09:00 Test Item Value Reference Range Interpretation [...] of thrombosis is within 95-100% range. SARS-COV2/RT-PCR ([facility])2020-04-05 19:09:00 Test Item Value Reference Range Interpretation Comments SARS-COV2/RT-PCR (test Not Detected Not Detected, Negative code = 4050610) SARS-COV-2 PERFORMING LAB [facility] (test code = 6344437) Negative results do not preclude SARS-CoV-2 infection [...] of the Act.Fact Sheet for Healthcare Pro viders:https://www.[employer].AimWith/Documents/Xpert%20Xpress%20SARS%20CoV-2/Fact%20Sh eets/3023802%63LGAZ-UYW-4%20HEALTHCARE%20PROVIDERS%20FACT%20SHEET.pdfFact Sheet for Healthcare Patients:https://www.[employer] id.AimWith/Documents/Xpert%20Xpress%20SARS%20CoV-2/Fact%20Sheets/3023801%20SARS-COV -2%20PATIENT%20FACT%20SHEET.pdfPerforming Laboratory:[place] [address], [place] [address]BSB W/PLT COUNT & AUTO DIFFERENTIAL 2020-04-05 19:01:00 [...] = 2801) RAD, CHEST, 1 VIEW, NON [id number] 17:16:00Reason for exam:->sob, feverShould this be performed at the bedside?->YesFINAL REPORT TECHNIQUE: Frontal chest radiograph dated 04/05/2020. CLINICAL HISTORY: SOB, Fever COMPARISON STUDY: Chest radiograph dated 04/01/2020 IMPRESSION:Endotracheal and enteric tubes have been removed. Lungs are clear. No pleural effusion or pneumothorax. Cardiomediastinalsilhouette is normal in size. No pulmonary edema. No fracture. Signed: Douglas Haleeport V erified Date/Time: 04/05/2020 17:16:45 Reading Location: [address] Transitional Reading Room XR chest 1 view portable / [id number] 17:16:00 Interface, External Ris In - 04/05/2020 5:18 PM CDTFINAL REPORT TECHNIQUE: Frontal chest radiograph dated 04/05/2020. CLINICAL HISTORY: SOB, Fever COMPARISON STUDY: Chest radiograph dated 04/01/2020 IMPRESSION:Endotracheal and enteric tubes have been removed. Lungs are clear. No pleural effusion or pneumothorax. Cardiomediastinal silhouette is normal in size. No pulmonary edema. No fracture. Signed: Douglas Haleeport Verified Date/Time: 04/05/2020 17:16:45 Reading Location: [address] Transitional Reading Room [facility] CenterPO[facility] [id number] 17:04:00 Test Item Value Reference Range Interpretation Comments POC-GLUCOSE METER 128 mg/dL 70-110 H : TESTED A T [facility] 6720 (BEAKER) (test code = [place], 1538) [address]: Database Software Technician/Techni janel ID = [id number] for RO DGERS, JAMECA Lactic acid, [id number] 16:47:00 Test Item Value Reference Range Interpretation Comments Lactate, Venous (test code = 1.24 mmol/L 0.5-2.2 2871) VIKKI (test code = VIKKI) Database Software Technician ID - DB Lab Interpretation (test Normal code = 26401-4) [facility] CenterLACTIC ACID, [id number] 16:47:00 Test Item Value Reference Range Interpretation Comments LACTATE BLOOD VENOUS (2) (BEAKER) 1.24 mmol/L 0.50-2.20 (test code = 2872) Database Software Technician ID - DBPOCT-GLUCOSE [id number] 11:33:00 Test Item Value Reference Range Interpretation Comments POC-GLUCOSE METER 92 mg/dL 70-110 : TESTED A T [facility] 6720 (BEAKER) (test code = [facility], 153) 58265: Database Software Technician/Techni janel ID = [id number] for RODG ERS, JAMECA POCT-GLUCOSE [id number] 08:34:00 Test Item Value Reference Range Interpretation Comments POC-GLUCOSE METER 136 mg/dL 70-110 H : TESTED A T [facility] 6720 (BEAKER) (test code = [facility], 1538) 72797: Database Software Technician/Techni janel ID = [id number] for RO DGERS, JAMECA POCT-GLUCOSE [id number] 21:09:00 Test Item Value Reference Range Interpretation Comments POC-GLUCOSE METER 93 mg/dL 70-110 : TESTED A T [facility] 6720 (BEAKER) (test code = [facility], 1538) 01577: Database Software Technician/Techni janel ID = [id number] for DILCIA Z, NADINA POCT-GLUCOSE [id number] 18:02:00 Test Item Value Reference Range Interpretation Comments POC-GLUCOSE METER 84 mg/dL 70-110 : TESTED A T [facility] 6720 (BEAKER) (test code = [facility], 1538) 00850: Database Software Technician/Techni janel ID = [id number] for BROW N, DARYA Hepatic function [id number] 16:01:00 Test Item Value Reference Range Interpretation Comments Protein, Total (test code = 7.4 6.0- 8.3 gm/dL 2885-2) Albumin (test code = 3.8 g/dL 3.5-5 11374-0) Total Bilirubin (test code 1.4 mg/dL 0.2-1.2 H = 1975-2) Bilirubin, Direct (test 0.7 mg/dL 0.1-0.5 H code = 1967-7) Alkaline Phosphatase (test 102 U/L 40-150 code = 6768-6) AST (test code = 1920-8) 67 U/L 5-34 H ALT (test code = 1742-6) 40 U/L 6-55 VIKKI (test code = VIKKI) Database Software Technician ID - NTP Lab Interpretation (test Abnormal code = 64589-9) [facility] CenterHEPATIC FUNCTION [id number] 16:01:00 Test Item Value Reference Range Interpretation [...] (test code = 40 U/L 6-55 347) Database Software Technician ID - NTPCBC W/PLT COUNT & AUTO [id number] 15:40:00 Test Item Value Reference Range Interpretation [...] PERCENT (BEAKER) (test code = 2801) POCT-GLUCOSE [id number] 11:53:00 Test Item Value Reference Range Interpretation Comments POC-GLUCOSE METER 94 mg/dL 70-110 : TESTED A T [facility] 6720 (BEAKER) (test code = [place], 153) 286[address]: Database Software Technician/Techni janel ID = [id number] for DARYA SEWELL POCT-GLUCOSE [id number] 09:06:00 Test Item Value Reference Range Interpretation Comments POC-GLUCOSE METER 114 mg/dL 70-110 H : TESTED A T [facility] 6720 (BEAKER) (test code = [place], 1538) [address]: Database Software Technician/Techni janel ID = [id number] for DARYA PEREZ [id number] 06:19:00 Test Item Value Reference Range Interpretation Comments PHOSPHORUS (BEAKER) (test code = 3.8 mg/dL 2.3-4.7 604) Database Software Technician ID - ZAHRA [id number] 06:19:00 Test Item Value Reference Range Interpretation Comments MAGNESIUM (BEAKER) (test code = 1.8 mg/dL 1.6-2.6 627) Database Software Technician ID - ZAHRA MBASIC METABOLIC [id number] 06:19:00 Test Item Value Reference Range Interpretation [...] S NOT APPLICABLE FOR DIALYSIS PATIEN TS. Database Software Technician ID - ZAHRA MCBC W/PLT COUNT & AUTO [id number] 05:56:00 Test Item Value Reference Range Interpretation [...] PERCENT (BEAKER) (test code = 2801) POCT-GLUCOSE [id number] 22:05:00 Test Item Value Reference Range Interpretation Comments POC-GLUCOSE METER 110 mg/dL 70-110 : TESTED [address] [facility] 6720 (BEAKER) (test code = [place], 1538) 137[address]: Database Software Technician/Techni janel ID = [id number] for JOSE C MADDEN MS POCT-GLUCOSE [id number] 18:00:00 Test Item Value Reference Range Interpretation Comments POC-GLUCOSE METER 127 mg/dL 70-110 H : TESTED A T [facility] 6720 (BEAKER) (test code = [place] [facility], 1538) 399[address]: Database Software Technician/Techni janel ID = [id number] for Sm ith, Elaina POCT-GLUCOSE [id number] 11:47:00 Test Item Value Reference Range Interpretation Comments POC-GLUCOSE METER 100 mg/dL 70-110 : TESTED A T [facility] 6720 (BEAKER) (test code = [place] [facility], 1538) 08653: Database Software Technician/Techni janel ID = [id number] for Sm ith, Elaina Hemoglobin [id number] 10:02:00 Test Item Value Reference Range Interpretation Comments Hemoglobin A1C (test code = 4548-4) 6.0 % 4.3-6.1 Lab Interpretation (test code = Normal 50605-1) [facility] CenterHEMOGLOBIN [id number] 10:02:00 Test Item Value Reference Range Interpretation Comments HEMOGLOBIN A1C (BEAKER) (test code = 6.0 % 4.3-6.1 368) POCT-GLUCOSE [id number] 07:38:00 Test Item Value Reference Range Interpretation Comments POC-GLUCOSE METER 115 mg/dL 70-110 H : TESTED A T [facility] 6720 (BEAKER) (test code = DESIREEIN [place] [facility], 1538) 35123: Database Software Technician/Techni janel ID = [id number] for Sm ith, Elaina U/S, ABDOMINAL, [id number] 06:20:00Abdomen limited area? Add comment if clarification [...] MDReport Verified Date/Time: 04/03/2020 06:20:42 US abdomen [id number] 06:20:00Interface, External Ris In - 04/03/2020 6:23 [...] Leighton Walker MDReport Verified Date/Time: 04/03/2020 06:20:42 [facility] 04[facility]33[facility]00 Test Item Value Reference Range Interpretation Comments PHOSPHORUS (BEAKER) (test code = 3.3 mg/dL 2.3-4.7 604) Database Software Technician ID - DELFINO [id number] 04:33:00 Test Item Value Reference Range Interpretation Comments MAGNESIUM (BEAKER) (test code = 1.8 mg/dL 1.6-2.6 627) Database Software Technician ID - DELFINO LBASIC METABOLIC [id number] 04:33:00 Test Item Value Reference Range Interpretation [...] S NOT APPLICABLE FOR DIALYSIS PATIEN TS. Database Software Technician ID - DELFINO LHEPATIC FUNCTION [id number] 04:33:00 Test Item Value Reference Range Interpretation [...] (test code = 32 U/L 6-55 347) Database Software Technician ID - DELFINO LCBC W/PLT COUNT & AUTO [id number] 04:08:00 Test Item Value Reference Range Interpretation [...] PERCENT (BEAKER) (test code = 2801) POCT-GLUCOSE [id number] 21:20:00 Test Item Value Reference Range Interpretation Comments POC-GLUCOSE METER 144 mg/dL 70-110 H : Notified RN/MD: (BEAKER) (test code = TESTED AT [facility] 6720 1538) [facility], [address]: Database Software Technician/Techni janel ID = [id number] for ZAYDA LANDON ICE MR, BRAIN, WITHOUT [id number] 20:37:00FINAL REPORT MR, BRAIN, WITHOUT CONTRAST INDICATION: [...] Unremarkable. IMPRESSION:No acute intracranial abnormality. Signed: Parvin Moreort Verified Date/Time: 04/02/2020 20:37:03 MR brain without IV [id number] 20:37:00Interface, External Ris In - 04/02/2020 8:39 [...] Signed: Parvin More Verified Date/Time: 04/02/2020 20:37:[address] [facility]PO[facility] [id number] 17:29:00 Test Item Value Reference Range Interpretation Comments POC-GLUCOSE METER 131 mg/dL 70-110 H : TESTED A T [facility] 6720 (BEAKER) (test code = [place] [facility], 1538) 41318: Database Software Technician/Techni janel ID = [id number] for KATIE ZAMORA LITHIUM [id number] 16:31:00 Test Item Value Reference Range Interpretation Comments LITHIUM LEVEL (BEAKER) < mmol/L 0.8-1.2 L This test was performed (test code = 630) at:[facility] Lab , [facility], [address] [place] [address] Rapid drug screen, [id number] 13:58:00 Test Item Value Reference Range Interpretation Comments Barbiturate Screen Negative Negative (test code = 23365-4) Benzodiazepine Screen Positive Negative A (test code = 73985-3) Cocaine (Metab.) Negative Negative Screen (test code = 3397-7) Methadone Screen (test Negative Negative code = 51989-0) Opiate Screen (test Negative Negative code = 23579-4) Cannabinoid Screen Negative Negative (test code = 08878-0) Amph/Methamph Screen Negative Negative (test code = 81308-2) Phencyclidine Screen Negative Negative (test code = 47467-1) pH, UA (test code = 6.5 5.0-8.0 5803-2) VIKKI (test code = VIKKI) DRUG CUTOFF CONC.Cocaine 300 ng/mL Cannabinoid 50 ng/mLBenzodiazepine 200 ng/mLBarbiturate 200 ng/mLPhencyclidine 25 ng/mLOpiate 300 ng/mLMethadone 300 ng/mLAmphetamine/ 1000 ng/mL Methamphetamine This assay provides an unconfirmed qualitative test result for the clinical management of patients in emergency situations. Chain of custody not maintained. Some zwox-nww-baxhkju medications, as well as adulterants, may cause inaccurate results. Clinical correlation should be applied. A more comprehensive drug screen or confirmation of a detected drug may be performed upon request.Database Software Technician ID - ADMIN Lab Interpretation Abnormal (test code = 87284-8) [facility] CenterRAPID DRUG SCREEN, [id number] 13:58:00 Test Item Value Reference Range Interpretation [...] situations. Chain of custody not maintained. Some kuhh-ini-krteoqp medications, as well as adulterants, may cause inaccurate results. Clinical correlation should be applied. A more comprehensivedrug screen or confirmation of a detected drug may be performed upon request.Database Software Technician ID - ADMINEEG W VID 12-26 HR CONTINUOUS MONITORING (VEEG)2020-04-02 13:28:00Reason for exam:- >SEIZURES Should this be performed at the bedside?->YesDate of EE04/01/2020 to 04/02/2020 DATE OF REPORT: 04/02/2020 ACC: [id number] EEG Number: [id number] Start time: 04/01/2020 @ 14:41 PM Stop time: 04/02/2020 @ 11:30 AM ICD-10: R56.9 CPT Code: 51451 HISTORY: 54 y.o. Female with ADHD, bipolar [...] Attending EEG 12-26 HR Continuous Monitoring with [id number] 13:28:00 Interface, External Ris In - 04/02/2020 1:28 PM CDTDate of EE04/01/2020 to 04/02/2020 DATE OF REPORT: 04/02/2020 ACC: [id number] EEG Number: [id number] Start time: 04/01/2020 @ 14:41 PM Stop time: 04/02/2020 @ 11:30 AM ICD-10: R56.9 CPT Code: 40816 HISTORY: 54 y.o. Female with ADHD, bipolar [...] by: ELVIE MCKAY MD on 04/02/2020 01:28 [facility]2020-05-26 12:55:00 Test Item Value Reference Range Interpretation Comments Ammonia (test code = 60 18- 72 mol/L 34778-6) VIKKI (test code = VIKKI) Database Software Technician ID - ABILIO E Lab Interpretation (test Normal code = 74938-0) [facility]2020-05-26 12:55:00 Test Item Value Reference Range Interpretation Comments AMMONIA (BEAKER) (test code = 348) 60 mol/L 18-72 Database Software Technician ID - ABILIO EPOCT-GLUCOSE [id number] 11:12:00 Test Item Value Reference Range Interpretation Comments POC-GLUCOSE METER 165 mg/dL 70-110 H : TESTED A T [facility] 6720 (BEAKER) (test code = [place], 1538) 828[address]: Database Software Technician/Techni janel ID = [id number] for KATIE ZAMORA POCT-GLUCOSE [id number] 08:44:00 Test Item Value Reference Range Interpretation Comments POC-GLUCOSE METER 97 mg/dL 70-110 : TESTED A T [facility] 6720 (BEAKER) (test code = [place], 1538) [address]: Database Software Technician/Techni janel ID = [id number] for HARIS FUCHS BASIC METABOLIC [id number] 05:35:00 Test Item Value Reference Range Interpretation [...] S NOT APPLICABLE FOR DIALYSIS PATIEN TS. Database Software Technician ID - LACBC W/PLT COUNT & AUTO [id number] 05:04:00 Test Item Value Reference Range Interpretation [...] PERCENT (BEAKER) (test code = 2801) POCT-GLUCOSE [id number] 02:05:00 Test Item Value Reference Range Interpretation Comments POC-GLUCOSE METER 116 mg/dL 70-110 H : TESTED A T [facility] 6720 (BEAKER) (test code = [place], 1538) 120[address]: Database Software Technician/Techni janel ID = [id number] for Neda Pineda T4, [id number] 20:56:00 Test Item Value Reference Range Interpretation Comments Free T4 (test code = 1.19 ng/dL 0.7-1.48 3024-7) VIKKI (test code = VIKKI) Database Software Technician ID - NTP Lab Interpretation (test Normal code = 14518-4) [facility] CenterT4, [id number] 20:56:00 Test Item Value Reference Range Interpretation Comments FREE T4 (BEAKER) (test code = 655) 1.19 ng/dL 0.70-1.48 Database Software Technician ID - NTPPOCT-GLUCOSE [id number] 20:54:00 Test Item Value Reference Range Interpretation Comments POC-GLUCOSE METER 99 mg/dL 70-110 : TESTED A T [facility] 6720 (BEAKER) (test code = [place], 1538) [address]: Database Software Technician/Techni janel ID = [id number] for DUNG DOWLING TSH/Free T4 If [id number] 20:18:00 Test Item Value Reference Range Interpretation Comments TSH (test code = 0.057 0.350- 4.940 uIU/mL L 73578-9) VIKKI (test code = VIKKI) Database Software Technician ID - NTP Lab Interpretation (test Abnormal code = 94551-5) [facility] CenterTSH/FREE T4 IF [id number] 20:18:00 Test Item Value Reference Range Interpretation Comments THYROID STIMULATING HORMONE 0.057 uIU/mL 0.350-4.940 L (BEAKER) (test code = 772) Database Software Technician ID - NTPVitamin B12 and [id number] 20:07:00 Test Item Value Reference Range Interpretation Comments Vitamin B12 (test code = 929 pg/mL 213-816 H 2132-9) Folate (test code = 2284-8) 15.80 ng/mL >=7.00 VIKKI (test code = VIKKI) Database Software Technician ID - NTP Lab Interpretation (test Abnormal code = 88113-3) [facility] CenterVITAMIN B12 AND [id number] 20:07:00 Test Item Value Reference Range Interpretation Comments VITAMIN B12 (BEAKER) (test code = 929 pg/mL 213-816 H 774) FOLATE (BEAKER) (test code = 362) 15.80 ng/mL >=7.00 Database Software Technician ID - NTPHEPATIC FUNCTION [id number] 19:32:00 Test Item Value Reference Range Interpretation [...] (test code = 31 U/L 6-55 347) Database Software Technician ID - NTPPOCT-GLUCOSE [id number] 18:09:00 Test Item Value Reference Range Interpretation Comments POC-GLUCOSE METER 96 mg/dL 70-110 : TESTED A T [facility] 6720 (BEAKER) (test code = [facility], 1538) [address]: Database Software Technician/Techni janel ID = [id number] for SLY DUBOSE POCT-GLUCOSE [id number] 12:33:00 Test Item Value Reference Range Interpretation Comments POC-GLUCOSE METER 102 mg/dL 70-110 : TESTED A T [facility] 6720 (BEAKER) (test code = [facility], 1538) [address]: Database Software Technician/Techni janel ID = [id number] for JOSEPHINE HOOVER Troponin [id number] 07:53:00 Test Item Value Reference Range Interpretation Comments Troponin I (test code = 0.01 ng/mL 0-0.03 73788-1) VIKKI (test code = VIKKI) Troponin I [...] NTP Lab Interpretation (test Normal code = 92915-8) [facility] CenterTROPONIN [id number] 07:53:00 Test Item Value Reference Range Interpretation [...] failure, acidosis, acute neurological disease, and persistent tachyarrhythmia.Database Software Technician ID - NTPSARS-COV2/RT-PCR ([facility])2020-04-01 06:29:00 Test Item Value Reference Range Interpretation Comments SARS-COV2/RT-PCR (test Not Detected Not Detected, Negative code = 0281001) SARS-COV-2 PERFORMING LAB [facility] (test code = 1941132) Negative results do not preclude SARS-CoV-2 infection [...] of the Act.Fact Sheet for Healthcare Pro viders:https://www.[employer]imWith/Documents/Xpert%20Xpress%20SARS%20CoV-2/Fact%20Sh eets/302-4182%40FUKC-PET-4%20HEALTHCARE%20PROVIDERS%20FACT%20SHEET.pdfFact Sheet for Healthcare Patients:https://www.[employer].AimWith/Documents/Xpert%20Xpress%20SARS%20CoV-2/Fact%20Sheets/302-3801%20SARS-COV -2%20PATIENT%20FACT%20SHEET.pdfPerforming Laboratory:[facility], [place] [address]ESR W/PLT COUNT & AUTO DIFFERENTIAL 2020-04-01 05:56:00 [...] code = 2801) URINALYSIS W/ REFLEX URINE [id number] 05:55:00 Test Item Value Reference Range Interpretation [...] = 1584) SOURCE(BEAKER) (test code = 2795) Database Software Technician ID - [auto]Database Software Technician ID - techCreatine Kinase (CK)2020-04-01 05:42:00 Test Item Value Reference Range Interpretation Comments Total CK (test code = 79 U/L 29-200 2157-6) VIKKI (test code = VIKKI) Database Software Technician ID - ZAHRA M Lab Interpretation (test Normal code = 37439-5) [facility] CenterPHOSPHORUS2020-05-25 05:42:00 Test Item Value Reference Range Interpretation Comments PHOSPHORUS (BEAKER) (test code = 3.0 mg/dL 2.3-4.7 604) Database Software Technician ID - ZAHRA [id number] 05:42:00 Test Item Value Reference Range Interpretation Comments MAGNESIUM (BEAKER) (test code = 2.1 mg/dL 1.6-2.6 627) Database Software Technician ID - ZAHRA MBASIC METABOLIC [id number] 05:42:00 Test Item Value Reference Range Interpretation [...] S NOT APPLICABLE FOR DIALYSIS PATIEN TS. Database Software Technician ID Caroline [place] MCREATINE KINASE (CK)2020-04-01 05:42:00 Test Item Value Reference Range Interpretation Comments CREATINE KINASE TOTAL (BEAKER) (test 79 U/L 29-200 code = 380) Database Software Technician ID - ZAHRA MPT/[id number] 05:34:00 Test Item Value Reference Range Interpretation Comments Protime (test code = 15.4 11.9- 14.2 H 5902-2) seconds INR (test code = 1.3 <=5.9 6301-6) PTT (test code = 25.8 22.5- 36.0 04001-0) seconds VIKKI (test code = VIKKI) Effective 04/05/2019: PT Reference Range ChangeNew: 11.9-14.2 Previous: 11.7-14.7 RECOMMENDED COUMADIN/WARFARIN INR THERAPY RANGESSTANDARD DOSE: 2.0-3.0 Includes: PROPHYLAXIS for venous thrombosis, systemic embolization; TREATMENT for venous thrombosis and/or pulmonary embolus.HIGH RISK: Target INR is 2.5-3.5 for patients wiht mechanical heart valves. Lab Interpretation Abnormal (test code = 57366-5) [facility] CenterPT/[id number] 05:34:00 Test Item Value Reference Range Interpretation [...] mechanical heart valves.RAD, CHEST, 1 VIEW, NON [id number] 05:12:00Reason for exam:->post intubationIs the patient ?->UnknownFINAL [...] Walker MDReport Verified Date/Time: 04/01/2020 05:12:05 CRITICAL [id number] 04:51:Glendy Lockhart MD 04/15/2020 3:33 PMCritical CarePerformed by: Glendy Clayton MDAuthorized by: Glendy Clayton MD Total critical care time: 30 minutesCritical care was necessary to treat or prevent imminent or life-threatening deterioration of the following conditions: respiratory failure and NURSING EDUCATOR failure or compromise.Critical care was time spent [...] of radiographic studies and re-evaluation of patient's condition.[facility] ECG/EKG Yoqnndnofuxksq6799-03-00 04:51:Glendy Lockhart MD 04/15/2020 3:33 PMECG/EKG InterpretationDate/Time: 04/15/2020 3:33 PMPerformed by: Glendy Clayton MDAuthorized by: Arutro Downs MD The ECG was interpreted by ED physician. The ECG is interpreted as sinus tachycardia. Rate is tachycardic. Heart rate is 111 BPM.ST segments normal. T waves normal. [facility] is normal. Other findings include: prolonged QTc interval. Clinical Impression: non-specific ECGECG reviewed and does not meet STEMI criteria. Patient tolerance: Patient tolerated the procedure well with no immediate complicationsCHI [facility] POC Glucose, [id number] 05:26:00 Test Item Value Reference Range Interpretation Comments POC Glucose (test 136 mg/dL 70-115 H Notify RN or MDIf you code = POCGLUC) consider you r patient critically ill, the Moira Accu-Chek InformII metershould not be used for Glucose determinations. Draw a venous Glucose and send to the Main Lab for Analysis. [id number] 08:15:00 Test Item Value Reference Range Interpretation Comments Zuehl (test code = LI) 0.44 mmol/L 0.6-1.2 L POC Glucose, [id number] 05:37:00 Test Item Value Reference Range Interpretation Comments POC Glucose (test 134 mg/dL 70-115 H If you con drier feeder your code = POCGLUC) patient crit ically ill, the [place]ira Accu- Chek InformII meters hould not be used for Glu cose determinations. Draw a venous Glucose and send to the Main Lab for Analysis. POC Glucose, [id number] 07:28:00 Test Item Value Reference Range Interpretation Comments POC Glucose (test 128 mg/dL 70-115 H If you con drier feeder your code = POCGLUC) patient crit ically ill, the [place]ira Accu- Chek InformII meters hould not be used for Glu cose determinations. Draw a venous Glucose and send to the Main Lab for Analysis. POC Glucose, [id number] 20:18:00 Test Item Value Reference Range Interpretation Comments POC Glucose (test 121 mg/dL 70-115 H If you con drier feeder your code = POCGLUC) patient crit ically ill, the [place]ira Accu- Chek InformII meters hould not be used for Glu cose determinations. Draw a venous Glucose and send to the Main Lab for Analysis. BHCG, Serum, [id number] 22:36:00 Test Item Value Reference Range Interpretation Comments Preg Qual [Se] (test code = BSHCG) Negative Negative N POC Glucose, [id number] 15:14:00 Test Item Value Reference Range Interpretation Comments POC Glucose (test 117 mg/dL 70-115 H If you con drier feeder your code = POCGLUC) patient crit ically ill, the [place]ira Accu- Chek InformII meters hould not be used for Glu cose determinations. Draw a venous Glucose and send to the Main Lab for Analysis.
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
--- NOTE | 2020-10-27 10:52 | RAD REPORT ---
EXAM DESCRIPTION: RAD - Chest Single View - 10/27/2020 10:26 am CLINICAL HISTORY: shortness of breath Chest pain. COMPARISON: Chest Single View dated 09/03/2020; Chest Single View dated 03/31/2020; Chest Single View dated 03/18/2020; Chest Single View dated 02/20/2020 FINDINGS: Portable technique limits examination quality. The lungs are grossly clear. The heart is mildly enlarged in size. No displaced fractures. IMPRESSION: No acute intrathoracic process suspected.
[2020-10-27 11:35] LABS: Absolute Lymphocytes (CBC) 0.9 K/uL (0.7-4.9); Basophils % 0.5 % (0-1.3); Hematocrit 38.4 % (36.0-45.0); Lymphocytes % 19.5 % (15.3-44.8); MPV 9.1 fL (7.6-11.3); RBC Red Blood Cell Count 4.29 M/uL (3.86-4.86)
[2020-10-27 11:37] LABS: Protime INR 1.05
[2020-10-27 11:59] LABS: ALT/SGPT 39 U/L (12-78); AST/SGOT 28 U/L (15-37); Albumin 3.6 g/dL (3.4-5.0); Alkaline Phosphatase 141 U/L (45-117); BUN Blood Urea Nitrogen 11 mg/dL (7-18); Bicarbonate 33 mmol/L (21-32); Bilirubin Direct 0.2 mg/dL (0-0.2); Bilirubin Total 0.5 mg/dL (0.2-1.0); Glucose Level 111 mg/dL (74-106); Magnesium 2.2 mg/dL (1.8-2.4); NT PRO-BNP 32 pg/mL (<125); Potassium 3.8 mmol/L (3.5-5.1); Protein, Total 8.1 g/dL (6.4-8.2); Sodium Level 142 mmol/L (136-145); Troponin (Emerg Dept Use Only) < 0.02 ng/mL (0.0-0.045)
[2020-10-27 12:23] LABS: Blood Morphology Comment NOT SEEN (NOT SEEN); Platelet Estimate DECR
--- NOTE | 2020-10-27 13:09 | RAD REPORT ---
EXAM DESCRIPTION: CT - Chest For Pe Angio - 10/27/2020 12:59 pm CLINICAL HISTORY: Chest pain. shortness of breath COMPARISON: Thorax Wo Con dated 03/18/2020 TECHNIQUE: CT angiogram of the pulmonary arteries was performed with MIP. All CT scans are performed using dose optimization technique as appropriate and may include automated exposure control or mA/KV adjustment according to patient size. FINDINGS: No evidence of pulmonary thromboembolism. No acute aortic finding demonstrated. The lungs are clear. No significant pericardial or pleural fluid. No concerning bony finding. IMPRESSION: No evidence of pulmonary thromboembolism. No acute lung findings.
--- NOTE | 2020-10-27 13:33 | ER ---
Nurse's Notes [facility] Name: Wendi Norton Age: 55 yrs Sex: Female : 1965 Arrival Date: 10/27/2020 Time: 10:05 Bed 14 Private MD: Diagnosis: Dyspnea Presentation: 10/27 10:00 Initial Sepsis Screen: Does the patient meet any 2 criteria? No. Patient's initial vg1 sepsis screen is negative. Does the patient have a suspected source of infection? No. Patient's initial sepsis screen is negative. 10:05 Chief complaint: EMS states: SOB, headache x 1 week. Coronavirus screen: Client denies sv travel out of the [place] in the last 14 days. Client presents with at least one sign or symptom that may indicate coronavirus-19. Standard/surgical mask placed on the client. Provider contacted for isolation considerations. Ebola Screen: No symptoms or risks identified at this time. Risk Assessment: Do you want to hurt yourself or someone else? Patient reports no desire to harm self or others. Onset of symptoms was October 2020. 10:05 Method Of Arrival: EMS: [facility] sv 10:05 Acuity: RAUL 3 sv Triage Assessment: 10:00 Respiratory: Reports ran out of oxygen at home. Onset: The symptoms/episode vg1 began/occurred seven days ago., the patient has moderate shortness of breath. Historical: - Allergies: 10:08 Motrin; sv - PMHx: 10:08 ADD/ADHD; Asthma; Bipolar disorder; breast cancer- in remission; COPD; Depression; sv Diabetes - NIDDM; Diverticulitis; Hepatitis; Pain Management; PTSD; - PSHx: 10:08 ; arm surgery; leg surgery; sv - Immunization history:: Adult Immunizations up to date. - Social history:: Smoking status: unknown. Screenin:00 Abuse screen: Denies threats or abuse. Nutritional screening: No deficits noted. vg1 Tuberculosis screening: No symptoms or risk factors identified. Fall Risk No fall in past 12 months (0 pts). No secondary diagnosis (0 pts). IV access (20 points). Ambulatory Aid- None/Bed Rest/Nurse Assist (0 pts). Gait- Normal/Bed Rest/Wheelchair (0 pts) Mental Status- Oriented to own ability (0 pts). Total Singleton Fall Scale indicates No Risk (0-24 pts). Assessment: 10:00 General: Appears in no apparent distress. comfortable, Behavior is calm, cooperative. vg1 Pain: Denies pain. Neuro: Level of Consciousness is awake, alert, obeys commands, Oriented to person, place, time. Cardiovascular: Rhythm is regular. Respiratory:. Respiratory: Reports shortness of breath at rest cough that is non-productive, Airway is patent Respiratory effort is even, unlabored, Respiratory pattern is regular, symmetrical, Breath sounds are clear bilaterally. GI: No signs and/or symptoms were reported involving the gastrointestinal system. : No signs and/or symptoms were reported regarding the genitourinary system. EENT: No signs and/or symptoms were reported regarding the EENT system. Derm: Skin is pink, warm \T\ dry. Musculoskeletal: Range of motion: intact in all extremities. 11:15 Reassessment: Patient appears in no apparent distress at this time. Patient and/or vg1 family updated on plan of care and expected duration. Pain level reassessed. Patient states feeling better. 11:25 Reassessment: charge nurse KEYUR [place] notified of need for IV. tw2 13:00 Reassessment: Patient appears in no apparent distress at this time. No changes from vg1 previously documented assessment. Patient and/or family updated on plan of care and expected duration. Pain level reassessed. Vital Signs: 10:00 BP 111 / 91; Pulse 104; Resp 20; Temp 99.0; Pulse Ox 96% on 2 lpm NC; Weight 76.2 kg; vg1 Height 5 ft. 4 in. (162.56 cm); Pain 0/10; 10:30 BP 142 / 80; Pulse 99; Resp 20; Pulse Ox 99% on 2 lpm NC; vg1 11:00 BP 132 / 95; Pulse 110; Resp 16; Pulse Ox 99% on R/A; vg1 11:40 BP 121 / 62; Pulse 96; Resp 16; Pulse Ox 97% on 2 lpm NC; vg1 12:00 BP 141 / 66; Pulse 98; Resp 18; Pulse Ox 96% on 2 lpm NC; vg1 13:20 BP 123 / 65; Pulse 95; Resp 18; Pulse Ox 100% on 2 lpm NC; vg1 10:00 Body Mass Index 28.84 (76.20 kg, 162.56 cm) vg1 ED Course: 10:05 Patient arrived in ED. sv 10:05 Myla Bailey, RN is Primary Nurse. vg1 10:06 Triage completed. 10:06 Jose Miguel Alberto PA is PHCP. [facility] 10:06 Gato Smart MD is Attending Physician. m 10:08 Arm band placed on. sv 10:08 Patient has correct armband on for positive identification. Bed in low position. Call light in reach. Pulse ox on. NIBP on. 10:26 XRAY Chest (1 view) In Process Unspecified. EDMS 10:36 Missed attempt(s): 20 gauge in right antecubital area. vg1 11:12 Missed attempt(s): 22 gauge in left in right forearm. antecubital area. mh5 11:25 Initial lab(s) drawn, by az, sent to lab. Missed attempt(s): 22 gauge in left tw2 antecubital area. Bleeding controlled, band aid applied, catheter tip intact. Missed attempt(s): 22 gauge in left antecubital area. blood collected. 12:30 Inserted saline lock: 22 gauge in left wrist, using aseptic technique. jp3 12:[address] via stretcher. vg1 12:59 CT Chest For PE Angio In Process Unspecified. EDMS 14:10 No provider procedures requiring assistance completed. IV discontinued, intact, vg1 bleeding controlled, No redness/swelling at site. Pressure dressing applied. Administered Medications: No medications were administered Outcome: 13:32 Discharge ordered by . jm 14:08 Discharged to home ambulatory. vg1 14:08 Condition: stable 14:08 Discharge instructions given to patient, Instructed on discharge instructions, follow up and referral plans. Demonstrated understanding of instructions, follow-up care. 14:11 Patient left the ED. vg1 Signatures: Dispatcher [employer] EDMS Padmini Scott, RN RN Jose Miguel Vaz PA PA Jennifer Gaston RN RN tw2 Eve Drummond 5 [place] jp3 Myla Bailey, RN RN vg1 Corrections: (The following items were deleted from the chart) 10:45 10:00 BP 111 / 91; Pulse 104bpm; Resp 20bpm; Pulse Ox 96% 2 lpm Nasal Cannula; Temp vg1 99.0F; Pain 0/10; vg1
--- NOTE | 2020-10-27 13:34 | EDPHYS ---
Physician Documentation [facility] Name: Wendi Norton Age: 55 yrs Sex: Female : 1965 Arrival Date: 10/27/2020 Time: 10:05 Bed 14 Private MD: ED Physician Gato Smart HPI: 10/27 10:21 This 55 yrs old Female presents to ER via EMS with complaints of Shortness Of jmm Breath, Headache. 10:21 The patient has shortness of breath at rest. Onset: The symptoms/episode began/occurred jmm gradually. Duration: The symptoms are continuous. The patient's shortness of breath is aggravated by nothing, is alleviated by nothing. Associated signs and symptoms: Pertinent positives: non-productive cough, Pertinent negatives: fever, hemoptysis, loss of consciousness. This is a 55 year old female with a history of asthma, bipolar, breast cancer that presents to the ED with complaints of cough, shortness of breath ongoing for the past week. Patient states she tested negative for COVID. Denies fever. Concerned it may be due to breast cancer remission. Historical: - Allergies: 10:08 Motrin; sv - PMHx: 10:08 ADD/ADHD; Asthma; Bipolar disorder; breast cancer- in remission; COPD; Depression; sv Diabetes - NIDDM; Diverticulitis; Hepatitis; Pain Management; PTSD; - PSHx: 10:08 ; arm surgery; leg surgery; sv - Immunization history:: Adult Immunizations up to date. - Social history:: Smoking status: unknown. ROS: 10:21 Abdomen/GI: Negative for abdominal pain, nausea, vomiting, diarrhea, and constipation. jmm 10:21 Neuro: Negative for headache, weakness, numbness, tingling, and seizure. 10:21 Constitutional: Positive for fatigue, malaise. 10:21 Respiratory: Positive for cough, shortness of breath. 10:21 All other systems are negative. Exam: 10:21 Constitutional: This is a well developed, well nourished patient who is awake, alert, jmm and in no acute distress. Head/Face: atraumatic. Eyes: EOMI, no conjunctival erythema appreciated ENT: Moist Mucus Membranes Neck: Trachea midline, Supple Chest/axilla: Normal chest wall appearance and motion. Cardiovascular: Regular rate and rhythm. No edema appreciated Respiratory: Normal respirations, no respiratory distress appreciated Abdomen/GI: Non distended, soft Back: Normal ROM Skin: General appearance color normal MS/ Extremity: Moves all extremities, no obvious deformities appreciated, no edema noted to the lower extremities Neuro: Awake and alert, normal gait Psych: Behavior is normal, Mood is normal, Patient is cooperative and pleasant 10:55 ECG was reviewed by the Attending Physician. [facility] Vital Signs: 10:00 BP 111 / 91; Pulse 104; Resp 20; Temp 99.0; Pulse Ox 96% on 2 lpm NC; Weight 76.2 kg; vg1 Height 5 ft. 4 in. (162.56 cm); Pain 0/10; 10:30 BP 142 / 80; Pulse 99; Resp 20; Pulse Ox 99% on 2 lpm NC; vg1 11:00 BP 132 / 95; Pulse 110; Resp 16; Pulse Ox 99% on R/A; vg1 11:40 BP 121 / 62; Pulse 96; Resp 16; Pulse Ox 97% on 2 lpm NC; vg1 12:00 BP 141 / 66; Pulse 98; Resp 18; Pulse Ox 96% on 2 lpm NC; vg1 13:20 BP 123 / 65; Pulse 95; Resp 18; Pulse Ox 100% on 2 lpm NC; vg1 10:00 Body Mass Index 28.84 (76.20 kg, 162.56 cm) 1 MDM: 10:16 Patient medically screened. [facility] 13:30 Data reviewed: vital signs, nurses notes. Counseling: I had a detailed discussion with [facility] the patient and/or guardian regarding: the historical points, exam findings, and any diagnostic results supporting the discharge/admit diagnosis, lab results, radiology results, the need for outpatient follow up, to return to the emergency department if symptoms worsen or persist or if there are any questions or concerns that arise at home. ED course: Patient is alert and non toxic in appearance in the ED. Patient is advised to follow up with pcp and otherwise given strict return precautions. patient understood and agrees with the plan of care. . 10/27 10:07 Order name: Basic Metabolic Panel; Complete Time: 12:03 [facility] 10/27 10:07 Order name: CBC with Diff; Complete Time: 12:32 [facility] 10/27 10: Order name: LFT's; Complete Time: 12:03 [facility] 10/27 10:07 Order name: Magnesium; Complete Time: 12:03 [facility] 10/27 10:07 Order name: NT PRO-BNP; Complete Time: 12:03 [facility] 10/27 10:07 Order name: Troponin (emerg Dept Use Only); Complete Time: 12:03 [facility] 10/27 10:07 Order name: XRAY Chest (1 view); Complete Time: 10:55 [facility] 10/27 10:07 Order name: EKG; Complete Time: 10:08 [facility] 10/27 10:07 Order name: Cardiac monitoring; Complete Time: 10:26 [facility] 10/27 10:08 Order name: D-Dimer; Complete Time: 11:44 [facility] 10/27 11:32 Order name: Protime (+INR); Complete Time: 11:44 [facility] 10/27 11:44 Order name: CT Chest For PE Angio; Complete Time: 13:14 [facility] 10/27 12:24 Order name: Manual Differential; Complete Time: 12:32 [facility] 10/27 10:07 Order name: EKG - Nurse/Tech; Complete Time: 10:44 [facility] 10/27 10:07 Order name: Labs collected and sent; Complete Time: 11:37 [facility] 10/27 10:07 Order name: O2 Per Protocol; Complete Time: 10:22 [facility] 10/27 10:07 Order name: O2 Sat Monitoring; Complete Time: 10:22 jmm EC:55 Rate is 100 beats/min. Rhythm is regular. QRS [place] is Normal. [place] interval is normal. jmm QRS interval is normal. QT interval is normal. No Q waves. T waves are Normal. No ST changes noted. Reviewed by me. Administered Medications: No medications were administered Disposition: 14:36 Co-signature as Attending Physician, Gato Smart MD. rn Disposition: 10/27/20 13:32 Discharged to Home. Impression: Dyspnea. - Condition is Stable. - Discharge Instructions: Shortness of Breath. - Medication Reconciliation Form, Thank You Letter, Antibiotic Education, Prescription Opioid Use form. - Follow up: Private Physician; When: 2 - 3 days; Reason: Recheck today's complaints, Continuance of care, Re-evaluation by your physician. Signatures: Dispatcher [facility] Padmini Roper RN RN Jose Miguel Vaz PA PA jmm Nieto, Roman, MD MD rn Garcia, Victoria, RN RN vg1 Corrections: (The following items were deleted from the chart) 11:32 10:08 PROTIME (+INR)+COAG.LAB.BRZ ordered. EDMS EDMS 14:11 13:32 10/27/2020 13:32 Discharged to Home. Impression: Dyspnea. Condition is Stable. vg1 Forms are Medication Reconciliation Form, Thank You Letter, Antibiotic Education, Prescription Opioid Use. Follow up: Private Physician; When: 2 - 3 days; Reason: Recheck today's complaints, Continuance of care, Re-evaluation by your physician. [facility]
--- NOTE | 2020-10-28 07:35 | EKG ---
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
[2020-10-29 10:22] VITALS: BP 123/65; O2SAT 100
== END 2020-10-27 14:11 | disposition home or self-care (01) ==
LOC: ER 10:01
DX: R06.00 Dyspnea, unspecified (principal); J44.9 Chronic obstructive pulmonary disease, unspecified; J45.909 Unspecified asthma, uncomplicated; E11.9 Type 2 diabetes mellitus without complications; F43.10 Post-traumatic stress disorder, unspecified; Z85.3 Personal history of malignant neoplasm of breast
CPT/HCPCS: 93005; 85025; 80048; 36415; 83735; 85610; 85379; 80076; 84484; 83880; 71275; 71045; 99284; Q9967

== ENCOUNTER 2020-11-16 09:03 | Emergency (ER) | payer OTHER ==
--- OUTSIDE RECORDS SUMMARY | 2020-11-16 09:07 | XMS REPORT | Clinical Summary ---
:1965 Author Organization [facility] Address [address] [place] [address] Care Team Providers Name Role Phone Unavailable [...] re-like activity (FORMERLY [facility]) 04/01/2020 Orders Only General Internal Medicine 04/01/2020 Travel after 11/16/2019 Social History Tobacco Use Types Packs/Day Years [...] are i n the results section. SARS-COV2/RT-PCR ([facility] Routine 04/05/2020 5:02 R esults for this [...] 348 ms QTC Calculation(Bazett) 473 ms P [place] 61 degrees R [place] 50 degrees T [place] 42 degrees Sinus tachycardia Otherwise normal ECG [...] i n the results section . after 11/16/2019 Results RHYTHM STRIP - SCAN (04/17/2020 3:11 PM CDT) Narrative Performed At This result has an attachment that is no t available. POC-Glucose meter (04/15/2020 10:05 PM CDT)Only the most recent of52 results within the time period is included. POC-Glucose Meter 124 (H)Comment: 70 - 110 mg/dL [facility] : TESTED AT [facility] [address] [facility], [address]: Turbine Engine Assembler/Technic renee ID = [id number] for RAY ERVIN Specimen Blood Performing Organization Address City/[facility]/Zipcode Phone Number [address] [address] CENTER [place] level (04/12/2020 4:26 AM CDT)Only the most recent of3 resultswithin the time period is included. Pathologist Sig nature [place] Level 0.6 (L) 0.8 - 1.2 mmol/L [facility] Specimen Blood Narrative Performed At This result has an attachment that is no t available. Performing Organization Address [facility] Phone Number [address] [address] [place] CBC with platelet count + automated diff (04/10/2020 3:58 AM CDT)Only the most recent of10 resultswithin the time period is included. Pathologist Sig nature WBC 4.6 3.5 - 10.5 [facility] K/L [facility] RBC 4.19 3.93 - 5.22 [facility] M/L [facility] Hemoglobin 12.0 11.2 - 15.7 [facility] GM/DL [facility] Hematocrit 37.6 34.1 - 44.9 % [facility] MCV 89.7 79.4 - 94.8 fL [facility] MCH 28.6 25.6 - 32.2 pg [facility] MCHC 31.9 (L) 32.2 - 35.5 [facility] GM/DL [facility] RDW 13.8 11.7 - 14.4 % [facility] Platelets 92 (L) 150 - 450 K/CU [facility] MPV 12.3 9.4 - 12.3 fL [facility] nRBC 0 0 - 0 /100 WBC [facility] % Neutros 48 % [facility] % Lymphs 37 % [facility] % Monos 11 % [facility] % Eos 3 % [facility] % Baso 0 % [facility] # Neutros 2.20 1.56 - 6.13 [facility] # Lymphs 1.69 1.18 - 3.74 [facility] # Monos 0.50 (H) 0.24 - 0.36 [facility] # Eos 0.13 0.04 - 0.36 [facility] # Baso 0.02 0.01 - 0.08 [facility] Immature 0 0 - 1 % [facility] Granulocytes-Relative [facility] Specimen Blood Performing Organization Address City/State/Zipcode Phone Number [facility] [address] [place] [address] CENTER Basic Metabolic Panel (04/10/2020 3:58 AM CDT)Only the most recent of6 results within the time period is included. Sodium 143 136 - 145 meq/L [facility] Potassium 4.0 3.5 - 5.1 meq/L [facility] Chloride 111 (H) 98 - 107 meq/L [facility] CO2 25 22 - 29 meq/L [facility] BUN 11 7 - 21 mg/dL [facility] Creatinine 0.76 0.57 - 1.25 [facility] mg/dL [facility] Glucose 106 (H) 70 - 105 mg/dL [facility] Calcium 9.6 8.4 - 10.2 [facility] mg/dL [facility] EGFR 79Comment: ESTIMATED mL/min/1.[address] [facility] GFR IS NOT [facility] ACCURATE CENTER CREATININE CLEARANCE IN PREDICTING GLOMERULAR FILTRATION RATE. ESTIMATED GFR IS NOT APPLICABLE FOR DIALYSIS PATIENTS. Specimen Blood Narrative Performed At [employer]ine Engine Assembler DEEPA Velazquez ZAHRA Bettencourt [facility] CENTER Performing Organization Address City/State/Zipcode Phone Number [facility] [address] [place] [address] CENTER Comprehensive metabolic panel (04/08/2020 3:42 AM CDT)Only the most recent of3 resultswithin the time period is included. Protein, Total 7.5 6.0 - 8.3 [facility] gm/dL [facility] Albumin 3.7 3.5 - 5.0 [facility] g/dL [facility] Alkaline 94 40 - 150 U/L [facility] Phosphatase [facility] Total Bilirubin 0.9 0.2 - 1.2 [facility] mg/dL [facility] Sodium 141 136 - 145 [facility] meq/L [facility] Potassium 4.0 3.5 - 5.1 [facility] meq/L [facility] Chloride 110 (H) 98 - 107 [facility] meq/L [facility] CO2 23 22 - 29 meq/L [facility] BUN 10 7 - 21 mg/dL [facility] Creatinine 0.72 0.57 - 1.25 [facility] mg/dL [facility] Glucose 123 (H) 70 - 105 [facility] mg/dL [facility] Calcium 9.6 8.4 - 10.2 [facility] mg/dL [facility] AST 28 5 - 34 U/L [facility] ALT 39 6 - 55 U/L [facility] EGFR 84Comment: [facility]min[facility].73 [facility] EST[facility] IS sq [facility] NOT [facility]ENTER CREATININE CLEARANCE IN PREDICTING GLOMERULAR FILTRATION RATE. ESTIMATED GFR IS NOT APPLICABLE FOR DIALYSIS PATIENTS. Specimen Blood Narrative Performed At Turbine Engine Assembler DEEPA Caroline SALEH L [facility] CENTER Performing Organization Address City/State/Zipcode Phone Number [facility] [address] [place] [address] chest for pulmonary embolus (04/06/2020 4:30 PM CDT) Specimen Narrative Performed At FINAL REPORT RIS Exam: CT pulmonary angiogram Clinical History: [...] Report Verified Date/Time: 04/06/2020 16:45:26 Reading Location: [address] Reading Room Procedure Note Interface, External [...] Verified Date/Time: 04/06/2020 1 6:45:26 Reading Location: [facility] C0T [facility] Reading Room Performing Organization Address City/State/Zipcode Phone Number [facility] aPTT (04/06/2020 1:47 PM CDT)Only the most recent of2 resultswithin the time period is included. Pathologist Sig nature PTT 31.0 22.5 - 36.0 seconds [facility] Specimen Blood Narrative Performed At 6 hours after starting heparin infusion and [facility] as indicated per sliding scale Performing Organization Address City/[facility]/Zipcode Phone Number [address] [address] CENTER Respiratory Panel [facility] (04/06/2020 9:15 AM CDT) Human Metapneumovirus Not detected Not detected, [facility] Rhinovirus Not detected Not detected, [facility] Influenza A Not detected Not detected, [facility] INFLUENZA A (NO [facility] SUBTYPE) [facility] Influenza A subtype H1 [facility] Influenza A Subtype H3 [facility] Influenza A Subtype [facility] H1-2009 [facility] Influenza B Not detected Not detected, [facility] Respiratory Syncytial Not detected Not detected, [facility] Virus [facility] Parainfluenza Virus 1 Not detected Not detected, [facility] Parainfluenza Virus 2 Not detected Not detected, [facility] Parainfluenza virus 3 Not detected Not detected, [facility] Parainfluenza Virus 4 Not detected Not detected, [facility] Adenovirus Not detected Not detected, [facility] Coronavirus 229E Not detected Not detected, [facility] Coronavirus HKU1 Not detected Not detected, [facility] Coronavirus NL63 Not detected Not detected, [facility] Coronavirus OC43 Not detected Not detected, [facility] Bordetella Pertussis Not detected Not detected, [facility] Chlamydophila Not detected Not detected, [facility] Pneumoniae [facility] Mycoplasma Pneumoniae Not detected Not detected, [facility] Specimen Nasopharyngeal - Nasopharyngeal wall str ucture (body structure) Narrative Performed At Other viruses and bacteria not targeted by [facility] this PCR panel cannot be excluded; therefore clinical correlation and follow up of serology, culture results, and other molecular studies is required. The results are not intended to be used as the sole means for clinical diagnosis or patient management decisions. This sample was tested at the [facility] using the [employer] Respiratory Panel. It is FDA cleared and has been verified and approved by the [facility] for clinical use on nasopharyngeal swab specimens. The performance of the [employer] RP has not been established in individuals who received influenza vaccine. Recent administration of a nasal influenza vaccine may cause false positive results for Influenza A and/or Influenza B. Performing Organization Address City/State/Zipcode Phone Number [facility] [address] [place] [address] [place] Urinalysis w/Microscopic + Reflex to Culture (04/05/2020 7:02 PM CDT)Only the most recent of2 resultswithin the time period is included. Color, UA Yellow [facility] Clarity, UA Clear [facility] Specific [place], 1.015 1.001 - 1.035 [facility] pH, UA 7.0 5.0 - 8.0 [facility] Protein, UA Negative Negative [facility] Glucose, UA Negative Negative [facility] Ketones, UA Negative Negative [facility] Bilirubin, UA Negative Negative [facility] Blood, UA Negative Negative [facility] Nitrite, UA Negative Negative [facility] Leukocytes, UA Moderate (A) Negative [facility] Urobilinogen, UA 6.0 (H) 0.2 - 1.0 mg/dL [facility] RBC, UA <1 /HPF [facility] WBC, UA 14 /HPF [facility] Bacteria, UA Occasional [facility] Squam Epithel, UA 5 /HPF [facility] Specimen Source [facility] Specimen Urine - Urine specimen collection, clean catch (procedure) Narrative Performed At Turbine Engine Assembler ID - [auto] [facility] Turbine Engine Assembler ID - ann Performing Organization Address City/State/Zipcode Phone Number [facility] [address] [place] [address] [place] Urine culture (04/05/2020 7:02 PM CDT) Pathologist Sig nature Result >100,000 col/mL [facility] Escherichia coli (A) [facility] Specimen Urine - Urine specimen collection, clean catch (procedure) Narrative Performed At <10,000 col/mL gram negative layla of a second [facility] type 40-49,000 col/mL skin krystin [...] + Sulfamethoxazole >=320: Resistant Performing Organization Address [facility] Phone Number [address] [address] CENTER D-dimer (04/05/2020 6:48 PM CDT) Pathologist Sig nature D-Dimer, Quant 0.89 (H) <0.50 MG/L FEU [facility] Specimen Blood Narrative Performed At Intended Use: The D-Dimer Assay can be used [facility] to aid in the diagnosis of Deep Vein Thrombosis (DVT) and Pulmonary Embolism Disease (PED). In patients with low pre-test probability, various studies concerning STA Liatest D-dimer test have reported that with a cutoff value of 0.50 MG/L FEU, the Negative Predictive Value (NPV) regarding the exclusion of thrombosis is within 95-100% range. Performing Organization Address [facility] Phone Number [address] [address] CENTER Phosphorus (04/05/2020 6:48 PM CDT)Only the most recent of4 resultswithin the time period is included. Pathologist Sig nature Phosphorus 2.9 2.3 - 4.7 mg/dL [facility] Specimen Blood Narrative Performed At Turbine Engine Assembler ID - DB [facility] Performing Organization Address [facility]/[place] [address] CENTER Magnesium (04/05/2020 6:48 PM CDT)Only the most recent of4 resultswithin the time period is included. Pathologist Sig nature Magnesium 1.6 1.6 - 2.6 mg/dL [facility] Specimen Blood Narrative Performed At Turbine Engine Assembler ID - DB [facility] Performing Organization Address [facility] [place] [address] [place] SARS-CoV2/RT-PCR (Symptomatic ONLY) (04/05/2020 5:02 PM CDT)Only the most recent of2 resultswithin the time period is included. SARS-COV2/RT-PCR Not Detected Not Detected, [facility] SARS-COV-[address] [facility] Specimen Other - Nasopharyngeal wall structure (b judah structure) Narrative Performed At Negative results do not preclude SARS-CoV-2 [facility] infection and should not be [...] the Act. Fact Sheet for Healthcare Providers: https://www.BringIt/Documents/Xpert%20Xpre ss%20SARS%20CoV-2/Fact%20Sheets/3023802%20SAR S-COV-2%20HEALTHCARE%20PROVIDERS%20FACT%20SHEE T.pdf Fact Sheet for Healthcare Patients: https://www.BringIt/Documents/Xpert%20Xpre ss%20SARS%20CoV-2/Fact%20Sheets/3023801%20SAR S-COV-2%20PATIENT%20FACT%20SHEET.pdf Performing Laboratory: [place] [address] Performing Organization Address City/State/[place] [address] CENTER XR chest 1 view portable / [...] Report Verified Date/Time: 04/05/2020 17:16:45 Reading Location: [facility] [id number] [facility] Reading Room Procedure Note Interface, External [...] Verified Date/Time: 04/05/2020 1 7:16:45 Reading Location: [address] Reading Room Performing Organization Address City/State/Zipcode Phone Number GE RIS Lactic acid, venous (04/05/2020 4:24 PM CDT) Pathologist Sig nature Lactate, Venous 1.24 0.50 - 2.20 mmol/L [facility] Specimen Blood Narrative Performed At Turbine Engine Assembler ID - DB [facility] Performing Organization Address [facility] Phone Number [facility] [address] [place] [address] CENTER ECG 12 lead (04/05/2020 4:08 PM CDT)Only the most recent of3 resultswithin the time period is included. Specimen Narrative Performed At Ventricular Rate 119 BPM GE MUSE Atrial Rate 119 BPM P-R Interval 128 ms QRS Duration 84 ms Q-T Interval 308 ms QTC Calculation(Bazett) 433 ms P [place] 68 degrees R [place] 64 degrees T [place] 55 degrees Sinus tachycardia Otherwise normal ECG Confirmed by MD MCCABE MAJID ([id number]) on 020 11:22:13 AM Procedure Note Interface, External Ris In - 04/06/2020 11:22 AM CDT Ventricular Rate 119 BPM Atrial Rate 119 BPM P-R Interval 128 ms QRS Duration 84 ms Q-T Interval 308 ms QTC Calculation(Bazett) 433 ms P [place] 68 degrees R [place] 64 degrees T [place] 55 degrees Sinus tachycardia Otherwise normal ECG Confirmed by MD MCCABE MAJID ( [id number]) on 04/06/2020 11:22:13 AM Performing Organization Address City/[facility] Phone Number GE MUSE Hepatic function panel (04/04/2020 3:21 PM CDT)Only the most recent of3 results within the time period is included. Pathologist Sig nature Protein, Total 7.4 6.0 - 8.3 gm/dL [facility] Albumin 3.8 3.5 - 5.0 g/dL [facility] Total Bilirubin 1.4 (H) 0.2 - 1.2 mg/dL [facility] Bilirubin, Direct 0.7 (H) 0.1 - 0.5 mg/dL [facility] Alkaline Phosphatase 102 40 - 150 U/L [facility] AST 67 (H) 5 - 34 U/L [facility] ALT 40 6 - 55 U/L [facility] Specimen Blood Narrative Performed At Turbine Engine Assembler ID - NTP [facility] Performing Organization Address City/State/Zipcode Phone Number [facility] [address] [place] [address] CENTER EKG-SCANNED (04/04/2020 1:41 PM CDT) Narrative Performed At This result has an attachment that is no t available. US abdomen limited (04/03/2020 5:45 AM CDT) Specimen Narrative Performed At FINAL REPORT [employer] History: Evaluate for cirrhosis Abdominal ultrasound dated [...] 6:20:42 Performing Organization Address City/State/Zipcode Phone Number [facility] Hemoglobin A1c (04/03/2020 3:34 AM CDT) [facility] Hemoglobin A1C 6.0 4.3 - 6.1 % [facility] Specimen Blood Performing Organization Address City/State/Zipcode Phone Number [facility] [address] [place] [address] CENTER MR brain without IV contrast (04/02/2020 8:22 PM CDT) Specimen Narrative Performed At FINAL REPORT [employer] MR, BRAIN, WITHOUT CONTRAST INDICATION: Neuro deficit, [...] Date/Time: 04/02/2020 2 0:37:03 Performing Organization Address [facility] Phone Number GE RIS Rapid drug screen, urine (04/02/2020 1:14 PM CDT) Barbiturate Screen Negative Negative [facility] Benzodiazepine Screen Positive (A) Negative [facility] Cocaine (Metab.) Screen Negative Negative [facility] Methadone Screen Negative Negative [facility] Opiate Screen Negative Negative [facility] Cannabinoid Screen Negative Negative [facility] Amph/Methamph Screen Negative Negative [facility] Phencyclidine Screen Negative Negative [facility] pH, UA 6.5 5.0 - 8.0 [facility] Specimen Urine Narrative Performed At [facility] Cocaine 300 ng/mL Cannabinoid 50 ng/mL Benzodiazepine 200 ng/mL Barbiturate 200 ng/mL Phencyclidine 25 ng/mL Opiate 300 ng/mL Methadone 300 ng/mL Amphetamine/ 1000 ng/mL Methamphetamine This assay provides an unconfirmed qualitative test result for the clinical management of patients in emergency situations. Chain of custody not maintained. Some [id number] medications, as well as adulterants, may cause inaccurate results. Clinical correlation should be applied. A more comprehensive drug screen or confirmation of a detected drug may be performed upon request. Turbine Engine Assembler ID - ADMIN Performing Organization Address [facility]/Zipcode Phone Number [facility] [address] [place] [address] [place] Drug screen, urine, comprehensive (04/02/2020 1:12 PM CDT) Specimen Urine Narrative Performed At This result has an attachment that is no t available. Ammonia (04/02/2020 12:22 PM CDT) Pathologist Sig nature Ammonia 60 18 - 72 mol/L [facility] Specimen Blood Narrative Performed At Turbine Engine Assembler DEEPA Mota [facility] Performing Organization Address City/[facility]/Zipcode Phone Number [facility] [address] [place], [place] [phone] CENTER Blood culture (04/02/2020 12:08 PM CDT)Only the most recent of2 resultswithin the time period is included. Pathologist Sig nature Result No growth in 5 days [facility] Specimen Blood - Entire left upper arm (body stru cture) Performing Organization Address City/[facility]/Zipcode Phone Number [facility] [address] [place] [address] [place] EEG 12-26 HR Continuous Monitoring with Video (04/02/2020 6:32 AM CDT) Specimen Narrative Performed At Date of EE04/01/2020 to 04/02/2020 GE RIS DATE OF REPORT: 04/02/2020 ACC: [id number] EEG Number: [id number] Start time: 04/01/2020 @ 14:41 PM Stop time: 04/02/2020 @ 11:30 AM ICD-10: R56.9 CPT Code: 08930 HISTORY: 54 y.o. Female with ADHD, bipol [...] to 04/02/2020 DATE OF REPORT: 04/02/2020 ACC: [id number] EEG Number: [id number] Start time: 04/01/2020 @ 14:41 PM Stop time: 04/02/2020 @ 11:30 AM ICD-10: R56.9 CPT Code: 59347 HISTORY: 54 y.o. Female with ADHD, bipol [...] Attending Performing Organization Address City/State/Zipcode Phone Number RIS Vitamin B12 and Folate (04/01/2020 2:13 PM CDT) Pathologist Sig nature Vitamin B12 929 (H) 213 - 816 pg/mL [facility] Folate 15.80 >=7.00 ng/mL [facility] Specimen Blood Narrative Performed At Turbine Engine Assembler ID - NTP [facility] Performing Organization Address [facility] Phone Number [address] [address] CENTER TSH/Free T4 If Indicated (04/01/2020 2:13 PM CDT) Pathologist Sig nature TSH 0.057 (L) 0.350 - 4.940 uIU/mL [facility] Specimen Blood Narrative Performed At Turbine Engine Assembler ID - NTP [facility] Performing Organization Address [facility] Phone Number [address] [address] CENTER T4, free (04/01/2020 2:13 PM CDT) Pathologist Sig nature Free T4 1.19 0.70 - 1.48 ng/dL [facility] Specimen Blood Narrative Performed At Turbine Engine Assembler ID - NTP [facility] Performing Organization Address [facility] Phone Number [address] [address] CENTER PT/aPTT (04/01/2020 5:08 AM CDT) Pathologist Sig nature Protime 15.4 (H) 11.9 - 14.2 seconds [facility] INR 1.3 <=5.9 [facility] PTT 25.8 22.5 - 36.0 seconds [facility] Specimen Blood Narrative Performed At Effective 04/05/2019: PT Reference Range [facility] Change New: 11.9-14.2 Previous: 11.7-14.7 RECOMMENDED COUMADIN/WARFARIN INR THERAPY RANGES STANDARD DOSE: 2.0-3.0 Includes: PROPHYLAXIS for venous thrombosis, systemic embolization; TREATMENT for venous thrombosis and/or pulmonary embolus. HIGH RISK: Target INR is 2.5-3.5 for patients wiht mechanical heart valves. Performing Organization Address [facility] Phone Number [address] [phone] [place] Troponin I (04/01/2020 5:08 AM CDT) Pathologist Sig nature Troponin I 0.01 0.00 - 0.03 ng/mL [facility] Specimen Blood Narrative Performed At Troponin I (TnI) levels must be interpreted [facility] [facility]ENTER in the context of the [...] acidosis, acute neurological disease, and persistent tachyarrhythmia. Turbine Engine Assembler ID - [id number] Performing Organization Address [facility] Phone Number [address] [phone] [place] Creatine Kinase (CK) (04/01/2020 5:08 AM CDT) Pathologist Sig nature Total CK 79 29 - 200 U/L [facility] Specimen Blood Narrative Performed At [employer]er ID - ZAHRA M [facility] Performing Organization Address [facility] Phone Number [address] [phone] [place] ECG/EKG Interpretation (04/01/2020 4:51 AM CDT) Narrative Performed At Glendy Clayton MD 04/15/2020 3:33 PM ECG/EKG Interpretation Date/Time: 04/15/2020 3:33 PM Performed by: Glendy Clayton MD Authorized by: Arturo Downs MD The ECG was interpreted by ED physician. The ECG is in terpreted as sinus tachycardia. Rate is tachycardic. Heart rate is [address] segments normal. T waves normal. [place] is normal. Other findings include: prolonged QTc [...] the fo llowing conditions: respiratory failure and [employer] failure or compromise. Critical care was time [...] studies and re-evaluation of patient's condition. after 11/16/2019 Insurance Payer Benefit Plan / Subscriber ID Effective Dates Phone Addre ss Type Group MEDICARE MEDICARE A B [id number] 2005-[facility] Medicare t [place] MED[place]ID MEDICAID [place] [id number] 2017-[facility] t MEDICAID MEDICAID OF [id number] 2015-Present M bianca [place] Advance Directives For more information, please contact: [phone] Code Status Date Activated Date Inactivated Comments Full Code 04/01/2020 6:44 AM 04/16/2020 10:45 AM This code status was determined by: Patient Full Code 04/22/2016 12:20 PM 04/29/2016 5:47 PM This code status was determined by: Patient
--- OUTSIDE RECORDS SUMMARY | 2020-11-16 09:11 | XMS REPORT | Continuity of Care Document ---
:1965 Author Organization [facility] t Address [facility] Baker [address] [place] [id number] Care Team Providers Name Role Phone JANEEN Primary Care Physician Unavailable Maria M BETANCOURT Attending Clinician Rosa Maria RN, R Attending Clinician Unavailable Janeen MOYA Attending Clinician Sam BAER Attending Clinician Unavailable JANEEN Attending Clinician Unavailable MARIA M Attending Clinician Unavailable Guicho LEAVITT Attending Clinician KOREY Attending Clinician Unavailable Korey MOYA Attending Clinician Harrison BAER Attending Clinician Unavailable Forrest MOYA Attending Clinician [...] Source Number Date Date MEDICAREMEDICARE PART A [id number] 2005 MD Hawley AND 00:00:00 [id number]/11/2004-Pr [id number] , [place] [id number] 2018 MD Juan Antonio melendez TRADITIONALMEDICAID [place] 00:00:00 TRADITIONAL STAR PLUS [id number] esentMedicaid MEDICAREMEDICARE A [id number] [facility] RjabzdngUI8040/11/2004-Pr 00:00:00 - Medical esentMedicare Center [place] MEDICAIDMEDICAID [id number] [address] [facility] [id number] 2016 00:00:00 - Medical [facility] MEDICAIDMEDICAID [id number] [facility] [id number] 2014-P 00:00:00 - [facility] [place] Problems Condition Condition Condition Status Onset Resolution [...] Disease Active 2019- [facility] 5-25 [facility] - [...] Active Overview : MD jose r odell 05-29:IMPR Anderso 00:00: ESSION:1. 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 Manley in January 2019. 528 9 08:25HepC RNA PCR [facility] Undetecte d IU/mL (Undetec jassi) History of Past Illness Condition Condition Condition Status Onset Resolution Last Treating Co mments Source Name Details Category Date Date Treatment Clinician Date Leukocytos Leukocytos Disease Resolve 2020-04-08 2020-04-[address] is is d 5-28 00:00:00 13:20:47 [facility] - 00:[facility]: Medical 00 [place] Shortness Shortness Disease Resolve 2020-04-08 2020-04-[address] of breath of breath d 6-15 00:00:00 13:20:50 [facility] - [facility]: Medical 00 Center Abnormal Abnormal Disease Resolve 2019-11-27 2019-11-27 findings [...] on Acute on Disease Resolve 2019-11-27 2019-11-27 MD chronic chronic d 00:00:00 23:25:46 Douglas rso [...] anastrozole 2019-11 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 [place] FLUoxetine 2019- No 10mg QD Take 1 [...] Center daily. pregabalin 2019-0 2020- No 50mg [id number] Take [address] (LYRICA) 50 -01 04- [id number] by mouth 3 [facility] - MG capsule 05:02: 00:00 3D (three) Med ical 47 :00 times Center daily. dextroamphe 2019-0 2020- No 10mg Take [address] [address] tamine-amph 04-01-25 by mouth. Keyla kes - etamine 5 05:01: 00:00 Medical mg Tab 55 :00 Center FLUOXETINE, 0 2020- No 40mg [address] [facility] BULK, MISC 04-01 Miscellane Keyla kes - 05:01: 00:00 ous [...] 00:00: 00:00 tablet Medical tablet 00 :00 [place] anastrozole 2019- No Mucinous 1mg Take 1 [...] 00:00 300 mg Medical 00 :00 capsule [place] Paxil Paxil Yes Lea [address] Millender in the [facility] - morning [facility] Adderall Adderall Yes Lea [address] [facility] Risperdal Risperdal Yes Lea [address] [facility] [place] Yes Lea (450 mg) 1 CH I [...] Source Systolic blood 2020-04-16 06:55:00 115 mm[Hg] [facility] Diastolic blood 2020-04-16 06:55:00 75 mm[Hg] [facility] Heart rate 2020-04-16 06:55:00 104 /min [facility] Body temperature 2020-04-16 06:55:00 36.39 Mansi [facility] Respiratory rate 2020-04-16 06:55:00 16 /min [facility] Oxygen saturation in 2020-04-16 06:55:00 93 /min [facility] Arterial blood by Medical Ce ntjaguar Pulse oximetry Body weight 2020-04-04 10:17:00 91.899 kg [facility] BMI 2020-04-04 10:17:00 35.45 kg/m2 [facility] Body height 2020-04-01 13:00:00 161 cm [facility] Heart rate 2019-11-23 17:10:00 93 /min MD Georges jarrett Body temperature 2019-11-23 17:10:00 36.72 Mansi MD Hernan duncan Respiratory rate 2019-11-23 17:10:00 18 /min MD Hernna duncan Body weight 2019-11-23 17:10:00 92.8 kg MD Georges jarrett BMI 2019-11-23 17:10:00 35.80 kg/m2 MD Georges jarrett Procedures Procedure Date / Time Performing Clinician Source Performed RHYTHM STRIP - SCAN 2020-04-17 15:11:17 Provider, Roshni [facility] POCT-GLUCOSE METER 2020-04-15 22:05:00 Arturo Downs [facility] POCT-GLUCOSE METER 2020-04-15 12:44:00 Yareli Arturo [facility] POCT-GLUCOSE METER 2020-04-15 08:15:00 Yareli Arturo [facility] POCT-GLUCOSE METER 2020-04-14 21:19:00 Samantha Lanier [facility] POCT-GLUCOSE METER 2020-04-13 17:03:00 Lanier, Samantha Haskins [facility] POCT-GLUCOSE METER 2020-04-13 11:55:00 Lanier, Samantha Carranzan [facility] POCT-GLUCOSE METER 2020-04-13 08:22:00 Lanier, Samantha Carranzan [facility] POCT-GLUCOSE METER 2020-04-12 20:48:00 Lanier, Samantha Carranzan [facility] POCT-GLUCOSE METER 2020-04-12 17:18:00 Lanier, Samantha Carranzan [facility] POCT-GLUCOSE METER 2020-04-12 12:10:00 [facility] POCT-[facility]SE [facility]ER 2020-04-12 08:32:00 Lanier, Samantha Carranzan [facility] LITHIUM LEVEL 2020-04-12 04:26:00 Jairo Mata [facility] POCT-GLUCOSE METER 2020-04-11 21:49:00 Lanier, Samantha Carranzan [facility] POCT-GLUCOSE METER 2020-04-11 16:42:00 Lanier, Samantha Carranzan [facility] POCT-GLUCOSE METER 2020-04-11 10:52:00 Lanier, Samantha Carranzan [facility] POCT-GLUCOSE METER 2020-04-11 06:55:00 Lanier, Samantha Carranzan [facility] POCT-GLUCOSE METER 2020-04-10 20:46:00 Lanier, Samantha Carranzan [facility] POCT-GLUCOSE METER 2020-04-10 17:42:00 Lanier, Samantha Carranzan [facility] POCT-GLUCOSE METER 2020-04-10 11:07:00 Lanier, Samantha Carranzan [facility] POCT-GLUCOSE METER 2020-04-10 07:12:00 [facility]ier[facility] BASIC METABOLIC PANEL (7) 2020-04-10 03:58:00 Lanier, Samantha Haskins [facility] CBC W/PLT COUNT & AUTO 2020-04-10 03:58:00 Lanier, Samantha Haskins [facility] POCT-GLUCOSE METER 2020-04-09 21:30:00 Lanier, [facility] POCT-GLUCOSE METER 2020-04-09 17:05:00 [facility]ier[facility] POCT-GLUCOSE METER 2020-04-09 07:13:00 [facility]ier[facility] LITHIUM LEVEL 2020-04-09 04:06:00 [facility]ier[facility] POCT-GLUCOSE METER 2020-04-08 21:22:00 Lanier, Samantha [facility] POCT-GLUCOSE METER 2020-04-08 18:08:00 Lanier, Samantha [facility] POCT-GLUCOSE METER 2020-04-08 12:36:00 Lanier, [facility] COMPREHENSIVE METABOLIC 2020-04-08 03:42:00 [facility] CBC W/PLT COUNT & AUTO 2020-04-08 03:42:00 [facility] POCT-GLUCOSE METER 2020-04-07 21:08:00 [facility] POCT-GLUCOSE METER 2020-04-07 17:20:00 [facility] POCT-GLUCOSE METER 2020-04-07 12:02:00 [facility] POCT-GLUCOSE METER 2020-04-07 07:55:00 [facility] COMPREHENSIVE METABOLIC 2020-04-07 04:24:00 [facility] CBC W/PLT COUNT & AUTO 2020-04-07 04:24:00 [facility] POCT-GLUCOSE METER 2020-04-06 21:01:00 [facility] CT CHEST PE TEST DESIGN 2020-04-06 16:30:00 [facility] APTT 2020-04-06 13:47:00 [facility] POCT-GLUCOSE METER 2020-04-06 11:56:00 [facility] RESPIRATORY PANEL [facility] 2020-04-06 09:15:00 [facility] POCT-GLUCOSE METER 2020-04-06 07:41:00 [facility] COMPREHENSIVE METABOLIC 2020-04-06 03:34:00 [facility] APTT 2020-04-06 03:34:00 [facility] CBC W/PLT COUNT & AUTO 2020-04-06 03:34:00 [facility] POCT-GLUCOSE METER 2020-04-05 23:20:00 [facility] URINE CULTURE 2020-04-05 19:02:00 [facility] URINALYSIS W/ REFLEX URINE 2020-04-05 19:02:00 [facility] D-DIMER 2020-04-05 18:48:00 [facility] BASIC METABOLIC PANEL (7) 2020-04-05 18:48:00 [facility] MAGNESIUM 2020-04-05 18:48:00 [facility] PHOSPHORUS 2020-04-05 18:48:00 [facility] CBC W/PLT COUNT & AUTO 2020-04-05 18:48:00 [facility] SARS-COV2/RT-PCR ([facility] & 2020-04-05 17:02:00 Melody Burton [facility] - REF LABS) [facility] POCT-GLUCOSE METER 2020-04-05 16:51:00 Micheal [facility] XR CHEST 1 VIEW 2020-04-05 16:46:00 Micheal [facility] - PORTABLE/BEDSIDE [facility] LACTIC ACID, VENOUS 2020-04-05 16:24:00 Micheal [facility] ECG 12-LEAD 2020-04-05 16:08:18 [facility] ECG 12-LEAD 2020-04-05 13:27:01 [facility] POCT-GLUCOSE METER 2020-04-05 11:22:00 [facility] POCT-GLUCOSE METER 2020-04-05 08:11:00 [facility] POCT-GLUCOSE METER 2020-04-04 20:58:00 [facility] POCT-GLUCOSE METER 2020-04-04 17:52:00 [facility] HEPATIC FUNCTION PANEL 2020-04-04 15:21:00 [facility] CBC W/PLT COUNT & AUTO 2020-04-04 15:20:00 [facility] DIFFERENTIAL [facility] REPORT OF PROCEDURE - 2020-04-04 13:41:29 Provider [facility] ENDOSCOPY SCAN Scanning [facility] POCT-GLUCOSE METER 2020-04-04 11:41:00 [facility] POCT-GLUCOSE METER 2020-04-04 08:55:00 [facility] BASIC METABOLIC PANEL (7) 2020-04-04 05:30:00 Chantell Larson [facility] MAGNESIUM 2020-04-04 05:30:00 [facility] PHOSPHORUS 2020-04-04 05:30:00 [facility] CBC W/PLT COUNT & AUTO 2020-04-04 05:30:00 Kirit De La Cruz [facility] POCT-GLUCOSE METER 2020-04-03 21:53:00 [facility] POCT-GLUCOSE METER 2020-04-03 17:49:00 [facility] POCT-GLUCOSE METER 2020-04-03 11:26:00 [facility] POCT-GLUCOSE METER 2020-04-03 07:24:00 [facility] US ABDOMEN LIMITED 2020-04-03 05:45:00 [facility] HEPATIC FUNCTION PANEL 2020-04-03 03:34:00 [facility] BASIC METABOLIC PANEL (7) 2020-04-03 03:34:00 Chantell Larson [facility] MAGNESIUM 2020-04-03 03:34:00 [facility] PHOSPHORUS 2020-04-03 03:34:00 [facility] HEMOGLOBIN A1C 2020-04-03 03:34:00 [facility] CBC W/PLT COUNT & AUTO 2020-04-03 03:34:00 Kirit De La Cruz [facility] POCT-GLUCOSE METER 2020-04-02 21:09:00 [facility] MR BRAIN WITHOUT IV 2020-04-02 20:22:[address] [facility] POCT-GLUCOSE METER 2020-04-02 17:17:00 [facility] RAPID DRUG SCREEN, URINE 2020-04-02 13:14:00 Lorene Mcclure [facility] DRUG SCREEN, URINE, 2020-04-02 13:12:00 Lorene Mcclure [facility] AMMONIA 2020-04-02 12:22:00 Denisse [facility] BLOOD CULTURE 2020-04-02 12:08:00 Denisse [facility] POCT-GLUCOSE METER 2020-04-02 11:00:00 Micheal [facility] POCT-GLUCOSE METER 2020-04-02 08:33:00 [facility] HR CONTINUOUS 2020-04-02 06:32:00 Glendy Clayton [facility] - MONITORING WITH VIDEO Medical Ce nter BASIC METABOLIC PANEL (7) 2020-04-02 04:43:00 Chantell Larson [facility] CBC W/PLT COUNT & AUTO 2020-04-02 04:43:00 Denisse [facility] POCT-GLUCOSE METER 2020-04-02 01:53:00 Denisse [facility] POCT-GLUCOSE METER 2020-04-01 20:44:00 Denisse [facility] HEPATIC FUNCTION PANEL 2020-04-01 18:46:00 Denisse [facility] POCT-GLUCOSE METER 2020-04-01 17:57:00 Denisse [facility] TSH/FREE T4 IF INDICATED 2020-04-01 14:13:00 Denisse [facility] VITAMIN B12 AND FOLATE 2020-04-01 14:13:00 Denisse [facility] LITHIUM LEVEL 2020-04-01 14:13:00 Denisse [facility] T4, FREE 2020-04-01 14:13:00 Denisse [facility] BLOOD CULTURE 2020-04-01 14:11:00 Denisse [facility] POCT-GLUCOSE METER 2020-04-01 12:22:00 Kirit De La Cruz [facility] ECG 12-LEAD 2020-04-01 08:31:07 Unknown, Hl7 Doctor [facility] SARS-COV2/RT-PCR ([facility] & 2020-04-01 05:24:00 Forrest, [facility] REF LABS) [facility] BASIC METABOLIC PANEL (7) 2020-04-01 05:08:00 Forrest, [facility] MAGNESIUM 2020-04-01 05:08:00 Forrest, [facility] CREATINE KINASE (CK) 2020-04-01 05:08:00 Forrest, [facility] PHOSPHORUS 2020-04-01 05:08:00 Forrest, [facility] PT/APTT 2020-04-01 05:08:00 Forrest, [facility] TROPONIN I 2020-04-01 05:08:00 Chantell Larson [facility] CBC W/PLT COUNT & AUTO 2020-04-01 05:08:00 Forrest, [facility] URINALYSIS W/ REFLEX URINE 2020-04-01 05:04:00 Forrest, [facility] C [facility] XR CHEST 1 VIEW 2020-04-01 04:58:00 Forrest, [facility] PORTABLE/BEDSIDE [facility] CRITICAL CARE 2020-04-01 04:51:54 Forrest, [facility] ED ECG INTERPRETATION 2020-04-01 04:51:54 [facility], [facility] Plan of Care Planned Activity Planned Date Details Comments Source Future Scheduled 2020-07-09 INFLUENZA VACCINE (#1) [facility] Test 00:[facility]:00 [code = INFLUENZA Medical Ce nter VACCINE (#1)] Future Scheduled 2020-04-[address] [facility] 00:[facility] breast (procedure) [code = 313107777] Future Scheduled [address] [facility] - Test 00:00:00 (procedure) [code = Medical Center 22477401] Future Scheduled 2006-10-[address] [facility] - Test 00:00:00 WELLNESS (YEAR 2 or Medical Center FIRST YEAR if no IPPE) [code = MEDICARE ANNUAL WELLNESS (YEAR 2 or FIRST YEAR if no IPPE)] Future Scheduled [address] [facility] - Test 00:00:00 [facility] cervix (procedure) [code = 929718383] Future Scheduled [address] [facility] - Test 00:00:00 0-64 YRS (1 of 1 - Medical C enter PPSV23) [code = PNEUMOCOCCAL VACCINE 0-64 YRS (1 of 1 - PPSV23)] Future Scheduled [address] - Test 00:00:00 [facility] colon (procedure) [code = 232086587] Encounters Start End Encounter Admission Attending Care Care Encounter Source Date/Time Date/Time Type Type Clinicians Facility Department ID 2020-08-20 2020-08-20 Outpatient [facility]LMLC [facility] [id number] [facility] 2020-08-18 2020-08-18 Outpatient STLMLC STLMLC [id number] [facility] 2020-08-16 2020-08-16 Outpatient [facility]ML[facility] [id number] [facility] 2020-08-07 2020-08-07 Outpatient [facility]LMLC [facility] [id number] [facility] 2020-07-09 2020-07-09 Outpatient STLMLC STLMLC [id number] [facility] 2020-06-13 2020-06-13 [facility] [id number] 11:00:00 11:00:00 [facility] Medicine Outpati ent Clinics 2020-05-24 2020-05-24 Outpatient AWILDA VERNON MDA MDA [id number] MD 00:00:00 00:00:00 NEDA melendez 2020-05-23 2020-05-23 Outpatient AWILDA VERNON MDA MDA [id number] 00:00:00 00:00:00 NEDA arshad n 2020-05-13 2020-05-13 Outpatient AWILDA SULLIVAN MDA MDA [id number] MD 00:00:00 00:00:00 FAUSTINO melendez 2020-05-07 2020-05-07 Outpatient AWILDA VERNON MDA MDA [id number] 00:00:00 00:00:00 NEDA Su so n 2020-05-07 2020-05-07 Outpatient AWILDA VERNON MDA MDA [id number] 00:00:00 00:00:00 NEDA arshad n 2020-04-30 2020-04-30 Outpatient AWILDA POLANCO MDA MDA [id number] 09:15:00 23:59:00 LAMBERTO Georges jeancarlos n 2019-10-18 2019-10-18 [facility] [id number] 08:20:00 08:20:00 [facility] 2019-10-10 2019-10-10 [facility] [id number] 16:00:00 16:00:00 [facility] Results Test Description Test Time Test Comments Results Result Comments Source POC-Glucose meter 2020-04-15 22:17:00 Test Item Value Reference Range Interpretation Comme nts POC-Glucose Meter (test code = 124 mg/dL 70-110 H : TESTED AT [facility] [address] [id number]) [facility], 770 30: Weed Inspector/Techni janel ID = [id number] for RAY ERVIN Lab Interpretation (test code = Abnormal 40130-4) [facility] [id number] 22:17:00 Test Item Value Reference Range Interpretation Comments POC-GLUCOSE METER 124 mg/dL 70-110 H : TESTED A T [facility] [address] (BEAKER) (test code = ALEKSANDER R [facility], 1538) [address]88: Weed Inspector/Techni janel ID = [id number] for RAY MCCLELLAN POCT-GLUCOSE [id number] 12:55:00 Test Item Value Reference Range Interpretation Comments POC-GLUCOSE METER 189 mg/dL 70-110 H : TESTED A T [facility] [address] ([facility] (test code = [facility], 153) [address]: Weed Inspector/Techni janel ID = [id number] for SERGIO BETH, SHELLE POCT-GLUCOSE [id number] 08:26:00 Test Item Value Reference Range Interpretation Comments POC-GLUCOSE METER 123 mg/dL 70-110 H : TESTED A T [facility] [address] ([facility]) (test code = [facility], 153) 09763: Weed Inspector/Techni janel ID = [id number] for JOE BINGHAM POCT-GLUCOSE [id number] 21:31:00 Test Item Value Reference Range Interpretation Comments POC-GLUCOSE METER 176 mg/dL 70-110 H : Notified RN/MD: ([facility]) (test code = TESTED AT [facility] [address] 1538) [facility], [address]: Weed Inspector/Techni janel ID = [id number] for LATLATRICE ZAYDA ICE [place] [id number] 11:45:00 Test Item Value Reference Range Interpretation Comments [place] Level (test code = 0.6 mmol/L 0.8-1.2 L 25559-1) Lab Interpretation (test code = Abnormal 76351-1) [facility] [id number] 11:45:00 Test Item Value Reference Range Interpretation Comments LITHIUM LEVEL (BEAKER) (test code 0.6 mmol/L 0.8-1.2 L = 630) POCT-GLUCOSE [id number] 17:15:00 Test Item Value Reference Range Interpretation Comments POC-GLUCOSE METER 128 mg/dL 70-110 H : TESTED A T [facility] [address] ([facility]) (test code = [facility], 153) 40935: Weed Inspector/Techni janel ID = [id number] for SERGIO BETH, SHELLE POCT-GLUCOSE [id number] 12:20:00 Test Item Value Reference Range Interpretation Comments POC-GLUCOSE METER 108 mg/dL 70-110 : TESTED A T [facility] [address] ([facility]) (test code = [facility], 153) 39941: Weed Inspector/Techni janel ID = [id number] for Sm ith, Elaina POCT-GLUCOSE [id number] 08:34:00 Test Item Value Reference Range Interpretation Comments POC-GLUCOSE METER 115 mg/dL 70-110 H : TESTED A T [facility] [address] (BEAKER) (test code = [facility], 1538) [address]37: Weed Inspector/Techni janel ID = [id number] for Sm ith, Elaina POCT-GLUCOSE [id number] 20:59:00 Test Item Value Reference Range Interpretation Comments POC-GLUCOSE METER 152 mg/dL 70-110 H : TESTED A T [facility] 67[address] (AKER) (test code = [facility], 1538) 55267: Weed Inspector/Techni janel ID = [id number] for BA ISH, EMBER POCT-GLUCOSE [id number] 17:29:00 Test Item Value Reference Range Interpretation Comments POC-GLUCOSE METER 103 mg/dL 70-110 : TESTED A T [facility] 6720 (BEAKER) (test code [facility], = 1538) [address]9929: Weed Inspector/Techni janel ID = [id number] for TSEG GAI, TSIGHEREDA POCT-GLUCOSE [id number] 12:22:00 Test Item Value Reference Range Interpretation Comments POC-GLUCOSE METER 204 mg/dL 70-110 H : Notified RN/MD: TESTED (BEAKER) (test code AT [facility] [address] [facility] = 1538) [facility], 770 30: Weed Inspector/Techni janel ID = [id number] for TSEG GAI, TSIGHEREDA POCT-GLUCOSE [id number] 08:43:00 Test Item Value Reference Range Interpretation Comments POC-GLUCOSE METER 132 mg/dL 70-110 H : TESTED A T [facility] 6720 (BEAKER) (test code [facility], = 1538) 93696: Weed Inspector/Techni janel ID = [id number] for TSEG GAI, TSIGHEREDA POCT-GLUCOSE [id number] 07:13:00 Test Item Value Reference Range Interpretation Comments POC-GLUCOSE METER 200 mg/dL 70-110 H : TESTED A T [facility] 6720 (BEAKER) (test code = [facility], 1538) [address]: Weed Inspector/Techni janel ID = [id number] for OC FELICIA, KULDIP POCT-GLUCOSE [id number] 16:54:00 Test Item Value Reference Range Interpretation Comments POC-GLUCOSE METER 103 mg/dL 70-110 : TESTED A T [facility] 67[address] (BEAKER) (test code = [facility], 1538) 36088: Weed Inspector/Techni janel ID = [id number] for HU NT, KATIE POCT-GLUCOSE [id number] 11:03:00 Test Item Value Reference Range Interpretation Comments POC-GLUCOSE METER 155 mg/dL 70-110 H : TESTED A T [facility] 6720 (BEAKER) (test code = [facility], 1538) 61306: Weed Inspector/Techni janel ID = [id number] for HU NT, KATIE POCT-GLUCOSE [id number] 07:06:00 Test Item Value Reference Range Interpretation Comments POC-GLUCOSE METER 129 mg/dL 70-110 H : TESTED A T [facility] 6720 (BEAKER) (test code = [facility], [facility]) 46204: Weed Inspector/Techni janel ID = [id number] for HU NT, KATIE POCT-GLUCOSE [id number] 20:59:00 Test Item Value Reference Range Interpretation Comments POC-GLUCOSE METER 167 mg/dL 70-110 H : TESTED A T [facility] 6720 (BEAKER) (test code = [facility], 1538) 27265: Weed Inspector/Techni janel ID = [id number] for KE BE, SAUDATU POCT-GLUCOSE [id number] 17:53:00 Test Item Value Reference Range Interpretation Comments POC-GLUCOSE METER 185 mg/dL 70-110 H : TESTED A T [facility] 6720 (BEAKER) (test code = [facility], 1538) 86757: Weed Inspector/Techni janel ID = [id number] for Ma thew, Remyia POCT-GLUCOSE [id number] 11:18:00 Test Item Value Reference Range Interpretation Comments POC-GLUCOSE METER 145 mg/dL 70-110 H : TESTED A T [facility] 6720 (BEAKER) (test code = [facility], 1538) 49788: Weed Inspector/Techni janel ID = [id number] for Ma thew, Remyia POCT-GLUCOSE [id number] 07:23:00 Test Item Value Reference Range Interpretation Comments POC-GLUCOSE METER 105 mg/dL 70-110 : TESTED A T [facility] 6720 (BEAKER) (test code = [place], 1538) 38698: Weed Inspector/Techni janel ID = [id number] for Ingris Barcenasyia Basic Metabolic [id number] 04:32:00 Test Item Value Reference Range Interpretation Comments Sodium (test code = 143 meq/L 885-401 4043-2) Potassium (test code = 4.0 meq/L 3.5-5.1 2823-3) Chloride (test code = 111 meq/L 98-107 H 2075-0) CO2 (test code = 25 meq/L 22-29 8-9) BUN (test code = 11 mg/dL 7-21 3094-0) Creatinine (test code 0.76 mg/dL 0.57-1.25 = 2160-0) Glucose (test code = 106 mg/dL 70-105 H 2345-7) Calcium (test code = 9.6 mg/dL 8.4-10.2 96524-9) EGFR (test code = 79 mL/min/1.73 [place] [address]-5) NOT ACCURATE CREATININE CLEARANCE IN PREDICTING GLOMERULAR FILTRATION RATE . ESTIMATED GFR I S NOT APPLICABLE FOR DIALYSIS PATIENTS. VIKKI (test code = VIKKI) Weed Inspector ID - ZAHRA M Lab Interpretation Abnormal (test code = 62995-6) [facility] [id number] 04:32:00 Test Item Value Reference Range Interpretation [...] S NOT APPLICABLE FOR DIALYSIS PATIEN TS. Weed Inspector ID - ZAHRA MCBC with platelet count + automated [id number] 04:10:00 Test Item Value Reference Range Interpretation [...] K/CU MM L MPV (test code = 90792-8) 12.3 fL 9.4-12.3 nRBC (test code = [...] 2801) Lab Interpretation (test code = Abnormal 93186-1) [facility] W/PLT COUNT & AUTO [id number] 04:10:00 Test Item Value Reference Range Interpretation [...] PERCENT (BEAKER) (test code = 2801) POCT-GLUCOSE [id number] 21:41:00 Test Item Value Reference Range Interpretation Comments POC-GLUCOSE METER 130 mg/dL 70-110 H : TESTED A T [facility] 6720 (BEAKER) (test code = [facility], 1538) 69910: Weed Inspector/Techni janel ID = [id number] for SA NTOS, UYEN POCT-GLUCOSE [id number] 17:17:00 Test Item Value Reference Range Interpretation Comments POC-GLUCOSE METER 107 mg/dL 70-110 : TESTED A T [facility] 6720 ([facility] [place] (test code = [facility], [facility]8) 02793: Weed Inspector/Techni janel ID = [id number] for CA STRO, JONAH LITHIUM [id number] 13:12:00 Test Item Value Reference Range Interpretation Comments LITHIUM LEVEL (BEAKER) (test code 0.5 mmol/L 0.8-1.2 L = 630) POCT-GLUCOSE [id number] 07:24:00 Test Item Value Reference Range Interpretation Comments POC-GLUCOSE METER 124 mg/dL 70-110 H : TESTED A T [facility] 6720 (BEAKER) (test code = [facility], [facility]) 19708: Weed Inspector/Techni janel ID = [id number] for CA STRO, JONAH POCT-GLUCOSE [id number] 21:34:00 Test Item Value Reference Range Interpretation Comments POC-GLUCOSE METER 174 mg/dL 70-110 H : TESTED A T [facility] 6720 (BEAKER) (test code = [facility], 1538) 66561: Weed Inspector/Techni janel ID = [id number] for DE NNIS, BING POCT-GLUCOSE [id number] 18:20:00 Test Item Value Reference Range Interpretation Comments POC-GLUCOSE METER 125 mg/dL 70-110 H : TESTED A T [facility] 6720 ([facility] [place]) (test code = [facility], 1538) 37405: Weed Inspector/Techni janel ID = [id number] for LUCAS LOWE POCT-GLUCOSE [id number] 12:47:00 Test Item Value Reference Range Interpretation Comments POC-GLUCOSE METER 100 mg/dL 70-110 : TESTED [address] [facility] 6720 (BEAKER) (test code = [place], 1538) 31370: Weed Inspector/Techni janel ID = [id number] for LUCAS LOWE Comprehensive metabolic [id number] 04:30:00 Test Item Value Reference Range Interpretation Comments Protein, Total (test 7.5 6.0- 8.3 gm/dL code = 2885-2) Albumin (test code = 3.7 g/dL 3.5-5 98601-4) Alkaline Phosphatase 94 U/L 40-150 (test code = 6768-6) Total Bilirubin (test 0.9 mg/dL 0.2-1.2 code = 1975-2) Sodium (test code = 141 meq/L 964-163 0126-2) Potassium (test code = 4.0 meq/L 3.5-5.1 2823-3) Chloride (test code = 110 meq/L 98-107 H 2075-0) CO2 (test code = 23 meq/L 22-29 2028-9) BUN (test code = 10 mg/dL 7-21 3094-0) Creatinine (test code 0.72 mg/dL 0.57-1.25 = 2160-0) Glucose (test code = 123 mg/dL 70-105 H 2345-7) Calcium (test code = 9.6 mg/dL 8.4-10.2 75332-6) AST (test code = 28 U/L 5-34 1920-8) ALT (test code = 39 U/L 6-55 1742-6) EGFR (test code = 84 mL/min/1.[place] [address]-6) NOT ACCURATE CREATININE CLEARANCE IN PREDICTING GLOMERULAR FILTRATION RATE . ESTIMATED GFR I S NOT APPLICABLE FOR DIALYSIS PATIENTS. VIKKI (test code = VIKKI) Weed Inspector ID - PIAYA L Lab Interpretation Abnormal (test code = 11624-0) [facility] CampusCOMPREHENSIVE METABOLIC [id number] 04:30:00 Test Item Value Reference Range Interpretation [...] S NOT APPLICABLE FOR DIALYSIS PATIEN TS. Weed Inspector ID - PIAYA LCBC W/PLT COUNT & AUTO [id number] 03:57:00 Test Item Value Reference Range Interpretation [...] PERCENT (BEAKER) (test code = 2801) POCT-GLUCOSE [id number] 21:19:00 Test Item Value Reference Range Interpretation Comments POC-GLUCOSE METER 111 mg/dL 70-110 H : TESTED [address] [facility] 6720 (BEAKER) (test code = [place], 1538) 68111: Weed Inspector/Techni janel ID = [id number] for Neda Pineda POCT-GLUCOSE [id number] 17:31:00 Test Item Value Reference Range Interpretation Comments POC-GLUCOSE METER 106 mg/dL 70-110 : TESTED A T [facility] 6720 (BEAKER) (test code = [facility], 1538) 92350: Weed Inspector/Techni janel ID = [id number] for Caleb Barcenas Blood [id number] 14:00:00 Test Item Value Reference Range Interpretation Comments Result (test code = No growth in 5 days 6463-4) [facility] CampusBLOOD [id number] 14:00:00 Test Item Value Reference Range Interpretation Comments CULTURE (BEAKER) (test No growth in 5 days code = 1095) POCT-GLUCOSE [id number] 12:14:00 Test Item Value Reference Range Interpretation Comments POC-GLUCOSE METER 113 mg/dL 70-110 H : TESTED A T [facility] 6720 (BEAKER) (test code = [facility], 1538) 53015: Weed Inspector/Techni janel ID = [id number] for Caleb Barcenas POCT-GLUCOSE [id number] 08:06:00 Test Item Value Reference Range Interpretation Comments POC-GLUCOSE METER 133 mg/dL 70-110 H : TESTED A T [facility] 6720 (BEAKER) (test code = [facility], 1538) 12989: Weed Inspector/Techni janel ID = [id number] for Caleb Barcenas COMPREHENSIVE METABOLIC [id number] 05:57:00 Test Item Value Reference Range Interpretation [...] S NOT APPLICABLE FOR DIALYSIS PATIEN TS. Weed Inspector ID - PIAYA LCBC W/PLT COUNT & AUTO [id number] 05:15:00 Test Item Value Reference Range Interpretation [...] PERCENT (BEAKER) (test code = 2801) POCT-GLUCOSE [id number] 21:12:00 Test Item Value Reference Range Interpretation Comments POC-GLUCOSE METER 197 mg/dL 70-110 H : [facility] (test code = [facility], 1538) 40463: Weed Inspector/Techni janel ID = [id number] for SUMMER OSWALD BLOOD [id number] 20:00:00 Test Item Value Reference Range Interpretation Comments CULTURE (BEAKER) (test No growth in 5 days code = 1095) Respiratory Panel [id number] 19:01:00 Test Item Value Reference Range Interpretation Comments Human Metapneumovirus Not detected Not detected, (test code = 44378-9) Equivocal Rhinovirus (test code = Not detected Not detected, 44755-7) Equivocal INFLUENZA A (NO Not detected Not detected, SUBTYPE) (test code = Equivocal 36515-5) Influenza A subtype H1 (test code = 22758-5) Influenza A Subtype H3 (test code = 23129-6) Influenza A Subtype H1-2009 (test code = 16124-3) Influenza B (test code Not detected Not detected, = 44134-3) Equivocal Respiratory Syncytial Not detected Not detected, Virus (test code = Equivocal 32920-7) Parainfluenza Virus 1 Not detected Not detected, (test code = 98368-9) Equivocal Parainfluenza Virus 2 Not detected Not detected, (test code = 22847-0) Equivocal Parainfluenza virus 3 Not detected Not detected, (test code = 31061-8) Equivocal Parainfluenza Virus 4 Not detected Not detected, (test code = 58280-1) Equivocal Adenovirus (test code = Not detected Not detected, 80477-5) Equivocal Coronavirus 229E (test Not detected Not detected, code = 89072-8) Equivocal Coronavirus HKU1 (test Not detected Not detected, code = 97614-4) Equivocal Coronavirus NL63 (test Not detected Not detected, code = 73058-2) Equivocal Coronavirus OC43 (test Not detected Not detected, code = 67355-0) Equivocal Bordetella Pertussis Not detected Not detected, (test code = 63555-8) Equivocal Chlamydophila Not detected Not detected, Pneumoniae (test code = Equivocal 44697-5) Mycoplasma Pneumoniae Not detected Not detected, (test code = 29866-9) Equivocal VIKKI (test code = VIKKI) Other viruses and bacteria not targeted by this PCR panel cannot be excluded; therefore clinical correlation and follow up of serology, culture results, and other molecular studies is required. The results are not intended to be used as the sole means for clinical diagnosis or patient management decisions. This sample was tested at the [facility] Molecular Diagnostics Laboratory using the PlinkArray Respiratory Panel. It is FDA cleared and has been verified and approved by the [facility] Molecular Diagnostics Laboratory for clinical use on nasopharyngeal swab specimens. The performance of the FilmArray RP has not been established in individuals who received influenza vaccine. Recent administration of a nasal influenza vaccine may cause false positive results for Influenza A and/orInfluenza B. [facility] [id number] 19:01:00 Test Item Value Reference Range Interpretation [...] decisions. This sample was tested at the [facility] Molecular Diagnostics Laboratory using the Trendr Respiratory Panel. It is FDA cleared and has been verified and approved by the [facility] Molecular Diagnostics Laboratory for [...] MDReport Verified Date/Time: 04/06/2020 16:45:26 Reading Location: [address] Transitional Reading Room CT chest for [...] MDReport Verified Date/Time: 04/06/2020 16:45:26 Reading Location: [address] Transitional [facility] 14:25:00 Test Item Value Reference Range Interpretation Comments PTT (test code = 31.0 22.5- 36.0 seconds 58393-5) VIKKI (test code = VIKKI) 6 hours after starting heparin infusion and as indicated per sliding scale Lab Interpretation (test Normal code = 22858-1) [facility]APTT[facility] 14:25:00 Test Item Value Reference Range Interpretation Comments PARTIAL THROMBOPLASTIN TIME 31.0 seconds 22.5-36.0 (BEAKER) (test code = 760) 6 hours after starting heparin infusion and as indicated per sliding scalePOCT- GLUCOSE [id number] 12:08:00 Test Item Value Reference Range Interpretation Comments POC-GLUCOSE METER 135 mg/dL 70-110 H : TESTED A T [facility] 6720 (BEAKER) (test code = [facility], 1538) 91727: Weed Inspector/Techni janel ID = [id number] for PO IRIER JEREMY ECG 12 [id number] 11:22:15Interface, External Ris In - 04/06/2020 11:22 AM CDTVentricular Rate 119 BPMAtrial Rate 119 BPMP-R Interval 128 msQRS Duration 84 msQ-T Interval 308 msQTC Calculation(Bazett) 433 msP Ider 68 degreesR Ider 64 degreesT Ider 55 degreesSinus tachycardiaOtherwise normal ECGConfirmed by MD ESTELLE, ELVIA ([id number]) on 04/06/2020 11:22:13 [facility] [id number] 07:52:00 Test Item Value Reference Range Interpretation Comments POC-GLUCOSE METER 128 mg/dL 70-110 H : TESTED A T [facility] 6720 (BEAKER) (test code = [place], 1538) 08044: Weed Inspector/Techni janel ID = [id number] for JEREMY VILLEDA COMPREHENSIVE METABOLIC [id number] 04:36:00 Test Item Value Reference Range Interpretation [...] S NOT APPLICABLE FOR DIALYSIS PATIEN TS. Weed Inspector ID - PIAYA [id number] 04:10:00 Test Item Value Reference Range Interpretation Comments PARTIAL THROMBOPLASTIN TIME 29.3 seconds 22.5-36.0 (BEAKER) (test code = 760) Prior to initiating heparinCBC W/PLT COUNT & AUTO [id number] 04:02:00 Test Item Value Reference Range Interpretation [...] = 2801) Urinalysis w/Microscopic + Reflex to [id number] 00:18:00 Test Item Value Reference Range Interpretation Comments Color, UA (test code = Yellow 5778-6) Clarity, UA (test code = Clear 5767-9) Specific [place], UA 1.015 1.001-1.035 (test code = 5811-5) pH, UA (test code = 7.0 5.0-8.0 5803-2) Protein, UA (test code = Negative Negative 80889-8) Glucose, UA (test code = Negative Negative 365) Ketones, UA (test code = Negative Negative 2514-8) Bilirubin, UA (test code Negative Negative = 14539-6) Blood, UA (test code = Negative Negative 47618-5) Nitrite, UA (test code = Negative Negative 5802-4) Leukocytes, UA (test code Moderate Negative A = 5799-2) Urobilinogen, UA (test 6.0 mg/dL 0.2-1 H code = 39055-2) RBC, UA (test code = <1 /HPF 03707-7) WBC, UA (test code = 14 /HPF 5821-4) Bacteria, UA (test code = Occasional 11479-3) Squam Epithel, UA (test 5 /HPF code = 72606-6) Specimen Source (test code = 2795) VIKKI (test code = VIKKI) Weed Inspector ID - [auto]Weed Inspector ID - ann Lab Interpretation (test Abnormal code = 22755-6) [facility]/ REFLEX URINE [id number] 00:18:00 Test Item Value Reference Range Interpretation [...] = 516) SOURCE(BEAKER) (test code = 2795) Weed Inspector ID - [auto]Weed Inspector ID - hankPOCT-GLUCOSE [id number] 23:31:00 Test Item Value Reference Range Interpretation Comments POC-GLUCOSE METER 137 mg/dL 70-110 H : TESTED A T [facility] 6720 (BEAKER) (test code = [place], 1538) 98960: Weed Inspector/Techni janel ID = [id number] for CH UA, HENRISON [id number] 19:18:00 Test Item Value Reference Range Interpretation Comments Magnesium (test code = 1.6 mg/dL 1.6-2.6 32222-1) VIKKI (test code = VIKKI) Weed Inspector ID - DB Lab Interpretation (test Normal code = 65325-4) [facility] CampusPhosphorus2020-05-29 19:18:00 Test Item Value Reference Range Interpretation Comments Phosphorus (test code = 2.9 mg/dL 2.3-4.7 2777-1) VIKKI (test code = VIKKI) Weed Inspector ID - DB Lab Interpretation (test Normal code = 73554-1) [facility] CampusPHOSPHORUS2020-05-29 19:18:00 Test Item Value Reference Range Interpretation Comments PHOSPHORUS (BEAKER) (test code = 2.9 mg/dL 2.3-4.7 604) Weed Inspector ID - [id number] 19:18:00 Test Item Value Reference Range Interpretation Comments MAGNESIUM (BEAKER) (test code = 1.6 mg/dL 1.6-2.6 627) Weed Inspector ID - DBBASIC METABOLIC [id number] 19:18:00 Test Item Value Reference Range Interpretation [...] S NOT APPLICABLE FOR DIALYSIS PATIEN TS. Weed Inspector ID - [id number] 19:09:00 Test Item Value Reference Range Interpretation Comments D-Dimer, Quant (test code 0.89 <0.50 MG/L FEU H = 96267-6) VIKKI (test code = VIKKI) Intended Use: [...] range. Lab Interpretation (test Abnormal code = 81293-1) [facility]2020-04-05 19:09:00 Test Item Value Reference Range Interpretation Comments SARS-COV2/RT-PCR Not Detected Not Detected, (test code = Negative 20381-8) SARS-COV-2 [facility] PERFORMING LAB (test code = 19561-3) VIKKI (test code = Negative results do [...] of the Act. Fact Sheet for Healthcare Providers:https://www.[employer]/Documents/Xper t%20Xpress%20SARS%20CoV- 2/Fact%20Sheets/302-3802 %59OUIS-WME-6%20HEALTHCA RE%20PROVIDERS%20FACT%20 SHEET.pdf Fact Sheet for Healthcare Patients:https://www.[employer]/Documents/Xpert %20Xpress%20SARS%20CoV-2 /Fact%20Sheets/302-3801% 12MAEO-AQY-0%20PATIENT%2 0FACT%20SHEET.pdf Performing Laboratory:[facility] [place] [address] [facility] CampusD-[id number] 19:09:00 Test Item Value Reference Range Interpretation [...] of thrombosis is within 95-100% range. SARS-COV2/RT-PCR ([facility])2020-04-05 19:09:00 Test Item Value Reference Range Interpretation Comments SARS-COV2/RT-PCR (test Not Detected Not Detected, Negative code = 1716627) SARS-COV-2 PERFORMING LAB [facility] (test code = 1352887) Negative results do not preclude SARS-CoV-2 infection [...] of the Act.Fact Sheet for Healthcare Pro viders:https://www.[employer]/Documents/Xpert%20Xpress%20SARS%20CoV-2/Fact%20Sh eets/302-7062%68WNMS-ROG-1%20HEALTHCARE%20PROVIDERS%20FACT%20SHEET.pdfFact Sheet for Healthcare Patients:https://www.[employer]/Documents/Xpert%20Xpress%20SARS%20CoV-2/Fact%20Sheets/3023801%20SARS-COV -2%20PATIENT%20FACT%20SHEET.pdfPerforming Laboratory:[place] [address], [place] [address]GLV W/PLT COUNT & AUTO DIFFERENTIAL 2020-04-05 19:01:00 [...] = 2801) RAD, CHEST, 1 VIEW, NON [id number] 17:16:00Reason for exam:->sob, feverShould this be performed at the bedside?->YesFINAL REPORT TECHNIQUE: Frontal chest radiograph dated 04/05/2020. CLINICAL HISTORY: SOB, Fever COMPARISON STUDY: Chest radiograph dated 04/01/2020 IMPRESSION:Endotracheal and enteric tubes have been removed. Lungs are clear. No pleural effusion or pneumothorax. Cardiomediastinalsilhouette is normal in size. No pulmonary edema. No fracture. Signed: Douglas Hale[place] V erified Date/Time: 04/05/2020 17:16:45 Reading Location: [address] Transitional Reading Room XR chest 1 view portable / [id number] 17:16:00 Interface, External Ris In - 04/05/2020 5:18 PM CDTFINAL REPORT TECHNIQUE: Frontal chest radiograph dated 04/05/2020. CLINICAL HISTORY: SOB, Fever COMPARISON STUDY: Chest radiograph dated 04/01/2020 IMPRESSION:Endotracheal and enteric tubes have been removed. Lungs are clear. No pleural effusion or pneumothorax. Cardiomediastinal silhouette is normal in size. No pulmonary edema. No fracture. Signed: Douglas [place] Verified Date/Time: 04/05/2020 17:16:45 Reading Location: [address] Transitional Reading [facility] [id number] 17:04:00 Test Item Value Reference Range Interpretation Comments POC-GLUCOSE METER 128 mg/dL 70-110 H : TESTED A T [facility] 6720 (BEAKER) (test code = [place], 1538) 09464: Weed Inspector/Techni janel ID = [id number] for RO DGERS, JAMECA Lactic acid, [id number] 16:47:00 Test Item Value Reference Range Interpretation Comments Lactate, Venous (test code = 1.24 mmol/L 0.5-2.2 2871) VIKKI (test code = VIKKI) Weed Inspector ID - DB Lab Interpretation (test Normal code = 04620-3) [facility] HospitalLACT[facility], [id number] 16:47:00 Test Item Value Reference Range Interpretation Comments LACTATE BLOOD VENOUS (2) (BEAKER) 1.24 mmol/L 0.50-2.20 (test code = 2872) Weed Inspector ID - DBPOCT-GLUCOSE [id number] 11:33:00 Test Item Value Reference Range Interpretation Comments POC-GLUCOSE METER 92 mg/dL 70-110 : TESTED A T [facility] 6720 (BEAKER) (test code = [facility], 153) 83663: Weed Inspector/Techni janel ID = [id number] for RODG ERS, JAMECA POCT-GLUCOSE [id number] 08:34:00 Test Item Value Reference Range Interpretation Comments POC-GLUCOSE METER 136 mg/dL 70-110 H : TESTED A T [facility] 6720 (BEAKER) (test code = [facility], 1538) 67579: Weed Inspector/Techni janel ID = [id number] for RO DGERS, JAMECA POCT-GLUCOSE [id number] 21:09:00 Test Item Value Reference Range Interpretation Comments POC-GLUCOSE METER 93 mg/dL 70-110 : TESTED A T [facility] 6720 (BEAKER) (test code = [facility], 1538) 18020: Weed Inspector/Techni janel ID = [id number] for DILCIA Z, NADINA POCT-GLUCOSE [id number] 18:02:00 Test Item Value Reference Range Interpretation Comments POC-GLUCOSE METER 84 mg/dL 70-110 : TESTED A T [facility] 6720 (BEAKER) (test code = [facility], 1538) 06797: Weed Inspector/Techni janel ID = [id number] for BROW N, DARYA Hepatic function [id number] 16:01:00 Test Item Value Reference Range Interpretation Comments Protein, Total (test code = 7.4 6.0- 8.3 gm/dL 2885-2) Albumin (test code = 3.8 g/dL 3.5-5 72735-6) Total Bilirubin (test code 1.4 mg/dL 0.2-1.2 H = 1974-2) Bilirubin, Direct (test 0.7 mg/dL 0.1-0.5 H code = 1967-7) Alkaline Phosphatase (test 102 U/L 40-150 code = 6768-6) AST (test code = 1920-8) 67 U/L 5-34 H ALT (test code = 1742-6) 40 U/L 6-55 VIKKI (test code = VIKKI) Weed Inspector ID - NTP Lab Interpretation (test Abnormal code = 71145-0) [facility] CampusHEPAT[facility] FUNCTION [id number] 16:01:00 Test Item Value Reference Range Interpretation [...] (test code = 40 U/L 6-55 347) Weed Inspector ID - NTPCBC W/PLT COUNT & AUTO [id number] 15:40:00 Test Item Value Reference Range Interpretation [...] PERCENT (BEAKER) (test code = 2801) POCT-GLUCOSE [id number] 11:53:00 Test Item Value Reference Range Interpretation Comments POC-GLUCOSE METER 94 mg/dL 70-110 : TESTED A T [facility] 6720 (BEAKER) (test code = [place], 153) 05186: Weed Inspector/Techni janel ID = [id number] for DARYA SEWELL POCT-GLUCOSE [id number] 09:06:00 Test Item Value Reference Range Interpretation Comments POC-GLUCOSE METER 114 mg/dL 70-110 H : TESTED A T [facility] 6720 (BEAKER) (test code = [place], 1538) 51751: Weed Inspector/Techni janel ID = [id number] for DARYA PEREZ [id number] 06:19:00 Test Item Value Reference Range Interpretation Comments PHOSPHORUS (BEAKER) (test code = 3.8 mg/dL 2.3-4.7 604) Weed Inspector ID - ZAHRA [id number] 06:19:00 Test Item Value Reference Range Interpretation Comments MAGNESIUM (BEAKER) (test code = 1.8 mg/dL 1.6-2.6 627) Weed Inspector ID - ZAHRA MBASIC METABOLIC [id number] 06:19:00 Test Item Value Reference Range Interpretation [...] S NOT APPLICABLE FOR DIALYSIS PATIEN TS. Weed Inspector ID - ZAHRA MCBC W/PLT COUNT & AUTO [id number] 05:56:00 Test Item Value Reference Range Interpretation [...] PERCENT (BEAKER) (test code = 2801) POCT-GLUCOSE [id number] 22:05:00 Test Item Value Reference Range Interpretation Comments POC-GLUCOSE METER 110 mg/dL 70-110 : TESTED [address] [facility] 6720 (BEAKER) (test code = [facility] [place], 1538) 00106: Weed Inspector/Techni janel ID = [id number] for JOSE C MADDEN MS POCT-GLUCOSE [id number] 18:00:00 Test Item Value Reference Range Interpretation Comments POC-GLUCOSE METER 127 mg/dL 70-110 H : TESTED A T [facility] 6720 (BEAKER) (test code = [facility], 1538) 19507: Weed Inspector/Techni janel ID = [id number] for Sm ith, Elaina POCT-GLUCOSE [id number] 11:47:00 Test Item Value Reference Range Interpretation Comments POC-GLUCOSE METER 100 mg/dL 70-110 : TESTED A T [facility] 6720 (BEAKER) (test code = [facility] [place] [place], 1538) 54792: Weed Inspector/Techni janel ID = [id number] for Sm ith, Elaina Hemoglobin [id number] 10:02:00 Test Item Value Reference Range Interpretation Comments Hemoglobin A1C (test code = 4548-4) 6.0 % 4.3-6.1 Lab Interpretation (test code = Normal 61675-2) [facility] CampusHEMOGLOBIN [id number] 10:02:00 Test Item Value Reference Range Interpretation Comments HEMOGLOBIN A1C (BEAKER) (test code = 6.0 % 4.3-6.1 368) POCT-GLUCOSE [id number] 07:38:00 Test Item Value Reference Range Interpretation Comments POC-GLUCOSE METER 115 mg/dL 70-110 H : TESTED A T [facility] 6720 (BEAKER) (test code = [facility], 1538) [address]: Weed Inspector/Techni janel ID = [id number] for Sm ith, Elaina U/S, ABDOMINAL, [id number] 06:20:00Abdomen limited area? Add comment if clarification [...] MDReport Verified Date/Time: 04/03/2020 06:20:42 US abdomen [id number] 06:20:00Interface, External Ris In - 04/03/2020 6:23 [...] Leighton Walker MDReport Verified Date/Time: 04/03/2020 06:20:42 [facility]00 Test Item Value Reference Range Interpretation Comments PHOSPHORUS (BEAKER) (test code = 3.3 mg/dL 2.3-4.7 604) Weed Inspector ID - DELFINO [id number] 04:33:00 Test Item Value Reference Range Interpretation Comments MAGNESIUM (BEAKER) (test code = 1.8 mg/dL 1.6-2.6 627) Weed Inspector ID - DELFINO LBASIC METABOLIC [id number] 04:33:00 Test Item Value Reference Range Interpretation [...] S NOT APPLICABLE FOR DIALYSIS PATIEN TS. Weed Inspector ID - PIKARINA LHEPATIC FUNCTION [id number] 04:33:00 Test Item Value Reference Range Interpretation [...] (test code = 32 U/L 6-55 347) Weed Inspector ID - DELFINO LCBC W/PLT COUNT & AUTO [id number] 04:08:00 Test Item Value Reference Range Interpretation [...] PERCENT (BEAKER) (test code = 2801) POCT-GLUCOSE [id number] 21:20:00 Test Item Value Reference Range Interpretation Comments POC-GLUCOSE METER 144 mg/dL 70-110 H : Notified RN/MD: (BEAKER) (test code = TESTED AT [facility] 6720 1538) [facility], [address]: Weed Inspector/Techni janel ID = [id number] for ZAYDA LANDON ICE MR, BRAIN, WITHOUT [id number] 20:37:00FINAL REPORT MR, BRAIN, WITHOUT CONTRAST INDICATION: [...] Date/Time: 04/02/2020 20:37:03 MR brain without IV [id number] 20:37:00Interface, External Ris In - 04/02/2020 8:39 [...] Signed: Parvin More Verified Date/Time: 04/02/2020 20:37:03 [facility] [id number] 17:29:00 Test Item Value Reference Range Interpretation Comments POC-GLUCOSE METER 131 mg/dL 70-110 H : TESTED A T [facility] 6720 (BEAKER) (test code = [facility], 1538) [address]: Weed Inspector/Techni janel ID = [id number] for KATIE ZAMORA LITHIUM [id number] 16:31:00 Test Item Value Reference Range Interpretation Comments LITHIUM LEVEL (BEAKER) < mmol/L 0.8-1.2 L This test was performed (test code = 630) at:[facility] , [facility], [address] [place] [id number] Rapid drug screen, [id number] 13:58:00 Test Item Value Reference Range Interpretation Comments Barbiturate Screen Negative Negative (test code = 16959-4) Benzodiazepine Screen Positive Negative A (test code = 59339-0) Cocaine (Metab.) Negative Negative Screen (test code = 3397-7) Methadone Screen (test Negative Negative code = 99113-7) Opiate Screen (test Negative Negative code = 10030-3) Cannabinoid Screen Negative Negative (test code = 98303-1) Amph/Methamph Screen Negative Negative (test code = 24800-4) Phencyclidine Screen Negative Negative (test code = 87483-0) pH, UA (test code = 6.5 5.0-8.0 5803-2) VIKKI (test code = VIKKI) DRUG CUTOFF CONC.Cocaine 300 ng/mL Cannabinoid 50 ng/mLBenzodiazepine 200 ng/mLBarbiturate 200 ng/mLPhencyclidine 25 ng/mLOpiate 300 ng/mLMethadone 300 ng/mLAmphetamine/ 1000 ng/mL Methamphetamine This assay provides an unconfirmed qualitative test result for the clinical management of patients in emergency situations. Chain of custody not maintained. Some bdly-woq-emrwdpa medications, as well as adulterants, may cause inaccurate results. Clinical correlation should be applied. A more comprehensive drug screen or confirmation of a detected drug may be performed upon request.Weed Inspector ID - ADMIN Lab Interpretation Abnormal (test code = 84815-2) [facility] Campus[facility]EN, [id number] 13:58:00 Test Item Value Reference Range Interpretation [...] situations. Chain of custody not maintained. Some lgfv-vjc-xsvdbrw medications, as well as adulterants, may cause inaccurate results. Clinical correlation should be applied. A more comprehensivedrug screen or confirmation of a detected drug may be performed upon request.Weed Inspector ID - ADMINEEG W VID 12-26 HR CONTINUOUS MONITORING (VEEG)2020-04-02 13:28:00Reason for exam:- >SEIZURES Should this be performed at the bedside?->YesDate of EE04/01/2020 to 04/02/2020 DATE OF REPORT: 04/02/2020 ACC: [id number] EEG Number: [id number] Start time: 04/01/2020 @ 14:41 PM Stop time: 04/02/2020 @ 11:30 AM ICD-10: R56.9 CPT Code: 38984 HISTORY: 54 y.o. Female with ADHD, bipolar [...] epilepsy remains, consider additional EEG recordings. Avtar Parekr MD Neurophysiology Fellow I have reviewed the electroencephalogram and this report and agree with its interpretation. Elvie Mckay MD Epilepsy Attending EEG 12-26 HR Continuous Monitoring with [id number] 13:28:00 Interface, External Ris In - 04/02/2020 1:28 PM CDTDate of EE04/01/2020 to 04/02/2020 DATE OF REPORT: 04/02/2020 ACC: [id number] EEG Number: [id number] Start time: 04/01/2020 @ 14:41 PM Stop time: 04/02/2020 @ 11:30 AM ICD-10: R56.9 CPT Code: 56167 HISTORY: 54 y.o. Female with ADHD, bipolar [...] by: ELVIE MCKAY MD on 04/02/2020 01:28 [facility]2020-05-26 12:55:00 Test Item Value Reference Range Interpretation Comments Ammonia (test code = 60 18- 72 mol/L 67632-6) VIKKI (test code = VIKKI) Weed Inspector ID - ABILIO E Lab Interpretation (test Normal code = 34564-1) [facility]2020-05-26 12:55:00 Test Item Value Reference Range Interpretation Comments AMMONIA (BEAKER) (test code = 348) 60 mol/L 18-72 Weed Inspector ID - ABILIO EPOCT-GLUCOSE [id number] 11:12:00 Test Item Value Reference Range Interpretation Comments POC-GLUCOSE METER 165 mg/dL 70-110 H : TESTED A T [facility] 6720 (BEAKER) (test code = [facility] [place], 1538) [address]: Weed Inspector/Techni janel ID = [id number] for KATIE ZAMORA POCT-GLUCOSE [id number] 08:44:00 Test Item Value Reference Range Interpretation Comments POC-GLUCOSE METER 97 mg/dL 70-110 : TESTED A T [facility] 6720 (BEAKER) (test code = [facility] [place], 1538) [address]: Weed Inspector/Techni janel ID = [id number] for HARIS FUCHS BASIC METABOLIC [id number] 05:35:00 Test Item Value Reference Range Interpretation [...] S NOT APPLICABLE FOR DIALYSIS PATIEN TS. Weed Inspector ID - LACBC W/PLT COUNT & AUTO [id number] 05:04:00 Test Item Value Reference Range Interpretation [...] PERCENT (BEAKER) (test code = 2801) POCT-GLUCOSE [id number] 02:05:00 Test Item Value Reference Range Interpretation Comments POC-GLUCOSE METER 116 mg/dL 70-110 H : TESTED A T [facility] 6720 (BEAKER) (test code = [place] [place], 1538) [address]: Weed Inspector/Techni janel ID = [id number] for Neda Pineda T4, [id number] 20:56:00 Test Item Value Reference Range Interpretation Comments Free T4 (test code = 1.19 ng/dL 0.7-1.48 3024-7) VIKKI (test code = VIKKI) Weed Inspector ID - NTP Lab Interpretation (test Normal code = 78145-8) [facility] CampusT[facility], [id number] 20:56:00 Test Item Value Reference Range Interpretation Comments FREE T4 (BEAKER) (test code = 655) 1.19 ng/dL 0.70-1.48 Weed Inspector ID - NTPPOCT-GLUCOSE [id number] 20:54:00 Test Item Value Reference Range Interpretation Comments POC-GLUCOSE METER 99 mg/dL 70-110 : TESTED A T [facility] 6720 (BEAKER) (test code = [facility] [place], 1538) [address]: Weed Inspector/Techni janel ID = [id number] for DUNG DOWLING TSH/Free T4 If [id number] 20:18:00 Test Item Value Reference Range Interpretation Comments TSH (test code = 0.057 0.350- 4.940 uIU/mL L 91212-1) VIKKI (test code = VIKKI) Weed Inspector ID - NTP Lab Interpretation (test Abnormal code = 83592-4) [facility] CampusTSH/FREE T4 IF [id number] 20:18:00 Test Item Value Reference Range Interpretation Comments THYROID STIMULATING HORMONE 0.057 uIU/mL 0.350-4.940 L (BEAKER) (test code = 772) Weed Inspector ID - NTPVitamin B12 and [id number] 20:07:00 Test Item Value Reference Range Interpretation Comments Vitamin B12 (test code = 929 pg/mL 213-816 H 2132-9) Folate (test code = 2284-8) 15.80 ng/mL >=7.00 VIKKI (test code = VIKKI) Weed Inspector ID - NTP Lab Interpretation (test Abnormal code = 54888-1) [facility] CampusVITAMIN B12 AND [id number] 20:07:00 Test Item Value Reference Range Interpretation Comments VITAMIN B12 (BEAKER) (test code = 929 pg/mL 213-816 H 774) FOLATE (BEAKER) (test code = 362) 15.80 ng/mL >=7.00 Weed Inspector ID - NTPHEPATIC FUNCTION [id number] 19:32:00 Test Item Value Reference Range Interpretation [...] (test code = 31 U/L 6-55 347) Weed Inspector ID - NTPPOCT-GLUCOSE [id number] 18:09:00 Test Item Value Reference Range Interpretation Comments POC-GLUCOSE METER 96 mg/dL 70-110 : TESTED A T [facility] 6720 (BEAKER) (test code = [facility], 1538) [address]: Weed Inspector/Techni janel ID = [id number] for SLY DUBOSE POCT-GLUCOSE [id number] 12:33:00 Test Item Value Reference Range Interpretation Comments POC-GLUCOSE METER 102 mg/dL 70-110 : TESTED A T [facility] 6720 (BEAKER) (test code = [facility], 1538) [address]: Weed Inspector/Techni janel ID = [id number] for JOSEPHINE HOOVER Troponin [id number] 07:53:00 Test Item Value Reference Range Interpretation Comments Troponin I (test code = 0.01 ng/mL 0-0.03 49635-8) VIKKI (test code = VIKKI) Troponin I [...] NTP Lab Interpretation (test Normal code = 30487-0) [facility] CampusTROPONIN [id number] 07:53:00 Test Item Value Reference Range Interpretation [...] failure, acidosis, acute neurological disease, and persistent tachyarrhythmia.Weed Inspector ID - NTPSARS-COV2/RT-PCR ([facility])2020-04-01 06:29:00 Test Item Value Reference Range Interpretation Comments SARS-COV2/RT-PCR (test Not Detected Not Detected, Negative code = 9636295) SARS-COV-2 PERFORMING LAB [facility] (test code = 0896868) Negative results do not preclude SARS-CoV-2 infection [...] of the Act.Fact Sheet for Healthcare Pro viders:https://www.[employer]/Documents/Xpert%20Xpress%20SARS%20CoV-2/Fact%20Sh eets/302-5812%15WHAB-XFR-2%20HEALTHCARE%20PROVIDERS%20FACT%20SHEET.pdfFact Sheet for Healthcare Patients:https://www.[employer]/Documents/Xpert%20Xpress%20SARS%20CoV-2/Fact%20Sheets/302-3801%20SARS-COV -2%20PATIENT%20FACT%20SHEET.pdfPerforming Laboratory:[facility], [place] [address]PIT W/PLT COUNT & AUTO DIFFERENTIAL 2020-04-01 05:56:00 [...] code = 2801) URINALYSIS W/ REFLEX URINE [id number] 05:55:00 Test Item Value Reference Range Interpretation [...] = 1584) SOURCE(BEAKER) (test code = 2795) Weed Inspector ID - [auto]Weed Inspector ID - techCreatine Kinase (CK)2020-04-01 05:42:00 Test Item Value Reference Range Interpretation Comments Total CK (test code = 79 U/L 29-200 2157-6) VIKKI (test code = VIKKI) Weed Inspector ID - ZAHRA M Lab Interpretation (test Normal code = 89281-6) [facility]PH[facility]2020-05-25 05:42:00 Test Item Value Reference Range Interpretation Comments PHOSPHORUS (BEAKER) (test code = 3.0 mg/dL 2.3-4.7 604) Weed Inspector ID - ZAHRA [id number] 05:42:00 Test Item Value Reference Range Interpretation Comments MAGNESIUM (BEAKER) (test code = 2.1 mg/dL 1.6-2.6 627) Weed Inspector ID Caroline SWEENEY MBASIC METABOLIC [id number] 05:42:00 Test Item Value Reference Range Interpretation [...] S NOT APPLICABLE FOR DIALYSIS PATIEN TS. Weed Inspector ID Caroline SWEENEY MCREATINE KINASE (CK)2020-04-01 05:42:00 Test Item Value Reference Range Interpretation Comments CREATINE KINASE TOTAL (BEAKER) (test 79 U/L 29-200 code = 380) Weed Inspector ID - ZAHRA MPT/[id number] 05:34:00 Test Item Value Reference Range Interpretation Comments Protime (test code = 15.4 11.9- 14.2 H 5902-2) seconds INR (test code = 1.3 <=5.9 6301-6) PTT (test code = 25.8 22.5- 36.0 14847-9) seconds VIKKI (test code = VIKKI) Effective 04/05/2019: PT Reference Range ChangeNew: 11.9-14.2 Previous: 11.7-14.7 RECOMMENDED COUMADIN/WARFARIN INR THERAPY RANGESSTANDARD DOSE: 2.0-3.0 Includes: PROPHYLAXIS for venous thrombosis, systemic embolization; TREATMENT for venous thrombosis and/or pulmonary embolus.HIGH RISK: Target INR is 2.5-3.5 for patients wiht mechanical heart valves. Lab Interpretation Abnormal (test code = 84229-7) [facility] CampusPT/[id number] 05:34:00 Test Item Value Reference Range Interpretation [...] mechanical heart valves.RAD, CHEST, 1 VIEW, NON [id number] 05:12:00Reason for exam:->post intubationIs the patient ?->UnknownFINAL [...] to the upper abdomen. Signed: Leighton Walker Verified Date/Time: 04/01/2020 05:12:05 CRITICAL [id number] 04:51:Glendy Lockhart MD 04/15/2020 3:33 PMCritical CarePerformed by: Glendy Clayton MDAuthorized by: Glendy Clayton MD Total critical care time: 30 minutesCritical care was necessary to treat or prevent imminent or life-threatening deterioration of the following conditions: respiratory failure and HEAT CURER failure or compromise.Critical care was time spent [...] of radiographic studies and re-evaluation of patient's condition.[facility] ECG/EKG [id number] 04:51:Glendy Lockhart MD 04/15/2020 3:33 PMECG/EKG InterpretationDate/Time: 04/15/2020 3:33 PMPerformed by: Glendy Clayton MDAuthorized by: Arturo Downs MD The ECG was interpreted by ED physician. The ECG is interpreted as sinus tachycardia. Rate is tachycardic. Heart rate is 111 BPM.ST segments normal. T waves normal. Ider is normal. Other findings include: prolonged QTc interval. Clinical Impression: non-specific ECGECG reviewed and does not meet STEMI criteria. Patient tolerance: Patient tolerated the procedure well with no immediate complicationsCHI [facility] P[facility] Glucose, [id number] 05:26:00 Test Item Value Reference Range Interpretation Comments POC Glucose (test 136 mg/dL 70-115 H Notify RN or MDIf you code = POCGLUC) consider you r patient critically ill, the Moira Accu-Chek InformII metershould not be used for Glucose determinations. Draw a venous Glucose and send to the Main Lab for Analysis. [id number] 08:15:00 Test Item Value Reference Range Interpretation Comments [place] (test code = LI) 0.44 mmol/L 0.6-1.2 L POC Glucose, [id number] 05:37:00 Test Item Value Reference Range Interpretation Comments POC Glucose (test 134 mg/dL 70-115 H If you con clearance center manager your code = POCGLUC) patient crit ically ill, the Moira Accu- Chek InformII meters hould not be used for Glu cose determinations. Draw a venous Glucose and send to the Main Lab for Analysis. POC Glucose, [id number] 07:28:00 Test Item Value Reference Range Interpretation Comments POC Glucose (test 128 mg/dL 70-115 H If you con clearance center manager your code = POCGLUC) patient crit ically ill, the [place]ira Accu- Chek InformII meters hould not be used for Glu cose determinations. Draw a venous Glucose and send to the Main Lab for Analysis. POC Glucose, [id number] 20:18:00 Test Item Value Reference Range Interpretation Comments POC Glucose (test 121 mg/dL 70-115 H If you con clearance center manager your code = POCGLUC) patient crit ically ill, the Moira Accu- Chek InformII meters hould not be used for Glu cose determinations. Draw a venous Glucose and send to the Main Lab for Analysis. BHCG, Serum, [id number] 22:36:00 Test Item Value Reference Range Interpretation Comments Preg Qual [Se] (test code = BSHCG) Negative Negative N POC Glucose, [id number] 15:14:00 Test Item Value Reference Range Interpretation Comments POC Glucose (test 117 mg/dL 70-115 H If you con clearance center manager your code = POCGLUC) patient crit ically ill, the Moira Accu- Chek InformII meters hould not be used for Glu cose determinations. Draw a venous Glucose and send to the Main Lab for Analysis.
[2020-11-16] MEDS ORDERED: DIPHENHYDRAMINE 50 MG/ML VIAL ONE (10:06)
[2020-11-16] MEDS ORDERED: KETOROLAC 30 MG/ML INJ ONE (10:06)
--- NOTE | 2020-11-16 10:13 | EDPHYS ---
Physician Documentation [facility] Name: Wendi Norton Age: 55 yrs Sex: Female : 1965 Arrival Date: 11/16/2020 Time: 09:07 Bed 15 Private MD: ED Physician Gato Smart HPI: 11/16 09:35 This 55 yrs old Female presents to ER via EMS with complaints of Left Side cp Rib Pain and Shortness of Breath. 09:35 The patient or guardian reports chest pain that is located primarily in the left lower cp rib area. Onset: today. The pain does not radiate. 09:35 Associated signs and symptoms: Pertinent positives: shortness of breath, Pertinent cp negatives: cough, diaphoresis, dizziness, lower extremity pain, lower extremity swelling. Duration: The patient or guardian reports a single episode, that is still ongoing, and unchanged. 09:35 Patient denies injury to area and reports running out of pain medications. cp Historical: - Allergies: 09:40 No Known Allergies; aa5 - Home Meds: 09:13 Adderall XR Oral 1 cap once daily [Active]; clonazepam 2 mg Oral tab 1 tab daily jl7 [Active]; fluoxetine 20 mg Oral tab 1 tab once daily [Active]; lithium carbonate 300 mg Oral cpER 1 tab nightly [Active]; quetiapine 300 mg Oral tab 1 tab nightly [Active]; Tylenol #3 Oral [Active]; Vicodin 5-300 mg Oral tab 1 tab daily [Active]; - PMHx: 09:13 ADD/ADHD; Asthma; Bipolar disorder; breast cancer- in remission; COPD; Depression; jl7 Diabetes - NIDDM; Diverticulitis; Hepatitis; Pain Management; PTSD; - PSHx: 09:13 ; arm surgery; leg surgery; jl7 - Immunization history:: Adult Immunizations unknown. - Social history:: Smoking status: Patient reports the use of cigarette tobacco products, smokes one pack cigarettes per day. ROS: 09:40 Constitutional: Negative for body aches, chills, fever. cp 09:40 Eyes: Negative for injury, pain, redness, and discharge. cp Exam: 09:46 Head/Face: Normocephalic, atraumatic. cp 09:46 Constitutional: The patient appears in no acute distress, alert, awake, non-diaphoretic, non-toxic, well developed, well nourished. 09:46 Eyes: Periorbital structures: appear normal, Conjunctiva: normal, no exudate, no injection, Sclera: no appreciated abnormality, Lids and lashes: appear normal, bilaterally. 09:46 ENT: External ear(s): are unremarkable, Nose: is normal, Mouth: Lips: moist, Oral mucosa: moist, Posterior pharynx: Airway: no evidence of obstruction, patent. 09:46 Neck: ROM/movement: is normal, is supple, without pain, no range of motions limitations. 09:46 Chest/axilla: Inspection: normal, Palpation: crepitus, is not appreciated, tenderness, that is mild, of the left lower rib area. 09:46 Cardiovascular: Rate: tachycardic, Rhythm: regular, Edema: is not appreciated, JVD: is not appreciated. 09:46 Respiratory: the patient does not display signs of respiratory distress, Respirations: normal, no use of accessory muscles, no retractions, labored breathing, is not present, Breath sounds: are clear throughout, no decreased breath sounds, no stridor, no wheezing. 09:46 Abdomen/GI: Exam negative for discomfort, distension, guarding, Inspection: abdomen appears normal. 09:46 Neuro: Orientation: to person, place \T\ time. Mentation: is normal. Vital Signs: 09:07 BP 128 / 72; Pulse 103; Resp 17; Temp 98.4; Pulse Ox 96% ; Weight 90.72 kg; Height 5 jl7 ft. 3 in. (160.02 cm); Pain 9/10; 10:19 BP 131 / 83; Pulse 100; Resp 18 S; Pulse Ox 95% on R/A; ca1 09:07 Body Mass Index 35.43 (90.72 kg, 160.02 cm) jl7 MDM: 09:39 Patient medically screened. cp 10:00 Differential diagnosis: chest wall pain, costochondritis, pleurisy, pneumonia, cp pneumothorax. 10:12 Data reviewed: vital signs, nurses notes, radiologic studies, plain films, and as a cp result, I will discharge patient. 10:12 Test interpretation: by ED physician or midlevel provider: chest xray negative for cp infiltrates. Counseling: I had a detailed discussion with the patient and/or guardian regarding: the historical points, exam findings, and any diagnostic results supporting the discharge/admit diagnosis, radiology results, to return to the emergency department if symptoms worsen or persist or if there are any questions or concerns that arise at home. 01 09:34 Order name: XRAY Chest (1 view) cp Administered Medications: 09:45 Drug: TORadol 30 mg Route: IM; Site: left deltoid; aa5 10:10 Follow up: Response: No adverse reaction; Pain is decreased ca1 09:45 Drug: Benadryl 25 mg Route: IM; Site: right deltoid; aa5 10:10 Follow up: Response: No adverse reaction; Marked relief of symptoms ca1 Disposition: 11:28 Co-signature as Attending Physician, Gato Smart MD. rn Disposition: 11/16/20 10:13 Discharged to Home. Impression: Intercostal pain. - Condition is Stable. - Discharge Instructions: Nonspecific Chest Pain. - Medication Reconciliation Form, Thank You Letter, Antibiotic Education, Prescription Opioid Use form. - Follow up: Private Physician; When: 2 - 3 days; Reason: Recheck today's complaints. - Problem is new. - Symptoms have improved. Signatures: Dispatcher [employer] EDMS Gato Smart MD MD rn Calderon, Audri, RN RN aa5 Donavan Penn PA PA cp Robert Cleary RN RN jl7 Betty Aponte RN RN ca1 Corrections: (The following items were deleted from the chart) 09:56 09:13 Allergies: Motrin; jlCeasar aa5 10:14 10:13 11/16/2020 10:13 Discharged to Home. Impression: Other chest pain. Condition is cp Stable. Forms are Medication Reconciliation Form, Thank You Letter, Antibiotic Education, Prescription Opioid Use. Follow up: Private Physician; When: 2 - 3 days; Reason: Recheck today's complaints. Problem is new. Symptoms have improved. cp 10:23 10:14 11/16/2020 10:13 Discharged to Home. Impression: Intercostal pain. Condition is ca1 Stable. Forms are Medication Reconciliation Form, Thank You Letter, Antibiotic Education, Prescription Opioid Use. Follow up: Private Physician; When: 2 - 3 days; Reason: Recheck today's complaints. Problem is new. Symptoms have improved. cp
--- NOTE | 2020-11-16 10:13 | ER ---
Nurse's Notes [facility] Name: Wendi Norton Age: 55 yrs Sex: Female : 1965 Arrival Date: 11/16/2020 Time: 09:07 Bed 15 Private MD: Diagnosis: Intercostal pain Presentation: 11/16 09:07 Chief complaint: EMS states: Toned out for anxiety and pain all over, BP 140/90, HR jl7 110, RR 18, O2 96%. 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 Coronavirus screen: Client denies travel out of the [place] in the last 14 days. At this time, the client does not indicate any symptoms associated with coronavirus-19. Ebola Screen: No symptoms or risks identified at this time. Initial Sepsis Screen: Does the patient meet any 2 criteria? No. Patient's initial sepsis screen is negative. Does the patient have a suspected source of infection? No. Patient's initial sepsis screen is negative. Risk Assessment: Do you want to hurt yourself or someone else? Patient reports no desire to harm self or others. Onset of symptoms is unknown. Care prior to arrival: None. Transition of care: patient was not received from another setting of care. 09:07 Method Of Arrival: EMS: [facility] jl7 09:07 Acuity: RAUL 4 jl7 Triage Assessment: 09:13 General: Appears in no apparent distress. uncomfortable, Behavior is cooperative, jl7 anxious. Pain: Complains of pain in right rib cage Pain currently is 9 out of 10 on a pain scale. Historical: - Allergies: 09:40 No Known Allergies; aa5 - Home Meds: 09:13 Adderall XR Oral 1 cap once daily [Active]; clonazepam 2 mg Oral tab 1 tab daily jl7 [Active]; fluoxetine 20 mg Oral tab 1 tab once daily [Active]; lithium carbonate 300 mg Oral cpER 1 tab nightly [Active]; quetiapine 300 mg Oral tab 1 tab nightly [Active]; Tylenol #3 Oral [Active]; Vicodin 5-300 mg Oral tab 1 tab daily [Active]; - PMHx: 09:13 ADD/ADHD; Asthma; Bipolar disorder; breast cancer- in remission; COPD; Depression; jl7 Diabetes - NIDDM; Diverticulitis; Hepatitis; Pain Management; PTSD; - PSHx: 09:13 ; arm surgery; leg surgery; jl7 - Immunization history:: Adult Immunizations unknown. - Social history:: Smoking status: Patient reports the use of cigarette tobacco products, smokes one pack cigarettes per day. Screenin:14 Abuse screen: Denies threats or abuse. Denies injuries from another. Nutritional jl7 screening: No deficits noted. Tuberculosis screening: No symptoms or risk factors identified. 10:05 Fall Risk None identified. ca1 Assessment: 09:10 General: Appears uncomfortable, Behavior is anxious, Reports anxiety. Pain: Complains aa5 of pain in lateral aspect of chest, pt states "My ribs hurt" Pain currently is 9 out of 10 on a pain scale. Quality of pain is described as sharp. Neuro: Level of Consciousness is awake, alert, obeys commands, Oriented to person, place, time, situation. Cardiovascular: Heart tones S1 S2 present Patient's skin is warm and dry. Rhythm is regular. Respiratory: Airway is patent Respiratory effort is even, unlabored, Respiratory pattern is regular, symmetrical, Denies cough, shortness of breath. GI: No signs and/or symptoms were reported involving the gastrointestinal system. : No signs and/or symptoms were reported regarding the genitourinary system. EENT: No signs and/or symptoms were reported regarding the EENT system. Derm: Skin is pink, warm \\T\\ dry. Musculoskeletal: Range of motion: intact in all extremities. 09:45 Reassessment: Patient is alert, oriented x 3, equal unlabored respirations, skin aa5 warm/dry/pink. Pt now calm and cooperative. Anxiety decreased. . 10:19 Reassessment: see triage notes. Reassessment: Patient appears in no apparent distress ca1 at this time. Patient is alert, oriented x 3, equal unlabored respirations, skin warm/dry/pink. Patient states feeling better. Vital Signs: 09:07 BP 128 / 72; Pulse 103; Resp 17; Temp 98.4; Pulse Ox 96% ; Weight 90.72 kg; Height 5 jl7 ft. 3 in. (160.02 cm); Pain 9/10; 10:19 BP 131 / 83; Pulse 100; Resp 18 S; Pulse Ox 95% on R/A; ca1 09:07 Body Mass Index 35.43 (90.72 kg, 160.02 cm) jl7 ED Course: 09:07 Patient arrived in ED. jl7 09:10 Triage completed. jl7 09:13 Arm band placed on right wrist. jl7 09:14 Patient has correct armband on for positive identification. Bed in low position. Call jl7 light in reach. Side rails up X2. Pulse ox on. NIBP on. Warm blanket given. 09:26 Donavan Penn PA is PHCP. cp 09:26 Gato Smart MD is Attending Physician. cp 09:49 Oralia Mcclain, RN is Primary Nurse. aa5 10:12 XRAY Chest (1 view) In Process Unspecified. EDMS 10:20 No provider procedures requiring assistance completed. Patient did not have IV access ca1 during this emergency room visit. Administered Medications: 09:45 Drug: TORadol 30 mg Route: IM; Site: left deltoid; aa5 10:10 Follow up: Response: No adverse reaction; Pain is decreased ca1 09:45 Drug: Benadryl 25 mg Route: IM; Site: right deltoid; aa5 10:10 Follow up: Response: No adverse reaction; Marked relief of symptoms ca1 Outcome: 10:13 Discharge ordered by MD. cp 10:20 Discharged to home via wheelchair. ca1 10:20 Condition: stable 10:20 Discharge instructions given to patient, Instructed on discharge instructions, follow up and referral plans. Demonstrated understanding of instructions, follow-up care. 10:23 Patient left the ED. ca1 Signatures: Dispatcher [employer] EDMS Oralia Mcclain, RN RN aa5 Donavan Penn PA PA cp Leal, Jahala, RN RN jl7 Betty Aponte RN RN ca1 Corrections: (The following items were deleted from the chart) 09:56 09:13 Allergies: Motrin; jl7 aa5
--- NOTE | 2020-11-16 10:28 | RAD REPORT ---
EXAM DESCRIPTION: RAD - Chest Single View - 11/16/2020 10:12 am CLINICAL HISTORY: SOB COMPARISON: October 27 TECHNIQUE: AP portable chest image was obtained 11/16/2020 10:12 am . FINDINGS: Exam is limited by body habitus affects, shallow inspiration and portable technique. No peripheral mass or consolidation. Lung markings are not clearly different from comparison. Hazy op acification is seen over each lung base due to overlying soft tissue. Heart size is normal. No measur able pleural effusion and no pneumothorax. No acute bony abnormality seen. No acute aortic findings s uspected. IMPRESSION: No acute cardiopulmonary process. No significant change comparison.
[2020-11-16 10:30] VITALS: BP 131/83; TEMP 98.4; O2SAT 95
== END 2020-11-16 10:23 | disposition home or self-care (01) ==
LOC: ER 09:03
DX: R07.82 Intercostal pain (principal); R06.02 Shortness of breath; F17.210 Nicotine dependence, cigarettes, uncomplicated; F90.9 Attention-deficit hyperactivity disorder, unspecified type; F31.9 Bipolar disorder, unspecified; Z85.3 Personal history of malignant neoplasm of breast; J44.9 Chronic obstructive pulmonary disease, unspecified; E11.9 Type 2 diabetes mellitus without complications; F43.10 Post-traumatic stress disorder, unspecified
CPT/HCPCS: 71045; 96372; 99284; J1200

== ENCOUNTER 2021-01-28 11:52 | Emergency (ER) | payer OTHER ==
--- OUTSIDE RECORDS SUMMARY | 2021-01-28 11:57 | XMS REPORT | Continuity of Care Document ---
:1965 Author Organization [facility] t Address [facility] Baker [address] [place] [id number] Care Team Providers Name Role Phone JANEEN Primary Care Physician Unavailable Fantasma MOYA Attending Clinician Maria M BETANCOURT Attending Clinician Rosa Maria BAER, R Attending Clinician Unavailable Janeen MOYA Attending Clinician Sam BAER Attending Clinician Unavailable JANEEN Attending Clinician Unavailable MARIA M Attending Clinician Unavailable Guicho LEAVITT Attending Clinician Korey MOYA Attending Clinician KOREY Attending Clinician Unavailable Harrison BAER Attending Clinician Unavailable Forrest MOYA [...] Source Number Date Date MEDICAREMEDICARE PART A [id number] 2005 MD Hawley AND 00:00:00 [id number]-Pr -[id number] , [place] [id number] 2018 MD Juan Antonio melendez TRADITIONALMEDICAID [place] 00:00:00 TRADITIONAL STAR PLUS [id number] esentMedicaid MEDICAREMEDICARE A [id number] 2005 [facility] [id number] 2004-Pr 00:00:00 - Medical esentMedicare Center [place] MEDICAIDMEDICAID [id number] [address] [facility] [id number] 2016 00:00:00 - [facility] MEDICAIDMEDICAID [id number] 2015 [facility] ch[facility] Kwan [id number] 2014-P 00:00:00 - Medical [facility] medical centerentMedicaid [place] Problems Condition Condition Condition Status Onset Resolution Last Treating Co mments Source Name Details Category Date Date Treatment Clinician Date E-coli UTI E-coli UTI Disease Active [facility] Tobacco Tobacco Disease Active [facility] abuse abuse 04-04 [facility] Center History of History of Disease Active Overview : [facility] hepatitis hepatitis 5-26 Overview: L ukes - C C 00:00: Per ID Medical 00 team: Center "She denies blood transfusi on before 1991, but she recalled using dilaudid IV by herself and possible sharing needles." Completed 12 weeks of Mo under care of Dr. Manley in January 2019. 528 9 08:25HepC RNA PCR nt-[place] Undetecte d IU/mL (Undetec jassi) Witnessed Witnessed Disease Active [facility] seizure-li seizure-li 5-25 Keyla kes - ke ke 00:00: Medical activity activity 00 Center Anxiety Anxiety Disease Active [facility] and and 04-01 [facility] - depression depression 00:00: Me dical 00 Center Obesity Obesity Disease Active [facility] (BMI (BMI 5- [facility] - 30-39.9) 30-39.9) 00:00: Medica l [...] - on on 00:00: Medical 00 9:[facility] There are findings suggestiv e of portal [...] 9 Obesity Obesity Disease Active Overview: 07-09 Whitney Anderso 00:00: g of this n [...] hypertens ion. Chronic Chronic Disease Active 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 2-05 [place] [facility] [place] 00:00: n portion of portion of 00 left left female female breast breast Estrogen Estrogen Disease Active 2016-11 receptor receptor 2-05 Shahab o positive positive 00:00: n status status 00 (ER+) (ER+) Estrogen Estrogen Disease Active 2016-11 [facility] receptor receptor 2-05 [facility] - positive positive 00:00: Medica l status status 00 [place] (ER+) (ER+) Malignant Malignant Disease Active 2016-11 [facility] neoplasm neoplasm 2-05 [facility] 00:00: Me dical portion of portion [...] depressed depressed 00 Cent er mood mood Leukocytos Leukocytos Disease Resolve 2020-04-08 2020-04-[address] is is d 5-28 00:00:00 13:20:47 [facility] Medical 00 Center Shortness Shortness Disease Resolve 2020-04-08 2020-04-[address] of breath of breath d 6-15 00:00:00 13:20:50 [facility] - 00:[facility]: Medical 00 Center Allergies, Adverse Reactions, Alerts This patient has no known allergies or adverse reactions. Family History Family Member Diagnosis Comments Start Date Stop Date Source Family member -Breast cancer MD Cole rsdeena Family member Ovarian cancer MD Cole rsdeena Social History Social Habit Start Date Stop Date Quantity Comments Source Sex Assigned [facility] Tobacco use and 2020-04-01 2020-04-[address] Keyla kes - exposure 00:00:00 00:00:00 [facility] Alcohol intake 2020-04-01 2020-04-[address] [facility] - 00:00:00 00:00:00 non-drinker of Medical Ce nter alcohol (finding) Tobacco Comment 2019-11-23 2019-11-23 Down from 2 ppd to M Chayo Hawley 00:00:00 00:00:00 5 cigarettes max per day Alcohol Comment 2018-05-05 2018-05-05 Denies any recent MD Hawley 00:00:00 00:00:00 use, remote hx Smoking Status Start Date Stop Date Source Current every day smoker 2020-04-01 00:00:00 [facility] Medications Ordered Filled Start Stop Current Ordering [...] Roxy 8-06 Millender directed [facility] [place] 00:[facility]: [facility] Levemir Levemir 2019-0 Yes Lea as [facility] FlexTouch FlexTouch 8-06 Millender directed [facility] - 00:[facility]: [facility] Pen [place] Pen [place] 2019-0 Yes Lea as [facility] 8-06 Millender directed [facility] - 00:[facility]: [facility] anastrozole 0 2020- No Mucinous TAKE 1 MD (ARIMIDEX) 7 10-12 carcinoma TABLET BY Anderso 1 mg [...] 12:19: 00:00 daily. Medic al 24 :00 [place] dextroamphe 2019-0 2020- No dextroamph [facility] [...] :00 by mouth Center daily. lithium 150 2019-2019- No 300mg Take [address] MG capsule 5-25 05-25 mg by [facility] - 05:02: 00:00 mouth. Medical 54 :00 Center topiramate 2019-0 2020- No 50mg Q.5D Take [address] (TOPAMAX) 5-25 05-25 by mouth 2 Oj es - 50 MG 05:02: 00:00 (two) Medical tablet 53 :00 times Center daily. pregabalin 2019-0 2020- No 50mg Q.[id number] Take [address] (LYRICA) 50 5-25 -25 [id number] by mouth 3 [facility] - MG capsule 05:02: 00:00 3D (three) Med ical 47 :00 times Center daily. dextroamphe 2019-0 2020- No 10mg Take [address] tamine-amph 5- 05-25 by mouth. Keyla kes - etamine 5 05:01: 00:00 Medical mg Tab 55 :00 [place] FLUOXETINE, 0 2020- No 40mg [address] BULK, MISC 04-01-25 Miscellane Keyla kes - 05:01: 00:[address] Medical 52 :00 . [place] polyethylen 2019-0 Yes Constipatio 17g Take 17 g MD [...] 00:00: 00:00 tablet Medical tablet 00 :00 [place] nystatin Yes Schizophren Apply M D (MYCOSTATIN 3-26 iform topically An derso ) 100,000 00:00: disorder to n units/g 00 affected powder area(s) 3 (three) times a day. FLUoxetine Yes Schizophren 40mg Take 1 MD (PROzac) 40 9-26 iform capsule Douglas rso mg capsule 00:00: disorder (40 mg) by n 00 mouth daily. lithium 300 2020- No lithium [facility] MG capsule 6 0608 carbonate Oj es - 00:00: 00:00 300 mg Medical 00 :00 capsule [place] Paxil Paxil Yes Lea [address] Millender in the [facility] - morning [facility] Adderall Adderall Yes Lea [address] [facility] Risperdal Risperdal Yes Lea [address] [facility] Melba Melba Yes Lea (450 mg) [address] Carbonate Carbonate Millender capsule [facility] Quetiapine Quetiapine Yes Lea [address] Fumarate Fumarate Millender at bedtime [facility] - [facility] Klonopin Klonopin Yes Lea [address] [facility] Vital Signs Vital Name Observation Time Observation Value Comments Source Systolic blood 2020-04-16 06:55:00 115 mm[Hg] [facility] Diastolic blood 2020-04-16 06:55:00 75 mm[Hg] [facility] Heart rate 2020-04-16 06:55:00 104 /min [facility] Body temperature 2020-04-16 06:55:[address] [facility] Respiratory rate 2020-04-16 06:55:00 16 /min [facility] Oxygen saturation in 2020-04-16 06:55:00 93 /min [facility] - Arterial blood by Medical Ce nter Pulse oximetry Body weight 2020-04-04 10:17:00 91.899 kg [facility] BMI 2020-04-04 10:17:00 35.45 kg/m2 [facility] Body height 2020-04-01 13:00:00 161 cm [facility] Procedures Procedure Date / Time Performing Clinician Source Performed RHYTHM STRIP - SCAN 2020-04-17 15:11:17 Provider, [facility] POCT-GLUCOSE METER 2020-04-15 22:05:00 Yareli Arturo [facility] POCT-GLUCOSE METER 2020-04-15 12:44:00 Yareli [facility] POCT-GLUCOSE METER 2020-04-15 08:15:00 Yareli Arturo [facility] POCT-GLUCOSE METER 2020-04-14 21:19:00 Lanier, Samantha Haskins [facility] POCT-GLUCOSE METER 2020-04-13 17:03:00 Lanier, Samantha Haskins [facility] POCT-GLUCOSE METER 2020-04-13 11:55:00 Lanier, Samantha Haskins [facility] POCT-GLUCOSE METER 2020-04-13 08:22:00 Lanier, Samantha Haskins [facility] POCT-GLUCOSE METER 2020-04-12 20:48:00 Lanier, Samantha Haskins [facility] POCT-GLUCOSE METER 2020-04-12 17:18:00 Lanier, Samantha [facility]askins [facility] POCT-GLUCOSE METER 2020-04-12 12:10:00 [facility] PO[facility]SE METER 2020-04-12 08:32:00 Lanier, Samantha [facility] LITHIUM LEVEL 2020-04-12 04:26:00 LeeannaJairo [facility] POCT-GLUCOSE METER 2020-04-11 21:49:00 Lanier, Samantha [facility] POCT-GLUCOSE METER 2020-04-11 16:42:00 [facility] 2020-04-11 10:52:00 Lanier, [facility] POCT-GLUCOSE METER 2020-04-11 06:55:00 Lanier, [facility] POCT-GLUCOSE METER 2020-04-10 20:46:00 Lanier, [facility] POCT-GLUCOSE METER 2020-04-10 17:42:00 Lanier, [facility] POCT-GLUCOSE METER 2020-04-10 11:07:00 Lanier, [facility] POCT-GLUCOSE METER 2020-04-10 07:12:00 Lanier, [facility] CBC W/PLT COUNT & AUTO 2020-04-10 03:58:00 Lanier, [facility] BASIC METABOLIC PANEL (7) 2020-04-10 03:58:00 Lanier, [facility] POCT-GLUCOSE METER 2020-04-09 21:30:00 Lanier, [facility] POCT-GLUCOSE METER 2020-04-09 17:05:00 Lanier, [facility] POCT-GLUCOSE METER 2020-04-09 07:13:00 Lanier, [facility] LITHIUM LEVEL 2020-04-09 04:06:00 Lanier, [facility] POCT-GLUCOSE METER 2020-04-08 21:22:00 Lanier, Samantha Haskins [facility] POCT-GLUCOSE METER 2020-04-08 18:08:00 Lanier, Samantha [facility]askins [facility] POCT-GLUCOSE METER 2020-04-08 12:36:00 Lanier, Samantha Haskins [facility] CBC W/PLT COUNT & AUTO 2020-04-08 03:42:00 [facility] COMPREHENSIVE METABOLIC 2020-04-08 03:42:[address] [facility] POCT-GLUCOSE METER 2020-04-07 21:08:00 [facility] POCT-GLUCOSE METER 2020-04-07 17:20:00 [facility] POCT-GLUCOSE METER 2020-04-07 12:02:00 [facility] POCT-GLUCOSE METER 2020-04-07 07:55:00 [facility] CBC W/PLT COUNT & AUTO 2020-04-07 04:24:00 [facility] METABOLIC 2020-04-07 04:24:[address] [facility] POCT-GLUCOSE METER 2020-04-06 21:01:00 [facility] CT CHEST PE TEST DESIGN 2020-04-06 16:30:00 [facility] APTT 2020-04-06 13:47:00 [facility] [place] [facility] [place] [facility] POCT-GLUCOSE METER 2020-04-06 11:56:00 [facility] RESPIRATORY PANEL [facility] 2020-04-06 09:15:[address] [facility] POCT-GLUCOSE METER 2020-04-06 07:41:00 [facility] COMPREHENSIVE METABOLIC 2020-04-06 03:34:[address] [facility] CBC W/PLT COUNT & AUTO 2020-04-06 03:34:00 [facility] APTT 2020-04-06 03:34:00 Asuncion [facility] POCT-GLUCOSE METER 2020-04-05 23:20:00 [facility] URINE CULTURE 2020-04-05 19:02:00 [facility] URINALYSIS W/ REFLEX URINE 2020-04-05 19:02:00 [facility] D-DIMER 2020-04-05 18:48:00 [facility] BASIC METABOLIC PANEL (7) 2020-04-05 18:48:00 Melody Burton [facility] MAGNESIUM 2020-04-05 18:48:00 [facility] PHOSPHORUS 2020-04-05 18:48:00 [facility] CBC W/PLT COUNT & AUTO 2020-04-05 18:48:00 [facility] SARS-COV2/RT-PCR ([facility] & 2020-04-05 17:02:00 Melody Burton I [facility] - REF LABS) [facility] POCT-GLUCOSE METER 2020-04-05 16:51:00 [facility] XR CHEST 1 VIEW 2020-04-05 16:46:00 [facility] PORTABLE/BEDSIDE [facility] LACTIC ACID, VENOUS 2020-04-05 16:24:[address] [facility] ECG 12-LEAD 2020-04-05 16:08:18 [facility] ECG 12-LEAD 2020-04-05 13:27:01 [facility] POCT-GLUCOSE METER 2020-04-05 11:22:00 [facility] POCT-GLUCOSE METER 2020-04-05 08:11:00 [facility] POCT-GLUCOSE METER 2020-04-04 20:58:00 [facility] POCT-GLUCOSE METER 2020-04-04 17:52:00 [facility] HEPATIC FUNCTION PANEL 2020-04-04 15:21:[address] CBC W/PLT COUNT & AUTO 2020-04-04 15:20:00 [facility] REPORT OF PROCEDURE - 2020-04-04 13:41:29 Provider [facility] ENDOSCOPY SCAN Scanning [facility] POCT-GLUCOSE METER 2020-04-04 11:41:00 [facility] POCT-GLUCOSE METER 2020-04-04 08:55:00 [facility] BASIC METABOLIC PANEL (7) 2020-04-04 05:30:00 Chantell Larson CH, I [facility] CBC W/PLT COUNT & AUTO 2020-04-04 05:30:00 Kiirt De La Cruz [facility] MAGNESIUM 2020-04-04 05:30:00 [facility] PHOSPHORUS 2020-04-04 05:30:00 [facility] POCT-GLUCOSE METER 2020-04-03 21:53:00 [facility] POCT-GLUCOSE METER 2020-04-03 17:49:00 [facility] POCT-GLUCOSE METER 2020-04-03 11:26:00 [facility] POCT-GLUCOSE METER 2020-04-03 07:24:00 Bartsch, [facility] US ABDOMEN LIMITED 2020-04-03 05:45:00 [facility] HEPATIC FUNCTION PANEL 2020-04-03 03:34:[address] [facility] BASIC METABOLIC PANEL (7) 2020-04-03 03:34:00 Arley Larsonia JAMILA I [facility] CBC W/PLT COUNT & AUTO 2020-04-03 03:34:00 Kirit De La Cruz [facility] MAGNESIUM 2020-04-03 03:34:00 [facility] PHOSPHORUS 2020-04-03 03:34:00 [facility] HEMOGLOBIN A1C 2020-04-03 03:34:00 [facility] POCT-GLUCOSE METER 2020-04-02 21:09:00 [facility] MR BRAIN WITHOUT IV 2020-04-02 20:22:[address] [facility] POCT-GLUCOSE METER 2020-04-02 17:17:00 [facility] RAPID DRUG SCREEN, URINE 2020-04-02 13:14:00 Kami [facility] DRUG SCREEN, URINE, 2020-04-02 13:12:00 Lorene Mcclure [facility] AMMONIA 2020-04-02 12:22:00 Denisse [facility] BLOOD CULTURE 2020-04-02 12:08:00 Denisse [facility] POCT-GLUCOSE METER 2020-04-02 11:00:00 [facility] POCT-GLUCOSE METER 2020-04-02 08:33:00 [facility] EEG 12-26 HR CONTINUOUS 2020-04-02 06:32:00 Glendy Clayton [facility] - MONITORING WITH VIDEO Medical Ce nter BASIC METABOLIC PANEL (7) 2020-04-02 04:43:00 Noe [facility] CBC W/PLT COUNT & AUTO 2020-04-02 04:43:00 [facility] POCT-[facility]UCOSE METER 2020-04-02 01:53:00 [facility] POCT-GLUCOSE METER 2020-04-01 20:44:00 [facility] HEPATIC FUNCTION PANEL 2020-04-01 18:46:00 [facility] POCT-GLUCOSE METER 2020-04-01 17:57:00 [facility] TSH/FREE T4 IF INDICATED 2020-04-01 14:13:00 [facility] VITAMIN B12 AND FOLATE 2020-04-01 14:13:00 [facility] LITHI[facility] LEVEL 2020-04-01 14:13:00 [facility] T[facility], FREE 2020-04-01 14:13:00 [facility] BLOOD CULTURE 2020-04-01 14:11:00 [facility] POCT-GLUCOSE METER 2020-04-01 12:22:00 [facility] ECG 12-LEAD 2020-04-01 08:31:07 [facility] SARS-COV2/RT-PCR ([facility] & 2020-04-01 05:24:00 [facility], [facility] REF LABS) [facility] CBC W/PLT COUNT & AUTO 2020-04-01 05:08:00 [facility] BASIC METABOLIC PANEL (7) 2020-04-01 05:08:00 [facility] MAGNESIUM 2020-04-01 05:08:00 [facility] CREATINE KINASE (CK) 2020-04-01 05:08:00 Forrest, [facility] PHOSPHORUS 2020-04-01 05:08:00 Forrest, [facility] PT/APTT 2020-04-01 05:08:00 Forrest, [facility] TROPONIN I 2020-04-01 05:08:[address] [facility] URINALYSIS W/ REFLEX URINE 2020-04-01 05:04:00 Forrest, [facility] Prim[facility] HI [facility] CULTURE [facility] XR CHEST 1 VIEW 2020-04-01 04:58:00 Forrest, [facility] PORTABLE/BEDSIDE [facility] CRITICAL CARE 2020-04-01 04:51:54 Forrest, [facility] ED ECG INTERPRETATION 2020-04-01 04:51:54 Forrest, [facility] Plan of Care Planned Activity Planned Date Details Comments Source Future Scheduled 2020-04-[address] [facility] - Test 00:00:00 [facility]) [code = 982213118] Future Scheduled 2014 SHINGLES VACCINES ([address] [facility] - Test 00:00:00 of 2) [code = SHINGLES Medic al Center VACCINES (1 of 2)] Future Scheduled [address] [facility] - Test 00:00:00 (procedure) [code = Medical Center 15781964] Future Scheduled 2006-10-[address] [facility] - Test 00:00:00 WELLNESS (YEAR 2 or Medical Center FIRST YEAR if no IPPE) [code = MEDICARE ANNUAL WELLNESS (YEAR 2 or FIRST YEAR if no IPPE)] Future Scheduled [address] [facility] - Test 00:00:00 [facility] [place] cervix (procedure) [code = 508503723] Future Scheduled 1983 DTAP/TDAP/TD VACCINES [facility] - Test 00:00:00 (1 - Tdap) [code = Medical C enter DTAP/TDAP/TD VACCINES (1 - Tdap)] Future Scheduled [address] [facility] - Test 00:00:00 0-64 YRS (1 of 1 - Medical C enter PPSV23) [code = PNEUMOCOCCAL VACCINE 0-64 YRS (1 of 1 - PPSV23)] Future Scheduled [address] [facility] - Test 00:00:00 malignant neoplasm of Medica l Center colon (procedure) [code = 170861690] Encounters Start End Encounter Admission Attending Care Care Encounter Source Date/Time Date/Time Type Type Clinicians Facility Department ID 2020-08-20 2020-08-20 [id number] 2020-08-18 2020-08-18 Outpatient [facility] [id number] [facility] 2020-08-16 2020-08-16 Outpatient [facility] [id number] [facility] 2020-08-07 2020-08-07 Out[facility] [id number] [facility] 2020-07-09 2020-07-09 Outpatient [facility] [id number] [facility] 2020-06-13 2020-06-13 [facility] [id number] 11:00:00 11:00:00 [facility] l Medicine Outpati ent Clinics 2020-05-24 2020-05-24 Outpatient AWILDA VERNON MDA MDA [id number] 00:00:00 00:00:00 NEDA melendez 2020-05-23 2020-05-23 Outpatient AWILDA VERNON MDA MDA [id number] 00:00:00 00:00:00 NEDA melendez 2020-05-13 2020-05-13 Outpatient AWILDA SULLIVAN MDA MDA [id number] 00:00:00 00:00:00 FAUSTINO melendez 2020-05-07 2020-05-07 Outpatient AWILDA VERNON MDA MDA [id number] 00:00:00 00:00:00 NEDAJOSE DE JESUS Su so n 2020-05-07 2020-05-07 Outpatient AWILDA VERNON MDA MDA [id number] 00:00:00 00:00:00 NEDA Su so n 2020-04-30 2020-04-30 Outpatient AWILDA POLANCO MDA MDA [id number] MD 09:15:00 23:59:00 LAMBERTO Georges so n 2019-10-18 2019-10-18 [facility] [id number] 08:20:00 08:20:00 [facility] 2019-10-10 2019-10-10 [facility] [id number] 16:00:00 16:00:00 [facility] ent Clinics Results Test Description Test Time Test Comments Results Result Comments Source POC-Glucose meter 2020-04-15 22:17:00 Test Item Value Reference Range Interpretation Comme [facility] POC-Glucose Meter (test code = 124 mg/dL 70-110 H : TESTED AT [facility] [address], [facility] 30: Case Filler/Techni janel ID = [id number] for RAY ERVIN Lab Interpretation (test code = Abnormal 64342-2) [facility] [id number] 22:17:00 Test Item Value Reference Range Interpretation Comments POC-GLUCOSE METER 124 mg/dL 70-110 H : TESTED A T [facility] 6720 ([place]) (test code = [facility] R [facility], 1538) 43194: Case Filler/Techni janel ID = [id number] for RAY MCCLELLAN POCT-GLUCOSE [id number] 12:55:00 Test Item Value Reference Range Interpretation Comments POC-GLUCOSE METER 189 mg/dL 70-110 H : TESTED A T [facility] 6720 (BEAKER) (test code = [facility], 1538) 41270: Case Filler/Techni janel ID = [id number] for LUCAS LOWE POCT-GLUCOSE [id number] 08:26:00 Test Item Value Reference Range Interpretation Comments POC-GLUCOSE METER 123 mg/dL 70-110 H : TESTED A T [facility] 6720 ([facility]) (test code = [facility], 153) 04342: Case Filler/Techni janel ID = [id number] for JOE BINGHAM POCT-GLUCOSE [id number] 21:31:00 Test Item Value Reference Range Interpretation Comments POC-GLUCOSE METER 176 mg/dL 70-110 H : Notified RN/MD: ([facility]) (test code = TESTED AT [facility] 6720 1538) [facility], 26798: Case Filler/Techni janel ID = [id number] for [place], ZAYDA ICE Melba [id number] 11:45:00 Test Item Value Reference Range Interpretation Comments Melba Level (test code = 0.6 mmol/L 0.8-1.2 L 99105-1) Lab Interpretation (test code = Abnormal 58063-7) [facility] [id number] 11:45:00 Test Item Value Reference Range Interpretation Comments LITHIUM LEVEL (BEAKER) (test code 0.6 mmol/L 0.8-1.2 L = 630) POCT-GLUCOSE [id number] 17:15:00 Test Item Value Reference Range Interpretation Comments POC-GLUCOSE METER 128 mg/dL 70-110 H : [facility]ED [facility] ([facility]) (test code = [facility], 153) 94661: Case Filler/Techni janel ID = [id number] for HI LUCAS BETH POCT-GLUCOSE [id number] 12:20:00 Test Item Value Reference Range Interpretation Comments POC-GLUCOSE METER 108 mg/dL 70-110 : [facility]ED [facility] ([facility]) (test code = [facility], 153) 44618: Case Filler/Techni janel ID = [id number] for Sm ith, Elaina POCT-GLUCOSE [id number] 08:34:00 Test Item Value Reference Range Interpretation Comments POC-GLUCOSE METER 115 mg/dL 70-110 H : [facility]ED [facility] ([facility]) (test code = [facility], 153) 48937: Case Filler/Techni janel ID = [id number] for Sm ith, Elaina POCT-GLUCOSE [id number] 20:59:00 Test Item Value Reference Range Interpretation Comments POC-GLUCOSE METER 152 mg/dL 70-110 H : TESTED A T [facility] 6720 ([facility]) (test code = [facility], 1538) 34893: Case Filler/Techni janel ID = [id number] for EMBER SCRUGGS POCT-GLUCOSE [id number] 17:29:00 Test Item Value Reference Range Interpretation Comments POC-GLUCOSE METER 103 mg/dL 70-110 : TESTED A T [facility] 6720 (BEAKER) (test code [facility], = 1538) 60761: Case Filler/Techni janel ID = [id number] for TSEG GAI, TSIGHEREDA POCT-GLUCOSE [id number] 12:22:00 Test Item Value Reference Range Interpretation Comments POC-GLUCOSE METER 204 mg/dL 70-110 H : Notified RN/MD: TESTED ([facility]) (test code AT [facility] 6720 [facility] = 1538) [facility], 770 30: Case Filler/Techni janel ID = [id number] for TSEG GAI, TSIGHEREDA POCT-GLUCOSE [id number] 08:43:00 Test Item Value Reference Range Interpretation Comments POC-GLUCOSE METER 132 mg/dL 70-110 H : TESTED A T [facility] 6720 (AKER) (test code [facility], = 1538) 97167: Case Filler/Techni janel ID = [id number] for TSEG GAI, TSIGHEREDA POCT-GLUCOSE [id number] 07:13:00 Test Item Value Reference Range Interpretation Comments POC-GLUCOSE METER 200 mg/dL 70-110 H : TESTED A T [facility] 6720 (BEAKER) (test code = [facility], 1538) 20798: Case Filler/Techni janel ID = [id number] for OC FELICIA, KULDIP POCT-GLUCOSE [id number] 16:54:00 Test Item Value Reference Range Interpretation Comments POC-GLUCOSE METER 103 mg/dL 70-110 : TESTED A T [facility] 6720 ([facility]) (test code = [facility], 1538) 22494: Case Filler/Techni janel ID = [id number] for HU NT, KATIE POCT-GLUCOSE [id number] 11:03:00 Test Item Value Reference Range Interpretation Comments POC-GLUCOSE METER 155 mg/dL 70-110 H : TESTED A T [facility] 6720 (BEAKER) (test code = [facility], 1538) 25267: Case Filler/Techni janel ID = [id number] for HU NT, KATIE POCT-GLUCOSE [id number] 07:06:00 Test Item Value Reference Range Interpretation Comments POC-GLUCOSE METER 129 mg/dL 70-110 H : TESTED A T [facility] 6720 (BEAKER) (test code = [facility], [facility]8) 57587: Case Filler/Techni janel ID = [id number] for HU NT, KATIE POCT-GLUCOSE [id number] 20:59:00 Test Item Value Reference Range Interpretation Comments POC-GLUCOSE METER 167 mg/dL 70-110 H : TESTED A T [facility] 6720 (BEAKER) (test code = [facility], [facility]) 92757: Case Filler/Techni janel ID = [id number] for KE BE, SAUDATU POCT-GLUCOSE [id number] 17:53:00 Test Item Value Reference Range Interpretation Comments POC-GLUCOSE METER 185 mg/dL 70-110 H : TESTED A T [facility] 6720 (BEAKER) (test code = [facility], [facility]) 06372: Case Filler/Techni janel ID = [id number] for Ma thew, Remyia POCT-GLUCOSE [id number] 11:18:00 Test Item Value Reference Range Interpretation Comments POC-GLUCOSE METER 145 mg/dL 70-110 H : TESTED A T [facility] 6720 (BEAKER) (test code = [facility], [facility]) 71481: Case Filler/Techni janel ID = [id number] for Ma thew, Remyia POCT-GLUCOSE [id number] 07:23:00 Test Item Value Reference Range Interpretation Comments POC-GLUCOSE METER 105 mg/dL 70-110 : TESTED A T [facility] 6720 (BEAKER) (test code = [facility], 1538) 83804: Case Filler/Techni janel ID = [id number] for Ma thew, Remyia Basic Metabolic [id number] 04:32:00 Test Item Value Reference Range Interpretation Comments Sodium (test code = 143 meq/L 702-046 1240-2) Potassium (test code = 4.0 meq/L 3.5-5.1 2823-3) Chloride (test code = 111 meq/L 98-107 H 2075-0) CO2 (test code = 25 meq/L 22-29 2028-9) BUN (test code = 11 mg/dL 7-21 3094-0) Creatinine (test code 0.76 mg/dL 0.57-1.25 = 2160-0) Glucose (test code = 106 mg/dL 70-105 H 2345-7) Calcium (test code = 9.6 mg/dL 8.4-10.2 87761-4) EGFR (test code = 79 mL/min/1.73 [place] [address]-1) NOT ACCURATE CREATININE CLEARANCE IN PREDICTING GLOMERULAR FILTRATION RATE . ESTIMATED GFR I S NOT APPLICABLE FOR DIALYSIS PATIENTS. VIKKI (test code = VIKKI) Case Filler ID - ZAHRA M Lab Interpretation Abnormal (test code = 28047-5) [facility] [id number] 04:32:00 Test Item Value Reference Range Interpretation [...] S NOT APPLICABLE FOR DIALYSIS PATIEN TS. Case Filler ID - ZAHRA MCBC with platelet count + automated [id number] 04:10:00 Test Item Value Reference Range Interpretation Comments WBC (test code = 6690-2) 4.6 See_Comment [A utomated message] The system TopVisible generated this result transmitted ref erence range: 3.5 - 10 .5 K/L. The refe rence range was not u sed to interpret this result as normal/abnor mal. RBC (test code = 789-8) 4.19 See_Comment [Au tomated message] The system TopVisible generated this result transmitted ref erence range: 3.93 - 5 .22 M/L. The refe rence range was not u sed to interpret this result as normal/abnor mal. MCHC (test code = 786-4) 31.9 See_Comment L [A utomated message] The system [employer]Visible generated this result transmitted ref erence range: 32.2 - 3 5.5 GM/DL. The refe rence range was not u sed to interpret this result as normal/abnor mal. Hematocrit (test code = 37.6 % 34.1-44.9 4544-3) MCV (test code = 787-2) 89.7 fL 79.4-94.8 MCH (test code = 785-6) 28.6 pg 25.6-32.2 RDW (test code = 788-0) 13.8 % 11.7-14.4 Platelets (test code = 92 See_Comment L [Aut omated message] 777-3) The system TopVisible generated this result transmitted ref erence range: 150 - 45 0 K/CU MM. The referen ce range was not u sed to interpret this result as normal/abnor mal. MPV (test code = 12.3 fL 9.4-12.3 30649-4) nRBC (test code = 413) 0 See_Comment [Aut omated message] The system TopVisible generated this result transmitted ref erence range: 0 - 0 /1 00 WBC. The refere nce range was not u sed to interpret this result as normal/abnor mal. % Neutros (test code = 48 % 429) % Lymphs (test code = 37 % 430) % Monos (test code = 11 % 431) % Eos (test code = 432) 3 % % Baso (test code = 437) 0 % # Neutros (test code = 2.20 See_Comment [Aut omated message] 670) The system [employer]Visible generated this result transmitted ref erence range: 1.56 - 6 .13 K/L. The refe rence range was not u sed to interpret this result as normal/abnor mal. # Lymphs (test code = 1.69 See_Comment [Auto mated message] 414) The system [employer]Visible generated this result transmitted ref erence range: 1.18 - 3 .74 K/L. The refe rence range was not u sed to interpret this result as normal/abnor mal. # Monos (test code = 0.50 See_Comment H [Autom ated message] 415) The system [employer]Visible generated this result transmitted ref erence range: 0.24 - 0 .36 K/L. The refe rence range was not u sed to interpret this result as normal/abnor mal. # Eos (test code = 416) 0.13 See_Comment [Au tomated message] The system TopVisible generated this result transmitted ref erence range: 0.04 - 0 .36 K/L. The refe rence range was not u sed to interpret this result as normal/abnor mal. # Baso (test code = 417) 0.02 See_Comment [A utomated message] The system TopVisible generated this result transmitted ref erence range: 0.01 - 0 .08 K/L. The refe rence range was not u sed to interpret this result as normal/abnor mal. Immature 0 % 0-1 Granulocytes-Relative (test code = 2801) Lab Interpretation (test Abnormal code = 80078-4) [facility] W/PLT COUNT & AUTO [id number] 04:10:00 Test Item Value Reference Range Interpretation [...] PERCENT (BEAKER) (test code = 2801) POCT-GLUCOSE [id number] 21:41:00 Test Item Value Reference Range Interpretation Comments POC-GLUCOSE METER 130 mg/dL 70-110 H : TESTED A T [facility] 6720 (BEAKER) (test code = [place], 1538) 63197: Case Filler/Techni janel ID = [id number] for SA NTOS, UYEN POCT-GLUCOSE [id number] 17:17:00 Test Item Value Reference Range Interpretation Comments POC-GLUCOSE METER 107 mg/dL 70-110 : TESTED A T [facility] 6720 (BEAKER) (test code = [facility], 153) 59510: Case Filler/Techni janel ID = [id number] for CA STRO, JONAH LITHIUM [id number] 13:12:00 Test Item Value Reference Range Interpretation Comments LITHIUM LEVEL (BEAKER) (test code 0.5 mmol/L 0.8-1.2 L = 630) POCT-GLUCOSE [id number] 07:24:00 Test Item Value Reference Range Interpretation Comments POC-GLUCOSE METER 124 mg/dL 70-110 H : TESTED A T [facility] 6720 (BEAKER) (test code = [facility], 1538) 91757: Case Filler/Techni janel ID = [id number] for CA STRO, JONAH POCT-GLUCOSE [id number] 21:34:00 Test Item Value Reference Range Interpretation Comments POC-GLUCOSE METER 174 mg/dL 70-110 H : TESTED A T [facility] 6720 (BEAKER) (test code = [facility], 1538) 08722: Case Filler/Techni janel ID = [id number] for DE NNIS, BING POCT-GLUCOSE [id number] 18:20:00 Test Item Value Reference Range Interpretation Comments POC-GLUCOSE METER 125 mg/dL 70-110 H : TESTED A T [facility] 6720 (BEAKER) (test code = [facility], 1538) 80729: Case Filler/Techni janel ID = [id number] for HI DALGO, AGLAE POCT-GLUCOSE [id number] 12:47:00 Test Item Value Reference Range Interpretation Comments POC-GLUCOSE METER 100 mg/dL 70-110 : TESTED A T [facility] 6720 (BEAKER) (test code = [facility], 1538) 31583: Case Filler/Techni janel ID = [id number] for HI DALGO, AGLAE Comprehensive metabolic [id number] 04:30:00 Test Item Value Reference Range Interpretation Comments Protein, Total (test 7.5 See_Comment [Autom ated code = 9641-2) message] The system which generated this result transmit jassi reference range : 6.0 - 8.3 gm/dL . The reference range was not u sed to interpret th is result as normal/abnormal . Albumin (test code = 3.7 g/dL 3.5-5 16850-4) Alkaline Phosphatase 94 U/L 40-150 (test code = 6768-6) Total Bilirubin (test 0.9 mg/dL 0.2-1.2 code = 1974-2) Sodium (test code = 141 meq/L 731-837 8592-2) Potassium (test code 4.0 meq/L 3.5-5.1 = 2823-3) Chloride (test code = 110 meq/L 98-107 H 2075-0) CO2 (test code = 23 meq/L 22-29 8-9) BUN (test code = 10 mg/dL 7-21 3094-0) Creatinine (test code 0.72 mg/dL 0.57-1.25 = 2160-0) Glucose (test code = 123 mg/dL 70-105 H 2345-7) Calcium (test code = 9.6 mg/dL 8.4-10.2 60460-0) AST (test code = 28 U/L 5-34 1920-8) ALT (test code = 39 U/L 6-55 1742-6) EGFR (test code = 84 mL/min/1.73 [place] [address]-2) NOT ACCURATE CREATININE CLEARANCE IN PREDICTING GLOMERULAR FILTRATION RATE . ESTIMATED GFR I S NOT APPLICABLE FOR DIALYSIS PATIEN TS. VIKKI (test code = VIKKI) Case Filler ID - PIAYA L Lab Interpretation Abnormal (test code = 92996-6) [facility] [id number] 04:30:00 Test Item Value Reference Range Interpretation [...] S NOT APPLICABLE FOR DIALYSIS PATIEN TS. Case Filler ID - PIAYA LCBC W/PLT COUNT & AUTO [id number] 03:57:00 Test Item Value Reference Range Interpretation [...] PERCENT (BEAKER) (test code = 2801) POCT-GLUCOSE [id number] 21:19:00 Test Item Value Reference Range Interpretation Comments POC-GLUCOSE METER 111 mg/dL 70-110 H : TESTED A T [facility] 6720 (BEAKER) (test code = [facility], 153) 11477: Case Filler/Techni janel ID = [id number] for Neda Pineda POCT-GLUCOSE [id number] 17:31:00 Test Item Value Reference Range Interpretation Comments POC-GLUCOSE METER 106 mg/dL 70-110 : TESTED A T [facility] 6720 (BEAKER) (test code = [facility], 153) 05965: Case Filler/Techni janel ID = [id number] for Caleb Barcenas Blood [id number] 14:00:00 Test Item Value Reference Range Interpretation Comments Result (test code = No growth in 5 days 6463-4) [facility] [id number] 14:00:00 Test Item Value Reference Range Interpretation Comments CULTURE (BEAKER) (test No growth in 5 days code = 1095) POCT-GLUCOSE [id number] 12:14:00 Test Item Value Reference Range Interpretation Comments POC-GLUCOSE METER 113 mg/dL 70-110 H : TESTED A T [facility] 6720 (BEAKER) (test code = [facility] [place], 1538) 32291: Case Filler/Techni janel ID = [id number] for Caleb Barcenas POCT-GLUCOSE [id number] 08:06:00 Test Item Value Reference Range Interpretation Comments POC-GLUCOSE METER 133 mg/dL 70-110 H : TESTED A T [facility] 6720 (BEAKER) (test code = [facility], 1538) 34328: Case Filler/Techni janel ID = [id number] for Ingris Barcenasyia COMPREHENSIVE METABOLIC [id number] 05:57:00 Test Item Value Reference Range Interpretation [...] S NOT APPLICABLE FOR DIALYSIS PATIEN TS. Case Filler ID - PIAYA LCBC W/PLT COUNT & AUTO [id number] 05:15:00 Test Item Value Reference Range Interpretation [...] PERCENT (BEAKER) (test code = 2801) POCT-GLUCOSE [id number] 21:12:00 Test Item Value Reference Range Interpretation Comments POC-GLUCOSE METER 197 mg/dL 70-110 H : TESTED A T [facility] 6720 (BEAKER) (test code = [facility], 1538) 20994: Case Filler/Techni janel ID = [id number] for SUMMER OSWALD BLOOD [id number] 20:00:00 Test Item Value Reference Range Interpretation Comments CULTURE (BEAKER) (test No growth in 5 days code = 1095) Respiratory Panel [id number] 19:01:00 Test Item Value Reference Range Interpretation Comments Human Metapneumovirus Not detected Not detected, (test code = 29005-0) Equivocal Rhinovirus (test code = Not detected Not detected, 90830-5) Equivocal INFLUENZA A (NO Not detected Not detected, SUBTYPE) (test code = Equivocal 95638-0) Influenza A subtype H1 (test code = 98411-5) Influenza A Subtype H3 (test code = 64595-3) Influenza A Subtype H1-2009 (test code = 60852-7) Influenza B (test code Not detected Not detected, = 56971-9) Equivocal Respiratory Syncytial Not detected Not detected, Virus (test code = Equivocal 62658-5) Parainfluenza Virus 1 Not detected Not detected, (test code = 56633-2) Equivocal Parainfluenza Virus 2 Not detected Not detected, (test code = 50407-8) Equivocal Parainfluenza virus 3 Not detected Not detected, (test code = 98765-6) Equivocal Parainfluenza Virus 4 Not detected Not detected, (test code = 14373-9) Equivocal Adenovirus (test code = Not detected Not detected, 82880-0) Equivocal Coronavirus 229E (test Not detected Not detected, code = 14472-1) Equivocal Coronavirus HKU1 (test Not detected Not detected, code = 37959-6) Equivocal Coronavirus NL63 (test Not detected Not detected, code = 14837-8) Equivocal Coronavirus OC43 (test Not detected Not detected, code = 15834-1) Equivocal Bordetella Pertussis Not detected Not detected, (test code = 52442-1) Equivocal Chlamydophila Not detected Not detected, Pneumoniae (test code = Equivocal 88780-2) Mycoplasma Pneumoniae Not detected Not detected, (test code = 14706-0) Equivocal VIKKI (test code = VIKKI) Other [...] [facility] Molecular Diagnostics Laboratory using the Social IQ (Social Influence Quotient)Array Respiratory Panel. It is FDA cleared and has been verified and approved by the [facility] Molecular Diagnostics Laboratory for clinical use on nasopharyngeal swab specimens. The performance of the FilmArray RP has not been established in individuals who received influenza vaccine. Recent administration of a nasal influenza vaccine may cause false positive results for Influenza A and/orInfluenza B. [facility] [id number] 19:01:00 Test Item Value Reference Range Interpretation [...] MEDICAL CENTER Molecular Diagnostics Laboratory using the Social IQ (Social Influence Quotient)Array Respiratory Panel. It is FDA cleared and [...] Verified Date/Time: 04/06/2020 16:45:26 Reading Location: [address] Transitional Reading Room CT chest for [...] Verified Date/Time: 04/06/2020 16:45:26 Reading Location: [address] Transitional Reading Room [facility] 14:25:00 Test Item Value Reference Range Interpretation Comments PTT (test code = 31.0 See_Comment [Automated 51290-8) message] The system which generated this result transmitted reference range : 22.5 - 36.0 seconds. The reference range was not used to interpret this result as normal/abnormal . VIKKI (test code = VIKKI) 6 hours after starting heparin infusion and as indicated per sliding scale Lab Interpretation Normal (test code = 60120-6) [facility]TT[facility] 14:25:00 Test Item Value Reference Range Interpretation Comments PARTIAL THROMBOPLASTIN TIME 31.0 seconds 22.5-36.0 (BEAKER) (test code = 760) 6 hours after starting heparin infusion and as indicated per sliding scalePOCT- GLUCOSE [id number] 12:08:00 Test Item Value Reference Range Interpretation Comments POC-GLUCOSE METER 135 mg/dL 70-110 H : TESTED A T [facility] 6720 (BEAKER) (test code = [facility], 1538) 14154: Case Filler/Techni janel ID = [id number] for PO IRIER, JEREMY ECG 12 [id number] 11:22:15Interface, External Ris In - 04/06/2020 11:22 AM CDTVentricular Rate 119 BPMAtrial Rate 119 BPMP-R Interval 128 msQRS Duration 84 msQ-T Interval 308 msQTC Calculation(Bazett) 433 msP Jenera 68 degreesR Jenera 64 degreesT Jenera 55 degreesSinus tachycardiaOtherwise normal ECGConfirmed by MD ESTELLE, ELVIA ([id number]) on 04/06/2020 11:22:13 [facility] [id number] 07:52:00 Test Item Value Reference Range Interpretation Comments POC-GLUCOSE METER 128 mg/dL 70-110 H : TESTED A T [facility] 6720 (BEAKER) (test code = BAKARIMARITZA B[facility], 1538) 42258: Case Filler/Techni janel ID = [id number] for PO IRIER, JEREMY COMPREHENSIVE METABOLIC [id number] 04:36:00 Test Item Value Reference Range Interpretation [...] S NOT APPLICABLE FOR DIALYSIS PATIEN TS. Case Filler ID - PIAYA [id number] 04:10:00 Test Item Value Reference Range Interpretation Comments PARTIAL THROMBOPLASTIN TIME 29.3 seconds 22.5-36.0 (BEAKER) (test code = 760) Prior to initiating heparinCBC W/PLT COUNT & AUTO [id number] 04:02:00 Test Item Value Reference Range Interpretation [...] = 2801) Urinalysis w/Microscopic + Reflex to [id number] 00:18:00 Test Item Value Reference Range Interpretation Comments Color, UA (test code Yellow = 5778-6) Clarity, UA (test Clear code = 5767-9) Specific Th[place]morton, UA 1.015 1.001-1.035 (test code = 5811-5) pH, UA (test code = 7.0 5.0-8.0 5803-2) Protein, UA (test Negative Negative code = 90869-0) Glucose, UA (test Negative Negative code = 365) Ketones, UA (test Negative Negative code = 2514-8) Bilirubin, UA (test Negative Negative code = 38151-7) Blood, UA (test code Negative Negative = 55131-8) Nitrite, UA (test Negative Negative code = 5802-4) Leukocytes, UA (test Moderate Negative A code = 5799-2) Urobilinogen, UA 6.0 mg/dL 0.2-1 H (test code = 55731-2) RBC, UA (test code = <1 See_Comment [Autom ated 60338-1) message] The system which generated this result transmitted reference range : /HPF. The reference range was not used to interpret this result as normal/abnormal . WBC, UA (test code = 14 See_Comment [Autom ated 5821-4) message] The system which generated this result transmitted reference range : /HPF. The reference range was not used to interpret this result as normal/abnormal . Bacteria, UA (test Occasional code = 50793-5) Squam Epithel, UA 5 See_Comment [Automate d (test code = 69354-9) messag e] The system which generated this result transmitted reference range : /HPF. The reference range was not used to interpret this result as normal/abnormal . Specimen Source (test code = 2795) VIKKI (test code = VIKKI) Case Filler ID - [auto]Case Filler ID - ann Lab Interpretation Abnormal (test code = 71171-9) [facility]/ [facility]FLEX URINE [id number] 00:18:00 Test Item Value Reference Range Interpretation [...] = 516) SOURCE(BEAKER) (test code = 2795) Case Filler ID - [auto]Case Filler ID - hankPOCT-GLUCOSE [id number] 23:31:00 Test Item Value Reference Range Interpretation Comments POC-GLUCOSE METER 137 mg/dL 70-110 H : TESTED A T [facility] 6720 (BEAKER) (test code = [place], 1538) 94500: Case Filler/Techni janel ID = [id number] for CH UA, HENRISON [id number] 19:18:00 Test Item Value Reference Range Interpretation Comments Magnesium (test code = 1.6 mg/dL 1.6-2.6 72990-6) VIKKI (test code = VIKKI) Case Filler ID - DB Lab Interpretation (test Normal code = 87060-3) [facility] CenterPhosphorus2020-05-29 19:18:00 Test Item Value Reference Range Interpretation Comments Phosphorus (test code = 2.9 mg/dL 2.3-4.7 2777-1) VIKKI (test code = VIKKI) Case Filler ID - DB Lab Interpretation (test Normal code = 06864-5) [facility] CenterPHOSPHORUS2020-05-29 19:18:00 Test Item Value Reference Range Interpretation Comments PHOSPHORUS (BEAKER) (test code = 2.9 mg/dL 2.3-4.7 604) Case Filler ID - [id number] 19:18:00 Test Item Value Reference Range Interpretation Comments MAGNESIUM (BEAKER) (test code = 1.6 mg/dL 1.6-2.6 627) Case Filler ID - DBBASIC METABOLIC [id number] 19:18:00 Test Item Value Reference Range Interpretation [...] S NOT APPLICABLE FOR DIALYSIS PATIEN TS. Case Filler ID - [id number] 19:09:00 Test Item Value Reference Range Interpretation Comments D-Dimer, Quant (test 0.89 See_Comment H [Autom ated code = 09006-6) message] The system which generated this result transmitted reference range : <0.50 MG/L FEU. The reference range was not used to interpr et this result as normal/abnormal . VIKKI (test code = VIKKI) Intended Use: [...] thrombosis is within 95-100% range. Lab Interpretation Abnormal (test code = 18410-7) [facility] (Symptomatic ONLY)2020-04-05 19:09:00 Test Item Value Reference Range Interpretation Comments SARS-COV2/RT-PCR Not Detected Not Detected, (test code = Negative 12114-3) SARS-COV-2 [facility] PERFORMING LAB (test code = 64424-4) VIKKI (test code = Negative results do [...] of the Act. Fact Sheet for Healthcare Providers:https://www.MoneyDesktop/Documents/Xper t%20Xpress%20SARS%20CoV- 2/Fact%20Sheets/3023802 %51ASPD-BQS-4%20HEALTHCA RE%20PROVIDERS%20FACT%20 SHEET.pdf Fact Sheet for Healthcare Patients:https://www.[employer].Schoolwires/Documents/Xpert %20Xpress%20SARS%20CoV-2 /Fact%20Sheets/3023801% 48BWOG-VIT-8%20PATIENT%2 0FACT%20SHEET.pdf Performing Laboratory:[facility] [place] [address] [facility] CenterD-[id number] 19:09:00 Test Item Value Reference Range Interpretation [...] of thrombosis is within 95-100% range. SARS-COV2/RT-PCR ([facility])2020-04-05 19:09:00 Test Item Value Reference Range Interpretation Comments SARS-COV2/RT-PCR (test Not Detected Not Detected, Negative code = 0505838) SARS-COV-2 PERFORMING LAB [facility] (test code = 3250915) Negative results do not preclude SARS-CoV-2 infection [...] of the Act.Fact Sheet for Healthcare Pro viders:https://www.[employer]Dog [employer].Schoolwires/Documents/Xpert%20Xpress%20SARS%20CoV-2/Fact%20Sh eets/302-1816%73DLZL-TDU-1%20HEALTHCARE%20PROVIDERS%20FACT%20SHEET.pdfFact Sheet for Healthcare Patients:https://www.Document Agility.Schoolwires/Documents/Xpert%20Xpress%20SARS%20CoV-2/Fact%20Sheets/302-3801%20SARS-COV -2%20PATIENT%20FACT%20SHEET.pdfPerforming Laboratory:[facility], [place] [address]NOR W/PLT COUNT & AUTO DIFFERENTIAL 2020-04-05 19:01:00 [...] = 2801) RAD, CHEST, 1 VIEW, NON [id number] 17:16:00Reason for exam:->sob, feverShould this be performed at the bedside?->YesFINAL REPORT TECHNIQUE: Frontal chest radiograph dated 04/05/2020. CLINICAL HISTORY: SOB, Fever COMPARISON STUDY: Chest radiograph dated 04/01/2020 IMPRESSION:Endotracheal and enteric tubes have been removed. Lungs are clear. No pleural effusion or pneumothorax. Cardiomediastinalsilhouette is normal in size. No pulmonary edema. No fracture. Signed: Douglas Hale MDReport Verified Date/Time: 04/05/2020 17:16:45 Reading Location: [address] Transitional Reading Room XR chest 1 view portable / [id number] 17:16:00 Interface, External Ris In - 04/05/2020 5:18 PM CDTFINAL REPORT TECHNIQUE: Frontal chest radiograph dated 04/05/2020. CLINICAL HISTORY: SOB, Fever COMPARISON STUDY: Chest radiograph dated 04/01/2020 IMPRESSION:Endotracheal and enteric tubes have been removed. Lungs are clear. No pleural effusion or pneumothorax. Cardiomediastinal silhouette is normal in size. No pulmonary edema. No fracture. Signed: Douglas Hale MDReport Verified Date/Time: 04/05/2020 17:16:45 Reading Location: [address] Transitional Reading Room [facility]PO[facility] [id number] 17:04:00 Test Item Value Reference Range Interpretation Comments POC-GLUCOSE METER 128 mg/dL 70-110 H : TESTED A T [facility] 6720 (BEAKER) (test code = [facility], 153) 27484: Case Filler/Techni janel ID = [id number] for RO DGERS, JAMECA Lactic acid, [id number] 16:47:00 Test Item Value Reference Range Interpretation Comments Lactate, Venous (test code = 1.24 mmol/L 0.5-2.2 2872) VIKKI (test code = VIKKI) Case Filler ID - DB Lab Interpretation (test Normal code = 02284-8) [facility], [id number] 16:47:00 Test Item Value Reference Range Interpretation Comments LACTATE BLOOD VENOUS (2) (BEAKER) 1.24 mmol/L 0.50-2.20 (test code = 2872) Case Filler ID - DBPOCT-GLUCOSE [id number] 11:33:00 Test Item Value Reference Range Interpretation Comments POC-GLUCOSE METER 92 mg/dL 70-110 : TESTED A T [facility] 6720 (BEAKER) (test code = [facility], 153) 37860: Case Filler/Techni janel ID = [id number] for RODG ERS, ESCOBARECA POCT-GLUCOSE [id number] 08:34:00 Test Item Value Reference Range Interpretation Comments POC-GLUCOSE METER 136 mg/dL 70-110 H : TESTED A T [facility] 6720 (BEAKER) (test code = [facility], 153) 95659: Case Filler/Techni janel ID = [id number] for RO DGERS, JAMECA POCT-GLUCOSE [id number] 21:09:00 Test Item Value Reference Range Interpretation Comments POC-GLUCOSE METER 93 mg/dL 70-110 : TESTED A T [facility] 6720 (BEAKER) (test code = [facility], 153) 25839: Case Filler/Techni janel ID = [id number] for DILCIA Z, NADINA POCT-GLUCOSE [id number] 18:02:00 Test Item Value Reference Range Interpretation Comments POC-GLUCOSE METER 84 mg/dL 70-110 : TESTED A T [facility] 6720 (BEAKER) (test code = [facility], 153) 83694: Case Filler/Techni janel ID = [id number] for DARYA SEWELL Hepatic function [id number] 16:01:00 Test Item Value Reference Range Interpretation Comments Protein, Total (test 7.4 See_Comment [Autom ated code = 2885-2) message] The system which generated this result transmit jassi reference range : 6.0 - 8.3 gm/dL . The reference range was not u sed to interpret th is result as normal/abnormal . Albumin (test code = 3.8 g/dL 3.5-5 10821-3) Total Bilirubin (test 1.4 mg/dL 0.2-1.2 H code = 1975-2) Bilirubin, Direct 0.7 mg/dL 0.1-0.5 H (test code = 1968-7) Alkaline Phosphatase 102 U/L 40-150 (test code = 6768-6) AST (test code = 67 U/L 5-34 H 1920-8) ALT (test code = 40 U/L 6-55 1742-6) VIKKI (test code = VIKKI) Case Filler ID - NTP Lab Interpretation Abnormal (test code = 23702-7) [facility] Center[facility] [id number] 16:01:00 Test Item Value Reference Range Interpretation [...] (test code = 40 U/L 6-55 347) Case Filler ID - NTPCBC W/PLT COUNT & AUTO [id number] 15:40:00 Test Item Value Reference Range Interpretation [...] PERCENT (BEAKER) (test code = 2801) POCT-GLUCOSE [id number] 11:53:00 Test Item Value Reference Range Interpretation Comments POC-GLUCOSE METER 94 mg/dL 70-110 : TESTED A T [facility] 6720 (BEAKER) (test code = ALE[facility]ANDER [place], 1538) 968[address]: Case Filler/Techni janel ID = [id number] for CASE Melendez, DARYA POCT-GLUCOSE [id number] 09:06:00 Test Item Value Reference Range Interpretation Comments POC-GLUCOSE METER 114 mg/dL 70-110 H : TESTED A T [facility] 6720 (BEAKER) (test code = [facility] Bunn [facility], 1538) 03095: Case Filler/Techni janel ID = [id number] for MARCIAL OWN, DARYA [id number] 06:19:00 Test Item Value Reference Range Interpretation Comments MAGNESIUM (BEAKER) (test code = 1.8 mg/dL 1.6-2.6 627) Case Filler DEEPA SWEENEY MBASIC METABOLIC [id number] 06:19:00 Test Item Value Reference Range Interpretation [...] S NOT APPLICABLE FOR DIALYSIS PATIEN TS. Case Filler ID - ZAHRA [id number] 06:19:00 Test Item Value Reference Range Interpretation Comments PHOSPHORUS (BEAKER) (test code = 3.8 mg/dL 2.3-4.7 604) Case Filler ID Caroline SWEENEY MCBC W/PLT COUNT & AUTO [id number] 05:56:00 Test Item Value Reference Range Interpretation [...] PERCENT (BEAKER) (test code = 2801) POCT-GLUCOSE [id number] 22:05:00 Test Item Value Reference Range Interpretation Comments POC-GLUCOSE METER 110 mg/dL 70-110 : TESTED A T [facility] 6720 (BEAKER) (test code = [facility], 1538) 56530: Case Filler/Techni janel ID = [id number] for [place] JOSE C PAIGE POCT-GLUCOSE [id number] 18:00:00 Test Item Value Reference Range Interpretation Comments POC-GLUCOSE METER 127 mg/dL 70-110 H : TESTED A T [facility] 6720 (BEAKER) (test code = [facility], 1538) 01914: Case Filler/Techni janel ID = [id number] for Sm ith, Elaina POCT-GLUCOSE [id number] 11:47:00 Test Item Value Reference Range Interpretation Comments POC-GLUCOSE METER 100 mg/dL 70-110 : TESTED A T [facility] 6720 (BEAKER) (test code = [facility], 1538) 22188: Case Filler/Techni janel ID = [id number] for Sm ith, Elaina Hemoglobin [id number] 10:02:00 Test Item Value Reference Range Interpretation Comments Hemoglobin A1C (test code = 4548-4) 6.0 % 4.3-6.1 Lab Interpretation (test code = Normal 07723-9) [facility] CenterHEMOGLOBIN [id number] 10:02:00 Test Item Value Reference Range Interpretation Comments HEMOGLOBIN A1C (BEAKER) (test code = 6.0 % 4.3-6.1 368) POCT-GLUCOSE [id number] 07:38:00 Test Item Value Reference Range Interpretation Comments POC-GLUCOSE METER 115 mg/dL 70-110 H : TESTED A T [facility] 6720 (BEAKER) (test code = [facility], 153) 74339: Case Filler/Techni janel ID = [id number] for Sm ith, Elaina U/S, ABDOMINAL, [id number] 06:20:00Abdomen limited area? Add comment if clarification [...] MDReport Verified Date/Time: 04/03/2020 06:20:42 US abdomen limited 2020-04-03 06:20:00Interface, External Ris In - 04/03/2020 6:23 [...] veins are patent. Impression: Coarsened hepatic parenchymal echoge nicity with a subtle nodular contour suggesting underlying cirrhosis. Subtle, 2.1 x 2.0 x 1.8 cm nodular focus in the inferior right liver could reflect a hepatic mass. Better characterization with liver protocol MRI is recommended. Signed: Leighton Walker MDReport Verified Date/Time: 04/03/2020 06:20:42 [facility]2020-[facility] 04:33:00 Test Item Value Reference Range Interpretation Comments PHOSPHORUS (BEAKER) (test code = 3.3 mg/dL 2.3-4.7 604) Case Filler ID - DELFINO [id number] 04:33:00 Test Item Value Reference Range Interpretation Comments MAGNESIUM (BEAKER) (test code = 1.8 mg/dL 1.6-2.6 627) Case Filler ID - DELFINO LBASIC METABOLIC [id number] 04:33:00 Test Item Value Reference Range Interpretation [...] S NOT APPLICABLE FOR DIALYSIS PATIEN TS. Case Filler ID - PIAYA LHEPATIC FUNCTION [id number] 04:33:00 Test Item Value Reference Range Interpretation [...] (test code = 32 U/L 6-55 347) Case Filler ID - DELFINO LCBC W/PLT COUNT & AUTO [id number] 04:08:00 Test Item Value Reference Range Interpretation [...] PERCENT (BEAKER) (test code = 2801) POCT-GLUCOSE [id number] 21:20:00 Test Item Value Reference Range Interpretation Comments POC-GLUCOSE METER 144 mg/dL 70-110 H : Notified RN/MD: (BEAKER) (test code = TESTED AT [facility] 6720 1538) [facility], [address]: Case Filler/Techni janel ID = [id number] for ZAYDA LANDON MR, BRAIN, WITHOUT [id number] 20:37:00FINAL REPORT MR, BRAIN, WITHOUT CONTRAST INDICATION: [...] Date/Time: 04/02/2020 20:37:03 MR brain without IV [id number] 20:37:00Interface, External Ris In - 04/02/2020 8:39 [...] IMPRESSION:No acute intracranial abnormality. Signed: Parvin More MDReport Verified Date/Time: 04/02/2020 20:37:03 [facility]PO[facility] [id number] 17:29:00 Test Item Value Reference Range Interpretation Comments POC-GLUCOSE METER 131 mg/dL 70-110 H : TESTED A T [facility] 6720 (BEAKER) (test code = ALE[facility]AND[facility] Bunn [facility], 1538) 47329: Case Filler/Techni janel ID = [id number] for KATIE ZAMORA LITHIUM [id number] 16:31:00 Test Item Value Reference Range Interpretation Comments LITHIUM LEVEL (BEAKER) < mmol/L 0.8-1.2 L This test was performed (test code = 630) at:[facility] , [facility], [address] [place] [address] Rapid drug screen, [id number] 13:58:00 Test Item Value Reference Range Interpretation Comments Barbiturate Screen Negative Negative (test code = 39000-4) Benzodiazepine Screen Positive Negative A (test code = 11544-0) Cocaine (Metab.) Negative Negative Screen (test code = 3397-7) Methadone Screen (test Negative Negative code = 99623-9) Opiate Screen (test Negative Negative code = 33108-9) Cannabinoid Screen Negative Negative (test code = 39039-0) Amph/Methamph Screen Negative Negative (test code = 29447-7) Phencyclidine Screen Negative Negative (test code = 39881-6) pH, UA (test code = 6.5 5.0-8.0 5803-2) VIKKI (test code = VIKKI) DRUG CUTOFF CONC.Cocaine 300 ng/mL Cannabinoid 50 ng/mLBenzodiazepine 200 ng/mLBarbiturate 200 ng/mLPhencyclidine 25 ng/mLOpiate 300 ng/mLMethadone 300 ng/mLAmphetamine/ 1000 ng/mL Methamphetamine This assay provides an unconfirmed qualitative test result for the clinical management of patients in emergency situations. Chain of custody not maintained. Some fqgl-sgq-tmkiuax medications, as well as adulterants, may cause inaccurate results. Clinical correlation should be applied. A more comprehensive drug screen or confirmation of a detected drug may be performed upon request.Case Filler ID - ADMIN Lab Interpretation Abnormal (test code = 31819-2) [facility] CenterRAPID DRUG SCREEN, [id number] 13:58:00 Test Item Value Reference Range Interpretation [...] situations. Chain of custody not maintained. Some rddl-qif-bgaaswx medications, as well as adulterants, may cause inaccurate results. Clinical correlation should be applied. A more comprehensivedrug screen or confirmation of a detected drug may be performed upon request.Case Filler ID - ADMINEEG W VID 12-26 HR CONTINUOUS MONITORING (VEEG)2020-04-02 13:28:00Reason for exam:- >SEIZURES Should this be performed at the bedside?->YesDate of EE04/01/2020 to 04/02/2020 DATE OF REPORT: 04/02/2020 ACC: [id number] EEG Number: [id number] Start time: 04/01/2020 @ 14:41 PM Stop time: 04/02/2020 @ 11:30 AM ICD-10: R56.9 CPT Code: 96306 HISTORY: 54 y.o. Female with ADHD, bipolar [...] Attending EEG 12-26 HR Continuous Monitoring with [id number] 13:28:00 Interface, External Ris In - 04/02/2020 1:28 PM CDTDate of EE04/01/2020 to 04/02/2020 DATE OF REPORT: 04/02/2020 ACC: [id number] EEG Number: [id number] Start time: 04/01/2020 @ 14:41 PM Stop time: 04/02/2020 @ 11:30 AM ICD-10: R56.9 CPT Code: 37178 HISTORY: 54 y.o. Female with ADHD, bipolar [...] by: ELVIE MCKAY MD on 04/02/2020 01:28 [facility]2020-05-26 12:55:00 Test Item Value Reference Range Interpretation Comments Ammonia (test code = 60 See_Comment [Autom ated 06166-2) message] The system which generated this result transmit jassi reference range : 18 - 72 mol/L . The reference range was not u sed to interpret th is result as normal/abnormal . VIKKI (test code = VIKKI) Case Filler ID - ABILIO Mota Lab Interpretation Normal (test code = 09613-0) [facility]2020-05-26 12:55:00 Test Item Value Reference Range Interpretation Comments AMMONIA (BEAKER) (test code = 348) 60 mol/L 18-72 Case Filler ID - ABILIO EPOCT-GLUCOSE [id number] 11:12:00 Test Item Value Reference Range Interpretation Comments POC-GLUCOSE METER 165 mg/dL 70-110 H : TESTED A T [facility] 6720 (BEAKER) (test code = [facility], 1538) 74669: Case Filler/Techni janel ID = [id number] for KATIE ZAMORA POCT-GLUCOSE [id number] 08:44:00 Test Item Value Reference Range Interpretation Comments POC-GLUCOSE METER 97 mg/dL 70-110 : TESTED A T [facility] 6720 (BEAKER) (test code = [facility], 1538) 23395: Case Filler/Techni janel ID = [id number] for HARIS FUCHS BASIC METABOLIC [id number] 05:35:00 Test Item Value Reference Range Interpretation [...] S NOT APPLICABLE FOR DIALYSIS PATIEN TS. Case Filler ID - LACBC W/PLT COUNT & AUTO [id number] 05:04:00 Test Item Value Reference Range Interpretation [...] PERCENT (BEAKER) (test code = 2801) POCT-GLUCOSE [id number] 02:05:00 Test Item Value Reference Range Interpretation Comments POC-GLUCOSE METER 116 mg/dL 70-110 H : TESTED A T [facility] 6720 (BEAKER) (test code = [facility], 1538) 81488: Case Filler/Techni janel ID = [id number] for Neda Pineda T4, [id number] 20:56:00 Test Item Value Reference Range Interpretation Comments Free T4 (test code = 1.19 ng/dL 0.7-1.48 3024-7) VIKKI (test code = VIKKI) Case Filler ID - NTP Lab Interpretation (test Normal code = 91923-5) [facility] CenterT4, [id number] 20:56:00 Test Item Value Reference Range Interpretation Comments FREE T4 (BEAKER) (test code = 655) 1.19 ng/dL 0.70-1.48 Case Filler ID - NTPPOCT-GLUCOSE [id number] 20:54:00 Test Item Value Reference Range Interpretation Comments POC-GLUCOSE METER 99 mg/dL 70-110 : TESTED A T [facility] 6720 (BEAKER) (test code = [facility], 1538) 75189: Case Filler/Techni janel ID = [id number] for DUNG DOWLING TSH/Free T4 If [id number] 20:18:00 Test Item Value Reference Range Interpretation Comments TSH (test code = 0.057 See_Comment L [Automated 66640-7) message] The system which generated this result transmit jassi reference range : 0.350 - 4.940 uIU/mL. The reference range was not used to interpret this result as normal/abnormal . VIKKI (test code = VIKKI) Case Filler ID - NTP Lab Interpretation Abnormal (test code = 26842-7) [facility] CenterTSH/FREE T4 IF [id number] 20:18:00 Test Item Value Reference Range Interpretation Comments THYROID STIMULATING HORMONE 0.057 uIU/mL 0.350-4.940 L (BEAKER) (test code = 772) Case Filler ID - NTPVitamin B12 and [id number] 20:07:00 Test Item Value Reference Range Interpretation Comments Vitamin B12 (test 929 pg/mL 213-816 H code = 2132-9) Folate (test code = 15.80 ng/mL See_Comment [Automa jassi 2284-8) message] The system which generated this result transmit jassi reference range : >=7.00. The reference range was not used to interpret this result as normal/abnormal . VIKKI (test code = VIKKI) Case Filler ID - NTP Lab Interpretation Abnormal (test code = 77754-6) [facility] CenterVITAMIN B12 AND [id number] 20:07:00 Test Item Value Reference Range Interpretation Comments VITAMIN B12 (BEAKER) (test code = 929 pg/mL 213-816 H 774) FOLATE (BEAKER) (test code = 362) 15.80 ng/mL >=7.00 Case Filler ID - NTPHEPATIC FUNCTION [id number] 19:32:00 Test Item Value Reference Range Interpretation [...] (test code = 31 U/L 6-55 347) Case Filler ID - NTPPOCT-GLUCOSE [id number] 18:09:00 Test Item Value Reference Range Interpretation Comments POC-GLUCOSE METER 96 mg/dL 70-110 : TESTED A T [facility] 6720 (BEAKER) (test code = [facility] Jdguanjia [facility], 1538) [address]: Case Filler/Techni janel ID = [id number] for DOUGLAS JACQUI SLY POCT-GLUCOSE [id number] 12:33:00 Test Item Value Reference Range Interpretation Comments POC-GLUCOSE METER 102 mg/dL 70-110 : TESTED A T [facility] 6720 (BEAKER) (test code = [facility], 1538) [address]87: Case Filler/Techni janel ID = [id number] for AK INSONU, JOSEPHINE Troponin [id number] 07:53:00 Test Item Value Reference Range Interpretation Comments Troponin I (test code = 0.01 ng/mL 0-0.03 09898-7) VIKKI (test code = VIKKI) Troponin I [...] NTP Lab Interpretation (test Normal code = 07903-2) [facility] CenterTRANMED [facility]ALTH REHABILITATION HOSPITALNIN [id number] 07:53:00 Test Item Value Reference Range Interpretation [...] failure, acidosis, acute neurological disease, and persistent tachyarrhythmia.Case Filler ID - NTPSARS-COV2/RT-PCR ([facility])2020-04-01 06:29:00 Test Item Value Reference Range Interpretation Comments SARS-COV2/RT-PCR (test Not Detected Not Detected, Negative code = 4104863) SARS-COV-2 PERFORMING LAB [facility] (test code = 0070007) Negative results do not preclude SARS-CoV-2 infection [...] of the Act.Fact Sheet for Healthcare Pro viders:https://www.Ubisense/Documents/Xpert%20Xpress%20SARS%20CoV-2/Fact%20Sh eets/302-3802%11SDPP-NGD-8%20HEALTHCARE%20PROVIDERS%20FACT%20SHEET.pdfFact Sheet for Healthcare Patients:https://www.StudyApps/Documents/Xpert%20Xpress%20SARS%20CoV-2/Fact%20Sheets/302-3801%20SARS-COV -2%20PATIENT%20FACT%20SHEET.pdfPerforming Laboratory:[facility] [place] [address].[place], [place] [address]YRL W/PLT COUNT & AUTO DIFFERENTIAL 2020-04-01 05:56:00 [...] code = 2801) URINALYSIS W/ REFLEX URINE [id number] 05:55:00 Test Item Value Reference Range Interpretation [...] = 1584) SOURCE(BEAKER) (test code = 2795) Case Filler ID - [auto]Case Filler ID - techCreatine Kinase (CK)2020-04-01 05:42:00 Test Item Value Reference Range Interpretation Comments Total CK (test code = 79 U/L 29-200 2157-6) VIKKI (test code = VIKKI) Case Filler ID - ZAHRA M Lab Interpretation (test Normal code = 09522-6) [facility] CenterPHOSPHORUS2020-05-25 05:42:00 Test Item Value Reference Range Interpretation Comments PHOSPHORUS (BEAKER) (test code = 3.0 mg/dL 2.3-4.7 604) Case Filler ID - ZAHRA [id number] 05:42:00 Test Item Value Reference Range Interpretation Comments MAGNESIUM (BEAKER) (test code = 2.1 mg/dL 1.6-2.6 627) Case Filler ID - ZAHRA MBASIC METABOLIC [id number] 05:42:00 Test Item Value Reference Range Interpretation [...] S NOT APPLICABLE FOR DIALYSIS PATIEN TS. Case Filler ID - ZAHRA MCREATINE KINASE (CK)2020-04-01 05:42:00 Test Item Value Reference Range Interpretation Comments CREATINE KINASE TOTAL (BEAKER) (test 79 U/L code = 380) Case Filler ID - ZAHRA MPT/[id number] 05:34:00 Test Item Value Reference Interpretation Comments Range Protime (test code = 15.4 See_Comment H [Autom ated 7562-2) message] The system which generated this result transmitted reference range : 11.9 - 14.2 seconds. The reference range was not used to interpret this result as normal/abnormal . INR (test code = 1.3 See_Comment [Automated 2401-6) message] The system which generated this result transmitted reference range : <=5.9. The reference range was not used to interpret this result as normal/abnormal . PTT (test code = 25.8 See_Comment [Automated 06988-2) message] The system which generated this result transmitted reference range : 22.5 - 36.0 seconds. The reference range was not used to interpret this result as normal/abnormal . VIKKI (test code = Effective 04/05/2019: VIKKI) PT Reference Range ChangeNew: 11.9-14.2 Previous: 11.7-14.7 RECOMMENDED COUMADIN/WARFARIN INR THERAPY RANGESSTANDARD DOSE: 2.0-3.0 Includes: PROPHYLAXIS for venous thrombosis, systemic embolization; TREATMENT for venous thrombosis and/or pulmonary embolus.HIGH RISK: Target INR is 2.5-3.5 for patients wiht mechanical heart valves. Lab Interpretation Abnormal (test code = 44648-7) [facility] CenterPT/[id number] 05:34:00 Test Item Value Reference Range Interpretation [...] mechanical heart valves.RAD, CHEST, 1 VIEW, NON [id number] 05:12:00Reason for exam:->post intubationIs the patient ?->Unknown FINAL REPORT History: Intubation. Comparison: 04/24/2016 Findings: A [...] Leighton Walker MDReport Verified Date/Time: 04/01/2020 05:12:05 Electr onically signed by: LEIGHTON WALKER M.D. 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 The ECG is interpreted as sinus tachycardia. Rate is tachycardic. Heart rate is 111 BPM.ST segments normal. T waves normal. Jenera is normal. Other findings include: prolonged QTc interval. Clinical Impression: non-specific ECGECG reviewed and does not meet STEMI criteria. Patient tolerance: Patient tolerated the procedure well with no immediate complicationsCH[facility] Glucose, [id number] 05:26:00 Test Item Value Reference Range Interpretation Comments POC Glucose (test 136 mg/dL 70-115 H Notify RN or MDIf you code = POCGLUC) consider you r patient critically ill, the Moira Accu-Chek InformII metershould not be used for Glucose determinations. Draw a venous Glucose and send to the Main Lab for Analysis. [id number] 08:15:00 Test Item Value Reference Range Interpretation Comments Melba (test code = LI) 0.44 mmol/L 0.6-1.2 L POC Glucose, [id number] 05:37:00 Test Item Value Reference Range Interpretation Comments POC Glucose (test 134 mg/dL 70-115 H If you con casting machine service operator your code = POCGLUC) patient crit ically ill, the Moira Accu- Chek InformII meters hould not be used for Glu cose determinations. Draw a venous Glucose and send to the Main Lab for Analysis. POC Glucose, [id number] 07:28:00 Test Item Value Reference Range Interpretation Comments POC Glucose (test 128 mg/dL 70-115 H If you con casting machine service operator your code = POCGLUC) patient crit ically ill, the [facility] Accu- Chek InformII meters hould not be used for Glu cose determinations. Draw a venous Glucose and send to the Main Lab for Analysis. POC Glucose, [id number] 20:18:00 Test Item Value Reference Range Interpretation Comments POC Glucose (test 121 mg/dL 70-115 H If you con casting machine service operator your code = POCGLUC) patient crit ically ill, the [facility] Accu- Chek InformII meters hould not be used for Glu cose determinations. Draw a venous Glucose and send to the Main Lab for Analysis. BHCG, Serum, [id number] 22:36:00 Test Item Value Reference Range Interpretation Comments Preg Qual [Se] (test code = BSHCG) Negative Negative N POC Glucose, [id number] 15:14:00 Test Item Value Reference Range Interpretation Comments POC Glucose (test 117 mg/dL 70-115 H If you con casting machine service operator your code = POCGLUC) patient crit ically ill, the [facility] Accu- Chek InformII meters hould not be used for Glu cose determinations. Draw a venous Glucose and send to the Main Lab for Analysis.
--- NOTE | 2021-01-28 15:37 | ER ---
Nurse's Notes [facility] Name: Wendi Norton Age: 55 yrs Sex: Female : 1965 Arrival Date: 01/28/2021 Time: 11:57 Bed Waiting Private MD: Diagnosis: Presentation: 01/28 12:03 Chief complaint: Bilateral foot pain that radiates to knees x 3 days. Coronavirus hb screen: At this time, the client does not indicate any symptoms associated with coronavirus-19. Ebola Screen: No symptoms or risks identified at this time. Initial Sepsis Screen: Does the patient meet any 2 criteria? No. Patient's initial sepsis screen is negative. Does the patient have a suspected source of infection? No. Patient's initial sepsis screen is negative. Risk Assessment: Do you want to hurt yourself or someone else? Patient reports no desire to harm self or others. Onset of symptoms was January 25, 2021. 12:03 Method Of Arrival: Wheelchair hb 12:03 Acuity: RAUL 4 hb Historical: - Allergies: 12:05 No Known Drug Allergies; hb - PMHx: 12:05 breast cancer- in remission; Depression; Asthma; Diverticulitis; Hepatitis; Diabetes - hb NIDDM; COPD; Bipolar disorder; Pain Management; ADD/ADHD; PTSD; - PSHx: 12:05 ; arm surgery; leg surgery; hb - Immunization history:: Adult Immunizations up to date. - Social history:: Smoking status: Patient denies any tobacco usage or history of. Vital Signs: 12:06 BP 116 / 98; Pulse 86; Resp 16; Temp 98.2; Pulse Ox 95% on R/A; Pain 8/10; hb ED Course: 11:57 Patient arrived in ED. mr 12:04 Triage completed. hb 12:05 Arm band placed on. hb Administered Medications: No medications were administered Outcome: 15:37 Patient left the ED. ll1 Signatures: Charisse Arora Heather, KEYUR BAER Liliya Myrick RN RN ll1
[2021-01-28 15:40] VITALS: BP 116/98; TEMP 98.2; O2SAT 95
== END 2021-01-28 15:37 | disposition left against medical advice (07) ==
LOC: ER 11:52
DX: Z02.9 Encounter for administrative examinations, unspecified (principal)
CPT/HCPCS: 99281

== ENCOUNTER 2021-02-17 22:41 | Observation (INO) | payer OTHER ==
--- OUTSIDE RECORDS SUMMARY | 2021-02-17 22:46 | XMS REPORT | Continuity of Care Document ---
:1965 Author Organization [facility] t Address [facility] Baker [address] [place] [id number] Care Team Providers Name Role Phone JANEEN Primary Care Physician Unavailable Harinder BIRCH Attending Clinician Maria M BETANCOURT Attending Clinician Janeen MOYA Attending Clinician Dejan RN, L Attending Clinician Unavailable Fantasma MOYA Attending Clinician Rosa Maria BAER, R Attending Clinician Unavailable Sam BAER Attending Clinician Unavailable JANEEN Attending Clinician Unavailable MARIA M Attending Clinician Unavailable Guicho LEAVITT Attending Clinician Korey MOYA Attending Clinician KOREY Attending Clinician Unavailable Harrison BAER Attending Clinician Unavailable Forrest MOYA Attending Clinician Denisse MOYA Attending Clinician Sandra Burton MD Attending Clinician Divine Lanier MD Attending Clinician Yareli MOYA Attending Clinician FORREST Attending Clinician Unavailable MARKO CORDOVA M.D. Attending Clinician Unavailable DENISSE Admitting Clinician Unavailable MARKO CORDOVA M.D., M Admitting Clinician Unavailable Payers Payer Name Policy Type Policy Effective Expiration Source Number Date Date MEDICAREMEDICARE PART A [id number] 2005 MD Hawley AND 00:00:00 [id number] 2004-Pr [phone] , [place] [id number] 2018 MD Juan Antonio melendez TRADITIONALMEDICAID [place] 00:00:00 TRADITIONAL STAR PLUS [id number] esentMedicaid MEDICAREMEDICARE A [id number] 2005 NELL Kwan [id number] 2004-Pr 00:00:00 - Medical [facility]ent[facility]icare Center [place] MEDICAIDMEDICAID [id number] [facility] [id number] 2016 00:00:00 - [facility] MEDICAIDMEDICAID [id number] [facility] ch[facility] Kwan [id number] 2014-P 00:00[facility] [place] Problems Condition Condition Condition Status Onset Resolution [...] January 2019. 528 9 08:25HepC RNA PCR nt-[place] Undetecte d IU/mL (Undetec jassi) Witnessed Witnessed Disease Active [facility] seizure-li seizure-li 5- Keyla kes [...] : [facility] itis itis 05-29 Overview: [place] - 00:00: 2015:IMPR Medical 00 ESSION:1. Center Small central disc herniatio n at L2-L3 with minimal indentati on of thethecal sac and mild narrowing of the spinal canal.2. Changes of degenerat rex disc disease and facet degenerat rex diseaseth roughout the lumbar spine as described above. Portal Portal Disease Active Overview: [facility] hypertensi hypertensi 05-14 Overview: [place] - on on 00:00: Medical 00 9:Hepatos Center [facility] ly. There are findings suggestiv e of [...] carcinoma 2-05 [place] [facility] [place] 00:00: n portion of portion of 00 left left female female breast breast Estrogen Estrogen Disease Active 2016-11 receptor receptor 2-05 Shahab o positive positive 00:00: n status status 00 (ER+) (ER+) Estrogen Estrogen Disease Active 2016-11 [facility] receptor receptor 2-05 [facility] - positive positive 00:00: Medica l status status 00 [place] (ER+) (ER+) Malignant Malignant Disease Active 2016-[address] [facility] St neoplasm neoplasm 2-05 [facility] 00:00: Me dical portion of portion of 00 Ce nter left left female female breast breast Severe Severe Disease Active 2005-[address] [facility] bipolar I bipolar I 1-11 Luke s - disorder, disorder, 00:00: Medi [...] Source Family member -Breast cancer MD Cole rsata Family member Ovarian cancer MD Cole rsata Social History Social Habit Start Date Stop Date Quantity Comments Source Sex Assigned At [facility] Tobacco use and 2020-04-01 2020-04-[address] Ramires kes - exposure 00:00:00 00:00:00 [facility] Alcohol intake 2020-04-01 2020-04-01 Current NELL Soaresk es - 00:00:00 00:00:00 non-drinker of Medical Ce nter alcohol (finding) Tobacco Comment 2019-11-23 2019-11-23 Down from 2 ppd to M Chayo Hawley 00:00:00 00:00:00 5 cigarettes max per day Alcohol Comment 2018-05-05 2018-05-05 Denies any recent MD Hawley 00:00:00 00:00:00 use, remote hx Smoking Status Start Date Stop Date Source Current every day smoker 2020-04-01 00:00:00 [facility] Medications Ordered Filled Start Stop Current Ordering Indication Dosage Frequency Signature Comments Components Source Medication Medication Date Date Medication? Clinician (SIG) Name Name anastrozole Yes Mucinous TAKE 1 MD (ARIMIDEX) 4-06 carcinoma TABLET BY Anderso 1 mg tablet 00:00: of central MOUTH n 00 portion of EVERY DAY left female breast anastrozole 2019-11 No Mucinous TAKE 1 MD (ARIMIDEX) 2-07 04-06 carcinoma TABLET BY Anderso 1 mg tablet 00:00: 00:00 of central MOUTH n 00 :00 portion of EVERY DAY left female breast anastrozole 2019-11- No Mucinous TAKE 1 MD (ARIMIDEX) 0-12 12-07 carcinoma TABLET BY Anderso 1 mg tablet 00:00: 00:00 of central MOUTH n 00 :00 portion of EVERY DAY left female breast FreeStyle FreeStyle Yes Lea as [facility] Roxy 14 Roxy 14 8-06 Millender directed [facility] - Day Sensor Day Sensor 00:00: M emoria 00 l Outpati ent Clinics Metformin Metformin Yes Lea [address] [address] HCl HCl 8-06 Millender with a [facility] - 00:00: meal Memoria 00 l Outpati ent Clinics FreeStyle FreeStyle 2019- Yes Lea as [facility] Roxy Roxy 8-06 Millender directed [facility] s - [place] 00:00: Memoria 00 l Outpati ent Clinics Levemir Levemir Yes Lea as [facility] FlexTouch FlexTouch 8-06 Millender directed [facility] - 00:00: [facility] [place] Yes Lea as [facility] 8-06 Millender directed [facility] - 00:00: [facility] anastrozole 0 2020- No Mucinous TAKE 1 MD (ARIMIDEX) 7 10-12 carcinoma TABLET BY Anderssarika 1 mg tablet 00:00: 00:00 of central MOUTH n 00 :00 portion of EVERY DAY left female breast acetaminoph Yes 1{tbl} Take 1 MD en-codeine 6-23 [...] for wheezing or shortness of breath. anastrozole Yes 1mg QD Take [address] (ARIMIDEX) 6-09 by mouth [facility] - 1 mg tablet 08:45: daily. Medi shelley 06 Center umeclidiniu Yes 1{puff} QD Inhale [address] m-vilantero 6-09 puff by [facility]ukes - L (ANORO 08:45: mouth via Medi shelley ELLIPTA) 06 inhaler Center 62.5-25 daily. mcg/actuati on DsDv acetaminoph Yes 1{tbl} Take [address] en-codeine 6-09 tablet by Jeet s - (TYLENOL 08:45: mouth Medical #3) 300-30 06 every 8 Center mg per (eight) tablet hours as needed (severe pain) . FLUoxetine 2020- No 20mg QD Take [address] (PROZAC) 20 04-15 06-06 by mouth Oj es - MG tablet 12:19: 00:00 daily. Medic al 24 :00 [place] dextroamphe 2020- No dextroamph [facility] tamine-amph -06 13-06 etamine-am L ukes - etamine 12:10: 00:00 phetamine Medi shelley (ADDERALL) 22 :00 20 mg Center 20 mg Tab tablet tablet HYDROcodone 2019- No Take by [facility] -acetaminop 6 06-06 mouth. [facility] - hen 12:10: 00:00 Medical [...] times daily with breakfast and dinner. albuterol No 2{puff} Inhale [address] HFA [...] Center daily as needed for Anxiety. QUEtiapine 2019-2019- No 100mg QD Take [address] (SEROQUEL) 04-13 06-06 mg by [facility] - 100 MG 13:28: 00:00 mouth Medical tablet 37 :00 nightly. Center FLUoxetine 2019- No 10mg QD Take [address] (PROZAC) 10 6-06 06-08 tablet (10 L ukes - MG [...] Center daily. pregabalin 2019-0 2020- No 50mg [id number] Take [address] (LYRICA) 50 5-25 05-25 [id number] by mouth 3 [facility] - MG capsule 05:02: 00:00 3D (three) Med ical 47 :00 times Center daily. dextroamphe 2019- No 10mg Take [address] tamine-amph 5-25 05-25 by mouth. Keyla kes - etamine 5 05:01: 00:00 Medical mg Tab 55 :00 Center FLUOXETINE, 2019- No 40mg [address] BULK, MISC 5-25 05-25 Miscellane Keyla kes - 05:01: 00:00 ous route Medical 52 :00 . Center polyethylen 2019-0 Yes Constipatio 17g Take 17 g MD e glycol 1-16 n, not by mouth Georges so (MIRALAX) 00:00: otherwise daily. n 17 00 specified gram/dose powder anastrozole 2019- No Mucinous 1mg Take 1 MD (ARIMIDEX) 1-16 07-07 carcinoma tablet (1 Anderso 1 mg tablet 00:00: 00:00 of central mg) by n 00 :00 portion of mouth left female daily. breast cyclobenzap 2019-0 Yes 1{tbl} Take 1 MD rine 1-15 tablet by Anderso (FLEXERIL) 00:00: mouth n 10 mg 00 twice tablet daily. QUEtiapine 2019-0 Yes 2{tbl} Take 2 MD (SEROquel) 1-15 tablets by And erso 300 mg 00:00: mouth at n tablet 00 bedtime. lithium Yes 1{capsu Take 1 MD carbonate 1-15 [...] 00:00: 00:00 tablet Medical tablet 00 :00 [place] nystatin Yes Schizophren Apply M D (MYCOSTATIN [...] lithium [facility] MG capsule 04-20 0608 carbonate Oj es - 00:00: 00:00 300 mg Medical 00 :00 capsule [place] Paxil Paxil Yes Lea [address] Millender in the [facility]ukes - morning [facility] l [facility] Clinics Adderall Adderall Yes Lea [address] Millender [facility] Risperdal Risperdal Yes Lea [address] Millender [facility] [place] Yes Lea (450 mg) 1 CH I [...] Source Systolic blood 2020-04-16 06:55:00 115 mm[Hg] [facility] Diastolic blood 2020-04-16 06:55:00 75 mm[Hg] [facility] S [facility] Heart rate 2020-04-16 06:55:00 104 /min [facility] Body temperature 2020-04-16 06:55:00 36.39 Mansi [facility] Respiratory rate 2020-04-16 06:55:00 16 /min [facility] Oxygen saturation in 2020-04-16 06:55:00 93 /min [facility] Arterial blood by Medical Ce nter Pulse oximetry Body weight 2020-04-04 10:17:00 91.899 kg [facility] BMI 2020-04-04 10:17:00 35.45 kg/m2 [facility] Body height 2020-04-01 13:00:00 161 cm [facility] Procedures Procedure Date / Time Performing Clinician Source Performed RHYTHM STRIP - SCAN 2020-04-17 15:11:17 Provider, Roshni [facility] POCT-GLUCOSE METER 2020-04-15 22:05:00 Yareli Arturo [facility] POCT-GLUCOSE METER 2020-04-15 12:44:00 Yareli Arturo [facility] POCT-GLUCOSE METER 2020-04-15 08:15:00 Arturo Downs [facility] POCT-GLUCOSE METER 2020-04-14 21:19:00 LanierSamantha [facility] POCT-GLUCOSE METER 2020-04-13 17:03:00 Lanier, Samantha Haskins [facility] POCT-GLUCOSE METER 2020-04-13 11:55:00 Lanier, Samantha Haskins [facility] POCT-GLUCOSE METER 2020-04-13 08:22:00 Lanier, Samantha Haskins [facility] POCT-GLUCOSE METER 2020-04-12 20:48:00 [facility]ier[facility]SE MET[facility] 2020-04-12 17:18:00 Lanier, Samantha [facility] POCT-GLUCOSE METER 2020-04-12 12:10:00 Lanier, Samantha [facility] POCT-GLUCOSE METER 2020-04-12 08:32:00 Lanier, [facility] LITHIUM LEVEL 2020-04-12 04:26:00 Lee[facility] POCT-GLUCOSE METER 2020-04-11 21:49:00 Lanier, Samantha [facility] POCT-GLUCOSE METER 2020-04-11 16:42:00 Lanier, Samantha [facility] POCT-GLUCOSE METER 2020-04-11 10:52:00 Lanier, Samantha [facility] POCT-GLUCOSE METER 2020-04-11 06:55:00 Lanier, Samantha [facility] POCT-GLUCOSE METER 2020-04-10 20:46:00 [facility]SE [facility] 2020-04-10 17:42:00 Lanier, Samantha [facility] POCT-GLUCOSE METER 2020-04-10 11:07:00 Lanier, [facility] POCT-GLUCOSE METER 2020-04-10 07:12:00 Lanier, [facility] CBC W/PLT COUNT & AUTO 2020-04-10 03:58:00 Lanier, [facility] BASIC METABOLIC PANEL (7) 2020-04-10 03:58:00 Lanier, [facility] POCT-GLUCOSE METER 2020-04-09 21:30:00 Lanier, [facility] POCT-GLUCOSE METER 2020-04-09 17:05:00 Lanier, [facility] POCT-GLUCOSE METER 2020-04-09 07:13:00 Lanier, Samantha Haskins [facility] LITHIUM LEVEL 2020-04-09 04:06:00 Lanier, Samantha Haskins [facility] POCT-GLUCOSE METER 2020-04-08 21:22:00 Lanier, Samantha Haskins [facility] POCT-GLUCOSE METER 2020-04-08 18:08:00 Lanier, Samantha Haskins [facility] POCT-GLUCOSE METER 2020-04-08 12:36:00 Lanier, Samantha Haskins [facility] CBC W/PLT COUNT & AUTO 2020-04-08 03:42:00 Seanformerly [facility] METABOLIC 2020-04-08 03:42:00 [facility] POCT-GLUCOSE METER 2020-04-07 21:08:00 [facility] POCT-GLUCOSE METER 2020-04-07 17:20:00 [facility] POCT-GLUCOSE METER 2020-04-07 12:02:00 [facility] POCT-GLUCOSE METER 2020-04-07 07:55:00 [facility] CBC W/PLT COUNT & AUTO 2020-04-07 04:24:00 [facility] COMPREHENSIVE METABOLIC 2020-04-07 04:24:00 [facility] POCT-GLUCOSE METER 2020-04-06 21:01:[address] [facility] [address] CHEST PE TEST DESIGN 2020-04-06 16:30:00 [facility] AP[facility] 2020-04-06 13:47:00 [facility] POCT-GLUCOSE METER 2020-04-06 11:56:00 [facility] 2020-04-06 09:15:00 Mic[facility]al [facility] POCT-GLUCOSE METER 2020-04-06 07:41:00 Micheal [facility] COMPREHENSIVE METABOLIC 2020-04-06 03:34:00 Micheal [facility] CBC W/PLT COUNT & AUTO 2020-04-06 03:34:00 Micheal [facility] APTT 2020-04-06 03:34:00 [facility] POCT-GLUCOSE METER 2020-04-05 23:20:00 Seanformerly [facility] URINE CULTURE 2020-04-05 19:02:00 Micheal [facility] URINALYSIS W/ REFLEX URINE 2020-04-05 19:02:00 Micheal [facility] D-DIMER 2020-04-05 18:48:00 [facility] BASIC METABOLIC PANEL (7) 2020-04-05 18:48:00 Melody Burton [facility] MAGNESIUM 2020-04-05 18:48:[address] [facility] PHOSPHORUS 2020-04-05 18:48:00 Micheal [facility] CBC W/PLT COUNT & AUTO 2020-04-05 18:48:00 Micheal [facility] SARS-COV2/RT-PCR ([facility] & 2020-04-05 17:02:00 Mel[address] [facility] - REF LABS) [facility] POCT-GLUCOSE METER 2020-04-05 16:51:00 Micheal [facility] XR CHEST 1 VIEW 2020-04-05 16:46:00 Melody Burton [facility] - PORTABLE/BEDSIDE [facility] LACTIC ACID, VENOUS 2020-04-05 16:24:00 [facility] ECG 12-LEAD 2020-04-05 16:08:18 [facility] ECG 12-LEAD 2020-04-05 13:27:01 [facility] POCT-GLUCOSE METER 2020-04-05 11:22:00 [facility] POCT-GLUCOSE METER 2020-04-05 08:11:00 [facility] POCT-GLUCOSE METER 2020-04-04 20:58:00 [facility] POCT-GLUCOSE METER 2020-04-04 17:52:00 [facility] HEPATIC FUNCTION PANEL 2020-04-04 15:21:00 [facility] CBC W/PLT COUNT & AUTO 2020-04-04 15:20:00 [facility] REPORT OF PROCEDURE - 2020-04-04 13:41:29 Provider, [facility] ENDOSCOPY SCAN Scanning [facility] POCT-GLUCOSE METER 2020-04-04 11:41:00 [facility] POCT-GLUCOSE METER 2020-04-04 08:55:00 [facility] BASIC METABOLIC PANEL (7) 2020-04-04 05:30:00 Chantell Larson [facility], [facility] CBC W/PLT COUNT & AUTO 2020-04-04 05:30:00 Kirit De La Cruz [facility] MAGNESIUM 2020-04-04 05:30:00 [facility] PHOSPHORUS 2020-04-04 05:30:00 [facility] POCT-GLUCOSE METER 2020-04-03 21:53:00 [facility] POCT-GLUCOSE METER 2020-04-03 17:49:00 [facility] POCT-GLUCOSE METER 2020-04-03 11:26:00 [facility] POCT-GLUCOSE METER 2020-04-03 07:24:00 [facility] US ABDOMEN LIMITED 2020-04-03 05:45:00 [facility] HEPATIC FUNCTION PANEL 2020-04-03 03:34:00 [facility] BASIC METABOLIC PANEL (7) 2020-04-03 03:34:00 Chantell Larson [facility] CBC W/PLT COUNT & AUTO 2020-04-03 03:34:00 Denisse [facility] MAGNESIUM 2020-04-03 03:34:00 [facility] PHOSPHORUS 2020-04-03 03:34:00 [facility] HEMOGLOBIN A1C 2020-04-03 03:34:00 [facility] POCT-GLUCOSE METER 2020-04-02 21:09:00 [facility] MR BRAIN WITHOUT IV 2020-04-02 20:22:[address] [facility] POCT-GLUCOSE METER 2020-04-02 17:17:00 [facility] RAPID DRUG SCREEN, URINE 2020-04-02 13:14:00 Lorene Mcclure [facility] DRUG SCREEN, URINE, 2020-04-02 13:12:00 Lorene Mcclure [facility] AMMONIA 2020-04-02 12:22:00 Denisse [facility] BLOOD CULTURE 2020-04-02 12:08:00 Denisse [facility] POCT-GLUCOSE METER 2020-04-02 11:00:00 [facility] POCT-GLUCOSE METER 2020-04-02 08:33:00 Micheal Melody [facility] EEG 12-26 HR CONTINUOUS 2020-04-02 06:32:00 Forrest [facility] - MONITORING WITH VIDEO Medical Ce nter BASIC METABOLIC PANEL (7) 2020-04-02 04:43:00 Chantell Larson [facility] CBC W/PLT COUNT & AUTO 2020-04-02 04:43:00 Denisse [facility] POCT-GLUCOSE METER 2020-04-02 01:53:00 [facility] 2020-04-01 20:44:00 [facility] HE[facility]CTION PANEL 2020-04-01 18:46:00 [facility] PO[facility]SE [facility]ER 2020-04-01 17:57:00 [facility] T[facility]FREE T4 IF INDICATED 2020-04-01 14:13:00 [facility] VITAMIN B12 AND FOLATE 2020-04-01 14:13:00 [facility] LITHIUM LEVEL 2020-04-01 14:13:00 [facility] T4, FREE 2020-04-01 14:13:00 [facility] BLOOD CULTURE 2020-04-01 14:11:00 [facility] PO[facility]-GLUCOSE METER 2020-04-01 12:22:00 [facility] ECG 12-LEAD 2020-04-01 08:31:07 [facility] SARS-COV2/RT-PCR ([facility] & 2020-04-01 05:24:00 Forrest, [facility] - REF LABS) [facility] CBC W/PLT COUNT & AUTO 2020-04-01 05:08:00 [facility] BASIC METABOLIC PANEL (7) 2020-04-01 05:08:00 Forrest, [facility] MAGNESIUM 2020-04-01 05:08:00 Forrest, [facility] CREATINE KINASE (CK) 2020-04-01 05:08:00 Forrest, [facility] PHOSPHORUS 2020-04-01 05:08:00 Forrest, [facility] PT/APTT 2020-04-01 05:08:00 Forrest, [facility] TROPONIN I 2020-04-01 05:08:00 Chantell Larson [facility] URINALYSIS W/ REFLEX URINE 2020-04-01 05:04:00 Forrest, [facility] C HI [facility] XR CHEST 1 VIEW 2020-04-01 04:58:00 Forrest, [facility]/BEDSIDE Medical Center CRITICAL CARE 2020-04-01 04:51:54 Forrest, [facility] ED ECG INTERPRETATION 2020-04-01 04:51:54 Forrest, [facility] Plan of Care Planned Activity Planned Date Details Comments Source Future Scheduled 2020-04-[address] [facility] - Test 00:00:00 [facility]) [code = 811460229] Future Scheduled 2014 SHINGLES VACCINES ([address] [facility] - Test 00:00:00 of 2) [code = SHINGLES Medic me Center VACCINES (1 of 2)] Future Scheduled [address] [facility] - Test 00:00:00 (procedure) [code = Medical Center 36848807] Future Scheduled 2006-10-[address] [facility] - Test 00:00:00 WELLNESS (YEAR 2 or Medical Center FIRST YEAR if no IPPE) [code = MEDICARE ANNUAL WELLNESS (YEAR 2 or FIRST YEAR if no IPPE)] Future Scheduled [address] [facility] - Test 00:00:00 [facility] cervix (procedure) [code = 577142849] Future Scheduled 1983 DTAP/TDAP/TD VACCINES CH I [...] Medica l Center colon (procedure) [code = 259461039] Encounters Start End Encounter Admission Attending Care Care Encounter Source Date/Time Date/Time Type Type Clinicians Facility Department ID 2020-08-20 2020-08-20 [facility] [id number] 2020-08-18 2020-08-18 [facility] [id number] [facility] 2020-08-16 2020-08-16 [facility] [id number] [facility] 2020-08-07 2020-08-07 [facility] [id number] [facility] 2020-07-09 2020-07-09 Out[facility] [id number] [facility] 2020-06-13 2020-06-13 [facility] [id number] 11:00:00 11:00:00 [facility] Medicine Outpati ent Clinics 2020-05-24 2020-05-24 Outpatient AWILDA VERNON MDA MDA [id number] 00:00:00 00:00:00 NEDA melendez 2020-05-23 2020-05-23 Outpatient AWILDA VERNON MDA MDA [id number] 00:00:00 00:00:00 NEDA melendez 2020-05-13 2020-05-13 Outpatient AWILDA SULLIVAN [facility] MDA [id number] 00:00:00 00:00:00 FAUSTINO melendez 2020-05-07 2020-05-07 Outpatient AWILDA VERNON MDA MDA [id number] 00:00:00 00:00:00 NEDA arshad n 2020-05-07 2020-05-07 Outpatient AWILDA VERNON MDA MDA [id number] 00:00:00 00:00:00 NEDA arshad n 2020-04-30 2020-04-30 Outpatient AWILDA POLANCO MDA MDA [id number] 09:15:00 23:59:00 LAMBERTO arshad n 2019-10-18 2019-10-18 [facility] [id number] 08:20:00 08:20:00 [facility] 2019-10-10 2019-10-10 [facility] [id number] 16:00:00 16:00:00 [facility] Results Test Description Test Time Test Comments Results Result Comments Source POC-Glucose meter 2020-04-15 22:17:00 Test Item Value Reference Range Interpretation Comme nts POC-Glucose Meter (test code = 124 mg/dL 70-110 H : TESTED AT [facility] [address] [place] [id number], 770 30: Screen Printer/Techni janel ID = [id number] for RAY ERVIN Lab Interpretation (test code = Abnormal 22800-3) [facility] [id number] 22:17:00 Test Item Value Reference Range Interpretation Comments POC-GLUCOSE METER 124 mg/dL 70-110 H : TESTED A T [facility] [address] ([employer]) (test code = [facility], 1538) 15005: Screen Printer/Techni janel ID = [id number] for RAY MCCLELLAN POCT-GLUCOSE [id number] 12:55:00 Test Item Value Reference Range Interpretation Comments POC-GLUCOSE METER 189 mg/dL 70-110 H : TESTED A T [facility] [address] ([employer]) (test code = [facility], 1538) 77076: Screen Printer/Techni janel ID = [id number] for HI DALGO, AGLAE POCT-GLUCOSE [id number] 08:26:00 Test Item Value Reference Range Interpretation Comments POC-GLUCOSE METER 123 mg/dL 70-110 H : TESTED A T [facility] [address] ([facility]) (test code = [facility], 153) 18155: Screen Printer/Techni janel ID = [id number] for JOE BINGHAM POCT-GLUCOSE [id number] 21:31:00 Test Item Value Reference Range Interpretation Comments POC-GLUCOSE METER 176 mg/dL 70-110 H : Notified RN/MD: ([facility]) (test code = [facility]ED [facility] 153) [facility], [address]: Screen Printer/Techni janel ID = [id number] for JOSH LANDONN ICE [place] [id number] 11:45:00 Test Item Value Reference Range Interpretation Comments [place] Level (test code = 0.6 mmol/L 0.8-1.2 L 50962-4) Lab Interpretation (test code = Abnormal 05534-4) [facility] [id number] 11:45:00 Test Item Value Reference Range Interpretation Comments LITHIUM LEVEL ([facility]) (test code 0.6 mmol/L 0.8-1.2 L = 630) POCT-GLUCOSE [id number] 17:15:00 Test Item Value Reference Range Interpretation Comments POC-GLUCOSE METER 128 mg/dL 70-110 H : TESTED A T [facility] 6720 ([facility]) (test code = [facility], 153) [address]: Screen Printer/Techni janel ID = [id number] for HI DALGO, AGLAE POCT-GLUCOSE [id number] 12:20:00 Test Item Value Reference Range Interpretation Comments POC-GLUCOSE METER 108 mg/dL 70-110 : TESTED A T [facility] 67[facility] ([facility]) (test code = [facility], 153) [address]: Screen Printer/Techni janel ID = [id number] for Sm ith, Elaina POCT-GLUCOSE [id number] 08:34:00 Test Item Value Reference Range Interpretation Comments POC-GLUCOSE METER 115 mg/dL 70-110 H : [facility] T [facility] 6720 [facility] (test code = [facility], 1538) [address]: Screen Printer/Techni janel ID = [id number] for Sm calli, Elaina POCT-GLUCOSE [id number] 20:59:00 Test Item Value Reference Range Interpretation Comments POC-GLUCOSE METER 152 mg/dL 70-110 H : TESTED A T [facility] 6720 ([facility]) (test code = [facility], 1538) [address]: Screen Printer/Techni janel ID = [id number] for BA EMBER DENG POCT-GLUCOSE [id number] 17:29:00 Test Item Value Reference Range Interpretation Comments POC-GLUCOSE METER 103 mg/dL 70-110 : TESTED A T [facility] 6720 ([facility]) (test code [facility], = 1538) [address]: Screen Printer/Techni janel ID = [id number] for TSEG GAI, TSIGHEREDA POCT-GLUCOSE [id number] 12:22:00 Test Item Value Reference Range Interpretation Comments POC-GLUCOSE METER 204 mg/dL 70-110 H : Notified RN/MD: TESTED ([facility]) (test code AT [facility] [address] [place] [address] = 1538) [facility], 770 30: Screen Printer/Techni janel ID = [id number] for TSEG GAI, TSIGHEREDA POCT-GLUCOSE [id number] 08:43:00 Test Item Value Reference Range Interpretation Comments POC-GLUCOSE METER 132 mg/dL 70-110 H : TESTED A T [facility] 6720 ([facility]) (test code [facility], = 1538) [address]: Screen Printer/Techni janel ID = [id number] for TSEG GAI, TSIGHEREDA POCT-GLUCOSE [id number] 07:13:00 Test Item Value Reference Range Interpretation Comments POC-GLUCOSE METER 200 mg/dL 70-110 H : TESTED A T [facility] 6720 ([facility]) (test code = [facility], 1538) [address]: Screen Printer/Techni janel ID = [id number] for OC FELICIA, KULDIP POCT-GLUCOSE [id number] 16:54:00 Test Item Value Reference Range Interpretation Comments POC-GLUCOSE METER 103 mg/dL 70-110 : TESTED A T [facility] 6720 (BEAKER) (test code = [facility], 1538) [address]: Screen Printer/Techni janel ID = [id number] for HU NT, KATIE POCT-GLUCOSE [id number] 11:03:00 Test Item Value Reference Range Interpretation Comments POC-GLUCOSE METER 155 mg/dL 70-110 H : TESTED A T [facility] 6720 (BEAKER) (test code = [facility], [facility]8) [address]: Screen Printer/Techni janel ID = [id number] for HU NT, KATIE POCT-GLUCOSE [id number] 07:06:00 Test Item Value Reference Range Interpretation Comments POC-GLUCOSE METER 129 mg/dL 70-110 H : TESTED A T [facility] 6720 (BEAKER) (test code = [facility], [facility]8) [address]: Screen Printer/Techni janel ID = [id number] for HU NT, KATIE POCT-GLUCOSE [id number] 20:59:00 Test Item Value Reference Range Interpretation Comments POC-GLUCOSE METER 167 mg/dL 70-110 H : TESTED A T [facility] 6720 (BEAKER) (test code = [facility], 1538) 24[address]: Screen Printer/Techni janel ID = [id number] for ALISSA VALENCIA, SAUDATU POCT-GLUCOSE [id number] 17:53:00 Test Item Value Reference Range Interpretation Comments POC-GLUCOSE METER 185 mg/dL 70-110 H : TESTED A T [facility] 6720 (BEAKER) (test code = [facility], [facility]8) 13[address]: Screen Printer/Techni janel ID = [id number] for Ma thew, Remyia POCT-GLUCOSE [id number] 11:18:00 Test Item Value Reference Range Interpretation Comments POC-GLUCOSE METER 145 mg/dL 70-110 H : TESTED A T [facility] 6720 (BEAKER) (test code = [facility], 1538) 34[address]: Screen Printer/Techni janel ID = [id number] for Ma thew, Remyia POCT-GLUCOSE [id number] 07:23:00 Test Item Value Reference Range Interpretation Comments POC-GLUCOSE METER 105 mg/dL 70-110 : TESTED A T [facility] 6720 (BEAKER) (test code = [place], 1538) [address]: Screen Printer/Techni janel ID = [id number] for Caleb Barcenas Basic Metabolic [id number] 04:32:00 Test Item Value Reference Range Interpretation Comments Sodium (test code = 143 meq/L 225-281 8632-2) Potassium (test code = 4.0 meq/L 3.5-5.1 2823-3) Chloride (test code = 111 meq/L 98-107 H 2075-0) CO2 (test code = 25 meq/L 22-29 2028-9) BUN (test code = 11 mg/dL 7-21 3094-0) Creatinine (test code 0.76 mg/dL 0.57-1.25 = 2160-0) Glucose (test code = 106 mg/dL 70-105 H 2345-7) Calcium (test code = 9.6 mg/dL 8.4-10.2 44471-2) EGFR (test code = 79 mL/min/1.73 [place] [address]-8) NOT ACCURATE CREATININE CLEARANCE IN PREDICTING GLOMERULAR FILTRATION RATE . ESTIMATED GFR I S NOT APPLICABLE FOR DIALYSIS PATIENTS. VIKKI (test code = VIKKI) Screen Printer ID - ZAHRA Bettencourt Lab Interpretation Abnormal (test code = 39162-7) [facility] METABOLIC [id number] 04:32:00 Test Item Value Reference Range Interpretation [...] S NOT APPLICABLE FOR DIALYSIS PATIEN TS. Screen Printer ID - ZAHRA MCBC with platelet count + automated [id number] 04:10:00 Test Item Value Reference Range Interpretation Comments WBC (test code = 6690-2) 4.6 See_Comment [A utomated message] The system [employer] generated this result transmitted ref erence range: 3.5 - 10 .5 K/L. The refe rence range was not u sed to interpret this result as normal/abnor mal. RBC (test code = 789-8) 4.19 See_Comment [Au tomated message] The system [employer] generated this result transmitted ref erence range: 3.93 - 5 .22 M/L. The refe rence range was not u sed to interpret this result as normal/abnor mal. MCHC (test code = 786-4) 31.9 See_Comment L [A utomated message] The system [employer] generated this result transmitted ref erence range: [...] L [Aut omated message] 777-3) The system [employer] generated this result transmitted ref erence range: 150 - 45 0 K/CU MM. The referen ce range was not u sed to interpret this result as normal/abnor mal. MPV (test code = 12.3 fL 9.4-12.3 71370-2) nRBC (test code = 413) 0 See_Comment [Aut omated message] The system [employer] generated this result transmitted ref erence range: [...] See_Comment [Aut omated message] 670) The system [employer] generated this result transmitted ref erence range: 1.56 - 6 .13 K/L. The refe rence range was not u sed to interpret this result as normal/abnor mal. # Lymphs (test code = 1.69 See_Comment [Auto mated message] 414) The system [employer] generated this result transmitted ref erence range: 1.18 - 3 .74 K/L. The refe rence range was not u sed to interpret this result as normal/abnor mal. # Monos (test code = 0.50 See_Comment H [Autom ated message] 415) The system [employer] generated this result transmitted ref erence range: 0.24 - 0 .36 K/L. The refe rence range was not u sed to interpret this result as normal/abnor mal. # Eos (test code = 416) 0.13 See_Comment [Au tomated message] The system [employer] generated this result transmitted ref erence range: 0.04 - 0 .36 K/L. The refe rence range was not u sed to interpret this result as normal/abnor mal. # Baso (test code = 417) 0.02 See_Comment [A utomated message] The system [employer] generated this result transmitted ref erence range: 0.01 - 0 .08 K/L. The refe rence range was not u sed to interpret this result as normal/abnor mal. Immature 0 % 0-1 Granulocytes-Relative (test code = 2801) Lab Interpretation (test Abnormal code = 12003-1) [facility] W/PLT COUNT & AUTO [id number] 04:10:00 Test Item Value Reference Range Interpretation [...] PERCENT (BEAKER) (test code = 2801) POCT-GLUCOSE [id number] 21:41:00 Test Item Value Reference Range Interpretation Comments POC-GLUCOSE METER 130 mg/dL 70-110 H : TESTED A T [facility] 6720 (BEAKER) (test code = [facility], 153) [address]: Screen Printer/Techni janel ID = [id number] for SA NTOS, UYEN POCT-GLUCOSE [id number] 17:17:00 Test Item Value Reference Range Interpretation Comments POC-GLUCOSE METER 107 mg/dL 70-110 : TESTED A T [facility] 6720 (BEAKER) (test code = [facility], 153) [address]: Screen Printer/Techni janel ID = [id number] for CA STRO, JONAH LITHIUM [id number] 13:12:00 Test Item Value Reference Range Interpretation Comments LITHIUM LEVEL (BEAKER) (test code 0.5 mmol/L 0.8-1.2 L = 630) POCT-GLUCOSE [id number] 07:24:00 Test Item Value Reference Range Interpretation Comments POC-GLUCOSE METER 124 mg/dL 70-110 H : TESTED A T [facility] 6720 (BEAKER) (test code = [facility], [facility]) [address]: Screen Printer/Techni janel ID = [id number] for CA STRO, JONAH POCT-GLUCOSE [id number] 21:34:00 Test Item Value Reference Range Interpretation Comments POC-GLUCOSE METER 174 mg/dL 70-110 H : TESTED A T [facility] 6720 (BEAKER) (test code = [facility], [facility]) [address]: Screen Printer/Techni janel ID = [id number] for DE NNIS, BING POCT-GLUCOSE [id number] 18:20:00 Test Item Value Reference Range Interpretation Comments POC-GLUCOSE METER 125 mg/dL 70-110 H : TESTED A T [facility] 6720 (BEAKER) (test code = [facility], 1538) 120[address]: Screen Printer/Techni janel ID = [id number] for HI DALGO, AGLAE POCT-GLUCOSE [id number] 12:47:00 Test Item Value Reference Range Interpretation Comments POC-GLUCOSE METER 100 mg/dL 70-110 : TESTED A T [facility] 6720 (BEAKER) (test code = [facility], 1538) [address]: Screen Printer/Techni janel ID = [id number] for LUCAS LOWE Comprehensive metabolic [id number] 04:30:00 Test Item Value Reference Range Interpretation Comments Protein, Total (test 7.5 See_Comment [Autom ated code = 2885-2) message] The system which generated this result transmit jassi reference range : 6.0 - 8.3 gm/dL . The reference range was not u sed to interpret th is result as normal/abnormal . Albumin (test code = 3.7 g/dL 3.5-5 87005-8) Alkaline Phosphatase 94 U/L 40-150 (test code = 6768-6) Total Bilirubin (test 0.9 mg/dL 0.2-1.2 code = 1974-2) Sodium (test code = 141 meq/L 879-304 4757-2) Potassium (test code 4.0 meq/L 3.5-5.1 = 2823-3) Chloride (test code = 110 meq/L 98-107 H 2075-0) CO2 (test code = 23 meq/L 22-29 2028-9) BUN (test code = 10 mg/dL 7-21 3094-0) Creatinine (test code 0.72 mg/dL 0.57-1.25 = 2160-0) Glucose (test code = 123 mg/dL 70-105 H 2345-7) Calcium (test code = 9.6 mg/dL 8.4-10.2 44020-6) AST (test code = 28 U/L 5-34 1920-8) ALT (test code = 39 U/L 6-55 1742-6) EGFR (test code = 84 mL/min/1.[place] [address]-5) NOT ACCURATE CREATININE CLEARANCE IN PREDICTING GLOMERULAR FILTRATION RATE . ESTIMATED GFR I S NOT APPLICABLE FOR DIALYSIS PATIEN TS. VIKKI (test code = VIKKI) Screen Printer ID - PIAYA L Lab Interpretation Abnormal (test code = 22890-0) [facility] [id number] 04:30:00 Test Item Value Reference Range Interpretation [...] S NOT APPLICABLE FOR DIALYSIS PATIEN TS. Screen Printer ID - PIAYA LCBC W/PLT COUNT & AUTO [id number] 03:57:00 Test Item Value Reference Range Interpretation [...] PERCENT (BEAKER) (test code = 2801) POCT-GLUCOSE [id number] 21:19:00 Test Item Value Reference Range Interpretation Comments POC-GLUCOSE METER 111 mg/dL 70-110 H : TESTED A T [facility] 6720 (BEAKER) (test code = [place], 1538) [address]: Screen Printer/Techni janel ID = [id number] for Neda Pineda POCT-GLUCOSE [id number] 17:31:00 Test Item Value Reference Range Interpretation Comments POC-GLUCOSE METER 106 mg/dL 70-110 : TESTED A T [facility] 6720 (BEAKER) (test code = [facility], 1538) 34016: Screen Printer/Techni janel ID = [id number] for Caleb Barcenas Blood [id number] 14:00:00 Test Item Value Reference Range Interpretation Comments Result (test code = No growth in 5 days 6463-4) [facility] [id number] 14:00:00 Test Item Value Reference Range Interpretation Comments CULTURE (BEAKER) (test No growth in 5 days code = 1095) POCT-GLUCOSE [id number] 12:14:00 Test Item Value Reference Range Interpretation Comments POC-GLUCOSE METER 113 mg/dL 70-110 H : TESTED A T [facility] 6720 (BEAKER) (test code = [facility], 1538) 627[address]: Screen Printer/Techni janel ID = [id number] for Caleb Barcenas POCT-GLUCOSE [id number] 08:06:00 Test Item Value Reference Range Interpretation Comments POC-GLUCOSE METER 133 mg/dL 70-110 H : TESTED A T [facility] 6720 (BEAKER) (test code = [facility], 1538) 86117: Screen Printer/Techni janel ID = [id number] for Caleb Barcenas COMPREHENSIVE METABOLIC [id number] 05:57:00 Test Item Value Reference Range Interpretation [...] S NOT APPLICABLE FOR DIALYSIS PATIEN TS. Screen Printer ID - PIAYA LCBC W/PLT COUNT & AUTO [id number] 05:15:00 Test Item Value Reference Range Interpretation [...] PERCENT (BEAKER) (test code = 2801) POCT-GLUCOSE [id number] 21:12:00 Test Item Value Reference Range Interpretation Comments POC-GLUCOSE METER 197 mg/dL 70-110 H : TESTED A T [facility] 6720 (BEAKER) (test code = [facility], 1538) 75112: Screen Printer/Techni janel ID = [id number] for ANNEMARIE MAYCOLATA SUMMER BLOOD [id number] 20:00:00 Test Item Value Reference Range Interpretation Comments CULTURE (BEAKER) (test No growth in 5 days code = 1095) Respiratory Panel [id number] 19:01:00 Test Item Value Reference Range Interpretation Comments Human Metapneumovirus Not detected Not detected, (test code = 05272-0) Equivocal Rhinovirus (test code = Not detected Not detected, 63054-8) Equivocal INFLUENZA A (NO Not detected Not detected, SUBTYPE) (test code = Equivocal 98008-6) Influenza A subtype H1 (test code = 25140-5) Influenza A Subtype H3 (test code = 90649-2) Influenza A Subtype H1-2009 (test code = 93620-3) Influenza B (test code Not detected Not detected, = 12281-9) Equivocal Respiratory Syncytial Not detected Not detected, Virus (test code = Equivocal 99480-2) Parainfluenza Virus 1 Not detected Not detected, (test code = 09679-4) Equivocal Parainfluenza Virus 2 Not detected Not detected, (test code = 12501-2) Equivocal Parainfluenza virus 3 Not detected Not detected, (test code = 13790-6) Equivocal Parainfluenza Virus 4 Not detected Not detected, (test code = 80970-3) Equivocal Adenovirus (test code = Not detected Not detected, 25336-2) Equivocal Coronavirus 229E (test Not detected Not detected, code = 61297-2) Equivocal Coronavirus HKU1 (test Not detected Not detected, code = 37528-9) Equivocal Coronavirus NL63 (test Not detected Not detected, code = 86552-6) Equivocal Coronavirus OC43 (test Not detected Not detected, code = 12194-0) Equivocal Bordetella Pertussis Not detected Not detected, (test code = 77246-5) Equivocal Chlamydophila Not detected Not detected, Pneumoniae (test code = Equivocal 76568-0) Mycoplasma Pneumoniae Not detected Not detected, (test code = 26122-3) Equivocal VIKKI (test code = VIKKI) Other viruses and bacteria not targeted by this PCR panel cannot be excluded; therefore clinical correlation and follow up of serology, culture results, and other molecular studies is required. The results are not intended to be used as the sole means for clinical diagnosis or patient management decisions. This sample was tested at the [facility] using the PadMatcherArray Respiratory Panel. It is FDA cleared and has been verified and approved by the [facility] for clinical use on nasopharyngeal swab specimens. The performance of the FilmArray RP has not been established in individuals who received influenza vaccine. Recent administration of a nasal influenza vaccine may cause false positive results for Influenza A and/orInfluenza B. [facility] [id number] 19:01:00 Test Item Value Reference Range Interpretation [...] decisions. This sample was tested at the [facility] using the PadMatcherArray Respiratory Panel. It is FDA cleared and has been verified and approved by the [facility] for clinical [...] MDReport Verified Date/Time: 04/06/2020 16:45:26 Reading Location: [address] Transitional Reading Room CT chest for [...] represent compression fractures, age indeterminate. Signed: Lorenzo [place] Verified Date/Time: 04/06/2020 16:45:26 Reading Location: [address] Transitional Reading Room [facility] 14:[facility]00 Test Item Value Reference Range Interpretation Comments PTT (test code = 31.0 See_Comment [Automated 81566-9) message] The system which generated this result transmitted reference range : 22.5 - 36.0 seconds. The reference range was not used to interpret this result as normal/abnormal . VIKKI (test code = VIKKI) 6 hours after starting heparin infusion and as indicated per sliding scale Lab Interpretation Normal (test code = 50123-9) [place] [id number] 14:25:00 Test Item Value Reference Range Interpretation Comments PARTIAL THROMBOPLASTIN TIME 31.0 seconds 22.5-36.0 (BEAKER) (test code = 760) 6 hours after starting heparin infusion and as indicated per sliding scalePOCT- GLUCOSE [id number] 12:08:00 Test Item Value Reference Range Interpretation Comments POC-GLUCOSE METER 135 mg/dL 70-110 H : TESTED A T [facility] 6720 (BEAKER) (test code = [place] [facility], 1538) [address]: Screen Printer/Techni janel ID = [id number] for PO OLGAJEREMY CARLISLE ECG 12 [id number] 11:22:15Interface, External Ris In - 04/06/2020 11:22 AM CDTVentricular Rate 119 BPMAtrial Rate 119 BPMP-R Interval 128 msQRS Duration 84 msQ-T Interval 308 msQTC Calculation(Bazekameron) 433 msP Solon 68 degreesR Solon 64 degreesT Solon 55 degreesSinus tachycardiaOtherwise normal ECGConfirmed by MD ESTELLE, ELVIA ([id number]) on 04/06/2020 11:22:13 [facility] [id number] 07:52:00 Test Item Value Reference Range Interpretation Comments POC-GLUCOSE METER 128 mg/dL 70-110 H : TESTED A T [facility] 6720 (BEAKER) (test code = [place], 1538) [address]: Screen Printer/Techni janel ID = [id number] for JEREMY VILLEDA COMPREHENSIVE METABOLIC [id number] 04:36:00 Test Item Value Reference Range Interpretation [...] S NOT APPLICABLE FOR DIALYSIS PATIEN TS. Screen Printer ID - PIAYA [id number] 04:10:00 Test Item Value Reference Range Interpretation Comments PARTIAL THROMBOPLASTIN TIME 29.3 seconds 22.5-36.0 (BEAKER) (test code = 760) Prior to initiating heparinCBC W/PLT COUNT & AUTO [id number] 04:02:00 Test Item Value Reference Range Interpretation [...] = 2801) Urinalysis w/Microscopic + Reflex to [id number] 00:18:00 Test Item Value Reference Range Interpretation Comments Color, UA (test code Yellow = 5778-6) Clarity, UA (test Clear code = 5767-9) Specific Prospect, UA 1.015 1.001-1.035 (test code = 5811-5) pH, UA (test code = 7.0 5.0-8.0 5803-2) Protein, UA (test Negative Negative code = 28360-8) Glucose, UA (test Negative Negative code = 365) Ketones, UA (test Negative Negative code = 2514-8) Bilirubin, UA (test Negative Negative code = 62062-1) Blood, UA (test code Negative Negative = 18165-6) Nitrite, UA (test Negative Negative code = 5802-4) Leukocytes, UA (test Moderate Negative A code = 5799-2) Urobilinogen, UA 6.0 mg/dL 0.2-1 H (test code = 06197-2) RBC, UA (test code = <1 See_Comment [Autom ated 87813-3) message] The system which generated this result [...] . Bacteria, UA (test Occasional code = 12797-7) Squam Epithel, UA 5 See_Comment [Automate d (test code = 10953-6) messag e] The system which generated this result transmitted reference range : /HPF. The reference range was not used to interpret this result as normal/abnormal . Specimen Source (test code = 2795) VIKKI (test code = VIKKI) Screen Printer ID - [auto]Screen Printer ID - ann Lab Interpretation Abnormal (test code = 52117-5) [facility]FLEX URINE [id number] 00:18:00 Test Item Value Reference Range Interpretation [...] code = 516) SOURCE(BEAKER) (test code = 6385) Screen Printer ID - [auto]Screen Printer ID - hankPOCT-GLUCOSE [id number] 23:31:00 Test Item Value Reference Range Interpretation Comments POC-GLUCOSE METER 137 mg/dL 70-110 H : TESTED A T [facility] 6720 (BEAKER) (test code = [place], 1538) [address]: Screen Printer/Techni janel ID = [id number] for CH UA, HENRISON [id number] 19:18:00 Test Item Value Reference Range Interpretation Comments Magnesium (test code = 1.6 mg/dL 1.6-2.6 52951-5) VIKKI (test code = VIKKI) Screen Printer ID - DB Lab Interpretation (test Normal code = 16274-3) [facility] CenterPhosph[facility]2020-05-29 19:18:00 Test Item Value Reference Range Interpretation Comments Phosphorus (test code = 2.9 mg/dL 2.3-4.7 2777-1) VIKKI (test code = VIKKI) Screen Printer ID - DB Lab Interpretation (test Normal code = 26871-4) [facility]PHOSPHORUS2020-05-29 19:18:00 Test Item Value Reference Range Interpretation Comments PHOSPHORUS (BEAKER) (test code = 2.9 mg/dL 2.3-4.7 604) Screen Printer ID - [id number] 19:18:00 Test Item Value Reference Range Interpretation Comments MAGNESIUM (BEAKER) (test code = 1.6 mg/dL 1.6-2.6 627) Screen Printer ID - DBBASIC METABOLIC [id number] 19:18:00 Test Item Value Reference Range Interpretation [...] S NOT APPLICABLE FOR DIALYSIS PATIEN TS. Screen Printer ID - [id number] 19:09:00 Test Item Value Reference Range Interpretation Comments D-Dimer, Quant (test 0.89 See_Comment H [Autom ated code = 91826-5) message] The system which generated this result [...] range. Lab Interpretation Abnormal (test code = 35201-1) [facility]2020-04-05 19:09:00 Test Item Value Reference Range Interpretation Comments SARS-COV2/RT-PCR Not Detected Not Detected, (test code = Negative 28516-8) SARS-COV-2 [facility] PERFORMING LAB (test code = 52280-7) VIKKI (test code = Negative results do [...] of the Act. Fact Sheet for Healthcare Providers:https://www.Help/Systems/Documents/Xper t%20Xpress%20SARS%20CoV- 2/Fact%20Sheets/983-5832 %58DSRR-NLF-3%20HEALTHCA RE%20PROVIDERS%20FACT%20 SHEET.pdf Fact Sheet for Healthcare Patients:https://www.Singly.[employer]/Documents/Xpert %20Xpress%20SARS%20CoV-2 /Fact%20Sheets/3023801% 19KMTD-UMX-7%20PATIENT%2 0FACT%20SHEET.pdf Performing Laboratory:[facility] [place] [address] [facility] CenterD-[id number] 19:09:00 Test Item Value Reference Range Interpretation [...] of thrombosis is within 95-100% range. SARS-COV2/RT-PCR ([facility])2020-04-05 19:09:00 Test Item Value Reference Range Interpretation Comments SARS-COV2/RT-PCR (test Not Detected Not Detected, Negative code = 7849348) SARS-COV-2 PERFORMING LAB [facility] (test code = 8132591) Negative results do not preclude SARS-CoV-2 infection [...] of the Act.Fact Sheet for Healthcare Pro viders:https://www.Care-n-Share.com/Documents/Xpert%20Xpress%20SARS%20CoV-2/Fact%20Sh eets/302-3802%12PWQR-RTM-7%20HEALTHCARE%20PROVIDERS%20FACT%20SHEET.pdfFact Sheet for Healthcare Patients:https://www.[employer]/Documents/Xpert%20Xpress%20SARS%20CoV-2/Fact%20Sheets/302-3801%20SARS-COV -2%20PATIENT%20FACT%20SHEET.pdfPerforming Laboratory:[facility], [place] [address]LQN W/PLT COUNT & AUTO DIFFERENTIAL 2020-04-05 19:01:00 [...] = 2801) RAD, CHEST, 1 VIEW, NON [id number] 17:16:00Reason for exam:->sob, feverShould this be performed at the bedside?->YesFINAL REPORT TECHNIQUE: Frontal chest radiograph dated 04/05/2020. CLINICAL HISTORY: SOB, Fever COMPARISON STUDY: Chest radiograph dated 04/01/2020 IMPRESSION:Endotracheal and enteric tubes have been removed. Lungs are clear. No pleural effusion or pneumothorax. Cardiomediastinalsilhouette is normal in size. No pulmonary edema. No fracture. Signed: Douglas Haleort Verified Date/Time: 04/05/2020 17:16:45 Reading Location: [address] Transitional Reading Room XR chest 1 view portable / [id number] 17:16:00 Interface, External Ris In - 04/05/2020 5:18 PM CDTFINAL REPORT TECHNIQUE: Frontal chest radiograph dated 04/05/2020. CLINICAL HISTORY: SOB, Fever COMPARISON STUDY: Chest radiograph dated 04/01/2020 IMPRESSION:Endotracheal and enteric tubes have been removed. Lungs are clear. No pleural effusion or pneumothorax. Cardiomediastinal silhouette is normal in size. No pulmonary edema. No fracture. Signed: Douglas Hale Verified Date/Time: 04/05/2020 17:16:45 Reading Location: [address] Transitional Reading Room [facility] [id number] 17:04:00 Test Item Value Reference Range Interpretation Comments POC-GLUCOSE METER 128 mg/dL 70-110 H : TESTED A T [facility] 6720 (BEAKER) (test code = [facility], 1538) 19853: Screen Printer/Techni janel ID = [id number] for RO DGERS, JAMECA Lactic acid, [id number] 16:47:00 Test Item Value Reference Range Interpretation Comments Lactate, Venous (test code = 1.24 mmol/L 0.5-2.2 2872) VIKKI (test code = VIKKI) Screen Printer ID - DB Lab Interpretation (test Normal code = 49901-0) [facility] CenterLACTIC ACID, [id number] 16:47:00 Test Item Value Reference Range Interpretation Comments LACTATE BLOOD VENOUS (2) (BEAKER) 1.24 mmol/L 0.50-2.20 (test code = 2872) Screen Printer ID - DBPOCT-GLUCOSE [id number] 11:33:00 Test Item Value Reference Range Interpretation Comments POC-GLUCOSE METER 92 mg/dL 70-110 : TESTED A T [facility] 6720 (BEAKER) (test code = [facility], 1538) 33422: Screen Printer/Techni janel ID = [id number] for RODG ERS, JAMECA POCT-GLUCOSE [id number] 08:34:00 Test Item Value Reference Range Interpretation Comments POC-GLUCOSE METER 136 mg/dL 70-110 H : TESTED A T [facility] 6720 (BEAKER) (test code = [facility], 1538) 29704: Screen Printer/Techni janel ID = [id number] for RO DGERS, JAMECA POCT-GLUCOSE [id number] 21:09:00 Test Item Value Reference Range Interpretation Comments POC-GLUCOSE METER 93 mg/dL 70-110 : TESTED A T [facility] 6720 (BEAKER) (test code = [facility], 1538) 08889: Screen Printer/Techni janel ID = [id number] for DILCIA Z, NADINA POCT-GLUCOSE [id number] 18:02:00 Test Item Value Reference Range Interpretation Comments POC-GLUCOSE METER 84 mg/dL 70-110 : TESTED A T [facility] 6720 (BEAKER) (test code = [place], 1538) 195[address]: Screen Printer/Techni janel ID = [id number] for DARYA SEWELL Hepatic function [id number] 16:01:00 Test Item Value Reference Range Interpretation Comments Protein, Total (test 7.4 See_Comment [Autom ated code = 2885-2) message] The system which generated this result transmit jassi reference range : 6.0 - 8.3 gm/dL . The reference range was not u sed to interpret th is result as normal/abnormal . Albumin (test code = 3.8 g/dL 3.5-5 27731-8) Total Bilirubin (test 1.4 mg/dL 0.2-1.2 H code = 1975-2) Bilirubin, Direct 0.7 mg/dL 0.1-0.5 H (test code = 1968-7) Alkaline Phosphatase 102 U/L 40-150 (test code = 6768-6) AST (test code = 67 U/L 5-34 H 1920-8) ALT (test code = 40 U/L 6-55 1742-6) VIKIK (test code = VIKKI) Screen Printer ID - NTP Lab Interpretation Abnormal (test code = 77774-2) [facility] CenterHEPATIC FUNCTION [id number] 16:01:00 Test Item Value Reference Range Interpretation [...] (test code = 40 U/L 6-55 347) Screen Printer ID - NTPCBC W/PLT COUNT & AUTO [id number] 15:40:00 Test Item Value Reference Range Interpretation [...] PERCENT (BEAKER) (test code = 2801) POCT-GLUCOSE [id number] 11:53:00 Test Item Value Reference Range Interpretation Comments POC-GLUCOSE METER 94 mg/dL 70-110 : TESTED A T [facility] 6720 (BEAKER) (test code = [facility], 1538) 43809: Screen Printer/Techni janel ID = [id number] for BROW N, DARYA POCT-GLUCOSE [id number] 09:06:00 Test Item Value Reference Range Interpretation Comments POC-GLUCOSE METER 114 mg/dL 70-110 H : TESTED A T [facility] 6720 (BEAKER) (test code = [facility], 1538) 00633: Screen Printer/Techni janel ID = [id number] for BR OWN, DARYA [id number] 06:19:00 Test Item Value Reference Range Interpretation Comments PHOSPHORUS (BEAKER) (test code = 3.8 mg/dL 2.3-4.7 604) Screen Printer ID - ZAHRA [id number] 06:19:00 Test Item Value Reference Range Interpretation Comments MAGNESIUM (BEAKER) (test code = 1.8 mg/dL 1.6-2.6 627) Screen Printer ID - ZAHRA MBASIC METABOLIC [id number] 06:19:00 Test Item Value Reference Range Interpretation [...] S NOT APPLICABLE FOR DIALYSIS PATIEN TS. Screen Printer ID - ZAHRA MCBC W/PLT COUNT & AUTO [id number] 05:56:00 Test Item Value Reference Range Interpretation [...] PERCENT (BEAKER) (test code = 2801) POCT-GLUCOSE [id number] 22:05:00 Test Item Value Reference Range Interpretation Comments POC-GLUCOSE METER 110 mg/dL 70-110 : TESTED A T [facility] 6720 (BEAKER) (test code = [facility], 153) 38879: Screen Printer/Techni janel ID = [id number] for AK JOSE C PAIGE POCT-GLUCOSE [id number] 18:00:00 Test Item Value Reference Range Interpretation Comments POC-GLUCOSE METER 127 mg/dL 70-110 H : TESTED A T [facility] 6720 (BEAKER) (test code = [facility], 1538) 73780: Screen Printer/Techni janel ID = [id number] for Sm ith, Elaina POCT-GLUCOSE [id number] 11:47:00 Test Item Value Reference Range Interpretation Comments POC-GLUCOSE METER 100 mg/dL 70-110 : TESTED A T [facility] 6720 (BEAKER) (test code = [facility], 1538) 99482: Screen Printer/Techni janel ID = [id number] for Sm ith, Elaina Hemoglobin [id number] 10:02:00 Test Item Value Reference Range Interpretation Comments Hemoglobin A1C (test code = 4548-4) 6.0 % 4.3-6.1 Lab Interpretation (test code = Normal 77483-4) [facility] CenterHEMOGLOBIN [id number] 10:02:00 Test Item Value Reference Range Interpretation Comments HEMOGLOBIN A1C (BEAKER) (test code = 6.0 % 4.3-6.1 368) POCT-GLUCOSE [id number] 07:38:00 Test Item Value Reference Range Interpretation Comments POC-GLUCOSE METER 115 mg/dL 70-110 H : TESTED A T [facility] 6720 (BEAKER) (test code = [facility], 1538) 20097: Screen Printer/Techni janel ID = [id number] for Elaina Connelly U/S, ABDOMINAL, [id number] 06:20:00Abdomen limited area? Add comment if clarification [...] Leighton Walker MDReport Verified Date/Time: 04/03/2020 06:20:42 [facility] 04:33:00 Test Item Value Reference Range Interpretation Comments PHOSPHORUS (BEAKER) (test code = 3.3 mg/dL 2.3-4.7 604) Screen Printer ID - PIAYA [id number] 04:33:00 Test Item Value Reference Range Interpretation Comments MAGNESIUM (BEAKER) (test code = 1.8 mg/dL 1.6-2.6 627) Screen Printer ID - PIAYA LBASIC METABOLIC [id number] 04:33:00 Test Item Value Reference Range Interpretation [...] S NOT APPLICABLE FOR DIALYSIS PATIEN TS. Screen Printer ID - PIKARINA LHEPATIC FUNCTION [id number] 04:33:00 Test Item Value Reference Range Interpretation [...] (test code = 32 U/L 6-55 347) Screen Printer ID Caroline SALEH LCBC W/PLT COUNT & AUTO [id number] 04:08:00 Test Item Value Reference Range Interpretation [...] PERCENT (BEAKER) (test code = 2801) POCT-GLUCOSE [id number] 21:20:00 Test Item Value Reference Range Interpretation Comments POC-GLUCOSE METER 144 mg/dL 70-110 H : Notified RN/MD: (CHANG) (test code = TESTED AT [facility] 6720 1538) [facility], [address]: Screen Printer/Techni janel ID = [id number] for ZAYDA LANDON MR, BRAIN, WITHOUT [id number] 20:37:00FINAL REPORT MR, BRAIN, WITHOUT CONTRAST INDICATION: [...] Date/Time: 04/02/2020 20:37:03 MR brain without IV [id number] 20:37:00Interface, External Ris In - 04/02/2020 8:39 [...] Signed: Parvin More Verified Date/Time: 04/02/2020 20:37:03 [facility] [id number] 17:29:00 Test Item Value Reference Range Interpretation Comments POC-GLUCOSE METER 131 mg/dL 70-110 H : TESTED A T [facility] 6720 (BEAKER) (test code = [facility], 1538) 10845: Screen Printer/Techni janel ID = [id number] for KATIE ZAMORA LITHIUM [id number] 16:31:00 Test Item Value Reference Range Interpretation Comments LITHIUM LEVEL (BEAKER) < mmol/L 0.8-1.2 L This test was performed (test code = 630) at:[facility] , [facility], [address] [place] [address] Rapid drug screen, [id number] 13:58:00 Test Item Value Reference Range Interpretation Comments Barbiturate Screen Negative Negative (test code = 96277-2) Benzodiazepine Screen Positive Negative A (test code = 07400-4) Cocaine (Metab.) Negative Negative Screen (test code = 3397-7) Methadone Screen (test Negative Negative code = 93356-6) Opiate Screen (test Negative Negative code = 75757-3) Cannabinoid Screen Negative Negative (test code = 11903-1) Amph/Methamph Screen Negative Negative (test code = 22401-6) Phencyclidine Screen Negative Negative (test code = 87998-8) pH, UA (test code = 6.5 5.0-8.0 5803-2) VIKKI (test code = VIKKI) DRUG CUTOFF CONC.Cocaine 300 ng/mL Cannabinoid 50 ng/mLBenzodiazepine 200 ng/mLBarbiturate 200 ng/mLPhencyclidine 25 ng/mLOpiate 300 ng/mLMethadone 300 ng/mLAmphetamine/ 1000 ng/mL Methamphetamine This assay provides an unconfirmed qualitative test result for the clinical management of patients in emergency situations. Chain of custody not maintained. Some niqx-fqo-suzhkls medications, as well as adulterants, may cause inaccurate results. Clinical correlation should be applied. A more comprehensive drug screen or confirmation of a detected drug may be performed upon request.Screen Printer ID - ADMIN Lab Interpretation Abnormal (test code = 47000-4) [facility] CenterRAPID DRUG SCREEN, [id number] 13:58:00 Test Item Value Reference Range Interpretation [...] situations. Chain of custody not maintained. Some gnta-efc-nmvavfv medications, as well as adulterants, may cause inaccurate results. Clinical correlation should be applied. A more comprehensivedrug screen or confirmation of a detected drug may be performed upon request.Screen Printer ID - ADMINEEG W VID 12-26 HR CONTINUOUS MONITORING (VEEG)2020-04-02 13:28:00Reason for exam:- >SEIZURES Should this be performed at the bedside?->YesDate of EE04/01/2020 to 04/02/2020 DATE OF REPORT: 04/02/2020 ACC: [id number] EEG Number: [id number] Start time: 04/01/2020 @ 14:41 PM Stop time: 04/02/2020 @ 11:30 AM ICD-10: R56.9 CPT Code: 99561 HISTORY: 54 y.o. Female with ADHD, bipolar [...] Attending EEG 12-26 HR Continuous Monitoring with [id number] 13:28:00 Interface, External Ris In - 04/02/2020 1:28 PM CDTDate of EE04/01/2020 to 04/02/2020 DATE OF REPORT: 04/02/2020 ACC: [id number] EEG Number: [id number] Start time: 04/01/2020 @ 14:41 PM Stop time: 04/02/2020 @ 11:30 AM ICD-10: R56.9 CPT Code: 78373 HISTORY: 54 y.o. Female with ADHD, bipolar [...] by: ELVIE MCKAY MD on 04/02/2020 01:28 [facility]Ammonia2020-05-26 12:55:00 Test Item Value Reference Range Interpretation Comments Ammonia (test code = 60 See_Comment [Autom ated 41928-0) message] The system which generated this result transmit jassi reference range : 18 - 72 mol/L . The reference range was not u sed to interpret th is result as normal/abnormal . VIKKI (test code = VIKKI) Screen Printer ID - ABILIO E Lab Interpretation Normal (test code = 78996-0) [facility] CenterAMMONIA2020-05-26 12:55:00 Test Item Value Reference Range Interpretation Comments AMMONIA (BEAKER) (test code = 348) 60 mol/L 18-72 Screen Printer ID - ABILIO EPOCT-GLUCOSE [id number] 11:12:00 Test Item Value Reference Range Interpretation Comments POC-GLUCOSE METER 165 mg/dL 70-110 H : TESTED A T [facility] 6720 (BEAKER) (test code = [facility] [employer] [facility], 1538) 27250: Screen Printer/Techni janel ID = [id number] for KATIE ZAMORA POCT-GLUCOSE [id number] 08:44:00 Test Item Value Reference Range Interpretation Comments POC-GLUCOSE METER 97 mg/dL 70-110 : TESTED A T [facility] 6720 (BEAKER) (test code = [facility] [employer] [facility], 1538) 89606: Screen Printer/Techni janel ID = [id number] for HARIS FUCHS BASIC METABOLIC [id number] 05:35:00 Test Item Value Reference Range Interpretation [...] S NOT APPLICABLE FOR DIALYSIS PATIEN TS. Screen Printer ID - MARYBC W/PLT COUNT & AUTO [id number] 05:04:00 Test Item Value Reference Range Interpretation [...] PERCENT (BEAKER) (test code = 2801) POCT-GLUCOSE [id number] 02:05:00 Test Item Value Reference Range Interpretation Comments POC-GLUCOSE METER 116 mg/dL 70-110 H : TESTED A T [facility] 6720 (BEAKER) (test code = [facility], 1538) 36362: Screen Printer/Techni janel ID = [id number] for Neda Pineda T4, [id number] 20:56:00 Test Item Value Reference Range Interpretation Comments Free T4 (test code = 1.19 ng/dL 0.7-1.48 3024-7) VIKKI (test code = VIKKI) Screen Printer ID - NTP Lab Interpretation (test Normal code = 09278-4) [facility] CenterT4, [id number] 20:56:00 Test Item Value Reference Range Interpretation Comments FREE T4 (BEAKER) (test code = 655) 1.19 ng/dL 0.70-1.48 Screen Printer ID - NTPPOCT-GLUCOSE [id number] 20:54:00 Test Item Value Reference Range Interpretation Comments POC-GLUCOSE METER 99 mg/dL 70-110 : TESTED A T [facility] 6720 (AKER) (test code = [facility], 1538) 73135: Screen Printer/Techni janel ID = [id number] for DUNG DOWLING TSH/Free T4 If [id number] 20:18:00 Test Item Value Reference Range Interpretation Comments TSH (test code = 0.057 See_Comment L [Automated 85552-9) message] The system which generated this result transmit jassi reference range : 0.350 - 4.940 uIU/mL. The reference range was not used to interpret this result as normal/abnormal . VIKKI (test code = VIKKI) Screen Printer ID - NTP Lab Interpretation Abnormal (test code = 45814-0) [facility] CenterTSH/FREE T4 IF [id number] 20:18:00 Test Item Value Reference Range Interpretation Comments THYROID STIMULATING HORMONE 0.057 uIU/mL 0.350-4.940 L (AKER) (test code = 772) Screen Printer ID - NTPVitamin B12 and [id number] 20:07:00 Test Item Value Reference Range Interpretation Comments Vitamin B12 (test 929 pg/mL 213-816 H code = 2132-9) Folate (test code = 15.80 ng/mL See_Comment [Automa jassi 2284-8) message] The system which generated this result transmit jassi reference range : >=7.00. The reference range was not used to interpret this result as normal/abnormal . VIKKI (test code = VIKKI) Screen Printer ID - NTP Lab Interpretation Abnormal (test code = 72927-8) [facility] CenterVITAMIN B12 AND [id number] 20:07:00 Test Item Value Reference Range Interpretation Comments VITAMIN B12 (BEAKER) (test code = 929 pg/mL 213-816 H 774) FOLATE (BEAKER) (test code = 362) 15.80 ng/mL >=7.00 Screen Printer ID - NTPHEPATIC FUNCTION [id number] 19:32:00 Test Item Value Reference Range Interpretation [...] (test code = 31 U/L 6-55 347) Screen Printer ID - NTPPOCT-GLUCOSE [id number] 18:09:00 Test Item Value Reference Range Interpretation Comments POC-GLUCOSE METER 96 mg/dL 70-110 : TESTED A T [facility] 6720 (BEAKER) (test code = [facility] [place], 1538) [address]: Screen Printer/Techni janel ID = [id number] for SLY DUBOSE POCT-GLUCOSE [id number] 12:33:00 Test Item Value Reference Range Interpretation Comments POC-GLUCOSE METER 102 mg/dL 70-110 : TESTED A T [facility] 6720 (ANNIEAKER) (test code = [place], 1538) [address]: Screen Printer/Techni janel ID = [id number] for JOSEPHINE HOOVER Troponin [id number] 07:53:00 Test Item Value Reference Range Interpretation Comments Troponin I (test code = 0.01 ng/mL 0-0.03 03903-9) VIKKI (test code = VIKKI) Troponin I [...] NTP Lab Interpretation (test Normal code = 30789-5) [facility] CenterTROPONIN [id number] 07:53:00 Test Item Value Reference Range Interpretation Comments TROPONIN I (ANNIEAKER) (test code = 0.01 ng/mL 0.00-0.03 397) [...] failure, acidosis, acute neurological disease, and persistent tachyarrhythmia.Screen Printer ID - NTPSARS-COV2/RT-PCR ([facility])2020-04-01 06:29:00 Test Item Value Reference Range Interpretation Comments SARS-COV2/RT-PCR (test Not Detected Not Detected, Negative code = 7113873) SARS-COV-2 PERFORMING LAB [facility] (test code = 5495717) Negative results do not preclude SARS-CoV-2 infection [...] of the Act.Fact Sheet for Healthcare Pro viders:https://www.[employer]/Documents/Xpert%20Xpress%20SARS%20CoV-2/Fact%20Sh eets/302-3802%78WBPF-XOB-2%20HEALTHCARE%20PROVIDERS%20FACT%20SHEET.pdfFact Sheet for Healthcare Patients:https://www.[employer]/Documents/Xpert%20Xpress%20SARS%20CoV-2/Fact%20Sheets/302-3801%20SARS-COV -2%20PATIENT%20FACT%20SHEET.pdfPerforming Laboratory:[facility] [facility] [address].[place], [place] [address]POS W/PLT COUNT & AUTO DIFFERENTIAL 2020-04-01 05:56:00 [...] code = 2801) URINALYSIS W/ REFLEX URINE [id number] 05:55:00 Test Item Value Reference Range Interpretation [...] = 1584) SOURCE(BEAKER) (test code = 2795) Screen Printer ID - [auto]Screen Printer ID - techCreatine Kinase (CK)2020-04-01 05:42:00 Test Item Value Reference Range Interpretation Comments Total CK (test code = 79 U/L 29-200 2157-6) VIKKI (test code = VIKKI) Screen Printer ID - ZAHRA M Lab Interpretation (test Normal code = 62655-8) [facility] CenterPHOSPHORUS2020-05-25 05:42:00 Test Item Value Reference Range Interpretation Comments PHOSPHORUS (BEAKER) (test code = 3.0 mg/dL 2.3-4.7 604) Screen Printer ID - ZAHRA [id number] 05:42:00 Test Item Value Reference Range Interpretation Comments MAGNESIUM (BEAKER) (test code = 2.1 mg/dL 1.6-2.6 627) Screen Printer ID - ZAHRA MBASIC METABOLIC [id number] 05:42:00 Test Item Value Reference Range Interpretation [...] S NOT APPLICABLE FOR DIALYSIS PATIEN TS. Screen Printer ID - ZAHRA MCREATINE KINASE (CK)2020-04-01 05:42:00 Test Item Value Reference Range Interpretation Comments CREATINE KINASE TOTAL (BEAKER) (test 79 U/L code = 380) Screen Printer ID - ZAHRA MPT/[id number] 05:34:00 Test Item Value Reference Interpretation Comments Range Protime (test code = 15.4 See_Comment H [Autom ated 8992-2) message] The system which generated this result transmitted reference range : 11.9 - 14.2 seconds. The reference range was not used to interpret this result as normal/abnormal . INR (test code = 1.3 See_Comment [Automated 1591-6) message] The system which generated this result transmitted reference range : <=5.9. The reference range was not used to interpret this result as normal/abnormal . PTT (test code = 25.8 See_Comment [Automated 38496-1) message] The system which generated this result [...] valves. Lab Interpretation Abnormal (test code = 77159-4) [facility] CenterPT/[id number] 05:34:00 Test Item Value Reference Range Interpretation [...] mechanical heart valves.RAD, CHEST, 1 VIEW, NON [id number] 05:12:00Reason for exam:->post intubationIs the patient ?->Unknown [...] of the following conditions: respiratory failure and POWDER EXPERT failure or compromise.Critical care was time spent [...] of radiographic studies and re-evaluation of patient's condition.[facility] CenterECG/EKG Eycesavsqlgbga5161-29-21 04:51:54Glendy Clayton MD 04/15/2020 3:33 PMECG/EKG InterpretationDate/Time: 04/15/2020 3:33 PMPerformed by: Glendy Clayton MDAuthorized by: Arturo Downs MD The ECG was interpreted by ED physician. The ECG is interpreted as sinus tachycardia. Rate is tachycardic. Heart rate is 111 BPM.ST segments normal. T waves normal. [place] is normal. Other findings include: prolonged QTc interval. Clinical Impression: non-specific ECGECG reviewed and does not meet STEMI criteria. Patient tolerance: Patient tolerated the procedure well with no immediate complicationsCHI [facility] Glucose, [id number] 05:26:00 Test Item Value Reference Range Interpretation Comments POC Glucose (test 136 mg/dL 70-115 H Notify RN or MDIf you code = POCGLUC) consider you r patient critically ill, the [place]ira Accu-Chek InformII metershould not be used for Glucose determinations. Draw a venous Glucose and send to the Main Lab for Analysis. [id number] 08:15:00 Test Item Value Reference Range Interpretation Comments [place] (test code = LI) 0.44 mmol/L 0.6-1.2 L POC Glucose, [id number] 05:37:00 Test Item Value Reference Range Interpretation Comments POC Glucose (test 134 mg/dL 70-115 H If you con sealing and canceling machine operator your code = POCGLUC) patient crit ically ill, the Moira Accu- Chek InformII meters hould not be used for Glu cose determinations. Draw a venous Glucose and send to the Main Lab for Analysis. POC Glucose, [id number] 07:28:00 Test Item Value Reference Range Interpretation Comments POC Glucose (test 128 mg/dL 70-115 H If you con sealing and canceling machine operator your code = POCGLUC) patient crit ically ill, the [place]ira Accu- Chek InformII meters hould not be used for Glu cose determinations. Draw a venous Glucose and send to the Main Lab for Analysis. POC Glucose, [id number] 20:18:00 Test Item Value Reference Range Interpretation Comments POC Glucose (test 121 mg/dL 70-115 H If you con sealing and canceling machine operator your code = POCGLUC) patient crit ically ill, the [place]ira Accu- Chek InformII meters hould not be used for Glu cose determinations. Draw a venous Glucose and send to the Main Lab for Analysis. BHCG, Serum, [id number] 22:36:00 Test Item Value Reference Range Interpretation Comments Preg Qual [Se] (test code = BSHCG) Negative Negative N POC Glucose, [id number] 15:14:00 Test Item Value Reference Range Interpretation Comments POC Glucose (test 117 mg/dL 70-115 H If you con sealing and canceling machine operator your code = POCGLUC) patient crit ically ill, the [place]ira Accu- Chek InformII meters hould not be used for Glu cose determinations. Draw a venous Glucose and send to the Main Lab for Analysis.
[2021-02-17 23:30] LABS: Absolute Lymphocytes (CBC) 1.1 K/uL (0.7-4.9); Basophils % 0.5 % (0-1.3); Hematocrit 40.1 % (36.0-45.0); Lymphocytes % 15.2 % (15.3-44.8); RBC Red Blood Cell Count 4.42 M/uL (3.86-4.86)
[2021-02-17 23:31] LABS: Protime INR 1.08
[2021-02-17] MEDS ORDERED: ASPIRIN 81 MG CHEWABLE TABLET ONE (23:40)
[2021-02-17 23:44] LABS: ALT/SGPT 24 U/L (12-78); AST/SGOT 15 U/L (15-37); Albumin 3.1 g/dL (3.4-5.0); Alkaline Phosphatase 127 U/L (45-117); BUN Blood Urea Nitrogen 12 mg/dL (7-18); Bicarbonate 28 mmol/L (21-32); Bilirubin Direct 0.2 mg/dL (0-0.2); Bilirubin Total 0.6 mg/dL (0.2-1.0); Glucose Level 185 mg/dL (74-106); Magnesium 2.2 mg/dL (1.8-2.4); NT PRO-BNP 131 pg/mL (<125); Potassium 3.8 mmol/L (3.5-5.1); Protein, Total 7.3 g/dL (6.4-8.2); Sodium Level 141 mmol/L (136-145); Troponin (Emerg Dept Use Only) < 0.02 ng/mL (0.0-0.045)
--- NOTE | 2021-02-17 23:54 | EDPHYS ---
Physician Documentation [facility] Name: Wendi Norton Age: 55 yrs Sex: Female : 1965 Arrival Date: 02/17/2021 Time: 22:50 Bed 6 Private MD: ED Physician Cam Zambrano HPI: 02/17 23:15 This 55 yrs old Female presents to ER via EMS with complaints of chest pain. ma2 23:15 Onset: gradually, 2 day(s) ago. Associated signs and symptoms: Pertinent negatives: ma2 cough, lower extremity pain, lightheadedness. Severity of pain: At its worst the pain was mild in the emergency department the pain has resolved. Historical: - Allergies: 22:56 No Known Allergies; mg2 - PMHx: 22:56 ADD/ADHD; Asthma; Bipolar disorder; breast cancer- in remission; COPD; Depression; mg2 Diabetes - NIDDM; Diverticulitis; Hepatitis; Pain Management; PTSD; - PSHx: 22:56 Tubal ligation; mg2 - Immunization history:: Client reports receiving the 2nd dose of the Covid vaccine, Date received: February 16, 2021. - Social history:: Smoking status: Patient reports the use of cigarette tobacco products, Patient/guardian denies using street drugs, IV drugs. - Family history:: not pertinent. ROS: 23:15 Constitutional: Negative for fever, chills, and weight loss. ma2 23:15 All other systems are negative. Exam: 23:15 Constitutional: This is a well developed, well nourished patient who is awake, alert, ma2 and in no acute distress. Head/Face: Normocephalic, atraumatic. Eyes: Pupils equal round and reactive to light, extra-ocular motions intact. Lids and lashes normal. Conjunctiva and sclera are non-icteric and not injected. Cornea within normal limits. Periorbital areas with no swelling, redness, or edema. ENT: Nares patent. No nasal discharge, no septal abnormalities noted. Tympanic membranes are normal and external auditory canals are clear. Oropharynx with no redness, swelling, or masses, exudates, or evidence of obstruction, uvula midline. Mucous membranes moist. Neck: Trachea midline, no thyromegaly or masses palpated, and no cervical lymphadenopathy. Supple, full range of motion without nuchal rigidity, or vertebral point tenderness. No Meningismus. Chest/axilla: Normal chest wall appearance and motion. Nontender with no deformity. No lesions are appreciated. Cardiovascular: Regular rate and rhythm with a normal S1 and S2. No gallops, murmurs, or rubs. Normal PMI, no JVD. No pulse deficits. Respiratory: Lungs have equal breath sounds bilaterally, clear to auscultation and percussion. No rales, rhonchi or wheezes noted. No increased work of breathing, no retractions or nasal flaring. Abdomen/GI: Soft, non-tender, with normal bowel sounds. No distension or tympany. No guarding or rebound. No evidence of tenderness throughout. Skin: Warm, dry with normal turgor. Normal color with no rashes, no lesions, and no evidence of cellulitis. MS/ Extremity: Pulses equal, no cyanosis. Neurovascular intact. Full, normal range of motion. Neuro: Awake and alert, GCS 15, oriented to person, place, time, and situation. Cranial nerves II-XII grossly intact. Motor strength 5/5 in all extremities. Sensory grossly intact. Cerebellar exam normal. Normal gait. Vital Signs: 22:52 BP 119 / 66; Pulse 73; Resp 20; Temp 97; Pulse Ox 88% on R/A; Weight 90.72 kg; Height 5 mg2 ft. 4 in. (162.56 cm); 23:18 Pulse Ox 93% on 2 lpm NC; mg2 02/18 01:07 BP 134 / 81; Pulse 68; Resp 18; Pulse Ox 93% on 2 lpm NC; mg2 02/17 22:52 Body Mass Index 34.33 (90.72 kg, 162.56 cm) mg2 MDM: 02/17 22:57 Patient medically screened. ma2 23:15 Differential diagnosis: abnormal EKG, anxiety, gastroesophageal reflux disease (GERD), ma2 stable angina. The patient was given aspirin in the Emergency Department. 23:51 Data reviewed: vital signs, nurses notes. ma2 23:52 Counseling: I had a detailed discussion with the patient and/or guardian regarding: the ma2 historical points, exam findings, and any diagnostic results supporting the discharge/admit diagnosis, the presence of at least one elevated blood pressure reading (>120/80) during this emergency department visit, lab results, the need for further work-up and treatment in the hospital. 02/17 22:50 Order name: Basic Metabolic Panel mg2 02/17 22:50 Order name: CBC with Diff mg2 02/17 22:50 Order name: LFT's mg2 02/17 22:50 Order name: Magnesium; Complete Time: 23:51 mg2 02/17 22:50 Order name: NT PRO-BNP; Complete Time: 23:51 mg2 02/17 22:50 Order name: PT-INR; Complete Time: 23:51 mg2 02/17 22:50 Order name: Troponin (emerg Dept Use Only); Complete Time: 23:51 mg2 02/17 22:51 Order name: Basic Metabolic Panel; Complete Time: 23:51 EDMS 02/17 22:51 Order name: CBC with Automated Diff EDMS 02/17 22:51 Order name: Liver (Hepatic) Function; Complete Time: 23:51 EDMS 02/17 23:33 Order name: CBC Smear Scan EDMS 02/18 00:51 Order name: ABG la1 02/18 00:51 Order name: ABG Arterial Blood Gas EDMS 02/17 22:50 Order name: XRAY Chest (1 view) mg2 02/17 22:50 Order name: EKG; Complete Time: 22:51 mg2 02/17 22:50 Order name: Cardiac monitoring; Complete Time: 23:20 mg2 02/17 22:50 Order name: EKG - Nurse/Tech; Complete Time: 23:19 mg2 02/17 22:50 Order name: IV Saline Lock; Complete Time: 23:19 mg2 02/17 22:50 Order name: Labs collected and sent; Complete Time: 23:19 mg2 02/17 22:50 Order name: O2 Per Protocol; Complete Time: 23:19 mg2 02/17 22:50 Order name: O2 Sat Monitoring; Complete Time: 23:19 mg2 02/18 01:33 Order name: SARS-COV-2 RT PCR EDMS Administered Medications: 23:19 Drug: Aspirin Chewable Tablet 324 mg Route: PO; mg2 02/18 01:08 Follow up: Response: No adverse reaction mg2 Disposition: 02/17/21 23:53 Hospitalization ordered by Jesus Metcalf for Observation. Preliminary diagnosis is Chest pain, unspecified. - Bed requested for Telemetry/MedSurg (observation). - Status is Observation. mg2 - Condition is Stable. - Problem is new. - Symptoms are unchanged. Signatures: Dispatcher [employer] EDFidelia Pascual, RN RN dw Cam Zambrano MD MD ma2 Jesse Montalvo RN RN mg2 Corrections: (The following items were deleted from the chart) 02/17 23:47 23:24 CORONAVIRUS+MR.LAB.BRZ ordered. EDTX EDTX 02/18 01:44 02/17 23:53 Hospitalization Ordered by Jesus Metcalf DO for Observation. Preliminary dw diagnosis is Chest pain, unspecified. Bed requested for Telemetry/MedSurg (observation). Status is Observation. Condition is Stable. Problem is new. Symptoms are unchanged. [facility] 02/18 02:22 01:44 02/17/2021 23:53 Hospitalization Ordered by Jesus Metcalf DO for Observation. mg2 Preliminary diagnosis is Chest pain, unspecified. Bed requested for Telemetry/MedSurg (observation). Status is Observation. Condition is Stable. Problem is new. Symptoms are unchanged. dw
--- NOTE | 2021-02-17 23:54 | ER ---
Nurse's Notes [facility] Name: Wendi Norton Age: 55 yrs Sex: Female : 1965 Arrival Date: 02/17/2021 Time: 22:50 Bed 6 Private MD: Diagnosis: Chest pain, unspecified Presentation: 02/17 22:52 Chief complaint: EMS states: she started having epigastric and chest pain radiating to mg2 her neck, nausea and shortness of breath since 3 days ago. she was seen by us last night for asthma but she refused to go to ER because she felt better after the breathing treatment. Coronavirus screen: Client denies travel out of the [place] in the last 14 days. Ebola Screen: No symptoms or risks identified at this time. Initial Sepsis Screen: Does the patient meet any 2 criteria? No. Patient's initial sepsis screen is negative. Does the patient have a suspected source of infection? No. Patient's initial sepsis screen is negative. Risk Assessment: Do you want to hurt yourself or someone else? Patient reports no desire to harm self or others. Onset of symptoms was February 17, 2021. 22:52 Method Of Arrival: EMS: [facility] mg2 22:52 Acuity: RAUL 3 mg2 Historical: - Allergies: 22:56 No Known Allergies; mg2 - PMHx: 22:56 ADD/ADHD; Asthma; Bipolar disorder; breast cancer- in remission; COPD; Depression; mg2 Diabetes - NIDDM; Diverticulitis; Hepatitis; Pain Management; PTSD; - PSHx: 22:56 Tubal ligation; mg2 - Immunization history:: Client reports receiving the 2nd dose of the Covid vaccine, Date received: February 16, 2021. - Social history:: Smoking status: Patient reports the use of cigarette tobacco products, Patient/guardian denies using street drugs, IV drugs. - Family history:: not pertinent. Screenin:17 Abuse screen: Denies threats or abuse. Denies injuries from another. Nutritional mg2 screening: No deficits noted. Tuberculosis screening: No symptoms or risk factors identified. Fall Risk IV access (20 points). Assessment: 23:16 General: Appears in no apparent distress. comfortable, Behavior is calm, cooperative. mg2 Pain: Complains of pain in chest Pain currently is 3 out of 10 on a pain scale. Quality of pain is described as aching, Pain began gradually. Neuro: Level of Consciousness is awake, alert, obeys commands, Oriented to person, place, time, situation. Cardiovascular: Capillary refill < 3 seconds Patient's skin is warm and dry. Respiratory: Airway is patent Respiratory effort is even, unlabored, Respiratory pattern is regular, symmetrical, Breath sounds with wheezes bilaterally. Respiratory: Reports shortness of breath cough that is. GI: Reports nausea. : No signs and/or symptoms were reported regarding the genitourinary system. EENT: No signs and/or symptoms were reported regarding the EENT system. Derm: Skin is intact, is healthy with good turgor, Skin is pink, warm \T\ dry. normal. Musculoskeletal: Circulation, motion, and sensation intact. Capillary refill < 3 seconds. 02/18 01:07 Reassessment: [facility] -hospitalist came and assessed the patient. admission advised. mg2 Vital Signs: 02/17 22:52 BP 119 / 66; Pulse 73; Resp 20; Temp 97; Pulse Ox 88% on R/A; Weight 90.72 kg; Height 5 mg2 ft. 4 in. (162.56 cm); 23:18 Pulse Ox 93% on 2 lpm NC; mg2 02/18 01:07 BP 134 / 81; Pulse 68; Resp 18; Pulse Ox 93% on 2 lpm NC; mg2 02/17 22:52 Body Mass Index 34.33 (90.72 kg, 162.56 cm) mg2 ED Course: 02/17 22:50 Patient arrived in ED. mg2 22:50 Jesse Montalvo, KEYUR is Primary Nurse. mg2 22:56 Triage completed. mg2 22:56 Cam Zambrano MD is Attending Physician. ma2 22:57 Arm band placed on. mg2 23:17 Patient has correct armband on for positive identification. site monitor on. Pulse mg2 ox on. NIBP on. Door closed. Warm blanket given. 23:18 No provider procedures requiring assistance completed. Inserted saline lock: 20 gauge mg2 in left forearm, using aseptic technique. Blood collected. 23:23 XRAY Chest (1 view) In Process Unspecified. EDMS 23:53 Jesus Metcalf DO is Hospitalizing Provider. ma2 02/18 01:57 Patient admitted, IV remains in place. intact, No redness/swelling at site. rr5 Administered Medications: 02/17 23:19 Drug: Aspirin Chewable Tablet 324 mg Route: PO; mg2 02/18 01:08 Follow up: Response: No adverse reaction mg2 Outcome: 02/17 23:53 Decision to Hospitalize by Provider. ma2 02/18 01:57 Admitted to Med/surg accompanied by nurse, via stretcher, room 222, with oxygen, with rr5 chart, Report called to dionte Condition: stable Instructed on the need for admit. 02:22 Patient left the ED. mg2 Signatures: Dispatcher [employer] EDMS Cam Zambrano MD MD ma2 Jesse Montalvo, KEYUR RN mg2 Jonnie Camara RN RN rr5
--- NOTE | 2021-02-18 01:02 | P.HP ---
Certification for Inpatient Patient admitted to: Observation With expected LOS: <2 Midnights Patient will require the following post-hospital care: None Practitioner: I am a practitioner with admitting privileges, knowledge of patient current condition, hospital course, and medical plan of care. Services: Services provided to patient in accordance with Admission requirements found in Title 42 Section 412.3 of the Code of Federal Regulations Patient History Date of Service: 02/18/21 Reason for admission: Chest pain History of Present Illness: 55-year-old female with history of COPD on home oxygen, hepatitis-C, diabetes mellitus type 2, PTSD/bipolar disorder presents emergency department for chest pain. Patient reports that she has had intermittent pressure-like chest pain radiating to the left jaw for the last 3 days associated with some dizziness and shortness of breath. Patient denies any previous cardiac evaluation. Patient worked up in the emergency department, EKG without acute changes, troponin negative, chest x-ray unremarkable. BNP 131, also noted to be thrombocytopenic with platelet count of 88. ED provider wishes to admit for chest pain rule out. Allergies No Known Drug Allergies Allergy (Verified 05/06/17 02:44) Unknown Home Medications: Quetiapine [Seroquel*] 600 mg PO BEDTIME 02/24/13 Dextroamphetamine/Amphetamine [Dextroamp-Amphetamin 30 mg Tab] 30 mg PO BID 08/08/17 Fluoxetine HCl 40 mg PO DAILY 08/08/17 Rifaximin [Xifaxan] 550 mg PO BID 08/08/17 Zolpidem Tartrate [Zolpidem Tartrate ER] 12.5 mg PO BEDTIME 08/08/17 clonazePAM [Clonazepam] 2 mg PO QID 08/08/17 Quetiapine Fumarate [Seroquel] 50 mg PO DAILY 08/09/17 [place] Carbonate [Lithotabs *] 300 mg PO DAILY #30 tab 08/11/17 - Past Medical/Surgical History Diabetic: No -: Asthma -: Bipolar disorder -: Hepatitis-C -: PTSD -: History of medication overdose -: History of suicide attempt -: History of medication abuse -: Diabetes mellitus type 2 -: -: Lower extremity surgery Psychosocial/ Personal History: The patient has a significant other. - Family History Family History: Reviewed- Non-Contributory - Social History Smoking Status: Current every day smoker Counseled patient to stop smoking for: less than 10 minutes Smoking therapy provided: Yes Alcohol use: No CD- Drugs: Yes Caffeine use: Yes Review of Systems 10-point ROS is otherwise unremarkable Respiratory: Shortness of Breath Cardiovascular: Chest Pain Physical Examination - Physical Exam General: Alert, In no apparent distress HEENT: Atraumatic, PERRLA, Mucous membr. moist/pink Neck: Supple, 2+ carotid pulse no bruit, No LAD Respiratory: Clear to auscultation bilaterally, Normal air movement Cardiovascular: Regular rate/rhythm, Normal S1 S2 Gastrointestinal: Normal bowel sounds, No tenderness Musculoskeletal: No tenderness Integumentary: No rashes Neurological: Normal gait, Normal speech, Normal strength at 5/5 x4 extr, Normal tone, Normal affect Lymphatics: No axilla or inguinal lymphadenopathy - Studies Laboratory Data (last 24 hrs) 02/17/21 23:00: PT 12.4, INR 1.08 02/17/21 23:00: WBC 7.50, Hgb 12.7, Hct 40.1, Plt Count 88 L 02/17/21 23:00: Sodium 141, Potassium 3.8, BUN 12, Creatinine 0.93, Glucose 185 H, Magnesium 2.2, Total Bilirubin 0.6, AST 15, ALT 24, Alkaline Phosphatase 127 H Assessment and Plan - Plan Assessment Chest pain rule out ACS Diabetes mellitus type 2 Asthma/COPD on home oxygen therapy History of hepatitis-C with thrombocytopenia Bipolar disorder/PTSD Plan Chest pain rule out ACS: Monitor on telemetry, trend troponins, cardiology consulted. Continue with aspirin, beta-damion, statin therapy. SCDs for DVT prophylaxis as patient is with thrombocytopenia secondary to hepatitis-C. Appreciate further input from cardiology. Diabetes mellitus type 2: A.c. HS Accu-Cheks, sliding scale insulin therapy. A1c with morning labs Asthma/COPD on home oxygen therapy: Continue with home oxygen, patient not wheezing at this time. Patient was very drowsy at time of examination, ABG pending to rule out hypercapnia. History of hepatitis-C with thrombocytopenia: Stable, patient with history thrombocytopenia in the past, similar to comparison. SCDs for DVT prophylaxis Bipolar disorder/PTSD: Obtain and continue home medications as appropriate, patient very drowsy at this time, patient with history of medication abuse. Will need to evaluate home medications and give only as needed. Discharge Plan: Home Plan to discharge in: 24 Hours - Advance Directives Does patient have a Living Will: No Does patient have a Durable POA for Healthcare: No - Code Status/Comfort Care Code Status Assessed: Yes (Full code) Critical Care: No Time Spent Managing Pts Care (In Minutes): 55
[2021-02-18 01:11] LABS: Blood Morphology Comment NOT SEEN (NOT SEEN); Platelet Estimate DECR; White Blood Cell Scan OK (OK)
[2021-02-18 01:52] LABS: Blood Gas Oxyhemoglobin 90.6 % (94-97); Blood O2 Saturation 95.3 % (92-98.5)
[2021-02-18] MEDS ORDERED: ONDANSETRON 4 MG/2 ML VIAL IV PRN (02:56)
[2021-02-18] MEDS ORDERED: ACETAMINOPHEN 500 MG TAB PO PRN (02:56)
[2021-02-18 03:16] LABS: Urine Appearance CLEAR (Clear); Urine Bilirubin NEGATIVE (Negataive); Urine Blood NEGATIVE (Negative); Urine Color YELLOW (Yellow); Urine Glucose NEGATIVE (Negative); Urine Protein NEGATIVE (Negative); Urine Specific Gravity <=1.005 (1.005-1.030); Urine Urobilinogen 0.2 mg/dL (0.2-1.0)
[2021-02-18 03:25] LABS: Urine Microscopic Reflex NO UMIC
[2021-02-18 04:13] VITALS: BMI 38.7
[2021-02-18] MEDS ORDERED: METOPROLOL TAR 25 MG TAB PO SCH (06:00)
[2021-02-18] MEDS: INSULIN -REGULAR HUMAN 50 UNIT/0.5 ML ML SQ SCH ×2 (06:00→12:00)
[2021-02-18 06:19] LABS: Absolute Lymphocytes (CBC) 1.1 K/uL (0.7-4.9); Basophils % 0.3 % (0-1.3); Hematocrit 37.7 % (36.0-45.0); Lymphocytes % 15.9 % (15.3-44.8); MPV 9.9 fL (7.6-11.3); RBC Red Blood Cell Count 4.19 M/uL (3.86-4.86)
[2021-02-18 07:19] LABS: ALT/SGPT 23 U/L (12-78); AST/SGOT 13 U/L (15-37); Albumin 3.1 g/dL (3.4-5.0); Alkaline Phosphatase 120 U/L (45-117); BUN Blood Urea Nitrogen 9 mg/dL (7-18); Bicarbonate 30 mmol/L (21-32); Bilirubin Total 0.7 mg/dL (0.2-1.0); Glucose Level 107 mg/dL (74-106); HDL Cholesterol 60 mg/dL (40-60); LDL Cholesterol, Calculated 59 (<130); Magnesium 2.2 mg/dL (1.8-2.4); Potassium 4.1 mmol/L (3.5-5.1); Sodium Level 143 mmol/L (136-145); Thyroid Stimulating Hormone 0.966 uIU/mL (0.360-3.740); Troponin I < 0.02 ng/mL (0.0-0.045)
--- NOTE | 2021-02-18 07:22 | P.DS ---
Admission Date: 02/18/21 Discharge Date: 02/18/21 Primary Care Provider: unknown Disposition: ROUTINE DISCHARGE Discharge Condition: GOOD Reason for Admission: Chest pain Consultations: Cardiology-Dr. Mercado Procedures: COVID: Negative Medical Problem List: Chest pain, atypical likely related to COPD exacerbation on chronic oxygen Diabetes mellitus type 2 History of hepatitis-C with chronic thrombocytopenia Bipolar disorder/PTSD GERD Brief History of Present Illness: 55-year-old female with history of COPD on home oxygen, hepatitis-C, diabetes mellitus type 2, PTSD/bipolar disorder presents emergency department for chest pain. Patient reports that she has had intermittent pressure-like chest pain radiating to the left jaw for the last 3 days associated with some dizziness and shortness of breath. Patient denies any previous cardiac evaluation. Patient worked up in the emergency department, EKG without acute changes, troponin negative, chest x-ray unremarkable. BNP 131, also noted to be thrombocytopenic with platelet count of 88. Patient was admitted for further evaluation and treatment. Hospital Course: Patient presented with chest pain. Cardiac enzymes unremarkable. Cardiology was consulted to further evaluate. Patient with underlying COPD. Some wheezing noted. Patient was given medication with improvement. Patient reports that she does not have any oxygen at home which she uses. Social work consulted to help reinitiate home oxygen to maintain sats above 93%. At discharge we will continue with prednisone 10 mg 1 pill twice daily for 7 days. Also recommended continue Advair one puffs twice daily and albuterol 2 puffs 3 times a day as needed for shortness of breath for her COPD. COPD education provided. Patient with diabetes mellitus type 2. Prior A1c 6.6. Continue with diabetic diet. Recommend to maintain blood sugar less than 140 fasting and less than 200 after meals. Patient with history of chronic hepatitis C with thrombocytopenia. This appears stable. At discharge she will continue with her medications including Xifaxan. Recommend follow-up with GI to further monitor. Patient with bipolar disorder/PTSD. She will continue with her medications at this time. Recommend to decrease and slowly wean off benzodiazepine. Recommend follow-up with psychiatry to further monitor and adjust her medication. Patient may have underlying GERD. Recommend to continue Protonix 40 mg daily. Recommend follow-up with GI to further adjust. Suspect underlying obstructive sleep apnea. Recommend follow-up with pulmonology as an outpatient to further evaluate. Patient would benefit with sleep study to further address. This can be done as an outpatient. Vital Signs/Physical Exam: Temp Pulse Resp BP Pulse Ox 97 F 75 18 96/58 L 93 02/18/21 03:30 02/18/21 05:29 02/18/21 03:30 02/18/21 05:29 02/18/21 03:30 General: Alert, In no apparent distress, Oriented x3, Cooperative HEENT: Atraumatic Neck: Supple Respiratory: Clear to auscultation bilaterally, Normal air movement Cardiovascular: Normal pulses, Regular rate/rhythm Gastrointestinal: Normal bowel sounds, No tenderness, No masses, No rebound, No guarding Integumentary: No tenderness/swelling Neurological: Normal speech, Normal strength at 5/5 x4 extr, Normal tone, Normal affect Laboratory Data at Discharge: WBC 7.10 K/uL (4.3-10.9) 02/18/21 05:54 Hgb 12.0 g/dL (12.0-15.0) 02/18/21 05:54 Hct 37.7 % (36.0-45.0) 02/18/21 05:54 Plt Count 90 K/uL (152-406) L 02/18/21 05:54 PT 12.4 SECONDS (9.5-12.5) 02/17/21 23:00 INR 1.08 02/17/21 23:00 Sodium 141 mmol/L (136-145) 02/17/21 23:00 Potassium 3.8 mmol/L (3.5-5.1) 02/17/21 23:00 BUN 12 mg/dL (7-18) 02/17/21 23:00 Creatinine 0.93 mg/dL (0.55-1.3) 02/17/21 23:00 Glucose 185 mg/dL (74-106) H 02/17/21 23:00 Magnesium 2.2 mg/dL (1.8-2.4) 02/17/21 23:00 Total Bilirubin 0.6 mg/dL (0.2-1.0) 02/17/21 23:00 AST 15 U/L (15-37) 02/17/21 23:00 ALT 24 U/L (12-78) 02/17/21 23:00 Alkaline Phosphatase 127 U/L (45-117) H 02/17/21 23:00 Home Medications: Quetiapine [Seroquel*] 600 mg PO BEDTIME 02/24/13 Dextroamphetamine/Amphetamine [Dextroamp-Amphetamin 30 mg Tab] 30 mg PO BID 08/08/17 Fluoxetine HCl 40 mg PO DAILY 08/08/17 Rifaximin [Xifaxan] 550 mg PO BID 08/08/17 Quetiapine Fumarate [Seroquel] 50 mg PO DAILY 08/09/17 [place] Carbonate [Lithotabs *] 300 mg PO DAILY #30 tab 08/11/17 Albuterol Inhaler [Ventolin Inhaler*] 2 puff IH Q6H PRN #1 hfa.aer.ad 02/18/21 Fluticasone/Salmeterol [Advair 250-50 Diskus] 1 each IH BID #1 blst.w.dev 02/18/21 Pantoprazole [Protonix Tab] 40 mg PO DAILY #30 tab 02/18/21 predniSONE [Deltasone*] 10 mg PO BID #14 tab 02/18/21 New Medications: Fluticasone/Salmeterol [Advair 250-50 Diskus] 1 each IH BID #1 blst.w.dev predniSONE [Deltasone*] 10 mg PO BID #14 tab Pantoprazole [Protonix Tab] 40 mg PO DAILY #30 tab Albuterol Inhaler [Ventolin Inhaler*] 2 puff IH Q6H PRN #1 hfa.aer.ad PRN Reason: Shortness Of Breath Physician Discharge Instructions: Patient presented with chest pain. Cardiac enzymes unremarkable. Cardiology was consulted to further evaluate. Patient with underlying COPD. Some wheezing noted. Patient was given medication with improvement. Patient reports that she does not have any oxygen at home which she uses. Social work consulted to help reinitiate home oxygen to maintain sats above 93%. At discharge we will continue with prednisone 10 mg 1 pill twice daily for 7 days. Also recommended continue Advair one puffs twice daily and albuterol 2 puffs 3 times a day as needed for shortness of breath for her COPD. COPD education provided. Patient with diabetes mellitus type 2. Prior A1c 6.6. Continue with diabetic diet. Recommend to maintain blood sugar less than 140 fasting and less than 200 after meals. Patient with history of chronic hepatitis C with thrombocytopenia. This appears stable. At discharge she will continue with her medications including Xifaxan. Recommend follow-up with GI to further monitor. Patient with bipolar disorder/PTSD. She will continue with her medications at this time. Recommend to decrease and slowly wean off benzodiazepine. Recommend follow-up with psychiatry to further monitor and adjust her medication. Patient may have underlying GERD. Recommend to continue Protonix 40 mg daily. Recommend follow-up with GI to further adjust. Suspect underlying obstructive sleep apnea. Recommend follow-up with pulmonology as an outpatient to further evaluate. Patient would benefit with sleep study to further address. This can be done as an outpatient. Diet: AHA Activity: Ad rosa Followup: Unknown,U [Primary Care Provider] - Time spent managing pt's care (in minutes): 55
[2021-02-18 07:24] LABS: Barbiturates NEGATIVE (NEGATIVE); Benzodiazepines NEGATIVE (NEGATIVE); Cocaine NEGATIVE (NEGATIVE); METHAMPHETAM NEGATIVE (NEGATIVE); Methadone NEGATIVE (NEGATIVE); Opiates NEGATIVE (NEGATIVE); Phencyclidine NEGATIVE (NEGATIVE); THC Cannibis NEGATIVE (NEGATIVE)
--- NOTE | 2021-02-18 08:54 | RAD REPORT ---
EXAM DESCRIPTION: RAD - Chest Single View - 02/17/2021 11:23 pm CLINICAL HISTORY: CHEST PAIN Chest pain. COMPARISON: Chest Single View dated 11/16/2020; Chest Single View dated 10/27/2020; Chest Single View dated 09/03/2020; Chest Single View dated 03/31/2020 FINDINGS: Portable technique limits examination quality. Mild interstitial pulmonary edema. The heart is moderately enlarged in size. No displaced fractures. IMPRESSION: Mild CHF.
[2021-02-18] MEDS ORDERED: DULERA 100/5 (MOMETASONE/FORMOTEROL) INHALER IH SCH (09:00)
[2021-02-18] MEDS ORDERED: predniSONE 20 MG TAB PO SCH (09:00)
[2021-02-18] MEDS ORDERED: ASPIRIN EC 81 MG TAB PO SCH (09:00)
[2021-02-18 13:00] VITALS: O2SAT 86
--- NOTE | 2021-02-18 16:34 | EKG ---
Test Date: 2021-02-17 Test Time: 22:45:32 Loan Specialist: MG MEASUREMENT RESULTS: Intervals: Rate: 71 TX: 138 QRSD: 82 QT: 384 QTc: 417 [place]: P: 59 [place]: 138 QRS: 70 T: 53 INTERPRETIVE STATEMENTS: Normal sinus rhythm Normal ECG Compared to ECG 10/27/2020 10:32:14 No significant changes Electronically Signed On 02-18-21 16:32:56 CDT by Keith Aldana
[2021-02-18 17:19] VITALS: BP 128/61; TEMP 99.2
[2021-02-18] MEDS ORDERED: ATORVASTATIN 40 MG TAB PO SCH (21:00)
--- NOTE | 2021-02-20 13:20 | CON ---
Date of Consultation: 02/18/[address] Metcalf on 02/18/2021. I saw the patient on 02/18/2021. Reason For Consultation: Chest pain. History Of Present Illness: Ms. Norton is the patient who has had a history of ADD, ADHD, asthma, b ipolar disorder, breast cancer in remission, COPD, depression, diabetes, hepatitis, posttraumatic str ess disorder, chronic pain management, diverticulitis, came in with chest pain, cough, lower extremit y pain and lightheadedness. No nausea, vomiting, diaphoresis, PND, orthopnea, pedal edema, palpitati ons, or syncope. The patient's pain was not exertional. It did not radiate. Her troponin and EKG a re unremarkable. Past Medical History: As stated above. Allergies: NONE. Review of Systems: Negative. Social History: Negative. Family History: Noncontributory. Medications: At home include inhalers, lithium, Protonix, Seroquel, and Deltasone. Physical Examination: Vital Signs: Stable. She was afebrile, in sinus rhythm. HEENT: Negative. Neck: Supple. No bruit. Chest: Clear. Cardiac: Revealed a regular rhythm and rate. No murmurs, gallops, or rubs. Abdomen: Benign. Extremities: Revealed no clubbing, cyanosis, or edema. Diagnostic Data: She had a pO2 of 84 with a pCO2 of 62.4. Rest of her blood work was fairly unremar kable. Her BNP was 131. Impression And Plan: I think Ms. Norton is really having an episode of bronchitis and may be a pleu risy causing her pain. This is definitely noncardiac in nature. Her EKG is perfectly normal. Her t roponin is negative. Chest x-ray showed possible mild congestive heart failure, although I doubt maude t. I think Ms. Norton should be treated for bronchitis with inhalers, antibiotics and. Continue he r present medications at home. I am comfortable with her going home whenever it is okay with Dr. Ivet howe. I think it will be worth having her do an echocardiogram as an outpatient. She is not a good c andidate for Lexiscan because of her CO2 retention and chronic obstructive pulmonary disease and I ce rtainly do not feel that she needs heart catheterization at this point, but I would like to see her i n the office in the next 2 to 4 weeks. I will do an echocardiogram then and see how she is doing. JARROD/MILKA Voice ID: [id number] Report ID: [id number]
== END 2021-02-18 17:52 | disposition home or self-care (01) ==
LOC: ER 22:41 → 2ND 02-18 02:36
PROVIDERS: ADMIT Family Medicine; ATTEND Family Medicine
DX: R07.89 Other chest pain (principal); J44.1 Chronic obstructive pulmonary disease with (acute) exacerbation; Z99.81 Dependence on supplemental oxygen; E11.9 Type 2 diabetes mellitus without complications; D69.6 Thrombocytopenia, unspecified; F43.10 Post-traumatic stress disorder, unspecified; F31.9 Bipolar disorder, unspecified; K21.9 Gastro-esophageal reflux disease without esophagitis; K57.92 Diverticulitis of intestine, part unspecified, without perforation or abscess without bleeding; F90.9 Attention-deficit hyperactivity disorder, unspecified type; F17.210 Nicotine dependence, cigarettes, uncomplicated; Z71.6 Tobacco abuse counseling; Z86.19 Personal history of other infectious and parasitic diseases; Z85.3 Personal history of malignant neoplasm of breast; Z20.822 Contact with and (suspected) exposure to COVID-19
CPT/HCPCS: 93005; 85025 ×2; 80048; 36415; 83735 ×2; 85610; 80061; 80076; 80307 ×8; 84443; 81003; 84484 ×3; 84439; 80053; 83880; 71045; 82805; U0003; 99285; G0378; J7512; J7606

== ENCOUNTER 2021-03-22 20:19 | Emergency (ER) | payer OTHER ==
--- OUTSIDE RECORDS SUMMARY | 2021-03-22 20:26 | XMS REPORT | Continuity of Care Document ---
:1965 Author Organization [facility] t Address [facility] Baker [address] [place] [address] Care Team Providers Name Role Phone JANEEN [...] Source Number Date Date MEDICAREMEDICARE PART A [id number] 2005 MD Hawley AND 00:00:00 [id number] 2004-Pr [id number] , [place] [id number] 2018 MD Juan Antonio melendez TRADITIONALMEDICAID [place] 00:00:00 TRADITIONAL STAR PLUS [id number] esentMedicaid MEDICAREMEDICARE A [id number] 2005 NELL Kwan [id number]/2004-Pr 00:00:00 - [facility] [place] MEDICAIDMEDICAID [id number] [address] [facility] [id number] 2016 00:00:00 - [facility] MEDICAIDMEDICAID [id number] 2015 [facility] chava Kwan [id number] 2014-P 00:00:00 [facility] [place] Problems Condition Condition Condition Status Onset Resolution [...] January 2019. 528 9 08:25HepC RNA PCR nt-[place] Undetecte d IU/mL (Undetec jassi) Witnessed Witnessed [...] on on 00:00: Medical 00 9:[facility] ly. There are findings suggestiv e of [...] carcinoma 2-05 [place] [facility] [place] 00:00: n portion of portion of 00 left left female female breast breast Estrogen Estrogen Disease Active 2016-11 receptor receptor 2-05 Shahab o positive positive 00:00: n status status 00 (ER+) (ER+) Estrogen Estrogen Disease Active 2016-11 [facility] receptor receptor 2-05 [facility] - positive positive 00:00: Medica l status status 00 [place] (ER+) (ER+) Malignant Malignant Disease Active 2016-[address] [facility] [address] neoplasm neoplasm 2-05 [facility] 00:00: Me dical portion of portion of [...] Comments Source Sex Assigned At [facility] Tobacco use and 2020-04-01 2020-04-[address] Ramires kes - exposure 00:00:00 00:00:00 [facility] Alcohol intake 2020-04-01 2020-04-01 Current NELL Soaresk [...] Source Current every day smoker 2020-04-01 00:00:00 [facility] Medications Ordered Filled Start Stop [...] Roxy 8-06 Millender directed [facility] [place] 00:00: Memoria 00 l Outpati ent Clinics Levemir Levemir Yes Lea as [facility] FlexTouch FlexTouch 8-06 Millender directed [facility] - 00:00: [facility] 00 l [facility] [place] Yes Lea as [facility] 8-06 Millender directed [facility] - 00:00: [facility]oria 00 l [facility] Clinics anastrozole 0 2020- No [...] 12:19: 00:00 daily. Medic al 24 :00 [place] dextroamphe 2020- No dextroamph [facility] tamine-amph [...] Center daily. pregabalin 2019-0 2020- No 50mg [id number] Take [address] (LYRICA) 50 5-25 05-25 [id number] by mouth 3 [facility] - MG capsule [...] 00:00: 00:00 tablet Medical tablet 00 :00 [place] nystatin Yes Schizophren Apply M D (MYCOSTATIN [...] 00:00 300 mg Medical 00 :00 capsule [place] Paxil Paxil Yes Lea [address] Millender in the [facility] - morning [facility] Clinics Adderall Adderall Yes Lea [address] [facility] Risperdal Risperdal Yes Lea [address] [facility] [place] Yes Lea (450 mg) 1 CH I [...] Center Diastolic blood 2020-04-16 06:55:00 75 mm[Hg] [facility] Heart rate 2020-04-16 06:55:00 104 /min [facility] Body temperature 2020-04-16 06:55:00 36.39 Mansi [facility] Respiratory rate 2020-04-16 06:55:00 16 /min [facility] Oxygen saturation in 2020-04-16 06:55:00 93 /min [facility] Arterial blood by Medical Ce nter Pulse oximetry Body weight 2020-04-04 10:17:00 91.899 kg [facility] BMI 2020-04-04 10:17:00 35.45 kg/m2 [facility] Body height 2020-04-01 13:00:00 161 cm [facility] Procedures Procedure Date / Time Performing Clinician Source Performed RHYTHM STRIP - SCAN 2020-04-17 15:11:17 Provider, [facility] POCT-GLUCOSE METER 2020-04-15 22:05:00 Yareli Arturo [facility] POCT-GLUCOSE METER 2020-04-15 12:44:00 Yareli Arturo [facility] POCT-GLUCOSE METER 2020-04-15 08:15:00 Arturo Downs [facility] POCT-GLUCOSE METER 2020-04-14 21:19:00 LanierSamantha [facility] POCT-GLUCOSE METER 2020-04-13 17:03:00 Lanier, Samantha Haskins [facility] POCT-GLUCOSE METER 2020-04-13 11:55:00 Lanier, Samantha Haskins [facility] POCT-GLUCOSE METER 2020-04-13 08:22:00 Lanier, Samantha Haskins [facility] POCT-GLUCOSE METER 2020-04-12 20:48:00 [facility]ier, [facility] POCT-GLUCOSE METER 2020-04-12 17:18:00 Lanier, Samantha [facility] POCT-GLUCOSE METER 2020-04-12 12:10:00 Lanier, Samantha [facility] POCT-GLUCOSE METER 2020-04-12 08:32:00 Lanier, [facility] LITHIUM LEVEL 2020-04-12 04:26:00 [facility]anna [facility] POCT-GLUCOSE METER 2020-04-11 21:49:00 Lanier, Samantha [facility] POCT-GLUCOSE METER 2020-04-11 16:42:00 Lanier, Samantha [facility] POCT-GLUCOSE METER 2020-04-11 10:52:00 Lanier, Samantha [facility] POCT-GLUCOSE METER 2020-04-11 06:55:00 Lanier, Samantha [facility] POCT-GLUCOSE METER 2020-04-10 20:46:00 [facility] POCT-GLUCOSE METER 2020-04-10 17:42:00 Lanier, Samantha [facility] POCT-GLUCOSE METER 2020-04-10 11:07:00 Lanier, [facility] POCT-GLUCOSE METER 2020-04-10 07:12:00 Lanier, [facility] CBC W/PLT COUNT & AUTO 2020-04-10 03:58:00 Lanier, [facility] BASIC METABOLIC PANEL (7) 2020-04-10 03:58:00 Lanier, [facility] POCT-GLUCOSE METER 2020-04-09 21:30:00 Lanier, [facility] POCT-GLUCOSE METER 2020-04-09 17:05:00 Lanier, [facility] POCT-GLUCOSE METER 2020-04-09 07:13:00 Lanier, Samantha Haskins [facility] LITHIUM LEVEL 2020-04-09 04:06:00 Lanier, Samantha Haskins [facility] POCT-GLUCOSE METER 2020-04-08 21:22:00 Lanier, Samantha Haskins [facility] POCT-GLUCOSE METER 2020-04-08 18:08:00 Lanier, Samantha Haskins [facility] POCT-GLUCOSE METER 2020-04-08 12:36:00 Lanier, Samantha Haskins [facility] CBC W/PLT COUNT & AUTO 2020-04-08 03:42:00 [facility] METABOLIC 2020-04-08 03:42:[address] [facility] POCT-GLUCOSE METER 2020-04-07 21:08:00 [facility] POCT-GLUCOSE METER 2020-04-07 17:20:00 [facility] POCT-GLUCOSE METER 2020-04-07 12:02:00 [facility] POCT-GLUCOSE METER 2020-04-07 07:55:00 [facility] CBC W/PLT COUNT & AUTO 2020-04-07 04:24:00 [facility] COMPREHENSIVE METABOLIC 2020-04-07 04:24:00 [facility] POCT-GLUCOSE METER 2020-04-06 21:01:[address] [facility] [address] CHEST PE TEST DESIGN 2020-04-06 16:30:00 [facility] APTT 2020-04-06 13:47:00 [facility] POCT-GLUCOSE METER 2020-04-06 11:56:00 [facility] RESPIRATORY PANEL [facility] 2020-04-06 09:15:00 Micheal [facility] POCT-GLUCOSE METER 2020-04-06 07:41:00 Micheal [facility] COMPREHENSIVE METABOLIC 2020-04-06 03:34:[address] [facility] CBC W/PLT COUNT & AUTO 2020-04-06 03:34:00 Micheal [facility] APTT 2020-04-06 03:34:[address] [facility] POCT-GLUCOSE METER 2020-04-05 23:20:00 [facility] URINE CULTURE 2020-04-05 19:02:00 Micheal [facility] URINALYSIS W/ REFLEX URINE 2020-04-05 19:02:00 Micheal [facility] D-DIMER 2020-04-05 18:48:00 [facility] BASIC METABOLIC PANEL (7) 2020-04-05 18:48:00 Melody Burton [facility] MAGNESIUM 2020-04-05 18:48:00 Micheal Melody [facility] PHOSPHORUS 2020-04-05 18:48:00 Micheal [facility] CBC W/PLT COUNT & AUTO 2020-04-05 18:48:00 Micheal [facility] SARS-COV2/RT-PCR ([facility] & 2020-04-05 17:02:00 Melody Burton [facility] I [facility] - REF LABS) [facility] POCT-GLUCOSE METER 2020-04-05 16:51:00 Micheal [facility] XR CHEST 1 VIEW 2020-04-05 16:46:00 Melody Burton [facility] - PORTABLE/BEDSIDE [facility] LACTIC ACID, VENOUS 2020-04-05 16:24:00 [facility] ECG 12-LEAD 2020-04-05 16:08:18 [facility] ECG 12-LEAD 2020-04-05 13:27:01 [facility] POCT-GLUCOSE METER 2020-04-05 11:22:00 [facility] POCT-GLUCOSE METER 2020-04-05 08:11:00 [facility] POCT-GLUCOSE METER 2020-04-04 20:58:00 [facility] POCT-GLUCOSE METER 2020-04-04 17:52:00 [facility] HEPATIC FUNCTION PANEL 2020-04-04 15:21:00 [facility] CBC W/PLT COUNT & AUTO 2020-04-04 15:20:00 [facility] REPORT OF PROCEDURE - 2020-04-04 13:41:29 Provider, [facility] ENDOSCOPY SCAN Scanning [facility] POCT-GLUCOSE METER 2020-04-04 11:41:00 [facility] POCT-GLUCOSE METER 2020-04-04 08:55:00 [facility] BASIC METABOLIC PANEL (7) 2020-04-04 05:30:00 Chantell Larson CH, I [facility] CBC W/PLT COUNT & AUTO 2020-04-04 05:30:00 Kirit De La Cruz [facility] MAGNESIUM 2020-04-04 05:30:00 [facility] PHOSPHORUS 2020-04-04 05:30:00 [facility] POCT-GLUCOSE METER 2020-04-03 21:53:00 [facility] POCT-GLUCOSE METER 2020-04-03 17:49:00 [facility] POCT-GLUCOSE METER 2020-04-03 11:26:00 [facility] POCT-GLUCOSE METER 2020-04-03 07:24:00 [facility] US ABDOMEN LIMITED 2020-04-03 05:45:00 [facility] HEPATIC FUNCTION PANEL 2020-04-03 03:34:00 [facility] BASIC METABOLIC PANEL (7) 2020-04-03 03:34:00 Chantell Larson CH I [facility] CBC W/PLT COUNT & AUTO 2020-04-03 03:34:00 Denisse [facility] MAGNESIUM 2020-04-03 03:34:00 [facility] PHOSPHORUS 2020-04-03 03:34:00 [facility] HEMOGLOBIN A1C 2020-04-03 03:34:00 [facility] POCT-GLUCOSE METER 2020-04-02 21:09:00 [facility] MR BRAIN WITHOUT IV 2020-04-02 20:22:[address] [facility] POCT-GLUCOSE METER 2020-04-02 17:17:00 [facility] RAPID DRUG SCREEN, URINE 2020-04-02 13:14:00 Lorene Mcclure [facility] DRUG SCREEN, URINE, 2020-04-02 13:12:00 Lorene Mcclure [facility] AMMONIA 2020-04-02 12:22:[address] [facility] BLOOD CULTURE 2020-04-02 12:08:[address] [facility] POCT-GLUCOSE METER 2020-04-02 11:00:00 [facility] POCT-GLUCOSE METER 2020-04-02 08:33:00 Micheal Melody [facility] EEG 12-26 HR CONTINUOUS 2020-04-02 06:32:00 Forrest [facility] - MONITORING WITH VIDEO Medical Ce nter BASIC METABOLIC PANEL (7) 2020-04-02 04:43:00 Chantell Larson [facility] CBC W/PLT COUNT & AUTO 2020-04-02 04:43:00 Denisse [facility] POCT-GLUCOSE METER 2020-04-02 01:53:00 [facility] PO[facility]SE METER 2020-04-01 20:44:00 [facility] HEPATIC FUNCTION PANEL 2020-04-01 18:46:00 [facility] PO[facility]UCOSE METER 2020-04-01 17:57:00 [facility]FREE T4 IF INDICATED 2020-04-01 14:13:00 [facility] VITAMIN B12 AND FOLATE 2020-04-01 14:13:00 [facility] LITHIUM LEVEL 2020-04-01 14:13:00 [facility] T4, FREE 2020-04-01 14:13:00 [facility] BLOOD CULTURE 2020-04-01 14:11:00 [facility] POCT-GLUCOSE METER 2020-04-01 12:22:00 [facility] ECG 12-LEAD 2020-04-01 08:31:07 Neo [facility] SARS-COV2/RT-PCR ([facility] & 2020-04-01 05:24:00 Forrest, [facility] - REF LABS) [facility] CBC W/PLT COUNT & AUTO 2020-04-01 05:08:00 Forrest Arif [facility] BASIC METABOLIC PANEL (7) 2020-04-01 05:08:00 Forrest, [facility] MAGNESIUM 2020-04-01 05:08:00 Forrest, [facility] CREATINE KINASE (CK) 2020-04-01 05:08:00 Forrest, [facility] PHOSPHORUS 2020-04-01 05:08:00 Forrest, [facility] PT/APTT 2020-04-01 05:08:00 Forrest, [facility] TROPONIN I 2020-04-01 05:08:00 Chantell Larson [facility] URINALYSIS W/ REFLEX URINE 2020-04-01 05:04:00 Forrest, [facility] C [facility] XR CHEST 1 VIEW 2020-04-01 04:58:00 Forrest, [facility]/BEDSIDE Medical Center CRITICAL CARE 2020-04-01 04:51:54 Forrest, [facility] ED ECG INTERPRETATION 2020-04-01 04:51:54 Forrest, [facility] Plan of Care Planned Activity Planned Date Details Comments Source Future Scheduled 2020-04-[address] [facility] 00:[facility]00 [facility] ([facility]) [code = 299795517] Future Scheduled 2014 SHINGLES VACCINES ([address] [facility] - Test 00:00:00 of 2) [code = SHINGLES Medic wv Center VACCINES (1 of 2)] Future Scheduled [address] [facility] - Test 00:00:00 (procedure) [code = Medical Center 12052900] Future Scheduled 2006-10-[address] [facility] - Test 00:00:00 WELLNESS (YEAR 2 or Medical Center FIRST YEAR if no IPPE) [code = MEDICARE ANNUAL WELLNESS (YEAR 2 or FIRST YEAR if no IPPE)] Future Scheduled [address] [facility] - Test 00:00:00 [facility] cervix (procedure) [code = 636637731] Future Scheduled 1983 DTAP/TDAP/TD VACCINES CH I [...] Medica l Center colon (procedure) [code = 996930664] Encounters Start End Encounter Admission Attending Care Care Encounter Source Date/Time Date/Time Type Type Clinicians Facility Department ID 2020-08-20 2020-08-20 [facility] [id number] 2020-08-18 2020-08-18 [facility] [id number] 2020-08-16 2020-08-16 [facility] [id number] [facility] 2020-08-07 2020-08-07 [facility] [id number] [facility] 2020-07-09 2020-07-09 Out[facility] [id number] [facility] 2020-06-13 2020-06-13 [facility] [id number] 11:00:00 11:00:00 [facility] Family Medicine Medicine Outpati ent Clinics 2020-05-24 2020-05-24 Outpatient AWILDA VERNON MDA MDA [id number] 00:00:00 00:00:00 NEDA melendez 2020-05-23 2020-05-23 Outpatient AWILDA VERNON MDA MDA [id number] 00:00:00 00:00:00 NEDA melendez 2020-05-13 2020-05-13 Outpatient AWILDA SULLIVAN [facility] MDA [id number] 00:00:00 00:00:00 FAUSTINO melendez 2020-05-07 2020-05-07 Outpatient AWILDA VERNON [facility] MDA [id number] 00:00:00 00:00:00 NEDA arshad n 2020-05-07 2020-05-07 Outpatient AWILDA VERNON [facility] MDA [id number] 00:00:00 00:00:00 NEDA arshad n 2020-04-30 2020-04-30 Outpatient AWILDA POLANCO MDA MDA [id number] 09:15:00 23:59:00 LAMBERTO arshad n 2019-10-18 2019-10-18 [facility] [id number] 08:20:00 08:20:00 [facility] 2019-10-10 2019-10-10 [facility] [id number] 16:00:00 16:00:00 [facility] ent [facility] Results Test Description Test Time Test Comments Results Result Comments Source POC-Glucose meter 2020-04-15 22:17:00 Test Item Value Reference Range Interpretation Comme nts POC-Glucose Meter (test code = 124 mg/dL 70-110 H : TESTED AT [facility] [address] [place] [address], [address]: [employer]/Techni janel ID = [id number] for RAY ERVIN Lab Interpretation (test code = Abnormal 63933-1) [facility] [id number] 22:17:00 Test Item Value Reference Range Interpretation Comments POC-GLUCOSE METER 124 mg/dL 70-110 H : [facility] T [facility] [facility] (test code = [facility], 1538) [address]: [employer]/Techni janel ID = [id number] for RAY MCCLELLAN POCT-GLUCOSE [id number] 12:55:00 Test Item Value Reference Range Interpretation Comments POC-GLUCOSE METER 189 mg/dL 70-110 H : TESTED A T [facility] ([facility]) (test code = [facility], 1538) [address]: [employer]/Techni janel ID = [id number] for HI DALGO, AGLAE POCT-GLUCOSE [id number] 08:26:00 Test Item Value Reference Range Interpretation Comments POC-GLUCOSE METER 123 mg/dL 70-110 H : TESTED A T [facility] ([facility]) (test code = [facility], 153) [address]: [employer]/Techni janel ID = [id number] for JOE BINGHAM POCT-GLUCOSE [id number] 21:31:00 Test Item Value Reference Range Interpretation Comments POC-GLUCOSE METER 176 mg/dL 70-110 H : Notified RN/MD: ([facility]) (test code = [facility] 153) [facility], [address]: [employer]/Techni janel ID = [id number] for JOSH LANDONN ICE [place] [id number] 11:45:00 Test Item Value Reference Range Interpretation Comments [place] Level (test code = 0.6 mmol/L 0.8-1.2 L 25919-0) Lab Interpretation (test code = Abnormal 69735-0) [facility] [id number] 11:45:00 Test Item Value Reference Range Interpretation Comments LITHIUM LEVEL ([facility]) (test code 0.6 mmol/L 0.8-1.2 L = 630) POCT-GLUCOSE [id number] 17:15:00 Test Item Value Reference Range Interpretation Comments POC-GLUCOSE METER 128 mg/dL 70-110 H : TESTED A T [facility] [address] ([facility]) (test code = [facility], 153) [address]: [employer]/Techni janel ID = [id number] for HI DALGO, AGLAE POCT-GLUCOSE [id number] 12:20:00 Test Item Value Reference Range Interpretation Comments POC-GLUCOSE METER 108 mg/dL 70-110 : TESTED A T [facility] [address] ([facility]) (test code = [facility], 153) [address]: [employer]/Techni janel ID = [id number] for Sm ith, Elaina POCT-GLUCOSE [id number] 08:34:00 Test Item Value Reference Range Interpretation Comments POC-GLUCOSE METER 115 mg/dL 70-110 H : [facility]ED A T [facility] [facility] (test code = [facility], 1538) [address]: [employer]/Techni janel ID = [id number] for Sm calli, Elaina POCT-GLUCOSE [id number] 20:59:00 Test Item Value Reference Range Interpretation Comments POC-GLUCOSE METER 152 mg/dL 70-110 H : TESTED A T [facility] 6720 ([facility]) (test code = [facility], 1538) [address]: [employer]/Techni janel ID = [id number] for BA EMBER DENG POCT-GLUCOSE [id number] 17:29:00 Test Item Value Reference Range Interpretation Comments POC-GLUCOSE METER 103 mg/dL 70-110 : TESTED A T [facility] 6720 ([facility]) (test code [facility], = 1538) [address]: [employer]/Techni janel ID = [id number] for TSEG GAI, TSIGHEREDA POCT-GLUCOSE [id number] 12:22:00 Test Item Value Reference Range Interpretation Comments POC-GLUCOSE METER 204 mg/dL 70-110 H : Notified RN/MD: TESTED ([facility]) ([facility] [address] [place] [address] = 1538) [facility], 770 30: [employer]/Techni janel ID = [id number] for TSEG GAI, TSIGHEREDA POCT-GLUCOSE [id number] 08:43:00 Test Item Value Reference Range Interpretation Comments POC-GLUCOSE METER 132 mg/dL 70-110 H : TESTED A T [facility] 6720 ([facility]) (test code [facility], = 1538) [address]: [employer]/Techni janel ID = [id number] for TSEG GAI, TSIGHEREDA POCT-GLUCOSE [id number] 07:13:00 Test Item Value Reference Range Interpretation Comments POC-GLUCOSE METER 200 mg/dL 70-110 H : TESTED A T [facility] 6720 ([facility]) (test code = [facility], 1538) [address]: [employer]/Techni janel ID = [id number] for OC FELICIA, KULDIP POCT-GLUCOSE [id number] 16:54:00 Test Item Value Reference Range Interpretation Comments POC-GLUCOSE METER 103 mg/dL 70-110 : TESTED A T [facility] 6720 (BEAKER) (test code = [facility], 1538) [address]: [employer]/Techni janel ID = [id number] for HU NT, KATIE POCT-GLUCOSE [id number] 11:03:00 Test Item Value Reference Range Interpretation Comments POC-GLUCOSE METER 155 mg/dL 70-110 H : TESTED A T [facility] 6720 (BEAKER) (test code = [facility], [facility]8) [address]: [employer]/Techni janel ID = [id number] for HU NT, KATIE POCT-GLUCOSE [id number] 07:06:00 Test Item Value Reference Range Interpretation Comments POC-GLUCOSE METER 129 mg/dL 70-110 H : TESTED A T [facility] 6720 (BEAKER) (test code = [facility], [facility]) [address]: [employer]/Techni janel ID = [id number] for HU NT, KATIE POCT-GLUCOSE [id number] 20:59:00 Test Item Value Reference Range Interpretation Comments POC-GLUCOSE METER 167 mg/dL 70-110 H : TESTED A T [facility] 6720 (BEAKER) (test code = [facility], 1538) 30[address]: [employer]/Techni janel ID = [id number] for ALISSA VALENCIA, SAUDATU POCT-GLUCOSE [id number] 17:53:00 Test Item Value Reference Range Interpretation Comments POC-GLUCOSE METER 185 mg/dL 70-110 H : TESTED A T [facility] 6720 (BEAKER) (test code = [facility], [facility]) [address]: [employer]/Techni janel ID = [id number] for Ma thew, Remyia POCT-GLUCOSE [id number] 11:18:00 Test Item Value Reference Range Interpretation Comments POC-GLUCOSE METER 145 mg/dL 70-110 H : TESTED A T [facility] 6720 (BEAKER) (test code = [facility], 1538) 875[address]: [employer]/Techni janel ID = [id number] for Ma thew, Remyia POCT-GLUCOSE [id number] 07:23:00 Test Item Value Reference Range Interpretation Comments POC-GLUCOSE METER 105 mg/dL 70-110 : TESTED A T [facility] 6720 (BEAKER) (test code = [place], 1538) [address]: [employer]/Techni janel ID = [id number] for Caleb Barcenas Basic Metabolic [id number] 04:32:00 Test Item Value Reference Range Interpretation Comments Sodium (test code = 143 meq/L 164-826 6506-2) Potassium (test code = 4.0 meq/L 3.5-5.1 2823-3) Chloride (test code = 111 meq/L 98-107 H 2075-0) CO2 (test code = 25 meq/L 22-29 2028-9) BUN (test code = 11 mg/dL 7-21 3094-0) Creatinine (test code 0.76 mg/dL 0.57-1.25 = 2160-0) Glucose (test code = 106 mg/dL 70-105 H 2345-7) Calcium (test code = 9.6 mg/dL 8.4-10.2 00630-1) EGFR (test code = 79 mL/min/1.73 [place] [address]-6) NOT ACCURATE CREATININE CLEARANCE IN PREDICTING GLOMERULAR FILTRATION RATE . ESTIMATED GFR I S NOT APPLICABLE FOR DIALYSIS PATIENTS. VIKKI (test code = VIKKI) [employer] ID - ZAHRA [place] Lab Interpretation Abnormal (test code = 55969-6) [facility] METABOLIC [id number] 04:32:00 Test Item Value Reference Range Interpretation [...] S NOT APPLICABLE FOR DIALYSIS PATIEN TS. [employer] ID - ZAHRA MCBC with platelet count + automated [id number] 04:10:00 Test Item Value Reference Range Interpretation Comments WBC (test code = 6690-2) 4.6 See_Comment [A utomated message] The system COCC generated this result transmitted ref erence range: 3.5 - 10 .5 K/L. The refe rence range was not u sed to interpret this result as normal/abnor mal. RBC (test code = 789-8) 4.19 See_Comment [Au tomated message] The system COCC generated this result transmitted ref erence range: 3.93 - 5 .22 M/L. The refe rence range was not u sed to interpret this result as normal/abnor mal. MCHC (test code = 786-4) 31.9 See_Comment L [A utomated message] The system COCC generated this result transmitted ref erence range: [...] L [Aut omated message] 777-3) The system COCC generated this result transmitted ref erence range: 150 - 45 0 K/CU MM. The referen ce range was not u sed to interpret this result as normal/abnor mal. MPV (test code = 12.3 fL 9.4-12.3 99721-2) nRBC (test code = 413) 0 See_Comment [Aut omated message] The system COCC generated this result transmitted ref erence range: [...] See_Comment [Aut omated message] 670) The system COCC generated this result transmitted ref erence range: 1.56 - 6 .13 K/L. The refe rence range was not u sed to interpret this result as normal/abnor mal. # Lymphs (test code = 1.69 See_Comment [Auto mated message] 414) The system COCC generated this result transmitted ref erence range: 1.18 - 3 .74 K/L. The refe rence range was not u sed to interpret this result as normal/abnor mal. # Monos (test code = 0.50 See_Comment H [Autom ated message] 415) The system COCC generated this result transmitted ref erence range: 0.24 - 0 .36 K/L. The refe rence range was not u sed to interpret this result as normal/abnor mal. # Eos (test code = 416) 0.13 See_Comment [Au tomated message] The system COCC generated this result transmitted ref erence range: 0.04 - 0 .36 K/L. The refe rence range was not u sed to interpret this result as normal/abnor mal. # Baso (test code = 417) 0.02 See_Comment [A utomated message] The system COCC generated this result transmitted ref erence range: 0.01 - 0 .08 K/L. The refe rence range was not u sed to interpret this result as normal/abnor mal. Immature 0 % 0-1 Granulocytes-Relative (test code = 2801) Lab Interpretation (test Abnormal code = 30587-7) [facility] W/PLT COUNT & AUTO [id number] 04:10:00 Test Item Value Reference Range Interpretation [...] PERCENT (BEAKER) (test code = 2801) POCT-GLUCOSE [id number] 21:41:00 Test Item Value Reference Range Interpretation Comments POC-GLUCOSE METER 130 mg/dL 70-110 H : TESTED A T [facility] 6720 (BEAKER) (test code = [facility], 153) 85204: [employer]/Techni janel ID = [id number] for SA NTOS, UYEN POCT-GLUCOSE [id number] 17:17:00 Test Item Value Reference Range Interpretation Comments POC-GLUCOSE METER 107 mg/dL 70-110 : TESTED A T [facility] 6720 (BEAKER) (test code = [facility], 153) 37422: [employer]/Techni janel ID = [id number] for CA STRO, JONAH LITHIUM [id number] 13:12:00 Test Item Value Reference Range Interpretation Comments LITHIUM LEVEL (BEAKER) (test code 0.5 mmol/L 0.8-1.2 L = 630) POCT-GLUCOSE [id number] 07:24:00 Test Item Value Reference Range Interpretation Comments POC-GLUCOSE METER 124 mg/dL 70-110 H : TESTED A T [facility] 6720 (BEAKER) (test code = [facility], [facility]) 78747: [employer]/Techni janel ID = [id number] for CA STRO, JONAH POCT-GLUCOSE [id number] 21:34:00 Test Item Value Reference Range Interpretation Comments POC-GLUCOSE METER 174 mg/dL 70-110 H : TESTED A T [facility] 6720 (BEAKER) (test code = [facility], [facility]) 85699: [employer]/Techni janel ID = [id number] for DE NNIS, BING POCT-GLUCOSE [id number] 18:20:00 Test Item Value Reference Range Interpretation Comments POC-GLUCOSE METER 125 mg/dL 70-110 H : TESTED A T [facility] 6720 (BEAKER) (test code = [facility], 1538) 32977: [employer]/Techni janel ID = [id number] for HI DALGO, AGLAE POCT-GLUCOSE [id number] 12:47:00 Test Item Value Reference Range Interpretation Comments POC-GLUCOSE METER 100 mg/dL 70-110 : TESTED A T [facility] 6720 (BEAKER) (test code = [facility], 1538) 27587: [employer]/Techni janel ID = [id number] for LUCAS LOWE Comprehensive metabolic [id number] 04:30:00 Test Item Value Reference Range Interpretation Comments Protein, Total (test 7.5 See_Comment [Autom ated code = 2885-2) message] The system which generated this result transmit jassi reference range : 6.0 - 8.3 gm/dL . The reference range was not u sed to interpret th is result as normal/abnormal . Albumin (test code = 3.7 g/dL 3.5-5 26919-4) Alkaline Phosphatase 94 U/L 40-150 (test code = 6768-6) Total Bilirubin (test 0.9 mg/dL 0.2-1.2 code = 1974-2) Sodium (test code = 141 meq/L 748-886 8870-2) Potassium (test code 4.0 meq/L 3.5-5.1 = 2823-3) Chloride (test code = 110 meq/L 98-107 H 2075-0) CO2 (test code = 23 meq/L 22-29 2028-9) BUN (test code = 10 mg/dL 7-21 3094-0) Creatinine (test code 0.72 mg/dL 0.57-1.25 = 2160-0) Glucose (test code = 123 mg/dL 70-105 H 2345-7) Calcium (test code = 9.6 mg/dL 8.4-10.2 82862-3) AST (test code = 28 U/L 5-34 1920-8) ALT (test code = 39 U/L 6-55 1742-6) EGFR (test code = 84 mL/min/1.73 [place] [address]-8) NOT ACCURATE CREATININE CLEARANCE IN PREDICTING GLOMERULAR FILTRATION RATE . ESTIMATED GFR I S NOT APPLICABLE FOR DIALYSIS PATIEN TS. VIKKI (test code = VIKKI) [employer] ID - PIAYA L Lab Interpretation Abnormal (test code = 72739-9) [facility] [id number] 04:30:00 Test Item Value Reference Range Interpretation [...] S NOT APPLICABLE FOR DIALYSIS PATIEN TS. [employer] ID - PIAYA LCBC W/PLT COUNT & AUTO [id number] 03:57:00 Test Item Value Reference Range Interpretation [...] PERCENT (BEAKER) (test code = 2801) POCT-GLUCOSE [id number] 21:19:00 Test Item Value Reference Range Interpretation Comments POC-GLUCOSE METER 111 mg/dL 70-110 H : TESTED A T [facility] 6720 (BEAKER) (test code = [place], 1538) 57[address]: [employer]/Techni janel ID = [id number] for Neda Pineda POCT-GLUCOSE [id number] 17:31:00 Test Item Value Reference Range Interpretation Comments POC-GLUCOSE METER 106 mg/dL 70-110 : TESTED A T [facility] 6720 (BEAKER) (test code = [facility], 1538) 43742: [employer]/Techni janel ID = [id number] for Caleb Barcenas Blood [id number] 14:00:00 Test Item Value Reference Range Interpretation Comments Result (test code = No growth in 5 days 6463-4) [facility] [id number] 14:00:00 Test Item Value Reference Range Interpretation Comments CULTURE (BEAKER) (test No growth in 5 days code = 1095) POCT-GLUCOSE [id number] 12:14:00 Test Item Value Reference Range Interpretation Comments POC-GLUCOSE METER 113 mg/dL 70-110 H : TESTED A T [facility] 6720 (BEAKER) (test code = [facility], 1538) 88272: [employer]/Techni janel ID = [id number] for Caleb Barcenas POCT-GLUCOSE [id number] 08:06:00 Test Item Value Reference Range Interpretation Comments POC-GLUCOSE METER 133 mg/dL 70-110 H : TESTED A T [facility] 6720 (BEAKER) (test code = [facility], 1538) 74417: [employer]/Techni janel ID = [id number] for Caleb Barcenas COMPREHENSIVE METABOLIC [id number] 05:57:00 Test Item Value Reference Range Interpretation [...] S NOT APPLICABLE FOR DIALYSIS PATIEN TS. [employer] ID - PIAYA LCBC W/PLT COUNT & AUTO [id number] 05:15:00 Test Item Value Reference Range Interpretation [...] PERCENT (BEAKER) (test code = 2801) POCT-GLUCOSE [id number] 21:12:00 Test Item Value Reference Range Interpretation Comments POC-GLUCOSE METER 197 mg/dL 70-110 H : TESTED A T [facility] 6720 (BEAKER) (test code = [facility], 1538) 11546: [employer]/Techni janel ID = [id number] for ANNEMARIE MAYCOLATA SUMMER BLOOD [id number] 20:00:00 Test Item Value Reference Range Interpretation Comments CULTURE (BEAKER) (test No growth in 5 days code = 1095) Respiratory Panel [id number] 19:01:00 Test Item Value Reference Range Interpretation Comments Human Metapneumovirus Not detected Not detected, (test code = 95847-0) Equivocal Rhinovirus (test code = Not detected Not detected, 21427-7) Equivocal INFLUENZA A (NO Not detected Not detected, SUBTYPE) (test code = Equivocal 33489-2) Influenza A subtype H1 (test code = 98679-3) Influenza A Subtype H3 (test code = 10025-5) Influenza A Subtype H1-2009 (test code = 69849-9) Influenza B (test code Not detected Not detected, = 14822-5) Equivocal Respiratory Syncytial Not detected Not detected, Virus (test code = Equivocal 61171-3) Parainfluenza Virus 1 Not detected Not detected, (test code = 32474-5) Equivocal Parainfluenza Virus 2 Not detected Not detected, (test code = 43120-2) Equivocal Parainfluenza virus 3 Not detected Not detected, (test code = 40559-5) Equivocal Parainfluenza Virus 4 Not detected Not detected, (test code = 36764-5) Equivocal Adenovirus (test code = Not detected Not detected, 16456-7) Equivocal Coronavirus 229E (test Not detected Not detected, code = 99615-8) Equivocal Coronavirus HKU1 (test Not detected Not detected, code = 36548-7) Equivocal Coronavirus NL63 (test Not detected Not detected, code = 65933-7) Equivocal Coronavirus OC43 (test Not detected Not detected, code = 26049-3) Equivocal Bordetella Pertussis Not detected Not detected, (test code = 72398-5) Equivocal Chlamydophila Not detected Not detected, Pneumoniae (test code = Equivocal 98947-0) Mycoplasma Pneumoniae Not detected Not detected, (test code = 91785-8) Equivocal VIKKI (test code = VIKKI) Other viruses and bacteria not targeted by this PCR panel cannot be excluded; therefore clinical correlation and follow up of serology, culture results, and other molecular studies is required. The results are not intended to be used as the sole means for clinical diagnosis or patient management decisions. This sample was tested at the [facility] Molecular Diagnostics Laboratory using the XianguoArray Respiratory Panel. It is FDA cleared and has been verified and approved by the [facility] Molecular Diagnostics Laboratory for clinical use on nasopharyngeal swab specimens. The performance of the FilmArray RP has not been established in individuals who received influenza vaccine. Recent administration of a nasal influenza vaccine may cause false positive results for Influenza A and/orInfluenza B. [facility] [id number] 19:01:00 Test Item Value Reference Range Interpretation [...] sample was tested at the [facility] Molecular Diagnostics Laboratory using the XianguoArray Respiratory Panel. It is FDA cleared and has been verified and approved by the [facility] Molecular Diagnostics Laboratory for clinical [...] MDReport Verified Date/Time: 04/06/2020 16:45:26 Reading Location: [address] Transitional Reading Room CT chest for [...] [place] Verified Date/Time: 04/06/2020 16:45:26 Reading Location: [address] Transitional Reading [facility] 14:25:00 Test Item Value Reference Range Interpretation Comments PTT (test code = 31.0 See_Comment [Automated 46097-4) message] The system which generated this result transmitted reference range : 22.5 - 36.0 seconds. The reference range was not used to interpret this result as normal/abnormal . VIKKI (test code = VIKKI) 6 hours after starting heparin infusion and as indicated per sliding scale Lab Interpretation Normal (test code = 13046-5) [place] [id number] 14:25:00 Test Item Value Reference Range Interpretation Comments PARTIAL THROMBOPLASTIN TIME 31.0 seconds 22.5-36.0 (BEAKER) (test code = 760) 6 hours after starting heparin infusion and as indicated per sliding scalePOCT- GLUCOSE [id number] 12:08:00 Test Item Value Reference Range Interpretation Comments POC-GLUCOSE METER 135 mg/dL 70-110 H : TESTED A T [facility] 6720 (BEAKER) (test code = [place] [facility], 1538) 36881: [employer]/Techni janel ID = [id number] for PO OLGAJEREMY CARLISLE ECG 12 [id number] 11:22:15Interface, External Ris In - 04/06/2020 11:22 AM CDTVentricular Rate 119 BPMAtrial Rate 119 BPMP-R Interval 128 msQRS Duration 84 msQ-T Interval 308 msQTC Calculation(Bazekameron) 433 msP [place] 68 degreesR [place] 64 degreesT [place] 55 degreesSinus tachycardiaOtherwise normal ECGConfirmed by MD ESTELLE, ELVIA ([id number]) on 04/06/2020 11:22:13 [facility] [id number] 07:52:00 Test Item Value Reference Range Interpretation Comments POC-GLUCOSE METER 128 mg/dL 70-110 H : TESTED A T [facility] 6720 (BEAKER) (test code = [place], 1538) 839[address]: [employer]/Techni janel ID = [id number] for JEREMY VILLEDA COMPREHENSIVE METABOLIC [id number] 04:36:00 Test Item Value Reference Range Interpretation [...] S NOT APPLICABLE FOR DIALYSIS PATIEN TS. [employer] ID - PIAYA [id number] 04:10:00 Test Item Value Reference Range Interpretation Comments PARTIAL THROMBOPLASTIN TIME 29.3 seconds 22.5-36.0 (BEAKER) (test code = 760) Prior to initiating heparinCBC W/PLT COUNT & AUTO [id number] 04:02:00 Test Item Value Reference Range Interpretation [...] = 2801) Urinalysis w/Microscopic + Reflex to [id number] 00:18:00 Test Item Value Reference Range Interpretation Comments Color, UA (test code Yellow = 5778-6) Clarity, UA (test Clear code = 5767-9) Specific Zortman, UA 1.015 1.001-1.035 (test code = 5811-5) pH, UA (test code = 7.0 5.0-8.0 5803-2) Protein, UA (test Negative Negative code = 23581-8) Glucose, UA (test Negative Negative code = 365) Ketones, UA (test Negative Negative code = 2514-8) Bilirubin, UA (test Negative Negative code = 88397-9) Blood, UA (test code Negative Negative = 00817-1) Nitrite, UA (test Negative Negative code = 5802-4) Leukocytes, UA (test Moderate Negative A code = 5799-2) Urobilinogen, UA 6.0 mg/dL 0.2-1 H (test code = 63790-0) RBC, UA (test code = <1 See_Comment [Autom ated 65025-8) message] The system which generated this result [...] . Bacteria, UA (test Occasional code = 51028-0) Squam Epithel, UA 5 See_Comment [Automate d (test code = 31247-1) messag e] The system which generated this result transmitted reference range : /HPF. The reference range was not used to interpret this result as normal/abnormal . Specimen Source (test code = 2795) VIKKI (test code = VIKKI) [employer] ID - [auto][employer] ID - ann Lab Interpretation Abnormal (test code = 04110-4) [facility]LEX URINE [id number] 00:18:00 Test Item Value Reference Range Interpretation [...] code = 516) SOURCE(BEAKER) (test code = 6005) [employer] ID - [auto][employer] ID - hankPOCT-GLUCOSE [id number] 23:31:00 Test Item Value Reference Range Interpretation Comments POC-GLUCOSE METER 137 mg/dL 70-110 H : TESTED A T [facility] 6720 (BEAKER) (test code = [place], 1538) 790[address]: [employer]/Techni janel ID = [id number] for CH UA, HENRISON [id number] 19:18:00 Test Item Value Reference Range Interpretation Comments Magnesium (test code = 1.6 mg/dL 1.6-2.6 04722-1) VIKKI (test code = VIKKI) [employer] ID - DB Lab Interpretation (test Normal code = 94595-5) [facility] Center[facility]osphorus2020-[facility] 19:18:00 Test Item Value Reference Range Interpretation Comments Phosphorus (test code = 2.9 mg/dL 2.3-4.7 2777-1) VIKKI (test code = VIKKI) [employer] ID - DB Lab Interpretation (test Normal code = 39235-7) [facility]PHOSPHORUS2020-05-29 19:18:00 Test Item Value Reference Range Interpretation Comments PHOSPHORUS (BEAKER) (test code = 2.9 mg/dL 2.3-4.7 604) [employer] ID - [id number] 19:18:00 Test Item Value Reference Range Interpretation Comments MAGNESIUM (BEAKER) (test code = 1.6 mg/dL 1.6-2.6 627) [employer] ID - DBBASIC METABOLIC [id number] 19:18:00 Test Item Value Reference Range Interpretation [...] S NOT APPLICABLE FOR DIALYSIS PATIEN TS. [employer] ID - [id number] 19:09:00 Test Item Value Reference Range Interpretation Comments D-Dimer, Quant (test 0.89 See_Comment H [Autom ated code = 77986-7) message] The system which generated this result [...] range. Lab Interpretation Abnormal (test code = 79375-4) [facility]2020-04-05 19:09:00 Test Item Value Reference Range Interpretation Comments SARS-COV2/RT-PCR Not Detected Not Detected, (test code = Negative 27037-3) SARS-COV-2 [facility] PERFORMING LAB (test code = 67083-4) VIKKI (test code = Negative results do [...] of the Act. Fact Sheet for Healthcare Providers:https://www.txtr/Documents/Xper t%20Xpress%20SARS%20CoV- 2/Fact%20Sheets/043-9502 %41FGQF-WKH-7%20HEALTHCA RE%20PROVIDERS%20FACT%20 SHEET.pdf Fact Sheet for Healthcare Patients:https://www.[employer]/Documents/Xpert %20Xpress%20SARS%20CoV-2 /Fact%20Sheets/3023801% 47IKJS-EDB-2%20PATIENT%2 0FACT%20SHEET.pdf Performing Laboratory:[facility] [place] [address] [facility] CenterD-[id number] 19:09:00 Test Item Value Reference Range Interpretation [...] of thrombosis is within 95-100% range. SARS-COV2/RT-PCR ([facility])2020-04-05 19:09:00 Test Item Value Reference Range Interpretation Comments SARS-COV2/RT-PCR (test Not Detected Not Detected, Negative code = 3847740) SARS-COV-[address] [facility] (test code = 1268619) Negative results do not preclude SARS-CoV-2 infection [...] of the Act.Fact Sheet for Healthcare Pro viders:https://www.Kindara.com/Documents/Xpert%20Xpress%20SARS%20CoV-2/Fact%20Sh eets/302-3802%00TERJ-QXV-3%20HEALTHCARE%20PROVIDERS%20FACT%20SHEET.pdfFact Sheet for Healthcare Patients:https://www.[employer]/Documents/Xpert%20Xpress%20SARS%20CoV-2/Fact%20Sheets/302-3801%20SARS-COV -2%20PATIENT%20FACT%20SHEET.pdfPerforming Laboratory:[facility], [place] [address]WUY W/PLT COUNT & AUTO DIFFERENTIAL 2020-04-05 19:01:00 [...] = 2801) RAD, CHEST, 1 VIEW, NON [id number] 17:16:00Reason for exam:->sob, feverShould this be performed at the bedside?->YesFINAL REPORT TECHNIQUE: Frontal chest radiograph dated 04/05/2020. CLINICAL HISTORY: SOB, Fever COMPARISON STUDY: Chest radiograph dated 04/01/2020 IMPRESSION:Endotracheal and enteric tubes have been removed. Lungs are clear. No pleural effusion or pneumothorax. Cardiomediastinalsilhouette is normal in size. No pulmonary edema. No fracture. Signed: Douglas Haleort Verified Date/Time: 04/05/2020 17:16:45 Reading Location: [address] Transitional Reading Room XR chest 1 view portable / [id number] 17:16:00 Interface, External Ris In - 04/05/2020 5:18 PM CDTFINAL REPORT TECHNIQUE: Frontal chest radiograph dated 04/05/2020. CLINICAL HISTORY: SOB, Fever COMPARISON STUDY: Chest radiograph dated 04/01/2020 IMPRESSION:Endotracheal and enteric tubes have been removed. Lungs are clear. No pleural effusion or pneumothorax. Cardiomediastinal silhouette is normal in size. No pulmonary edema. No fracture. Signed: Douglas Hale Verified Date/Time: 04/05/2020 17:16:45 Reading Location: [address] Transitional Reading Room [facility]ilionPOCT[facility]GLU[facility] [id number] 17:04:00 Test Item Value Reference Range Interpretation Comments POC-GLUCOSE METER 128 mg/dL 70-110 H : TESTED A T [facility] 6720 (BEAKER) (test code = [facility], 1538) 61279: [employer]/Techni janel ID = [id number] for RO DGERS, JAMECA Lactic acid, [id number] 16:47:00 Test Item Value Reference Range Interpretation Comments Lactate, Venous (test code = 1.24 mmol/L 0.5-2.2 2872) VIKKI (test code = VIKKI) [employer] ID - DB Lab Interpretation (test Normal code = 39146-3) [facility] CenterLACTIC ACID, [id number] 16:47:00 Test Item Value Reference Range Interpretation Comments LACTATE BLOOD VENOUS (2) (BEAKER) 1.24 mmol/L 0.50-2.20 (test code = 2872) [employer] ID - DBPOCT-GLUCOSE [id number] 11:33:00 Test Item Value Reference Range Interpretation Comments POC-GLUCOSE METER 92 mg/dL 70-110 : TESTED A T [facility] 6720 (BEAKER) (test code = [facility], 1538) 49906: [employer]/Techni janel ID = [id number] for RODG ERS, JAMECA POCT-GLUCOSE [id number] 08:34:00 Test Item Value Reference Range Interpretation Comments POC-GLUCOSE METER 136 mg/dL 70-110 H : TESTED A T [facility] 6720 (BEAKER) (test code = [facility], 1538) 08155: [employer]/Techni janel ID = [id number] for RO DGERS, JAMECA POCT-GLUCOSE [id number] 21:09:00 Test Item Value Reference Range Interpretation Comments POC-GLUCOSE METER 93 mg/dL 70-110 : TESTED A T [facility] 6720 (BEAKER) (test code = [facility], 1538) 99571: [employer]/Techni janel ID = [id number] for DILCIA Z, NADINA POCT-GLUCOSE [id number] 18:02:00 Test Item Value Reference Range Interpretation Comments POC-GLUCOSE METER 84 mg/dL 70-110 : TESTED A T [facility] 6720 (BEAKER) (test code = [place], 1538) 09[address]: [employer]/Techni janel ID = [id number] for DARYA SEWELL Hepatic function [id number] 16:01:00 Test Item Value Reference Range Interpretation Comments Protein, Total (test 7.4 See_Comment [Autom ated code = 2885-2) message] The system which generated this result transmit jassi reference range : 6.0 - 8.3 gm/dL . The reference range was not u sed to interpret th is result as normal/abnormal . Albumin (test code = 3.8 g/dL 3.5-5 41224-2) Total Bilirubin (test 1.4 mg/dL 0.2-1.2 H code = 1975-2) Bilirubin, Direct 0.7 mg/dL 0.1-0.5 H (test code = 1968-7) Alkaline Phosphatase 102 U/L 40-150 (test code = 6768-6) AST (test code = 67 U/L 5-34 H 1920-8) ALT (test code = 40 U/L 6-55 1742-6) VIKKI (test code = VIKKI) [employer] ID - NTP Lab Interpretation Abnormal (test code = 80805-7) [facility] CenterHEPAT[facility] FUNCTION [id number] 16:01:00 Test Item Value Reference Range Interpretation [...] (test code = 40 U/L 6-55 347) [employer] ID - NTPCBC W/PLT COUNT & AUTO [id number] 15:40:00 Test Item Value Reference Range Interpretation [...] PERCENT (BEAKER) (test code = 2801) POCT-GLUCOSE [id number] 11:53:00 Test Item Value Reference Range Interpretation Comments POC-GLUCOSE METER 94 mg/dL 70-110 : TESTED A T [facility] 6720 (BEAKER) (test code = [facility] [place] [facility], 1538) 787[address]: [employer]/Techni janel ID = [id number] for BROW N, DARYA POCT-GLUCOSE [id number] 09:06:00 Test Item Value Reference Range Interpretation Comments POC-GLUCOSE METER 114 mg/dL 70-110 H : TESTED A T [facility] 6720 (BEAKER) (test code = [facility], 1538) 21625: [employer]/Techni janel ID = [id number] for BR OWN, DARYA [id number] 06:19:00 Test Item Value Reference Range Interpretation Comments PHOSPHORUS (BEAKER) (test code = 3.8 mg/dL 2.3-4.7 604) [employer] ID - ZAHRA [id number] 06:19:00 Test Item Value Reference Range Interpretation Comments MAGNESIUM (BEAKER) (test code = 1.8 mg/dL 1.6-2.6 627) [employer] ID - ZAHRA MBASIC METABOLIC [id number] 06:19:00 Test Item Value Reference Range Interpretation [...] S NOT APPLICABLE FOR DIALYSIS PATIEN TS. [employer] ID - ZAHRA MCBC W/PLT COUNT & AUTO [id number] 05:56:00 Test Item Value Reference Range Interpretation [...] PERCENT (BEAKER) (test code = 2801) POCT-GLUCOSE [id number] 22:05:00 Test Item Value Reference Range Interpretation Comments POC-GLUCOSE METER 110 mg/dL 70-110 : TESTED A T [facility] 6720 (BEAKER) (test code = [facility], 153) [address]: [employer]/Techni janel ID = [id number] for [place] JOSE C PAIGE POCT-GLUCOSE [id number] 18:00:00 Test Item Value Reference Range Interpretation Comments POC-GLUCOSE METER 127 mg/dL 70-110 H : TESTED A T [facility] 6720 (BEAKER) (test code = [facility], 1538) 06[address]: [employer]/Techni janel ID = [id number] for Sm ith, Eliana POCT-GLUCOSE [id number] 11:47:00 Test Item Value Reference Range Interpretation Comments POC-GLUCOSE METER 100 mg/dL 70-110 : TESTED A T [facility] 6720 (BEAKER) (test code = [facility], 1538) 15[address]: [employer]/Techni janel ID = [id number] for Sm ith, Elaina Hemoglobin [id number] 10:02:00 Test Item Value Reference Range Interpretation Comments Hemoglobin A1C (test code = 4548-4) 6.0 % 4.3-6.1 Lab Interpretation (test code = Normal 90769-3) [facility] [id number] 10:02:00 Test Item Value Reference Range Interpretation Comments HEMOGLOBIN A1C (BEAKER) (test code = 6.0 % 4.3-6.1 368) POCT-GLUCOSE [id number] 07:38:00 Test Item Value Reference Range Interpretation Comments POC-GLUCOSE METER 115 mg/dL 70-110 H : TESTED A T [facility] 6720 (BEAKER) (test code = [facility], 1538) [address]: Over[employer] Truck/Techni janel ID = [id number] for Elaina Connelly U/S, ABDOMINAL, [id number] 06:20:00Abdomen limited area? Add comment if clarification [...] Leighton Walker MDReport Verified Date/Time: 04/03/2020 06:20:42 [facility] 04[facility]33[facility]00 Test Item Value Reference Range Interpretation Comments PHOSPHORUS (BEAKER) (test code = 3.3 mg/dL 2.3-4.7 604) [employer] ID - PIAYA [id number] 04:33:00 Test Item Value Reference Range Interpretation Comments MAGNESIUM (BEAKER) (test code = 1.8 mg/dL 1.6-2.6 627) [employer] ID - PIAYA LBASIC METABOLIC [id number] 04:33:00 Test Item Value Reference Range Interpretation [...] S NOT APPLICABLE FOR DIALYSIS PATIEN TS. [employer] ID - PIKARINA LHEPATIC FUNCTION [id number] 04:33:00 Test Item Value Reference Range Interpretation [...] (test code = 32 U/L 6-55 347) [employer] ID Caroline SALEH LCBC W/PLT COUNT & AUTO [id number] 04:08:00 Test Item Value Reference Range Interpretation [...] PERCENT (BEAKER) (test code = 2801) POCT-GLUCOSE [id number] 21:20:00 Test Item Value Reference Range Interpretation Comments POC-GLUCOSE METER 144 mg/dL 70-110 H : Notified RN/MD: (CHANG) (test code = TESTED AT [facility] 6720 1538) [facility], [address]: [employer]/Techni janel ID = [id number] for ZAYDA LANDON MR, BRAIN, WITHOUT [id number] 20:37:00FINAL REPORT MR, BRAIN, WITHOUT CONTRAST INDICATION: [...] Date/Time: 04/02/2020 20:37:03 MR brain without IV [id number] 20:37:00Interface, External Ris In - 04/02/2020 8:39 [...] Signed: Parvin More Verified Date/Time: 04/02/2020 20:37:03 [facility] [id number] 17:29:00 Test Item Value Reference Range Interpretation Comments POC-GLUCOSE METER 131 mg/dL 70-110 H : TESTED A T [facility] 6720 (BEAKER) (test code = [facility], 1538) [address]: [employer]/Techni janel ID = [id number] for KATIE ZAMORA LITHIUM [id number] 16:31:00 Test Item Value Reference Range Interpretation Comments LITHIUM LEVEL (BEAKER) < mmol/L 0.8-1.2 L This test was performed (test code = 630) at:[facility] , [facility], [address] [place] [address] Rapid drug screen, [id number] 13:58:00 Test Item Value Reference Range Interpretation Comments Barbiturate Screen Negative Negative (test code = 48951-7) Benzodiazepine Screen Positive Negative A (test code = 15244-8) Cocaine (Metab.) Negative Negative Screen (test code = 3397-7) Methadone Screen (test Negative Negative code = 60622-2) Opiate Screen (test Negative Negative code = 33462-5) Cannabinoid Screen Negative Negative (test code = 99012-8) Amph/Methamph Screen Negative Negative (test code = 05235-3) Phencyclidine Screen Negative Negative (test code = 91032-4) pH, UA (test code = 6.5 5.0-8.0 5803-2) VIKKI (test code = VIKKI) DRUG CUTOFF CONC.Cocaine 300 ng/mL Cannabinoid 50 ng/mLBenzodiazepine 200 ng/mLBarbiturate 200 ng/mLPhencyclidine 25 ng/mLOpiate 300 ng/mLMethadone 300 ng/mLAmphetamine/ 1000 ng/mL Methamphetamine This assay provides an unconfirmed qualitative test result for the clinical management of patients in emergency situations. Chain of custody not maintained. Some zguw-mky-pfmyzuz medications, as well as adulterants, may cause inaccurate results. Clinical correlation should be applied. A more comprehensive drug screen or confirmation of a detected drug may be performed upon request.[employer] ID - ADMIN Lab Interpretation Abnormal (test code = 83478-8) [facility] CenterR[facility]ID [facility]UG SCREEN, [id number] 13:58:00 Test Item Value Reference Range Interpretation [...] situations. Chain of custody not maintained. Some fkls-cuj-tumsmep medications, as well as adulterants, may cause inaccurate results. Clinical correlation should be applied. A more comprehensivedrug screen or confirmation of a detected drug may be performed upon request.[employer] ID - ADMINEEG W VID 12-26 HR CONTINUOUS MONITORING (VEEG)2020-04-02 13:28:00Reason for exam:- >SEIZURES Should this be performed at the bedside?->YesDate of EE04/01/2020 to 04/02/2020 DATE OF REPORT: 04/02/2020 ACC: [id number] EEG Number: [id number] Start time: 04/01/2020 @ 14:41 PM Stop time: 04/02/2020 @ 11:30 AM ICD-10: R56.9 CPT Code: 50231 HISTORY: 54 y.o. Female with ADHD, bipolar [...] Attending EEG 12-26 HR Continuous Monitoring with [id number] 13:28:00 Interface, External Ris In - 04/02/2020 1:28 PM CDTDate of EE04/01/2020 to 04/02/2020 DATE OF REPORT: 04/02/2020 ACC: [id number] EEG Number: [id number] Start time: 04/01/2020 @ 14:41 PM Stop time: 04/02/2020 @ 11:30 AM ICD-10: R56.9 CPT Code: 43237 HISTORY: 54 y.o. Female with ADHD, bipolar [...] by: ELVIE MCKAY MD on 04/02/2020 01:28 [facility] CenterAmmonia2020-05-26 12:55:00 Test Item Value Reference Range Interpretation Comments Ammonia (test code = 60 See_Comment [Autom ated 34966-3) message] The system which generated this result transmit jassi reference range : 18 - 72 mol/L . The reference range was not u sed to interpret th is result as normal/abnormal . VIKKI (test code = VIKKI) [employer] ID - ABILIO E Lab Interpretation Normal (test code = 75029-0) [facility] CenterAMMONIA2020-[facility] 12:55:00 Test Item Value Reference Range Interpretation Comments AMMONIA (BEAKER) (test code = 348) 60 mol/L 18-72 [employer] ID - ABILIO EPOCT-GLUCOSE [id number] 11:12:00 Test Item Value Reference Range Interpretation Comments POC-GLUCOSE METER 165 mg/dL 70-110 H : TESTED A T [facility] 6720 (BEAKER) (test code = [facility] [employer] [facility], 1538) [address]: [employer]/Techni janel ID = [id number] for KATIE ZAMORA POCT-GLUCOSE [id number] 08:44:00 Test Item Value Reference Range Interpretation Comments POC-GLUCOSE METER 97 mg/dL 70-110 : TESTED A T [facility] 6720 (BEAKER) (test code = [facility] [employer] [facility], 1538) [address]: [employer]/Techni janel ID = [id number] for HARIS FUCHS BASIC METABOLIC [id number] 05:35:00 Test Item Value Reference Range Interpretation [...] S NOT APPLICABLE FOR DIALYSIS PATIEN TS. [employer] ID - MARYBC W/PLT COUNT & AUTO [id number] 05:04:00 Test Item Value Reference Range Interpretation [...] PERCENT (BEAKER) (test code = 2801) POCT-GLUCOSE [id number] 02:05:00 Test Item Value Reference Range Interpretation Comments POC-GLUCOSE METER 116 mg/dL 70-110 H : TESTED A T [facility] 6720 (BEAKER) (test code = [facility], 1538) [address]: [employer]/Techni janel ID = [id number] for Neda Pineda T4, [id number] 20:56:00 Test Item Value Reference Range Interpretation Comments Free T4 (test code = 1.19 ng/dL 0.7-1.48 3024-7) VIKKI (test code = VIKKI) [employer] ID - NTP Lab Interpretation (test Normal code = 44395-8) [facility] CenterT4, [id number] 20:56:00 Test Item Value Reference Range Interpretation Comments FREE T4 (BEAKER) (test code = 655) 1.19 ng/dL 0.70-1.48 [employer] ID - NTPPOCT-GLUCOSE [id number] 20:54:00 Test Item Value Reference Range Interpretation Comments POC-GLUCOSE METER 99 mg/dL 70-110 : TESTED A T [facility] 6720 (AKER) (test code = [facility], 1538) [address]: [employer]/Techni janel ID = [id number] for DUNG DOWLING TSH/Free T4 If [id number] 20:18:00 Test Item Value Reference Range Interpretation Comments TSH (test code = 0.057 See_Comment L [Automated 78425-7) message] The system which generated this result transmit jassi reference range : 0.350 - 4.940 uIU/mL. The reference range was not used to interpret this result as normal/abnormal . VIKKI (test code = VIKKI) [employer] ID - NTP Lab Interpretation Abnormal (test code = 47975-6) [facility] CenterTSH/FREE T4 IF [id number] 20:18:00 Test Item Value Reference Range Interpretation Comments THYROID STIMULATING HORMONE 0.057 uIU/mL 0.350-4.940 L (AKER) (test code = 772) [employer] ID - NTPVitamin B12 and [id number] 20:07:00 Test Item Value Reference Range Interpretation Comments Vitamin B12 (test 929 pg/mL 213-816 H code = 2132-9) Folate (test code = 15.80 ng/mL See_Comment [Automa jassi 2284-8) message] The system which generated this result transmit jassi reference range : >=7.00. The reference range was not used to interpret this result as normal/abnormal . VIKKI (test code = VIKKI) [employer] ID - NTP Lab Interpretation Abnormal (test code = 76006-8) [facility] CenterVITAMIN B12 AND [id number] 20:07:00 Test Item Value Reference Range Interpretation Comments VITAMIN B12 (BEAKER) (test code = 929 pg/mL 213-816 H 774) FOLATE (BEAKER) (test code = 362) 15.80 ng/mL >=7.00 [employer] ID - NTPHEPATIC FUNCTION [id number] 19:32:00 Test Item Value Reference Range Interpretation [...] (test code = 31 U/L 6-55 347) [employer] ID - NTPPOCT-GLUCOSE [id number] 18:09:00 Test Item Value Reference Range Interpretation Comments POC-GLUCOSE METER 96 mg/dL 70-110 : TESTED A T [facility] 6720 (BEAKER) (test code = [facility], 1538) [address]: [employer]/Techni janel ID = [id number] for SLY DUBOSE POCT-GLUCOSE [id number] 12:33:00 Test Item Value Reference Range Interpretation Comments POC-GLUCOSE METER 102 mg/dL 70-110 : TESTED A T [facility] 6720 (ANNIEAKER) (test code = [place], 1538) [address]: [employer]/Techni janel ID = [id number] for JOSEPHINE HOOVER Troponin [id number] 07:53:00 Test Item Value Reference Range Interpretation Comments Troponin I (test code = 0.01 ng/mL 0-0.03 85128-3) VIKKI (test code = VIKKI) Troponin I [...] NTP Lab Interpretation (test Normal code = 09965-8) [facility] CenterTROPONIN [id number] 07:53:00 Test Item Value Reference Range Interpretation [...] failure, acidosis, acute neurological disease, and persistent tachyarrhythmia.[employer] ID - NTPSARS-COV2/RT-PCR ([facility])2020-04-01 06:29:00 Test Item Value Reference Range Interpretation Comments SARS-COV2/RT-PCR (test Not Detected Not Detected, Negative code = 5427716) SARS-COV-[address] [facility] (test code = 2929069) Negative results do not preclude SARS-CoV-2 infection [...] of the Act.Fact Sheet for Healthcare Pro viders:https://www.eBay/Documents/Xpert%20Xpress%20SARS%20CoV-2/Fact%20Sh eets/302-3802%81UWCF-VML-5%20HEALTHCARE%20PROVIDERS%20FACT%20SHEET.pdfFact Sheet for Healthcare Patients:https://www.Fixstars/Documents/Xpert%20Xpress%20SARS%20CoV-2/Fact%20Sheets/302-3801%20SARS-COV -2%20PATIENT%20FACT%20SHEET.pdfPerforming Laboratory:[facility] [facility] Campusfab[facility] [address], [place] [address]ERO W/PLT COUNT & AUTO DIFFERENTIAL 2020-04-01 05:56:00 [...] code = 2801) URINALYSIS W/ REFLEX URINE [id number] 05:55:00 Test Item Value Reference Range Interpretation [...] = 1584) SOURCE(BEAKER) (test code = 2795) [employer] ID - [auto][employer] ID - techCreatine Kinase (CK)2020-04-01 05:42:00 Test Item Value Reference Range Interpretation Comments Total CK (test code = 79 U/L 29-200 2157-6) VIKKI (test code = VIKKI) [employer] ID - ZAHRA M Lab Interpretation (test Normal code = 63099-5) [facility] CenterPHOSPHORUS2020-05-25 05:42:00 Test Item Value Reference Range Interpretation Comments PHOSPHORUS (BEAKER) (test code = 3.0 mg/dL 2.3-4.7 604) [employer] ID - ZAHRA [id number] 05:42:00 Test Item Value Reference Range Interpretation Comments MAGNESIUM (BEAKER) (test code = 2.1 mg/dL 1.6-2.6 627) [employer] ID - ZAHRA MBASIC METABOLIC [id number] 05:42:00 Test Item Value Reference Range Interpretation [...] S NOT APPLICABLE FOR DIALYSIS PATIEN TS. [employer] ID - ZAHRA MCREATINE KINASE (CK)2020-04-01 05:42:00 Test Item Value Reference Range Interpretation Comments CREATINE KINASE TOTAL (BEAKER) (test 79 U/L code = 380) [employer] ID - ZAHRA [id number] 05:34:00 Test Item Value Reference Interpretation Comments Range Protime (test code = 15.4 See_Comment H [Autom ated 6232-2) message] The system which generated this result transmitted reference range : 11.9 - 14.2 seconds. The reference range was not used to interpret this result as normal/abnormal . INR (test code = 1.3 See_Comment [Automated 6551-6) message] The system which generated this result transmitted reference range : <=5.9. The reference range was not used to interpret this result as normal/abnormal . PTT (test code = 25.8 See_Comment [Automated 66827-2) message] The system which generated this result [...] valves. 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 The ECG is interpreted as sinus tachycardia. Rate is tachycardic. Heart rate is 111 BPM.ST segments normal. T waves normal. [place] is normal. Other findings include: prolonged QTc interval. Clinical Impression: non-specific ECGECG reviewed and does not meet STEMI criteria. Patient tolerance: Patient tolerated the procedure well with no immediate complicationsCHI [facility] Glucose, [id number] 05:26:00 Test Item Value Reference Range Interpretation Comments POC Glucose (test 136 mg/dL 70-115 H Notify RN or MDIf you code = POCGLUC) consider you r patient critically ill, the Moira Accu-Chek InformII metershould not be used for Glucose determinations. Draw a venous Glucose and send to the Main Lab for Analysis. [id number] 08:15:00 Test Item Value Reference Range Interpretation Comments [place] (test code = LI) 0.44 mmol/L 0.6-1.2 L POC Glucose, [id number] 05:37:00 Test Item Value Reference Range Interpretation Comments POC Glucose (test 134 mg/dL 70-115 H If you con lacrosse player your code = POCGLUC) patient crit ically ill, the Moira Accu- Chek InformII meters hould not be used for Glu cose determinations. Draw a venous Glucose and send to the Main Lab for Analysis. POC Glucose, [id number] 07:28:00 Test Item Value Reference Range Interpretation Comments POC Glucose (test 128 mg/dL 70-115 H If you con lacrosse player your code = POCGLUC) patient crit ically ill, the Moira Accu- Chek InformII meters hould not be used for Glu cose determinations. Draw a venous Glucose and send to the Main Lab for Analysis. POC Glucose, [id number] 20:18:00 Test Item Value Reference Range Interpretation Comments POC Glucose (test 121 mg/dL 70-115 H If you con lacrosse player your code = POCGLUC) patient crit ically ill, the Moira Accu- Chek InformII meters hould not be used for Glu cose determinations. Draw a venous Glucose and send to the Main Lab for Analysis. BHCG, Serum, [id number] 22:36:00 Test Item Value Reference Range Interpretation Comments Preg Qual [Se] (test code = BSHCG) Negative Negative N POC Glucose, [id number] 15:14:00 Test Item Value Reference Range Interpretation Comments POC Glucose (test 117 mg/dL 70-115 H If you con lacrosse player your code = POCGLUC) patient crit ically ill, the Moira Accu- Chek InformII meters hould not be used for Glu cose determinations. Draw a venous Glucose and send to the Main Lab for Analysis.
--- NOTE | 2021-03-22 21:36 | EDPHYS ---
Physician Documentation [facility] Name: Wendi Norton Age: 55 yrs Sex: Female : 1965 Arrival Date: 03/22/2021 Time: 20:23 Bed 19 Private MD: ED Physician Rommel Samuels HPI: 03/22 20:30 This 55 yrs old Female presents to ER via EMS with complaints of Ear Pain. cp 20:30 The patient presents with drainage, that is purulent, pain, that is acute. The cp complaints affect the right ear and left ear. 20:30 Onset: The symptoms/episode began/occurred 4 day(s) ago. cp 20:30 Associated signs and symptoms: Pertinent positives: sore throat, Pertinent negatives: cp cough, fever, sinus trouble, vomiting. Severity of symptoms: in the emergency department the symptoms are unchanged despite home interventions. Historical: - Allergies: 20:28 No Known Allergies; zb - Home Meds: 20:28 Adderall XR Oral 1 cap once daily [Active]; clonazepam 2 mg Oral tab 1 tab daily zb [Active]; fluoxetine 20 mg Oral tab 1 tab once daily [Active]; lithium carbonate 300 mg Oral cpER 1 tab nightly [Active]; quetiapine 300 mg Oral tab 1 tab nightly [Active]; Tylenol #3 Oral [Active]; Vicodin 5-300 mg Oral tab 1 tab daily [Active]; - PMHx: 20:28 ADD/ADHD; Asthma; Bipolar disorder; breast cancer- in remission; COPD; Depression; zb Diabetes - NIDDM; Diverticulitis; Hepatitis; Pain Management; PTSD; - PSHx: 20:28 Tubal ligation; zb - Immunization history:: Adult Immunizations up to date. - Social history:: Smoking status: Patient reports the use of cigarette tobacco products, smokes one-half pack cigarettes per day. ROS: 20:35 Constitutional: Negative for body aches, chills, fever, poor PO intake. cp 20:35 Eyes: Negative for injury, pain, redness, and discharge. cp 20:35 ENT: Positive for ear pain, sore throat, Negative for drainage from ear(s), difficulty swallowing, difficulty handling secretions. 20:35 Respiratory: Negative for cough. 20:35 Abdomen/GI: Negative for vomiting, diarrhea, constipation. 20:35 Neuro: Negative for altered mental status, headache, weakness. 20:35 All other systems are negative. Exam: 20:40 Constitutional: The patient appears in no acute distress, alert, awake, non-toxic, well cp developed, well nourished. 20:40 Head/Face: Normocephalic, atraumatic. cp 20:40 Eyes: Periorbital structures: appear normal, Conjunctiva: normal, no exudate, no injection, Sclera: no appreciated abnormality, Lids and lashes: appear normal, bilaterally. 20:40 ENT: External ear(s): are unremarkable, Ear canal(s): are normal, clear, TM's: erythema, that is mild, bilaterally, Nose: is normal, Mouth: Lips: moist, Oral mucosa: moist, Posterior pharynx: Airway: no evidence of obstruction, patent, Uvula: midline, swelling, is not appreciated, erythema, that is mild. 20:40 Neck: ROM/movement: is normal, is supple, no meningismus, no nuchal rigidity, Lymph nodes: lymphadenopathy is appreciated, anterior cervical nodes. 20:40 Chest/axilla: Inspection: normal. Vital Signs: 20:24 BP 111 / 65; Pulse 93; Resp 16; Temp 98.3; Pulse Ox 96% on R/A; Weight 90.72 kg; Height zb 5 ft. 4 in. (162.56 cm); Pain 9/10; 20:24 Body Mass Index 34.33 (90.72 kg, 162.56 cm) zb MDM: 20:24 Patient medically screened. cp 21:00 Differential diagnosis: otitis media, otitis externa, ruptured TM, cerumen impaction, cp strep throat. 21:35 Data reviewed: vital signs, nurses notes, lab test result(s), and as a result, I will cp discharge patient. 21:35 Counseling: I had a detailed discussion with the patient and/or guardian regarding: the cp historical points, exam findings, and any diagnostic results supporting the discharge/admit diagnosis, lab results, to return to the emergency department if symptoms worsen or persist or if there are any questions or concerns that arise at home. 03/22 20:24 Order name: Strep cp 03/22 20:25 Order name: Group A Streptococcus Rapid In EDMS 03/22 21:16 Order name: Throat Culture EDMS Administered Medications: 22:06 Drug: Tylenol 1000 mg Route: PO; zb 22:18 Follow up: Response: Medication administered at discharge. zb 22:18 Not Given (Patient Refused): Ibuprofen 800 mg PO once zb Disposition: 03/23 05:05 Co-signature as Attending Physician, Rommel Samuels MD. [email or web address] Disposition: 03/22/21 21:35 Discharged to Home. Impression: Otitis media, unspecified, bilateral, Acute pharyngitis. - Condition is Stable. - Discharge Instructions: Otitis Media, Adult, Pharyngitis, Sore Throat. - Prescriptions for Amoxicillin 875 mg Oral Tablet - take 1 tablet by ORAL route every 12 hours for 10 days; 20 tablet. - Medication Reconciliation Form, Thank You Letter, Antibiotic Education, Prescription Opioid Use form. - Follow up: Private Physician; When: 2 - 3 days; Reason: Worsening of condition. - Problem is new. - Symptoms have improved. Signatures: Dispatcher [employer] EDFL Donavan Penn PA PA cp Rommel Samuels MD MD [facility] Yolette Keene RN RN zb Corrections: (The following items were deleted from the chart) 03/22 22:26 21:35 03/22/2021 21:35 Discharged to Home. Impression: Otitis media, unspecified, zb bilateral; Acute pharyngitis. Condition is Stable. Forms are Medication Reconciliation Form, Thank You Letter, Antibiotic Education, Prescription Opioid Use. Follow up: Private Physician; When: 2 - 3 days; Reason: Worsening of condition. Problem is new. Symptoms have improved. cp
--- NOTE | 2021-03-22 21:36 | ER ---
Nurse's Notes [facility] Name: Wendi Norton Age: 55 yrs Sex: Female : 1965 Arrival Date: 03/22/2021 Time: 20:23 Bed 19 Private MD: Diagnosis: Otitis media, unspecified, bilateral;Acute pharyngitis Presentation: 03/22 20:24 Chief complaint: EMS states: bilateral ear pain with pus coming from both ears for the zb past 3-4 days. Coronavirus screen: At this time, the client does not indicate any symptoms associated with coronavirus-19. Ebola Screen: No symptoms or risks identified at this time. Initial Sepsis Screen: Does the patient meet any 2 criteria? No. Patient's initial sepsis screen is negative. Does the patient have a suspected source of infection? No. Patient's initial sepsis screen is negative. Risk Assessment: Do you want to hurt yourself or someone else? Patient reports no desire to harm self or others. Onset of symptoms was March 19, 2021. 20:24 Method Of Arrival: EMS: [facility] zb 20:24 Acuity: RAUL 4 zb Triage Assessment: 20:28 General: Appears in no apparent distress. uncomfortable, Behavior is anxious. Pain: zb Complains of pain in right ear and left ear Pain currently is 9 out of 10 on a pain scale. EENT: Tympanic membrane clear on left ear and right ear Reports pain in left ear and right ear when swallowing. Neuro: Level of Consciousness is awake, alert, obeys commands, Oriented to person, place, time, situation. Cardiovascular: Patient's skin is warm and dry. Respiratory: No deficits noted. Respiratory: No deficits noted. GI: No deficits noted. : No deficits noted. Derm: Skin is intact, is healthy with good turgor, Skin is dry, Skin is normal, Skin temperature is warm. Musculoskeletal: Circulation, motion, and sensation intact. Range of motion: intact in all extremities. Historical: - Allergies: 20:28 No Known Allergies; zb - Home Meds: 20:28 Adderall XR Oral 1 cap once daily [Active]; clonazepam 2 mg Oral tab 1 tab daily zb [Active]; fluoxetine 20 mg Oral tab 1 tab once daily [Active]; lithium carbonate 300 mg Oral cpER 1 tab nightly [Active]; quetiapine 300 mg Oral tab 1 tab nightly [Active]; Tylenol #3 Oral [Active]; Vicodin 5-300 mg Oral tab 1 tab daily [Active]; - PMHx: 20:28 ADD/ADHD; Asthma; Bipolar disorder; breast cancer- in remission; COPD; Depression; zb Diabetes - NIDDM; Diverticulitis; Hepatitis; Pain Management; PTSD; - PSHx: 20:28 Tubal ligation; zb - Immunization history:: Adult Immunizations up to date. - Social history:: Smoking status: Patient reports the use of cigarette tobacco products, smokes one-half pack cigarettes per day. Screenin:00 Abuse screen: Denies threats or abuse. Denies injuries from another. Nutritional zb screening: No deficits noted. Tuberculosis screening: No symptoms or risk factors identified. Fall Risk None identified. Assessment: 21:00 Reassessment: SEE triage assessment. zb 22:00 Reassessment: Patient appears in no apparent distress at this time. Patient and/or zb family updated on plan of care and expected duration. Pain level reassessed. Patient is alert, oriented x 3, equal unlabored respirations, skin warm/dry/pink. 22:04 Reassessment: pt c/o notified ECP. pain medication ordered. ECP discussed care with zb patient, patient stated that she needed something for sleep, but didn't have a ride home. patient stated she would call someone to pick her up. ECP stated to hold discharge until patient can find a ride, so she can receive additional medications. 22:04 Reassessment: patient stated that she want to go home. she didn't want to wait any zb longer. refused Ibuprofen. Vital Signs: 20:24 BP 111 / 65; Pulse 93; Resp 16; Temp 98.3; Pulse Ox 96% on R/A; Weight 90.72 kg; Height zb 5 ft. 4 in. (162.56 cm); Pain 9/10; 20:24 Body Mass Index 34.33 (90.72 kg, 162.56 cm) zb ED Course: 20:23 Patient arrived in ED. zb 20:24 Donavan Penn PA is PHCP. cp 20:24 Rommel Samuels MD is Attending Physician. cp 20:27 Triage completed. zb 20:49 Yolette Keene, RN is Primary Nurse. zb 20:51 Patient has correct armband on for positive identification. Bed in low position. Call zb light in reach. Side rails up X 1. Pulse ox on. NIBP on. Door closed. 20:51 Arm band placed on. zb 22:03 No provider procedures requiring assistance completed. Patient did not have IV access zb during this emergency room visit. 22:06 Strep Sent. zb Administered Medications: 22:06 Drug: Tylenol 1000 mg Route: PO; zb 22:18 Follow up: Response: Medication administered at discharge. zb 22:18 Not Given (Patient Refused): Ibuprofen 800 mg PO once zb Outcome: 21:35 Discharge ordered by MD. cp 22:03 Discharged to home ambulatory. zb 22:03 Condition: stable 22:03 Discharge instructions given to patient, Instructed on discharge instructions, follow up and referral plans. medication usage, Demonstrated understanding of instructions, follow-up care, medications, Prescriptions given X 1. 22:26 Patient left the ED. zb Signatures: Donavan Penn PA PA cp Yolette Keene, RN RN zb
[2021-03-22] MEDS ORDERED: ACETAMINOPHEN 500 MG TAB ONE (22:07)
[2021-03-22 22:50] VITALS: BP 111/65; TEMP 98.3; O2SAT 96
== END 2021-03-22 22:26 | disposition home or self-care (01) ==
LOC: ER 20:19
DX: H66.93 Otitis media, unspecified, bilateral (principal); J02.9 Acute pharyngitis, unspecified; E11.9 Type 2 diabetes mellitus without complications; F32.9 Major depressive disorder, single episode, unspecified; F17.210 Nicotine dependence, cigarettes, uncomplicated; Z85.3 Personal history of malignant neoplasm of breast
CPT/HCPCS: 87070; 87081; 99284

== ENCOUNTER 2021-04-25 18:55 | Emergency (ER) | payer OTHER ==
--- OUTSIDE RECORDS SUMMARY | 2021-04-25 19:02 | XMS REPORT | Continuity of Care Document ---
:1965 Author Organization [facility] t Address Formerly [facility] Baker [address] [place] [id number] Care Team Providers Name Role Phone JANEEN Primary Care Physician Unavailable Liliana BIRCH Attending Clinician Harinder BIRCH Attending Clinician Maria M BETANCOURT Attending Clinician Janeen MOYA Attending Clinician Dejan RN, L Attending Clinician Unavailable Fantasma MOYA Attending Clinician Rosa Maria BAER, R Attending Clinician Unavailable Sam BAER Attending Clinician Unavailable JANEEN Attending Clinician Unavailable MARIA M Attending Clinician Unavailable Guicho LEAVITT Attending Clinician Korey MOYA Attending Clinician KOREY Attending Clinician Unavailable Harrison BAER Attending Clinician Unavailable UNIQUE Attending Clinician Unavailable MARKO CORDOVA M.D. Attending Clinician Unavailable DENISSE Admitting Clinician Unavailable MARKO CORDOVA M.D., M Admitting Clinician Unavailable Payers Payer Name Policy Type Policy Effective Expiration Source Number Date Date MEDICAREMEDICARE PART A [id number] 2005 MD Hawley AND 00:00:00 [id number] 2004-Pr [phone] , [facility] [place] [id number] 2018 MD Juan Antonio melendez TRADITIONALMEDICAID [place] 00:00:00 TRADITIONAL STAR PLUS [id number]/-Pr esentMedicaid Problems Condition Condition Condition Status Onset Resolution Last Treating Co mments Source Name Details Category Date Date Treatment Clinician Date E-coli UTI E-coli UTI Disease Active [facility] Tobacco Tobacco Disease Active [facility] - [facility] [...] Impaired Disease Active Overview: glucose glucose 05-30 Formatthomas Georges so tolerance tolerance 00:00: g of this n 00 note is different from the original. Lab Results Component Value Date A1C 5.8 (H) 9 A1C 5.6 7 Osteoarthr Osteoarthr Disease Active Overview : itis itis 05-29 Formatthomas Andtalibo 00:00: g of this n 00 note might be different from the original. 2015:IMPR ESSION:1. Small central disc herniatio n at L2-L3 with minimal indentati on of thethecal sac and mild narrowing of the spinal canal.2. Changes of degenerat rex disc disease and facet degenerat rex diseaseth roughout the lumbar spine as described above. Portal Portal Disease Active Overview: MD lee hyperti 05-14 Whitney Andnoemi on on 00:00: g of this n 00 note might be different from the original. 9:Hepatos plenomega ly. There are findings suggestiv e [...] of this n disease disease 00 note is different from the original. Lab Results Component [...] of this n openia openia 00 note is different from the original. Lab Results Component Value Date PLT 66 (L) 9 Obesity Obesity Disease Active Overview: 9 Formattin Anderso 00:00: g of this n 00 note is different from the original. BMI Readings from [...] Other Disease Active Overview: cirrhosis cirrhosis 5-15 Formattin A nderso of liver of liver 00:00: g of this n 00 note might be different from the original. Per ID: Fibrospec t is 81. Liver ultrasoun d suggests cirrhosis that appears to be compensat ed based (Child Garcia score 5A). Followed by Dr. [address] CT 05/11/19: Hepatospl enomegaly . There are findings suggestiv e of portal hypertens ion. Chronic Chronic Disease Active pain pain 130 Anderso 00:00: n 00 Estrogen Estrogen Disease [...] of Disease Active Overview : hepatitis hepatitis Whitney alamo of this n note might be different from the original. Per ID team: "She denies blood transfusi on before 1991, but she recalled using dilaudid IV by herself and possible sharing needles." Completed 12 weeks of Harvoni under care of Dr. Manley in January 2019. 528 9 08:25HepC RNA PCR [facility] Undetecte d IU/mL (Undetec jassi) Allergies, Adverse Reactions, Alerts This patient has no known allergies or adverse reactions. Family History Family Member Diagnosis Comments Start Date Stop Date Source Family member -Breast cancer MD Douglas couch Family member Ovarian cancer MD Douglas couch Social History Social Habit Start Date Stop Date Quantity Comments Source Tobacco use and 2019-11-23 2019-11-23 Never used MD Gudino on exposure 00:00:00 00:00:00 Alcohol intake 2019-11-23 2019-11-23 Current non-drinker Sg Hawley 00:00:00 00:00:00 of alcohol (finding) Tobacco Comment 2019-11-23 2019-11-23 Down from 2 ppd to Sg Hawley 00:00:00 00:00:00 5 cigarettes max per day Alcohol Comment 2018-05-05 2018-05-05 Denies any recent MD Hawley 00:00:00 00:00:00 use, remote hx Sex [birth year] At [birth year] MD Gudino on 00:00:00 00:00:00 Smoking Status Start Date Stop Date Source Current every day smoker 2019-11-23 00:00:00 MD Hawley Medications Ordered Filled Start Stop Current Ordering Indication Dosage Frequency Signature Comments Components Source Medication Medication Date Date Medication? 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 1 mg tablet 00:00: of central MOUTH n 00 portion of EVERY DAY left female breast anastrozole 2020- No Mucinous TAKE 1 (ARIMIDEX) 4- 06-08 carcinoma TABLET BY Anderso 1 mg tablet 00:00: 00:00 of central MOUTH n 00 :00 portion of EVERY DAY left female breast anastrozole 2019-11- No Mucinous TAKE 1 MD (ARIMIDEX) 2- 04-06 carcinoma TABLET BY Anderso 1 mg tablet 00:00: 00:00 of central MOUTH n 00 :00 portion of EVERY DAY left female breast anastrozole 2019-11 2020- No Mucinous TAKE 1 MD (ARIMIDEX) 0-12 [...] Roxy 8-06 [place] directed [facility] [place] [facility] Levemir Levemir 2020-0 Yes Lea as [facility] FlexTouch FlexTouch 8-06 Millender directed [facility] Pen Mclean Pen Mclean 2019-0 Yes Lea as [facility] 8-06 [facility] directed [facility] anastrozole 2019- 2020- No Mucinous TAKE 1 MD (ARIMIDEX) [...] 08:45: daily. Medi shelley 06 Center umeclidiniu 2020-0 Yes 1{puff} QD Inhale [address] [facility] [facility] m-vilantero 6-09 puff by [facility] - L (ANORO 08:45: mouth via Medi shelley ELLIPTA) 06 inhaler Center 62.5-25 daily. mcg/actuati on DsDv acetaminoph 2020-0 Yes 1{tbl} Take [address] en-codeine 6-09 tablet by Jeet s - (TYLENOL 08:45: mouth Medical #3) 300-30 06 every 8 Center mg per (eight) tablet hours as needed (severe pain) . QUEtiapine 2020-0 Yes 200mg Q.5D Take [address] (SEROQUEL) 6-08 tablets [facility] - 50 MG 00:00: (200 mg Medical tablet 00 total) by Center mouth 2 (two) times daily. lithium 150 2020-0 Yes 600mg Take [address] MG capsule 6-08 capsules [facility] - 00:00: (600 mg Medical 00 total) by Center mouth 2 (two) times daily with breakfast and dinner. albuterol 2020-0 2020- No 2{puff} Inhale [address] HFA 6-08 06-08 puffs by Aquiles - (VENTOLIN 00:00: 23:59 mouth via Me dical HFA) 90 00 :00 inhaler Center mcg/actuati every 6 on inhaler (six) hours as needed for Wheezing. polyethylen 2020-0 Yes Constipatio 17g Take 17 g MD e glycol 1-16 n, not by mouth Georges so (MIRALAX) 00:00: otherwise daily. n 17 00 specified gram/dose powder anastrozole 2020-0 2020- No Mucinous 1mg Take 1 MD (ARIMIDEX) 1-16 07-07 carcinoma tablet (1 Anderso 1 mg tablet 00:00: 00:00 of central mg) by n 00 :00 portion of mouth left female daily. breast cyclobenzap 2020-0 Yes 1{tbl} Take 1 MD rine 1-15 tablet by Anderssarika (FLEXERIL) 00:00: mouth n 10 mg 00 twice tablet daily. QUEtiapine 2019-0 Yes 2{tbl} Take 2 MD (SEROquel) 1-15 tablets by And erso 300 mg 00:00: mouth at n tablet 00 bedtime. lithium 2019-0 Yes 1{capsu Take 1 MD carbonate 1-15 le} capsule by Douglas rso 300 MG 00:00: mouth n capsule 00 twice daily. clonazePAM 2019-0 Yes 1{tbl} Take 1 MD (KlonoPIN) 1-15 tablet by Douglas rso 2 mg tablet 00:00: mouth as n 00 needed. busPIRone 2019-0 Yes 1{tbl} Take 1 MD (BUSPAR) 10 1-15 tablet by And erso mg tablet 00:00: mouth 4 n 00 (four) times a day. QUEtiapine 2019-0 Yes 1{tbl} Take 1 MD (SEROquel) 1-15 tablet by Douglas rso 50 mg 00:00: mouth n tablet 00 daily. nystatin Yes Schizophren Apply M D (MYCOSTATIN 3-26 iform topically An derso ) 100,000 00:00: disorder to n units/g 00 affected powder area(s) 3 (three) times a day. FLUoxetine Yes Schizophren 40mg Take 1 MD (PROzac) 40 9-26 iform capsule Douglas rso mg capsule 00:00: disorder (40 mg) by n 00 mouth daily. Paxil Paxil Yes Lea [address] [facility] [address] Millender in the [facility] - morning [facility] ent Clinics Adderall Adderall Yes Lea [address] [facility] Risperdal Risperdal Yes Lea [address] [facility] Clinics Dixmoor Dixmoor Yes Lea (450 mg) [address] Carbonate Carbonate Millender capsule [facility] Quetiapine Quetiapine Yes Lea [address] Fumarate Fumarate Millender at bedtime [facility] Klonopin Klonopin Yes Lea [address] [facility] ent Clinics Procedures This patient has no known procedures. Plan of Care Planned Activity Planned Date Details Comments Source Future Scheduled 2020-04-[address] [facility] 00:[facility] [code = 701666860] Future Scheduled 2014 SHINGLES VACCINES ([address] [facility] - Test 00:00:00 of 2) [code = SHINGLES Medic al Center VACCINES (1 of 2)] Future Scheduled [address] - Test 00:00:00 (procedure) [code = Medical Center 45751380] Future Scheduled 2006-10-[address] [facility] - Test 00:00:00 WELLNESS (YEAR 2 or Medical Center FIRST YEAR if no IPPE) [code = MEDICARE ANNUAL WELLNESS (YEAR 2 or FIRST YEAR if no IPPE)] Future Scheduled [address] [facility] - Test 00:00:00 [facility] cervix (procedure) [code = 475737832] Future Scheduled 1983 DTAP/TDAP/TD VACCINES CH I [...] es - Test 00:00:00 [facility] colon (procedure) [code = 973193841] Encounters Start End Encounter Admission Attending Care Care Encounter Source Date/Time Date/Time Type Type Clinicians Facility Department ID 2020-08-20 2020-08-20 Outpatient [facility] [id number] [facility] 2020-08-18 2020-08-18 Outpatient [facility] [id number] [facility] 2020-08-16 2020-08-16 Outpatient [facility] [id number] [facility] 2020-08-07 2020-08-07 Outpatient [facility] [id number] [facility] Outpati ent Clinics 2020-07-09 2020-07-09 Outpatient [facility] [id number] [facility] 2020-06-13 2020-06-13 [facility] [id number] 11:00:00 11:00:00 [facility] Outpati ent Clinics 2020-05-24 2020-05-24 Outpatient AWILDA VERNON, MDA MDA [id number] MD 00:00:00 00:00:00 NEDA melendez 2020-05-23 2020-05-23 Outpatient AWILDA VERNON, MDA MDA [id number] MD 00:00:00 00:00:00 NEDA melendez 2020-05-13 2020-05-13 Outpatient AWILDA SULLIVAN, MDA MDA [id number] MD 00:00:00 00:00:00 FAUSTINO melendez 2020-05-07 2020-05-07 Outpatient AWILDA VERNON, MDA MDA [id number] MD 00:00:00 00:00:00 NEDA melendez 2020-05-07 2020-05-07 Outpatient AWILDA VERNON, MDA MDA [id number] MD 00:00:00 00:00:00 NEDA melendez 2020-04-30 2020-04-30 Outpatient AWILDA POLANCO, MDA MDA [id number] MD 09:15:00 23:59:00 LAMBERTO melendez 2019-10-18 2019-10-18 [facility] [id number] 08:20:00 08:20:00 [facility] Outpati ent Clinics 2019-10-10 2019-10-10 [facility] [id number] 16:00:00 16:00:00 [facility] Results Test Description Test Time Test Comments Results Result Comments Source POCT-GLUCOSE METER 2020-04-15 22:17:00 Test Item Value Reference Range Interpretation Comme nts POC-GLUCOSE METER ([facility]) 124 mg/dL 70-110 H : TESTED AT [facility] [address] [facility] (test code = 1538) [facility], [address]: Sanitation Truck Cleaner/Techni janel ID = [id number] for RAY ERVIN POCT-GLUCOSE [id number] 12:55:00 Test Item Value Reference Range Interpretation Comments POC-GLUCOSE METER 189 mg/dL 70-110 H : [facility] ([facility]) (test code = [facility], 153) [address]: Sanitation Truck Cleaner/Techni janel ID = [id number] for SERGIO BETH, SHELLE POCT-GLUCOSE [id number] 08:26:00 Test Item Value Reference Range Interpretation Comments POC-GLUCOSE METER 123 mg/dL 70-110 H : TESTED A [facility] [address] ([facility]) (test code = [facility], 153) [address]: Sanitation Truck Cleaner/Techni janel ID = [id number] for LUPE WHITETALIB ESCOBARKEZIA POCT-GLUCOSE [id number] 21:31:00 Test Item Value Reference Range Interpretation Comments POC-GLUCOSE METER 176 mg/dL 70-110 H : Notified RN/MD: ([facility]) (test code = TESTED AT [place] [address] 153) [facility], [address]: Sanitation Truck Cleaner/Techni janel ID = [id number] for ZAYDA LANDON ICE LITHIUM [id number] 11:45:00 Test Item Value Reference Range Interpretation Comments LITHIUM LEVEL ([facility]) (test code 0.6 mmol/L 0.8-1.2 L = 630) POCT-GLUCOSE [id number] 17:15:00 Test Item Value Reference Range Interpretation Comments POC-GLUCOSE METER 128 mg/dL 70-110 H : TESTED A [facility] [address] ([facility]) (test code = [facility], 153) [address]: Sanitation Truck Cleaner/Techni janel ID = [id number] for SERGIO BEHT, SHELLE POCT-GLUCOSE [id number] 12:20:00 Test Item Value Reference Range Interpretation Comments POC-GLUCOSE METER 108 mg/dL 70-110 : [facility] ([facility]) (test code = [facility], 1538) [address]: Sanitation Truck Cleaner/Techni janel ID = [id number] for Sm ith, Elaina POCT-GLUCOSE [id number] 08:34:00 Test Item Value Reference Range Interpretation Comments POC-GLUCOSE METER 115 mg/dL 70-110 H : TESTED A T [facility] 6720 (BEAKER) (test code = [facility], 1538) [address]: Sanitation Truck Cleaner/Techni janel ID = [id number] for Sm ith, Elaina POCT-GLUCOSE [id number] 20:59:00 Test Item Value Reference Range Interpretation Comments POC-GLUCOSE METER 152 mg/dL 70-110 H : TESTED A T [facility] 67[address] (BEAKER) (test code = [facility], 1538) [address]: Sanitation Truck Cleaner/Techni janel ID = [id number] for BA ISH, EMBER POCT-GLUCOSE [id number] 17:29:00 Test Item Value Reference Range Interpretation Comments POC-GLUCOSE METER 103 mg/dL 70-110 : TESTED A T [facility] [address] (BEAKER) (test code [facility], = 1538) [address]: Sanitation Truck Cleaner/Techni janel ID = [id number] for TSEG GAI, TSIGHEREDA POCT-GLUCOSE [id number] 12:22:00 Test Item Value Reference Range Interpretation Comments POC-GLUCOSE METER 204 mg/dL 70-110 H : Notified RN/MD: [facility] AT [facility] [address] [facility] = 1538) [facility], 7[address] 30: Sanitation Truck Cleaner/Techni janel ID = [id number] for TSEG GAI, TSIGHEREDA POCT-GLUCOSE [id number] 08:43:00 Test Item Value Reference Range Interpretation Comments POC-GLUCOSE METER 132 mg/dL 70-110 H : TESTED A T [facility] [address] (BEAKER) (test code [facility], = 1538) [address]: Sanitation Truck Cleaner/Techni janel ID = [id number] for TSEG GAI, TSIGHEREDA POCT-GLUCOSE [id number] 07:13:00 Test Item Value Reference Range Interpretation Comments POC-GLUCOSE METER 200 mg/dL 70-110 H : TESTED A T [facility] [address] (BEAKER) (test code = [facility], 1538) [address]: Sanitation Truck Cleaner/Techni janel ID = [id number] for OC FELICIA, KULDIP POCT-GLUCOSE [id number] 16:54:00 Test Item Value Reference Range Interpretation Comments POC-GLUCOSE METER 103 mg/dL 70-110 : TESTED A T [facility] [address] (BEAKER) (test code = [facility], [facility]) [address]: Sanitation Truck Cleaner/Techni janel ID = [id number] for HU NT, KATIE POCT-GLUCOSE [id number] 11:03:00 Test Item Value Reference Range Interpretation Comments POC-GLUCOSE METER 155 mg/dL 70-110 H : TESTED A T [facility] 67[address] (BEAKER) (test code = [facility], [facility]) [address]: Sanitation Truck Cleaner/Techni janel ID = [id number] for HU NT, KATIE POCT-GLUCOSE [id number] 07:06:00 Test Item Value Reference Range Interpretation Comments POC-GLUCOSE METER 129 mg/dL 70-110 H : TESTED A T [facility] [address] (BEAKER) (test code = [facility], [facility]) [address]: Sanitation Truck Cleaner/Techni janel ID = [id number] for HU NT, KATIE POCT-GLUCOSE [id number] 20:59:00 Test Item Value Reference Range Interpretation Comments POC-GLUCOSE METER 167 mg/dL 70-110 H : TESTED A T [facility] [address] (BEAKER) (test code = [facility], [facility]) [address]: Sanitation Truck Cleaner/Techni janel ID = [id number] for ALISSA BE, SAUDATU POCT-GLUCOSE [id number] 17:53:00 Test Item Value Reference Range Interpretation Comments POC-GLUCOSE METER 185 mg/dL 70-110 H : TESTED A T [facility] 67[address] (BEAKER) (test code = [facility], [facility]) [address]: Sanitation Truck Cleaner/Techni janel ID = [id number] for Audi thew, Remyia POCT-GLUCOSE [id number] 11:18:00 Test Item Value Reference Range Interpretation Comments POC-GLUCOSE METER 145 mg/dL 70-110 H : TESTED A T [facility] [address] (BEAKER) (test code = [facility], [facility]) [address]: Sanitation Truck Cleaner/Techni janel ID = [id number] for Audi ashley, Ingrisyia POCT-GLUCOSE [id number] 07:23:00 Test Item Value Reference Range Interpretation Comments POC-GLUCOSE METER 105 mg/dL 70-110 : TESTED A T [facility] 67[address] (BEAKER) (test code = [facility] [place] [facility], 1538) [address]: Sanitation Truck Cleaner/Techni janel ID = [id number] for Audi ashley, Remyia BASIC METABOLIC [id number] 04:32:00 Test Item Value Reference Range Interpretation [...] S NOT APPLICABLE FOR DIALYSIS PATIEN TS. Sanitation Truck Cleaner ID - ZAHRA MCBC W/PLT COUNT & AUTO [id number] 04:10:00 Test Item Value Reference Range Interpretation [...] PERCENT (BEAKER) (test code = 2801) POCT-GLUCOSE [id number] 21:41:00 Test Item Value Reference Range Interpretation Comments POC-GLUCOSE METER 130 mg/dL 70-110 H : TESTED A T [facility] 67[address] (BEAKER) (test code = [place], 1538) [address]: Sanitation Truck Cleaner/Techni janel ID = [id number] for UYEN MINA POCT-GLUCOSE [id number] 17:17:00 Test Item Value Reference Range Interpretation Comments POC-GLUCOSE METER 107 mg/dL 70-110 : TESTED A T [facility] [address] (BEAKER) (test code = [facility], 1538) [address]: Sanitation Truck Cleaner/Techni janel ID = [id number] for JONAH WARNER LITHIUM [id number] 13:12:00 Test Item Value Reference Range Interpretation Comments LITHIUM LEVEL (BEAKER) (test code 0.5 mmol/L 0.8-1.2 L = 630) POCT-GLUCOSE [id number] 07:24:00 Test Item Value Reference Range Interpretation Comments POC-GLUCOSE METER 124 mg/dL 70-110 H : TESTED A T [facility] [address] (BEAKER) (test code = [facility], 1538) [address]: Sanitation Truck Cleaner/Techni janel ID = [id number] for JONAH WARNER POCT-GLUCOSE [id number] 21:34:00 Test Item Value Reference Range Interpretation Comments POC-GLUCOSE METER 174 mg/dL 70-110 H : [facility] (test code = [facility], 1538) [address]: Sanitation Truck Cleaner/Techni janel ID = [id number] for DE NNIS, BING POCT-GLUCOSE [id number] 18:20:00 Test Item Value Reference Range Interpretation Comments POC-GLUCOSE METER 125 mg/dL 70-110 H : TESTED A T [facility] [address] (BEAKER) (test code = [facility], 1538) [address]: Sanitation Truck Cleaner/Techni janel ID = [id number] for HI DALGO, AGLAE POCT-GLUCOSE [id number] 12:47:00 Test Item Value Reference Range Interpretation Comments POC-GLUCOSE METER 100 mg/dL 70-110 : TESTED A T [facility] [address] (BEAKER) (test code = [facility], 1538) [address]: Sanitation Truck Cleaner/Techni janel ID = [id number] for HI DALGO, AGLAE COMPREHENSIVE METABOLIC [id number] 04:30:00 Test Item Value Reference Range Interpretation [...] S NOT APPLICABLE FOR DIALYSIS PATIEN TS. Sanitation Truck Cleaner ID - PIAYA LCBC W/PLT COUNT & AUTO [id number] 03:57:00 Test Item Value Reference Range Interpretation [...] PERCENT (BEAKER) (test code = 2801) POCT-GLUCOSE [id number] 21:19:00 Test Item Value Reference Range Interpretation Comments POC-GLUCOSE METER 111 mg/dL 70-110 H : TESTED A T [facility] 67[address] (BEAKER) (test code = [facility], 153) [address]: Sanitation Truck Cleaner/Techni janel ID = [id number] for Neda Pineda POCT-GLUCOSE [id number] 17:31:00 Test Item Value Reference Range Interpretation Comments POC-GLUCOSE METER 106 mg/dL 70-110 : TESTED A T [facility] 67[address] (BEAKER) (test code = [facility], 153) [address]: Sanitation Truck Cleaner/Techni janel ID = [id number] for Audi thew, Remyia BLOOD [id number] 14:00:00 Test Item Value Reference Range Interpretation Comments CULTURE (BEAKER) (test No growth in 5 days code = 1095) POCT-GLUCOSE [id number] 12:14:00 Test Item Value Reference Range Interpretation Comments POC-GLUCOSE METER 113 mg/dL 70-110 H : TESTED A T [facility] 67[address] (BEAKER) (test code = [facility], 1538) [address]: Sanitation Truck Cleaner/Techni janel ID = [id number] for Audi ashley, Stephaniea POCT-GLUCOSE [id number] 08:06:00 Test Item Value Reference Range Interpretation Comments POC-GLUCOSE METER 133 mg/dL 70-110 H : TESTED A T [facility] [address] (BEAKER) (test code = [facility], 1538) [address]: Sanitation Truck Cleaner/Techni janel ID = [id number] for Audi ashley, Stephaniea COMPREHENSIVE METABOLIC [id number] 05:57:00 Test Item Value Reference Range Interpretation [...] S NOT APPLICABLE FOR DIALYSIS PATIEN TS. Sanitation Truck Cleaner ID - PIAYA LCBC W/PLT COUNT & AUTO [id number] 05:15:00 Test Item Value Reference Range Interpretation [...] PERCENT (BEAKER) (test code = 2801) POCT-GLUCOSE [id number] 21:12:00 Test Item Value Reference Range Interpretation Comments POC-GLUCOSE METER 197 mg/dL 70-110 H : TESTED A T [facility] 67[address] (BEAKER) (test code = [facility], 1538) [address]: Sanitation Truck Cleaner/Techni janel ID = [id number] for SUMMER OSWALD BLOOD [id number] 20:00:00 Test Item Value Reference Range Interpretation Comments CULTURE (BEAKER) (test No growth in 5 days code = 1095) RESPIRATORY PANEL [id number] 19:01:00 Test Item Value Reference Range Interpretation [...] decisions. This sample was tested at the [facility] Molecular Diagnostics Laboratory using the NeemaArray Respiratory Panel. It is FDA cleared and has been verified and approved by the [facility] Molecular Diagnostics Laboratory for clinical [...] MDReport Verified Date/Time: 04/06/2020 16:45:26 Reading Location: [address] Reading Room [id number] 14:25:00 Test Item Value Reference Range Interpretation Comments PARTIAL THROMBOPLASTIN TIME 31.0 seconds 22.5-36.0 (BEAKER) (test code = 760) 6 hours after starting heparin infusion and as indicated per sliding scalePOCT- GLUCOSE [id number] 12:08:00 Test Item Value Reference Range Interpretation Comments POC-GLUCOSE METER 135 mg/dL 70-110 H : TESTED A T [facility] 6720 (BEAKER) (test code = [facility], 1538) [address]: Sanitation Truck Cleaner/Techni janel ID = [id number] for PO IRIER, JEREMY POCT-GLUCOSE [id number] 07:52:00 Test Item Value Reference Range Interpretation Comments POC-GLUCOSE METER 128 mg/dL 70-110 H : TESTED A T [facility] 6720 (BEAKER) (test code = [facility], 1538) [address]: Sanitation Truck Cleaner/Techni janel ID = [id number] for PO IRIER, JEREMY COMPREHENSIVE METABOLIC [id number] 04:36:00 Test Item Value Reference Range Interpretation [...] S NOT APPLICABLE FOR DIALYSIS PATIEN TS. Sanitation Truck Cleaner ID - PIAYA [id number] 04:10:00 Test Item Value Reference Range Interpretation Comments PARTIAL THROMBOPLASTIN TIME 29.3 seconds 22.5-36.0 (BEAKER) (test code = 760) Prior to initiating heparinCBC W/PLT COUNT & AUTO [id number] 04:02:00 Test Item Value Reference Range Interpretation [...] code = 2801) URINALYSIS W/ REFLEX URINE [id number] 00:18:00 Test Item Value Reference Range Interpretation [...] = 516) SOURCE(BEAKER) (test code = 2795) Sanitation Truck Cleaner ID - [auto]Sanitation Truck Cleaner ID - hankPOCT-GLUCOSE [id number] 23:31:00 Test Item Value Reference Range Interpretation Comments POC-GLUCOSE METER 137 mg/dL 70-110 H : TESTED A T [facility] 6720 (BEAKER) (test code = [facility] [place], 1538) [address]: Sanitation Truck Cleaner/Techni janel ID = [id number] for CH UA, HENRISON [id number] 19:18:00 Test Item Value Reference Range Interpretation Comments PHOSPHORUS (BEAKER) (test code = 2.9 mg/dL 2.3-4.7 604) Sanitation Truck Cleaner ID - [id number] 19:18:00 Test Item Value Reference Range Interpretation Comments MAGNESIUM (BEAKER) (test code = 1.6 mg/dL 1.6-2.6 627) Sanitation Truck Cleaner ID - DBBASIC METABOLIC [id number] 19:18:00 Test Item Value Reference Range Interpretation [...] S NOT APPLICABLE FOR DIALYSIS PATIEN TS. Sanitation Truck Cleaner ID - [id number] 19:09:00 Test Item Value Reference Range Interpretation [...] thrombosis is within 95-100% range. SARS-COV2/RT-PCR ([facility])2020-04-05 19:09:00 Test Item Value Reference Range Interpretation Comments SARS-COV2/RT-PCR (test Not Detected Not Detected, Negative code = 7557665) SARS-COV-2 PERFORMING LAB [facility] (test code = 3956092) Negative results do not preclude SARS-CoV-2 infection [...] of the Act.Fact Sheet for Healthcare Pro viders:https://www.Peoplematics.[employer]/Documents/Xpert%20Xpress%20SARS%20CoV-2/Fact%20Sh eets/302-3802%64PDWX-WEY-1%20HEALTHCARE%20PROVIDERS%20FACT%20SHEET.pdfFact Sheet for Healthcare Patients:https://www.LearnStreet/Documents/Xpert%20Xpress%20SARS%20CoV-2/Fact%20Sheets/302-3801%20SARS-COV -2%20PATIENT%20FACT%20SHEET.pdfPerforming Laboratory:[address]fab[address] [place], [place] [address]CDQ W/PLT COUNT & AUTO DIFFERENTIAL 2020-04-05 19:01:00 [...] = 2801) RAD, CHEST, 1 VIEW, NON [id number] 17:16:00Reason for exam:->sob, feverShould this be performed at the bedside?->YesFINAL REPORT TECHNIQUE: Frontal chest radiograph dated 04/05/2020. CLINICAL HISTORY: SOB, Fever COMPARISON STUDY: Chest radiograph dated 04/01/2020 IMPRESSION:Endotracheal and enteric tubes have been removed. Lungs are clear. No pleural effusion or pneumothorax. Cardiomediastinalsilhouette is normal in size. No pulmonary edema. No fracture. Signed: Douglas Hale MDReport V erified Date/Time: 04/05/2020 17:16:45 Reading Location: [facility] C0[facility] Transitional Reading Room POCT-GLUCOSE [id number] 17:04:00 Test Item Value Reference Range Interpretation Comments POC-GLUCOSE METER 128 mg/dL 70-110 H : TESTED A T [facility] 6720 (BEAKER) (test code = [facility] [place], 1538) [address]: Sanitation Truck Cleaner/Techni janel ID = [id number] for RO DGERS, JAMECA LACTIC ACID, [id number] 16:47:00 Test Item Value Reference Range Interpretation Comments LACTATE BLOOD VENOUS (2) (BEAKER) 1.24 mmol/L 0.50-2.20 (test code = 2872) Sanitation Truck Cleaner ID - DBPOCT-GLUCOSE [id number] 11:33:00 Test Item Value Reference Range Interpretation Comments POC-GLUCOSE METER 92 mg/dL 70-110 : TESTED A T [facility] 6720 (BEAKER) (test code = [facility], 1538) 00382: Sanitation Truck Cleaner/Techni janel ID = [id number] for RODG ERS, JAMECA POCT-GLUCOSE [id number] 08:34:00 Test Item Value Reference Range Interpretation Comments POC-GLUCOSE METER 136 mg/dL 70-110 H : TESTED A T [facility] 6720 (BEAKER) (test code = [facility], 1538) 87886: Sanitation Truck Cleaner/Techni janel ID = [id number] for RO DGERS, JAMECA POCT-GLUCOSE [id number] 21:09:00 Test Item Value Reference Range Interpretation Comments POC-GLUCOSE METER 93 mg/dL 70-110 : TESTED A T [facility] 6720 (BEAKER) (test code = [facility], 1538) 21755: Sanitation Truck Cleaner/Techni janel ID = [id number] for DILCIA Z, NADINA POCT-GLUCOSE [id number] 18:02:00 Test Item Value Reference Range Interpretation Comments POC-GLUCOSE METER 84 mg/dL 70-110 : TESTED A T [facility] 6720 (BEAKER) (test code = [facility], 1538) 867[address]: Sanitation Truck Cleaner/Techni janel ID = [id number] for BROW NGONZALEZLE HEPATIC FUNCTION [id number] 16:01:00 Test Item Value Reference Range Interpretation [...] (test code = 40 U/L 6-55 347) Sanitation Truck Cleaner ID - NTPCBC W/PLT COUNT & AUTO [id number] 15:40:00 Test Item Value Reference Range Interpretation [...] PERCENT (BEAKER) (test code = 2801) POCT-GLUCOSE [id number] 11:53:00 Test Item Value Reference Range Interpretation Comments POC-GLUCOSE METER 94 mg/dL 70-110 : TESTED A T [facility] 6720 (BEAKER) (test code = [facility], 1538) 37758: Sanitation Truck Cleaner/Techni janel ID = [id number] for BROW N, DARYA POCT-GLUCOSE [id number] 09:06:00 Test Item Value Reference Range Interpretation Comments POC-GLUCOSE METER 114 mg/dL 70-110 H : TESTED A T [facility] 6720 (BEAKER) (test code = [facility] AbilTo [facility], 1538) [address]38[address]: Sanitation Truck Cleaner/Techni janel ID = [id number] for BR OWN, DARYA [id number] 06:19:00 Test Item Value Reference Range Interpretation Comments PHOSPHORUS (BEAKER) (test code = 3.8 mg/dL 2.3-4.7 604) Sanitation Truck Cleaner ID Caroline SWEENEY [id number] 06:19:00 Test Item Value Reference Range Interpretation Comments MAGNESIUM (BEAKER) (test code = 1.8 mg/dL 1.6-2.6 627) Sanitation Truck Cleaner ID Caroline SWEENEY MBASIC METABOLIC [id number] 06:19:00 Test Item Value Reference Range Interpretation [...] S NOT APPLICABLE FOR DIALYSIS PATIEN TS. Sanitation Truck Cleaner ID - ZAHRA MCBC W/PLT COUNT & AUTO [id number] 05:56:00 Test Item Value Reference Range Interpretation [...] PERCENT (BEAKER) (test code = 2801) POCT-GLUCOSE [id number] 22:05:00 Test Item Value Reference Range Interpretation Comments POC-GLUCOSE METER 110 mg/dL 70-110 : TESTED A T [facility] 6720 (BEAKER) (test code = [facility], 153) 79247: Sanitation Truck Cleaner/Techni janel ID = [id number] for SC MS, JOSE C POCT-GLUCOSE [id number] 18:00:00 Test Item Value Reference Range Interpretation Comments POC-GLUCOSE METER 127 mg/dL 70-110 H : TESTED A T [facility] 6720 (BEAKER) (test code = [facility], 1538) 17737: Sanitation Truck Cleaner/Techni janel ID = [id number] for Sm ith, Elaina POCT-GLUCOSE [id number] 11:47:00 Test Item Value Reference Range Interpretation Comments POC-GLUCOSE METER 100 mg/dL 70-110 : TESTED A T [facility] 6720 (BEAKER) (test code = [facility] AbilTo [facility], 1538) 08[address]: Sanitation Truck Cleaner/Techni janel ID = [id number] for Sm ith, Elaina HEMOGLOBIN [id number] 10:02:00 Test Item Value Reference Range Interpretation Comments HEMOGLOBIN A1C (BEAKER) (test code = 6.0 % 4.3-6.1 368) POCT-GLUCOSE [id number] 07:38:00 Test Item Value Reference Range Interpretation Comments POC-GLUCOSE METER 115 mg/dL 70-110 H : TESTED A T [facility] 6720 (BEAKER) (test code = [facility], 1538) 50941: Sanitation Truck Cleaner/Techni janel ID = [id number] for Elaina Connelly U/S, ABDOMINAL, [id number] 06:20:00Abdomen limited area? Add comment if clarification [...] Leighton Walker MDReport Verified Date/Time: 04/03/2020 06:20:42 [id number] 04:33:00 Test Item Value Reference Range Interpretation Comments PHOSPHORUS (BEAKER) (test code = 3.3 mg/dL 2.3-4.7 604) Sanitation Truck Cleaner ID - DELFINO [id number] 04:33:00 Test Item Value Reference Range Interpretation Comments MAGNESIUM (BEAKER) (test code = 1.8 mg/dL 1.6-2.6 627) Sanitation Truck Cleaner ID - DELFINO LBASIC METABOLIC [id number] 04:33:00 Test Item Value Reference Range Interpretation [...] S NOT APPLICABLE FOR DIALYSIS PATIEN TS. Sanitation Truck Cleaner ID - PIAYA LHEPATIC FUNCTION [id number] 04:33:00 Test Item Value Reference Range Interpretation [...] (test code = 32 U/L 6-55 347) Sanitation Truck Cleaner ID - PIAYA LCBC W/PLT COUNT & AUTO [id number] 04:08:00 Test Item Value Reference Range Interpretation [...] PERCENT (BEAKER) (test code = 2801) POCT-GLUCOSE [id number] 21:20:00 Test Item Value Reference Range Interpretation Comments POC-GLUCOSE METER 144 mg/dL 70-110 H : Notified RN/MD: (CHANG) (test code = TESTED AT [facility] 6720 1538) [facility], [address]: Sanitation Truck Cleaner/Techni janel ID = [id number] for ZAYDA LANDON MR, BRAIN, WITHOUT [id number] 20:37:00FINAL REPORT MR, BRAIN, WITHOUT CONTRAST INDICATION: [...] Signed: Parvin More Verified Date/Time: 04/02/2020 20:37:03 -GLUCOSE [id number] 17:29:00 Test Item Value Reference Range Interpretation Comments POC-GLUCOSE METER 131 mg/dL 70-110 H : TESTED A T [facility] 6720 (BEAKER) (test code = [facility], 1538) 60[address]: Sanitation Truck Cleaner/Techni janel ID = [id number] for KATIE ZAMORA LITHIUM [id number] 16:31:00 Test Item Value Reference Range Interpretation Comments LITHIUM LEVEL (BEAKER) < mmol/L 0.8-1.2 L This test was performed (test code = 630) at:[facility] , [facility], [address] [place] [address] RAPID DRUG SCREEN, [id number] 13:58:00 Test Item Value Reference Range Interpretation [...] situations. Chain of custody not maintained. Some leua-pkk-jzsfido medications, as well as adulterants, may cause inaccurate results. Clinical correlation should be applied. A more comprehensivedrug screen or confirmation of a detected drug may be performed upon request.Sanitation Truck Cleaner ID - ADMINEEG W VID [id number] HR CONTINUOUS MONITORING (VEEG)2020-04-02 13:28:00Reason for exam:- >SEIZURES Should this be performed at the bedside?->YesDate of EE04/01/2020 to 04/02/2020 DATE OF REPORT: 04/02/2020 ACC: [id number] EEG Number: [id number] Start time: 04/01/2020 @ 14:41 PM Stop time: 04/02/2020 @ 11:30 AM ICD-10: R56.9 CPT Code: 48486 HISTORY: 54 y.o. Female with ADHD, bipolar [...] its interpretation. Elvie Mckay MD Epilepsy Attending [id number] 12:55:00 Test Item Value Reference Range Interpretation Comments AMMONIA (BEAKER) (test code = 348) 60 mol/L 18-72 Sanitation Truck Cleaner ID - ABILIO EPOCT-GLUCOSE [id number] 11:12:00 Test Item Value Reference Range Interpretation Comments POC-GLUCOSE METER 165 mg/dL 70-110 H : TESTED A T [facility] 6720 (BEAKER) (test code = [facility], 1538) 35246: Sanitation Truck Cleaner/Techni janel ID = [id number] for KATIE ZAMORA POCT-GLUCOSE [id number] 08:44:00 Test Item Value Reference Range Interpretation Comments POC-GLUCOSE METER 97 mg/dL 70-110 : TESTED A T [facility] 6720 (BEAKER) (test code = [facility] AbilTo [facility], 1538) [address]: Sanitation Truck Cleaner/Techni janel ID = [id number] for HARIS FUCHS BASIC METABOLIC [id number] 05:35:00 Test Item Value Reference Range Interpretation [...] S NOT APPLICABLE FOR DIALYSIS PATIEN TS. Sanitation Truck Cleaner ID - LACBC W/PLT COUNT & AUTO [id number] 05:04:00 Test Item Value Reference Range Interpretation [...] PERCENT (BEAKER) (test code = 2801) POCT-GLUCOSE [id number] 02:05:00 Test Item Value Reference Range Interpretation Comments POC-GLUCOSE METER 116 mg/dL 70-110 H : TESTED A T [facility] 6720 (BEAKER) (test code = [facility], 1538) 939[address]: Sanitation Truck Cleaner/Techni janel ID = [id number] for Neda Pineda T4, [id number] 20:56:00 Test Item Value Reference Range Interpretation Comments FREE T4 (BEAKER) (test code = 655) 1.19 ng/dL 0.70-1.48 Sanitation Truck Cleaner ID - NTPPOCT-GLUCOSE [id number] 20:54:00 Test Item Value Reference Range Interpretation Comments POC-GLUCOSE METER 99 mg/dL 70-110 : TESTED A T [facility] 6720 (BEAKER) (test code = [facility], 153) [address]: Sanitation Truck Cleaner/Techni janel ID = [id number] for DUNG DOWLING TSH/FREE T4 IF [id number] 20:18:00 Test Item Value Reference Range Interpretation Comments THYROID STIMULATING HORMONE 0.057 uIU/mL 0.350-4.940 L (BEAKER) (test code = 772) Sanitation Truck Cleaner ID - NTPVITAMIN B12 AND [id number] 20:07:00 Test Item Value Reference Range Interpretation Comments VITAMIN B12 (BEAKER) (test code = 929 pg/mL 213-816 H 774) FOLATE (BEAKER) (test code = 362) 15.80 ng/mL >=7.00 Sanitation Truck Cleaner ID - NTPHEPATIC FUNCTION [id number] 19:32:00 Test Item Value Reference Range Interpretation [...] (test code = 31 U/L 6-55 347) Sanitation Truck Cleaner ID - NTPPOCT-GLUCOSE [id number] 18:09:00 Test Item Value Reference Range Interpretation Comments POC-GLUCOSE METER 96 mg/dL 70-110 : TESTED A T [facility] 6720 ([facility]) (test code = [facility], 1538) [address]76: Sanitation Truck Cleaner/Techni janel ID = [id number] for SLY DUBOSE POCT-GLUCOSE [id number] 12:33:00 Test Item Value Reference Range Interpretation Comments POC-GLUCOSE METER 102 mg/dL 70-110 : TESTED A T [facility] 6720 (AKER) (test code = [facility], 1538) 39058: Sanitation Truck Cleaner/Techni janel ID = [id number] for JOSEPHINE HOOVER TROPONIN [id number] 07:53:00 Test Item Value Reference Range Interpretation [...] failure, acidosis, acute neurological disease, and persistent tachyarrhythmia.Sanitation Truck Cleaner ID - NTPSARS-COV2/RT-PCR ([facility])2020-04-01 06:29:00 Test Item Value Reference Range Interpretation Comments SARS-COV2/RT-PCR (test Not Detected Not Detected, Negative code = 9272763) SARS-COV-2 PERFORMING LAB [facility] (test code = 9015436) Negative results do not preclude SARS-CoV-2 infection [...] of the Act.Fact Sheet for Healthcare Pro viders:https://www.[employer]/Documents/Xpert%20Xpress%20SARS%20CoV-2/Fact%20Sh eets/3023802%86VJLM-MVC-0%20HEALTHCARE%20PROVIDERS%20FACT%20SHEET.pdfFact Sheet for Healthcare Patients:https://www.LearnStreet/Documents/Xpert%20Xpress%20SARS%20CoV-2/Fact%20Sheets/3023801%20SARS-COV -2%20PATIENT%20FACT%20SHEET.pdfPerforming Laboratory:[place] [address], [place] [address]OLF W/PLT COUNT & AUTO DIFFERENTIAL 2020-04-01 05:56:00 [...] code = 2801) URINALYSIS W/ REFLEX URINE [id number] 05:55:00 Test Item Value Reference Range Interpretation [...] = 1584) SOURCE(BEAKER) (test code = 2795) Sanitation Truck Cleaner ID - [auto]Sanitation Truck Cleaner ID - [id number] 05:42:00 Test Item Value Reference Range Interpretation Comments PHOSPHORUS (BEAKER) (test code = 3.0 mg/dL 2.3-4.7 604) Sanitation Truck Cleaner ID - ZAHRA [id number] 05:42:00 Test Item Value Reference Range Interpretation Comments MAGNESIUM (BEAKER) (test code = 2.1 mg/dL 1.6-2.6 627) Sanitation Truck Cleaner ID - ZAHRA MBASIC METABOLIC [id number] 05:42:00 Test Item Value Reference Range Interpretation [...] S NOT APPLICABLE FOR DIALYSIS PATIEN TS. Sanitation Truck Cleaner ID - ZAHRA MCREATINE KINASE (CK)2020-04-01 05:42:00 Test Item Value Reference Range Interpretation Comments CREATINE KINASE TOTAL (BEAKER) (test 79 U/L 29-200 code = 380) Sanitation Truck Cleaner ID - ZAHRA [id number] 05:34:00 Test Item Value Reference Range Interpretation [...] mechanical heart valves.RAD, CHEST, 1 VIEW, NON [id number] 05:12:00Reason for exam:->post intubationIs the patient ?->UnknownFINAL [...] Leighton Walker MDReport Verified Date/Time: 04/01/2020 05:12:05 POC Glucose, [id number] 05:26:00 Test Item Value Reference Range Interpretation Comments POC Glucose (test 136 mg/dL 70-115 H Notify RN or MDIf you code = POCGLUC) consider you r patient critically ill, the [place] Accu-Chek InformII metershould not be used for Glucose determinations. Draw a venous Glucose and send to the Main Lab for Analysis. [id number] 08:15:00 Test Item Value Reference Range Interpretation Comments [place] (test code = LI) 0.44 mmol/L 0.6-1.2 L POC Glucose, [id number] 05:37:00 Test Item Value Reference Range Interpretation Comments POC Glucose (test 134 mg/dL 70-115 H If you con shuttle preparation supervisor your code = POCGLUC) patient crit ically ill, the [place] Accu- Chek InformII meters hould not be used for Glu cose determinations. Draw a venous Glucose and send to the Main Lab for Analysis. POC Glucose, [id number] 07:28:00 Test Item Value Reference Range Interpretation Comments POC Glucose (test 128 mg/dL 70-115 H If you con shuttle preparation supervisor your code = POCGLUC) patient crit ically ill, the [place] Accu- Chek InformII meters hould not be used for Glu cose determinations. Draw a venous Glucose and send to the Main Lab for Analysis. POC Glucose, [id number] 20:18:00 Test Item Value Reference Range Interpretation Comments POC Glucose (test 121 mg/dL 70-115 H If you con shuttle preparation supervisor your code = POCGLUC) patient crit ically ill, the [place] Accu- Chek InformII meters hould not be used for Glu cose determinations. Draw a venous Glucose and send to the Main Lab for Analysis. BHCG, Serum, [id number] 22:36:00 Test Item Value Reference Range Interpretation Comments Preg Qual [Se] (test code = BSHCG) Negative Negative N POC Glucose, [id number] 15:14:00 Test Item Value Reference Range Interpretation Comments POC Glucose (test 117 mg/dL 70-115 H If you con shuttle preparation supervisor your code = POCGLUC) patient crit ically ill, the [place] Accu- Chek InformII meters hould not be used for Glu cose determinations. Draw a venous Glucose and send to the Main Lab for Analysis.
[2021-04-25] MEDS ORDERED: ACETAMINOPHEN 500 MG TAB ONE (20:58)
--- NOTE | 2021-04-25 21:00 | RAD REPORT ---
EXAM DESCRIPTION: RAD - Chest Single View - 04/25/2021 8:42 pm CLINICAL HISTORY: SWELLINGshortness of breath COMPARISON: Portable February 17 TECHNIQUE: AP portable chest image was obtained 04/25/2021 8:42 pm . FINDINGS: No focal lung parenchymal process. Portable technique and body habitus accentuate the lung markings. Heart and vasculature are normal. No measurable pleural effusion and no pneumothorax. No a cute bony abnormality seen. No acute aortic findings suspected. IMPRESSION: No acute cardiopulmonary process.
[2021-04-25 21:21] LABS: Absolute Lymphocytes (CBC) 0.9 K/uL (0.7-4.9); Basophils % 0.9 % (0-1.3); Hematocrit 37.5 % (36.0-45.0); MPV 10.3 fL (7.6-11.3); RBC Red Blood Cell Count 4.33 M/uL (3.86-4.86)
[2021-04-25 21:23] LABS: Protime INR 1.07
--- NOTE | 2021-04-25 21:35 | ER ---
Nurse's Notes [facility] Name: Wendi Norton Age: 55 yrs Sex: Female : 1965 Arrival Date: 04/25/2021 Time: 19:07 Bed 5 Private MD: Diagnosis: Dental caries;Otalgia;Lower Extremity Swelling Presentation: 04/25 19:16 Coronavirus screen: Client denies travel out of the [place] in the last 14 days. At this ca1 time, the client does not indicate any symptoms associated with coronavirus-19. Ebola Screen: Patient negative for fever greater than or equal to 101.5 degrees Fahrenheit, and additional compatible Ebola Virus Disease symptoms Patient denies exposure to infectious person. Patient denies travel to an Ebola-affected area in the 21 days before illness onset. No symptoms or risks identified at this time. 19:16 Method Of Arrival: Wheelchair ca1 19:17 Chief complaint: Patient states: Sung ear pain x 4 - 5 days. R leg swelling on and off. ca1 Toothache on the R, pain radiating to the R ear. Initial Sepsis Screen: Does the patient meet any 2 criteria? No. Patient's initial sepsis screen is negative. Does the patient have a suspected source of infection? No. Patient's initial sepsis screen is negative. Risk Assessment: Do you want to hurt yourself or someone else? Patient reports no desire to harm self or others. Onset of symptoms was April 25, 2021. 19:17 Acuity: RAUL 3 ca1 Historical: - Allergies: 19:21 No Known Allergies; ca1 - PMHx: 19:21 ADD/ADHD; Asthma; breast cancer- in remission; Bipolar disorder; COPD; Depression; ca1 Diabetes - NIDDM; Diverticulitis; Hepatitis; Pain Management; PTSD; - PSHx: 19:21 Tubal ligation; ca1 - Immunization history:: Client reports receiving the 2nd dose of the Covid vaccine, Client reports receiving the 1st dose of the Covid vaccine, Flu vaccine is up to date. - Social history:: Smoking status: Patient reports the use of cigarette tobacco products, smokes one-half pack cigarettes per day. Screenin:30 Abuse screen: Denies threats or abuse. Nutritional screening: No deficits noted. jb4 Tuberculosis screening: No symptoms or risk factors identified. Fall Risk None identified. Assessment: 19:30 General: Appears in no apparent distress. comfortable, Behavior is calm, cooperative, jb4 appropriate for age. Pain: Complains of pain in mouth Pain does not radiate. Pain currently is 8 out of 10 on a pain scale. Neuro: Level of Consciousness is awake, alert, obeys commands, Oriented to person, place, time, situation. Cardiovascular: Patient's skin is warm and dry. Respiratory: Airway is patent Respiratory effort is even, unlabored, Respiratory pattern is regular, symmetrical. GI: No signs and/or symptoms were reported involving the gastrointestinal system. : No signs and/or symptoms were reported regarding the genitourinary system. EENT: No signs and/or symptoms were reported regarding the EENT system. Derm: Skin is intact, Skin is pink, warm \T\ dry. Musculoskeletal: Circulation, motion, and sensation intact. Range of motion:. 21:00 Reassessment: Patient appears in no apparent distress at this time. Patient and/or jb4 family updated on plan of care and expected duration. Pain level reassessed. Patient is alert, oriented x 3, equal unlabored respirations, skin warm/dry/pink. 21:47 Reassessment: Pt verbalized desire to leave AMA. Informed pt that test were still jb4 pending and that no diagnoses was made. Informed symptoms could worsen up to the point of . Pt verbalized understanding of risk, signed AMA form, ambulated to lobby with steady gait. Vital Signs: 19:17 BP 136 / 83; Pulse 113; Resp 20; Temp 97.3(TE); Pulse Ox 96% on R/A; Weight 90.72 kg ca1 (R); Height 5 ft. 4 in. (162.56 cm) (R); Pain 8/10; 21:30 BP 119 / 84; Pulse 106; Resp 22; Pulse Ox 98% on R/A; jb4 19:17 Body Mass Index 34.33 (90.72 kg, 162.56 cm) ca1 ED Course: 19:07 Patient arrived in ED. cf2 19:19 Triage completed. ca1 19:21 Arm band placed on right wrist. ca1 19:30 Patient has correct armband on for positive identification. Bed in low position. Call jb4 light in reach. Side rails up X 1. Pulse ox on. NIBP on. 19:47 Rommel Samuels MD is Attending Physician. [facility] 20:31 Sunny Waller, RN is Primary Nurse. jb4 20:42 XRAY Chest (1 view) In Process Unspecified. EDMS 21:10 Initial lab(s) drawn, by me, sent to lab. Inserted saline lock: 20 gauge in right jb4 antecubital area, using aseptic technique. Blood collected. 21:24 US Extremity Venous W Compression Sung In Process Unspecified. EDMS 21:30 No provider procedures requiring assistance completed. IV discontinued, intact, jb4 bleeding controlled, No redness/swelling at site. Pressure dressing applied. 21:33 [place] DDS is Referral Physician. [facility] Administered Medications: 20:44 Drug: Tylenol 1000 mg Route: PO; jb4 21:43 Follow up: Response: No adverse reaction jb4 Outcome: 21:30 AMA AMA form signed [facility] 21:30 Condition: unchanged 21:30 Discharge instructions given to patient, Instructed on discharge instructions, Demonstrated understanding of instructions, Prescriptions given X 1. 21:49 Patient left the ED. jb4 Signatures: Dispatcher [employer] EDMS Sunny Waller, RN RN jb4 Betty Aponte RN RN [facility] Evangelina Perez 2 Rommel Samuels MD MD [facility]
--- NOTE | 2021-04-25 21:35 | EDPHYS ---
Physician Documentation [facility] Name: Wendi Norton Age: 55 yrs Sex: Female : 1965 Arrival Date: 04/25/2021 Time: 19:07 Bed 5 Private MD: ED Physician Rommel Samuels HPI: 04/25 20:31 This 55 yrs old Female presents to ER via Wheelchair with complaints of Leg mh7 Swelling. 20:32 The patient presents with swelling. The complaints affect the right leg and left leg. mh7 Context: The problem was sustained at an unknown site, resulted from an unknown cause, Denies any injury, the patient can fully bear weight, the patient is able to ambulate, without difficulty, Problem is a result from a previous injury: No. Onset: The symptoms/episode began/occurred 1 week(s) ago. Modifying factors: The symptoms are alleviated by nothing. the symptoms are aggravated by nothing. Associated signs and symptoms: Pertinent positives: calf tenderness, swelling, Pertinent negatives fever, nausea, numbness, rash, tingling, vomiting, warmth, weakness. Treatment prior to arrival includes: no previous treatment. Severity of symptoms: At their worst the symptoms were moderate, 6 day(s) ago, in the emergency department the symptoms have improved, moderately. Historical: - Allergies: 19:21 No Known Allergies; ca1 - PMHx: 19:21 ADD/ADHD; Asthma; breast cancer- in remission; Bipolar disorder; COPD; Depression; ca1 Diabetes - NIDDM; Diverticulitis; Hepatitis; Pain Management; PTSD; - PSHx: 19:21 Tubal ligation; ca1 - Immunization history:: Client reports receiving the 2nd dose of the Covid vaccine, Client reports receiving the 1st dose of the Covid vaccine, Flu vaccine is up to date. - Social history:: Smoking status: Patient reports the use of cigarette tobacco products, smokes one-half pack cigarettes per day. ROS: 20:32 Constitutional: Negative for fever, chills, and weight loss, Eyes: Negative for injury, mh7 pain, redness, and discharge. 20:32 Neck: Negative for injury, pain, and swelling, Cardiovascular: Negative for chest pain, palpitations, and edema, Respiratory: Negative for shortness of breath, cough, wheezing, and pleuritic chest pain, Abdomen/GI: Negative for abdominal pain, nausea, vomiting, diarrhea, and constipation, Back: Negative for injury and pain, : Negative for injury, bleeding, discharge, and swelling, Skin: Negative for injury, rash, and discoloration, Neuro: Negative for headache, weakness, numbness, tingling, and seizure, Psych: Negative for depression, anxiety, suicide ideation, homicidal ideation, and hallucinations, Allergy/Immunology: Negative for hives, rash, and allergies, Endocrine: Negative for neck swelling, polydipsia, polyuria, polyphagia, and marked weight changes, Hematologic/Lymphatic: Negative for swollen nodes, abnormal bleeding, and unusual bruising. 20:32 ENT: Positive for ear pain, Teeth pain Exam: 20:32 Constitutional: This is a well developed, well nourished patient who is awake, alert, mh7 and in no acute distress. Head/Face: Normocephalic, atraumatic. Eyes: Pupils equal round and reactive to light, extra-ocular motions intact. Lids and lashes normal. Conjunctiva and sclera are non-icteric and not injected. Cornea within normal limits. Periorbital areas with no swelling, redness, or edema. 20:32 Neck: Trachea midline, no thyromegaly or masses palpated, and no cervical lymphadenopathy. Supple, full range of motion without nuchal rigidity, or vertebral point tenderness. No Meningismus. Chest/axilla: Normal chest wall appearance and motion. Nontender with no deformity. No lesions are appreciated. Cardiovascular: Regular rate and rhythm with a normal S1 and S2. No gallops, murmurs, or rubs. Normal PMI, no JVD. No pulse deficits. Respiratory: Lungs have equal breath sounds bilaterally, clear to auscultation and percussion. No rales, rhonchi or wheezes noted. No increased work of breathing, no retractions or nasal flaring. Abdomen/GI: Soft, non-tender, with normal bowel sounds. No distension or tympany. No guarding or rebound. No evidence of tenderness throughout. Back: No spinal tenderness. No costovertebral tenderness. Full range of motion. Skin: Warm, dry with normal turgor. Normal color with no rashes, no lesions, and no evidence of cellulitis. MS/ Extremity: Pulses equal, no cyanosis. Neurovascular intact. Full, normal range of motion. Neuro: Awake and alert, GCS 15, oriented to person, place, time, and situation. Cranial nerves II-XII grossly intact. Motor strength 5/5 in all extremities. Sensory grossly intact. Cerebellar exam normal. Normal gait. Psych: Awake, alert, with orientation to person, place and time. Behavior, mood, and affect are within normal limits. 20:32 ENT: External ear(s): are unremarkable, Ear canal(s): are normal, clear, TM's: are normal, Nose: is normal, Mouth: is normal, Oral mucosa: dry, Posterior pharynx: is normal, Dental exam: dental caries, that is moderate, diffusely, left upper tooth is most prominent, Voice: is normal. Vital Signs: 19:17 BP 136 / 83; Pulse 113; Resp 20; Temp 97.3(TE); Pulse Ox 96% on R/A; Weight 90.72 kg ca1 (R); Height 5 ft. 4 in. (162.56 cm) (R); Pain 8/10; 21:30 BP 119 / 84; Pulse 106; Resp 22; Pulse Ox 98% on R/A; jb4 19:17 Body Mass Index 34.33 (90.72 kg, 162.56 cm) ca1 MDM: 21:30 Differential diagnosis: pedal edema, dental caries, otitis media, otalgia. Data [facility] reviewed: vital signs, nurses notes, old medical records, lab test result(s), CBC, EKG, radiologic studies, plain films. Data interpreted: Pulse oximetry: on room air is 96 %. Interpretation: normal. Counseling: I had a detailed discussion with the patient and/or guardian regarding: the historical points, exam findings, and any diagnostic results supporting the discharge/admit diagnosis, the presence of at least one elevated blood pressure reading (>120/80) during this emergency department visit, lab results, radiology results. Response to treatment: the patient's symptoms have markedly improved after treatment. Refusal of service: The patient/guardian displays adequate decision making capability and despite a detailed discussion of alternatives, benefits, risks, and consequences refuses: ultrasound,refused to wait for test results. 21:34 Patient medically screened. [facility] 04/25 20:04 Order name: Basic Metabolic Panel [facility] 04/25 20:04 Order name: CBC with Diff; Complete Time: 21:24 [facility] 04/25 20:04 Order name: LFT's [facility] 04/25 20:04 Order name: Magnesium [facility] 04/25 20:04 Order name: NT PRO-BNP [facility] 04/25 20:04 Order name: PT-INR; Complete Time: 21:29 [facility] 04/25 20:04 Order name: Troponin (emerg Dept Use Only) [facility] 04/25 20:04 Order name: XRAY Chest (1 view); Complete Time: 21:08 [facility] 04/25 20:04 Order name: EKG; Complete Time: 20:05 [facility] 04/25 20:04 Order name: Cardiac monitoring; Complete Time: 21:29 [facility] 04/25 20:04 Order name: EKG - Nurse/Tech; Complete Time: 21:11 [facility] 04/25 20:04 Order name: IV Saline Lock; Complete Time: 21:11 [facility] 04/25 20:07 Order name: US Extremity Venous W Compression Sung [facility] 04/25 20:04 Order name: Labs collected and sent; Complete Time: 21:11 [facility] 04/25 20:04 Order name: O2 Per Protocol; Complete Time: 20:32 [facility] 04/25 20:04 Order name: O2 Sat Monitoring; Complete Time: 20:32 [facility] Administered Medications: 20:44 Drug: Tylenol 1000 mg Route: PO; elaina 21:43 Follow up: Response: No adverse reaction [email or web address] Disposition: 04/25/21 21:34 Patient has left against medical advice. Impression: Dental caries, Otalgia, Lower Extremity Swelling. - Patients states they are going to Home. - Condition is Stable. - Discharge Instructions: Dental Caries, [id number], Peripheral Edema. - Prescriptions for Clindamycin HCl 300 mg Oral Capsule - take 1 capsule by ORAL route every 6 hours for 10 days; 40 capsule. Follow up: Private Physician; When: 1 - 2 days; Reason: Worsening of condition, Recheck today's complaints, Continuance of care, Re-evaluation by your physician. Follow up: [place] DDS; When: 2 - 3 days; Reason: Worsening of condition, Recheck today's complaints. - Problem is an ongoing problem. - Symptoms have improved. Signatures: Dispatcher [employer] EDSunny Hill, KEYUR RN jb4 Betty Aponte RN RN ca1 Holmes, Maurice, MD MD mh7 Corrections: (The following items were deleted from the chart) 21:43 20:05 Urine Dipstick-Ancillary ordered. [facility] jb4 21:49 21:34 04/25/2021 21:34 Patients has left against medical advice. Impression: Dental jb4 caries; Otalgia; Lower Extremity Swelling. Patient states they are going to Home. Condition is Stable. Follow up: Private Physician; When: 1 - 2 days; Reason: Worsening of condition, Recheck today's complaints, Continuance of care, Re-evaluation by your physician. Follow up: [place]; When: 2 - 3 days; Reason: Worsening of condition, Recheck today's complaints. Problem is an ongoing problem. Symptoms have improved. mh7
[2021-04-25 21:39] LABS: ALT/SGPT 46 U/L (12-78); AST/SGOT 39 U/L (15-37); Albumin 3.3 g/dL (3.4-5.0); Alkaline Phosphatase 191 U/L (45-117); BUN Blood Urea Nitrogen 9 mg/dL (7-18); Bicarbonate 28 mmol/L (21-32); Bilirubin Direct 0.2 mg/dL (0-0.2); Bilirubin Total 0.5 mg/dL (0.2-1.0); Glucose Level 229 mg/dL (74-106); NT PRO-BNP 7 pg/mL (<125); Potassium 4.2 mmol/L (3.5-5.1); Sodium Level 140 mmol/L (136-145); Troponin (Emerg Dept Use Only) < 0.02 ng/mL (0.0-0.045)
[2021-04-25 22:16] VITALS: TEMP 97.3
[2021-04-25 22:18] VITALS: BP 119/84; O2SAT 98
--- NOTE | 2021-04-26 07:26 | RAD REPORT ---
EXAM DESCRIPTION: USExtrem Venous W Compress Bil04/25/2021 9:24 pm CLINICAL HISTORY: Leg swelling COMPARISON: none FINDINGS: The right common femoral and right greater saphenous veins demonstrate phasic signal. Dopp ler demonstrates good flow. The patient refused to continue on with examination IMPRESSION: No evidence of thrombus involving the right common femoral right greater saphenous veins . The remainder of the veins were not evaluated as described above.
--- NOTE | 2021-04-26 09:44 | EKG ---
Test Date: 2021-04-25 Test Time: 20:36:38 Barker Peeler: CARMELITA MEASUREMENT RESULTS: Intervals: Rate: 106 NJ: 124 QRSD: 80 QT: 338 QTc: 448 Cutler: P: 72 NJ: 124 QRS: 66 T: 64 INTERPRETIVE STATEMENTS: Sinus tachycardia Otherwise normal ECG Compared to ECG 02/17/2021 22:45:32 Sinus rhythm no longer present Electronically Signed On 04-26-21 09:43:32 CDT by Keith Aldana
== END 2021-04-25 21:49 | disposition left against medical advice (07) ==
LOC: ER 18:55
DX: R22.43 Localized swelling, mass and lump, lower limb, bilateral (principal); K02.9 Dental caries, unspecified; H92.09 Otalgia, unspecified ear; Z53.29 Procedure and treatment not carried out because of patient's decision for other reasons; F17.210 Nicotine dependence, cigarettes, uncomplicated; F90.9 Attention-deficit hyperactivity disorder, unspecified type; J44.9 Chronic obstructive pulmonary disease, unspecified; Z85.3 Personal history of malignant neoplasm of breast; F31.9 Bipolar disorder, unspecified; E11.9 Type 2 diabetes mellitus without complications; F43.10 Post-traumatic stress disorder, unspecified
CPT/HCPCS: 36415; 71045; 80048; 80076; 83735; 83880; 84484; 85025; 85610; 93005; 93970

== ENCOUNTER 2021-05-03 19:01 | Emergency (ER) | payer OTHER ==
--- OUTSIDE RECORDS SUMMARY | 2021-05-03 19:08 | XMS REPORT | Continuity of Care Document ---
:[address] [facility] t Address [facility] Baker [address] [place] [address] Care Team Providers Name Role Phone JANEEN Primary Care Physician Unavailable Liliana TROUBLE SHOOTING MECHANIC Attending Clinician Harinder BIRCH Attending Clinician Maria M BETANCOURT Attending Clinician Janeen MOYA Attending Clinician Dejan RN, L Attending Clinician Unavailable Fantasma MOYA Attending Clinician Rosa Maria BAER, R Attending Clinician Unavailable Sam BAER Attending Clinician Unavailable JANEEN Attending Clinician Unavailable MARIA M Attending Clinician Unavailable SHERRI Attending Clinician Unavailable UNIQUE Attending Clinician Unavailable MAROK CORDOVA M.D. Attending Clinician Unavailable DENISSE Admitting Clinician Unavailable MARKO CORDOVA M.D., M Admitting Clinician Unavailable Payers Payer Name Policy Type Policy Effective Expiration Source Number Date Date MEDICAREMEDICARE PART A [id number] 2005 MD Hawley AND 00:00:00 [id number] 2004-Hi [id number] , [place] [id number] 2018 MD Juan Antonio melendez TRADITIONALMEDICAID [place] 00:00:00 TRADITIONAL STAR PLUS [id number] esentMedicaid Problems Condition Condition Condition Status Onset Resolution Last Treating Co mments Source Name Details Category Date Date Treatment Clinician Date E-coli UTI E-coli UTI Disease Active [facility] Tobacco Tobacco Disease Active [facility] abuse [facility] 04-04 [facility] Witnessed [...] Disease Active Overview : itis itis 05-29 Formattin Anderso 00:00: g of this n 00 note might be different from the original. 2015:IMPR ESSION:1. Small central disc herniatio n at L2-L3 with minimal indentati on of thethecal sac and mild narrowing of the spinal canal.2. Changes of degenerat rex disc disease and facet degenerat rex diseaseth roughout the lumbar spine as described above. 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 Chronic Chronic Disease Active pain pain 12-07 Anderso 00:00: n 00 Estrogen Estrogen Disease Active 2016-11 [facility] 2-05 [facility] - positive positive 00:00: Medica l status status 00 Center (ER+) (ER+) Malignant Malignant Disease Active 2016-[address] neoplasm neoplasm 2-05 [facility] [place] 00:00: Me dical portion of portion of [...] of Disease Active Overview : hepatitis hepatitis Formattin A nderso C C g of this n note might be different from the original. Per ID team: "She denies blood transfusi on before 1991, but she recalled using dilaudid IV by herself and possible sharing needles." Completed 12 weeks of Harvoni under care of Dr. Manley in January 2019. 528 9 08:25HepC RNA PCR [facility] Undetecte d IU/mL (Undetec jassi) Allergies, Adverse [...] anastrozole Yes Mucinous TAKE 1 MD (ARIMIDEX) 6-08 carcinoma TABLET BY Anderso 1 mg tablet 00:00: of central MOUTH n 00 portion of EVERY DAY left female breast anastrozole 2020- No Mucinous TAKE 1 MD (ARIMIDEX) 4- 06-08 carcinoma TABLET BY Anderso 1 mg tablet 00:00: 00:00 of central MOUTH n 00 :00 portion of EVERY DAY left female breast anastrozole 2019-11- No Mucinous TAKE 1 MD (ARIMIDEX) 2 04-06 carcinoma TABLET BY Anderso 1 mg tablet 00:00: 00:00 of central MOUTH n 00 :00 portion of EVERY DAY left female breast anastrozole 2020-1 2020- No Mucinous TAKE 1 MD (ARIMIDEX) 012 12-07 carcinoma TABLET BY Anderso 1 mg [...] Roxy 8-06 [facility] directed [facility] [place] [facility] Levemir Levemir 2020-0 Yes Lea as [facility] FlexTouch FlexTouch 8-06 Mill[facility] directed [facility] Clinics Pen Leedey Pen Leedey 2020-0 Yes Lea as [facility] 8-06 Millender directed [facility] - [facility] Clinics anastrozole 2020-0 2020- No Mucinous TAKE 1 (ARIMIDEX) 7 10-12 carcinoma TABLET BY Anderso [...] 1-2 MD (VENTOLIN 6-23 puffs by Shahab baum HFA,PROAIR 14:39: mouth n HFA) 90 39 every 4 mcg/puff (four) inhaler hours as needed for wheezing or shortness of breath. anastrozole 2020-0 Yes 1mg QD Take [address] (ARIMIDEX) 6-09 by mouth [facility] - 1 mg tablet 08:45: daily. [facility] 06 Center umeclidiniu 2020-0 Yes 1{puff} QD Inhale [address] [facility] m-vilantero 6-09 puff by Aquiles - L (ANORO 08:45: mouth via [facility] shelley ELLIPTA) 06 inhaler Center 62.5-25 daily. [...] times daily with breakfast and dinner. albuterol 2019-0 2020- No 2{puff} Inhale [address] HFA 6-08 06-08 puffs by Aquiles - (VENTOLIN 00:00: 23:59 mouth via Az dical HFA) 90 00 :00 inhaler Center [...] 00:00: mouth as n 00 needed. busPIRone 2020-0 Yes 1{tbl} Take 1 MD (BUSPAR) 10 1-15 tablet by And erso mg tablet 00:00: mouth 4 n 00 (four) times a day. QUEtiapine 2020-0 Yes 1{tbl} Take 1 MD (SEROquel) 1-15 tablet by Douglas rso 50 mg 00:00: mouth n tablet 00 daily. nystatin 2018-0 Yes Schizophren Apply M D (MYCOSTATIN 3-26 [...] St Millender in the [facility] - morning [facility] ent Clinics Adderall Adderall Yes Lea [address] Millender [facility] Clinics Risperdal Risperdal Yes Lea [address] Millender [facility] Clinics Lovell Lovell Yes Lea (450 mg) [address] Carbonate Carbonate Millender capsule [facility] Clinics Quetiapine Quetiapine Yes Lea [address] Fumarate Fumarate Millender at bedtime [facility]ics Klonopin Klonopin Yes Lea [address] Millender [facility] Procedures This patient has no known procedures. Plan of Care Planned Activity Planned Date Details Comments Source Future Scheduled 2020-04-[address] [facility] - Test 00:00:00 malignant neoplasm of Medica l Center breast (procedure) [code = 567466044] Future Scheduled 2014 SHINGLES VACCINES ([address] [facility] - Test 00:00:00 of 2) [code = SHINGLES Medic al Center VACCINES (1 of 2)] Future Scheduled [address] [facility] - Test 00:00:00 (procedure) [code = Medical Center 94332824] Future Scheduled 2006-10-[address] [facility] - Test 00:00:00 WELLNESS (YEAR 2 or Medical Center FIRST YEAR if no IPPE) [code = MEDICARE ANNUAL WELLNESS (YEAR 2 or FIRST YEAR if no IPPE)] Future Scheduled [address] [facility] - Test 00:00:00 malignant neoplasm of Medica l Center cervix (procedure) [code = 515788303] Future Scheduled 1983 DTAP/TDAP/TD VACCINES [facility] - Test 00:00:00 (1 - Tdap) [code = Medical C enter DTAP/TDAP/TD VACCINES (1 - Tdap)] Future Scheduled 1976 COVID-19 VACCINE (1) [facility] - Test 00:00:00 [code = COVID-[address] VACCINE (1)] Future Scheduled [address] [facility] - Test 00:00:00 0-64 YRS (1 of 1 - Medical C enter PPSV23) [code = PNEUMOCOCCAL VACCINE 0-64 YRS (1 of 1 - PPSV23)] Future Scheduled [address] [facility] - Test 00:00:00 malignant neoplasm of Medica l Center colon (procedure) [code = 471640878] Encounters Start End Encounter Admission Attending Care Care Encounter Source Date/Time Date/Time Type Type Clinicians Facility Department ID 2020-08-20 2020-08-20 Outpatient [facility] [id number] [facility] 2020-08-18 2020-08-18 Outpatient [facility] [id number] [facility] 2020-08-16 2020-08-16 Outpatient [facility] [id number] [facility] 2020-08-07 2020-08-07 Outpatient [facility] [id number] [facility]00 [facility] 2020-07-09 2020-07-09 Outpatient [facility] [id number] [facility]00 [facility] 2020-06-13 2020-06-13 [facility] [id number] 11:00:00 11:00:00 [facility] Outpat[facility] ent Clinics 2020-05-24 2020-05-24 Outpatient AWILDA VERNON, MDA MDA [id number] MD 00:00:00 00:00:00 NEDA melendez 2020-05-23 2020-05-23 Outpatient AWILDA VERNON, MDA MDA [id number] MD 00:00:00 00:00:00 NEDA melendez 2020-05-13 2020-05-13 Outpatient AWILDA SULLIVAN, MDA MDA [id number] MD 00:00:00 00:00:00 FAUSTINO melendez 2020-05-07 2020-05-07 Outpatient AWILDA VERNON, MDA MDA [id number] 00:00:00 00:00:00 NEDA melendez 2020-05-07 2020-05-07 Outpatient AWILDA VERNON, MDA MDA [id number] 00:00:00 00:00:00 NEDA melendez 2020-04-30 2020-04-30 Outpatient AWILDA POLANCO, MDA MDA [id number] MD 09:15:00 23:59:00 LAMBERTO melendez 2019-10-18 2019-10-18 [facility] [id number] 08:20:00 08:20:00 [facility] Outpati ent Clinics 2019-10-10 2019-10-10 [facility] [id number] 16:00:00 16:00:00 [facility] ent Clinics Results Test Description Test Time Test Comments Results Result Comments Source POCT-GLUCOSE METER 2020-04-15 22:17:00 Test Item Value Reference Range Interpretation Comme nts POC-GLUCOSE METER ([facility]) 124 mg/dL 70-110 H : TESTED AT [facility] [address] [facility] (test code = 1538) [facility] X, [address]: Consultant Dietitian/Techni janel ID = [id number] for RAY ERVIN POCT-GLUCOSE [id number] 12:55:00 Test Item Value Reference Range Interpretation Comments POC-GLUCOSE METER 189 mg/dL 70-110 H : [facility] ([facility] (test code = [facility], 153) [address]: Consultant Dietitian/Techni janel ID = [id number] for HI KIRIT, AGLAE POCT-GLUCOSE [id number] 08:26:00 Test Item Value Reference Range Interpretation Comments POC-GLUCOSE METER 123 mg/dL 70-110 H : [facility] (test code = [facility], 153) [address]: Consultant Dietitian/Techni janel ID = [id number] for LUPE CINDYTALIB ESCOBARKEZIA POCT-GLUCOSE [id number] 21:31:00 Test Item Value Reference Range Interpretation Comments POC-GLUCOSE METER 176 mg/dL 70-110 H : Notified RN/MD: ([facility]) (test code = TESTED AT [place] [address]) [facility], [address]: Consultant Dietitian/Techni janel ID = [id number] for ZAYDA LANDON ICE LITHIUM [id number] 11:45:00 Test Item Value Reference Range Interpretation Comments LITHIUM LEVEL ([facility]) (test code 0.6 mmol/L 0.8-1.2 L = 630) POCT-GLUCOSE [id number] 17:15:00 Test Item Value Reference Range Interpretation Comments POC-GLUCOSE METER 128 mg/dL 70-110 H : TESTED A [facility] 67[address] ([facility]) (test code = [facility], 153) [address]: Consultant Dietitian/Techni janel ID = [id number] for HI DALGO, AGLAE POCT-GLUCOSE [id number] 12:20:00 Test Item Value Reference Range Interpretation Comments POC-GLUCOSE METER 108 mg/dL 70-110 : TESTED A T [facility] [address] ([facility]) (test code = [facility], 1538) [address]: Consultant Dietitian/Techni janel ID = [id number] for Sm ith, Elaina POCT-GLUCOSE [id number] 08:34:00 Test Item Value Reference Range Interpretation Comments POC-GLUCOSE METER 115 mg/dL 70-110 H : TESTED A T [facility] 6720 (BEAKER) (test code = [facility], 1538) [address]: Consultant Dietitian/Techni janel ID = [id number] for Sm ith, Elaina POCT-GLUCOSE [id number] 20:59:00 Test Item Value Reference Range Interpretation Comments POC-GLUCOSE METER 152 mg/dL 70-110 H : TESTED A T [facility] 6720 (BEAKER) (test code = [facility], 1538) [address]: Consultant Dietitian/Techni janel ID = [id number] for BA FREDWIN, EMBER POCT-GLUCOSE [id number] 17:29:00 Test Item Value Reference Range Interpretation Comments POC-GLUCOSE METER 103 mg/dL 70-110 : TESTED A T [facility] 67[address] (BEAKER) (test code [facility], = 1538) [address]: Consultant Dietitian/Techni janel ID = [id number] for TSEG GAI, TSIGHEREDA POCT-GLUCOSE [id number] 12:22:00 Test Item Value Reference Range Interpretation Comments POC-GLUCOSE METER 204 mg/dL 70-110 H : Notified RN/MD: TESTED ([facility]) (test code AT [facility] [address] [facility] = 1538) [facility], 770 30: Consultant Dietitian/Techni janel ID = [id number] for TSEG GAI, TSIGHEREDA POCT-GLUCOSE [id number] 08:43:00 Test Item Value Reference Range Interpretation Comments POC-GLUCOSE METER 132 mg/dL 70-110 H : TESTED A T [facility] 67[address] (BEAKER) (test code [facility], = 1538) [address]: Consultant Dietitian/Techni janel ID = [id number] for TSEG GAI, TSIGHEREDA POCT-GLUCOSE [id number] 07:13:00 Test Item Value Reference Range Interpretation Comments POC-GLUCOSE METER 200 mg/dL 70-110 H : TESTED A T [facility] 6720 (BEAKER) (test code = [facility], 1538) [address]: Consultant Dietitian/Techni janel ID = [id number] for OC FELICIA, KULDIP POCT-GLUCOSE [id number] 16:54:00 Test Item Value Reference Range Interpretation Comments POC-GLUCOSE METER 103 mg/dL 70-110 : TESTED A T [facility] 67[address] (BEAKER) (test code = [facility], [facility]8) [address]0003: Consultant Dietitian/Techni janel ID = [id number] for HU NT, KATIE POCT-GLUCOSE [id number] 11:03:00 Test Item Value Reference Range Interpretation Comments POC-GLUCOSE METER 155 mg/dL 70-110 H : TESTED A T [facility] 6720 (BEAKER) (test code = [facility], [facility]) [address]: Consultant Dietitian/Techni janel ID = [id number] for HU NT, KATIE POCT-GLUCOSE [id number] 07:06:00 Test Item Value Reference Range Interpretation Comments POC-GLUCOSE METER 129 mg/dL 70-110 H : TESTED A T [facility] 6720 (BEAKER) (test code = [facility], [facility]) 38[address]: Consultant Dietitian/Techni janel ID = [id number] for HU NT, KATIE POCT-GLUCOSE [id number] 20:59:00 Test Item Value Reference Range Interpretation Comments POC-GLUCOSE METER 167 mg/dL 70-110 H : TESTED A T [facility] 6720 (BEAKER) (test code = [facility], [facility]) [address]: Consultant Dietitian/Techni janel ID = [id number] for ALISSA BE, SAUDATU POCT-GLUCOSE [id number] 17:53:00 Test Item Value Reference Range Interpretation Comments POC-GLUCOSE METER 185 mg/dL 70-110 H : TESTED A T [facility] 67[address] (BEAKER) (test code = [facility], [facility]) [address]: Consultant Dietitian/Techni janel ID = [id number] for Audi thew, Remyia POCT-GLUCOSE [id number] 11:18:00 Test Item Value Reference Range Interpretation Comments POC-GLUCOSE METER 145 mg/dL 70-110 H : TESTED A T [facility] 67[address] (BEAKER) (test code = [facility], 1538) [address]: Consultant Dietitian/Techni janel ID = [id number] for Audi ashley, Stephaniea POCT-GLUCOSE [id number] 07:23:00 Test Item Value Reference Range Interpretation Comments POC-GLUCOSE METER 105 mg/dL 70-110 : [facility] ([facility]AKER) (test code = [place], 1538) [address]: Consultant Dietitian/Techni janel ID = [id number] for Audi ashley, Ingrisyia BASIC METABOLIC [id number] 04:32:00 Test Item Value Reference Range Interpretation [...] S NOT APPLICABLE FOR DIALYSIS PATIEN TS. Consultant Dietitian ID - ZAHRA MCBC W/PLT COUNT & AUTO [id number] 04:10:00 Test Item Value Reference Range Interpretation [...] PERCENT (BEAKER) (test code = 2801) POCT-GLUCOSE [id number] 21:41:00 Test Item Value Reference Range Interpretation Comments POC-GLUCOSE METER 130 mg/dL 70-110 H : TESTED A T [facility] 67[address] (BEAKER) (test code = [place], 1538) [address]: Consultant Dietitian/Techni janel ID = [id number] for UYEN MINA POCT-GLUCOSE [id number] 17:17:00 Test Item Value Reference Range Interpretation Comments POC-GLUCOSE METER 107 mg/dL 70-110 : TESTED A T [facility] 67[address] (BEAKER) (test code = [facility], 1538) [address]: Consultant Dietitian/Techni janel ID = [id number] for JONAH WARNER LITHIUM [id number] 13:12:00 Test Item Value Reference Range Interpretation Comments LITHIUM LEVEL (BEAKER) (test code 0.5 mmol/L 0.8-1.2 L = 630) POCT-GLUCOSE [id number] 07:24:00 Test Item Value Reference Range Interpretation Comments POC-GLUCOSE METER 124 mg/dL 70-110 H : TESTED A T [facility] 67[address] (BEAKER) (test code = [facility], 1538) 08[address]: Consultant Dietitian/Techni janel ID = [id number] for JONAH WARNER POCT-GLUCOSE [id number] 21:34:00 Test Item Value Reference Range Interpretation Comments POC-GLUCOSE METER 174 mg/dL 70-110 H : TESTED A T [facility] 67[address] (BEAKER) (test code = [facility], 1538) 65284: Consultant Dietitian/Techni janel ID = [id number] for DE NNIS, BING POCT-GLUCOSE [id number] 18:20:00 Test Item Value Reference Range Interpretation Comments POC-GLUCOSE METER 125 mg/dL 70-110 H : TESTED A T [facility] 67[address] (BEAKER) (test code = [facility], 1538) 35250: Consultant Dietitian/Techni janel ID = [id number] for HI DALGO, AGLAE POCT-GLUCOSE [id number] 12:47:00 Test Item Value Reference Range Interpretation Comments POC-GLUCOSE METER 100 mg/dL 70-110 : TESTED A T [facility] 67[address] (BEAKER) (test code = [facility], 1538) 53753: Consultant Dietitian/Techni janel ID = [id number] for HI DALGO, AGLAE COMPREHENSIVE METABOLIC [id number] 04:30:00 Test Item Value Reference Range Interpretation [...] S NOT APPLICABLE FOR DIALYSIS PATIEN TS. Consultant Dietitian ID - PIAYA LCBC W/PLT COUNT & AUTO [id number] 03:57:00 Test Item Value Reference Range Interpretation [...] PERCENT (BEAKER) (test code = 2801) POCT-GLUCOSE [id number] 21:19:00 Test Item Value Reference Range Interpretation Comments POC-GLUCOSE METER 111 mg/dL 70-110 H : TESTED A T [facility] 6720 (BEAKER) (test code = [facility], 153) 02351: Consultant Dietitian/Techni janel ID = [id number] for Neda Pineda POCT-GLUCOSE [id number] 17:31:00 Test Item Value Reference Range Interpretation Comments POC-GLUCOSE METER 106 mg/dL 70-110 : TESTED A T [facility] 6720 (BEAKER) (test code = [facility], 153) [address]: Consultant Dietitian/Techni janel ID = [id number] for Caleb Barcenas BLOOD [id number] 14:00:00 Test Item Value Reference Range Interpretation Comments CULTURE (BEAKER) (test No growth in 5 days code = 1095) POCT-GLUCOSE [id number] 12:14:00 Test Item Value Reference Range Interpretation Comments POC-GLUCOSE METER 113 mg/dL 70-110 H : TESTED A T [facility] 67[address] (BEAKER) (test code = [facility], 1538) 02800: Consultant Dietitian/Techni janel ID = [id number] for Caleb Barcenas POCT-GLUCOSE [id number] 08:06:00 Test Item Value Reference Range Interpretation Comments POC-GLUCOSE METER 133 mg/dL 70-110 H : TESTED A T [facility] 6720 (BEAKER) (test code = [facility], 1538) 01803: Consultant Dietitian/Techni janel ID = [id number] for Caleb Barcenas COMPREHENSIVE METABOLIC [id number] 05:57:00 Test Item Value Reference Range Interpretation [...] S NOT APPLICABLE FOR DIALYSIS PATIEN TS. Consultant Dietitian ID - PIAYA LCBC W/PLT COUNT & AUTO [id number] 05:15:00 Test Item Value Reference Range Interpretation [...] PERCENT (BEAKER) (test code = 2801) POCT-GLUCOSE [id number] 21:12:00 Test Item Value Reference Range Interpretation Comments POC-GLUCOSE METER 197 mg/dL 70-110 H : TESTED A T [facility] 67[address] (BEAKER) (test code = [place], 1538) [address]: Consultant Dietitian/Techni janel ID = [id number] for ANNEMARIE MEEKS SUMMER BLOOD [id number] 20:00:00 Test Item Value Reference Range Interpretation Comments CULTURE (BEAKER) (test No growth in 5 days code = 1095) RESPIRATORY PANEL [id number] 19:01:00 Test Item Value Reference Range Interpretation [...] decisions. This sample was tested at the [facility] Molecular Diagnostics Laboratory using the Home InnsArray Respiratory Panel. It is FDA cleared and has been verified and approved by the [facility] Molecular Diagnostics Laboratory for clinical [...] MDReport Verified Date/Time: 04/06/2020 16:45:26 Reading Location: [address] Reading Room [id number] 14:25:00 Test Item Value Reference Range Interpretation Comments PARTIAL THROMBOPLASTIN TIME 31.0 seconds 22.5-36.0 (BEAKER) (test code = 760) 6 hours after starting heparin infusion and as indicated per sliding scalePOCT- GLUCOSE [id number] 12:08:00 Test Item Value Reference Range Interpretation Comments POC-GLUCOSE METER 135 mg/dL 70-110 H : TESTED A T [facility] 6720 (BEAKER) (test code = [facility], 1538) 69344: Consultant Dietitian/Techni janel ID = [id number] for PO IRIER, JEREMY POCT-GLUCOSE [id number] 07:52:00 Test Item Value Reference Range Interpretation Comments POC-GLUCOSE METER 128 mg/dL 70-110 H : TESTED A T [facility] 6720 (BEAKER) (test code = [facility], 1538) 31644: Consultant Dietitian/Techni janel ID = [id number] for PO IRIER, JEREMY COMPREHENSIVE METABOLIC [id number] 04:36:00 Test Item Value Reference Range Interpretation [...] S NOT APPLICABLE FOR DIALYSIS PATIEN TS. Consultant Dietitian ID - PIAYA [id number] 04:10:00 Test Item Value Reference Range Interpretation Comments PARTIAL THROMBOPLASTIN TIME 29.3 seconds 22.5-36.0 (BEAKER) (test code = 760) Prior to initiating heparinCBC W/PLT COUNT & AUTO [id number] 04:02:00 Test Item Value Reference Range Interpretation [...] code = 2801) URINALYSIS W/ REFLEX URINE [id number] 00:18:00 Test Item Value Reference Range Interpretation [...] code = 516) SOURCE(BEAKER) (test code = 9721) Consultant Dietitian ID - [auto]Consultant Dietitian ID - hankPOCT-GLUCOSE [id number] 23:31:00 Test Item Value Reference Range Interpretation Comments POC-GLUCOSE METER 137 mg/dL 70-110 H : TESTED A T [facility] 6720 (BEAKER) (test code = [place], 1538) [address]: Consultant Dietitian/Techni janel ID = [id number] for CH UA, HENRISON [id number] 19:18:00 Test Item Value Reference Range Interpretation Comments PHOSPHORUS (BEAKER) (test code = 2.9 mg/dL 2.3-4.7 604) Consultant Dietitian ID - [id number] 19:18:00 Test Item Value Reference Range Interpretation Comments MAGNESIUM (BEAKER) (test code = 1.6 mg/dL 1.6-2.6 627) Consultant Dietitian ID - DBBASIC METABOLIC [id number] 19:18:00 Test Item Value Reference Range Interpretation [...] S NOT APPLICABLE FOR DIALYSIS PATIEN TS. Consultant Dietitian ID - [id number] 19:09:00 Test Item Value Reference Range Interpretation [...] is within 95-100% range. SARS-COV2/RT-PCR ([facility])2020-04-05 19:09:00 Test Item Value Reference Range Interpretation Comments SARS-COV2/RT-PCR (test Not Detected Not Detected, Negative code = 8809395) SARS-COV-2 PERFORMING LAB [facility] (test code = 0880467) Negative results do not preclude SARS-CoV-2 infection [...] of the Act.Fact Sheet for Healthcare Pro viders:https://www.[employer]/Documents/Xpert%20Xpress%20SARS%20CoV-2/Fact%20Sh eets/302-3802%53BKKP-BLS-9%20HEALTHCARE%20PROVIDERS%20FACT%20SHEET.pdfFact Sheet for Healthcare Patients:https://www.[employer]/Documents/Xpert%20Xpress%20SARS%20CoV-2/Fact%20Sheets/302-3801%20SARS-COV -2%20PATIENT%20FACT%20SHEET.pdfPerforming Laboratory:[place] [address] [place] [place], [place] [address]CHF W/PLT COUNT & AUTO DIFFERENTIAL 2020-04-05 19:01:00 [...] = 2801) RAD, CHEST, 1 VIEW, NON [id number] 17:16:00Reason for exam:->sob, feverShould this be performed at the bedside?->YesFINAL REPORT TECHNIQUE: Frontal chest radiograph dated 04/05/2020. CLINICAL HISTORY: SOB, Fever COMPARISON STUDY: Chest radiograph dated 04/01/2020 IMPRESSION:Endotracheal and enteric tubes have been removed. Lungs are clear. No pleural effusion or pneumothorax. Cardiomediastinalsilhouette is normal in size. No pulmonary edema. No fracture. Signed: Douglas [place] V erified Date/Time: 04/05/2020 17:16:45 Reading Location: [address] Transitional Reading Room POCT-GLUCOSE [id number] 17:04:00 Test Item Value Reference Range Interpretation Comments POC-GLUCOSE METER 128 mg/dL 70-110 H : TESTED A T [facility] 6720 (BEAKER) (test code = [place], 1538) [address]: Consultant Dietitian/Techni janel ID = [id number] for RO DGERS, JAMECA LACTIC ACID, [id number] 16:47:00 Test Item Value Reference Range Interpretation Comments LACTATE BLOOD VENOUS (2) (BEAKER) 1.24 mmol/L 0.50-2.20 (test code = 2872) Consultant Dietitian ID - DBPOCT-GLUCOSE [id number] 11:33:00 Test Item Value Reference Range Interpretation Comments POC-GLUCOSE METER 92 mg/dL 70-110 : TESTED A T [facility] 6720 (BEAKER) (test code = [facility], 153) 04651: Consultant Dietitian/Techni janel ID = [id number] for RODG ERS, JAMECA POCT-GLUCOSE [id number] 08:34:00 Test Item Value Reference Range Interpretation Comments POC-GLUCOSE METER 136 mg/dL 70-110 H : TESTED A T [facility] 6720 (BEAKER) (test code = [facility], 1538) 94399: Consultant Dietitian/Techni janel ID = [id number] for RO DGERS, JAMECA POCT-GLUCOSE [id number] 21:09:00 Test Item Value Reference Range Interpretation Comments POC-GLUCOSE METER 93 mg/dL 70-110 : TESTED A T [facility] 6720 (BEAKER) (test code = [facility], 1538) 85622: Consultant Dietitian/Techni janel ID = [id number] for DILCIA Z, NADINA POCT-GLUCOSE [id number] 18:02:00 Test Item Value Reference Range Interpretation Comments POC-GLUCOSE METER 84 mg/dL 70-110 : TESTED A T [facility] 6720 (BEAKER) (test code = [facility], 153) 94421: Consultant Dietitian/Techni janel ID = [id number] for CASE NDARYA HEPATIC FUNCTION [id number] 16:01:00 Test Item Value Reference Range Interpretation [...] (test code = 40 U/L 6-55 347) Consultant Dietitian ID - NTPCBC W/PLT COUNT & AUTO [id number] 15:40:00 Test Item Value Reference Range Interpretation [...] PERCENT (BEAKER) (test code = 2801) POCT-GLUCOSE [id number] 11:53:00 Test Item Value Reference Range Interpretation Comments POC-GLUCOSE METER 94 mg/dL 70-110 : TESTED A T [facility] 6720 (BEAKER) (test code = [facility] Oni [facility], 1538) 28108: Consultant Dietitian/Techni janel ID = [id number] for BROW N, DARYA POCT-GLUCOSE [id number] 09:06:00 Test Item Value Reference Range Interpretation Comments POC-GLUCOSE METER 114 mg/dL 70-110 H : TESTED A T [facility] 6720 (BEAKER) (test code = [facility] [place] [facility], 1538) 40785: Consultant Dietitian/Techni janel ID = [id number] for BR OWN, DARYA [id number] 06:19:00 Test Item Value Reference Range Interpretation Comments PHOSPHORUS (BEAKER) (test code = 3.8 mg/dL 2.3-4.7 604) Consultant Dietitian ID Caroline SWEENEY [id number] 06:19:00 Test Item Value Reference Range Interpretation Comments MAGNESIUM (BEAKER) (test code = 1.8 mg/dL 1.6-2.6 627) Consultant Dietitian ID - ZAHRA MBASIC METABOLIC [id number] 06:19:00 Test Item Value Reference Range Interpretation [...] S NOT APPLICABLE FOR DIALYSIS PATIEN TS. Consultant Dietitian ID - ZAHRA MCBC W/PLT COUNT & AUTO [id number] 05:56:00 Test Item Value Reference Range Interpretation [...] PERCENT (BEAKER) (test code = 2801) POCT-GLUCOSE [id number] 22:05:00 Test Item Value Reference Range Interpretation Comments POC-GLUCOSE METER 110 mg/dL 70-110 : TESTED A T [facility] 6720 (BEAKER) (test code = [facility], 153) 57366: Consultant Dietitian/Techni janel ID = [id number] for CA MSJOSE C POCT-GLUCOSE [id number] 18:00:00 Test Item Value Reference Range Interpretation Comments POC-GLUCOSE METER 127 mg/dL 70-110 H : TESTED A T [facility] 6720 (BEAKER) (test code = [facility], 1538) 39560: Consultant Dietitian/Techni janel ID = [id number] for Sm ith, Elaina POCT-GLUCOSE [id number] 11:47:00 Test Item Value Reference Range Interpretation Comments POC-GLUCOSE METER 100 mg/dL 70-110 : TESTED A T [facility] 6720 (BEAKER) (test code = [facility], 1538) 89439: Consultant Dietitian/Techni janel ID = [id number] for Sm ith, Elaina HEMOGLOBIN [id number] 10:02:00 Test Item Value Reference Range Interpretation Comments HEMOGLOBIN A1C (BEAKER) (test code = 6.0 % 4.3-6.1 368) POCT-GLUCOSE [id number] 07:38:00 Test Item Value Reference Range Interpretation Comments POC-GLUCOSE METER 115 mg/dL 70-110 H : TESTED A T [facility] 6720 (BEAKER) (test code = [facility], 1538) 81194: Consultant Dietitian/Techni janel ID = [id number] for Elaina Connelly U/S, ABDOMINAL, [id number] 06:20:00Abdomen limited area? Add comment if clarification [...] Leighton Walker MDReport Verified Date/Time: 04/03/2020 06:20:42 [id number] 04:33:00 Test Item Value Reference Range Interpretation Comments PHOSPHORUS (BEAKER) (test code = 3.3 mg/dL 2.3-4.7 604) Consultant Dietitian ID - DELFINO [id number] 04:33:00 Test Item Value Reference Range Interpretation Comments MAGNESIUM (BEAKER) (test code = 1.8 mg/dL 1.6-2.6 627) Consultant Dietitian ID - DELFINO LBASIC METABOLIC [id number] 04:33:00 Test Item Value Reference Range Interpretation [...] S NOT APPLICABLE FOR DIALYSIS PATIEN TS. Consultant Dietitian ID - PIAYA LHEPATIC FUNCTION [id number] 04:33:00 Test Item Value Reference Range Interpretation [...] (test code = 32 U/L 6-55 347) Consultant Dietitian ID - PIAYA LCBC W/PLT COUNT & AUTO [id number] 04:08:00 Test Item Value Reference Range Interpretation [...] PERCENT (BEAKER) (test code = 2801) POCT-GLUCOSE [id number] 21:20:00 Test Item Value Reference Range Interpretation Comments POC-GLUCOSE METER 144 mg/dL 70-110 H : Notified RN/MD: (CHANG) (test code = TESTED AT [facility] 6720 1538) [place] [facility], [address]: Consultant Dietitian/Techni janel ID = [id number] for ZAYDA LANDON MR, BRAIN, WITHOUT [id number] 20:37:00FINAL REPORT MR, BRAIN, WITHOUT CONTRAST INDICATION: [...] Parvin More Verified Date/Time: 04/02/2020 20:37:03 -GLUCOSE [id number] 17:29:00 Test Item Value Reference Range Interpretation Comments POC-GLUCOSE METER 131 mg/dL 70-110 H : TESTED A T [facility] 6720 (BEAKER) (test code = ALEKSANDER [place] [facility], 1538) 47032: Consultant Dietitian/Techni janel ID = [id number] for KATIE ZAMORA LITHIUM [id number] 16:31:00 Test Item Value Reference Range Interpretation Comments LITHIUM LEVEL (BEAKER) < mmol/L 0.8-1.2 L This test was performed (test code = 630) at:[facility] , [facility], [address] [place] [address] 19755 RAPID DRUG SCREEN, [id number] 13:58:00 Test Item Value Reference Range Interpretation [...] situations. Chain of custody not maintained. Some gaih-ltf-hrvnqea medications, as well as adulterants, may cause inaccurate results. Clinical correlation should be applied. A more comprehensivedrug screen or confirmation of a detected drug may be performed upon request.Consultant Dietitian ID - ADMINEEG W VID [id number] HR CONTINUOUS MONITORING (VEEG)2020-04-02 13:28:00Reason for exam:- >SEIZURES Should this be performed at the bedside?->YesDate of EE04/01/2020 to 04/02/2020 DATE OF REPORT: 04/02/2020 ACC: [id number] EEG Number: [id number] Start time: 04/01/2020 @ 14:41 PM Stop time: 04/02/2020 @ 11:30 AM ICD-10: R56.9 CPT Code: 29073 HISTORY: 54 y.o. Female with ADHD, bipolar [...] its interpretation. Elvie Mckay MD Epilepsy Attending [id number] 12:55:00 Test Item Value Reference Range Interpretation Comments AMMONIA (BEAKER) (test code = 348) 60 mol/L 18-72 Consultant Dietitian ID - ABILIO EPOCT-GLUCOSE [id number] 11:12:00 Test Item Value Reference Range Interpretation Comments POC-GLUCOSE METER 165 mg/dL 70-110 H : TESTED A T [facility] 6720 (BEAKER) (test code = [facility] [facility], 1538) 21214: Consultant Dietitian/Techni janel ID = [id number] for KATIE ZAMORA POCT-GLUCOSE [id number] 08:44:00 Test Item Value Reference Range Interpretation Comments POC-GLUCOSE METER 97 mg/dL 70-110 : TESTED A T [facility] 6720 (BEAKER) (test code = [facility] [place] [facility], 1538) 24597: Consultant Dietitian/Techni janel ID = [id number] for HARIS FUCHS BASIC METABOLIC [id number] 05:35:00 Test Item Value Reference Range Interpretation [...] S NOT APPLICABLE FOR DIALYSIS PATIEN TS. Consultant Dietitian ID - LACBC W/PLT COUNT & AUTO [id number] 05:04:00 Test Item Value Reference Range Interpretation [...] PERCENT (BEAKER) (test code = 2801) POCT-GLUCOSE [id number] 02:05:00 Test Item Value Reference Range Interpretation Comments POC-GLUCOSE METER 116 mg/dL 70-110 H : TESTED A T [facility] 6720 (BEAKER) (test code = [facility], 1538) 48818: Consultant Dietitian/Techni janel ID = [id number] for Neda Pineda T4, [id number] 20:56:00 Test Item Value Reference Range Interpretation Comments FREE T4 (BEAKER) (test code = 655) 1.19 ng/dL 0.70-1.48 Consultant Dietitian ID - NTPPOCT-GLUCOSE [id number] 20:54:00 Test Item Value Reference Range Interpretation Comments POC-GLUCOSE METER 99 mg/dL 70-110 : TESTED A T [facility] 6720 (BEAKER) (test code = [facility], 153) 19736: Consultant Dietitian/Techni janel ID = [id number] for DUNG DOWLING TSH/FREE T4 IF [id number] 20:18:00 Test Item Value Reference Range Interpretation Comments THYROID STIMULATING HORMONE 0.057 uIU/mL 0.350-4.940 L (BEAKER) (test code = 772) Consultant Dietitian ID - NTPVITAMIN B12 AND [id number] 20:07:00 Test Item Value Reference Range Interpretation Comments VITAMIN B12 (BEAKER) (test code = 929 pg/mL 213-816 H 774) FOLATE (BEAKER) (test code = 362) 15.80 ng/mL >=7.00 Consultant Dietitian ID - NTPHEPATIC FUNCTION [id number] 19:32:00 Test Item Value Reference Range Interpretation [...] (test code = 31 U/L 6-55 347) Consultant Dietitian ID - NTPPOCT-GLUCOSE [id number] 18:09:00 Test Item Value Reference Range Interpretation Comments POC-GLUCOSE METER 96 mg/dL 70-110 : TESTED A T [facility] 6720 (BEAKER) (test code = [facility], 1538) 96827: Consultant Dietitian/Techni janel ID = [id number] for SLY DUBOSE POCT-GLUCOSE [id number] 12:33:00 Test Item Value Reference Range Interpretation Comments POC-GLUCOSE METER 102 mg/dL 70-110 : TESTED A T [facility] 6720 (BEAKER) (test code = [facility], 1538) 26837: Consultant Dietitian/Techni janel ID = [id number] for JOSEPHINE HOOVER TROPONIN [id number] 07:53:00 Test Item Value Reference Range Interpretation [...] failure, acidosis, acute neurological disease, and persistent tachyarrhythmia.Consultant Dietitian ID - NTPSARS-COV2/RT-PCR ([facility])2020-04-01 06:29:00 Test Item Value Reference Range Interpretation Comments SARS-COV2/RT-PCR (test Not Detected Not Detected, Negative code = 2695839) SARS-COV-2 PERFORMING LAB [facility] (test code = 2648378) Negative results do not preclude SARS-CoV-2 infection [...] of the Act.Fact Sheet for Healthcare Pro viders:https://www.[employer]/Documents/Xpert%20Xpress%20SARS%20CoV-2/Fact%20Sh eets/3023802%52IAQB-KGF-6%20HEALTHCARE%20PROVIDERS%20FACT%20SHEET.pdfFact Sheet for Healthcare Patients:https://www.[employer]/Documents/Xpert%20Xpress%20SARS%20CoV-2/Fact%20Sheets/3023801%20SARS-COV -2%20PATIENT%20FACT%20SHEET.pdfPerforming Laboratory:[facility], [place] [address]CWG W/PLT COUNT & AUTO DIFFERENTIAL 2020-04-01 05:56:00 [...] code = 2801) URINALYSIS W/ REFLEX URINE [id number] 05:55:00 Test Item Value Reference Range Interpretation [...] = 1584) SOURCE(BEAKER) (test code = 2795) Consultant Dietitian ID - [auto]Consultant Dietitian ID - [id number] 05:42:00 Test Item Value Reference Range Interpretation Comments PHOSPHORUS (BEAKER) (test code = 3.0 mg/dL 2.3-4.7 604) Consultant Dietitian ID - ZAHRA [id number] 05:42:00 Test Item Value Reference Range Interpretation Comments MAGNESIUM (BEAKER) (test code = 2.1 mg/dL 1.6-2.6 627) Consultant Dietitian ID - ZAHRA MBASIC METABOLIC [id number] 05:42:00 Test Item Value Reference Range Interpretation [...] S NOT APPLICABLE FOR DIALYSIS PATIEN TS. Consultant Dietitian ID - ZAHRA MCREATINE KINASE (CK)2020-04-01 05:42:00 Test Item Value Reference Range Interpretation Comments CREATINE KINASE TOTAL (BEAKER) (test 79 U/L 29-200 code = 380) Consultant Dietitian ID - ZAHRA MPT/[id number] 05:34:00 Test Item Value Reference Range Interpretation [...] mechanical heart valves.RAD, CHEST, 1 VIEW, NON [id number] 05:12:00Reason for exam:->post intubationIs the patient ?->UnknownFINAL [...] MDReport Verified Date/Time: 04/01/2020 05:12:05 POC Glucose, [id number] 05:26:00 Test Item Value Reference Range Interpretation Comments POC Glucose (test 136 mg/dL 70-115 H Notify RN or MDIf you code = POCGLUC) consider you r patient critically ill, the Moira Accu-Chek InformII metershould not be used for Glucose determinations. Draw a venous Glucose and send to the Main Lab for Analysis. [id number] 08:15:00 Test Item Value Reference Range Interpretation Comments Lovell (test code = LI) 0.44 mmol/L 0.6-1.2 L POC Glucose, [id number] 05:37:00 Test Item Value Reference Range Interpretation Comments POC Glucose (test 134 mg/dL 70-115 H If you con snaker tractor driver your code = POCGLUC) patient crit ically ill, the Moira Accu- Chek InformII meters hould not be used for Glu cose determinations. Draw a venous Glucose and send to the Main Lab for Analysis. POC Glucose, [id number] 07:28:00 Test Item Value Reference Range Interpretation Comments POC Glucose (test 128 mg/dL 70-115 H If you con snaker tractor driver your code = POCGLUC) patient crit ically ill, the Moira Accu- Chek InformII meters hould not be used for Glu cose determinations. Draw a venous Glucose and send to the Main Lab for Analysis. POC Glucose, [id number] 20:18:00 Test Item Value Reference Range Interpretation Comments POC Glucose (test 121 mg/dL 70-115 H If you con snaker tractor driver your code = POCGLUC) patient crit ically ill, the Moira Accu- Chek InformII meters hould not be used for Glu cose determinations. Draw a venous Glucose and send to the Main Lab for Analysis. BHCG, Serum, [id number] 22:36:00 Test Item Value Reference Range Interpretation Comments Preg Qual [Se] (test code = BSHCG) Negative Negative N POC Glucose, [id number] 15:14:00 Test Item Value Reference Range Interpretation Comments POC Glucose (test 117 mg/dL 70-115 H If you con snaker tractor driver your code = POCGLUC) patient crit ically ill, the Moira Accu- Chek InformII meters hould not be used for Glu cose determinations. Draw a venous Glucose and send to the Main Lab for Analysis.
--- NOTE | 2021-05-03 20:16 | ER ---
Nurse's Notes [facility] Name: Wendi Norton Age: 55 yrs Sex: Female : 1965 Arrival Date: 05/03/2021 Time: 19:04 Bed 7 Private MD: Diagnosis: Dental caries;Musculoskeletal Pain;Diabetes, Chronic Presentation: 05/03 19:21 Chief complaint: Patient states: she is here to follow-up on her last visit when she bb had x-rays to her legs and she is still having ear pain. Coronavirus screen: At this time, the client does not indicate any symptoms associated with coronavirus-19. Ebola Screen: No symptoms or risks identified at this time. Initial Sepsis Screen: Does the patient meet any 2 criteria? No. Patient's initial sepsis screen is negative. Does the patient have a suspected source of infection?. Risk Assessment: Do you want to hurt yourself or someone else?. Onset of symptoms is unknown. 19:21 Method Of Arrival: Ambulatory bb 19:21 Acuity: RAUL 3 bb Historical: - Allergies: 19:25 No Known Allergies; bb - Home Meds: 19:25 clonazepam 2 mg Oral tab 1 tab daily [Active]; fluoxetine 20 mg Oral tab 1 tab once bb daily [Active]; lithium carbonate 300 mg Oral cpER 1 tab nightly [Active]; Tylenol #3 Oral [Active]; - PMHx: 19:25 ADD/ADHD; Asthma; Bipolar disorder; breast cancer- in remission; COPD; Depression; bb Diabetes - NIDDM; Diverticulitis; Hepatitis; Pain Management; PTSD; - PSHx: 19:25 Tubal ligation; bb - Immunization history:: Adult Immunizations up to date. - Social history:: Smoking status: Patient reports the use of cigarette tobacco products, smokes one-half pack cigarettes per day. Screenin:38 Abuse screen: Denies threats or abuse. Nutritional screening: No deficits noted. ea Tuberculosis screening: No symptoms or risk factors identified. Fall Risk None identified. Assessment: 19:45 General: Appears in no apparent distress. comfortable, Behavior is calm, cooperative. rr5 Pain: Complains of pain in ears and legs Pain currently is 8 out of 10 on a pain scale. Quality of pain is described as aching, Pain began gradually, Is intermittent. Neuro: Level of Consciousness is awake, alert, obeys commands, Oriented to person, place, time. Cardiovascular: Capillary refill < 3 seconds Patient's skin is warm and dry. Respiratory: Airway is patent Respiratory effort is even, unlabored, Respiratory pattern is regular, symmetrical. GI: No signs and/or symptoms were reported involving the gastrointestinal system. : No signs and/or symptoms were reported regarding the genitourinary system. EENT: Reports pain in ears. Derm: Skin temperature is warm. Musculoskeletal: Reports pain in right leg and left leg. 20:26 Reassessment: Patient appears in no apparent distress at this time. Patient is alert, rr5 oriented x 3, equal unlabored respirations, skin warm/dry/pink. discharge instruction given and explained without complaints made. Vital Signs: 19:21 BP 95 / 60; Pulse 64; Resp 18 S; Temp 97.8(TE); Pulse Ox 94% on R/A; Weight 103.3 kg bb (M); Height 5 ft. 4 in. (162.56 cm) (R); Pain 8/10; 19:21 Body Mass Index 39.09 (103.30 kg, 162.56 cm) bb ED Course: 19:04 Patient arrived in ED. as 19:23 Triage completed. bb 19:25 Arm band placed on Patient placed in an exam room, on a stretcher, on pulse oximetry. bb 19:28 Jonnie Camara, KEYUR is Primary Nurse. rr5 19:30 Rommel Samuels MD is Attending Physician. 7 19:38 Patient has correct armband on for positive identification. Bed in low position. Call ea light in reach. 20:15 [place] DDS is Referral Physician. mh7 20:27 No provider procedures requiring assistance completed. Patient did not have IV access rr5 during this emergency room visit. Administered Medications: No medications were administered Outcome: 20:16 Discharge ordered by . mh7 20:27 Discharged to home ambulatory. rr5 20:27 Condition: stable 20:27 Discharge instructions given to patient, Instructed on discharge instructions, follow up and referral plans. medication usage, Demonstrated understanding of instructions, follow-up care, medications, Prescriptions given X 2. 20:27 Patient left the ED. rr5 Signatures: Kelley Drummond Brenda, RN RN bb Akua Simons RN RN ea Jonnie Camara RN RN rr5 Rommel Samuels MD MD mh7
--- NOTE | 2021-05-03 20:16 | EDPHYS ---
Physician Documentation [facility] Name: Wendi Norton Age: 55 yrs Sex: Female : 1965 Arrival Date: 05/03/2021 Time: 19:04 Bed 7 Private MD: ED Physician Rommel Samuels HPI: 05/03 20:02 This 55 yrs old Female presents to ER via Ambulatory with complaints of R, mh7 RETURN TO FINISH VISIT. 20:02 Patient here for follow up on previous visit 1 weekago. Onset: The symptoms/episode mh7 began/occurred 1 week(s) ago. Severity of symptoms: At their worst the symptoms were mild 5 day(s) ago, in the emergency department the symptoms have improved markedly. The patient has been recently seen at the [facility] Emergency Department, last week. Patient states that she came to follow up from visit one week ago for bilateral leg pain and ear pain. She left against medical advice prior to test result return. She states that her symptoms have improved.. Historical: - Allergies: 19:25 No Known Allergies; bb - Home Meds: 19:25 clonazepam 2 mg Oral tab 1 tab daily [Active]; fluoxetine 20 mg Oral tab 1 tab once bb daily [Active]; lithium carbonate 300 mg Oral cpER 1 tab nightly [Active]; Tylenol #3 Oral [Active]; - PMHx: 19:25 ADD/ADHD; Asthma; Bipolar disorder; breast cancer- in remission; COPD; Depression; bb Diabetes - NIDDM; Diverticulitis; Hepatitis; Pain Management; PTSD; - PSHx: 19:25 Tubal ligation; bb - Immunization history:: Adult Immunizations up to date. - Social history:: Smoking status: Patient reports the use of cigarette tobacco products, smokes one-half pack cigarettes per day. ROS: 20:02 Constitutional: Negative for fever, chills, and weight loss, Eyes: Negative for injury, mh7 pain, redness, and discharge, Neck: Negative for injury, pain, and swelling, Cardiovascular: Negative for chest pain, palpitations, and edema, Respiratory: Negative for shortness of breath, cough, wheezing, and pleuritic chest pain, Abdomen/GI: Negative for abdominal pain, nausea, vomiting, diarrhea, and constipation, Back: Negative for injury and pain, : Negative for injury, bleeding, discharge, and swelling. 20:02 Skin: Negative for injury, rash, and discoloration, Neuro: Negative for headache, weakness, numbness, tingling, and seizure, Psych: Negative for depression, anxiety, suicide ideation, homicidal ideation, and hallucinations, Allergy/Immunology: Negative for hives, rash, and allergies, Endocrine: Negative for neck swelling, polydipsia, polyuria, polyphagia, and marked weight changes, Hematologic/Lymphatic: Negative for swollen nodes, abnormal bleeding, and unusual bruising. 20:02 ENT: Positive for dental pain, ear pain, improved, Negative for drainage from ear(s), foreign body sensation, Gum pain hearing loss, pulling at ears, tinnitus, nasal discharge, rhinorrhea, sinus congestion, sinus pain, sore throat, difficulty swallowing, difficulty handling secretions, hoarseness. 20:02 MS/extremity: Positive for pain, swelling, improved, Negative for abrasion, bite, contusion, decreased range of motion, deformity, ecchymosis, erythema, laceration, paresthesias, puncture, rash, tenderness, tingling, warmth. Exam: 20:02 Constitutional: This is a well developed, well nourished patient who is awake, alert, mh7 and in no acute distress. Head/Face: Normocephalic, atraumatic. Eyes: Pupils equal round and reactive to light, extra-ocular motions intact. Lids and lashes normal. Conjunctiva and sclera are non-icteric and not injected. Cornea within normal limits. Periorbital areas with no swelling, redness, or edema. 20:02 Neck: Trachea midline, no thyromegaly or masses palpated, and no cervical lymphadenopathy. Supple, full range of motion without nuchal rigidity, or vertebral point tenderness. No Meningismus. Chest/axilla: Normal chest wall appearance and motion. Nontender with no deformity. No lesions are appreciated. Cardiovascular: Regular rate and rhythm with a normal S1 and S2. No gallops, murmurs, or rubs. Normal PMI, no JVD. No pulse deficits. Respiratory: Lungs have equal breath sounds bilaterally, clear to auscultation and percussion. No rales, rhonchi or wheezes noted. No increased work of breathing, no retractions or nasal flaring. Abdomen/GI: Soft, non-tender, with normal bowel sounds. No distension or tympany. No guarding or rebound. No evidence of tenderness throughout. Back: No spinal tenderness. No costovertebral tenderness. Full range of motion. Skin: Warm, dry with normal turgor. Normal color with no rashes, no lesions, and no evidence of cellulitis. MS/ Extremity: Pulses equal, no cyanosis. Neurovascular intact. Full, normal range of motion. Neuro: Awake and alert, GCS 15, oriented to person, place, time, and situation. Cranial nerves II-XII grossly intact. Motor strength 5/5 in all extremities. Sensory grossly intact. Cerebellar exam normal. Normal gait. Psych: Awake, alert, with orientation to person, place and time. Behavior, mood, and affect are within normal limits. 20:02 ENT: External ear(s): are unremarkable, Ear canal(s): are normal, clear, TM's: are normal, Nose: is normal, Mouth: is normal, Posterior pharynx: is normal, airway is patent, Dental exam: dental caries, that is moderate, diffusely, Voice: is normal. Vital Signs: 19:21 BP 95 / 60; Pulse 64; Resp 18 S; Temp 97.8(TE); Pulse Ox 94% on R/A; Weight 103.3 kg bb (M); Height 5 ft. 4 in. (162.56 cm) (R); Pain 8/10; 19:21 Body Mass Index 39.09 (103.30 kg, 162.56 cm) bb MDM: 20:02 Differential Diagnosis Dental caries, leg pain, Otalgia, Otitis Media. Data reviewed: [facility] vital signs, nurses notes, diagnostic data from outside facility, cardiac enzymes, CBC, EKG, electrolytes, old medical records. Data interpreted:. 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 Response to treatment: the patient's symptoms have markedly improved after treatment. ED course: Well appearing, NAD, VSS, no focal neurological deficits. Discussed all test results form visit 04/25/21 including US lower extremities, chest x ray, labs. She requests prescription for Ibuprofen for her dental pain and a replacement Glucometer.. 20:16 Patient medically screened. 7 Administered Medications: No medications were administered Disposition: 05/03/21 20:16 Discharged to Home. Impression: Dental caries, Musculoskeletal Pain, Diabetes, Chronic. - Condition is Stable. - Discharge Instructions: Musculoskeletal Pain, Dental Pain, [id number], Type 2 Diabetes Mellitus, Diagnosis, Adult, [id number], Dental Caries, [id number]. - Prescriptions for glucometer - Test blood glucose level ACHS 1 unit by SUBCUTANEOUS route 4 times per day; 1 unit. Ibuprofen 600 mg Oral Tablet - take 1 tablet by ORAL route every 8 hours As needed take with food; 15 tablet. - Medication Reconciliation Form, Thank You Letter, Antibiotic Education, Prescription Opioid Use form. - Follow up: Private Physician; When: 1 - 2 days; Reason: Worsening of condition, Recheck today's complaints, Continuance of care, Re-evaluation by your physician. Follow up: [facility]; When: 2 - 3 days; Reason: Worsening of condition, Recheck today's complaints. - Problem is an ongoing problem. - Symptoms have improved. Signatures: Carli Ren RN RN bb Jonnie Camara RN RN rr5 Rommel Samuels MD MD 7 Corrections: (The following items were deleted from the chart) 20:27 20:16 05/03/2021 20:16 Discharged to Home. Impression: Dental caries; Musculoskeletal rr5 Pain; Diabetes, Chronic. Condition is Stable. Forms are Medication Reconciliation Form, Thank You Letter, Antibiotic Education, Prescription Opioid Use. Follow up: Private Physician; When: 1 - 2 days; Reason: Worsening of condition, Recheck today's complaints, Continuance of care, Re-evaluation by your physician. Follow up: [facility]; When: 2 - 3 days; Reason: Worsening of condition, Recheck today's complaints. Problem is an ongoing problem. Symptoms have improved. [facility]
[2021-05-03 20:35] VITALS: BP 95/60; TEMP 97.8; O2SAT 94
== END 2021-05-03 20:27 | disposition home or self-care (01) ==
LOC: ER 19:01
DX: M79.18 Myalgia, other site (principal); K02.9 Dental caries, unspecified; E11.9 Type 2 diabetes mellitus without complications; F31.9 Bipolar disorder, unspecified; F17.210 Nicotine dependence, cigarettes, uncomplicated
CPT/HCPCS: 99283